=== PATIENT | female | born 1950 | race Two or more races ===

== ENCOUNTER → 2020-10-07 11:09 | Outpatient (BNVA) | payer MEDICARE, SELFPAY | PROVIDERS: PCP Internal Medicine; Visit Provider Hospitalist | DX: Z76.89 Persons encountering health services in other specified circumstances (principal) | CPT/HCPCS: Q3014 ==

== ENCOUNTER 2020-11-07 17:08 | Inpatient (IN) | payer MEDICARE, SELFPAY ==
--- NOTE | ~2020-11-07 | XR_ITS ---
EXAMINATION: XR CHEST CLINICAL INFORMATION: Asthma COMPARISON: Prior chest April 2020 TECHNIQUE: 2 views of the chest were obtained. FINDINGS: Stable calcification of the dorsal aorta No significant abnormality is noted involving the heart, lungs, mediastinum, bony thorax or soft tissues. 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 No change.
[2020-11-07 17:18] VITALS: BP 163/70; PULSE 96; RESP 18; TEMP 36.8; O2SAT 98; BMI 25.7
--- NOTE | 2020-11-07 20:40 | ECG_ITS ---
Test Reason : CHEST PAIN Blood Pressure : / mmHG Vent. Rate : 000 BPM Atrial Rate : 000 BPM P-R Int : 000 ms QRS Dur : 000 ms QT Int : 000 ms P-R-T Axes : 000 000 000 degrees QTc Int : 000 ms No QRS complexes found, no ECG analysis possible When compared with ECG of 07-NOV-2020 17:15, Current undetermined rhythm precludes rhythm comparison, needs review Referred By: Jeanna Jon Electronically Signed By:
[2020-11-07 20:44] VITALS: BP 174/71; PULSE 69; RESP 20; TEMP 36.5; O2SAT 97
--- NOTE | 2020-11-07 20:57 | ED.ASTHMA ---
HPI - Asthma General Chief Complaint: Asthma Stated Complaint: 1 week sob, CP Time Seen by Provider: 11/07/20 20:39 Source: patient Mode of arrival: ambulatory History of Present Illness HPI Narrative: 70-year-old female with a past medical history of asthma on chronic prednisone 5 mg daily, eosinophilia, COPD, presenting to the ED complaining of worsening dry cough, SOB/dyspnea and wheezing x1 week. States symptoms consistent with her asthma. Also reports substernal chest pain. Denies fever, chills, abdominal pain, nausea/vomiting/diarrhea, exposure to COVID-19, recent travel, LE edema MD complaint: asthma attack , shortness of breath and wheezing Related Data Home Medications Medication Instructions Recorded Confirmed aripiprazole 5 mg tablet 5 mg PO DAILY 10/07/20 11/07/20 budesonide 0.5 mg/2 mL suspension 0.5 mg INHALATION BID 10/07/20 11/07/20 for nebulization buspirone 5 mg tablet 5 mg PO BID 10/07/20 11/07/20 escitalopram oxalate 10 mg tablet 10 mg PO DAILY 10/07/20 11/07/20 fluticasone 250 mcg-salmeterol 50 1 inh INHALATION BID 10/07/20 11/07/20 mcg/dose blistr powdr for inhalation mepolizumab 100 mg/mL subcutaneous 100 mg SUBCUT Q4W 10/07/20 11/07/20 syringe montelukast 10 mg tablet 10 mg PO BEDTIME 10/07/20 11/07/20 omeprazole 20 mg capsule,delayed 20 mg PO DAILY 10/07/20 11/07/20 release roflumilast 500 mcg tablet 500 mcg PO DAILY 10/07/20 11/07/20 rosuvastatin 10 mg tablet 10 mg PO BEDTIME 10/07/20 11/07/20 furosemide 1 tab PO DAILY 11/07/20 11/07/20 Previous Rx's Medication Instructions Recorded trazodone 50 mg tablet 50 mg PO BEDTIME PRN 90 Days #90 08/30/20 tab loratadine 10 mg tablet 10 mg PO DAILY #90 tab 09/22/20 prednisone 5 mg tablet 10 mg PO DAILY 30 Days #60 tab 10/07/20 Allergies Allergy/AdvReac Type Severity Reaction Status Date / Time acetaminophen Allergy Unknown vomitting Verified 10/07/20 21:22 [Tylenol-Codeine #3] atorvastatin [Lipitor] Allergy Unknown nausea Verified 10/07/20 21:22 levofloxacin [From LEVAQUIN] Allergy Unknown RASH SOB, Verified 10/07/20 21:22 DIZZYNESS codeine [CODEINE] AdvReac Unknown NAUSEA & Verified 10/07/20 21:22 VOMITING morphine [MORPHINE] AdvReac Unknown NAUSEA & Verified 10/07/20 21:22 VOMITING pravastatin AdvReac Unknown myalgia Verified 10/07/20 21:22 Review of Systems Review of Systems: Constitutional: No Weight loss, No Fever, No Chills ENT/Mouth: No Ear Pain, No Nasal Congestion, No Sinus Pain, No Hoarseness, No sore throat, No Rhinorrhea, No Swallowing Difficulty Cardiovascular: +Chest Pain, + SOB, + Dyspnea on Exertion, No Orthopnea, No Edema, No Palpitations Respiratory: + Cough, No Sputum, + Wheezing Gastrointestinal: No Nausea, No Vomiting, No Diarrhea, No Constipation, No Abdominal pain Genitourinary: No Dysuria, No Hematuria Musculoskeletal: No joint pain, No Myalgias, No Joint Swelling Skin: No Skin Lesions, No rash Neuro: No Headache Yes all other systems are reviewed and are negative [facility] Past Medical History Attestation statement: The following information was validated with the patient. Medical History (Updated 11/08/20 @ 00:39 by ROBBIE Aleman) Asthma Chronic allergic rhinitis Eosinophilia Pneumonia Steroid dependent Surgical History History of knee surgery History of nasal polypectomy History of shoulder surgery History of tubal ligation Family History Family History (Updated 07/18/20 @ 13:34 by Omaira Ureña Shyam) Father Medical history unknown Mother Medical history unknown Social History Social History (Updated 10/07/20 @ 11:14 by Reema Tellez MA) Alcohol intake: never Smoking Status: Never smoker Smoked in Last 30 Days: No Use of substances other than those prescribed or required for medical reasons: No Advance Directives: No Advance Directives Information Provided: Yes Physical Exam Vital Signs: Vital Signs: Last Vital Signs Temp 97.7 F 11/07/20 20:44 Pulse 63 11/07/20 23:39 Resp 20 11/07/20 20:44 BP 174/71 H 11/07/20 20:44 Pulse Ox 97 11/07/20 20:44 Body Mass Index 25.7 Const: General: cooperative and no acute distress Orientation/consciousness: patient oriented x3 Limitations: no limitations HENMT: Head: Yes normal to inspection Ears: hearing grossly normal bilaterally General nose exam: Normal external nose present Face and sinus: Yes normal facial exam Eyes: General: appearance normal, both eyes and all related structures EOM: EOMs intact bilaterally Neck: Neck: Yes normal visual inspection and Yes no meningeal signs Resp: Effort & Inspection: normal respiratory effort Auscultation: wheezes expiratory wheezes, inspiratory wheezes and throughout Cardio: Rate: regular rate Heart sounds: S1 normal heart sound present and S2 normal heart sound present GI: Inspection: Yes normal to inspection Palpation (GI): Soft to palpation, nontender, no guarding and not rigid Skin: Rashes: no rashes Wounds: no wounds Neuro: General: patient oriented x3 and no meningeal signs Gait exam (Neuro): Normal gait present Extrem: General: Yes normal to inspection and Yes no pedal edema Course Course Course Narrative: -labs unremarkable including troponin. CXR negative -COVID-19/influenza/RSV negative -0038-- On re-evaluation patient still with diffuse inspiratory and expiratory wheezing. Hourlong treatment ordered. Plan for admission MDM - Asthma MDM Narrative Medical decision making narrative: 70-year-old female with a past medical history of asthma on chronic prednisone 5 mg daily, eosinophilia, COPD, presenting to the ED complaining of worsening dry cough, SOB/dyspnea and wheezing x1 week. On exam VS as, NAD, diffuse inspiratory and expiratory wheeze. No LE edema or calf tenderness. Concern for asthma/COPD exacerbation vs COVID-19/viral infection. Rule out ACS. Symptoms atypical for PE Plan: EKG, labs, CXR, albuterol, magnesium, Decadron, re-evaluate Lab Data Result diagrams: 11/07/20 21:11 11/07/20 21:11 Labs: Lab Results 11/07/20 11/07/20 11/07/20 Range/Units 21:11 21:11 21:11 WBC 7.9 (4.8-10.8) X10*3/uL RBC 4.71 (4.20-5.50) X10*6/uL Hgb 12.6 (12.0-16.0) g/dl Hct 40.6 (37-47) % MCV 86.2 (80-98) fL MCH 26.8 L (27.0-33.0) pg MCHC 31.0 (31.0-35.0) g/dl RDW 14.0 (11.0-16.0) % Plt Count 377 (160-400) X10*3/uL MPV 9.5 (9.4-12.3) fL Immature Gran % (Auto) 0.1 (0.0-0.4) % Neut % (Auto) 59.8 (45-73) % Lymph % (Auto) 27.1 (20-40) % Kleberg % (Auto) 6.2 (2-11) % Eos % (Auto) 5.7 H (0-4) % Baso % (Auto) 1.1 (0-2) % Lymph # (Auto) 2.1 (1.2-4.9) X10*3/uL Kleberg # (Auto) 0.5 (0.1-1.2) X10*3/uL Eos # (Auto) 0.5 H (0.0-0.4) X10*3/uL Baso # (Auto) 0.1 (0.0-0.2) X10*3/uL Abs Immat Gran (auto) 0.01 (0.00-0.03) X10*3/uL Absolute Neuts (auto) 4.7 (2.0-8.3) X10*3/uL Absolute Nucleated RBC 0.000 (0.0-0.012) X10*3/uL Nucleated RBC % (auto) 0.0 (0.0-0.2) /100WBC Hold Blue Top SEE NOTE Sodium 142 (135-145) mmol/L Potassium 4.1 (3.3-5.1) mmol/L Chloride 105 (96-108) mmol/L Carbon Dioxide 28 (22-29) mmol/L Anion Gap 13 (12-20) BUN 17 H (9-16) mg/dL Creatinine 0.96 (0.5-1.4) mg/dL Estim Creat Clear Calc 49.0 Estimated GFR 57 Random Glucose 102 (60-115) mg/dL Calcium 9.4 (8.4-10.2) mg/dL Magnesium 2.0 (1.6-2.6) mg/dL Ferritin (10-250) ng/mL Total Bilirubin 0.3 (0.0-1.0) mg/dL Direct Bilirubin < 0.2 (0.0-0.5) mg/dL AST 17 (5-31) U/L ALT 11 (0-31) U/L Alkaline Phosphatase 74 (39-117) U/L Lactate Dehydrogenase 170 (122-220) U/L Troponin I High Sens (<3.5-17.0) ng/L C-Reactive Protein 0.43 (< or = 0.50) mg/dL Total Protein 7.5 (6.5-8.0) g/dL Albumin 4.5 (3.5-5.0) g/dL Procalcitonin ng/mL Coronavirus (PCR) (Negative) Influenza Type A (PCR) (Negative) Influenza Type B (PCR) (Negative) RSV RNA Qual (PCR) (Negative) 11/07/20 11/07/20 11/07/20 Range/Units 21:11 21:11 21:11 WBC (4.8-10.8) X10*3/uL RBC (4.20-5.50) X10*6/uL Hgb (12.0-16.0) g/dl Hct (37-47) % MCV (80-98) fL MCH (27.0-33.0) pg MCHC (31.0-35.0) g/dl RDW (11.0-16.0) % Plt Count (160-400) X10*3/uL MPV (9.4-12.3) fL Immature Gran % (Auto) (0.0-0.4) % Neut % (Auto) (45-73) % Lymph % (Auto) (20-40) % Kleberg % (Auto) (2-11) % Eos % (Auto) (0-4) % Baso % (Auto) (0-2) % Lymph # (Auto) (1.2-4.9) X10*3/uL Kleberg # (Auto) (0.1-1.2) X10*3/uL Eos # (Auto) (0.0-0.4) X10*3/uL Baso # (Auto) (0.0-0.2) X10*3/uL Abs Immat Gran (auto) (0.00-0.03) X10*3/uL Absolute Neuts (auto) (2.0-8.3) X10*3/uL Absolute Nucleated RBC (0.0-0.012) X10*3/uL Nucleated RBC % (auto) (0.0-0.2) /100WBC Hold Blue Top Sodium (135-145) mmol/L Potassium (3.3-5.1) mmol/L Chloride (96-108) mmol/L Carbon Dioxide (22-29) mmol/L Anion Gap (12-20) BUN (9-16) mg/dL Creatinine (0.5-1.4) mg/dL Estim Creat Clear Calc Estimated GFR Random Glucose (60-115) mg/dL Calcium (8.4-10.2) mg/dL Magnesium (1.6-2.6) mg/dL Ferritin 67 (10-250) ng/mL Total Bilirubin (0.0-1.0) mg/dL Direct Bilirubin (0.0-0.5) mg/dL AST (5-31) U/L ALT (0-31) U/L Alkaline Phosphatase (39-117) U/L Lactate Dehydrogenase (122-220) U/L Troponin I High Sens < 3.5 (<3.5-17.0) ng/L C-Reactive Protein (< or = 0.50) mg/dL Total Protein (6.5-8.0) g/dL Albumin (3.5-5.0) g/dL Procalcitonin < 0.02 ng/mL Coronavirus (PCR) (Negative) Influenza Type A (PCR) (Negative) Influenza Type B (PCR) (Negative) RSV RNA Qual (PCR) (Negative) 11/07/20 Range/Units 21:20 WBC (4.8-10.8) X10*3/uL RBC (4.20-5.50) X10*6/uL Hgb (12.0-16.0) g/dl Hct (37-47) % MCV (80-98) fL MCH (27.0-33.0) pg MCHC (31.0-35.0) g/dl RDW (11.0-16.0) % Plt Count (160-400) X10*3/uL MPV (9.4-12.3) fL Immature Gran % (Auto) (0.0-0.4) % Neut % (Auto) (45-73) % Lymph % (Auto) (20-40) % Kleberg % (Auto) (2-11) % Eos % (Auto) (0-4) % Baso % (Auto) (0-2) % Lymph # (Auto) (1.2-4.9) X10*3/uL Kleberg # (Auto) (0.1-1.2) X10*3/uL Eos # (Auto) (0.0-0.4) X10*3/uL Baso # (Auto) (0.0-0.2) X10*3/uL Abs Immat Gran (auto) (0.00-0.03) X10*3/uL Absolute Neuts (auto) (2.0-8.3) X10*3/uL Absolute Nucleated RBC (0.0-0.012) X10*3/uL Nucleated RBC % (auto) (0.0-0.2) /100WBC Hold Blue Top Sodium (135-145) mmol/L Potassium (3.3-5.1) mmol/L Chloride (96-108) mmol/L Carbon Dioxide (22-29) mmol/L Anion Gap (12-20) BUN (9-16) mg/dL Creatinine (0.5-1.4) mg/dL Estim Creat Clear Calc Estimated GFR Random Glucose (60-115) mg/dL Calcium (8.4-10.2) mg/dL Magnesium (1.6-2.6) mg/dL Ferritin (10-250) ng/mL Total Bilirubin (0.0-1.0) mg/dL Direct Bilirubin (0.0-0.5) mg/dL AST (5-31) U/L ALT (0-31) U/L Alkaline Phosphatase (39-117) U/L Lactate Dehydrogenase (122-220) U/L Troponin I High Sens (<3.5-17.0) ng/L C-Reactive Protein (< or = 0.50) mg/dL Total Protein (6.5-8.0) g/dL Albumin (3.5-5.0) g/dL Procalcitonin ng/mL Coronavirus (PCR) NEGATIVE (Negative) Influenza Type A (PCR) NEGATIVE (Negative) Influenza Type B (PCR) NEGATIVE (Negative) RSV RNA Qual (PCR) NEGATIVE (Negative) Discharge Plan Discharge Clinical Impression: Asthma Patient Disposition: Admitted As Inpatient Prescriptions: No Action trazodone 50 mg tablet 50 mg PO BEDTIME PRN (Reason: sleep) 90 Days Qty: 90 RF: 2 loratadine 10 mg tablet 10 mg PO DAILY Qty: 90 RF: 3 furosemide 20 mg tablet 1 tab PO DAILY RF: 0 rosuvastatin 10 mg tablet 10 mg PO BEDTIME RF: 0 fluticasone propion-salmeterol 250-50 mcg/dose blister with device 1 inh inhalation BID RF: 0 budesonide 0.5 mg/2 mL suspension for nebulization 0.5 mg inhalation BID RF: 0 montelukast 10 mg tablet 10 mg PO BEDTIME RF: 0 Daliresp 500 mcg tablet 500 mcg PO DAILY RF: 0 aripiprazole 5 mg tablet 5 mg PO DAILY RF: 0 escitalopram oxalate 10 mg tablet 10 mg PO DAILY RF: 0 buspirone 5 mg tablet 5 mg PO BID RF: 0 Nucala 100 mg/mL syringe 100 mg subcut Q4W RF: 0 omeprazole 20 mg capsule,delayed release(DR/EC) 20 mg PO DAILY RF: 0 prednisone 5 mg tablet 10 mg PO DAILY 30 Days Qty: 60 RF: 3
[2020-11-07 21:17] LABS: MANUAL DIFF FLAG NO
[2020-11-07] MEDS: Magnesium Sulfate/H2O 2 GM/50 ML PIGGYBACK IV (21:22)
[2020-11-07] MEDS: Albuterol Sulfate 90 MCG 8 GM INHALER 4 PUFF INHALE (21:26)
[2020-11-07 21:29] LABS: Basophils Absolute Auto 0.1 X10*3/uL (0.0-0.2); Basophils Percent Auto 1.1 % (0-2); Eosinophils Absolute Auto 0.5 X10*3/uL (0.0-0.4); Eosinophils Percent Auto 5.7 % (0-4); Hematocrit 40.6 % (37-47); Hemoglobin 12.6 g/dl (12.0-16.0); Imm Gran Abs Auto 0.01 X10*3/uL (0.00-0.03); Imm Gran Pct Auto 0.1 % (0.0-0.4); Lymphocytes Absolute Auto 2.1 X10*3/uL (1.2-4.9); Lymphocytes Percent Auto 27.1 % (20-40); Mean Corpuscular Hemoglobin 26.8 pg (27.0-33.0); Mean Corpuscular Volume 86.2 fL (80-98); Mean Platelet Volume 9.5 fL (9.4-12.3); Monocytes Absolute Auto 0.5 X10*3/uL (0.1-1.2); Monocytes Percent Auto 6.2 % (2-11); Neutrophils Absolute Auto 4.7 X10*3/uL (2.0-8.3); Neutrophils Percent Auto 59.8 % (45-73); Platelet Count 377 X10*3/uL (160-400); Red Blood Count 4.71 X10*6/uL (4.20-5.50); White Blood Count 7.9 X10*3/uL (4.8-10.8)
--- NOTE | 2020-11-07 21:41 | PC.NURSE ---
PATIENT DOES NOT WANT PRESENTLY DECADRON. PROVIDER AWARE. AWAITING COVID RESULTS FOR FURTHER DISPO.
[2020-11-07 21:43] LABS: Alanine Aminotransferase 11 U/L (0-31); Albumin Level 4.5 g/dL (3.5-5.0); Alkaline Phosphatase 74 U/L (39-117); Anion Gap 13 (12-20); Aspartate Amino Transferase 17 U/L (5-31); Bilirubin Direct < 0.2 mg/dL (0.0-0.5); Bilirubin Total 0.3 mg/dL (0.0-1.0); Blood Urea Nitrogen 17 mg/dL (9-16); C Reactive Protein 0.43 mg/dL (< or = 0.50); Calcium 9.4 mg/dL (8.4-10.2); Carbon Dioxide 28 mmol/L (22-29); Chloride 105 mmol/L (96-108); Estimated Glomerular Filt Rate 57; Glucose Random 102 mg/dL (60-115); Lactate Dehydrogenase 170 U/L (122-220); Potassium 4.1 mmol/L (3.3-5.1); Sodium 142 mmol/L (135-145); Total Protein 7.5 g/dL (6.5-8.0)
[2020-11-07 21:46] LABS: Troponin-I High Sensitivity < 3.5 ng/L (<3.5-17.0)
[2020-11-07 22:01] LABS: Ferritin 67 ng/mL (10-250); Procalcitonin < 0.02 ng/mL
[2020-11-07 22:32] LABS: Influenza A PCR NEGATIVE (Negative); Influenza B PCR NEGATIVE (Negative); Resp Syncy Virus RNA Qual PCR NEGATIVE (Negative); SARS COV2 PCR INHOUSE NEGATIVE (Negative)
[2020-11-07 23:39] VITALS: PULSE 63; O2SAT 99
[2020-11-07] MEDS: Albuterol/Iprat 2.5/0.5MG 3 ML AMPUL.NEB INHALE (23:39)
[2020-11-07] MEDS: methylPREDNISolone Sod Succ/PF 125 MG/2 ML VIAL IVPUSH (23:49)
[2020-11-08] VITALS (19 sets, daily range): BP systolic 128–183; BP diastolic 53–85; PULSE 72–112; RESP 14–22; TEMP 36.1–37.1; O2SAT 95–100; BMI 30.1
[2020-11-08] MEDS: Albuterol Sulfate (0.083%) 2.5 MG/3 ML VIAL.NEB 10 MG INHALE (00:51)
--- NOTE | 2020-11-08 00:51 | P.HPHOSP_ITS ---
History of Present Illness Date of Service: 11/08/20 Chief Complaint: Shortness of breath 70-year-old female with a past medical history of COPD/asthma on chronic prednisone, Toprol mass, recently started on [place] monthly injections; history of eosinophilia, anxiety, depression presented to the hospital with a chief complaint of shortness of breath. Patient reported that she has been having increased shortness of breath over the past 1 week. Also associated with cough. Denies any numbness tingling. Mentions she has intermittent episodes of chest pain. Denies any fevers. Denies any GI or symptoms. Review of all other systems is negative except mentioned above ER course: Per ER team patient appeared to be in mild distress on presentation, saturating at 98% on room air, speaking in full sentences. Given magnesium sulfate, nebulizations, steroids. Admitted to the hospital for further management. EKG negative. Troponin negative. [facility] Medical History Asthma Chronic allergic rhinitis Eosinophilia Pneumonia Steroid dependent Family History (Updated 07/18/20 @ 13:34 by Omaira Ureña [facility]) Father Medical history unknown Mother Medical history unknown Surgical History History of knee surgery History of nasal polypectomy History of shoulder surgery History of tubal ligation Social History (Updated 10/07/20 @ 11:14 by Reema Tellez MA) Household Members: None Housing: Apartment Alcohol intake: never Smoking Status: Never smoker service: No Current occupational status: disabled Meds Allergies Allergy/AdvReac Type Severity Reaction Status Date / Time acetaminophen Allergy Unknown vomitting Verified 10/07/20 21:22 [Tylenol-Codeine #3] atorvastatin [Lipitor] Allergy Unknown nausea Verified 10/07/20 21:22 levofloxacin [From LEVAQUIN] Allergy Unknown RASH SOB, Verified 10/07/20 21:22 DIZZYNESS codeine [CODEINE] AdvReac Unknown NAUSEA & Verified 10/07/20 21:22 VOMITING morphine [MORPHINE] AdvReac Unknown NAUSEA & Verified 10/07/20 21:22 VOMITING pravastatin AdvReac Unknown myalgia Verified 10/07/20 21:22 Home Medications Medication Instructions Recorded Confirmed Type aripiprazole 5 mg tablet 5 mg PO DAILY 10/07/20 11/07/20 History budesonide 0.5 mg/2 mL suspension 0.5 mg INHALATION BID 10/07/20 11/07/20 History for nebulization buspirone 5 mg tablet 5 mg PO BID 10/07/20 11/07/20 History escitalopram oxalate 10 mg tablet 10 mg PO DAILY 10/07/20 11/07/20 History fluticasone 250 mcg-salmeterol 50 1 inh INHALATION BID 10/07/20 11/07/20 History mcg/dose blistr powdr for inhalation mepolizumab 100 mg/mL subcutaneous 100 mg SUBCUT Q4W 10/07/20 11/07/20 History syringe montelukast 10 mg tablet 10 mg PO BEDTIME 10/07/20 11/07/20 History roflumilast 500 mcg tablet 500 mcg PO DAILY 10/07/20 11/07/20 History rosuvastatin 10 mg tablet 10 mg PO BEDTIME 10/07/20 11/07/20 History furosemide 1 tab PO DAILY 11/07/20 11/07/20 History Physical Exam Vital Signs and Narrative: Vital Signs: Last Vital Signs Temp 97.9 F 11/08/20 00:00 Pulse 80 11/08/20 00:00 Resp 16 11/08/20 00:00 BP 154/67 H 11/08/20 00:00 Pulse Ox 98 11/08/20 00:00 Body Mass Index 25.7 Gen: Appears be in no acute distress. Speaks in full sentences HEENT: NCAT, Moist mucosa. Pulmonary: Bilateral inspiratory and expiratory wheezing noticed CVS: Normal S1-S2 Abdomen: BS+, Soft, Nontender Extremities: Warm well perfused Neuro: Alert and awake. Results Labs CBC and Chem 7: 11/08/20 06:51 11/09/20 06:42 Labs: Laboratory Results - last 24 hr 11/07/20 11/07/20 11/07/20 21:11 21:11 21:11 MCV 86.2 MCH 26.8 L MCHC 31.0 RDW 14.0 Plt Count 377 MPV 9.5 Immature Gran % (Auto) 0.1 Neut % (Auto) 59.8 Lymph % (Auto) 27.1 Rowan % (Auto) 6.2 Eos % (Auto) 5.7 H Baso % (Auto) 1.1 Lymph # (Auto) 2.1 Rowan # (Auto) 0.5 Eos # (Auto) 0.5 H Baso # (Auto) 0.1 Abs Immat Gran (auto) 0.01 Absolute Neuts (auto) 4.7 Absolute Nucleated RBC 0.000 Nucleated RBC % (auto) 0.0 Hold Blue Top SEE NOTE Anion Gap 13 Estim Creat Clear Calc 49.0 Estimated GFR 57 Random Glucose 102 Calcium 9.4 Magnesium 2.0 Ferritin Total Bilirubin 0.3 Direct Bilirubin < 0.2 AST 17 ALT 11 Alkaline Phosphatase 74 Lactate Dehydrogenase 170 Troponin I High Sens C-Reactive Protein 0.43 Total Protein 7.5 Albumin 4.5 Procalcitonin Coronavirus (PCR) Influenza Type A (PCR) Influenza Type B (PCR) RSV RNA Qual (PCR) 11/07/20 11/07/20 11/07/20 21:11 21:11 21:11 MCV MCH MCHC RDW Plt Count MPV Immature Gran % (Auto) Neut % (Auto) Lymph % (Auto) Rowan % (Auto) Eos % (Auto) Baso % (Auto) Lymph # (Auto) Rowan # (Auto) Eos # (Auto) Baso # (Auto) Abs Immat Gran (auto) Absolute Neuts (auto) Absolute Nucleated RBC Nucleated RBC % (auto) Hold Blue Top Anion Gap Estim Creat Clear Calc Estimated GFR Random Glucose Calcium Magnesium Ferritin 67 Total Bilirubin Direct Bilirubin AST ALT Alkaline Phosphatase Lactate Dehydrogenase Troponin I High Sens < 3.5 C-Reactive Protein Total Protein Albumin Procalcitonin < 0.02 Coronavirus (PCR) Influenza Type A (PCR) Influenza Type B (PCR) RSV RNA Qual (PCR) 11/07/20 21:20 MCV MCH MCHC RDW Plt Count MPV Immature Gran % (Auto) Neut % (Auto) Lymph % (Auto) Rowan % (Auto) Eos % (Auto) Baso % (Auto) Lymph # (Auto) Rowan # (Auto) Eos # (Auto) Baso # (Auto) Abs Immat Gran (auto) Absolute Neuts (auto) Absolute Nucleated RBC Nucleated RBC % (auto) Hold Blue Top Anion Gap Estim Creat Clear Calc Estimated GFR Random Glucose Calcium Magnesium Ferritin Total Bilirubin Direct Bilirubin AST ALT Alkaline Phosphatase Lactate Dehydrogenase Troponin I High Sens C-Reactive Protein Total Protein Albumin Procalcitonin Coronavirus (PCR) NEGATIVE Influenza Type A (PCR) NEGATIVE Influenza Type B (PCR) NEGATIVE RSV RNA Qual (PCR) NEGATIVE Imaging Radiologist's Impressions: Impressions Chest X-Ray 11/07/20 17:40 IMPRESSION: No acute disease. No change. Assessment and Plan (1) Chronic obstructive asthma with exacerbation: Status: Acute 70-year-old female with a past medical history of COPD/asthma on chronic prednisone presented to the hospital with a chief complaint of increased shortness of breath. COPD/asthma exacerbation: Currently not in distress. Saturating well on room air. Continue Solu-Medrol 40 mg IV Q 6h Continue nebulizations standing and p.r.n. Will consult pulmonology Hold home oral prednisone All other chronic conditions, home medications will be continued GI prophylaxis: Pepcid DVT prophylaxis: Lovenox Full code
[2020-11-08] MEDS: Azithromycin 500 MG TABLET PO (02:32)
--- NOTE | 2020-11-08 02:33 | PC.NURSE ---
pt refused enoxaparin due to she gets bruises. teaching done on the need and use of the medication and pt still refused.
--- NOTE | 2020-11-08 04:39 | PC.NURSE ---
TROPONIN DUE AT [address] WILKINSON
--- NOTE | 2020-11-08 05:29 | PC.NURSE ---
pt states she has a sore throat from coughing.
[2020-11-08] MEDS: Omeprazole 20 MG CAPSULE.DR PO (06:38)
--- NOTE | 2020-11-08 06:41 | PC.NURSE ---
with staff genetic counselor at bedside pt states she wants to leave due to the pandemic and no room upstairs.
[2020-11-08 07:03] LABS: Basophils Percent Auto 0.3 % (0-2); Hematocrit 42.4 % (37-47); Imm Gran Abs Auto 0.05 X10*3/uL (0.00-0.03); Imm Gran Pct Auto 0.6 % (0.0-0.4); Lymphocytes Absolute Auto 0.4 X10*3/uL (1.2-4.9); Lymphocytes Percent Auto 5.4 % (20-40); MANUAL DIFF FLAG SCAN; Mean Corpuscular HGB Conc 30.7 g/dl (31.0-35.0); Mean Corpuscular Hemoglobin 26.7 pg (27.0-33.0); Mean Corpuscular Volume 87.2 fL (80-98); Mean Platelet Volume 9.3 fL (9.4-12.3); Monocytes Absolute Auto 0.1 X10*3/uL (0.1-1.2); Monocytes Percent Auto 0.8 % (2-11); Neutrophils Absolute Auto 7.2 X10*3/uL (2.0-8.3); Neutrophils Percent Auto 92.9 % (45-73); Platelet Count 356 X10*3/uL (160-400); Red Blood Count 4.86 X10*6/uL (4.20-5.50); Red Cell Distribution Width 14.3 % (11.0-16.0); SCAN SMEAR FLAG 1; White Blood Count 7.8 X10*3/uL (4.8-10.8)
[2020-11-08 07:46] LABS: SLIDE REVIEW VERIFIED
[2020-11-08] MEDS: Albuterol/Iprat 2.5/0.5MG 3 ML AMPUL.NEB INHALE ×4 (07:53→19:47)
[2020-11-08] MEDS: Furosemide 20 MG TABLET PO (08:43)
[2020-11-08] MEDS: Loratadine 10 MG TABLET PO (08:46)
--- NOTE | 2020-11-08 09:31 | PC.NURSE ---
pt refused her Escitalopram and Buspirone
[2020-11-08] MEDS: 0.9 % Sodium Chloride Flush 3 ML SYRINGE IVFLUSH ×3 (09:37→20:22)
--- NOTE | 2020-11-08 10:45 | HO.PM.IMPN ---
Subjective Subjective Date of Service: 11/08/20 Interval History: Seen in f/u for asthma exaceration. Persisent wheeze and doesn't feel good, covid negative. Review of Systems Gen: no fever Resp: + sob, no cough, wheeze CV: no chest, no BELL, no leg edema GI: No n/v, no abd pain Neuro: No confusion Physical Exam Vital Signs: Vital Signs: Last Vital Signs Temp 97.3 F 11/08/20 08:07 Pulse 94 11/08/20 10:25 Resp 14 11/08/20 10:25 BP 140/74 H 11/08/20 10:25 Pulse Ox 98 11/08/20 10:25 Body Mass Index 25.7 Const: General: cooperative and no acute distress Resp: Effort & Inspection: normal respiratory effort Auscultation: wheezes expiratory wheezes, inspiratory wheezes and throughout Cardio: Rate: regular rate Heart sounds: S1 normal heart sound present and S2 normal heart sound present GI: Inspection: Yes normal to inspection Palpation (GI): Soft to palpation, nontender, no guarding and not rigid Skin: Rashes: no rashes Neuro: Motor exam (neuro): 5/5 motor strength present throughout Extrem: General: Yes normal to inspection and Yes no pedal edema Psych: Appearance: grossly normal Objective Data Current Medications Generic Name Dose Route Start Last Admin Trade Name Freq PRN Reason Stop Dose Admin Albuterol/Ipratropium 3 ml 11/08/20 08:00 11/08/20 07:53 Albuterol/Iprat 2.5/0.5mg 3 Ml Ampul.Neb INHALE 3 ml RQ4H WHILE AWAKE THANH Administration Aripiprazole 5 mg 11/08/20 09:00 11/08/20 09:35 Aripiprazole 5 Mg Tablet PO Not Given DAILY THANH Azithromycin 500 mg 11/08/20 00:45 11/08/20 02:32 Azithromycin 500 Mg Tablet PO 500 mg Q24H THANH Administration Buspirone HCl 5 mg 11/08/20 09:00 11/08/20 09:35 Buspirone Hcl 5 Mg Tablet PO Not Given BID THANH Enoxaparin Sodium 40 mg 11/08/20 00:45 11/08/20 02:32 Enoxaparin Sodium 40 Mg/0.4 Ml Syringe SUBCUT Not Given Q24H THANH Escitalopram Oxalate 10 mg 11/08/20 09:00 11/08/20 09:35 Escitalopram Oxalate 10 Mg Tablet PO Not Given DAILY [facility] Furosemide 20 mg 11/08/20 09:00 11/08/20 08:43 Furosemide 20 Mg Tablet PO 20 mg DAILY [facility] Administration Protocol Guaifenesin/Codeine Phosphate 5 ml 11/08/20 10:45 Guaifen/Codeine Sf 200/20/10ml 10 Ml Liquid PO Q6H PRN Cough Loratadine 10 mg 11/08/20 09:00 11/08/20 08:46 Loratadine 10 Mg Tablet PO 10 mg DAILY [facility] Administration Magnesium Hydroxide 30 ml 11/08/20 00:45 Milk Of Magnesia 30 Ml Oral.Susp PO DAILY PRN Constipation Methylprednisolone Sodium Succinate 40 mg 11/08/20 06:00 11/08/20 06:38 Methylprednisolone Sod Succ/Pf 40 Mg/Ml Vial IVPUSH 40 mg Q6H THANH Administration Montelukast Sodium 10 mg 11/08/20 21:00 Montelukast Sodium 10 Mg Tablet PO BEDTIME [facility] Nitroglycerin 0.4 mg 11/09/20 08:46 Nitroglycerin 0.4 Mg Tab.Subl SUBLINGUAL Q5M PRN Chest Pain Omeprazole 20 mg 11/08/20 06:30 11/08/20 06:38 Omeprazole 20 Mg Capsule. PO 20 mg DAILY@0630 [facility] Administration Pharmacy Consult 1 each 11/07/20 20:39 Consult Rx Perform Med Rec MISCELLANE ONCE PRN Consult order Sodium Chloride 3 ml 11/08/20 08:00 11/08/20 09:37 0.9 % Sodium Chloride Flush 3 Ml Syringe IVFLUSH 3 ml QSHIFT [facility] Administration Trazodone HCl 50 mg 11/08/20 00:49 Trazodone Hcl 50 Mg Tablet PO BEDTIME PRN sleep Labs CBC & Chem 7: 11/08/20 06:51 11/07/20 21:11 Assessment and Plan (1) Chronic obstructive asthma with exacerbation: Status: Acute Assessment and Plan: 70-year-old female with a past medical history of COPD/asthma on chronic prednisone admitted for exacerbation of ashtma /copd. COPD/asthma exacerbation: Good oxygenation, no resp distress -IV steroid -Bronchodilators scheduled and PRN -Pulmonology consult -Robitussin AC for cough All other chronic conditions, home medications will be continued GI prophylaxis: Pepcid DVT prophylaxis: Lovenox Full code
[2020-11-08] MEDS: guaiFENesin 100 MG/5 ML LIQUID PO (12:24)
--- NOTE | 2020-11-08 14:27 | CONS_ITS ---
DATE OF SERVICE: 11/08/2020 HISTORY OF PRESENT ILLNESS: This 70-year-old female is here because of increased cough and shortness of breath of 3 to 4 days' duration. Denies fever or chills. She felt quite weak in general and presented to the emergency room. She is being admitted with acute exacerbation of bronchial asthma/COPD. At the time of my examination, she claims to be feeling better and fairly comfortable. She is on room air, saturating well. REVIEW OF SYSTEMS: She has chronic cough and shortness of breath with some wheezing. She has had no fever, chills, or sweating. She continues to have nausea and poor appetite. No diarrhea. No urinary symptoms. No generalized aches and pains. She has chronic nasal congestion as usual. PAST MEDICAL HISTORY: Includes longstanding allergic rhinitis and bronchial asthma. Recently noted to have eosinophilia and elevated IgE level, so in addition to her usual respiratory medications, she has been started on Nucala injection once a month. The patient has been steroid-dependent in the past, but now being weaned off the oral prednisone. SOCIAL HISTORY: The patient is nonsmoker and nondrinker. PHYSICAL EXAMINATION: GENERAL: A 70-year-old female, who is relatively comfortable at this time. VITAL SIGNS: Respiratory rate is 14. Temperature normal. EARS, NOSE, AND THROAT: Examination is normal. There is no acute infection. NECK: No jugular venous distention. Trachea in midline. CHEST: Symmetrical. Percussion note is resonant. Breath sounds are distant on both sides. Only a few expiratory wheezes and rhonchi heard over the lower lobes. CARDIAC: PMI in fifth intercostal space at midclavicular line. Heart sounds are normal. No murmurs or gallops. ABDOMEN: Flat, soft, and nontender. EXTREMITIES: No edema or varicosities. Peripheral pulses are normal. IMAGING: Chest x-ray shows no acute infection, pneumonia, or any nodule. LABORATORY DATA: White cell count 7.8, hemoglobin 13, eosinophil count on 11/07 was 5.7 and today 0. IMPRESSION: 1. Long-standing allergic rhinitis/bronchial asthma/chronic obstructive pulmonary disease. 2. Mild acute exacerbation. 3. COVID-19 test is negative. RECOMMENDATIONS: The patient can be treated with IV Solu-Medrol for 1 more day, then put her on prednisone 40 mg a day for 5 days. DuoNeb updrafts q.4 to 6 hours p.r.n. The patient does not need oxygen supplementation. The patient may be discharged to home in the next 1 or 2 days on her usual regimen, which she is on at home. Thank you very much for asking me to see this patient. MD MICHELLE Obregon/YULISA / [phone]
[2020-11-08] MEDS: Montelukast Sodium 10 MG TABLET PO (20:22)
[2020-11-09 03:30] VITALS: BP 131/64; PULSE 86; RESP 19; TEMP 36.4; O2SAT 96
[2020-11-09] MEDS: Omeprazole 20 MG CAPSULE.DR PO (05:27)
[2020-11-09 07:31] VITALS: BP 141/68; PULSE 80; RESP 19; TEMP 36.4; O2SAT 98
[2020-11-09] MEDS: Albuterol/Iprat 2.5/0.5MG 3 ML AMPUL.NEB INHALE ×2 (07:44→11:38)
[2020-11-09 07:46] VITALS: PULSE 94; O2SAT 97
[2020-11-09 08:05] LABS: Anion Gap 17 (12-20); Blood Urea Nitrogen 24 mg/dL (9-16); Calcium 9.6 mg/dL (8.4-10.2); Carbon Dioxide 26 mmol/L (22-29); Chloride 104 mmol/L (96-108); Creatinine Clr Calc Pharmacy 46.9; Estimated Glomerular Filt Rate 50; Glucose Random 128 mg/dL (60-115); Potassium 5.2 mmol/L (3.3-5.1); Sodium 142 mmol/L (135-145)
[2020-11-09] MEDS: Furosemide 20 MG TABLET PO (09:22)
[2020-11-09] MEDS: 0.9 % Sodium Chloride Flush 3 ML SYRINGE IVFLUSH (09:22)
[2020-11-09] MEDS: Loratadine 10 MG TABLET PO (09:22)
--- NOTE | 2020-11-09 09:56 | MHC.CM.PN ---
nurse care ,agency development manager note electronic medical record reviewed along with case discussed with staff nurse and hospitalist,. and patient in speaking with nursing patient has been given diabetic teaching with good understanding , he has family members who are also diabetics, he feels comfortable with the teaching he has received, he is not considered homebound and does not feel he will need vna at discharge . discharge plan home he will take his prescription s to the pharmacy and encouraged to ask the pharmacist about his diabetic meds and to make sure he has all diabetic related supplies patient instructed to call his pcp for post hospital discharge follow up transportation patient to self arrange
--- NOTE | 2020-11-09 10:02 | MHC.CM.PN ---
nurse hospice care transitions coordinator note electronic medical record reviewed along with case discussed with staff nurse and hospitalist, met with patient she lives alone she is independent in all her adls and mobility her sister assists her with her house work, she is followed by dr mary moreau and dr nathan(pulmonary) she als has mental health counseling , she use to see her therapist each week and psychiatrist monthly , but because of the covid she is followed by phone , she has no services in the home and does not feel she will need the vna at discharge , she reported that the hospitalist informed her she woud be discharged home today , she has been trying to reach family /friends and unable to have someone transport her . she will need wheelchair van or taxi voucher at time of discharge discharge plan home no services self resumption of her mental health counseling pcp dr mary moreau and councilor dr nathan patient instructed to call for post hospital discharge follow up . health care proxy on file transportation taxi voucher
--- NOTE | 2020-11-09 11:20 | PM.DS ---
DS: Providers Provider Date of Service: 11/09/20 Date of admission: 11/08/20 00:45 Primary care physician: Angelique Valentine MD Consults: 11/08/20 00:45 Consult to Pulmonology Routine Consulting Provider: Guzman Pinon Reason for consultation: ASTHMA DS: Diagnosis Discharge Diagnosis (1) Chronic obstructive asthma with exacerbation: Status: Acute DS: Medications Discharge Medications Home Medications: Home Medications Medication Instructions Recorded Confirmed aripiprazole 5 mg tablet 5 mg PO DAILY 10/07/20 11/07/20 budesonide 0.5 mg/2 mL suspension 0.5 mg INHALATION BID 10/07/20 11/07/20 for nebulization buspirone 5 mg tablet 5 mg PO BID 10/07/20 11/07/20 escitalopram oxalate 10 mg tablet 10 mg PO DAILY 10/07/20 11/07/20 fluticasone 250 mcg-salmeterol 50 1 inh INHALATION BID 10/07/20 11/07/20 mcg/dose blistr powdr for inhalation mepolizumab 100 mg/mL subcutaneous 100 mg SUBCUT Q4W 10/07/20 11/07/20 syringe montelukast 10 mg tablet 10 mg PO BEDTIME 10/07/20 11/07/20 omeprazole 20 mg capsule,delayed 20 mg PO DAILY 10/07/20 11/07/20 release roflumilast 500 mcg tablet 500 mcg PO DAILY 10/07/20 11/07/20 rosuvastatin 10 mg tablet 10 mg PO BEDTIME 10/07/20 11/07/20 furosemide 1 tab PO DAILY 11/07/20 11/07/20 Previous Rx's Medication Instructions Recorded trazodone 50 mg tablet 50 mg PO BEDTIME PRN 90 Days #90 08/30/20 tab loratadine 10 mg tablet 10 mg PO DAILY #90 tab 09/22/20 prednisone 5 mg tablet 10 mg PO DAILY 30 Days #60 tab 10/07/20 guaifenesin 100 mg PO Q6H PRN #30 ml 11/09/20 prednisone 40 mg PO DAILY #8 tab 11/09/20 DS: Summary Hospital Course Hospital Course: 70-year-old female with history of asthma frequent hospitalization who presented to the emergency room with shortness of breath and found to be in exacerbation of asthma. She was admitted overnight treated with bronchodilators by nebulizers intravenous steroid and the by the next morning was doing just well her lung exam has significantly improved she does have chronic underlying wheezes. At this point she wants to go home as she feels better and will be transitioned to oral prednisone for an additional 4 days and to continue use of her inhalers at home and to follow up with her primary care physician. She is a nonsmoker. Time Spent with Patient Time attestation: Total time spent providing and/or coordinating discharge services: Discharge coordination time: Greater than 30 minutes Physical Exam Vital Signs: Vital Signs: Last Vital Signs Temp 97.5 F 11/09/20 07:31 Pulse 94 11/09/20 07:46 Resp 19 11/09/20 07:31 BP 141/68 H 11/09/20 07:31 Pulse Ox 98 11/09/20 07:31 Body Mass Index 30.1 Const: General: cooperative and no acute distress Resp: Effort & Inspection: normal respiratory effort Auscultation: wheezes (these are normal for her) inspiratory wheezes and throughout Cardio: Rate: regular rate Heart sounds: S1 normal heart sound present and S2 normal heart sound present GI: Inspection: Yes normal to inspection Palpation (GI): Soft to palpation, nontender, no guarding and not rigid Skin: Rashes: no rashes Neuro: Motor exam (neuro): 5/5 motor strength present throughout Extrem: General: Yes normal to inspection and Yes no pedal edema Psych: Appearance: grossly normal DS: Data Data Completed and Pending Labs on day of discharge: Laboratory Tests 11/07/20 11/07/20 11/07/20 21:11 21:11 21:11 WBC 7.9 RBC 4.71 Hgb 12.6 Hct 40.6 MCV 86.2 MCH 26.8 L MCHC 31.0 RDW 14.0 Plt Count 377 MPV 9.5 Immature Gran % (Auto) 0.1 Neut % (Auto) 59.8 Lymph % (Auto) 27.1 [place] % (Auto) 6.2 Eos % (Auto) 5.7 H Baso % (Auto) 1.1 Lymph # (Auto) 2.1 [place] # (Auto) 0.5 Eos # (Auto) 0.5 H Baso # (Auto) 0.1 Abs Immat Gran (auto) 0.01 Absolute Neuts (auto) 4.7 Absolute Nucleated RBC 0.000 Nucleated RBC % (auto) 0.0 Smear Tech's Comments Hold Blue Top SEE NOTE Sodium 142 Potassium 4.1 Chloride 105 Carbon Dioxide 28 Anion Gap 13 BUN 17 H Creatinine 0.96 Estim Creat Clear Calc 49.0 Estimated GFR 57 Random Glucose 102 Calcium 9.4 Magnesium 2.0 Ferritin Total Bilirubin 0.3 Direct Bilirubin < 0.2 AST 17 ALT 11 Alkaline Phosphatase 74 Lactate Dehydrogenase 170 Troponin I High Sens C-Reactive Protein 0.43 Total Protein 7.5 Albumin 4.5 Procalcitonin Coronavirus (PCR) Influenza Type A (PCR) Influenza Type B (PCR) RSV RNA Qual (PCR) 11/07/20 11/07/20 11/07/20 21:11 21:11 21:11 WBC RBC Hgb Hct MCV MCH MCHC RDW Plt Count MPV Immature Gran % (Auto) Neut % (Auto) Lymph % (Auto) [place] % (Auto) Eos % (Auto) Baso % (Auto) Lymph # (Auto) [place] # (Auto) Eos # (Auto) Baso # (Auto) Abs Immat Gran (auto) Absolute Neuts (auto) Absolute Nucleated RBC Nucleated RBC % (auto) Smear Tech's Comments Hold Blue Top Sodium Potassium Chloride Carbon Dioxide Anion Gap BUN Creatinine Estim Creat Clear Calc Estimated GFR Random Glucose Calcium Magnesium Ferritin 67 Total Bilirubin Direct Bilirubin AST ALT Alkaline Phosphatase Lactate Dehydrogenase Troponin I High Sens < 3.5 C-Reactive Protein Total Protein Albumin Procalcitonin < 0.02 Coronavirus (PCR) Influenza Type A (PCR) Influenza Type B (PCR) RSV RNA Qual (PCR) 11/07/20 11/08/20 11/09/20 21:20 06:51 06:42 WBC 7.8 RBC 4.86 Hgb 13.0 Hct 42.4 MCV 87.2 MCH 26.7 L MCHC 30.7 L RDW 14.3 Plt Count 356 MPV 9.3 L Immature Gran % (Auto) 0.6 H Neut % (Auto) 92.9 H Lymph % (Auto) 5.4 L [place] % (Auto) 0.8 L Eos % (Auto) 0.0 Baso % (Auto) 0.3 Lymph # (Auto) 0.4 L [place] # (Auto) 0.1 Eos # (Auto) 0.0 Baso # (Auto) 0.0 Abs Immat Gran (auto) 0.05 H Absolute Neuts (auto) 7.2 Absolute Nucleated RBC 0.000 Nucleated RBC % (auto) 0.0 Smear Tech's Comments VERIFIED Hold Blue Top Sodium 142 Potassium 5.2 H D Chloride 104 Carbon Dioxide 26 Anion Gap 17 BUN 24 H Creatinine 1.08 Estim Creat Clear Calc 46.9 Estimated GFR 50 Random Glucose 128 H Calcium 9.6 Magnesium Ferritin Total Bilirubin Direct Bilirubin AST ALT Alkaline Phosphatase Lactate Dehydrogenase Troponin I High Sens C-Reactive Protein Total Protein Albumin Procalcitonin Coronavirus (PCR) NEGATIVE Influenza Type A (PCR) NEGATIVE Influenza Type B (PCR) NEGATIVE RSV RNA Qual (PCR) NEGATIVE Discharge Plan Discharge Anticipated Discharge Date/Time: 11/09/20 11:11 Patient Disposition: Home, Self-Care Referrals: Angelique Li MD [Primary Care Provider] - Discharge Medications: New guaifenesin 100 mg/5 mL Liquid 100 mg PO Q6H PRN (Reason: Cough) Qty: 30 RF: 0 prednisone 20 mg tablet 40 mg PO DAILY Qty: 8 RF: 0 Continued trazodone 50 mg tablet 50 mg PO BEDTIME PRN (Reason: sleep) 90 Days Qty: 90 RF: 2 loratadine 10 mg tablet 10 mg PO DAILY Qty: 90 RF: 3 furosemide 20 mg tablet 1 tab PO DAILY RF: 0 rosuvastatin 10 mg tablet 10 mg PO BEDTIME RF: 0 fluticasone propion-salmeterol 250-50 mcg/dose blister with device 1 inh inhalation BID RF: 0 budesonide 0.5 mg/2 mL suspension for nebulization 0.5 mg inhalation BID RF: 0 montelukast 10 mg tablet 10 mg PO BEDTIME RF: 0 roflumilast 500 mcg tablet 500 mcg PO DAILY RF: 0 aripiprazole 5 mg tablet 5 mg PO DAILY RF: 0 escitalopram oxalate 10 mg tablet 10 mg PO DAILY RF: 0 buspirone 5 mg tablet 5 mg PO BID RF: 0 mepolizumab 100 mg/mL syringe 100 mg subcut Q4W RF: 0 omeprazole 20 mg capsule,delayed release(DR/EC) 20 mg PO DAILY RF: 0 prednisone 5 mg tablet 10 mg PO DAILY 30 Days Qty: 60 RF: 3 Discharge Orders: Discharge Order (Routine); Ordered 11/09/20 Ordered By: Alfonso Burton Diet: advance to usual diet Activity on Discharge: As tolerated Stand Alone Forms: Patient Portal Discharge page Visit Report Forms: Patient Portal Discharge page Care Plan Goals: resolution of asthma exacerbation and prevention of rehospitaliation Health Concerns: recurrent asthma exacerbation Plan of Treatment: Take Prednisone and use inhalers as directed and follow up with your Doctor in a week
[2020-11-09 11:40] VITALS: PULSE 92; O2SAT 98
[2020-11-09 11:57] VITALS: BP 134/59; PULSE 91; RESP 17; TEMP 36.6; O2SAT 98
== END 2020-11-09 14:26 | disposition home or self-care (01) | DRG 203 ==
LOC: HO.ED 11-08 00:39 → HO.EDOVER 11-08 00:56 → HO.S3 11-08 13:49
PROVIDERS: Physician Assistant; Admitting Provider Hospitalist; Emergency Provider Internal Medicine; PCP Internal Medicine; Visit Provider Internal Medicine
DX: J45.901 Unspecified asthma with (acute) exacerbation (principal); Z20.822 Contact with and (suspected) exposure to COVID-19; Z88.5 Allergy status to narcotic agent; Z88.6 Allergy status to analgesic agent; Z79.51 Long term (current) use of inhaled steroids; Z79.52 Long term (current) use of systemic steroids; Z79.899 Other long term (current) drug therapy
CPT/HCPCS: 0241U; 36415; 71046; 80048; 80076; 82728; 83615; 83735; 84145; 84484; 85025; 86140; 93005; 94644; 96365; 96366; 96375; 99284; 99285; J1100; J2920; J2930; J3475

== ENCOUNTER 2020-11-11 09:21 | Outpatient (REF) | payer MEDICARE, SELFPAY ==
--- NOTE | ~2020-11-11 | CT_ITS ---
EXAMINATION: CT CHEST WITHOUT CONTRAST CLINICAL INFORMATION: Pleural effusion COMPARISON: Previous chest CT January 2020 and chest x-ray most recent 11/07/2020 TECHNIQUE: Multidetector volumetric CT imaging of the chest was done. Axial MIP volume rendering provided. Sagittal and coronal reformatted images were obtained. This CT examination was performed using dose optimization techniques as appropriate, variously including the following: *Automated exposure control *Adjustment of mA and/or kV according to patient size (this includes techniques or standardized protocols for targeted exams where dose is matched to indication/reason for exam; i.e. extremities or head) *Use of iterative reconstruction technique DLP: 151 mGy-cm FINDINGS: LUNGS: There are small calcified and noncalcified pulmonary nodules that are stable. Largest pulmonary nodules are calcified and measure 5 mm in the right lower lobe axial image 367 series 5 and left upper lobe axial image 107 series 5. There are scattered areas of bronchial wall thickening and bronchial soft tissue opacification suggestive of airways disease. No endobronchial or endotracheal lesion is seen. MEDIASTINUM: There is evidence of atherosclerotic disease. There is mild coronary artery calcification. The heart does not appear enlarged. There is no pericardial effusion. The thoracic aorta is normal in caliber. There are no enlarged hilar or mediastinal lymph nodes. The mediastinum is otherwise normal. PLEURA: There is no pleural effusion. No pleural mass or thickening. AXILLA: No lymphadenopathy. UPPER ABDOMEN: Unremarkable. OSSEOUS STRUCTURES: There are mild degenerative changes of the thoracic spine curvature to the right. CT/CT chest wo con IMPRESSION: No pleural effusion. Calcified and noncalcified pulmonary nodules that are stable. Evidence of airways disease with areas of bronchial wall thickening and soft tissue opacification.
== END 2020-11-11 09:22 | disposition home or self-care (01) ==
LOC: HO.CT 09:21
PROVIDERS: PCP Internal Medicine; Visit Provider Internal Medicine Pulmonary Disease
DX: R91.8 Other nonspecific abnormal finding of lung field (principal)
CPT/HCPCS: 71250

== ENCOUNTER → 2020-12-16 09:04 | Outpatient (BNVA) | payer MEDICARE, SELFPAY | PROVIDERS: PCP Internal Medicine; Visit Provider Hospitalist | DX: J45.51 Severe persistent asthma with (acute) exacerbation (principal); J30.9 Allergic rhinitis, unspecified; F19.20 Other psychoactive substance dependence, uncomplicated; D72.19 Other eosinophilia | CPT/HCPCS: 96372; 99212; J2930 ==

== ENCOUNTER 2020-12-29 10:22 | Emergency (ER) | payer MEDICARE, SELFPAY ==
--- NOTE | ~2020-12-29 | XR_ITS ---
EXAMINATION: XR CHEST CLINICAL INFORMATION: These Cough COMPARISON: None TECHNIQUE: 2 views of the chest were obtained. FINDINGS: The lungs are hyperinflated and clear. The heart size and pulmonary vascularity is normal. Is mild dextroscoliosis dorsal spine. No lytic process. XR/XR chest 2V IMPRESSION: Unremarkable chest exam.
[2020-12-29 10:34] VITALS: BP 157/74; PULSE 98; RESP 16; TEMP 36.7; O2SAT 97; BMI 30.4
--- NOTE | 2020-12-29 10:50 | ED_ITS ---
HPI - General Adult General Chief complaint: Upper Respiratory Symptoms <ROBBIE Bautista - Last Filed: 12/29/20 12:37> Stated complaint: rash,sore throat <ROBBIE Bautista - Last Filed: 12/29/20 12:37> Time Seen by Provider: 12/29/20 10:40 <ROBBIE Bautista - Last Filed: 12/29/20 12:37> Source: patient <ROBBIE Bautista - Last Filed: 12/29/20 12:37> Mode of arrival: ambulatory <ROBBIE Bautista - Last Filed: 12/29/20 12:37> Limitations: no limitations <ROBBIE Bautista Last Filed: 12/29/20 12:37> History of Present Illness HPI narrative: 70 y/o female with history of steroid dependent COPD, asthma, allergic rhinitis, hypothyroidism, HLD who presents to the ED with 3 days of sore throat. She also has been coughing more than usual but it is dry. She denies shortness of breath, chest pain, fever or chills. She also complains of a circular, dry rash on her right ankle that is extremely itchy and bothersome, especially at night. It has been present for at least 1 month. <ROBBIE Bautista - Last Filed: 12/29/20 12:37> MD complaint: sore throat <ROBBIE Bautista - Last Filed: 12/29/20 12:37> Onset (ago): day(s) (3) <ROBBIE Bautista - Last Filed: 12/29/20 12:37> Location: mouth and lower extremity <ROBBIE Bautista - Last Filed: 12/29/20 12:37> Radiation: non-radiation <ROBBIE Bautista Last Filed: 12/29/20 12:37> Severity: moderate <ROBBIE Bautista Last Filed: 12/29/20 12:37> Quality: burning and aching <ROBBIE Bautista Last Filed: 12/29/20 12:37> Pain Consistency: constant <ROBBIE Bautista Last Filed: 12/29/20 12:37> Relieving factors: none <ROBBIE Bautista - Last Filed: 12/29/20 12:37> Exacerbating factors: eating <ROBBIE Bautista - Last Filed: 12/29/20 12:37> Associated symptoms: cough <ROBBIE Bautista - Last Filed: 12/29/20 12:37> Treatments prior to arrival: none <ROBBIE Bautista - Last Filed: 12/29/20 12:37> Related Data Home medications: Home Medications Medication Instructions Recorded Confirmed budesonide 0.5 mg/2 mL suspension 0.5 mg INHALATION BID 10/07/20 01/14/21 for nebulization buspirone 5 mg tablet 5 mg PO BID PRN 10/07/20 01/14/21 benzonatate 100 mg PO TID PRN 01/05/21 01/14/21 prednisone 5 mg PO DAILY 01/05/21 01/14/21 Previous Rx's Medication Instructions Recorded loratadine 10 mg tablet 10 mg PO DAILY #90 tab 09/22/20 omeprazole 20 mg capsule,delayed 20 mg PO DAILY 90 Days #90 cap 11/10/20 release hydrocortisone 1 % topical cream 1 appl TOPICAL BID PRN 30 Days 12/01/20 #28.35 g albuterol sulfate 1 inh INHALATION Q4-6H PRN #2 ea 01/06/21 apixaban [Eliquis] 5 mg PO BID #60 tab 01/06/21 diltiazem HCl [Cardizem CD] 120 mg PO DAILY #30 cap 01/06/21 dronedarone [Multaq] 400 mg PO BID #60 tab 01/06/21 levothyroxine 25 mcg tablet 25 mcg PO DAILY 90 Days #90 tab 01/08/21 rosuvastatin 5 mg tablet 5 mg PO DAILY 90 Days #90 tab 01/14/21 <ROBBIE Bautista - Last Filed: 12/29/20 12:37> Allergies/adverse reactions: Allergies Allergy/AdvReac Type Severity Reaction Status Date / Time acetaminophen Allergy Unknown vomitting Verified 01/14/21 12:43 [Tylenol-Codeine #3] atorvastatin [Lipitor] Allergy Unknown nausea Verified 01/14/21 12:43 levofloxacin [From LEVAQUIN] Allergy Unknown RASH SOB, Verified 01/14/21 12:43 DIZZYNESS codeine [CODEINE] AdvReac Unknown NAUSEA & Verified 01/14/21 12:43 VOMITING morphine [MORPHINE] AdvReac Unknown NAUSEA & Verified 01/14/21 12:43 VOMITING pravastatin AdvReac Unknown myalgia Verified 01/14/21 12:43 <ROBBIE Bautista - Last Filed: 12/29/20 12:37> Review of Systems Review of Systems: Constitutional: No Fever, No Chills ENT/Mouth: + sore throat, No Rhinorrhea, + Swallowing Difficulty Eyes: No Eye Pain, No Swelling, No Redness Cardiovascular: No Chest Pain, No SOB, No Orthopnea, No Edema Respiratory: + Cough, No Sputum, + Wheezing, No dyspnea Gastrointestinal: No Nausea, No Vomiting, No Diarrhea, No abdominal Pain Genitourinary: No Dysuria, No Urinary Frequency, No Hematuria Musculoskeletal: No joint pain, No Myalgias Skin: No Skin Lesions, + rash Neuro: No Weakness, No Numbness, No Dizziness, No Headache Psych: No Anxiety/Panic, No Depression Heme/Lymph: No Bruising, No Lymphadenopathy Endocrine: No Polyuria, No Polydipsia <ROBBIE Bautista - Last Filed: 12/29/20 12:37> [facility] Past Medical History Attestation statement: The following information was validated with the patient. <ROBBIE Bautista - Last Filed: 12/29/20 12:37> Medical History: Medical History Asthma Chronic allergic rhinitis Dyslipidemia Eosinophilia Hypothyroidism Paroxysmal atrial fibrillation Pneumonia Steroid dependent <ROBBIE Bautista - Last Filed: 12/29/20 12:37> Surgical History: Surgical History History of knee surgery History of nasal polypectomy History of shoulder surgery History of tubal ligation <ROBBIE Bautsita - Last Filed: 12/29/20 12:37> Family History Family History: Family History Father Medical history unknown Mother Medical history unknown <ROBBIE Bautista - Last Filed: 12/29/20 12:37> Social History Social History: Social History (Updated 01/14/21 @ 12:44 by Angelique Valentine MD) Household Members: None Housing: Apartment Alcohol intake: never Smoking Status: Former smoker Tobacco Type: Cigarette Advance Directives Date on File: 11/10/20 service: No Current occupational status: retired <ROBBIE Bautista - Last Filed: 12/29/20 12:37> Physical Exam Vital Signs: Vital Signs: Last Vital Signs Temp 98.1 F 12/29/20 10:34 Pulse 98 12/29/20 11:49 Resp 16 12/29/20 10:34 BP 157/74 H 12/29/20 10:34 Pulse Ox 97 12/29/20 10:34 Body Mass Index 30.4 Appearance: Alert. Oriented X3. No acute distress. Eyes: Pupils equal, round and reactive to light. ENT: Pharynx with mild generalized erythema, no tonsillar exudates, uvula midline, mucosa moist Neck: Normal inspection. Neck supple. CVS: Normal heart rate and rhythm. Pulses normal. Respiratory: No respiratory distress. Diffuse expiratory wheezes throughout with prolonged expiratory phase, speaking in full sentences. Abdomen: Soft and nontender. +BS x4 Skin: Skin warm and dry. Normal skin color. Normal skin turgor. right anterior ankle with 3cm dry, ertythematous patch with scaling. no warmth or tednerness. Extremities: No lower extremity edema. Neuro: Oriented X 3. No motor deficit. No sensory deficit. <ROBBIE Bautista - Last Filed: 12/29/20 12:37> Vital Signs: Last Vital Signs Temp 98.1 F 12/29/20 10:34 Pulse 98 12/29/20 11:49 Resp 16 12/29/20 10:34 BP 157/74 H 12/29/20 10:34 Pulse Ox 97 12/29/20 10:34 Body Mass Index 30.4 <Denver Coy MD - Last Filed: 01/16/21 13:26> Course Course Course Narrative: 70 yo female presenting with sore throat x3 days, dry cough and ankle rash x1 month. Vitals are stable and she is in no distress, however her lungs are diffusely wheezey. Concern for COPD exacerbation/asthma exacerbation, possible COVID-19. SpO2 97%. Will give dose of prednisone, anti-tussive and duoneb now and reassess. CXR and Viral PCR ordered. <ROBBIE Bautista - Last Filed: 12/29/20 12:37> I have reviewed the chart <Denver Coy MD - Last Filed: 01/16/21 13:26> Reevaluation(s) Reevaluation #1: CXR negative and Viral PCR negative. Will treat for COPD exacerabation with prednisone taper and antibiotics. Will give topical steroid for itching for her rash, consistent with nummular eczema. Her breath sounds are improved, she is stable for discharge. She has nebs at home which she uses regularly. <ROBBIE Bautista - Last Filed: 12/29/20 12:37> Medical Decision Making Lab Data Labs: Lab Results 12/29/20 Range/Units 10:57 Coronavirus (PCR) NEGATIVE (Negative) Influenza Type A (PCR) NEGATIVE (Negative) Influenza Type B (PCR) NEGATIVE (Negative) RSV RNA Qual (PCR) NEGATIVE (Negative) <ROBBIE Bautista - Last Filed: 12/29/20 12:37> Lab Results 12/29/20 Range/Units 10:57 Coronavirus (PCR) NEGATIVE (Negative) Influenza Type A (PCR) NEGATIVE (Negative) Influenza Type B (PCR) NEGATIVE (Negative) RSV RNA Qual (PCR) NEGATIVE (Negative) <Denver Coy MD - Last Filed: 01/16/21 13:26> Discharge Plan Discharge Clinical Impression: Nummular eczema, Asthma exacerbation in COPD <ROBBIE Bautista - Last Filed: 12/29/20 12:37> Patient Disposition: Home, Self-Care <ROBBIE Bautista - Last Filed: 12/29/20 12:37> Instructions: Eczema (ED), COPD (Chronic Obstructive Pulmonary Disease) (ED) <ROBBIE Bautista - Last Filed: 12/29/20 12:37> Additional Instructions: Your chest x-ray was negative. You were negative for COVID-19, Influenza, & RSV. Use your nebulizer two times per day. Take the prescribed antibiotic as directed. Take the prescribed prednisone taper starting tomorrow. When you are through with the taper, continue with your regular 5 mg per day. Use the topical ointment on your rash 2-3 times per day. Take benadryl 25 mg every 6 hours as needed for itching. Follow up with your doctor in 1 week. If you have worsening symptoms come back to the ER for further evaluation. <ROBBIE Bautista - Last Filed: 12/29/20 12:37> Prescriptions: No Action loratadine 10 mg tablet 10 mg PO DAILY Qty: 90 RF: 3 omeprazole 20 mg capsule,delayed release(DR/EC) 20 mg PO DAILY 90 Days Qty: 90 RF: 3 levothyroxine 25 mcg tablet 25 mcg PO DAILY 90 Days Qty: 90 RF: 1 benzonatate 100 mg Capsule 100 mg PO TID PRN (Reason: Cough) RF: 0 prednisone 5 mg Tablet 5 mg PO DAILY RF: 0 Eliquis 5 mg Tablet 5 mg PO BID Qty: 60 RF: 0 Multaq 400 mg Tablet 400 mg PO BID Qty: 60 RF: 0 diltiazem HCl [Cardizem CD] 120 mg capsule,extended release 24hr 120 mg PO DAILY Qty: 30 RF: 0 albuterol sulfate 90 mcg/actuation aerosol powdr breath activated 1 inh inhalation Q4-6H PRN (Reason: asthma) Qty: 2 RF: 0 hydrocortisone [Anti-Itch (HC)] 1 % cream 1 appl topical BID PRN (Reason: skin irritation) 30 Days Qty: 28.35 RF: 1 rosuvastatin 5 mg tablet 5 mg PO DAILY 90 Days Qty: 90 RF: 3 budesonide 0.5 mg/2 mL suspension for nebulization 0.5 mg inhalation BID RF: 0 buspirone 5 mg tablet 5 mg PO BID PRN (Reason: Anxiety) RF: 0 <ROBBIE Bautista - Last Filed: 12/29/20 12:37> Interventions: ED Discharge Assessment Last Done: 12/29/20 12:42 <ROBBIE Bautista - Last Filed: 12/29/20 12:37> Discharge Date/Time: 12/29/20 12:42 <ROBBIE Bautista - Last Filed: 12/29/20 12:37>
[2020-12-29] MEDS: predniSONE 20 MG TABLET 40 MG PO (11:05)
[2020-12-29] MEDS: Benzonatate 100 MG CAPSULE 200 MG PO (11:06)
[2020-12-29] MEDS: Triamcinolone Acet 0.1 % Oint 15 GM TUBE 1 APPL TOPICAL (11:24)
[2020-12-29] MEDS: Albuterol/Iprat 2.5/0.5MG 3 ML AMPUL.NEB INHALE (11:48)
[2020-12-29 11:49] VITALS: PULSE 98; O2SAT 98
[2020-12-29 12:04] LABS: Influenza A PCR NEGATIVE (Negative); Influenza B PCR NEGATIVE (Negative); Resp Syncy Virus RNA Qual PCR NEGATIVE (Negative); SARS COV2 PCR INHOUSE NEGATIVE (Negative)
== END 2020-12-29 12:42 | disposition home or self-care (01) ==
PROVIDERS: Physician Assistant; Emergency Provider Emergency Medicine; PCP Internal Medicine
DX: L30.0 Nummular dermatitis (principal); J44.9 Chronic obstructive pulmonary disease, unspecified; J02.9 Acute pharyngitis, unspecified; Z20.822 Contact with and (suspected) exposure to COVID-19; E78.5 Hyperlipidemia, unspecified; Z79.899 Other long term (current) drug therapy; Z79.52 Long term (current) use of systemic steroids
CPT/HCPCS: 0241U; 36415; 71046; 87071; 87880; 94640; 99283; 99284

== ENCOUNTER 2021-01-04 13:47 | Inpatient (IN) | payer MEDICARE, SELFPAY ==
[2021-01-04] VITALS (9 sets, daily range): BP systolic 104–146; BP diastolic 55–70; PULSE 80–188; RESP 14–22; TEMP 36.7; O2SAT 96–98; BMI 32.0
--- NOTE | 2021-01-04 | ECG_ITS ---
Test Reason : PALPITATIONS Blood Pressure : / mmHG Vent. Rate : 181 BPM Atrial Rate : 202 BPM P-R Int : 000 ms QRS Dur : 070 ms QT Int : 264 ms P-R-T Axes : 000 000 032 degrees QTc Int : 458 ms Atrial fibrillation with rapid ventricular response Minimal voltage criteria for LVH, may be normal variant Nonspecific ST and T wave abnormality Abnormal ECG When compared with ECG of 07-NOV-2020 20:55, Atrial fibrillation has replaced Sinus rhythm Vent. rate has increased BY 114 BPM Non-specific change in ST segment in Inferior leads ST now depressed in Anterolateral leads Nonspecific T wave abnormality now evident in Lateral leads Referred By: Generic ED Physician Electronically Signed By:Donte Bermudez
--- NOTE | ~2021-01-04 | XR_ITS ---
EXAMINATION: XR CHEST CLINICAL INFORMATION: Chest pain COMPARISON: 12/29/2020 TECHNIQUE: Frontal view of the chest was obtained. FINDINGS: Lungs are well expanded and clear. No consolidation, pneumothorax or pleural effusion. There is chronic thickening of bronchial ansari in this patient with history of asthma. Procedure observed small pulmonary nodules are better shown on CT imaging. Cardiac silhouette is normal in size. The hilar contours are normal. There is atherosclerotic calcification of the aortic arch. The visualized bones are intact. No pneumoperitoneum or other acute change. XR/XR chest 1V IMPRESSION: * The bronchial ansari appear to be chronically thickened in this patient with history of asthma. * No evidence of pneumonia. No acute pulmonary disease compared to 12/29/2020.
--- NOTE | 2021-01-04 14:02 | ECG_ITS ---
Test Reason : REPEAT Blood Pressure : / mmHG Vent. Rate : 078 BPM Atrial Rate : 078 BPM P-R Int : 148 ms QRS Dur : 084 ms QT Int : 354 ms P-R-T Axes : 039 -04 030 degrees QTc Int : 403 ms Normal sinus rhythm Minimal voltage criteria for LVH, may be normal variant Borderline ECG When compared with ECG of 04-JAN-2021 13:52, Sinus rhythm has replaced Atrial fibrillation Vent. rate has decreased BY 103 BPM Non-specific change in ST segment in Inferior leads ST no longer depressed in Anterolateral leads Nonspecific T wave abnormality no longer evident in Lateral leads Referred By: Roberto Carrasquillo Electronically Signed By:GIFTY NEAL MD
--- NOTE | 2021-01-04 14:07 | ED_ITS ---
HPI - Arrhythmia/Palpitations General Chief Complaint: Arrhythmia/Palpitations Stated Complaint: PALPALTATIONS Time Seen by Provider: 01/04/21 14:01 History of Present Illness HPI narrative: This is a very pleasant 70 years old of female presented to the emergency department with a chief complaint of palpitations. She was found to be on the rapid AFib in triage. She denies any chest pain any syncope any fever chills. She was seen in the emergency room a few days ago with asthma exa cerbation/COPD exacerbation nd sent home on Zithromax and prednisone complaint: rapid heart beat, heart racing and palpitations Onset (ago): hour(s) (3) Duration: constant Severity: moderate Context: occurred during rest Related Data Home Medications Medication Instructions Recorded Confirmed aripiprazole 5 mg tablet 5 mg PO DAILY 10/07/20 12/16/20 budesonide 0.5 mg/2 mL suspension 0.5 mg INHALATION BID 10/07/20 12/01/20 for nebulization buspirone 5 mg tablet 5 mg PO BID 10/07/20 12/16/20 escitalopram oxalate 10 mg tablet 10 mg PO DAILY 10/07/20 12/16/20 fluticasone 250 mcg-salmeterol 50 1 inh INHALATION BID 10/07/20 12/16/20 mcg/dose blistr powdr for inhalation mepolizumab 100 mg/mL subcutaneous 100 mg SUBCUT Q4W 10/07/20 12/16/20 syringe montelukast 10 mg tablet 10 mg PO BEDTIME 10/07/20 12/16/20 roflumilast 500 mcg tablet 500 mcg PO DAILY 10/07/20 12/16/20 furosemide 1 tab PO DAILY 11/07/20 12/16/20 ipratropium 0.5 mg-albuterol 3 mg ml INHALATION Q6H PRN 12/16/20 12/16/20 (2.5 mg base)/3 mL nebulization soln Previous Rx's Medication Instructions Recorded trazodone 50 mg tablet 50 mg PO BEDTIME PRN 90 Days #90 08/30/20 tab loratadine 10 mg tablet 10 mg PO DAILY #90 tab 09/22/20 prednisone 5 mg tablet 10 mg PO DAILY 30 Days #60 tab 10/07/20 prednisone 40 mg PO DAILY #8 tab 11/09/20 omeprazole 20 mg capsule,delayed 20 mg PO DAILY 90 Days #90 cap 11/10/20 release nystatin 500,000 unit tablet 500,000 unit PO TID 10 Days #30 tab 11/11/20 fluocinolone acetonide oil 0.01 % 5 drp OTIC (EAR) LEFT BID 7 Days 12/01/20 ear drops #20 ml hydrocortisone 1 % topical cream 1 appl TOPICAL BID PRN 30 Days 12/01/20 #28.35 g azithromycin [Zithromax Z-[place]] See Rx Instructions .ROUTE 12/29/20 .COMPLEX #6 tab prednisone 10 mg PO PER PKG DIR #48 ea 12/29/20 guaifenesin 100 mg/5 mL oral liquid 100 mg PO Q6H PRN #30 ml 01/01/21 rosuvastatin 10 mg tablet 10 mg PO DAILY #90 tab 01/03/21 Allergies Allergy/AdvReac Type Severity Reaction Status Date / Time acetaminophen Allergy Unknown vomitting Verified 12/16/20 09:56 [Tylenol-Codeine #3] atorvastatin [Lipitor] Allergy Unknown nausea Verified 12/16/20 09:56 levofloxacin [From LEVAQUIN] Allergy Unknown RASH SOB, Verified 12/16/20 09:56 DIZZYNESS codeine [CODEINE] AdvReac Unknown NAUSEA & Verified 12/16/20 09:56 VOMITING morphine [MORPHINE] AdvReac Unknown NAUSEA & Verified 12/16/20 09:56 VOMITING pravastatin AdvReac Unknown myalgia Verified 12/16/20 09:56 Review of Systems Review of Systems: Yes all other systems are reviewed and are negative Cardiovascular: Cardiovascular: Reports no additional cardiovascular complaints Gastrointestinal: Gastrointestinal: Denies abdominal pain, Denies change in stool character and Denies coffee ground emesis Neurologic: Reports system reviewed and no additional complaints, except as documented PMFSH Past Medical History Medical History Asthma Chronic allergic rhinitis Dyslipidemia Eosinophilia Hypothyroidism Pneumonia Steroid dependent Surgical History History of knee surgery History of nasal polypectomy History of shoulder surgery History of tubal ligation Family History Family History Father Medical history unknown Mother Medical history unknown Social History Social History Household Members: None Housing: Apartment Alcohol intake: never Smoking Status: Never smoker Advance Directives: Yes Advance Directives on File: Yes Advance Directives Date on File: 11/10/20 service: No Current occupational status: disabled Physical Exam Vital Signs: Vital Signs: Last Vital Signs Temp 98.0 F 01/04/21 14:06 Pulse 170 H 01/04/21 15:17 Resp 22 H 01/04/21 15:17 BP 146/70 H 01/04/21 15:17 Pulse Ox 97 01/04/21 15:17 Body Mass Index 32.0 Const: Other: She is not in distress she appear comfortable Orientation/consciousness: oriented to person, oriented to place, oriented to time and patient oriented x3 HENMT: Head: Yes normal to inspection Eyes: General: appearance normal, both eyes and all related structures Neck: Neck: Yes normal visual inspection Chest: Chest palpation & inspection: normal inspection of the chest Resp: Auscultation: clear to auscultation bilaterally Cardio: Rate: tachycardic Rhythm: abnormal rhythm GI: Inspection: Yes normal to inspection Palpation (GI): Soft to palpation, not firm, nontender and no guarding Skin: General skin exam: no rashes or lesions noted, elasticity normal and turgor normal Neuro: General: oriented to person, oriented to place, oriented to time and patient oriented x3 Course Reevaluation(s) Reevaluation #1: improving,on cardizem drip,spoke hospitalist Isabel she accept the patient Time: 15:21 [facility] - Arrhythmia/Palpitations Lab Data Result diagrams: 01/04/21 14:17 01/04/21 14:17 Labs: Lab Results 01/04/21 01/04/21 01/04/21 Range/Units 14:17 14:17 14:17 WBC 10.4 (4.8-10.8) X10*3/uL RBC 5.20 (4.20-5.50) X10*6/uL Hgb 13.6 (12.0-16.0) g/dl Hct 45.1 (37-47) % MCV 86.7 (80-98) fL MCH 26.2 L (27.0-33.0) pg MCHC 30.2 L (31.0-35.0) g/dl RDW 14.7 (11.0-16.0) % Plt Count 484 H D (160-400) X10*3/uL MPV 9.5 (9.4-12.3) fL Immature Gran % (Auto) 0.5 H (0.0-0.4) % Neut % (Auto) 55.1 (45-73) % Lymph % (Auto) 33.3 (20-40) % [place] % (Auto) 6.6 (2-11) % Eos % (Auto) 3.4 (0-4) % Baso % (Auto) 1.1 (0-2) % Lymph # (Auto) 3.5 (1.2-4.9) X10*3/uL [place] # (Auto) 0.7 (0.1-1.2) X10*3/uL Eos # (Auto) 0.4 (0.0-0.4) X10*3/uL Baso # (Auto) 0.1 (0.0-0.2) X10*3/uL Abs Immat Gran (auto) 0.05 H (0.00-0.03) X10*3/uL Absolute Neuts (auto) 5.7 (2.0-8.3) X10*3/uL Absolute Nucleated RBC 0.000 (0.0-0.012) X10*3/uL Nucleated RBC % (auto) 0.0 (0.0-0.2) /100WBC PT 11.9 (10.8-13.0) SEC INR 1.0 (0.9-1.1) Sodium 144 (135-145) mmol/L Potassium 4.4 (3.3-5.1) mmol/L Chloride 103 (96-108) mmol/L Carbon Dioxide 28 (22-29) mmol/L Anion Gap 17 (12-20) BUN 26 H (9-16) mg/dL Creatinine 1.44 H (0.5-1.4) mg/dL Estim Creat Clear Calc TNP Estimated GFR 36 Random Glucose 108 (60-115) mg/dL Calcium 9.6 (8.4-10.2) mg/dL Total Bilirubin 0.4 (0.0-1.0) mg/dL AST 14 (5-31) U/L ALT 12 (0-31) U/L Alkaline Phosphatase 76 (39-117) U/L Troponin I High Sens (<3.5-17.0) ng/L Total Protein 7.6 (6.5-8.0) g/dL Albumin 4.7 (3.5-5.0) g/dL TSH 7.57 H (0.32-4.0) uIU/mL 01/04/21 Range/Units 14:17 WBC (4.8-10.8) X10*3/uL RBC (4.20-5.50) X10*6/uL Hgb (12.0-16.0) g/dl Hct (37-47) % MCV (80-98) fL MCH (27.0-33.0) pg MCHC (31.0-35.0) g/dl RDW (11.0-16.0) % Plt Count (160-400) X10*3/uL MPV (9.4-12.3) fL Immature Gran % (Auto) (0.0-0.4) % Neut % (Auto) (45-73) % Lymph % (Auto) (20-40) % [place] % (Auto) (2-11) % Eos % (Auto) (0-4) % Baso % (Auto) (0-2) % Lymph # (Auto) (1.2-4.9) X10*3/uL [place] # (Auto) (0.1-1.2) X10*3/uL Eos # (Auto) (0.0-0.4) X10*3/uL Baso # (Auto) (0.0-0.2) X10*3/uL Abs Immat Gran (auto) (0.00-0.03) X10*3/uL Absolute Neuts (auto) (2.0-8.3) X10*3/uL Absolute Nucleated RBC (0.0-0.012) X10*3/uL Nucleated RBC % (auto) (0.0-0.2) /100WBC PT (10.8-13.0) SEC INR (0.9-1.1) Sodium (135-145) mmol/L Potassium (3.3-5.1) mmol/L Chloride (96-108) mmol/L Carbon Dioxide (22-29) mmol/L Anion Gap (12-20) BUN (9-16) mg/dL Creatinine (0.5-1.4) mg/dL Estim Creat Clear Calc Estimated GFR Random Glucose (60-115) mg/dL Calcium (8.4-10.2) mg/dL Total Bilirubin (0.0-1.0) mg/dL AST (5-31) U/L ALT (0-31) U/L Alkaline Phosphatase (39-117) U/L Troponin I High Sens 99.8 H D (<3.5-17.0) ng/L Total Protein (6.5-8.0) g/dL Albumin (3.5-5.0) g/dL TSH (0.32-4.0) uIU/mL ECG Data Attestation: I personally reviewed and interpreted this ECG as follows: Pacemaker model: EKG was reviewed by me she is in rapid AFib with ventricular response of170 Critical Care Time Critical Care Time Critical Care Time: Yes Total Critical Care Time: 30 Attestation: IV cardizem and titration. Discharge Plan Discharge Clinical Impression: Atrial fibrillation with rapid ventricular response Patient Disposition: Admitted As Inpatient
[2021-01-04] MEDS: dilTIAZem HCL 50 MG/10 ML VIAL 20 MG IVPUSH (14:11)
[2021-01-04 14:26] LABS: MANUAL DIFF FLAG NO
[2021-01-04] MEDS: dilTIAZem HCL 125 MG in 0.9 % Sodium Chloride 100 ML 10 MG IVCONT (14:26)
[2021-01-04 14:29] LABS: Basophils Absolute Auto 0.1 X10*3/uL (0.0-0.2); Basophils Percent Auto 1.1 % (0-2); Eosinophils Absolute Auto 0.4 X10*3/uL (0.0-0.4); Eosinophils Percent Auto 3.4 % (0-4); Hematocrit 45.1 % (37-47); Hemoglobin 13.6 g/dl (12.0-16.0); Imm Gran Abs Auto 0.05 X10*3/uL (0.00-0.03); Imm Gran Pct Auto 0.5 % (0.0-0.4); Lymphocytes Absolute Auto 3.5 X10*3/uL (1.2-4.9); Lymphocytes Percent Auto 33.3 % (20-40); Mean Corpuscular HGB Conc 30.2 g/dl (31.0-35.0); Mean Corpuscular Hemoglobin 26.2 pg (27.0-33.0); Mean Corpuscular Volume 86.7 fL (80-98); Mean Platelet Volume 9.5 fL (9.4-12.3); Monocytes Absolute Auto 0.7 X10*3/uL (0.1-1.2); Monocytes Percent Auto 6.6 % (2-11); Neutrophils Absolute Auto 5.7 X10*3/uL (2.0-8.3); Neutrophils Percent Auto 55.1 % (45-73); Platelet Count 484 X10*3/uL (160-400); Red Cell Distribution Width 14.7 % (11.0-16.0); White Blood Count 10.4 X10*3/uL (4.8-10.8)
[2021-01-04 14:35] LABS: Prothrombin Time 11.9 SEC (10.8-13.0)
[2021-01-04 14:51] LABS: Alanine Aminotransferase 12 U/L (0-31); Albumin Level 4.7 g/dL (3.5-5.0); Alkaline Phosphatase 76 U/L (39-117); Anion Gap 17 (12-20); Aspartate Amino Transferase 14 U/L (5-31); Bilirubin Total 0.4 mg/dL (0.0-1.0); Blood Urea Nitrogen 26 mg/dL (9-16); Calcium 9.6 mg/dL (8.4-10.2); Carbon Dioxide 28 mmol/L (22-29); Chloride 103 mmol/L (96-108); Estimated Glomerular Filt Rate 36; Glucose Random 108 mg/dL (60-115); Potassium 4.4 mmol/L (3.3-5.1); Sodium 144 mmol/L (135-145); Total Protein 7.6 g/dL (6.5-8.0)
[2021-01-04 14:56] LABS: Troponin-I High Sensitivity 99.8 ng/L (<3.5-17.0)
[2021-01-04 15:13] LABS: Thyroid Stimulating Hormone 7.57 uIU/mL (0.32-4.0)
--- NOTE | 2021-01-04 15:23 | P.HPHOSP_ITS ---
History of Present Illness Date of Service: 01/04/21 Chief Complaint: Palpitations 70 year old women presenting with palpitations that started this morning at 04:00. she reported a walker up. She denied any chest pain, dizziness, lightheadedness, shortness of breath. She did report that she can feel palpitations. She denied any history palpitations like this in the past. She was recently discharged from [facility] and treated for COPD exacerbation / eosinophilic asthma exacerbation. She denied any new medications other than antibiotic. She is on chronic steroids. She denied fever, chills, nausea, vomiting, diarrhea. She does report that she does not take all of her medications and her blood pressure initially was noted to be high but did come down significantly. Patient was on the max dose of IV Cardizem drip and was given an initial dose of digoxin. Heart rate was as high as 180. she will be admitted for further management treatment of acute onset atrial fibrillation with rapid ventricular response. Review of Systems Review of Systems: Denies any recent fever chills or decrease in appetite respiratory denies any shortness of breath coverage production cardiovascularsee HPI gastrointestinal denies any dysphagia abdominal pain nausea vomiting or diarrhea genitourinary denies any dysuria frequency or hematuria musculoskeletal denies any joint pain or swelling neuropsych denies any weakness or seizures all other systems reviewed are negative FORMERLY [facility] Medical History Asthma Chronic allergic rhinitis Dyslipidemia Eosinophilia Hypothyroidism Pneumonia Steroid dependent Family History Father Medical history unknown Mother Medical history unknown Surgical History History of knee surgery History of nasal polypectomy History of shoulder surgery History of tubal ligation Social History Household Members: None Housing: Apartment Alcohol intake: never Smoking Status: Never smoker Advance Directives: Yes Advance Directives on File: Yes Advance Directives Date on File: 11/10/20 service: No Current occupational status: retired Meds Allergies Allergy/AdvReac Type Severity Reaction Status Date / Time acetaminophen Allergy Unknown vomitting Verified 12/16/20 09:56 [Tylenol-Codeine #3] atorvastatin [Lipitor] Allergy Unknown nausea Verified 12/16/20 09:56 levofloxacin [From LEVAQUIN] Allergy Unknown RASH SOB, Verified 12/16/20 09:56 DIZZYNESS codeine [CODEINE] AdvReac Unknown NAUSEA & Verified 12/16/20 09:56 VOMITING morphine [MORPHINE] AdvReac Unknown NAUSEA & Verified 12/16/20 09:56 VOMITING pravastatin AdvReac Unknown myalgia Verified 12/16/20 09:56 Active Medications: Current Medications Generic Name Dose Route Start Last Admin Trade Name Freq PRN Reason Stop Dose Admin Diltiazem HCl 125 mg/ Sodium 125 mls @ 0 mls/hr 01/04/21 14:15 01/04/21 15:20 Chloride IVCONT 15 mg/hr .Q0M THANH 15 mls/hr Titration Protocol Per Protocol Sodium Chloride 1,000 mls @ 999 mls/hr 01/04/21 15:30 Ns IVCONT 01/04/21 16:30 .Q1H1M [facility] Pharmacy Consult 1 each 01/04/21 15:16 Consult Rx Perform Med Rec MISCELLANE ONCE PRN Consult order Home Medications Medication Instructions Recorded Confirmed Last Taken Type budesonide 0.5 mg/2 mL suspension 0.5 mg INHALATION BID 10/07/20 01/05/21 Unknown History for nebulization buspirone 5 mg tablet 5 mg PO BID PRN 10/07/20 01/04/21 Unknown History benzonatate 100 mg PO TID PRN 01/05/21 01/05/21 Unknown History prednisone 5 mg PO DAILY 01/05/21 01/05/21 Unknown History Physical Exam Vital Signs and Narrative: Vital Signs: Last Vital Signs Temp 98.0 F 01/04/21 14:06 Pulse 170 H 01/04/21 15:17 Resp 22 H 01/04/21 15:17 BP 146/70 H 01/04/21 15:17 Pulse Ox 97 01/04/21 15:17 Body Mass Index 32.0 Appearing in no acute distress head is normocephalic atraumatic eyes pupils are PERRLA sclera is anicteric mouth throat mucous membranes are intact and moist neck is supple no lymphadenopathy, no JVD noted lung sounds are clear to auscultation heart IRIR positive bowel sounds, abdomen is soft, nontender neuro patient is alert x3, no focal deficits Results Labs CBC and Chem 7: 01/04/21 14:17 01/04/21 14:17 Labs: Laboratory Results - last 24 hr 01/04/21 01/04/21 01/04/21 14:17 14:17 14:17 MCV 86.7 MCH 26.2 L MCHC 30.2 L RDW 14.7 Plt Count 484 H D MPV 9.5 Immature Gran % (Auto) 0.5 H Neut % (Auto) 55.1 Lymph % (Auto) 33.3 [place] % (Auto) 6.6 Eos % (Auto) 3.4 Baso % (Auto) 1.1 Lymph # (Auto) 3.5 [place] # (Auto) 0.7 Eos # (Auto) 0.4 Baso # (Auto) 0.1 Abs Immat Gran (auto) 0.05 H Absolute Neuts (auto) 5.7 Absolute Nucleated RBC 0.000 Nucleated RBC % (auto) 0.0 PT 11.9 INR 1.0 Anion Gap 17 Estim Creat Clear Calc TNP Estimated GFR 36 Random Glucose 108 Calcium 9.6 Total Bilirubin 0.4 AST 14 ALT 12 Alkaline Phosphatase 76 Troponin I High Sens Total Protein 7.6 Albumin 4.7 TSH 7.57 H 01/04/21 14:17 MCV MCH MCHC RDW Plt Count MPV Immature Gran % (Auto) Neut % (Auto) Lymph % (Auto) [place] % (Auto) Eos % (Auto) Baso % (Auto) Lymph # (Auto) [place] # (Auto) Eos # (Auto) Baso # (Auto) Abs Immat Gran (auto) Absolute Neuts (auto) Absolute Nucleated RBC Nucleated RBC % (auto) PT INR Anion Gap Estim Creat Clear Calc Estimated GFR Random Glucose Calcium Total Bilirubin AST ALT Alkaline Phosphatase Troponin I High Sens 99.8 H D Total Protein Albumin TSH Imaging Radiologist's Impressions: Impressions Chest X-Ray 01/04/21 14:02 IMPRESSION: * The bronchial ansari appear to be chronically thickened in this patient with history of asthma. * No evidence of pneumonia. No acute pulmonary disease compared to 12/29/2020. Assessment and Plan (1) Atrial fibrillation with rapid ventricular response: Status: Acute 70 year old women admitted with new onset atrial fibrillation with rapid ventricular. She mentioned that she is not taking all of her medications, but is taking medications for her depression and lung disease. New onset atrial fibrillation with rapid ventricular response. Possibly from u ncontrolled blood pressure. -cardizem drip -echocardiogram -cardiology consult -Start Cardizem 30mg Q6h after weaned from IV cardizem -Dig load YOLA. ? Lasix use. Hold. -IV fluids -trend, if no improvement seen consider nephrology consultation Hypotension. Secondary too afib rvr. -IV fluids Elevated troponin. Secondary to afib rvr. No chest pain -trend COPD/allergic asthma. No exacerbation -nebs as needed -Chronic steroid use, continue GERD. -PPI Hyperlipidemia -statin Hypothyroidism. Will not start acutely. She is not currently taking it and it i snot on the pharmacy medication list. -Start Levothyroxine as outpatient. DVT prophylaxis Romero Attending: Dr. Watson
[2021-01-04] MEDS: 0.9 % Sodium Chloride 1,000 ML 999 ML IVCONT (15:24)
--- NOTE | 2021-01-04 16:26 | PM.EVENT ---
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 without any associated shortness of breath chest pain, patient denies history of alcohol abuse nonsmoker no prior similar episodes in the ER patient was noted to be in AFib with RVR patient treated with 20 mg of IV Cardizem and placed on IV Cardizem drip currently 15 mg per hour patient heart rate remained remains fluctuating between 120-160 range blood pressure is soft On examination patient awake alert in no distress Lungs clear to auscultation Heart irregularly irregular no murmur noted Abdomen soft nontender Extremities without edema Neuro nonfocal Skin no rash Assessment and plan New onset atrial fibrillation with RVR patient will be admitted to telemetry unit will continue IV Cardizem drip will give digoxin loading dose will place patient on by mouth Cardizem due to chads vascular score of 3 patient will be placed on Eliquis, will rule out acute coronary syndrome with serial troponins, history of uncontrolled hypertension likely contributing, check echocardiogram and obtain cardiology eval. Asthma/COPD no acute exacerbation noted continue home inhalers DVT prophylaxis will start patient on Eliquis
[2021-01-04] MEDS: Digoxin 0.25 MG TABLET PO (16:34)
[2021-01-04 18:02] LABS: Troponin-I High Sensitivity 73.8 ng/L (<3.5-17.0)
[2021-01-04] MEDS: dilTIAZem HCL 30 MG TABLET PO (20:49)
[2021-01-04] MEDS: Apixaban 5 MG TABLET PO (20:50)
[2021-01-05] VITALS (8 sets, daily range): BP systolic 133–160; BP diastolic 40–74; PULSE 76–96; RESP 16–22; TEMP 36.6–36.8; O2SAT 97–98
[2021-01-05] MEDS: dilTIAZem HCL 30 MG TABLET PO (08:43)
[2021-01-05] MEDS: Apixaban 5 MG TABLET PO ×2 (08:43→22:24)
[2021-01-05] MEDS: 0.9 % Sodium Chloride Flush 3 ML SYRINGE IVFLUSH ×2 (08:44→16:37)
[2021-01-05 09:21] LABS: COVID-19 Test Negative (Negative); IDNOW Serial# 9DD0AD1C
--- NOTE | 2021-01-05 12:00 | CA_ITS ---
Transthoracic Echocardiogram Patient (Last, First, Middle): Sona Pinon, Gender: Female Date of : 1950 Age: 70 Procedure Date: 01/05/2021 Procedure Type: Transthoracic Echocardiogram Location: ER Height: 160.02 cm Weight: 78.02 kg BSA: 1.81 m2 Heart Rate: bpm BP: 160 / 70 mmHg Physical Integration Practitioner: RIAZ Shah MD: Jake Watson MD Mountain Bike Guide: Alexandro Cortés MD Symptoms: atrial fibrillation Study Quality: Good ECG Rhythm: Sinus Conclusions: - 1. Normal LV systolic function with grade 1 diastolic dysfunction 2. Fibrocalcific aortic valve changes noted and mitral annular calcification noted with normal cardiac valvular Doppler 3. Normal RV systolic pressure 4. No pericardial effusion Findings Left Ventricle Normal left ventricular size, thickness, and systolic function. The visually estimated ejection fraction is between 60-65%. Spectral Doppler is indicative of an impaired relaxation filling pattern. E/E prime ratio is <8, consistent with normal filling pressures. Evidence suggests grade I (mild) diastolic dysfunction. Right Ventricle Normal right ventricular cavity size and systolic function. Atria The left atrium is normal in size. There is no evidence of interatrial shunt. The right atrium is normal in size. Aortic Valve There is mild calcification of the aortic valve. There is mild thickening of the aortic valve. There is no aortic valve stenosis. There is no aortic valve regurgitation. Mitral Valve There is mild anterior and moderate posterior mitral leaflet thickening. There is moderate mitral annular calcification. There is trace mitral valve regurgitation. There is no mitral valve stenosis. Pulmonic Valve The pulmonic valve was not well visualized. Tricuspid Valve Likely normal tricuspid valve structure and function. There is mild tricuspid valve regurgitation. The right ventricular systolic pressure is normal. The right ventricular systolic pressure is 27 mmHg. Normal right atrial pressure. There is no evidence of pulmonary hypertension. Great Vessels All visible segments of the aorta are normal in size. The pulmonary artery was not well visualized. Venous The inferior vena cava is normal in size and collapses greater than 50% with inspiration. Pericardium/Pleural There is no evidence of pericardial effusion. Prior Study Comparison No significant change compared to prior study dated: 02/08/2020. Measurements 2D Linear Measurements IVSd: 0.86 0.6-0.9/0.6-1.0 cm LVIDd: 4.07 3.9-5.3/4.2-5.9 cm LVIDd Index: 2.25 2.4-3.2/2.2-3.1 cm/m2 LVIDs: 2.75 2.0-3.6 cm LVPWd: 0.85 0.7-1.1 cm Ao Root: 2.90 2.1-3.5 cm LA Diam: 3.50 2.7-3.8/3.0-4.0 cm LAIDs Index: 1.93 1.5-2.3 cm/m2 LV Mass: 130.81 67-162/88-224 g LV Mass Index: 72.27 43-95/49-115 g/m2 LVOT Diam: 2.00 3.0+(-)1.3 cm Mitral Valve MV Pk E: 0.73 MV PK A: 1.07 MV Decel Time: 225.00 E/A: 0.70 E'Lateral: 10.30 E'Medial: 6.96 E/E' Med: 10.50 E/E' Lat: 7.10 PHT: 66.00 MVA PHT: 3.33 Decel Lander: 3.24 Aortic Valve AoV Pk William: 1.41 AoV Mn William: 1.03 AoV VTI: 0.30 AoV Pk Grad: 8.00 Aov Mn Grad: 5.00 JERRY Cont.VTI: 2.65 LVOT LVOT Pk William: 1.24 LVOT Mn William: 0.90 LVOT VTI: 0.25 LVOT Pk Grad: 6.00 LVOT Mn Grad: 4.00 LVOT Diam: 2.00 LVOT Area: 3.14 Diastolic Function MV Pk E: 0.73 MV Pk A: 1.07 E/A: 0.70 E'Medial: 6.96 E/E' Med: 10.50 E' Laterial: 10.30 E/E' Lat: 7.10 Tricuspid Valve TR Pk William: 2.46 TR Pk Grad: 24.00 RA Press: 3.00 RVSP: 27.00 Great Vessels Aorta Ao Root-2D: 2.90 2.0-3.7 cm Ao Asc: 3.00 2.1-3.4 cm Ao Arch: 2.30 Updated in Other Vendor System with Status of Final Alexandro Cortés MD electronically signed on 01/05/2021 4:20:47 PM with status of Final
--- NOTE | 2021-01-05 12:53 | MHC.CM.PN ---
CM MET WITH PT WITH THE ASSISTANCE OF A VETERINARY MANAGER. PT REPORTS SHE LIVES ALONE AND IS INDEPENDENT WITH ALL CARE AND MOBILITY. PT DOES HAVE [facility] BUT REPORTS SHE DOES NOT HAVE ANY SERVICES IN THE HOME DUE TO COVID-19 CONCERNS. PT ALSO DENIES USING ANY DME. PT HAS A HCP ON FILE AND CONFIRMS THE PCP LISTED, SIMEON GOVEA. IS ACCURATE. IMM DELIVERED VERBALLY, PT INDICATED UNDERSTANDING. COPY PROVIDED. CURRENT DC PLAN IS HOME WITH NO SERVICES PT REQUESTS TO BE TRANSPORTED VIA [facility].
--- NOTE | 2021-01-05 13:32 | P.PNIM_ITS ---
Subjective Subjective Date of Service: 01/05/21 Interval History: Patient feeling better this a.m. palpitations resolved, is concerned about her heart, she converted into normal sinus rhythm overnight. No acute issues overnight. General no headache, no dizziness no fever chills. CVS no chest pain, no palpitation. Respiratory no cough, no sob. Gastrointestinal no nausea, no vomiting, no abdominal pain Physical Exam Vital Signs: Vital Signs: Last Vital Signs Temp 98.3 F 01/05/21 04:48 Pulse 76 01/05/21 12:02 Resp 16 01/05/21 12:02 BP 136/65 01/05/21 12:02 Pulse Ox 98 01/05/21 12:02 Body Mass Index 32.0 General patient resting comfortably ,no acute distress. Neck is supple no JVD. CVS regular rate rhythm, Respiratory lungs clear to auscultation, no respiratory distress, no wheeze, no rhonchi. Gastrointestinal abdomen soft, nontender, bowel sounds audible, no guarding , no rigidity. Extremities no clubbing cyanosis or edema. Neuro nonfocal , speech clear. Skin no rash Objective Data Current Medications Generic Name Dose Route Start Last Admin Trade Name Freq PRN Reason Stop Dose Admin Apixaban 5 mg 01/04/21 21:00 01/05/21 08:43 Apixaban 5 Mg Tablet PO 5 mg BID [facility] Administration Aripiprazole 5 mg 01/05/21 09:00 01/05/21 08:52 Aripiprazole 5 Mg Tablet PO Not Given DAILY [facility] Buspirone HCl 5 mg 01/05/21 09:00 01/05/21 08:52 Buspirone Hcl 5 Mg Tablet PO Not Given BID [facility] Diltiazem HCl 60 mg 01/05/21 13:00 Diltiazem Hcl 60 Mg Tablet PO QID [facility] Protocol Escitalopram Oxalate 10 mg 01/05/21 09:00 01/05/21 08:52 Escitalopram Oxalate 10 Mg Tablet PO Not Given DAILY [facility] Pharmacy Consult 1 each 01/04/21 15:16 Consult Rx Perform Med Rec MISCELLANE ONCE PRN Consult order Sodium Chloride 3 ml 01/05/21 08:00 01/05/21 08:44 0.9 % Sodium Chloride Flush 3 Ml Syringe IVFLUSH 3 ml QSHIFT [facility] Administration Labs CBC & Chem 7: 01/04/21 14:17 01/04/21 14:17 Assessment and Plan (1) Atrial fibrillation with rapid ventricular response: Status: Acute (2) Dyslipidemia: Status: Acute (3) Hypothyroidism: Status: Acute (4) Chronic allergic rhinitis: Status: Acute (5) Asthma: Status: Acute Assessment and Plan: 70 year old women admitted with new onset atrial fibrillation with rapid ventricular. She mentioned that she is not taking all of her medications, but is taking medications for her depression and lung disease. New onset atrial fibrillation with rapid ventricular response. Patient treated with IV Cardizem 20 mg, IV digoxin 0.25 and placed on IV Cardizem drip subsequently patient converted to normal sinus rhythm and remains in normal sinus rhythm this morning patient denies any chest pain, troponin elevated but flat likely due to tachycardia patient had no chest pain, obtain echocardiogram and cardiology consult, IV Cardizem drip discontinued patient placed on Cardizem 60 mg q.6 hours loan vascular score of 3 patient has been started on Eliquis 5mg bid. Likely uncontrolled hypertension contributing to symptoms. YOLA. Status post IV fluid follow BMP Elevated troponin. Secondary to afib rvr. No chest pain, follow echo COPD/allergic asthma. No exacerbation will resume home inhaler Hypothyroidism. Patient not taking levothyroxine that was prescribed by PCP, resume to start medication upon discharge.tsh 7.57 DVT prophylaxis Eliquis
[2021-01-05] MEDS: Omeprazole 20 MG CAPSULE.DR PO (14:51)
[2021-01-05] MEDS: dilTIAZem HCL 60 MG TABLET PO ×3 (14:51→22:23)
--- NOTE | 2021-01-05 16:54 | P.CONCA_ITS ---
History of Present Illness History of Present Illness Date of Service: 01/05/21 Requesting physician: Jake Watson Consult reason: atrial fibrillation Chief complaint: Afib with RVR Narrative: Thank you for inviting us in consult on Sona for atrial fibrillation. She is a pleasant 70-year-old female prior cyst history of hypertension, hyperlipidemia, COPD who presents to the hospital with sudden onset palpitation that began at 04:00 yesterday. She come more short of breath, no chest discomfort or lightheadedness or syncope. When she came to the hospital she was noted to be AFib with very rapid ventricular response, heart rate going to 180 beats per minute. She has slightly lower blood pressure. She was noted to have acute kidney injury and slightly elevated troponin. She was given IV Cardizem and subsequently she converted to sinus rhythm. Remains in sinus rhythm and feels a lot better. Her breathing is improved. Denies any chest discomfort. Echocardiogram done showed normal LV systolic function with normal biatrial chamber size. She says she has never had symptoms like this before and is very concerned about these symptoms. Her blood pressures are not elevated. Her subsequent EKG showed sinus rhythm with no acute ST T wave changes. Review of Systems Constitutional: Constitutional: Denies chills, Reports daytime sleepiness, Denies fatigue and Denies fever(s) Cardiovascular: Cardiovascular: Denies chest pain, Reports rapid heart rate, Denies lightheadedness, Denies Loss of Consciousness, Reports palpitations and Reports dyspnea Respiratory: Respiratory: Reports no additional respiratory complaints and Reports dyspnea Gastrointestinal: Gastrointestinal: Reports no additional gastrointestinal complaints Genitourinary: Genitourinary: Reports no additional female genitourinary complaints Musculoskeletal: Musculoskeletal: Reports no additional musculoskeletal complaints Neurologic: Reports system reviewed and no additional complaints, except as documented Psychiatric: Psychiatric: Reports no additional psychiatric complaints Endocrine: Endocrine: Reports no additional endocrine complaints, Denies fatigue and Reports palpitations Hematologic/Lymphatic: Hematologic/Lymphatic: Reports no additional hematologic/lymphatic complaints [facility] Past Medical History Medical History (Updated 01/05/21 @ 16:58 by Alexandro Cortés MD) Asthma Chronic allergic rhinitis Dyslipidemia Eosinophilia Hypothyroidism Paroxysmal atrial fibrillation Pneumonia Steroid dependent Family History Family History Father Medical history unknown Mother Medical history unknown Surgical History Surgical History History of knee surgery History of nasal polypectomy History of shoulder surgery History of tubal ligation Social History Social History Household Members: None Housing: Apartment Alcohol intake: never Smoking Status: Never smoker Advance Directives: Yes Advance Directives on File: Yes Advance Directives Date on File: 11/10/20 service: No Current occupational status: retired Meds Allergies Allergy/AdvReac Type Severity Reaction Status Date / Time acetaminophen Allergy Unknown vomitting Verified 12/16/20 09:56 [Tylenol-Codeine #3] atorvastatin [Lipitor] Allergy Unknown nausea Verified 12/16/20 09:56 levofloxacin [From LEVAQUIN] Allergy Unknown RASH SOB, Verified 12/16/20 09:56 DIZZYNESS codeine [CODEINE] AdvReac Unknown NAUSEA & Verified 12/16/20 09:56 VOMITING morphine [MORPHINE] AdvReac Unknown NAUSEA & Verified 12/16/20 09:56 VOMITING pravastatin AdvReac Unknown myalgia Verified 12/16/20 09:56 Active Medications: Current Medications Generic Name Dose Route Start Last Admin Trade Name Freq PRN Reason Stop Dose Admin Apixaban 5 mg 01/04/21 21:00 01/05/21 08:43 Apixaban 5 Mg Tablet PO 5 mg BID THANH Administration Aripiprazole 5 mg 01/05/21 09:00 01/05/21 08:52 Aripiprazole 5 Mg Tablet PO Not Given DAILY THANH Benzonatate 100 mg 01/05/21 13:43 Benzonatate 100 Mg Capsule PO TID PRN Cough Buspirone HCl 5 mg 01/05/21 09:00 01/05/21 08:52 Buspirone Hcl 5 Mg Tablet PO Not Given BID THANH Diltiazem HCl 60 mg 01/05/21 13:00 01/05/21 14:51 Diltiazem Hcl 60 Mg Tablet PO 60 mg QID THANH Administration Protocol Escitalopram Oxalate 10 mg 01/05/21 09:00 01/05/21 08:52 Escitalopram Oxalate 10 Mg Tablet PO Not Given DAILY THANH Levalbuterol HCl 1.25 mg 01/05/21 13:45 Levalbuterol Hcl 1.25 Mg/0.5 Ml Vial.Neb INHALE Q3H PRN shortness of breath Omeprazole 20 mg 01/05/21 13:45 01/05/21 14:51 Omeprazole 20 Mg Capsule. PO 20 mg DAILY@0630 [facility] Administration Pharmacy Consult 1 each 01/04/21 15:16 Consult Rx Perform Med Rec MISCELLANE ONCE PRN Consult order Prednisone 5 mg 01/06/21 09:00 Prednisone 5 Mg Tablet PO DAILY [facility] Sodium Chloride 3 ml 01/05/21 08:00 01/05/21 16:37 0.9 % Sodium Chloride Flush 3 Ml Syringe IVFLUSH 3 ml QSHIFT [facility] Administration Home Medications Medication Instructions Recorded Confirmed Last Taken Type budesonide 0.5 mg/2 mL suspension 0.5 mg INHALATION BID 10/07/20 01/05/21 Unknown History for nebulization buspirone 5 mg tablet 5 mg PO BID PRN 10/07/20 01/04/21 Unknown History benzonatate 100 mg PO TID PRN 01/05/21 01/05/21 Unknown History prednisone 5 mg PO DAILY 01/05/21 01/05/21 Unknown History Physical Exam Vital Signs: Vital Signs: Last Vital Signs Temp 98.3 F 01/05/21 04:48 Pulse 78 01/05/21 16:35 Resp 16 01/05/21 16:35 BP 150/74 H 01/05/21 16:35 Pulse Ox 98 01/05/21 16:35 Body Mass Index 32.0 Const: General: cooperative, comfortable, no acute distress, alert, awake and anxious Nutritional Appearance: obese Orientation/consciousness: patient oriented x3 Limitations: no limitations HENMT: Head: Yes normocephalic and Yes atraumatic Neck: Neck: Yes trachea midline, Yes supple and Yes no JVD Resp: Effort & Inspection: normal respiratory effort Auscultation: no rales, wheezes and diminished lung sounds Cardio: Jugular venous distension: no JVD Palpation: normal PMI Rate: regular rate Rhythm: regular rhythm Heart sounds: S1 normal heart sound present and S2 normal heart sound present Skin: General skin exam: no rashes or lesions noted Neuro: General: patient oriented x3 and no focal motor deficits Extrem: General: Yes no clubbing, cyanosis or edema Psych: Appearance: grossly normal Affect: Anxious affect present Results Labs and Meds Result diagrams: 01/04/21 14:17 01/04/21 14:17 Lab results: Laboratory Results - last 24 hr 01/04/21 01/05/21 17:17 08:53 Troponin I High Sens 73.8 H COVID-19 ([facility]) Negative COVID-19 Clin Com See Note EKG 1. Shows atrial fibrillation rapid ventricular response with rate-related ST T wave changes. EKG 2. Shows normal sinus rhythm with voltage criteria for LVH no acute ST T wave changes Assessment and Plan (1) Paroxysmal atrial fibrillation: Status: Acute Highly symptomatic paroxysmal atrial fibrillation leading to hospitalization along with troponin release due to myocardial injury related to rapid heart rate with normal LV systolic function biatrial chamber size. Low bl ood pressure on admission which is now normalized. Given severity of her symptoms, should pursue rhythm control approach. Given her multiple risk factors will start her on Multaq 400 mg b.i.d.. If she remains in sinus rhythm with tolerating EKG, repeat EKG morning and no significant QT prolongation can be discharged home. CHADSVASc score of 3. Should be on full oral anticoagulation, started on Eliquis 5 mg b.i.d.. Follow-up renal function. Consider outpatient sleep study. Will follow with the patient tomorrow
[2021-01-05] MEDS: Dronedarone HCl 400 MG TABLET PO (22:23)
[2021-01-05] MEDS: busPIRone HCl 5 MG TABLET PO (22:24)
[2021-01-06] VITALS: BP 115/59; PULSE 73; RESP 16; TEMP 36.6; O2SAT 96
[2021-01-06] MEDS: 0.9 % Sodium Chloride Flush 3 ML SYRINGE IVFLUSH ×2 (00:57→08:23)
[2021-01-06 03:52] VITALS: BP 116/69; PULSE 67; RESP 16; TEMP 36.6; O2SAT 99
--- NOTE | 2021-01-06 07:00 | ECG_ITS ---
Test Reason : ON MULTAG Blood Pressure : / mmHG Vent. Rate : 073 BPM Atrial Rate : 073 BPM P-R Int : 158 ms QRS Dur : 078 ms QT Int : 388 ms P-R-T Axes : 038 -12 020 degrees QTc Int : 427 ms Normal sinus rhythm Moderate voltage criteria for LVH, may be normal variant Inferior infarct , age undetermined Abnormal ECG When compared with ECG of 04-JAN-2021 19:48, Inferior infarct is now Present Referred By: Alexandro Cortés Electronically Signed By:ALEXANDRO CORTÉS MD
[2021-01-06 07:25] VITALS: BP 132/66; PULSE 72; RESP 19; TEMP 36.4; O2SAT 98
[2021-01-06] MEDS: predniSONE 5 MG TABLET PO (08:22)
[2021-01-06] MEDS: Apixaban 5 MG TABLET PO (08:22)
[2021-01-06] MEDS: Dronedarone HCl 400 MG TABLET PO (08:22)
[2021-01-06] MEDS: dilTIAZem HCL 60 MG TABLET PO ×2 (08:22→13:50)
[2021-01-06] MEDS: Omeprazole 20 MG CAPSULE.DR PO (08:28)
[2021-01-06 09:15] VITALS: PULSE 80; O2SAT 98
--- NOTE | 2021-01-06 11:12 | P.PNCA_ITS ---
Subjective Subjective Date of Service: 01/06/21 Principal diagnosis: Paroxysmal atrial fibrillation Interval history: Patient feeling extremely well today. No recurrent atrial fibrillation. No palpitation, chest pain, shortness of breath. Tolerating Multaq well. EKG this morning does not show any significant QT prolongation. Review of Systems Constitutional: Reports no additional constitutional complaints Cardiovascular: Reports no additional cardiovascular complaints and Reports dyspnea on exertion Respiratory: Reports no additional respiratory complaints and Reports dyspnea on exertion Gastrointestinal: Reports no additional gastrointestinal complaints Genitourinary: Reports no additional female genitourinary complaints Musculoskeletal: Reports no additional musculoskeletal complaints Reports system reviewed and no additional complaints, except as documented Psychiatric: Reports no additional psychiatric complaints Physical Exam Vital Signs: Last Vital Signs Temp 97.6 F 01/06/21 07:25 Pulse 80 01/06/21 09:15 Resp 19 01/06/21 07:25 BP 132/66 01/06/21 07:25 Pulse Ox 98 01/06/21 07:25 Body Mass Index 32.0 Const General: cooperative, comfortable, alert and awake Nutritional Appearance: overweight Orientation/consciousness: patient oriented x3 Limitations: no limitations Neck Neck: Yes trachea midline, Yes supple and Yes no JVD Resp Effort & Inspection: normal respiratory effort Auscultation: diminished lung sounds Cardio Jugular venous distension: no JVD Palpation: normal PMI Rate: regular rate Rhythm: regular rhythm Heart sounds: S1 normal heart sound present and S2 normal heart sound present GI Auscultation: normal bowel sounds Skin General skin exam: no rashes or lesions noted Neuro General: patient oriented x3 Extrem General: Yes no clubbing, cyanosis or edema Psych Appearance: grossly normal Results Labs and Meds Result diagrams: 01/04/21 14:17 01/04/21 14:17 ECG Attestation: I personally reviewed and interpreted this ECG as follows: Progress Note: A&P Assessment and plan (1) Paroxysmal atrial fibrillation: Status: Acute Assessment and Plan: Highly symptomatic paroxysmal atrial fibrillation leading to hospitalization with release of troponin due to rate-related myocardial stress. Not suggestive of acute coronary syndrome. Would require antiarrhythmic drug support to maintain sinus rhythm and avoid repeat hospitalization. Multaq as shown in tries to do the same. Also continue full oral anticoagulation with Eliquis 5 mg b.i.d.. Should have repeat basic metabolic profile prior to discharge. Patient will be set up for outpatient follow-up with Holter monitor and stress test. This was discussed with her. She understands and agrees. Patient can be discharged from cardiac perspective after lab work and set up for followup. Thank you for allowing us to partake in the care Fall Risk Details Current Medications: Current Medications Generic Name Dose Route Start Last Admin Trade Name Freq PRN Reason Stop Dose Admin Apixaban 5 mg 01/04/21 21:00 01/06/21 08:22 Apixaban 5 Mg Tablet PO 5 mg BID THANH Administration Aripiprazole 5 mg 01/05/21 09:00 01/06/21 08:32 Aripiprazole 5 Mg Tablet PO Not Given DAILY THANH Benzonatate 100 mg 01/05/21 13:43 Benzonatate 100 Mg Capsule PO TID PRN Cough Buspirone HCl 5 mg 01/05/21 09:00 01/06/21 08:32 Buspirone Hcl 5 Mg Tablet PO Not Given BID THANH Diltiazem HCl 60 mg 01/05/21 13:00 01/06/21 08:22 Diltiazem Hcl 60 Mg Tablet PO 60 mg QID THANH Administration Protocol Dronedarone 400 mg 01/05/21 21:00 01/06/21 08:22 Dronedarone Hcl 400 Mg Tablet PO 400 mg BID THANH Administration Escitalopram Oxalate 10 mg 01/05/21 09:00 01/06/21 08:32 Escitalopram Oxalate 10 Mg Tablet PO Not Given DAILY THANH Levalbuterol HCl 1.25 mg 01/05/21 13:45 01/06/21 09:13 Levalbuterol Hcl 1.25 Mg/0.5 Ml Vial.Neb INHALE 1.25 mg Q3H PRN Administration shortness of breath Omeprazole 20 mg 01/05/21 13:45 01/06/21 08:28 Omeprazole 20 Mg Capsule. PO 20 mg DAILY@0630 [facility] Administration Pharmacy Consult 1 each 01/04/21 15:16 Consult Rx Perform Med Rec MISCELLANE ONCE PRN Consult order Prednisone 5 mg 01/06/21 09:00 01/06/21 08:22 Prednisone 5 Mg Tablet PO 5 mg DAILY THANH Administration Sodium Chloride 3 ml 01/05/21 08:00 01/06/21 08:23 0.9 % Sodium Chloride Flush 3 Ml Syringe IVFLUSH 3 ml QSHIFT [facility] Administration Time Spent With Patient Time: Total time spent is greater than 50% in coordination of care (as documented) at patient's floor/unit and/or counseling patient: Time with patient: 15 - 24 minutes
[2021-01-06 11:42] VITALS: BP 123/59; PULSE 85; RESP 20; TEMP 36.3; O2SAT 99
[2021-01-06 13:10] LABS: Anion Gap 14 (12-20); Blood Urea Nitrogen 21 mg/dL (9-16); Calcium 9.3 mg/dL (8.4-10.2); Carbon Dioxide 27 mmol/L (22-29); Chloride 105 mmol/L (96-108); Creatinine Clr Calc Pharmacy 51.8; Estimated Glomerular Filt Rate 54; Glucose Random 121 mg/dL (60-115); Potassium 4.5 mmol/L (3.3-5.1); Sodium 141 mmol/L (135-145)
--- NOTE | 2021-01-06 13:51 | MHC.CM.PN ---
pt dcd home with no skilled services ordered by
--- NOTE | 2021-01-07 18:10 | P.DS_ITS ---
DS: Providers Provider Date of Service: 01/07/21 Date of admission: 01/05/21 04:43 Date of discharge: 01/06/21 Primary care physician: Angelique Valentine MD Consults: 01/05/21 13:30 Consult to Cardiology Routine Consulting Provider: Alexandro Cortés Reason for consultation: atrial fibrillation DS: Diagnosis Discharge Diagnosis (1) Paroxysmal atrial fibrillation: Status: Acute DS: Medications Discharge Medications Home Medications: Home Medications Medication Instructions Recorded Confirmed budesonide 0.5 mg/2 mL suspension 0.5 mg INHALATION BID 10/07/20 01/05/21 for nebulization buspirone 5 mg tablet 5 mg PO BID PRN 10/07/20 01/04/21 benzonatate 100 mg PO TID PRN 01/05/21 01/05/21 prednisone 5 mg PO DAILY 01/05/21 01/05/21 Previous Rx's Medication Instructions Recorded loratadine 10 mg tablet 10 mg PO DAILY #90 tab 09/22/20 omeprazole 20 mg capsule,delayed 20 mg PO DAILY 90 Days #90 cap 11/10/20 release hydrocortisone 1 % topical cream 1 appl TOPICAL BID PRN 30 Days 12/01/20 #28.35 g albuterol sulfate 1 inh INHALATION Q4-6H PRN #2 ea 01/06/21 apixaban [Eliquis] 5 mg PO BID #60 tab 01/06/21 diltiazem HCl [Cardizem CD] 120 mg PO DAILY #30 cap 01/06/21 dronedarone [Multaq] 400 mg PO BID #60 tab 01/06/21 DS: Summary Hospital Course Hospital Course: 70-year-old female with a past medical history of COPD/asthma on chronic prednisone, Toprol mass, recently started on [place] monthly injections; history of eosinophilia, anxiety, depression presented to the hospital with a chief complaint of shortness of breath. Patient reported that she has been having increased shortness of breath over the past 1 week. Also associated with cough. Denies any numbness tingling. Mentions she has intermittent episodes of chest pain. Denies any fevers. Denies any GI or symptoms. Review of all other systems is negative except mentioned above ER course: Per ER team patient appeared to be in mild distress on presentation, saturating at 98% on room air, speaking in full sentences. Given magnesium sulfate, nebulizations, steroids. Admitted to the hospital for further management. EKG negative. Troponin negative. Hospital Course problem levy section: 1.New onset atrial fibrillation with rapid ventricular response. Patient treated with IV Cardizem 20 mg, IV digoxin 0.25 and placed on IV Cardizem drip subsequently patient converted to normal sinus rhythm and remains in normal sinus rhythm. Subsequently patient was started on Cardizem and metoprolol, a Eliquis-seems improved significantly. patient denies any chest pain, troponin elevated but flat likely due to tachycardia patient had no chest pain. echo : ef 60-65%, normal systolic function. acute kidney injury: Patient was given hydration .. Renal function improved with hydration. Monitor renal function outpatient with PCP, also follow-up with Cardiology for further management . Asthma levy: Continue albuterol, prednisone, budesonide inhaler.. Above management discussed with the patient in detail length she understand and in agreement with the above plan, time spent 50 minutes and 50% time spent on counseling. Significant findings: As above. Procedures performed: None. Treatment and response: As above. Complications: None. Time Spent with Patient Time attestation: Total time spent providing and/or coordinating discharge services: Discharge coordination time: Greater than 30 minutes Physical Exam Vital Signs: Vital Signs: Last Vital Signs Temp 97.4 F 01/06/21 11:42 Pulse 85 01/06/21 11:42 Resp 20 01/06/21 11:42 BP 123/59 L 01/06/21 11:42 Pulse Ox 99 01/06/21 11:42 Body Mass Index 32.0 Discharge Plan Discharge Patient Disposition: Home, Self-Care Referrals: Angelique Li MD [Primary Care Provider] - Discharge Medications: New Eliquis 5 mg Tablet 5 mg PO BID Qty: 60 RF: 0 Multaq 400 mg Tablet 400 mg PO BID Qty: 60 RF: 0 diltiazem HCl [Cardizem CD] 120 mg capsule,extended release 24hr 120 mg PO DAILY Qty: 30 RF: 0 albuterol sulfate 90 mcg/actuation aerosol powdr breath activated 1 inh inhalation Q4-6H PRN (Reason: asthma) Qty: 2 RF: 0 Continued loratadine 10 mg tablet 10 mg PO DAILY Qty: 90 RF: 3 omeprazole 20 mg capsule,delayed release(DR/EC) 20 mg PO DAILY 90 Days Qty: 90 RF: 3 benzonatate 100 mg Capsule 100 mg PO TID PRN (Reason: Cough) RF: 0 prednisone 5 mg Tablet 5 mg PO DAILY RF: 0 hydrocortisone [Anti-Itch (HC)] 1 % cream 1 appl topical BID PRN (Reason: skin irritation) 30 Days Qty: 28.35 RF: 1 budesonide 0.5 mg/2 mL suspension for nebulization 0.5 mg inhalation BID RF: 0 buspirone 5 mg tablet 5 mg PO BID PRN (Reason: Anxiety) RF: 0 Discharge Orders: Discharge Order (Routine); Ordered 01/06/21 Ordered By: Julianne Matamoros Diet: advance to usual diet Activity on Discharge: As tolerated Stand Alone Forms: Patient Portal Discharge page Print Language: Armenian Other Ambulatory Orders: Basic Metabolic Panel Fasting (Routine) Timeframe: 1 Week Facility: [facility] - Location: Laboratory Ordered By: Julianne Matamoros Care Plan Goals: Patient came to the hospital because of palpitations, also have acute kidney injury: Patient was given hydration and also started on heart rate control medications-seems to be improving, subsequently going home with rate control medications and Eliquis (blood thinner) for stroke prevention. Renal function improved with hydration. Monitor renal function outpatient with PCP, also follow-up with Cardiology for further management . Health Concerns: As above. Plan of Treatment: As above. Assessment: as above. Patient Instructions: Diltiazem (By mouth), Dronedarone (By mouth), Apixaban (By mouth) Discharge Date/Time: 01/06/21 14:24
== END 2021-01-06 14:24 | disposition home or self-care (01) | DRG 309 ==
LOC: HO.ED 15:18 → HO.EDOVER 01-05 04:49 → HO.IMC 01-05 19:28
PROVIDERS: Nurse Practitioner Acute Care; Admitting Provider Hospitalist; Emergency Provider Emergency Medicine; PCP Internal Medicine; Visit Provider Internal Medicine
DX: I48.0 Paroxysmal atrial fibrillation (principal); N17.9 Acute kidney failure, unspecified; J44.9 Chronic obstructive pulmonary disease, unspecified; I95.9 Hypotension, unspecified; K21.9 Gastro-esophageal reflux disease without esophagitis; E03.9 Hypothyroidism, unspecified; Z20.822 Contact with and (suspected) exposure to COVID-19; Z88.5 Allergy status to narcotic agent; Z88.6 Allergy status to analgesic agent; Z79.01 Long term (current) use of anticoagulants; Z79.52 Long term (current) use of systemic steroids; Z79.899 Other long term (current) drug therapy
CPT/HCPCS: 36415; 71045; 80048; 80053; 84443; 84484; 85025; 85610; 87635; 93005; 93306; 94640; 96374; 99285; 99291

== ENCOUNTER 2021-01-12 09:06 | Outpatient (REF) | payer MEDICARE, SELFPAY ==
[2021-01-12 10:09] LABS: Alanine Aminotransferase 10 U/L (0-31); Albumin Level 4.4 g/dL (3.5-5.0); Alkaline Phosphatase 70 U/L (39-117); Anion Gap 14 (12-20); Aspartate Amino Transferase 14 U/L (5-31); Bilirubin Total 0.5 mg/dL (0.0-1.0); Blood Urea Nitrogen 20 mg/dL (9-16); Calcium 9.6 mg/dL (8.4-10.2); Carbon Dioxide 28 mmol/L (22-29); Chloride 106 mmol/L (96-108); Cholesterol 296 mg/dL; Estimated Glomerular Filt Rate 51; Glucose Fasting 90 mg/dL (60-99); HDL Cholesterol 69 mg/dL; LDL Cholesterol Calculated 201 mg/dl; Potassium 4.3 mmol/L (3.3-5.1); Sodium 144 mmol/L (135-145); Total Protein 7.2 g/dL (6.5-8.0); Triglycerides 134 mg/dL
[2021-01-12 10:32] LABS: TSH reflex Free T4 4.79 uIU/mL (0.32-4.0)
[2021-01-12 11:12] LABS: Free T4 (Free Thyroxine) 0.94 ng/dL (0.71-1.85)
== END 2021-01-12 09:07 | disposition home or self-care (01) ==
LOC: HO.LAB 09:06
PROVIDERS: Absent Provider Internal Medicine; PCP Internal Medicine; Visit Provider Internal Medicine
DX: E03.9 Hypothyroidism, unspecified (principal); E78.5 Hyperlipidemia, unspecified
CPT/HCPCS: 36415; 80053; 80061; 84439; 84443

== ENCOUNTER → 2021-01-26 09:18 | Outpatient (BNVA) | payer MEDICARE, SELFPAY | PROVIDERS: PCP Internal Medicine; Visit Provider Nurse Practitioner Family | DX: I48.0 Paroxysmal atrial fibrillation (principal); I10 Essential (primary) hypertension; E78.5 Hyperlipidemia, unspecified; Z79.899 Other long term (current) drug therapy | CPT/HCPCS: 93005; 99212 ==

== ENCOUNTER 2021-02-04 10:47 | Emergency (ER) | payer MEDICARE, SELFPAY ==
[2021-02-04 11:05] VITALS: BP 158/73; PULSE 84; RESP 19; TEMP 36.4; O2SAT 95; BMI 30.4
--- NOTE | 2021-02-04 11:48 | ED.ASTHMA ---
HPI - Asthma General Chief Complaint: Asthma Stated Complaint: difficulty breathing Time Seen by Provider: 02/04/21 11:48 Source: patient Mode of arrival: ambulatory Limitations: no limitations Related Data Home Medications Medication Instructions Recorded Confirmed loratadine 1 tab PO DAILY 02/07/21 02/17/21 aripiprazole 5 mg tablet 5 mg PO DAILY 02/17/21 02/17/21 buspirone 5 mg tablet 5 mg PO BID 02/17/21 02/17/21 escitalopram oxalate 10 mg tablet 10 mg PO DAILY 02/17/21 02/17/21 Previous Rx's Medication Instructions Recorded omeprazole 20 mg capsule,delayed 20 mg PO DAILY 90 Days #90 cap 11/10/20 release albuterol sulfate 1 inh INHALATION Q4-6H PRN #2 ea 01/06/21 levothyroxine 25 mcg tablet 25 mcg PO DAILY 90 Days #90 tab 01/08/21 rosuvastatin 5 mg tablet 5 mg PO DAILY 90 Days #90 tab 01/14/21 albuterol sulfate 2.5 mg INHALATION Q4H PRN #180 ml 01/28/21 apixaban 5 mg tablet 5 mg PO BID #60 tab 01/30/21 diltiazem HCl 120 mg 120 mg PO DAILY #30 cap 01/30/21 capsule,extended release 24 hr dronedarone 400 mg tablet 400 mg PO BID #60 tab 01/30/21 dextromethorphan-guaifenesin 5 ml PO Q6H PRN #237 ml 02/09/21 prednisone 40 mg PO DAILY #10 tab 02/09/21 levalbuterol tartrate 45 2 puff PO Q6H PRN 30 Days #15 g 02/17/21 mcg/actuation aerosol inhaler umeclidinium 62.5 mcg/actuation 1 inh INHALATION DAILY 30 Days #30 02/17/21 blister powder for inhalation ea Allergies Allergy/AdvReac Type Severity Reaction Status Date / Time acetaminophen Allergy Unknown vomitting Verified 02/17/21 22:32 [Tylenol-Codeine #3] atorvastatin [Lipitor] Allergy Unknown nausea Verified 02/17/21 22:32 levofloxacin [From LEVAQUIN] Allergy Unknown RASH SOB, Verified 02/17/21 22:32 DIZZYNESS codeine [CODEINE] AdvReac Unknown NAUSEA & Verified 02/17/21 22:32 VOMITING morphine [MORPHINE] AdvReac Unknown NAUSEA & Verified 02/17/21 22:32 VOMITING pravastatin AdvReac Unknown myalgia Verified 02/17/21 22:32 [facility] Past Medical History Medical History (Updated 02/17/21 @ 22:36 by Guzman Pinon MD) Asthma Chronic allergic rhinitis Dyslipidemia Eosinophilia HTN (hypertension) Hypothyroidism Paroxysmal atrial fibrillation Pneumonia Steroid dependent Surgical History History of knee surgery History of nasal polypectomy History of shoulder surgery History of tubal ligation Family History Family History Father Medical history unknown Mother Medical history unknown Social History Social History Household Members: None Housing: Apartment Do you presently have visiting nurse or other home services: No Alcohol intake: never Advance Directives Date on File: 11/10/20 service: No Current occupational status: retired Physical Exam Vital Signs: Vital Signs: Last Vital Signs Temp 97.6 F 02/04/21 11:05 Pulse 84 02/04/21 11:05 Resp 19 02/04/21 11:05 BP 158/73 H 02/04/21 11:05 Pulse Ox 95 02/04/21 11:05 Body Mass Index 30.4 Course Course Course Narrative: Looks like patient left prior to completing treatment Discharge Plan Discharge Patient Disposition: Elopement Prescriptions: No Action omeprazole 20 mg capsule,delayed release(DR/EC) 20 mg PO DAILY 90 Days Qty: 90 RF: 3 levothyroxine 25 mcg tablet 25 mcg PO DAILY 90 Days Qty: 90 RF: 1 albuterol sulfate 2.5 mg /3 mL (0.083 %) solution for nebulization 2.5 mg inhalation Q4H PRN (Reason: shortness of breath or wheezing) Qty: 180 RF: 3 Eliquis 5 mg tablet 5 mg PO BID Qty: 60 RF: 5 diltiazem HCl [Cardizem CD] 120 mg capsule,extended release 24hr 120 mg PO DAILY Qty: 30 RF: 5 Multaq 400 mg tablet 400 mg PO BID Qty: 60 RF: 5 albuterol sulfate 90 mcg/actuation aerosol powdr breath activated 1 inh inhalation Q4-6H PRN (Reason: asthma) Qty: 2 RF: 0 loratadine 10 mg tablet 1 tab PO DAILY RF: 0 dextromethorphan-guaifenesin 10-100 mg/5 mL Syrup 5 ml PO Q6H PRN (Reason: Cough) Qty: 237 RF: 0 prednisone 20 mg tablet 40 mg PO DAILY Qty: 10 RF: 0 rosuvastatin 5 mg tablet 5 mg PO DAILY 90 Days Qty: 90 RF: 3 aripiprazole 5 mg tablet 5 mg PO DAILY RF: 0 escitalopram oxalate 10 mg tablet 10 mg PO DAILY RF: 0 buspirone 5 mg tablet 5 mg PO BID RF: 0 levalbuterol tartrate [Xopenex HFA] 45 mcg/actuation HFA aerosol inhaler 2 puff PO Q6H PRN (Reason: shortness of breath or wheezing) 30 Days Qty: 15 RF: 11 Incruse Ellipta 62.5 mcg/actuation blister with device 1 inh inhalation DAILY 30 Days Qty: 30 RF: 11 Discharge Date/Time: 02/04/21 13:19
--- NOTE | 2021-02-04 13:18 | PC.NURSE ---
THIS RN WENT TO PATIENT ROOM TO MEDICATE SHORTLY AFTER MEDICATIONS ORDERED, PT NOT PRESENT IN ROOM, USED HOSPITAL GOWN ON BED, PT STILL NOT IN ROOM >10 MINUTES LATER.
== END 2021-02-04 13:19 | disposition left against medical advice (07) ==
PROVIDERS: Emergency Provider Emergency Medicine; PCP Internal Medicine
DX: J45.909 Unspecified asthma, uncomplicated (principal); I48.91 Unspecified atrial fibrillation; E78.5 Hyperlipidemia, unspecified; I10 Essential (primary) hypertension; Z79.01 Long term (current) use of anticoagulants; Z79.02 Long term (current) use of antithrombotics/antiplatelets
CPT/HCPCS: 99282; 99284

== ENCOUNTER 2021-02-07 15:23 | Observation (INO) | payer MEDICARE, SELFPAY ==
--- NOTE | ~2021-02-07 | XR_ITS ---
EXAMINATION: XR CHEST CLINICAL INFORMATION: Shortness of breath. COMPARISON: Chest done on 01/04/2021. TECHNIQUE: Frontal view of the chest was obtained. FINDINGS: Persistent stable mild diffuse bronchial thickening, prominent bronchovascular markings are noted bilaterally, most consistent with diffuse airspace disease, compatible with bronchial asthma. No significant abnormality is noted involving the heart, mediastinum, bony thorax or soft tissues. XR/XR chest 1V IMPRESSION: No significant change since 01/04/2021. Diffuse bronchovascular prominent markings and bronchial thickening are consistent with known history of bronchial asthma. No superimposed airspace consolidation.
[2021-02-07 15:30] VITALS: BP 111/87; BP 166/65; PULSE 88; PULSE 90; RESP 20; TEMP 36.7; O2SAT 97; O2SAT 98; BMI 30.4
[2021-02-07 15:49] LABS: MANUAL DIFF FLAG NO
[2021-02-07 15:51] LABS: Basophils Absolute Auto 0.1 X10*3/uL (0.0-0.2); Basophils Percent Auto 0.8 % (0-2); Eosinophils Absolute Auto 0.1 X10*3/uL (0.0-0.4); Eosinophils Percent Auto 1.2 % (0-4); Hematocrit 39.9 % (37-47); Hemoglobin 12.3 g/dl (12.0-16.0); Imm Gran Abs Auto 0.03 X10*3/uL (0.00-0.03); Imm Gran Pct Auto 0.3 % (0.0-0.4); Lymphocytes Absolute Auto 1.3 X10*3/uL (1.2-4.9); Lymphocytes Percent Auto 13.4 % (20-40); Mean Corpuscular HGB Conc 30.8 g/dl (31.0-35.0); Mean Corpuscular Hemoglobin 26.7 pg (27.0-33.0); Mean Corpuscular Volume 86.7 fL (80-98); Mean Platelet Volume 9.3 fL (9.4-12.3); Monocytes Absolute Auto 0.3 X10*3/uL (0.1-1.2); Monocytes Percent Auto 3.2 % (2-11); Neutrophils Absolute Auto 7.6 X10*3/uL (2.0-8.3); Neutrophils Percent Auto 81.1 % (45-73); Platelet Count 379 X10*3/uL (160-400); Red Cell Distribution Width 14.6 % (11.0-16.0); White Blood Count 9.3 X10*3/uL (4.8-10.8)
[2021-02-07 15:54] VITALS: BP 139/57; PULSE 88; RESP 18; TEMP 36.9; O2SAT 96
--- NOTE | 2021-02-07 16:09 | ECG_ITS ---
Test Reason : DYSPNEA Blood Pressure : / mmHG Vent. Rate : 094 BPM Atrial Rate : 094 BPM P-R Int : 144 ms QRS Dur : 084 ms QT Int : 366 ms P-R-T Axes : 046 -19 020 degrees QTc Int : 457 ms Normal sinus rhythm Voltage criteria for left ventricular hypertrophy Cannot rule out Inferior infarct (cited on or before 06-JAN-2021) Abnormal ECG When compared with ECG of 06-JAN-2021 07:42, No significant change was found Referred By: Nikia Wing Electronically Signed By:LOUIE CHAUDHARY
--- NOTE | 2021-02-07 16:11 | ED.ASTHMA ---
HPI - Asthma General Chief Complaint: Asthma Stated Complaint: chest pressure/sob x 5 days with copd hx Time Seen by Provider: 02/07/21 16:04 Source: patient Mode of arrival: EMS Limitations: no limitations History of Present Illness HPI Narrative: Patient comes emergency room complaining of shortness of breath. Patient has had an asthma exacerbation intermittently for 1 week, complaining of dry cough. Patient states she used her inhalers and the physician treatments at home, takes 5 mg of prednisone daily. Patient also complaining of chest tightness, continuously for at least 5 days. Patient denies actual chest pain. Related Data Home Medications Medication Instructions Recorded Confirmed budesonide 0.5 mg/2 mL suspension 0.5 mg INHALATION BID 10/07/20 01/14/21 for nebulization buspirone 5 mg tablet 5 mg PO BID PRN 10/07/20 01/14/21 benzonatate 100 mg PO TID PRN 01/05/21 01/14/21 prednisone 5 mg PO DAILY 01/05/21 01/14/21 Previous Rx's Medication Instructions Recorded loratadine 10 mg tablet 10 mg PO DAILY #90 tab 09/22/20 omeprazole 20 mg capsule,delayed 20 mg PO DAILY 90 Days #90 cap 11/10/20 release hydrocortisone 1 % topical cream 1 appl TOPICAL BID PRN 30 Days 12/01/20 #28.35 g albuterol sulfate 1 inh INHALATION Q4-6H PRN #2 ea 01/06/21 levothyroxine 25 mcg tablet 25 mcg PO DAILY 90 Days #90 tab 01/08/21 rosuvastatin 5 mg tablet 5 mg PO DAILY 90 Days #90 tab 01/14/21 albuterol sulfate 2.5 mg INHALATION Q4H PRN #180 ml 01/28/21 apixaban 5 mg tablet 5 mg PO BID #60 tab 01/30/21 diltiazem HCl 120 mg 120 mg PO DAILY #30 cap 01/30/21 capsule,extended release 24 hr dronedarone 400 mg tablet 400 mg PO BID #60 tab 01/30/21 Allergies Allergy/AdvReac Type Severity Reaction Status Date / Time acetaminophen Allergy Unknown vomitting Verified 02/04/21 11:07 [Tylenol-Codeine #3] atorvastatin [Lipitor] Allergy Unknown nausea Verified 02/04/21 11:07 levofloxacin [From LEVAQUIN] Allergy Unknown RASH SOB, Verified 02/04/21 11:07 DIZZYNESS codeine [CODEINE] AdvReac Unknown NAUSEA & Verified 02/04/21 11:07 VOMITING morphine [MORPHINE] AdvReac Unknown NAUSEA & Verified 02/04/21 11:07 VOMITING pravastatin AdvReac Unknown myalgia Verified 02/04/21 11:07 Review of Systems Review of Systems: Constitutional : No Weight loss, No Fever, No Chills, No Night Sweats, No Fatigue, No Malaise ENT/Mouth : No Hearing loss, No Ear Pain, No Nasal Congestion, No Sinus Pain, No Hoarseness, No sore throat, No Rhinorrhea, No Swallowing Difficulty Eyes: No Eye Pain, No Swelling, No Redness, No Foreign Body, No Discharge, No Vision Changes Cardiovascular : Cleaning of chest tightness, no chest pain, No Orthopnea, No Edema, No Palpitations Respiratory : Complaining of dry Cough, No Sputum, complaining of Wheezing, No Smoke Exposure, complaining of Dyspnea Gastrointestinal : No Nausea, No Vomiting, No Diarrhea, No Constipation, No abdominal Pain, No Hematochezia, No Melena Genitourinary : no irregular bleeding, No Dysuria, No Urinary Frequency, No Hematuria, No Urinary Incontinence, No Urgency, No Flank Pain, No Urinary Flow Changes, No Hesitancy Musculoskeletal : No joint pain, No Myalgias, No Joint Swelling Skin : No Skin Lesions, No rash Neuro : No Weakness, No Numbness, No Paresthesias, No Loss of Consciousness, No Dizziness, No Headache Psych : No Anxiety/Panic, No Depression, No SI/HI/AH/VH, No Social Issues, Heme/Lymph: No Bruising, No Bleeding,No Lymphadenopathy Endocrine : No Polyuria, No Polydipsia, No Temperature Intolerance [facility] Past Medical History Medical History Asthma Chronic allergic rhinitis Dyslipidemia Eosinophilia HTN (hypertension) Hypothyroidism Paroxysmal atrial fibrillation Pneumonia Steroid dependent Surgical History History of knee surgery History of nasal polypectomy History of shoulder surgery History of tubal ligation Family History Family History Father Medical history unknown Mother Medical history unknown Social History Social History Household Members: None Housing: Apartment Alcohol intake: never Smoking Status: Never smoker Tobacco Type: Cigarette Smoked in Last 30 Days: No Use of substances other than those prescribed or required for medical reasons: No Advance Directives: Yes Advance Directives on File: Yes Advance Directives Date on File: 11/10/20 service: No Current occupational status: retired Physical Exam Vital Signs: Vital Signs: Last Vital Signs Temp 97.8 F 02/07/21 19:09 Pulse 87 02/07/21 19:09 Resp 22 H 02/07/21 19:09 BP 119/53 L 02/07/21 19:09 Pulse Ox 98 02/07/21 19:09 Body Mass Index 30.4 Appearance: Alert. Oriented X3. No acute distress. Eyes: Pupils equal, round and reactive to light. ENT: Pharynx normal. Neck: Normal inspection. Neck supple. No lymph nodes noted. No crepitus CVS: Normal heart rate and rhythm. Pulses normal. Normal S1 and S2 Respiratory: Mild respiratory distress, speaking full sentences, actively coughing, bilateral diffuse wheezing, no crackles Abdomen: Soft and nontender. No rigidity. No distention. good BS x4 Skin: Skin warm and dry. Normal skin color. Normal skin turgor. Extremities: No lower extremity edema. No lower extremity edema. No Lacerations. No Rash Neuro: Oriented X 3. No motor deficit. No sensory deficit. Moving all extermities. No slurred speech. Course Course Course Narrative: Patient received 2 nebulization treatments, steroids, magnesium, patient states that she still feels tight, continues wheezing bilaterally, oxygen saturation 96% on room air. I discussed with the patient that we recommend admission, patient agrees to plan. MDM - Asthma Lab Data Result diagrams: 02/07/21 15:43 02/07/21 15:43 Labs: Lab Results 02/07/21 02/07/21 02/07/21 Range/Units 15:43 15:43 15:43 WBC 9.3 (4.8-10.8) X10*3/uL RBC 4.60 (4.20-5.50) X10*6/uL Hgb 12.3 (12.0-16.0) g/dl Hct 39.9 (37-47) % MCV 86.7 (80-98) fL MCH 26.7 L (27.0-33.0) pg MCHC 30.8 L (31.0-35.0) g/dl RDW 14.6 (11.0-16.0) % Plt Count 379 (160-400) X10*3/uL MPV 9.3 L (9.4-12.3) fL Immature Gran % (Auto) 0.3 (0.0-0.4) % Neut % (Auto) 81.1 H (45-73) % Lymph % (Auto) 13.4 L (20-40) % [place] % (Auto) 3.2 (2-11) % Eos % (Auto) 1.2 (0-4) % Baso % (Auto) 0.8 (0-2) % Lymph # (Auto) 1.3 (1.2-4.9) X10*3/uL [place] # (Auto) 0.3 (0.1-1.2) X10*3/uL Eos # (Auto) 0.1 (0.0-0.4) X10*3/uL Baso # (Auto) 0.1 (0.0-0.2) X10*3/uL Abs Immat Gran (auto) 0.03 (0.00-0.03) X10*3/uL Absolute Neuts (auto) 7.6 (2.0-8.3) X10*3/uL Absolute Nucleated RBC 0.000 (0.0-0.012) X10*3/uL Nucleated RBC % (auto) 0.0 (0.0-0.2) /100WBC Hold Purple Top SEE NOTE Sodium 140 (135-145) mmol/L Potassium 4.6 (3.3-5.1) mmol/L Chloride 104 (96-108) mmol/L Carbon Dioxide 23 (22-29) mmol/L Anion Gap 18 (12-20) BUN 26 H (9-16) mg/dL Creatinine 1.32 (0.5-1.4) mg/dL Estim Creat Clear Calc 38.6 Estimated GFR 40 Random Glucose 199 H D (60-115) mg/dL Calcium 9.3 (8.4-10.2) mg/dL Troponin I High Sens (<3.5-17.0) ng/L B-Natriuretic Peptide (<100) pg/mL Coronavirus (PCR) (Negative) Influenza Type A (PCR) (Negative) Influenza Type B (PCR) (Negative) RSV RNA Qual (PCR) (Negative) 02/07/21 02/07/21 Range/Units 16:54 16:54 WBC (4.8-10.8) X10*3/uL RBC (4.20-5.50) X10*6/uL Hgb (12.0-16.0) g/dl Hct (37-47) % MCV (80-98) fL MCH (27.0-33.0) pg MCHC (31.0-35.0) g/dl RDW (11.0-16.0) % Plt Count (160-400) X10*3/uL MPV (9.4-12.3) fL Immature Gran % (Auto) (0.0-0.4) % Neut % (Auto) (45-73) % Lymph % (Auto) (20-40) % [place] % (Auto) (2-11) % Eos % (Auto) (0-4) % Baso % (Auto) (0-2) % Lymph # (Auto) (1.2-4.9) X10*3/uL [place] # (Auto) (0.1-1.2) X10*3/uL Eos # (Auto) (0.0-0.4) X10*3/uL Baso # (Auto) (0.0-0.2) X10*3/uL Abs Immat Gran (auto) (0.00-0.03) X10*3/uL Absolute Neuts (auto) (2.0-8.3) X10*3/uL Absolute Nucleated RBC (0.0-0.012) X10*3/uL Nucleated RBC % (auto) (0.0-0.2) /100WBC Hold Purple Top Sodium (135-145) mmol/L Potassium (3.3-5.1) mmol/L Chloride (96-108) mmol/L Carbon Dioxide (22-29) mmol/L Anion Gap (12-20) BUN (9-16) mg/dL Creatinine (0.5-1.4) mg/dL Estim Creat Clear Calc Estimated GFR Random Glucose (60-115) mg/dL Calcium (8.4-10.2) mg/dL Troponin I High Sens < 3.5 D (<3.5-17.0) ng/L B-Natriuretic Peptide 93 (<100) pg/mL Coronavirus (PCR) NEGATIVE (Negative) Influenza Type A (PCR) NEGATIVE (Negative) Influenza Type B (PCR) NEGATIVE (Negative) RSV RNA Qual (PCR) NEGATIVE (Negative) Imaging Data Chest x-ray: Radiologist's impression: [address] [id number] ReportSigned Patient: Sona PinonMR#: [id number]: [id number]:[id number]/Sex: 70 / FADM Date: 02/07/21Loc: HO.EDAttending Dr: Ordering Physician: ANIKT PENDLETON MD Date of Service: 02/07/21 Procedure(s): XR chest 1V Accession Number(s): [id number] cc: ANKIT PENDLETON MD~ EXAMINATION: XR CHEST CLINICAL INFORMATION: Shortness of breath. COMPARISON: Chest done on 01/04/2021. TECHNIQUE: Frontal view of the chest was obtained. FINDINGS: Persistent stable mild diffuse bronchial thickening, prominent bronchovascular markings are noted bilaterally, most consistent with diffuse airspace disease, compatible with bronchial asthma. No significant abnormality is noted involving the heart, mediastinum, bony thorax or soft tissues. XR/XR chest 1V IMPRESSION: No significant change since 01/04/2021. Diffuse bronchovascular prominent markings and bronchial thickening are consistent with known history of bronchial asthma. No superimposed airspace consolidation. ECG Data Attestation: I personally reviewed and interpreted this ECG as follows: (Sign-out rhythm, no ST segment depression or elevation, nonspecific T-wave inversion in lead 3, QTC 457) Discharge Plan Discharge Clinical Impression: Asthma Patient Disposition: Admitted As Inpatient Prescriptions: No Action loratadine 10 mg tablet 10 mg PO DAILY Qty: 90 RF: 3 omeprazole 20 mg capsule,delayed release(DR/EC) 20 mg PO DAILY 90 Days Qty: 90 RF: 3 levothyroxine 25 mcg tablet 25 mcg PO DAILY 90 Days Qty: 90 RF: 1 albuterol sulfate 2.5 mg /3 mL (0.083 %) solution for nebulization 2.5 mg inhalation Q4H PRN (Reason: shortness of breath or wheezing) Qty: 180 RF: 3 Eliquis 5 mg tablet 5 mg PO BID Qty: 60 RF: 5 diltiazem HCl [Cardizem CD] 120 mg capsule,extended release 24hr 120 mg PO DAILY Qty: 30 RF: 5 Multaq 400 mg tablet 400 mg PO BID Qty: 60 RF: 5 benzonatate 100 mg Capsule 100 mg PO TID PRN (Reason: Cough) RF: 0 prednisone 5 mg Tablet 5 mg PO DAILY RF: 0 albuterol sulfate 90 mcg/actuation aerosol powdr breath activated 1 inh inhalation Q4-6H PRN (Reason: asthma) Qty: 2 RF: 0 hydrocortisone [Anti-Itch (HC)] 1 % cream 1 appl topical BID PRN (Reason: skin irritation) 30 Days Qty: 28.35 RF: 1 rosuvastatin 5 mg tablet 5 mg PO DAILY 90 Days Qty: 90 RF: 3 budesonide 0.5 mg/2 mL suspension for nebulization 0.5 mg inhalation BID RF: 0 buspirone 5 mg tablet 5 mg PO BID PRN (Reason: Anxiety) RF: 0
[2021-02-07 16:12] LABS: Anion Gap 18 (12-20); Blood Urea Nitrogen 26 mg/dL (9-16); Calcium 9.3 mg/dL (8.4-10.2); Carbon Dioxide 23 mmol/L (22-29); Chloride 104 mmol/L (96-108); Creatinine Clr Calc Pharmacy 38.6; Estimated Glomerular Filt Rate 40; Glucose Random 199 mg/dL (60-115); Potassium 4.6 mmol/L (3.3-5.1); Sodium 140 mmol/L (135-145)
[2021-02-07] MEDS: Magnesium Sulfate/H2O 2 GM/50 ML PIGGYBACK IV (17:04)
[2021-02-07] MEDS: methylPREDNISolone Sod Succ 125 MG/2 ML VIAL IVPUSH (17:04)
[2021-02-07] MEDS: Benzonatate 100 MG CAPSULE PO (17:04)
[2021-02-07 17:49] LABS: B Type Natriuretic Peptide 93 pg/mL (<100); Influenza A PCR NEGATIVE (Negative); Influenza B PCR NEGATIVE (Negative); Resp Syncy Virus RNA Qual PCR NEGATIVE (Negative); SARS COV2 PCR INHOUSE NEGATIVE (Negative); Troponin-I High Sensitivity < 3.5 ng/L (<3.5-17.0)
[2021-02-07] MEDS: Albuterol Sulfate (0.083%) 2.5 MG/3 ML VIAL.NEB 10 MG INHALE (18:13)
[2021-02-07 18:14] VITALS: PULSE 83; O2SAT 93
[2021-02-07 19:09] VITALS: BP 119/53; PULSE 87; RESP 22; TEMP 36.6; O2SAT 98
--- NOTE | 2021-02-07 21:06 | PM.IMHP ---
History of Present Illness Date of Service: 02/07/21 Chief Complaint: Shortness of breath 70-year-old female with past medical history of asthma, HLD, HTN, hypothyroidism, paroxysmal AFib presents the hospital with complaints of shortness of breath as well as cough. Patient reports that her symptoms started on the 5th, have worsened, coughing, no sputum production, no fever, no chills, no sick contacts or recent travel. She has significant wheezing, tried her inhalers at home with no relief. Decided to come to the ED for management of her asthma exacerbation. Has severe symptoms at bedtime as well. On arrival to the ED hemodynamically stable with no significant abnormal vitals Labs are significant for 9.3, hemoglobin of 12.3, otherwise unremarkable. COVID-19 influenza A/B and RSV negative. Chest x-ray shows no significant change since 421. Diffuse bronchial vascular prominent markings and bronchial thickening consistent with known history of bronchial asthma. No superimposed airspace consolidation Patient received IV Solu-Medrol, multiple breathing treatments, Mag sulfate with no relief of her shortness of breath or wheezing and therefore will be admitted for further management of her asthma exacerbation Review of Systems Review of Systems: Yes all other systems are reviewed and are negative [facility] Medical History Asthma Chronic allergic rhinitis Dyslipidemia Eosinophilia HTN (hypertension) Hypothyroidism Paroxysmal atrial fibrillation Pneumonia Steroid dependent Family History Father Medical history unknown Mother Medical history unknown Surgical History History of knee surgery History of nasal polypectomy History of shoulder surgery History of tubal ligation Social History Household Members: None Housing: Apartment Alcohol intake: never Smoking Status: Never smoker Tobacco Type: Cigarette Smoked in Last 30 Days: No Use of substances other than those prescribed or required for medical reasons: No Advance Directives: Yes Advance Directives on File: Yes Advance Directives Date on File: 11/10/20 service: No Current occupational status: retired Meds Allergies Allergy/AdvReac Type Severity Reaction Status Date / Time acetaminophen Allergy Unknown vomitting Verified 02/04/21 11:07 [Tylenol-Codeine #3] atorvastatin [Lipitor] Allergy Unknown nausea Verified 02/04/21 11:07 levofloxacin [From LEVAQUIN] Allergy Unknown RASH SOB, Verified 02/04/21 11:07 DIZZYNESS codeine [CODEINE] AdvReac Unknown NAUSEA & Verified 02/04/21 11:07 VOMITING morphine [MORPHINE] AdvReac Unknown NAUSEA & Verified 02/04/21 11:07 VOMITING pravastatin AdvReac Unknown myalgia Verified 02/04/21 11:07 Home Medications Medication Instructions Recorded Confirmed Last Taken Type loratadine 1 tab PO DAILY 02/07/21 02/07/21 Unknown History Physical Exam Vital Signs and Narrative: Vital Signs: Last Vital Signs Temp 97.8 F 02/07/21 19:09 Pulse 87 02/07/21 19:09 Resp 22 H 02/07/21 19:09 BP 119/53 L 02/07/21 19:09 Pulse Ox 98 02/07/21 19:09 Body Mass Index 30.4 Const: General: cooperative and no acute distress Orientation/consciousness: patient oriented x3 Eyes: General: appearance normal, both eyes and all related structures Resp: Other: Wheezing, cough Effort & Inspection: normal respiratory effort and able to speak in complete sentences Cardio: Rate: regular rate Rhythm: regular rhythm GI: Palpation (GI): Soft to palpation Auscultation: normal bowel sounds Skin: General skin exam: no rashes or lesions noted Neuro: General: patient oriented x3 Cognition (Neuro): normal cognition Extrem: General: Yes normal to inspection and Yes no pedal edema Results Labs CBC and Chem 7: 02/07/21 15:43 02/07/21 15:43 Labs: Laboratory Results - last 24 hr 02/07/21 02/07/21 02/07/21 15:43 15:43 15:43 MCV 86.7 MCH 26.7 L MCHC 30.8 L RDW 14.6 Plt Count 379 MPV 9.3 L Immature Gran % (Auto) 0.3 Neut % (Auto) 81.1 H Lymph % (Auto) 13.4 L [place] % (Auto) 3.2 Eos % (Auto) 1.2 Baso % (Auto) 0.8 Lymph # (Auto) 1.3 [place] # (Auto) 0.3 Eos # (Auto) 0.1 Baso # (Auto) 0.1 Abs Immat Gran (auto) 0.03 Absolute Neuts (auto) 7.6 Absolute Nucleated RBC 0.000 Nucleated RBC % (auto) 0.0 Hold Purple Top SEE NOTE Anion Gap 18 Estim Creat Clear Calc 38.6 Estimated GFR 40 Random Glucose 199 H D Calcium 9.3 Troponin I High Sens B-Natriuretic Peptide Coronavirus (PCR) Influenza Type A (PCR) Influenza Type B (PCR) RSV RNA Qual (PCR) 02/07/21 02/07/21 16:54 16:54 MCV MCH MCHC RDW Plt Count MPV Immature Gran % (Auto) Neut % (Auto) Lymph % (Auto) [place] % (Auto) Eos % (Auto) Baso % (Auto) Lymph # (Auto) [place] # (Auto) Eos # (Auto) Baso # (Auto) Abs Immat Gran (auto) Absolute Neuts (auto) Absolute Nucleated RBC Nucleated RBC % (auto) Hold Purple Top Anion Gap Estim Creat Clear Calc Estimated GFR Random Glucose Calcium Troponin I High Sens < 3.5 D B-Natriuretic Peptide 93 Coronavirus (PCR) NEGATIVE Influenza Type A (PCR) NEGATIVE Influenza Type B (PCR) NEGATIVE RSV RNA Qual (PCR) NEGATIVE Imaging Radiologist's Impressions: Impressions Chest X-Ray 02/07/21 16:09 IMPRESSION: No significant change since 01/04/2021. Diffuse bronchovascular prominent markings and bronchial thickening are consistent with known history of bronchial asthma. No superimposed airspace consolidation. Assessment and Plan (1) Asthma with acute exacerbation: Qualifiers: Asthma persistence: persistent Asthma severity: severe Qualified Code(s): J45.51 - Severe persistent asthma with (acute) exacerbation Status: Acute 70-year-old female with history of asthma presents to hospital complaining of shortness of breath # acute asthma exacerbation - chest x-ray negative for pneumonia, COVID-19 negative - will start her on IV Solu-Medrol, DuoNeb p.r.n. and scheduled - follow symptoms - no hypoxia # hypertension - stable - continue home medication # hypothyroidism - continue levothyroxine # paroxysmal AFib - continue apixaban # HLD - continue statin DVT prophylaxis: Eliquannamaria
--- NOTE | 2021-02-07 21:24 | PC.NURSE ---
report given, pt ready for transport.
[2021-02-07 22:00] VITALS: BP 158/74; PULSE 89; RESP 20; TEMP 36.1; O2SAT 97
[2021-02-07] MEDS: 0.9 % Sodium Chloride Flush 3 ML SYRINGE IVFLUSH (23:11)
[2021-02-07 23:21] VITALS: BP 126/58; PULSE 80; RESP 18; TEMP 36.1; O2SAT 98
[2021-02-08] VITALS (11 sets, daily range): BP systolic 126–152; BP diastolic 60–74; PULSE 69–95; RESP 14–21; TEMP 35.9–36.4; O2SAT 96–99
[2021-02-08] MEDS: methylPREDNISolone Sod Succ 40 MG/ML VIAL IVPUSH ×2 (06:08→17:11)
[2021-02-08] MEDS: guaiFENesin DM 100/10/5 ML 5 ML SYRUP PO (06:30)
[2021-02-08 06:36] LABS: Basophils Percent Auto 0.1 % (0-2); Hematocrit 39.2 % (37-47); Imm Gran Abs Auto 0.06 X10*3/uL (0.00-0.03); Imm Gran Pct Auto 0.9 % (0.0-0.4); Lymphocytes Absolute Auto 0.6 X10*3/uL (1.2-4.9); Lymphocytes Percent Auto 9.1 % (20-40); MANUAL DIFF FLAG SCAN; Mean Corpuscular HGB Conc 30.6 g/dl (31.0-35.0); Mean Corpuscular Hemoglobin 26.5 pg (27.0-33.0); Mean Corpuscular Volume 86.5 fL (80-98); Mean Platelet Volume 9.5 fL (9.4-12.3); Monocytes Absolute Auto 0.1 X10*3/uL (0.1-1.2); Monocytes Percent Auto 0.7 % (2-11); Neutrophils Percent Auto 89.2 % (45-73); Platelet Count 386 X10*3/uL (160-400); Red Blood Count 4.53 X10*6/uL (4.20-5.50); Red Cell Distribution Width 14.8 % (11.0-16.0); SCAN SMEAR FLAG 1; White Blood Count 6.7 X10*3/uL (4.8-10.8)
[2021-02-08 06:38] LABS: Anion Gap 14 (12-20); Blood Urea Nitrogen 23 mg/dL (9-16); Calcium 9.4 mg/dL (8.4-10.2); Carbon Dioxide 24 mmol/L (22-29); Chloride 109 mmol/L (96-108); Creatinine Clr Calc Pharmacy 56.7; Estimated Glomerular Filt Rate > 60; Glucose Random 123 mg/dL (60-115); Potassium 5.5 mmol/L (3.3-5.1); Sodium 141 mmol/L (135-145)
[2021-02-08 07:07] LABS: SLIDE REVIEW VERIFIED
[2021-02-08] MEDS: Omeprazole 20 MG CAPSULE.DR PO (07:38)
[2021-02-08] MEDS: 0.9 % Sodium Chloride Flush 3 ML SYRINGE IVFLUSH ×3 (07:38→20:41)
[2021-02-08] MEDS: Levothyroxine Sodium 25 MCG TABLET PO (07:38)
[2021-02-08] MEDS: Albuterol/Iprat 2.5/0.5MG 3 ML AMPUL.NEB INHALE ×4 (07:39→20:18)
[2021-02-08] MEDS: Dronedarone HCl 400 MG TABLET PO ×2 (08:23→20:41)
[2021-02-08] MEDS: dilTIAZem HCL CD 120 MG CAP.ER.DEG PO (08:23)
[2021-02-08] MEDS: Loratadine 10 MG TABLET PO (08:23)
[2021-02-08] MEDS: Apixaban 5 MG TABLET PO ×2 (08:23→20:41)
--- NOTE | 2021-02-08 09:04 | MHC.CM.PN ---
PATIENT LIVES ALONE. NO DME OR VNA SERVICES. SHE DOES HAVE RN VISITS [id number] FOR ASSESSMENT OF ANY NEEDS. PATIENT ALSO PARTICIPATES IN VIRTUAL MENTAL HEALTH VISITS NEEDED. SHE HAS [employer]DEQUATE SUPPLY OF HER INHALERS IN THE HOME. CASE MANAGEMENT FOLLOWING FOR ANY DISCHARGE NEEDS. DIONE 02/08 IN CHART
--- NOTE | 2021-02-08 09:39 | HO.PM.IMPN ---
Subjective Subjective Date of Service: 02/08/21 Interval History: Seen in follow-up for asthma exacerbation. She feels better today. Review of Systems Gen: no fever Resp: no sob, no cough, +wheezing CV: no chest, no BELL, no leg edema GI: No n/v, no abd pain Neuro: No confusion Physical Exam Vital Signs: Vital Signs: Last Vital Signs Temp 97.6 F 02/08/21 07:55 Pulse 76 02/08/21 08:23 Resp 14 02/08/21 07:55 BP 135/74 02/08/21 08:23 Pulse Ox 98 02/08/21 07:55 Body Mass Index 30.4 Const: Other: General: AO X 3, no acute distress Resp: wheezing throught, CVS: S1,S2,RRR GI: +BS, NT, no distention Skin: No rash Neuro: motor grossly intact Psych: appropriate affect Objective Data Current Medications Generic Name Dose Route Start Last Admin Trade Name Freq PRN Reason Stop Dose Admin Acetaminophen 650 mg 02/07/21 21:42 Acetaminophen 325 Mg Tablet PO Q6H PRN Pain, Mild (Pain Scale 1-3) Albuterol/Ipratropium 3 ml 02/08/21 08:00 02/08/21 07:39 Albuterol/Iprat 2.5/0.5mg 3 Ml Ampul.Neb INHALE 3 ml RQ4H WHILE AWAKE THANH Administration Albuterol/Ipratropium 3 ml 02/07/21 21:42 Albuterol/Iprat 2.5/0.5mg 3 Ml Ampul.Neb INHALE Q4H PRN Shortness of Breath/Wheezing Apixaban 5 mg 02/08/21 09:00 02/08/21 08:23 Apixaban 5 Mg Tablet PO 5 mg BID THANH Administration Diltiazem HCl 120 mg 02/08/21 09:00 02/08/21 08:23 Diltiazem Hcl Cd 120 Mg Cap.Er.Deg PO 120 mg DAILY THANH Administration Protocol Docusate Sodium 100 mg 02/07/21 21:42 Docusate Sodium 100 Mg Capsule PO DAILY PRN Constipation Dronedarone 400 mg 02/08/21 09:00 02/08/21 08:23 Dronedarone Hcl 400 Mg Tablet PO 400 mg BID THANH Administration Guaifenesin/Dextromethorphan 5 ml 02/08/21 06:12 02/08/21 06:30 Guaifenesin Dm 100/10/5 Ml 5 Ml Syrup PO 5 ml Q6H PRN Administration Cough Levothyroxine Sodium 25 mcg 02/08/21 06:30 02/08/21 07:38 Levothyroxine Sodium 25 Mcg Tablet PO 25 mcg DAILY@0600 THANH Administration Loratadine 10 mg 02/08/21 09:00 02/08/21 08:23 Loratadine 10 Mg Tablet PO 10 mg DAILY THANH Administration Methylprednisolone Sodium Succinate 40 mg 02/08/21 06:00 02/08/21 06:08 Methylprednisolone Sod Succ 40 Mg/Ml Vial IVPUSH 40 mg Q12H THANH Administration Non-Formulary Medication 5 mg 02/08/21 09:00 Rosuvastatin PO DAILY [facility] Omeprazole 20 mg 02/08/21 06:30 02/08/21 07:38 Omeprazole 20 Mg Capsule. PO 20 mg DAILY@0630 THANH Administration Ondansetron HCl 4 mg 02/07/21 21:42 Ondansetron Hcl 4 Mg/2 Ml Vial IVPUSH Q8H PRN Nausea and Vomiting Sodium Chloride 3 ml 02/08/21 00:00 02/08/21 07:38 0.9 % Sodium Chloride Flush 3 Ml Syringe IVFLUSH 3 ml QSHIFT THANH Administration Labs CBC & Chem 7: 02/08/21 05:56 02/08/21 05:56 Assessment and Plan (1) Asthma with acute exacerbation: Status: Acute Assessment and Plan: 70-year-old female with history of asthma presents to hospital complaining of shortness of breath # acute asthma exacerbation - chest x-ray negative for pneumonia, COVID-19 negative, she is improving but not optimal yet - IV Solu-Medrol for 1 more day then switched to p.o. prednisone tomorrow -continue bronchodilators by nebulizer # hypertension - stable - continue home medication # hypothyroidism - continue levothyroxine # paroxysmal AFib - continue apixaban # HLD - continue statin She should be able to go home tomorrow. DVT prophylaxis: Romero
[2021-02-09 03:34] VITALS: BP 129/59; PULSE 74; RESP 20; TEMP 36.4; O2SAT 97
[2021-02-09] MEDS: Omeprazole 20 MG CAPSULE.DR PO (05:43)
[2021-02-09] MEDS: Levothyroxine Sodium 25 MCG TABLET PO (05:43)
[2021-02-09] MEDS: methylPREDNISolone Sod Succ 40 MG/ML VIAL IVPUSH (05:43)
[2021-02-09] MEDS: Albuterol/Iprat 2.5/0.5MG 3 ML AMPUL.NEB INHALE (07:46)
[2021-02-09 07:47] VITALS: PULSE 71; O2SAT 99
[2021-02-09 07:56] VITALS: BP 132/80; PULSE 86; RESP 18; TEMP 36.1; O2SAT 100
[2021-02-09] MEDS: 0.9 % Sodium Chloride Flush 3 ML SYRINGE IVFLUSH (09:17)
[2021-02-09] MEDS: Dronedarone HCl 400 MG TABLET PO (09:17)
[2021-02-09] MEDS: dilTIAZem HCL CD 120 MG CAP.ER.DEG PO (09:17)
[2021-02-09] MEDS: Apixaban 5 MG TABLET PO (09:17)
[2021-02-09] MEDS: Loratadine 10 MG TABLET PO (09:17)
--- NOTE | 2021-02-09 09:56 | PM.DS ---
DS: Providers Provider Date of Service: 02/09/21 Date of admission: 02/07/21 20:41 Primary care physician: Unknown Physician DS: Diagnosis Discharge Diagnosis (1) Asthma with acute exacerbation: Status: Acute (2) HTN (hypertension): Status: Acute (3) Paroxysmal atrial fibrillation: Status: Acute DS: Medications Discharge Medications Home Medications: Home Medications Medication Instructions Recorded Confirmed loratadine 1 tab PO DAILY 02/07/21 02/07/21 Previous Rx's Medication Instructions Recorded omeprazole 20 mg capsule,delayed 20 mg PO DAILY 90 Days #90 cap 11/10/20 release albuterol sulfate 1 inh INHALATION Q4-6H PRN #2 ea 01/06/21 levothyroxine 25 mcg tablet 25 mcg PO DAILY 90 Days #90 tab 01/08/21 rosuvastatin 5 mg tablet 5 mg PO DAILY 90 Days #90 tab 01/14/21 albuterol sulfate 2.5 mg INHALATION Q4H PRN #180 ml 01/28/21 apixaban 5 mg tablet 5 mg PO BID #60 tab 01/30/21 diltiazem HCl 120 mg 120 mg PO DAILY #30 cap 01/30/21 capsule,extended release 24 hr dronedarone 400 mg tablet 400 mg PO BID #60 tab 01/30/21 dextromethorphan-guaifenesin 5 ml PO Q6H PRN #237 ml 02/09/21 prednisone 40 mg PO DAILY #10 tab 02/09/21 DS: Summary Hospital Course Hospital Course: Patient was admitted for acute asthma exacerbation. She was treated with systemic steroids and scheduled bronchodilators as well as supportive care with expectorant. Over the course of 2 days in the hospital, her symptoms improved and her wheezing resolved. She will be discharged home with 5 more days of prednisone and to continue her usual inhalers/bronchodilators at home. Time Spent with Patient Time attestation: Total time spent providing and/or coordinating discharge services: Discharge coordination time: Greater than 30 minutes Physical Exam Vital Signs: Vital Signs: Last Vital Signs Temp 97.0 F 02/09/21 07:56 Pulse 86 02/09/21 07:56 Resp 18 02/09/21 07:56 BP 132/80 02/09/21 07:56 Pulse Ox 100 02/09/21 07:56 Body Mass Index 30.4 Const: Other: General - no acute distress, appears comfortable Cardiovascular - regular rate and rhythm, S1-S2 Lungs - normal respiratory effort, clear to auscultation bilaterally, no wheezing Abdomen - soft, nontender, no rebound or guarding Extremities - no edema bilaterally Neuro - awake and alert, no focal deficits DS: Data Data Completed and Pending Labs on day of discharge: Laboratory Results - last 24 hr 02/09/21 08:22 Potassium 5.0 Discharge Plan Discharge Patient Disposition: Home, Self-Care Referrals: Physician,Unknown [Primary Care Provider] - 1 Week Discharge Medications: New dextromethorphan-guaifenesin 10-100 mg/5 mL Syrup 5 ml PO Q6H PRN (Reason: Cough) Qty: 237 RF: 0 prednisone 20 mg tablet 40 mg PO DAILY Qty: 10 RF: 0 Continued omeprazole 20 mg capsule,delayed release(DR/EC) 20 mg PO DAILY 90 Days Qty: 90 RF: 3 levothyroxine 25 mcg tablet 25 mcg PO DAILY 90 Days Qty: 90 RF: 1 albuterol sulfate 2.5 mg /3 mL (0.083 %) solution for nebulization 2.5 mg inhalation Q4H PRN (Reason: shortness of breath or wheezing) Qty: 180 RF: 3 Eliquis 5 mg tablet 5 mg PO BID Qty: 60 RF: 5 diltiazem HCl [Cardizem CD] 120 mg capsule,extended release 24hr 120 mg PO DAILY Qty: 30 RF: 5 Multaq 400 mg tablet 400 mg PO BID Qty: 60 RF: 5 albuterol sulfate 90 mcg/actuation aerosol powdr breath activated 1 inh inhalation Q4-6H PRN (Reason: asthma) Qty: 2 RF: 0 loratadine 10 mg tablet 1 tab PO DAILY RF: 0 rosuvastatin 5 mg tablet 5 mg PO DAILY 90 Days Qty: 90 RF: 3 Discharge Orders: Discharge Order (Routine); Ordered 02/09/21 Ordered By: Raheem Treadwell Diet: advance to usual diet Activity on Discharge: As tolerated Stand Alone Forms: Patient Portal Discharge page Care Plan Goals: To stay healthy and out of the hospital. Health Concerns: Asthma Plan of Treatment: Take Prednisone for 5 more days. Continue your other asthma medications Assessment: 70 yo F admitted for asthma. Treated with steroids and updrafts.
--- NOTE | 2021-02-09 10:39 | MHC.CM.PN ---
nurse care mNAger note electronic medical record reviewed along with case discusson multiple discilinary rounds. discharge plan to be discharged home no services , discharge plan -NO DME OR VNA SERVICES. no vna orderds written SHE DOES HAVE RN VISITS [id number] FOR ASSESSMENT OF ANY NEEDS. PATIENT ALSO PARTICIPATES IN VIRTUAL MENTAL HEALTH VISITS NEEDED. SHE HAS ADEQUATE SUPPLY OF HER INHALERS IN THE HOME.
== END 2021-02-09 11:31 | disposition home or self-care (01) ==
LOC: HO.ED 19:38 → HO.S3 21:08
PROVIDERS: Admitting Provider Internal Medicine; Emergency Provider Emergency Medicine; PCP Internal Medicine; Visit Provider Family Medicine
DX: J45.31 Mild persistent asthma with (acute) exacerbation (principal); J44.9 Chronic obstructive pulmonary disease, unspecified; E03.9 Hypothyroidism, unspecified; I48.0 Paroxysmal atrial fibrillation; E78.5 Hyperlipidemia, unspecified; R06.00 Dyspnea, unspecified; I51.7 Cardiomegaly; I10 Essential (primary) hypertension; R94.31 Abnormal electrocardiogram [ECG] [EKG]; E78.00 Pure hypercholesterolemia, unspecified; Z88.1 Allergy status to other antibiotic agents; Z20.822 Contact with and (suspected) exposure to COVID-19; Z98.51 Tubal ligation status; Z79.52 Long term (current) use of systemic steroids; Z79.899 Other long term (current) drug therapy
CPT/HCPCS: 0241U; 36415; 71045; 80048; 83880; 84132; 84484; 85025; 93005; 94640; 94644; 96365; 96366; 96374; 96375; 99218; 99285; J2920; J2930; J3475

== ENCOUNTER → 2021-02-16 09:02 | Outpatient (REF) | payer MEDICARE, SELFPAY ==
--- NOTE | 2021-02-16 09:10 | ECG_ITS ---
Hook-up date: 2021-02-16 10:08:00 Duration: 28:16:00 Test Indications: I48.0 - Paroxysmal atrial fibri Medications: ATRIAL FIBRILLATION 83308 QRS complexes 5 Ventricular ectopics which represent <1 % of total QRS comp. 33 Supraventricular ectopics which represent <1 % of total QRS comp. * Paced QRS complexs which represent % of total QRS comp. VENTRICULAR ECTOPY 5 Isolated 0 Bigeminal Cycles 0 Couplets 0 Runs 0 Beats in Runs * Beats LONGEST at * BPM at :: -- * Beats FASTEST at * BPM at :: -- SUPRAVENTRICULAR ECTOPY 19 Isolated 3 Couplets 1 Runs 8 Beats in Runs 8 Beats LONGEST at 151 BPM at 13:57:03 2021-02-16 8 Beats FASTEST at 151 BPM at 13:57:03 2021-02-16 HEART RATES 51 MIN at 05:10:48 2021-02-17 79 AVG 127 MAX at 12:11:08 2021-02-16 LONGEST RR 1.2480 secs at 00:39:03 2021-02-17 S-T LEVELS Channel 1 - 128 mm at 10:08:00 2021-02-16 - 128 mm at 10:08:00 2021-02-16 Channel 2 - 128 mm at 10:08:00 2021-02-16 - 128 mm at 10:08:00 2021-02-16 Channel 3 - 128 mm at 02:92:71 -- - 128 mm at 02:92:71 Basic rhythm Normal sinus rhythm No long pause or profound bradycardia No sustained Atrial fibrillation Rare Premature atrial complexes Patient did not report any symptoms in the diary Referred By: Alexandro Cortés Overread By: ALEXANDRO CORTÉS MD
== END ==
LOC: HO.CARD 09:02
PROVIDERS: Visit Provider Nurse Practitioner Family
DX: I48.0 Paroxysmal atrial fibrillation (principal); J44.1 Chronic obstructive pulmonary disease with (acute) exacerbation; J45.901 Unspecified asthma with (acute) exacerbation
CPT/HCPCS: 93225; 93226

== ENCOUNTER 2021-02-17 08:57 | Outpatient (REF) | payer MEDICARE, SELFPAY ==
--- NOTE | 2021-02-17 17:40 | PFT_ITS ---
Forced vital capacity, FEV1, [id number] and MVV are normal. Post bronchodilator therapy, there is no change. Total lung capacity normal. Residual volume moderately decreased. Diffusion capacity normal. CONCLUSION: Normal pulmonary function test. No evidence of obstructive or restrictive pulmonary disease. Wes Christensen MD MSB/MODL / [id number]
== END 2021-02-17 08:58 | disposition home or self-care (01) ==
LOC: HO.RESP 08:57
PROVIDERS: PCP Internal Medicine; Visit Provider Hospitalist
DX: J45.50 Severe persistent asthma, uncomplicated (principal); J44.9 Chronic obstructive pulmonary disease, unspecified; Z87.891 Personal history of nicotine dependence
CPT/HCPCS: 94060; 94727; 94729; 99212

== ENCOUNTER → 2021-03-10 12:14 | Outpatient (BNVA) | payer MEDICARE, SELFPAY | PROVIDERS: PCP Internal Medicine; Visit Provider Nurse Practitioner Family | DX: I48.0 Paroxysmal atrial fibrillation (principal); I10 Essential (primary) hypertension; E78.5 Hyperlipidemia, unspecified | CPT/HCPCS: 99212 ==

== ENCOUNTER → 2021-03-25 07:47 | Outpatient (REF) | payer MEDICARE, SELFPAY ==
--- NOTE | ~2021-03-25 | NM_ITS ---
Myocardial perfusion study Indication: Shortness of breath evaluate for myocardial ischemia Technique: The patient was brought in for a Lexiscan perfusion study on 03/25/2021. Patient performed low-level exercise and was injected 0.4 mg of Lexiscan intravenously. Within a minute of injection, 25 mCi of sestamibi was given intravenously. Images were obtained using the SPECT gamma camera interlaced with the gating device. Images were obtained in supine position. Resting perfusion study was performed on 03/27/2021. Patient was administered 25 mCi of sestamibi intravenously at rest. Images were then obtained in supine position. Images obtained with and without CT attenuation. Total DLP 102 mGy-m.. Images were processed with the software and compared side to side in short axis, horizontal long axis and vertical long axis views. Findings: The stress perfusion study showed nonattenuated images show minimal thinning of the distal lateral wall of the LV myocardium. Attenuation corrected images show mildly reduced uptake in the apex of the LV myocardium.. The gated study shows normal LV systolic function with calculated LVEF of 66%. LV cavity is normal in size. The gated study shows normal systolic wall thickening and contraction of segments. Resting study shows no change in perfusion pattern compared to stress perfusion study. Gating at rest reveals normal cyst colic wall motion with visually estimated ejection fraction at greater than 60 %. The findings are consistent with normal myocardial perfusion. NM/NM maxx perf SPECT rest & str Impression: 1. Myocardial perfusion imaging study shows normal myocardial perfusion 2. Gated LVEF is 66% 3. Transient ischemic dilatation not present EKG is nondiagnostic for ischemia
--- NOTE | 2021-03-25 07:53 | CA_ITS ---
Acquisition Time: 2021-03-25 08:16:47 Total Exercise Time: 00:02:00 Test Indications: Abnormal ECG Medications: MULTAQ ELIQUIS DILTIAZEM Protocol: LEXISCAN Max HR: 125 BPM 83% of Pred: 149 BPM Max BP: 160/070 mmHG Max Work Load: 1.6 METS Pharmcological stress test with Lexiscan injection, while walking on treadmill, without anginal symptoms, without arrythmia, with normotensive response to injection, with nondiagnostic EKG for ischemia. Nuclear images pending. Test reviewed with Dr Bermudez. Referred By: Alexandro Cortés Overread By: SHARON CHOI
[2021-03-25 09:05] LABS: Alanine Aminotransferase 7 U/L (0-31); Albumin Level 4.2 g/dL (3.5-5.0); Alkaline Phosphatase 70 U/L (39-117); Anion Gap 15 (12-20); Aspartate Amino Transferase 15 U/L (5-31); Bilirubin Total 0.5 mg/dL (0.0-1.0); Blood Urea Nitrogen 20 mg/dL (9-16); Calcium 9.4 mg/dL (8.4-10.2); Carbon Dioxide 26 mmol/L (22-29); Chloride 106 mmol/L (96-108); Cholesterol 279 mg/dL; Estimated Glomerular Filt Rate 52; Glucose Fasting 86 mg/dL (60-99); HDL Cholesterol 65 mg/dL; LDL Cholesterol Calculated 189 mg/dl; Potassium 4.8 mmol/L (3.3-5.1); Sodium 142 mmol/L (135-145); Triglycerides 125 mg/dL
[2021-03-25 09:28] LABS: Thyroid Stimulating Hormone 1.49 uIU/mL (0.32-4.0)
[2021-03-28 20:37] LABS: Vitamin D 25-OH, D2 <4 ng/mL; Vitamin D 25-OH, D3 27 ng/mL; Vitamin D 25-OH, Total 27 ng/mL (30-100)
== END ==
LOC: HO.CARD 07:47
PROVIDERS: Internal Medicine; Visit Provider Nurse Practitioner Family
DX: I48.0 Paroxysmal atrial fibrillation (principal); J44.1 Chronic obstructive pulmonary disease with (acute) exacerbation; J45.901 Unspecified asthma with (acute) exacerbation; E55.9 Vitamin D deficiency, unspecified; E78.5 Hyperlipidemia, unspecified; E03.9 Hypothyroidism, unspecified
CPT/HCPCS: 36415; 78452; 80053; 80061; 82306; 84443; 93017; A9500; J0280; J2785

== ENCOUNTER → 2021-03-25 11:16 | Outpatient (REF) | payer MEDICARE, SELFPAY | LOC: HO.SL 11:16 | PROVIDERS: PCP Internal Medicine; Visit Provider Nurse Practitioner Family | DX: J44.1 Chronic obstructive pulmonary disease with (acute) exacerbation (principal); J45.901 Unspecified asthma with (acute) exacerbation; I48.0 Paroxysmal atrial fibrillation | CPT/HCPCS: 95806 ==

== ENCOUNTER 2021-04-04 11:15 | Observation (INO) | payer OTHER, SELFPAY ==
[2021-04-04] VITALS (9 sets, daily range): BP systolic 116–163; BP diastolic 56–71; PULSE 84–105; RESP 16–20; TEMP 36–36.6; O2SAT 94–100; BMI 30.4
--- NOTE | ~2021-04-04 | XR_ITS ---
EXAMINATION: XR CHEST CLINICAL INFORMATION: Shortness of breath COMPARISON: Chest x-ray on 02/07/2021 TECHNIQUE: Frontal view of the chest was obtained. FINDINGS: The cardiac silhouette is normal. There is mild diffuse bronchial wall thickening. There are no areas of consolidation. There are no pleural effusions or pneumothoraces. The bones and soft tissues are unremarkable for the patient's age. XR/XR chest 1V IMPRESSION: No significant change. Wall thickening consistent with patient's known history of reactive airways disease.
--- NOTE | 2021-04-04 11:19 | ECG_ITS ---
Test Reason : DIFICULTY BREATHING Blood Pressure : / mmHG Vent. Rate : 087 BPM Atrial Rate : 087 BPM P-R Int : 142 ms QRS Dur : 084 ms QT Int : 364 ms P-R-T Axes : 045 -14 016 degrees QTc Int : 438 ms Normal sinus rhythm Voltage criteria for left ventricular hypertrophy Possible Inferior infarct (cited on or before 06-JAN-2021) Abnormal ECG When compared with ECG of 07-FEB-2021 16:17, Nonspecific T wave abnormality now evident in Anterior leads Referred By: Macarena Reyes Electronically Signed By:GIFTY NEAL MD
--- NOTE | 2021-04-04 11:42 | ED.ASTHMA ---
HPI - Asthma General Chief Complaint: Upper Respiratory Symptoms Stated Complaint: SOB Time Seen by Provider: 04/04/21 11:19 Source: patient and EMS Mode of arrival: EMS Limitations: language barrier ( Setswana-speaking) History of Present Illness HPI Narrative: 70-year-old female with a past medical history of asthma, COPD who is currently on daily 5 mg prednisone, allergic rhinitis, hypothyroidism, hypertension, hyperlipidemia, atrial fibrillation currently on Coumadin and GERD presenting to the ED via EMS with complaints of dry cough c associated wheezing and chest tightness x 1 week worse today despite using her daily 5 mg prednisone, inhalers and duonebs at home. [facility] although reports no symptomatic relief. patient was noted to have a macular erythematous blanchable rash to her lower extremities and she reported that her legs were dried yesterday and she use a baby oil and she developed a rash shortly after that only in that area where she placed the baby oil. She denies any fevers, changes in vision, dizziness, headaches, neck pain/ stiffness, dyspnea on exertion, orthopnea, palpitations, nausea/vomiting/ diarrhea /constipation, abdominal pain, back pain, lower extremity edema or calf tenderness, recent travel or sick contacts or any other symptoms complaints or concerns at this time. She denies being vaccinated for COVID. She reports she has never been intubated. Although has been hospitalized in the past for asthma. MD complaint: asthma attack and wheezing Onset (ago): week(s) ( One week worse today) Severity: severe and similar to prior Context: none known Associated symptoms: dry cough Asthma History: childhood onset, history of frequent attacks, history of prior ED visit and followed by specialist Treatments Prior to Arrival: inhaled bronchodilator and inhaled steroid Related Data Current Asthma Therapy: inhaled bronchodilator, inhaled steroid and recent oral steroid Home Medications Medication Instructions Recorded Confirmed loratadine 1 tab PO DAILY 02/07/21 03/11/21 aripiprazole 5 mg tablet 5 mg PO DAILY 02/17/21 03/11/21 buspirone 5 mg tablet 5 mg PO BID 02/17/21 03/11/21 escitalopram oxalate 10 mg tablet 10 mg PO DAILY 02/17/21 03/11/21 Previous Rx's Medication Instructions Recorded omeprazole 20 mg capsule,delayed 20 mg PO DAILY 90 Days #90 cap 11/10/20 release albuterol sulfate 1 inh INHALATION Q4-6H PRN #2 ea 01/06/21 levothyroxine 25 mcg tablet 25 mcg PO DAILY 90 Days #90 tab 01/08/21 rosuvastatin 5 mg tablet 5 mg PO DAILY 90 Days #90 tab 01/14/21 albuterol sulfate 2.5 mg INHALATION Q4H PRN #180 ml 01/28/21 apixaban 5 mg tablet 5 mg PO BID #60 tab 01/30/21 diltiazem HCl 120 mg 120 mg PO DAILY #30 cap 01/30/21 capsule,extended release 24 hr dronedarone 400 mg tablet 400 mg PO BID #60 tab 01/30/21 dextromethorphan-guaifenesin 5 ml PO Q6H PRN #237 ml 02/09/21 umeclidinium 62.5 mcg/actuation 1 inh INHALATION DAILY 30 Days #30 02/17/21 blister powder for inhalation ea prednisone 20 mg tablet 5 mg PO DAILY #30 tab 04/01/21 Allergies Allergy/AdvReac Type Severity Reaction Status Date / Time acetaminophen Allergy Intermediate vomitting Verified 03/11/21 10:52 [Tylenol-Codeine #3] atorvastatin [Lipitor] Allergy Intermediate nausea Verified 03/11/21 10:52 levofloxacin [From LEVAQUIN] Allergy Intermediate RASH SOB, Verified 03/11/21 10:52 DIZZYNESS sulfamethoxazole Allergy Unknown Verified 04/04/21 11:26 [From Bactrim] trimethoprim [From Bactrim] Allergy Unknown Verified 04/04/21 11:26 codeine [CODEINE] AdvReac Intermediate NAUSEA & Verified 03/11/21 10:52 VOMITING morphine [MORPHINE] AdvReac Intermediate NAUSEA & Verified 03/11/21 10:52 VOMITING pravastatin AdvReac Intermediate myalgia Verified 03/11/21 10:52 Review of Systems Review of Systems: Constitutional : denies med noncompliance, no history of PE or DVT, denies recent travel, No Fever, No Chills ENT/Mouth : No Hoarseness, No sore throat, No Rhinorrhea Eyes: No Redness, No Discharge, No Vision Changes Cardiovascular : No Chest Pain, No SOB, No Dyspnea on Exertion, No Edema, no pleurisy, Respiratory : positive dry cough with chest tightness, No Sputum, no stridor, no hemoptysis, Gastrointestinal : No Nausea, No Vomiting, No Diarrhea, No abdominal Pain Genitourinary : No Dysuria, No Hematuria Musculoskeletal : No joint pain, No Myalgias Extremities: no extremity swelling /pain Skin : Positive rash/itching, no swelling Neuro : No Weakness, No Numbness, No Headache Psych : No anxiety, depression Heme/Lymph: No Bruising, No Bleeding Endocrine : No Polyuria, No Polydipsia Yes all other systems are reviewed and are negative [facility] Past Medical History Attestation statement: The following information was validated with the patient. Medical History Asthma Chronic allergic rhinitis Dyslipidemia Eosinophilia GERD (gastroesophageal reflux disease) HTN (hypertension) Hypothyroidism Paroxysmal atrial fibrillation Pneumonia Steroid dependent Surgical History History of knee surgery History of nasal polypectomy History of shoulder surgery History of tubal ligation Family History Family History Father Medical history unknown Mother Medical history unknown Social History Social History Household Members: None Housing: Apartment Do you presently have visiting nurse or other home services: No Alcohol intake: never Patient Tobacco Use Status: Former Tobacco user Tobacco use type: Cigarette e-Cigarette/Vaping Use: Never Used Second Hand Smoke Exposure: No Use of substances other than those prescribed or required for medical reasons: No Advance Directives: Yes Advance Directives on File: Yes Advance Directives Date on File: 11/10/20 service: No Current occupational status: disabled Physical Exam Vital Signs: Vital Signs: Last Vital Signs Temp 97.8 F 04/04/21 11:27 Pulse 96 04/04/21 13:48 Resp 18 04/04/21 13:48 BP 116/56 L 04/04/21 13:48 Pulse Ox 100 04/04/21 13:48 Body Mass Index 30.4 vital signs have been reviewed as normal and appeared to be correct. Blood pressure hypertensive 163/71. Heart rate normal. Respiration rate normal. Temperature normal. Oxygen saturation normal. Appearance: Alert. Oriented X3. Mild respiratory distress. Head: Normal external exam. Normocephalic. Atraumatic. Eyes: PERRLA. EOMI. Conjunctiva and sclera normal. Eyelids normal. ENT: EAC normal. TM's Normal. Pharynx normal. Uvula midline. Moist mucous membranes. No trismus noted. No drooling noted. No muffled voice noted. Neck: Normal inspection. Neck supple. FROM. No adenopathy. Thyroid Normal. No meningeal signs. No neck mass noted. CVS: Normal heart rate and rhythm. Heart sound normal. Pulses normal throughout. No murmurs/rales/gallops. Respiratory: Mild respiratory distress with pain with inspiration with decreased breath sounds with inspiratory and expiratory wheezing and rhonchi throughout. No rales noted. Chest nontender. No accessory muscle usage noted. Abdomen: Soft and nontender. Bowel sounds normal in all 4 quadrants. No distention noted. No organomegaly noted. No visible injury noted. Back: No CVA tenderness. Full range of motion noted. No rashes/lesion/induration/fluctuance or signs of infection noted. Skin: Macular erythematous blanching rash that is pruritic to bilateral shins. no signs of infection. The rest of the Skin is warm and dry. Normal skin color. Normal skin turgor. No lesions/lacerations noted. Extremities: No lower extremity edema. No calf tenderness noted. Extremities exhibit normal range of motion. Extremities nontender. Neuro: Oriented X 3. No motor deficit. No sensory deficit. Reflexes normal. Normal steady gait. No focal neuro deficits noted. Vascular: + radial pulses/+ 2 distal pedal pulses/+2 dorsalis pedis b/l. Normal cap refill. No cyanosis noted to upper extremity nails and lower extremity toes nails. Course Course Course Narrative: 11:40 am - 70-year-old female with a past medical history of asthma, COPD who is currently on daily 5 mg prednisone, allergic rhinitis, hypothyroidism, hypertension, hyperlipidemia, atrial fibrillation currently on Coumadin and GERD presenting to the ED via EMS with complaints of dry cough c associated wheezing and chest tightness x 1 week worse today despite using her daily 5 mg prednisone, inhalers and duonebs at home. She received a [facility] although reports no symptomatic relief. Plan: Labs, chest x-ray, respiratory panel. Provide a L of IV fluids, 125 mg of Solu-Medrol, 2 g of magnesium, and an hour long breathing treatment and re-evaluate. Reevaluation(s) Reevaluation #1: - Labs returned all within normal limits. Respiratory panel negative. Chest x-ray revealed reactive airway disease no acute processes such as pneumonia noted. - Patient was given an hour long breathing treatment, 125 mg of Solu-Medrol and 2 g of magnesium and she reports she feels mild symptomatic relief although no complete symptomatic relief and is requesting to be admitted - therefore at this time will obtain blood cultures and lactic acid due to asthma/COPD exacerbation this is not sepsis. Start the patient on Rocephin and plan to admit for COPD exacerbation /bronchitis. Patient understands agrees with this plan. Time: 14:20 Reevaluation #2: - will admit for observation at this time. Time: 14:32 [facility] - Asthma Medical Records Attestation: I reviewed the patient's medical records. Lab Data Attestation: I reviewed the patient's lab results. Result diagrams: 04/04/21 11:53 04/04/21 11:53 Labs: Lab Results 04/04/21 04/04/21 04/04/21 Range/Units 11:53 11:53 11:53 WBC 9.0 (4.8-10.8) X10*3/uL RBC 4.29 (4.20-5.50) X10*6/uL Hgb 11.6 L (12.0-16.0) g/dl Hct 37.6 (37-47) % MCV 87.6 (80-98) fL MCH 27.0 (27.0-33.0) pg MCHC 30.9 L (31.0-35.0) g/dl RDW 14.6 (11.0-16.0) % Plt Count 350 (160-400) X10*3/uL MPV 8.9 L (9.4-12.3) fL Immature Gran % (Auto) 0.2 (0.0-0.4) % Neut % (Auto) 59.6 (45-73) % Lymph % (Auto) 21.5 (20-40) % [place]ule[place] % (Auto) 6.0 (2-11) % Eos % (Auto) 11.5 H (0-4) % Baso % (Auto) 1.2 (0-2) % Lymph # (Auto) 1.9 (1.2-4.9) X10*3/uL [place] # (Auto) 0.5 (0.1-1.2) X10*3/uL Eos # (Auto) 1.0 H (0.0-0.4) X10*3/uL Baso # (Auto) 0.1 (0.0-0.2) X10*3/uL Abs Immat Gran (auto) 0.02 (0.00-0.03) X10*3/uL Absolute Neuts (auto) 5.3 (2.0-8.3) X10*3/uL Absolute Nucleated RBC 0.000 (0.0-0.012) X10*3/uL Nucleated RBC % (auto) 0.0 (0.0-0.2) /100WBC PT 12.0 (9.9-13.0) SEC INR 1.1 (0.9-1.1) Sodium (135-145) mmol/L Potassium (3.3-5.1) mmol/L Chloride (96-108) mmol/L Carbon Dioxide (22-29) mmol/L Anion Gap (12-20) BUN (9-16) mg/dL Creatinine (0.5-1.4) mg/dL Estim Creat Clear Calc Estimated GFR Random Glucose (60-115) mg/dL Calcium (8.4-10.2) mg/dL Magnesium 2.1 (1.6-2.6) mg/dL Total Bilirubin (0.0-1.0) mg/dL AST (5-31) U/L ALT (0-31) U/L Alkaline Phosphatase (39-117) U/L Troponin I High Sens (<3.5-17.0) ng/L B-Natriuretic Peptide (<100) pg/mL Total Protein (6.5-8.0) g/dL Albumin (3.5-5.0) g/dL Respiratory Panel Rock Adenovirus (Rapid PCR) (Not Detect.) B.pert (TEM-PCR) (Not Detect.) B.parapertussis DNA PCR (Not Detect.) C. pneumoniae DNA (PCR) (Not Detect.) Coronavirus OC43 (PCR) (Not Detect.) Coronavirus HKU1 (PCR) (Not Detect.) Coronavirus 229E (PCR) (Not Detect.) Coronavirus NL63 (PCR) (Not Detect.) Human Metapneumovir PCR (Not Detect.) Influenza A (RT-PCR) (Not Detect.) Influenza B (RT-PCR) (Not Detect.) M. pneumoniae (PCR) (Not Detect.) Parainfluenza 1 (PCR) (Not Detect.) Parainfluenza 2 (PCR) (Not Detect.) Parainfluenza 3 (PCR) (Not Detect.) Parainfluenza 4 (PCR) (Not Detect.) RSV (PCR) (Not Detect.) Entero/Rhino (PCR) (Not Detect.) SARS-CoV-2 RNA (RT-PCR) (Not Detect.) 04/04/21 04/04/21 04/04/21 Range/Units 11:53 11:53 12:36 WBC (4.8-10.8) X10*3/uL RBC (4.20-5.50) X10*6/uL Hgb (12.0-16.0) g/dl Hct (37-47) % MCV (80-98) fL MCH (27.0-33.0) pg MCHC (31.0-35.0) g/dl RDW (11.0-16.0) % Plt Count (160-400) X10*3/uL MPV (9.4-12.3) fL Immature Gran % (Auto) (0.0-0.4) % Neut % (Auto) (45-73) % Lymph % (Auto) (20-40) % [place]ule[place] % (Auto) (2-11) % Eos % (Auto) (0-4) % Baso % (Auto) (0-2) % Lymph # (Auto) (1.2-4.9) X10*3/uL [place] # (Auto) (0.1-1.2) X10*3/uL Eos # (Auto) (0.0-0.4) X10*3/uL Baso # (Auto) (0.0-0.2) X10*3/uL Abs Immat Gran (auto) (0.00-0.03) X10*3/uL Absolute Neuts (auto) (2.0-8.3) X10*3/uL Absolute Nucleated RBC (0.0-0.012) X10*3/uL Nucleated RBC % (auto) (0.0-0.2) /100WBC PT (9.9-13.0) SEC INR (0.9-1.1) Sodium 142 (135-145) mmol/L Potassium 4.1 (3.3-5.1) mmol/L Chloride 107 (96-108) mmol/L Carbon Dioxide 26 (22-29) mmol/L Anion Gap 13 (12-20) BUN 21 H (9-16) mg/dL Creatinine 1.01 (0.5-1.4) mg/dL Estim Creat Clear Calc 50.5 Estimated GFR 54 Random Glucose 103 (60-115) mg/dL Calcium 9.2 (8.4-10.2) mg/dL Magnesium (1.6-2.6) mg/dL Total Bilirubin 0.3 (0.0-1.0) mg/dL AST 14 (5-31) U/L ALT 12 (0-31) U/L Alkaline Phosphatase 67 (39-117) U/L Troponin I High Sens < 3.5 (<3.5-17.0) ng/L B-Natriuretic Peptide 147 H (<100) pg/mL Total Protein 6.8 (6.5-8.0) g/dL Albumin 4.2 (3.5-5.0) g/dL Respiratory Panel Rock See Note Adenovirus (Rapid PCR) Not Detected (Not Detect.) B.pert (TEM-PCR) Not Detected (Not Detect.) B.parapertussis DNA PCR Not Detected (Not Detect.) C. pneumoniae DNA (PCR) Not Detected (Not Detect.) Coronavirus OC43 (PCR) Not Detected (Not Detect.) Coronavirus HKU1 (PCR) Not Detected (Not Detect.) Coronavirus 229E (PCR) Not Detected (Not Detect.) Coronavirus NL63 (PCR) Not Detected (Not Detect.) Human Metapneumovir PCR Not Detected (Not Detect.) Influenza A (RT-PCR) Not Detected (Not Detect.) Influenza B (RT-PCR) Not Detected (Not Detect.) M. pneumoniae (PCR) Not Detected (Not Detect.) Parainfluenza 1 (PCR) Not Detected (Not Detect.) Parainfluenza 2 (PCR) Not Detected (Not Detect.) Parainfluenza 3 (PCR) Not Detected (Not Detect.) Parainfluenza 4 (PCR) Not Detected (Not Detect.) RSV (PCR) Not Detected (Not Detect.) Entero/Rhino (PCR) Not Detected (Not Detect.) SARS-CoV-2 RNA (RT-PCR) Not Detected (Not Detect.) Imaging Data Chest x-ray: Attestation: I personally reviewed and interpreted this imaging study as follows: Radiologist's impression: FINDINGS: The cardiac silhouette is normal. There is mild diffuse bronchial wall thickening. There are no areas of consolidation. There are no pleural effusions or pneumothoraces. The bones and soft tissues are unremarkable for the patient's age. XR/XR chest 1V IMPRESSION: No significant change. Wall thickening consistent with patient's known history of reactive airways disease. ECG Data Attestation: I personally reviewed and interpreted this ECG as follows: ECG interpretation date: 04/04/21 ECG interpretation time: 11:32 Interpretation: Normal sinus rhythm with ventricular rate of 87 with a normal MA interval normal QRS duration normal QT /QTC interval. No acute ischemic changes are noted. Similar when compared to prior EKG 02/07/2021. Critical Care Time Critical Care Time Critical Care Time: Yes Total Critical Care Time: 60 Attestation: I personally attest to this time spent taking care of the patient Discharge Plan Discharge Clinical Impression: Chronic obstructive asthma with exacerbation, Bronchitis, Acute bronchitis with bronchospasm Patient Disposition: Admitted As Inpatient Prescriptions: No Action omeprazole 20 mg capsule,delayed release(DR/EC) 20 mg PO DAILY 90 Days Qty: 90 RF: 3 levothyroxine 25 mcg tablet 25 mcg PO DAILY 90 Days Qty: 90 RF: 1 albuterol sulfate 2.5 mg /3 mL (0.083 %) solution for nebulization 2.5 mg inhalation Q4H PRN (Reason: shortness of breath or wheezing) Qty: 180 RF: 3 Eliquis 5 mg tablet 5 mg PO BID Qty: 60 RF: 5 diltiazem HCl [Cardizem CD] 120 mg capsule,extended release 24hr 120 mg PO DAILY Qty: 30 RF: 5 Multaq 400 mg tablet 400 mg PO BID Qty: 60 RF: 5 prednisone 20 mg tablet 5 mg PO DAILY Qty: 30 RF: 0 albuterol sulfate 90 mcg/actuation aerosol powdr breath activated 1 inh inhalation Q4-6H PRN (Reason: asthma) Qty: 2 RF: 0 loratadine 10 mg tablet 1 tab PO DAILY RF: 0 dextromethorphan-guaifenesin 10-100 mg/5 mL Syrup 5 ml PO Q6H PRN (Reason: Cough) Qty: 237 RF: 0 rosuvastatin 5 mg tablet 5 mg PO DAILY 90 Days Qty: 90 RF: 3 aripiprazole 5 mg tablet 5 mg PO DAILY RF: 0 escitalopram oxalate 10 mg tablet 10 mg PO DAILY RF: 0 buspirone 5 mg tablet 5 mg PO BID RF: 0 Incruse Ellipta 62.5 mcg/actuation blister with device 1 inh inhalation DAILY 30 Days Qty: 30 RF: 11
[2021-04-04] MEDS: Albuterol Sulfate (0.083%) 2.5 MG/3 ML VIAL.NEB 10 MG INHALE (11:43)
[2021-04-04] MEDS: methylPREDNISolone Sod Succ 125 MG/2 ML VIAL IVPUSH (11:54)
[2021-04-04] MEDS: Magnesium Sulfate/H2O 2 GM/50 ML PIGGYBACK IV (11:54)
[2021-04-04 12:05] LABS: MANUAL DIFF FLAG NO
--- NOTE | 2021-04-04 12:05 | PC.NURSE ---
Pt arrived with coarse wheezes, moderate air movement, skin pwd. spking full sentences and no accessory muscle use.
[2021-04-04 12:06] LABS: Basophils Absolute Auto 0.1 X10*3/uL (0.0-0.2); Basophils Percent Auto 1.2 % (0-2); Eosinophils Percent Auto 11.5 % (0-4); Hematocrit 37.6 % (37-47); Hemoglobin 11.6 g/dl (12.0-16.0); Imm Gran Abs Auto 0.02 X10*3/uL (0.00-0.03); Imm Gran Pct Auto 0.2 % (0.0-0.4); Lymphocytes Absolute Auto 1.9 X10*3/uL (1.2-4.9); Lymphocytes Percent Auto 21.5 % (20-40); Mean Corpuscular HGB Conc 30.9 g/dl (31.0-35.0); Mean Corpuscular Volume 87.6 fL (80-98); Mean Platelet Volume 8.9 fL (9.4-12.3); Monocytes Absolute Auto 0.5 X10*3/uL (0.1-1.2); Neutrophils Absolute Auto 5.3 X10*3/uL (2.0-8.3); Neutrophils Percent Auto 59.6 % (45-73); Platelet Count 350 X10*3/uL (160-400); Red Blood Count 4.29 X10*6/uL (4.20-5.50); Red Cell Distribution Width 14.6 % (11.0-16.0)
[2021-04-04 12:11] LABS: INTERNATIONAL NORM RATIO 1.1 (0.9-1.1)
[2021-04-04] MEDS: 0.9 % Sodium Chloride 1,000 ML 999 ML IVCONT (12:26)
[2021-04-04 12:44] LABS: Magnesium 2.1 mg/dL (1.6-2.6)
[2021-04-04 12:45] LABS: Alanine Aminotransferase 12 U/L (0-31); Albumin Level 4.2 g/dL (3.5-5.0); Alkaline Phosphatase 67 U/L (39-117); Anion Gap 13 (12-20); Aspartate Amino Transferase 14 U/L (5-31); Bilirubin Total 0.3 mg/dL (0.0-1.0); Blood Urea Nitrogen 21 mg/dL (9-16); Calcium 9.2 mg/dL (8.4-10.2); Carbon Dioxide 26 mmol/L (22-29); Chloride 107 mmol/L (96-108); Creatinine Clr Calc Pharmacy 50.5; Estimated Glomerular Filt Rate 54; Glucose Random 103 mg/dL (60-115); Potassium 4.1 mmol/L (3.3-5.1); Sodium 142 mmol/L (135-145); Total Protein 6.8 g/dL (6.5-8.0)
[2021-04-04 12:52] LABS: B Type Natriuretic Peptide 147 pg/mL (<100); Troponin-I High Sensitivity < 3.5 ng/L (<3.5-17.0)
[2021-04-04 13:06] LABS: Adenovirus PCR Not Detected (Not Detect.); Bordetella parapertussis PCR Not Detected (Not Detect.); Bordetella pertussis PCR Not Detected (Not Detect.); Chlamydia pneumoniae PCR Not Detected (Not Detect.); Coronavirus 229E PCR Not Detected (Not Detect.); Coronavirus HKU1 PCR Not Detected (Not Detect.); Coronavirus NL63 PCR Not Detected (Not Detect.); Coronavirus OC43 PCR Not Detected (Not Detect.); Human metapneumovirus PCR Not Detected (Not Detect.); Influenza A PCR Not Detected (Not Detect.); Influenza B PCR Not Detected (Not Detect.); Mycoplasma pneumoniae PCR Not Detected (Not Detect.); Parainfluenza 1 PCR Not Detected (Not Detect.); Parainfluenza 2 PCR Not Detected (Not Detect.); Parainfluenza 3 PCR Not Detected (Not Detect.); Parainfluenza 4 PCR Not Detected (Not Detect.); RSV PCR Not Detected (Not Detect.); Rhino/Enterovirus PCR Not Detected (Not Detect.); SARS-CoV-2 PCR Not Detected (Not Detect.)
--- NOTE | 2021-04-04 13:47 | PC.NURSE ---
continues to be wheezy now with audible wheezes. states she doesn't feel any better. has hacking coughing fits. this rn to approach provider to cough suppresent. still no accessory muscle use.
[2021-04-04 14:43] LABS: Appearance Urine CLEAR; Color Urine YELLOW; Glucose Urine UA NEG (NEG); Leukocyte Esterase Urine NEG (NEG); Nitrite Urine NEG (NEG); PH 5.5 (5.0-8.0); Urine Blood TRACE (NEG); Urine Ketones NEG (NEG); Urine Protein NEG (NEG-TRACE)
[2021-04-04 14:47] LABS: Mucus Urine 1+ /LPF; Squamous Epithelial Cell Urine 1+ /LPF; WBC Urine 0 /HPF (0-4)
[2021-04-04] MEDS: guaiFEN/Codeine SF 200/20/10ML 10 ML LIQUID PO (15:02)
[2021-04-04] MEDS: cefTRIAXone sodium 2 GM in 0.9 % Sodium Chloride 50 ML IV (15:02)
--- NOTE | 2021-04-04 15:03 | P.HPHOSP_ITS ---
History of Present Illness Date of Service: 04/04/21 Chief Complaint: difficulty breathing, dyspnea on exertion a 70 years old lady with PMH of COPD, asthma, GERD, HTN, atrial fibrillation among others who presented to the hospital complaining of worsening shortness of breath for the last week. She reports that her symptoms started almost 1 week ago upon the high temperature wave mainly with nasal congestion but developed shortly more symptoms of shortness breath and coughing associated with wheezes. She tried her home medications of nebulizer and inhaler with no improvement over the last few days. Decided come to the hospital today for further evaluation treatment. She denies any chest pain, fever, chills, nausea or vomiting Or change in bowel habit. in the emergency chest x-ray was negative any infiltrates. She was treated with nebulizers and steroids without significant improvement so decision was to admit for observation overnight. Review of Systems Review of Systems: No fever, chills or weakness No chest pain, palpitation shortness of breath, dyspnea on exertion, cough, wheezing No abdominal pain, nausea or vomiting No urinary symptoms No any rash or wounds PMFSH Medical History Asthma Chronic allergic rhinitis Dyslipidemia Eosinophilia GERD (gastroesophageal reflux disease) HTN (hypertension) Hypothyroidism Paroxysmal atrial fibrillation Pneumonia Steroid dependent Family History Father Medical history unknown Mother Medical history unknown Surgical History History of knee surgery History of nasal polypectomy History of shoulder surgery History of tubal ligation Social History Household Members: None Housing: Apartment Do you presently have visiting nurse or other home services: No Alcohol intake: never Patient Tobacco Use Status: Former Tobacco user Tobacco use type: Cigarette e-Cigarette/Vaping Use: Never Used Second Hand Smoke Exposure: No Use of substances other than those prescribed or required for medical reasons: No Advance Directives: Yes Advance Directives on File: Yes Advance Directives Date on File: 11/10/20 service: No Current occupational status: disabled Meds Allergies Allergy/AdvReac Type Severity Reaction Status Date / Time acetaminophen Allergy Intermediate vomitting Verified 03/11/21 10:52 [Tylenol-Codeine #3] atorvastatin [Lipitor] Allergy Intermediate nausea Verified 03/11/21 10:52 levofloxacin [From LEVAQUIN] Allergy Intermediate RASH SOB, Verified 03/11/21 10:52 DIZZYNESS sulfamethoxazole Allergy Unknown Verified 04/04/21 11:26 [From Bactrim] trimethoprim [From Bactrim] Allergy Unknown Verified 04/04/21 11:26 codeine [CODEINE] AdvReac Intermediate NAUSEA & Verified 03/11/21 10:52 VOMITING morphine [MORPHINE] AdvReac Intermediate NAUSEA & Verified 03/11/21 10:52 VOMITING pravastatin AdvReac Intermediate myalgia Verified 03/11/21 10:52 Active Medications: Current Medications Generic Name Dose Route Start Last Admin Trade Name Freq PRN Reason Stop Dose Admin Diphenhydramine HCl 25 mg 04/04/21 14:57 Diphenhydramine Hcl 25 Mg Tablet PO Q6H PRN Itching Zinc Acetate/Diphenhydramine 1 appl 04/04/21 15:00 Diphenhydramine Hcl 2 % Cream 28 Gm Tube TOPICAL TID COUNTS INCLUDE 234 BEDS AT THE [facility] Protocol Home Medications Medication Instructions Recorded Confirmed Last Taken Type loratadine 1 tab PO DAILY 02/07/21 04/04/21 04/03/21 History aripiprazole 5 mg tablet 5 mg PO DAILY 02/17/21 04/04/21 04/03/21 History buspirone 5 mg tablet 5 mg PO BID 02/17/21 04/04/21 04/03/21 History escitalopram oxalate 10 mg tablet 10 mg PO DAILY 02/17/21 04/04/21 04/03/21 History albuterol sulfate 1 vial INHALATION Q4H PRN 04/04/21 04/04/21 Unknown History dronedarone [Multaq] 400 mg PO BID 04/04/21 04/04/21 1 Day Ago History ~04/03/21 prednisone 5 mg PO DAILY 04/04/21 04/04/21 Unknown History Physical Exam Vital Signs and Narrative: Vital Signs: Last Vital Signs Temp 97.8 F 04/04/21 11:27 Pulse 96 04/04/21 13:48 Resp 18 04/04/21 13:48 BP 116/56 L 04/04/21 13:48 Pulse Ox 100 04/04/21 13:48 Body Mass Index 30.4 Const: Other: Constitutional : Alert, oriented, in mild respiratory distress Neck : Normal inspection, Supple Cardiovascular : RRR, S1 S2, no lower extremity edema Respiratory : decreased bilateral air entry, bilateral weaknesses expiratory, increased respiratory rate Gastrointestinal: soft, lax, Normal bowel sounds, Non tender Skin : Warm/Dry, No rash Neurological : Alert & oriented x3, No focal deficit Results Labs CBC and Chem 7: 04/04/21 11:53 04/04/21 11:53 Labs: Laboratory Results - last 24 hr 04/04/21 04/04/21 04/04/21 11:53 11:53 11:53 MCV 87.6 MCH 27.0 MCHC 30.9 L RDW 14.6 Plt Count 350 MPV 8.9 L Immature Gran % (Auto) 0.2 Neut % (Auto) 59.6 Lymph % (Auto) 21.5 [place] % (Auto) 6.0 Eos % (Auto) 11.5 H Baso % (Auto) 1.2 Lymph # (Auto) 1.9 [place] # (Auto) 0.5 Eos # (Auto) 1.0 H Baso # (Auto) 0.1 Abs Immat Gran (auto) 0.02 Absolute Neuts (auto) 5.3 Absolute Nucleated RBC 0.000 Nucleated RBC % (auto) 0.0 PT 12.0 INR 1.1 Anion Gap Estim Creat Clear Calc Estimated GFR Random Glucose Calcium Magnesium 2.1 Total Bilirubin AST ALT Alkaline Phosphatase Troponin I High Sens B-Natriuretic Peptide Total Protein Albumin Urine Color Urine Appearance Urine pH Ur Specific [place] Urine Protein Urine Glucose (UA) Urine Ketones Urine Blood Urine Nitrite Ur Leukocyte Esterase Urine RBC Urine WBC Ur Squamous Epith Cells Urine Bacteria Urine Mucus Respiratory Panel [place] Adenovirus (Rapid PCR) B.pert (TEM-PCR) B.parapertussis DNA PCR C. pneumoniae DNA (PCR) Coronavirus OC43 (PCR) Coronavirus HKU1 (PCR) Coronavirus 229E (PCR) Coronavirus NL63 (PCR) Human Metapneumovir PCR Influenza A (RT-PCR) Influenza B (RT-PCR) M. pneumoniae (PCR) Parainfluenza 1 (PCR) Parainfluenza 2 (PCR) Parainfluenza 3 (PCR) Parainfluenza 4 (PCR) RSV (PCR) Entero/Rhino (PCR) SARS-CoV-2 RNA (RT-PCR) 04/04/21 04/04/21 04/04/21 11:53 11:53 12:36 MCV MCH MCHC RDW Plt Count MPV Immature Gran % (Auto) Neut % (Auto) Lymph % (Auto) [place] % (Auto) Eos % (Auto) Baso % (Auto) Lymph # (Auto) [place] # (Auto) Eos # (Auto) Baso # (Auto) Abs Immat Gran (auto) Absolute Neuts (auto) Absolute Nucleated RBC Nucleated RBC % (auto) PT INR Anion Gap 13 Estim Creat Clear Calc 50.5 Estimated GFR 54 Random Glucose 103 Calcium 9.2 Magnesium Total Bilirubin 0.3 AST 14 ALT 12 Alkaline Phosphatase 67 Troponin I High Sens < 3.5 B-Natriuretic Peptide 147 H Total Protein 6.8 Albumin 4.2 Urine Color Urine Appearance Urine pH Ur Specific [place] Urine Protein Urine Glucose (UA) Urine Ketones Urine Blood Urine Nitrite Ur Leukocyte Esterase Urine RBC Urine WBC Ur Squamous Epith Cells Urine Bacteria Urine Mucus Respiratory Panel [place] See Note Adenovirus (Rapid PCR) Not Detected B.pert (TEM-PCR) Not Detected B.parapertussis DNA PCR Not Detected C. pneumoniae DNA (PCR) Not Detected Coronavirus OC43 (PCR) Not Detected Coronavirus HKU1 (PCR) Not Detected Coronavirus 229E (PCR) Not Detected Coronavirus NL63 (PCR) Not Detected Human Metapneumovir PCR Not Detected Influenza A (RT-PCR) Not Detected Influenza B (RT-PCR) Not Detected M. pneumoniae (PCR) Not Detected Parainfluenza 1 (PCR) Not Detected Parainfluenza 2 (PCR) Not Detected Parainfluenza 3 (PCR) Not Detected Parainfluenza 4 (PCR) Not Detected RSV (PCR) Not Detected Entero/Rhino (PCR) Not Detected SARS-CoV-2 RNA (RT-PCR) Not Detected 04/04/21 14:32 MCV MCH MCHC RDW Plt Count MPV Immature Gran % (Auto) Neut % (Auto) Lymph % (Auto) [place] % (Auto) Eos % (Auto) Baso % (Auto) Lymph # (Auto) [place] # (Auto) Eos # (Auto) Baso # (Auto) Abs Immat Gran (auto) Absolute Neuts (auto) Absolute Nucleated RBC Nucleated RBC % (auto) PT INR Anion Gap Estim Creat Clear Calc Estimated GFR Random Glucose Calcium Magnesium Total Bilirubin AST ALT Alkaline Phosphatase Troponin I High Sens B-Natriuretic Peptide Total Protein Albumin Urine Color YELLOW Urine Appearance CLEAR Urine pH 5.5 Ur Specific [place] 1.020 Urine Protein NEG Urine Glucose (UA) NEG Urine Ketones NEG Urine Blood TRACE Urine Nitrite NEG Ur Leukocyte Esterase NEG Urine RBC 1-4 Urine WBC 0 Ur Squamous Epith Cells 1+ Urine Bacteria NONE Urine Mucus 1+ Respiratory Panel [place] Adenovirus (Rapid PCR) B.pert (TEM-PCR) B.parapertussis DNA PCR C. pneumoniae DNA (PCR) Coronavirus OC43 (PCR) Coronavirus HKU1 (PCR) Coronavirus 229E (PCR) Coronavirus NL63 (PCR) Human Metapneumovir PCR Influenza A (RT-PCR) Influenza B (RT-PCR) M. pneumoniae (PCR) Parainfluenza 1 (PCR) Parainfluenza 2 (PCR) Parainfluenza 3 (PCR) Parainfluenza 4 (PCR) RSV (PCR) Entero/Rhino (PCR) SARS-CoV-2 RNA (RT-PCR) Imaging Radiologist's Impressions: Impressions Chest X-Ray 04/04/21 11:19 IMPRESSION: No significant change. Wall thickening consistent with patient's known history of reactive airways disease. Assessment and Plan (1) Acute bronchitis with bronchospasm: Status: Acute (2) COPD (chronic obstructive pulmonary disease): Status: Acute a 70 years old lady with PMH of COPD, asthma, GERD, HTN, atrial fibrillation among others who presented to the hospital complaining of worsening shortness of breath for the last week. Acute bronchitis acute COPD exacerbation CXR showing wall thickening With no infiltrates Start IV steroids DuoNeb nebulizer ATC, p.r.n. albuterol Start p.o. azithromycin for anti-inflammatory effect Of medications lactic acidosis Lactic level above 3 Likely result of albuterol usage not from sepsis Elevated BNP start gentle hydration Atrial fibrillation Heart rate controlled Continue home medications DVT PPX Eliquis Quality Stroke Does the patient have a stroke diagnosis?: No VTE Prior VTE?: No VTE Risk Level:: Medical - moderate - high VTE Device Contraindication: Treatment Not Indicated VTE Drug Contraindication: N/A - Med Ordered
[2021-04-04] MEDS: Albuterol/Iprat 2.5/0.5MG 3 ML AMPUL.NEB INHALE ×2 (15:32→20:49)
[2021-04-04] MEDS: Furosemide 20 MG/2 ML VIAL IVPUSH (15:43)
[2021-04-04 15:54] LABS: Cancel Lactic Acid Canceled
--- NOTE | 2021-04-04 16:03 | PC.NURSE ---
report to Natalia NAYLOR.
[2021-04-04] MEDS: guaiFENesin LA 600 MG TAB.ER.12H PO ×2 (17:13→20:06)
[2021-04-04] MEDS: Azithromycin 500 MG TABLET PO (17:13)
[2021-04-04] MEDS: 0.9 % Sodium Chloride Flush 3 ML SYRINGE IVFLUSH ×2 (17:13→23:31)
[2021-04-04] MEDS: Hydrocortisone 1 % Cream 28.35 GM TUBE 1 APPL TOPICAL (20:06)
[2021-04-04] MEDS: methylPREDNISolone Sod Succ 40 MG/ML VIAL IVPUSH (20:06)
[2021-04-04] MEDS: Dronedarone HCl 400 MG TABLET PO (20:06)
[2021-04-04] MEDS: Apixaban 5 MG TABLET PO (20:06)
[2021-04-04] MEDS: busPIRone HCl 5 MG TABLET PO (20:06)
[2021-04-05] VITALS (10 sets, daily range): BP systolic 138–162; BP diastolic 55–76; PULSE 78–94; RESP 14–19; TEMP 35.7–36.1; O2SAT 97–100
[2021-04-05] MEDS: Omeprazole 20 MG CAPSULE.DR PO (05:19)
[2021-04-05] MEDS: Levothyroxine Sodium 25 MCG TABLET PO (05:24)
[2021-04-05 05:43] LABS: Anion Gap 14 (12-20); Blood Urea Nitrogen 18 mg/dL (9-16); Calcium 9.2 mg/dL (8.4-10.2); Carbon Dioxide 24 mmol/L (22-29); Chloride 107 mmol/L (96-108); Creatinine Clr Calc Pharmacy 52.5; Estimated Glomerular Filt Rate 57; Glucose Random 135 mg/dL (60-115); Sodium 140 mmol/L (135-145)
[2021-04-05] MEDS: 0.9 % Sodium Chloride Flush 3 ML SYRINGE IVFLUSH ×4 (07:47→23:22)
[2021-04-05] MEDS: Albuterol/Iprat 2.5/0.5MG 3 ML AMPUL.NEB INHALE ×2 (07:50→11:31)
--- NOTE | 2021-04-05 09:28 | MHC.CM.PN ---
PATIENT LIVES ALONE. SHE IS FULLY INDEPENDENT WITH HER ADLS. PATIENT WALKS WHERE NEEDED. [facility] OFFERS RN PHONE CALLS AND VISITS EVERY 6 MONTHS, OR NEEDED. PATIENT RELIES ON HER INHALERS AND NEBULIZER TREATMENTS. HCP IS ON FILE AND VERIFIED. PARHAM 04/05 IN CHART. POSSIBLE DC TO HOME Tuesday04/06/2021. SHE WILL NEED ASSISTANCE WITH TRANSPORTATION.
[2021-04-05] MEDS: Dronedarone HCl 400 MG TABLET PO ×2 (10:08→19:52)
[2021-04-05] MEDS: Loratadine 10 MG TABLET PO (10:08)
[2021-04-05] MEDS: busPIRone HCl 5 MG TABLET PO ×2 (10:09→19:52)
[2021-04-05] MEDS: dilTIAZem HCL CD 120 MG CAP.ER.DEG PO (10:09)
[2021-04-05] MEDS: ARIPiprazole 5 MG TABLET PO (10:09)
[2021-04-05] MEDS: Apixaban 5 MG TABLET PO ×2 (10:09→19:52)
[2021-04-05] MEDS: Escitalopram Oxalate 10 MG TABLET PO (10:09)
[2021-04-05] MEDS: guaiFENesin LA 600 MG TAB.ER.12H PO ×2 (10:09→19:52)
[2021-04-05] MEDS: methylPREDNISolone Sod Succ 40 MG/ML VIAL IVPUSH ×2 (10:09→19:50)
[2021-04-05] MEDS: Hydrocortisone 1 % Cream 28.35 GM TUBE 1 APPL TOPICAL ×3 (10:16→19:52)
--- NOTE | 2021-04-05 12:00 | HO.PM.IMPN ---
Subjective Subjective Date of Service: 04/05/21 Interval History: the patient was seen and evaluated this morning sitting in the chair, still complaining of wheezing dictation with dyspnea exertion for going to the bathroom Maintaining her oxygen level in 90s at room was resting Denies any fever, chills or chest pain No reported other overnight events. Systemic review: No fever, chills or weakness No chest pain, palpitation reporting shortness of breath , wheezes and episodes of coughing No abdominal pain, nausea or vomiting No urinary symptoms No any rash or wounds Physical Exam Vital Signs: Vital Signs: Last Vital Signs Temp 97.0 F 04/05/21 07:19 Pulse 82 04/05/21 11:31 Resp 16 04/05/21 07:19 BP 162/71 H 04/05/21 07:19 Pulse Ox 100 04/05/21 07:39 Body Mass Index 30.4 Const: Other: Constitutional : Alert, oriented, in mild respiratory distress with exertion Neck : Normal inspection, Supple Cardiovascular : RRR, S1 S2, no lower extremity edema Respiratory : decreased bilateral air entry, bilateral weaknesses expiratory, increased respiratory rate Gastrointestinal: soft, lax, Normal bowel sounds, Non tender Skin : Warm/Dry, No rash Neurological : Alert & oriented x3, No focal deficit Objective Data Current Medications Generic Name Dose Route Start Last Admin Trade Name Freq PRN Reason Stop Dose Admin Acetaminophen 650 mg 04/04/21 16:00 Acetaminophen 325 Mg Tablet PO Q6H PRN Pain, Mild (Pain Scale 1-3) Albuterol Sulfate 4 puff 04/04/21 15:25 Albuterol Sulfate 90 Mcg 8 Gm Inhaler INHALE Q3H PRN Shortness of Breath/Wheezing Albuterol Sulfate 2.5 mg 04/04/21 15:56 Albuterol Sulfate (0.083%) 2.5 Mg/3 Ml Vial.Neb INHALE Q4H PRN wheezing Albuterol/Ipratropium 3 ml 04/04/21 16:00 04/05/21 11:31 Albuterol/Iprat 2.5/0.5mg 3 Ml Ampul.Neb INHALE 3 ml RQ4H WHILE AWAKE THANH Administration Apixaban 5 mg 04/04/21 21:00 04/05/21 10:09 Apixaban 5 Mg Tablet PO 5 mg BID THANH Administration Aripiprazole 5 mg 04/05/21 09:00 04/05/21 10:09 Aripiprazole 5 Mg Tablet PO 5 mg DAILY THANH Administration Azithromycin 500 mg 04/04/21 16:00 04/04/21 17:13 Azithromycin 500 Mg Tablet PO 500 mg Q24H THANH Administration Buspirone HCl 5 mg 04/04/21 21:00 04/05/21 10:09 Buspirone Hcl 5 Mg Tablet PO 5 mg BID THANH Administration Diltiazem HCl 120 mg 04/05/21 09:00 04/05/21 10:09 Diltiazem Hcl Cd 120 Mg Cap.Er.Deg PO 120 mg DAILY THANH Administration Protocol Diphenhydramine HCl 25 mg 04/04/21 14:57 Diphenhydramine Hcl 25 Mg Tablet PO Q6H PRN Itching Dronedarone 400 mg 04/04/21 21:00 04/05/21 10:08 Dronedarone Hcl 400 Mg Tablet PO 400 mg BID THANH Administration Escitalopram Oxalate 10 mg 04/05/21 09:00 04/05/21 10:09 Escitalopram Oxalate 10 Mg Tablet PO 10 mg DAILY THANH Administration Guaifenesin 600 mg 04/04/21 15:25 04/05/21 10:09 Guaifenesin [place] 600 Mg Tab.Er.12h PO 600 mg BID THANH Administration Hydrocortisone 1 appl 04/04/21 21:00 04/05/21 10:16 Hydrocortisone 1 % Cream 28.35 Gm Tube TOPICAL 1 appl TID THANH Administration Protocol Levothyroxine Sodium 25 mcg 04/05/21 09:00 04/05/21 05:24 Levothyroxine Sodium 25 Mcg Tablet PO 25 mcg DAILY THANH Administration Loratadine 10 mg 04/05/21 09:00 04/05/21 10:08 Loratadine 10 Mg Tablet PO 10 mg DAILY THANH Administration Methylprednisolone Sodium Succinate 40 mg 04/04/21 21:00 04/05/21 10:09 Methylprednisolone Sod Succ 40 Mg/Ml Vial IVPUSH 40 mg BID THANH Administration Omeprazole 20 mg 04/05/21 06:30 04/05/21 05:19 Omeprazole 20 Mg Capsule.Dr PO 20 mg DAILY@0630 THANH Administration Ondansetron HCl 4 mg 04/04/21 16:00 Ondansetron Hcl 4 Mg/2 Ml Vial IVPUSH Q8H PRN Nausea and Vomiting Sodium Chloride 3 ml 04/04/21 16:00 04/05/21 07:47 0.9 % Sodium Chloride Flush 3 Ml Syringe IVFLUSH 3 ml QSHIFT THANH Administration Labs CBC & Chem 7: 04/04/21 11:53 04/05/21 04:55 Labs: Laboratory Results - last 24 hr 04/04/21 04/04/21 04/04/21 11:53 11:53 11:53 WBC 9.0 RBC 4.29 Hgb 11.6 L Hct 37.6 MCV 87.6 MCH 27.0 MCHC 30.9 L RDW 14.6 Plt Count 350 MPV 8.9 L Immature Gran % (Auto) 0.2 Neut % (Auto) 59.6 Lymph % (Auto) 21.5 [place] % (Auto) 6.0 Eos % (Auto) 11.5 H Baso % (Auto) 1.2 Lymph # (Auto) 1.9 [place] # (Auto) 0.5 Eos # (Auto) 1.0 H Baso # (Auto) 0.1 Abs Immat Gran (auto) 0.02 Absolute Neuts (auto) 5.3 Absolute Nucleated RBC 0.000 Nucleated RBC % (auto) 0.0 PT 12.0 INR 1.1 Sodium Potassium Chloride Carbon Dioxide Anion Gap BUN Creatinine Estim Creat Clear Calc Estimated GFR Random Glucose Lactic Acid Calcium Magnesium 2.1 Total Bilirubin AST ALT Alkaline Phosphatase Troponin I High Sens B-Natriuretic Peptide Total Protein Albumin Urine Color Urine Appearance Urine pH Ur Specific [place] Urine Protein Urine Glucose (UA) Urine Ketones Urine Blood Urine Nitrite Ur Leukocyte Esterase Urine RBC Urine WBC Ur Squamous Epith Cells Urine Bacteria Urine Mucus Respiratory Panel [place] Adenovirus (Rapid PCR) B.pert (TEM-PCR) B.parapertussis DNA PCR C. pneumoniae DNA (PCR) Coronavirus OC43 (PCR) Coronavirus HKU1 (PCR) Coronavirus 229E (PCR) Coronavirus NL63 (PCR) Human Metapneumovir PCR Influenza A (RT-PCR) Influenza B (RT-PCR) M. pneumoniae (PCR) Parainfluenza 1 (PCR) Parainfluenza 2 (PCR) Parainfluenza 3 (PCR) Parainfluenza 4 (PCR) RSV (PCR) Entero/Rhino (PCR) SARS-CoV-2 RNA (RT-PCR) 04/04/21 04/04/21 04/04/21 11:53 11:53 12:36 WBC RBC Hgb Hct MCV MCH MCHC RDW Plt Count MPV Immature Gran % (Auto) Neut % (Auto) Lymph % (Auto) [place] % (Auto) Eos % (Auto) Baso % (Auto) Lymph # (Auto) [place] # (Auto) Eos # (Auto) Baso # (Auto) Abs Immat Gran (auto) Absolute Neuts (auto) Absolute Nucleated RBC Nucleated RBC % (auto) PT INR Sodium 142 Potassium 4.1 Chloride 107 Carbon Dioxide 26 Anion Gap 13 BUN 21 H Creatinine 1.01 Estim Creat Clear Calc 50.5 Estimated GFR 54 Random Glucose 103 Lactic Acid Calcium 9.2 Magnesium Total Bilirubin 0.3 AST 14 ALT 12 Alkaline Phosphatase 67 Troponin I High Sens < 3.5 B-Natriuretic Peptide 147 H Total Protein 6.8 Albumin 4.2 Urine Color Urine Appearance Urine pH Ur Specific [place] Urine Protein Urine Glucose (UA) Urine Ketones Urine Blood Urine Nitrite Ur Leukocyte Esterase Urine RBC Urine WBC Ur Squamous Epith Cells Urine Bacteria Urine Mucus Respiratory Panel [place] See Note Adenovirus (Rapid PCR) Not Detected B.pert (TEM-PCR) Not Detected B.parapertussis DNA PCR Not Detected C. pneumoniae DNA (PCR) Not Detected Coronavirus OC43 (PCR) Not Detected Coronavirus HKU1 (PCR) Not Detected Coronavirus 229E (PCR) Not Detected Coronavirus NL63 (PCR) Not Detected Human Metapneumovir PCR Not Detected Influenza A (RT-PCR) Not Detected Influenza B (RT-PCR) Not Detected M. pneumoniae (PCR) Not Detected Parainfluenza 1 (PCR) Not Detected Parainfluenza 2 (PCR) Not Detected Parainfluenza 3 (PCR) Not Detected Parainfluenza 4 (PCR) Not Detected RSV (PCR) Not Detected Entero/Rhino (PCR) Not Detected SARS-CoV-2 RNA (RT-PCR) Not Detected 04/04/21 04/04/21 04/05/21 14:32 14:32 04:55 WBC RBC Hgb Hct MCV MCH MCHC RDW Plt Count MPV Immature Gran % (Auto) Neut % (Auto) Lymph % (Auto) [place] % (Auto) Eos % (Auto) Baso % (Auto) Lymph # (Auto) [place] # (Auto) Eos # (Auto) Baso # (Auto) Abs Immat Gran (auto) Absolute Neuts (auto) Absolute Nucleated RBC Nucleated RBC % (auto) PT INR Sodium 140 Potassium 5.0 D Chloride 107 Carbon Dioxide 24 Anion Gap 14 BUN 18 H Creatinine 0.97 Estim Creat Clear Calc 52.5 Estimated GFR 57 Random Glucose 135 H Lactic Acid Cancelled Calcium 9.2 Magnesium Total Bilirubin AST ALT Alkaline Phosphatase Troponin I High Sens B-Natriuretic Peptide Total Protein Albumin Urine Color YELLOW Urine Appearance CLEAR Urine pH 5.5 Ur Specific [place] 1.020 Urine Protein NEG Urine Glucose (UA) NEG Urine Ketones NEG Urine Blood TRACE Urine Nitrite NEG Ur Leukocyte Esterase NEG Urine RBC 1-4 Urine WBC 0 Ur Squamous Epith Cells 1+ Urine Bacteria NONE Urine Mucus 1+ Respiratory Panel [place] Adenovirus (Rapid PCR) B.pert (TEM-PCR) B.parapertussis DNA PCR C. pneumoniae DNA (PCR) Coronavirus OC43 (PCR) Coronavirus HKU1 (PCR) Coronavirus 229E (PCR) Coronavirus NL63 (PCR) Human Metapneumovir PCR Influenza A (RT-PCR) Influenza B (RT-PCR) M. pneumoniae (PCR) Parainfluenza 1 (PCR) Parainfluenza 2 (PCR) Parainfluenza 3 (PCR) Parainfluenza 4 (PCR) RSV (PCR) Entero/Rhino (PCR) SARS-CoV-2 RNA (RT-PCR) Imaging Chest x-ray: Radiologist's impression: Impressions Chest X-Ray 04/04/21 11:19 IMPRESSION: No significant change. Wall thickening consistent with patient's known history of reactive airways disease. Quality Stroke Does the patient have a stroke diagnosis?: No VTE Prior VTE?: No VTE Risk Level:: Medical - moderate - high VTE Device Contraindication: Treatment Not Indicated VTE Drug Contraindication: N/A - Med Ordered Assessment and Plan (1) Acute bronchitis with bronchospasm: Status: Acute (2) COPD (chronic obstructive pulmonary disease): Status: Acute Assessment and Plan: a 70 years old lady with PMH of COPD, asthma, GERD, HTN, atrial fibrillation among others who presented to the hospital complaining of worsening shortness of breath for the last week. Acute bronchitis acute COPD exacerbation CXR showing wall thickening With no infiltrates continue IV steroids DuoNeb nebulizer ATC, p.r.n. albuterol continue p.o. azithromycin for anti-inflammatory effect Of medications lactic acidosis Lactic level above 3 Likely result of albuterol usage not from sepsis Elevated BNP made good amount few urine overnight hold on further diuresis Atrial fibrillation Heart rate controlled Continue home medications DVT PPX Eliquis
[2021-04-05] MEDS: Azithromycin 500 MG TABLET PO (15:34)
[2021-04-06 03:42] VITALS: BP 115/53; PULSE 70; RESP 16; TEMP 35.8; O2SAT 96
[2021-04-06] MEDS: Omeprazole 20 MG CAPSULE.DR PO (05:42)
[2021-04-06] MEDS: Levothyroxine Sodium 25 MCG TABLET PO (05:42)
[2021-04-06 07:34] VITALS: BP 150/76; PULSE 91; RESP 19; TEMP 36.7; O2SAT 100
[2021-04-06 08:09] VITALS: PULSE 63; O2SAT 99
[2021-04-06] MEDS: dilTIAZem HCL CD 120 MG CAP.ER.DEG PO (08:31)
[2021-04-06] MEDS: Dronedarone HCl 400 MG TABLET PO (08:31)
[2021-04-06] MEDS: ARIPiprazole 5 MG TABLET PO (08:31)
[2021-04-06] MEDS: busPIRone HCl 5 MG TABLET PO (08:31)
[2021-04-06] MEDS: Apixaban 5 MG TABLET PO (08:31)
[2021-04-06] MEDS: guaiFENesin LA 600 MG TAB.ER.12H PO (08:31)
[2021-04-06] MEDS: Loratadine 10 MG TABLET PO (08:31)
[2021-04-06] MEDS: Escitalopram Oxalate 10 MG TABLET PO (08:31)
[2021-04-06] MEDS: 0.9 % Sodium Chloride Flush 3 ML SYRINGE IVFLUSH (08:32)
[2021-04-06] MEDS: methylPREDNISolone Sod Succ 40 MG/ML VIAL IVPUSH (08:32)
[2021-04-06] MEDS: Hydrocortisone 1 % Cream 28.35 GM TUBE 1 APPL TOPICAL (08:32)
--- NOTE | 2021-04-06 10:38 | PM.DS ---
DS: Providers Provider Date of Service: 04/06/21 Date of admission: 04/04/21 15:02 Primary care physician: Angelique Valentine MD DS: Diagnosis Discharge Diagnosis (1) Acute bronchitis with bronchospasm: Status: Acute (2) Chronic obstructive asthma with exacerbation: Status: Acute DS: Medications Discharge Medications Home Medications: Home Medications Medication Instructions Recorded Confirmed loratadine 1 tab PO DAILY 02/07/21 04/04/21 aripiprazole 5 mg tablet 5 mg PO DAILY 02/17/21 04/04/21 buspirone 5 mg tablet 5 mg PO BID 02/17/21 04/04/21 escitalopram oxalate 10 mg tablet 10 mg PO DAILY 02/17/21 04/04/21 Multaq 400 mg PO BID 04/04/21 04/04/21 albuterol sulfate 1 vial INHALATION Q4H PRN 04/04/21 04/04/21 prednisone 5 mg PO DAILY 04/04/21 04/04/21 Previous Rx's Medication Instructions Recorded omeprazole 20 mg capsule,delayed 20 mg PO DAILY 90 Days #90 cap 11/10/20 release levothyroxine 25 mcg tablet 25 mcg PO DAILY 90 Days #90 tab 01/08/21 rosuvastatin 5 mg tablet 5 mg PO DAILY 90 Days #90 tab 01/14/21 apixaban 5 mg tablet 5 mg PO BID #60 tab 01/30/21 diltiazem HCl 120 mg 120 mg PO DAILY #30 cap 01/30/21 capsule,extended release 24 hr umeclidinium 62.5 mcg/actuation 1 inh INHALATION DAILY 30 Days #30 02/17/21 blister powder for inhalation ea guaifenesin [Mucinex] 600 mg PO BID #10 tab 04/06/21 prednisone 40 mg PO DAILY #6 tab 04/06/21 DS: Summary Hospital Course Hospital Course: admission note HPI a 70 years old lady with PMH of COPD, asthma, GERD, HTN, atrial fibrillation among others who presented to the hospital complaining of worsening shortness of breath for the last week. She reports that her symptoms started almost 1 week ago upon the high temperature wave mainly with nasal congestion but developed shortly more symptoms of shortness breath and coughing associated with wheezes. She tried her home medications of nebulizer and inhaler with no improvement over the last few days. Decided come to the hospital today for further evaluation treatment. She denies any chest pain, fever, chills, nausea or vomiting Or change in bowel habit. in the emergency chest x-ray was negative any infiltrates. She was treated with nebulizers and steroids without significant improvement so decision was to admit for observation overnight. Hospital course Admitted for COPD exacerbation. Treated with IV steroids, antibiotics bronchodilator nebulizers with good response over the course of hospital stay as she was weaned off oxygen and was able to ambulate freely on room air with no reported shortness of breath or dyspnea. To be discharged home on prednisone And cough medication. Time Spent with Patient Time attestation: Total time spent providing and/or coordinating discharge services: Discharge coordination time: Greater than 30 minutes Quality: Stroke Does the patient have a stroke diagnosis?: No Physical Exam Vital Signs: Vital Signs: Last Vital Signs Temp 98.0 F 04/06/21 07:34 Pulse 63 04/06/21 08:09 Resp 19 04/06/21 07:34 BP 150/76 H 04/06/21 07:34 Pulse Ox 100 04/06/21 07:34 Body Mass Index 30.4 Const: Other: Constitutional : Alert, oriented, not distress Neck : Normal inspection, Supple Cardiovascular : RRR, S1 S2, no lower extremity edema Respiratory : good bilateral air entry, scattered wheezes bilaterally Gastrointestinal: soft, lax, Normal bowel sounds, Non tender Skin : Warm/Dry, No rash Neurological : Alert & oriented x3, No focal deficit DS: Data Data Completed and Pending Labs on day of discharge: Preliminary micro results at discharge 04/04/21 14:52 Blood Culture - Preliminary Blood - Venous No growth after 24 hours. 04/04/21 14:32 Blood Culture - Preliminary Blood - Venous No growth after 24 hours. Imaging Chest x-ray: Radiologist's impression: ITS Impressions Chest X-Ray 04/04/21 11:19 IMPRESSION: No significant change. Wall thickening consistent with patient's known history of reactive airways disease. Discharge Plan Discharge Patient Disposition: Home, Self-Care Discharge Diagnosis: acute COPD exacerbation Referrals: Angelique Li MD [Primary Care Provider] - 1 Week Discharge Medications: New guaifenesin [Mucinex] 600 mg Tablet Extended Release 12hr 600 mg PO BID Qty: 10 RF: 0 prednisone 20 mg tablet 40 mg PO DAILY Qty: 6 RF: 0 Continued omeprazole 20 mg capsule,delayed release(DR/EC) 20 mg PO DAILY 90 Days Qty: 90 RF: 3 levothyroxine 25 mcg tablet 25 mcg PO DAILY 90 Days Qty: 90 RF: 1 Eliquis 5 mg tablet 5 mg PO BID Qty: 60 RF: 5 diltiazem HCl [Cardizem CD] 120 mg capsule,extended release 24hr 120 mg PO DAILY Qty: 30 RF: 5 albuterol sulfate 2.5 mg /3 mL (0.083 %) solution for nebulization 1 vial inhalation Q4H PRN (Reason: wheezing) RF: 0 prednisone 5 mg Tablet 5 mg PO DAILY RF: 0 Multaq 400 mg Tablet 400 mg PO BID RF: 0 loratadine 10 mg tablet 1 tab PO DAILY RF: 0 rosuvastatin 5 mg tablet 5 mg PO DAILY 90 Days Qty: 90 RF: 3 aripiprazole 5 mg tablet 5 mg PO DAILY RF: 0 escitalopram oxalate 10 mg tablet 10 mg PO DAILY RF: 0 buspirone 5 mg tablet 5 mg PO BID RF: 0 Incruse Ellipta 62.5 mcg/actuation blister with device 1 inh inhalation DAILY 30 Days Qty: 30 RF: 11 Discharge Orders: Discharge Order (Routine); Ordered 04/06/21 Ordered By: Amirah Frost Diet: advance to usual diet Activity on Discharge: As tolerated Stand Alone Forms: Patient Portal Discharge page Care Plan Goals: Read below Health Concerns: Read below Plan of Treatment: you were admitted to the hospital for COPD exacerbation. Treated with steroids, antibiotics and nebulizer with good response. Assessment: Continue prednisone and cough medication as prescribed
--- NOTE | 2021-04-06 11:24 | MHC.CM.PN ---
PATIENT IS DISCHARGED HOME WITH NO SERVICES. RN AWARE.
[2021-04-06 11:53] VITALS: BP 108/55; PULSE 74; RESP 18; TEMP 37.1; O2SAT 99
== END 2021-04-06 12:00 | disposition home or self-care (01) ==
LOC: HO.ED 14:34 → HO.EDOVER 15:11 → HO.S3 15:18
PROVIDERS: Physician Assistant Medical; Admitting Provider Student in an Organized Health Care Education/Training Program; Emergency Provider Emergency Medicine Emergency Medical Services; PCP Internal Medicine; Visit Provider Student in an Organized Health Care Education/Training Program
DX: J20.9 Acute bronchitis, unspecified (principal); J44.9 Chronic obstructive pulmonary disease, unspecified; J44.1 Chronic obstructive pulmonary disease with (acute) exacerbation; J45.901 Unspecified asthma with (acute) exacerbation; K21.9 Gastro-esophageal reflux disease without esophagitis; I10 Essential (primary) hypertension; E78.5 Hyperlipidemia, unspecified; E03.9 Hypothyroidism, unspecified; I48.91 Unspecified atrial fibrillation; R94.31 Abnormal electrocardiogram [ECG] [EKG]; Z87.891 Personal history of nicotine dependence; Z79.52 Long term (current) use of systemic steroids; Z79.51 Long term (current) use of inhaled steroids; Z79.899 Other long term (current) drug therapy
CPT/HCPCS: 36415; 71045; 80048; 80053; 81001; 83605; 83735; 83880; 84484; 85025; 85610; 87040; 87633; 93005; 94640; 94644; 96361; 96365; 96366; 96367; 96375; 99218; 99284; 99285; 99291; J0696; J1940; J2920; J2930; J3475

== ENCOUNTER → 2021-04-07 13:02 | Outpatient (BNVA) | payer MEDICARE, SELFPAY | PROVIDERS: PCP Internal Medicine; Visit Provider Nurse Practitioner Family | DX: I48.91 Unspecified atrial fibrillation (principal); I48.0 Paroxysmal atrial fibrillation; I10 Essential (primary) hypertension; E78.5 Hyperlipidemia, unspecified | CPT/HCPCS: 99212 ==

== ENCOUNTER 2021-06-30 08:37 | Observation (INO) | payer MEDICARE, SELFPAY ==
[2021-06-30] VITALS (9 sets, daily range): BP systolic 126–167; BP diastolic 60–80; PULSE 76–102; RESP 18–19; TEMP 36.5–36.7; O2SAT 90–100; BMI 25.0
--- NOTE | ~2021-06-30 | XR_ITS ---
EXAMINATION: XR CHEST CLINICAL INFORMATION: Dyspnea COMPARISON: Previous chest x-rays most recent April [address] November 2020 TECHNIQUE: Frontal view of the chest was obtained. FINDINGS: The cardiac and mediastinal contours are stable. There is a small 4 mm nodule at the left lung apex that is stable. When compared with prior CT scan of the chest this probably represents a calcified granuloma. There is central bronchial wall thickening, left greater than right. The lungs are otherwise clear without evidence of a pneumonia. There is no pleural effusion or pneumothorax. There are degenerative changes of the spine. XR/XR chest 1V IMPRESSION: Central bronchial wall thickening suggestive of asthma or bronchitis. No evidence of pneumonia. Stable 4 mm left upper lobe nodule probably representing a calcified granuloma.
--- NOTE | 2021-06-30 08:46 | ED_ITS ---
HPI - Asthma General Chief Complaint: Dyspnea Stated Complaint: INCREASED SOB X'S 1WEEK,100% ON DUONEB Time Seen by Provider: 06/30/21 08:45 Source: patient, EMS and old records reviewed Mode of arrival: EMS Limitations: no limitations History of Present Illness MD complaint: shortness of breath and wheezing Onset (ago): week(s) (1) Severity: moderate Context: other (states the weather has bothered her) Associated symptoms: dry cough Asthma History: history of frequent attacks Treatments Prior to Arrival: inhaled bronchodilator Related Data Home Medications Medication Instructions Recorded Confirmed loratadine 10 mg tablet 1 tab PO DAILY 02/07/21 06/30/21 aripiprazole 5 mg tablet 5 mg PO DAILY 02/17/21 06/30/21 buspirone 5 mg tablet 5 mg PO BID 02/17/21 06/30/21 escitalopram oxalate 10 mg tablet 10 mg PO DAILY 02/17/21 06/30/21 albuterol sulfate 1 vial INHALATION Q4H PRN 04/04/21 06/30/21 dronedarone 400 mg tablet (Multaq) 400 mg PO BID 04/04/21 06/30/21 prednisone 5 mg tablet 5 mg PO DAILY 04/04/21 06/30/21 Previous Rx's Medication Instructions Recorded omeprazole 20 mg capsule,delayed 20 mg PO DAILY 90 Days #90 cap 11/10/20 release levothyroxine 25 mcg tablet 25 mcg PO DAILY 90 Days #90 tab 01/08/21 rosuvastatin 5 mg tablet 5 mg PO DAILY 90 Days #90 tab 01/14/21 apixaban 5 mg tablet (Eliquis) 5 mg PO BID #60 tab 01/30/21 umeclidinium 62.5 mcg/actuation 1 inh INHALATION DAILY 30 Days #30 02/17/21 blister powder for inhalation ea (Incruse Ellipta) budesonide 0.5 mg/2 mL suspension 0.5 mg INHALATION BID 30 Days #120 05/21/21 for nebulization ml diltiazem HCl 120 mg 120 mg PO DAILY #30 cap 06/01/21 capsule,extended release 24 hr (Cardizem CD) acetic acid 2 % ear solution 3 drp OTIC (EAR) LEFT Q6H 15 Days 06/16/21 #15 ml albuterol sulfate 90 mcg/actuation 2 inh INHALATION Q6H PRN 30 Days 06/30/21 aerosol inhaler #18 g benzonatate 200 mg capsule 200 mg PO BID PRN 30 Days #30 cap 06/30/21 Allergies Allergy/AdvReac Type Severity Reaction Status Date / Time levofloxacin [From LEVAQUIN] Allergy Intermediate RASH SOB, Verified 06/16/21 12:45 DIZZYNESS sulfamethoxazole Allergy Unknown Verified 06/16/21 12:45 [From Bactrim] trimethoprim [From Bactrim] Allergy Unknown Verified 06/16/21 12:45 acetaminophen AdvReac Intermediate vomitting Verified 06/30/21 09:07 [Tylenol-Codeine #3] atorvastatin [Lipitor] AdvReac Intermediate nausea Verified 06/30/21 09:07 codeine [CODEINE] AdvReac Intermediate NAUSEA & Verified 06/16/21 12:45 VOMITING morphine [MORPHINE] AdvReac Intermediate NAUSEA & Verified 06/16/21 12:45 VOMITING pravastatin AdvReac Intermediate myalgia Verified 06/16/21 12:45 Review of Systems Review of Systems: Constitutional : No Fever, pos Chills ENT/Mouth : No Hoarseness, No sore throat, No Rhinorrhea Eyes: No Redness, No Discharge, No Vision Changes Cardiovascular : No Chest Pain, positive SOB, positive Dyspnea on Exertion, No E eric Respiratory : positive Cough, No Sputum, positive Wheezing, Gastrointestinal : No Nausea, No Vomiting, No Diarrhea, No abdominal Pain Genitourinary : No Dysuria, No Hematuria Musculoskeletal : No joint pain, No Myalgias Skin : No rash Neuro : No Weakness, No Numbness, No Headache Psych : No anxiety, depression Heme/Lymph: No Bruising, No Bleeding Endocrine : No Polyuria, No Polydipsia All other systems reviewed and are negative [facility] Past Medical History Attestation statement: The following information was validated with the patient. Medical History Asthma Bronchitis Chronic allergic rhinitis COPD (chronic obstructive pulmonary disease) Dyslipidemia Eosinophilia GERD (gastroesophageal reflux disease) HTN (hypertension) Hypothyroidism Paroxysmal atrial fibrillation Pneumonia Steroid dependent Surgical History History of knee surgery History of nasal polypectomy History of shoulder surgery History of tubal ligation Family History Family History (Updated 09/14/21 @ 12:41 by CONNIE Valdovinos) Father Medical history unknown Mother Medical history unknown Social History Social History Household Members: None Housing: Apartment Do you presently have visiting nurse or other home services: No Alcohol intake: former Patient Tobacco Use Status: Former Tobacco user Tobacco use type: Cigarette e-Cigarette/Vaping Use: Never Used Second Hand Smoke Exposure: No Use of substances other than those prescribed or required for medical reasons: No Advance Directives: Yes Advance Directives on File: Yes Advance Directives Date on File: 11/10/20 service: No Current occupational status: disabled Physical Exam Vital Signs: Vital Signs: Last Vital Signs Temp 97.8 F 06/30/21 09:18 Pulse 81 06/30/21 09:27 Resp 18 06/30/21 09:18 BP 144/60 H 06/30/21 09:18 Pulse Ox 98 06/30/21 09:18 Body Mass Index 25.0 Appearance: Alert. Oriented X3. No acute distress. Eyes: Pupils equal, round and reactive to light. ENT: Pharynx normal. Neck: Normal inspection. Neck supple. CVS: Normal heart rate and rhythm. Pulses normal. Respiratory: No respiratory distress. Breath sounds diffuse exp wheezes and rhonchi - coarse cough Abdomen: Soft and nontender. Skin: Skin warm and dry. Normal skin color. Normal skin turgor. Extremities: No lower extremity edema. No calf ttp Neuro: Oriented X 3. No motor deficit. No sensory deficit. Course Course Course Narrative: still very coarse and tachypneic will admit for COPD and bronchitis MDM - Asthma MDM Narrative Medical decision making narrative: 70 yo female with COPD, HTN, YOLA, HLD, afib on OAC here with 1 week of wheezing, worsening shortness of breath, cough - at this time will need 5mg neb, IV steroids, CXR< COVID swab, start empiric antibiotics for COPD exacerbation, dispo per results and findings. Lab Data Result diagrams: 06/30/21 09:13 06/30/21 09:13 Labs: Lab Results 06/30/21 06/30/21 06/30/21 Range/Units 09:13 09:13 09:13 WBC 7.2 (4.8-10.8) X10*3/uL RBC 4.68 (4.20-5.50) X10*6/uL Hgb 12.4 (12.0-16.0) g/dl Hct 40.6 (37-47) % MCV 86.8 (80-98) fL MCH 26.5 L (27.0-33.0) pg MCHC 30.5 L (31.0-35.0) g/dl RDW 14.5 (11.0-16.0) % Plt Count 386 (160-400) X10*3/uL MPV 9.1 L (9.4-12.3) fL Immature Gran % (Auto) 0.3 (0.0-0.4) % Neut % (Auto) 42.1 L (45-73) % Lymph % (Auto) 37.8 (20-40) % [place] % (Auto) 8.5 (2-11) % Eos % (Auto) 10.0 H (0-4) % Baso % (Auto) 1.3 (0-2) % Lymph # (Auto) 2.7 (1.2-4.9) X10*3/uL [place] # (Auto) 0.6 (0.1-1.2) X10*3/uL Eos # (Auto) 0.7 H (0.0-0.4) X10*3/uL Baso # (Auto) 0.1 (0.0-0.2) X10*3/uL Abs Immat Gran (auto) 0.02 (0.00-0.03) X10*3/uL Absolute Neuts (auto) 3.0 (2.0-8.3) X10*3/uL Absolute Nucleated RBC 0.000 (0.0-0.012) X10*3/uL Nucleated RBC % (auto) 0.0 (0.0-0.2) /100WBC VBG pH (7.32-7.43) VBG pCO2 mmHg VBG pO2 mmHg VBG HCO3 (22-26) mmol/L VBG O2 Saturation % VBG Base Excess mmol/L Sodium 142 (135-145) mmol/L Potassium 3.8 D (3.3-5.1) mmol/L Chloride 107 (96-108) mmol/L Carbon Dioxide 25 (22-29) mmol/L Anion Gap 14 (12-20) BUN 20 H (9-16) mg/dL Creatinine 1.21 (0.5-1.4) mg/dL Estim Creat Clear Calc 38.3 Estimated GFR 44 Random Glucose 104 (60-115) mg/dL Lactic Acid (0.5-2.0) mmol/L Calcium 9.5 (8.4-10.2) mg/dL Magnesium 2.0 (1.6-2.6) mg/dL Total Bilirubin 0.4 (0.0-1.0) mg/dL Direct Bilirubin < 0.2 (0.0-0.5) mg/dL AST 17 (5-31) U/L ALT 14 (0-31) U/L Alkaline Phosphatase 73 (39-117) U/L Troponin I High Sens (<3.5-17.0) ng/L B-Natriuretic Peptide 113 H (<100) pg/mL Total Protein 7.2 (6.5-8.0) g/dL Albumin 4.3 (3.5-5.0) g/dL COVID-19 (ROBLES) (Negative) COVID-19 Clin Com 06/30/21 06/30/21 06/30/21 Range/Units 09:13 09:13 09:13 WBC (4.8-10.8) X10*3/uL RBC (4.20-5.50) X10*6/uL Hgb (12.0-16.0) g/dl Hct (37-47) % MCV (80-98) fL MCH (27.0-33.0) pg MCHC (31.0-35.0) g/dl RDW (11.0-16.0) % Plt Count (160-400) X10*3/uL MPV (9.4-12.3) fL Immature Gran % (Auto) (0.0-0.4) % Neut % (Auto) (45-73) % Lymph % (Auto) (20-40) % [place] % (Auto) (2-11) % Eos % (Auto) (0-4) % Baso % (Auto) (0-2) % Lymph # (Auto) (1.2-4.9) X10*3/uL [place] # (Auto) (0.1-1.2) X10*3/uL Eos # (Auto) (0.0-0.4) X10*3/uL Baso # (Auto) (0.0-0.2) X10*3/uL Abs Immat Gran (auto) (0.00-0.03) X10*3/uL Absolute Neuts (auto) (2.0-8.3) X10*3/uL Absolute Nucleated RBC (0.0-0.012) X10*3/uL Nucleated RBC % (auto) (0.0-0.2) /100WBC VBG pH (7.32-7.43) VBG pCO2 mmHg VBG pO2 mmHg VBG HCO3 (22-26) mmol/L VBG O2 Saturation % VBG Base Excess mmol/L Sodium (135-145) mmol/L Potassium (3.3-5.1) mmol/L Chloride (96-108) mmol/L Carbon Dioxide (22-29) mmol/L Anion Gap (12-20) BUN (9-16) mg/dL Creatinine (0.5-1.4) mg/dL Estim Creat Clear Calc Estimated GFR Random Glucose (60-115) mg/dL Lactic Acid 1.6 (0.5-2.0) mmol/L Calcium (8.4-10.2) mg/dL Magnesium (1.6-2.6) mg/dL Total Bilirubin (0.0-1.0) mg/dL Direct Bilirubin (0.0-0.5) mg/dL AST (5-31) U/L ALT (0-31) U/L Alkaline Phosphatase (39-117) U/L Troponin I High Sens < 3.5 (<3.5-17.0) ng/L B-Natriuretic Peptide (<100) pg/mL Total Protein (6.5-8.0) g/dL Albumin (3.5-5.0) g/dL COVID-19 (ROBLES) Negative (Negative) COVID-19 Clin Com See Note 06/30/21 Range/Units 09:28 WBC (4.8-10.8) X10*3/uL RBC (4.20-5.50) X10*6/uL Hgb (12.0-16.0) g/dl Hct (37-47) % MCV (80-98) fL MCH (27.0-33.0) pg MCHC (31.0-35.0) g/dl RDW (11.0-16.0) % Plt Count (160-400) X10*3/uL MPV (9.4-12.3) fL Immature Gran % (Auto) (0.0-0.4) % Neut % (Auto) (45-73) % Lymph % (Auto) (20-40) % [place] % (Auto) (2-11) % Eos % (Auto) (0-4) % Baso % (Auto) (0-2) % Lymph # (Auto) (1.2-4.9) X10*3/uL [place] # (Auto) (0.1-1.2) X10*3/uL Eos # (Auto) (0.0-0.4) X10*3/uL Baso # (Auto) (0.0-0.2) X10*3/uL Abs Immat Gran (auto) (0.00-0.03) X10*3/uL Absolute Neuts (auto) (2.0-8.3) X10*3/uL Absolute Nucleated RBC (0.0-0.012) X10*3/uL Nucleated RBC % (auto) (0.0-0.2) /100WBC VBG pH 7.37 (7.32-7.43) VBG pCO2 48 mmHg VBG pO2 46 mmHg VBG HCO3 28 H (22-26) mmol/L VBG O2 Saturation 69.0 % VBG Base Excess 2.3 mmol/L Sodium (135-145) mmol/L Potassium (3.3-5.1) mmol/L Chloride (96-108) mmol/L Carbon Dioxide (22-29) mmol/L Anion Gap (12-20) BUN (9-16) mg/dL Creatinine (0.5-1.4) mg/dL Estim Creat Clear Calc Estimated GFR Random Glucose (60-115) mg/dL Lactic Acid (0.5-2.0) mmol/L Calcium (8.4-10.2) mg/dL Magnesium (1.6-2.6) mg/dL Total Bilirubin (0.0-1.0) mg/dL Direct Bilirubin (0.0-0.5) mg/dL AST (5-31) U/L ALT (0-31) U/L Alkaline Phosphatase (39-117) U/L Troponin I High Sens (<3.5-17.0) ng/L B-Natriuretic Peptide (<100) pg/mL Total Protein (6.5-8.0) g/dL Albumin (3.5-5.0) g/dL COVID-19 (ROBLES) (Negative) COVID-19 Clin Com ECG Data Attestation: I personally reviewed and interpreted this ECG as follows: ECG interpretation date: 06/30/21 ECG interpretation time: 09:29 Interpretation: Rate: 85 Rhythm: NSR [place]: left, LVH Normal P waves. Normal FELICIANO. Normal QRS complex. ST T wave : normal no JORDEN qTC: normal no acute ischemia The study has been interpreted contemporaneously by me. . Discharge Plan Discharge Clinical Impression: COPD (chronic obstructive pulmonary disease), Bronchitis Patient Disposition: Admitted As Inpatient Prescriptions: No Action omeprazole 20 mg capsule,delayed release(DR/EC) 20 mg PO DAILY 90 Days Qty: 90 RF: 3 levothyroxine 25 mcg tablet 25 mcg PO DAILY 90 Days Qty: 90 RF: 1 Eliquis 5 mg tablet 5 mg PO BID Qty: 60 RF: 5 budesonide 0.5 mg/2 mL suspension for nebulization 0.5 mg inhalation BID 30 Days Qty: 120 RF: 11 diltiazem HCl [Cardizem CD] 120 mg capsule,extended release 24hr 120 mg PO DAILY Qty: 30 RF: 5 albuterol sulfate 90 mcg/actuation HFA aerosol inhaler 2 inh inhalation Q6H PRN (Reason: shortness of breath or wheezing) 30 Days Qty: 18 RF: 12 benzonatate 200 mg capsule 200 mg PO BID PRN (Reason: cough) 30 Days Qty: 30 RF: 3 albuterol sulfate 2.5 mg /3 mL (0.083 %) solution for nebulization 1 vial inhalation Q4H PRN (Reason: wheezing) RF: 0 prednisone 5 mg Tablet 5 mg PO DAILY RF: 0 Multaq 400 mg Tablet 400 mg PO BID RF: 0 loratadine 10 mg tablet 1 tab PO DAILY RF: 0 rosuvastatin 5 mg tablet 5 mg PO DAILY 90 Days Qty: 90 RF: 3 acetic acid 2 % solution 3 drp otic (ear) left Q6H 15 Days Qty: 15 RF: 1 aripiprazole 5 mg tablet 5 mg PO DAILY RF: 0 escitalopram oxalate 10 mg tablet 10 mg PO DAILY RF: 0 buspirone 5 mg tablet 5 mg PO BID RF: 0 Incruse Ellipta 62.5 mcg/actuation blister with device 1 inh inhalation DAILY 30 Days Qty: 30 RF: 11
--- NOTE | 2021-06-30 08:53 | ECG_ITS ---
Test Reason : SHORT OF BREATH Blood Pressure : / mmHG Vent. Rate : 082 BPM Atrial Rate : 082 BPM P-R Int : 146 ms QRS Dur : 084 ms QT Int : 374 ms P-R-T Axes : 000 202 169 degrees QTc Int : 436 ms Normal sinus rhythm Right superior axis deviation T wave abnormality, consider inferior ischemia Abnormal ECG When compared with ECG of 04-APR-2021 11:32, QRS axis Shifted left Criteria for Inferior infarct are no longer Present Referred By: Jamila Esparza Electronically Signed By:
[2021-06-30 09:20] LABS: MANUAL DIFF FLAG NO
[2021-06-30] MEDS: Albuterol Sulfate (0.083%) 2.5 MG/3 ML VIAL.NEB 5 MG INHALE (09:24)
[2021-06-30 09:25] LABS: Basophils Absolute Auto 0.1 X10*3/uL (0.0-0.2); Basophils Percent Auto 1.3 % (0-2); Eosinophils Absolute Auto 0.7 X10*3/uL (0.0-0.4); Hematocrit 40.6 % (37-47); Hemoglobin 12.4 g/dl (12.0-16.0); Imm Gran Abs Auto 0.02 X10*3/uL (0.00-0.03); Imm Gran Pct Auto 0.3 % (0.0-0.4); Lymphocytes Absolute Auto 2.7 X10*3/uL (1.2-4.9); Lymphocytes Percent Auto 37.8 % (20-40); Mean Corpuscular HGB Conc 30.5 g/dl (31.0-35.0); Mean Corpuscular Hemoglobin 26.5 pg (27.0-33.0); Mean Corpuscular Volume 86.8 fL (80-98); Mean Platelet Volume 9.1 fL (9.4-12.3); Monocytes Absolute Auto 0.6 X10*3/uL (0.1-1.2); Monocytes Percent Auto 8.5 % (2-11); Neutrophils Percent Auto 42.1 % (45-73); Platelet Count 386 X10*3/uL (160-400); Red Blood Count 4.68 X10*6/uL (4.20-5.50); Red Cell Distribution Width 14.5 % (11.0-16.0); White Blood Count 7.2 X10*3/uL (4.8-10.8)
[2021-06-30] MEDS: methylPREDNISolone Sod Succ 125 MG/2 ML VIAL IVPUSH (09:29)
[2021-06-30] MEDS: cefTRIAXone sodium 1 GM in 0.9 % Sodium Chloride 50 ML IV (09:30)
[2021-06-30 09:33] LABS: VBG Base Excess 2.3 mmol/L; VBG HCO3 28 mmol/L (22-26); VBG pCO2 48 mmHg; VBG pH 7.37 (7.32-7.43); VBG pO2 46 mmHg
[2021-06-30 09:35] LABS: Lactic Acid 1.6 mmol/L (0.5-2.0)
[2021-06-30 09:36] LABS: Venous Blood Gas Refer to POC result
[2021-06-30 09:39] LABS: Alanine Aminotransferase 14 U/L (0-31); Albumin Level 4.3 g/dL (3.5-5.0); Alkaline Phosphatase 73 U/L (39-117); Anion Gap 14 (12-20); Aspartate Amino Transferase 17 U/L (5-31); Bilirubin Direct < 0.2 mg/dL (0.0-0.5); Bilirubin Total 0.4 mg/dL (0.0-1.0); Blood Urea Nitrogen 20 mg/dL (9-16); Calcium 9.5 mg/dL (8.4-10.2); Carbon Dioxide 25 mmol/L (22-29); Chloride 107 mmol/L (96-108); Creatinine Clr Calc Pharmacy 38.3; Estimated Glomerular Filt Rate 44; Glucose Random 104 mg/dL (60-115); Potassium 3.8 mmol/L (3.3-5.1); Sodium 142 mmol/L (135-145); Total Protein 7.2 g/dL (6.5-8.0)
[2021-06-30 09:43] LABS: Troponin-I High Sensitivity < 3.5 ng/L (<3.5-17.0)
[2021-06-30 09:45] LABS: B Type Natriuretic Peptide 113 pg/mL (<100)
[2021-06-30 09:52] LABS: COVID-19 Test Negative (Negative)
[2021-06-30] MEDS: Doxycycline Hyclate 100 MG in 0.9 % Sodium Chloride 250 ML 166.67 MG IV ×2 (09:59→20:20)
--- NOTE | 2021-06-30 10:28 | PM.IMHP ---
History of Present Illness Date of Service: 06/30/21 70-year-old Lithuanian-speaking woman presenting to the ER with complaints of worsening shortness of breath, wheezing and dry cough. She reports that this has been ongoing for about a week. She does have a history of asthma however her inhalers have not been working for her at home. She denies chest pain, nausea, vomiting, diarrhea, recent travel, sick contacts. Chest x-ray showed asthma/possible bronchitis, no consolidation, COVID negative. No hypoxia noted. All labs within acceptable limits. In the ER she received Solu-Medrol, ceftriaxone, doxycycline and albuterol. She will be placed on observation for acute asthma exacerbation Review of Systems Review of Systems: Denies any recent fever chills or decrease in appetite respiratory see above cardiovascular is adjustment of any PND or edema gastrointestinal denies any dysphagia abdominal pain nausea vomiting or diarrhea genitourinary denies any dysuria frequency or hematuria musculoskeletal denies any joint pain or swelling neuropsych denies any weakness or seizures all other systems reviewed are negative [facility] Medical History Asthma Bronchitis Chronic allergic rhinitis COPD (chronic obstructive pulmonary disease) Dyslipidemia Eosinophilia GERD (gastroesophageal reflux disease) HTN (hypertension) Hypothyroidism Paroxysmal atrial fibrillation Pneumonia Steroid dependent Family History (Updated 06/16/21 @ 12:41 by CONNIE Valdovinos) Father Medical history unknown Mother Medical history unknown Pertinent family history: . Surgical History History of knee surgery History of nasal polypectomy History of shoulder surgery History of tubal ligation Social History Household Members: None Housing: Apartment Do you presently have visiting nurse or other home services: No Alcohol intake: former Patient Tobacco Use Status: Former Tobacco user Tobacco use type: Cigarette e-Cigarette/Vaping Use: Never Used Second Hand Smoke Exposure: No Use of substances other than those prescribed or required for medical reasons: No Advance Directives: Yes Advance Directives on File: Yes Advance Directives Date on File: 11/10/20 service: No Current occupational status: disabled Meds Allergies Allergy/AdvReac Type Severity Reaction Status Date / Time levofloxacin [From LEVAQUIN] Allergy Intermediate RASH SOB, Verified 06/16/21 12:45 DIZZYNESS sulfamethoxazole Allergy Unknown Verified 06/16/21 12:45 [From Bactrim] trimethoprim [From Bactrim] Allergy Unknown Verified 06/16/21 12:45 acetaminophen AdvReac Intermediate vomitting Verified 06/30/21 09:07 [Tylenol-Codeine #3] atorvastatin [Lipitor] AdvReac Intermediate nausea Verified 06/30/21 09:07 codeine [CODEINE] AdvReac Intermediate NAUSEA & Verified 06/16/21 12:45 VOMITING morphine [MORPHINE] AdvReac Intermediate NAUSEA & Verified 06/16/21 12:45 VOMITING pravastatin AdvReac Intermediate myalgia Verified 06/16/21 12:45 Active Medications: Current Medications Acetaminophen (Acetaminophen 325 Mg Tablet) 650 mg PO Q6H PRN PRN Reason: Pain, Mild (Pain Scale 1-3) Doxycycline Hyclate 100 mg/ (Sodium Chloride) 250 mls @ 166.67 mls/hr IV Q12H THANH Methylprednisolone Sodium Succinate (Methylprednisolone Sod Succ 40 Mg/Ml Vial) 40 mg IVPUSH Q12H THANH Ondansetron HCl (Ondansetron Hcl 4 Mg/2 Ml Vial) 4 mg IVPUSH Q8H PRN PRN Reason: Nausea and Vomiting Pharmacy Consult (Consult Rx Perform Med Rec) 1 each MISCELLANE ONCE PRN PRN Reason: Consult order Sodium Chloride (0.9 % Sodium Chloride Flush 3 Ml Syringe) 3 ml IVFLUSH QSHIFT [facility] Home Medications Medication Instructions Recorded Confirmed Last Taken Type loratadine 10 mg tablet 1 tab PO DAILY 02/07/21 06/30/21 04/03/21 History aripiprazole 5 mg tablet 5 mg PO DAILY 02/17/21 06/30/21 04/03/21 History buspirone 5 mg tablet 5 mg PO BID 02/17/21 06/30/21 04/03/21 History escitalopram oxalate 10 mg tablet 10 mg PO DAILY 02/17/21 06/30/21 04/03/21 History albuterol sulfate 1 vial INHALATION Q4H PRN 04/04/21 06/30/21 Unknown History dronedarone 400 mg tablet (Multaq) 400 mg PO BID 04/04/21 06/30/21 1 Day Ago History ~04/03/21 prednisone 5 mg tablet 5 mg PO DAILY 04/04/21 06/30/21 Unknown History Physical Exam Vital Signs and Narrative: Vital Signs: Last Vital Signs Temp 97.8 F 06/30/21 09:18 Pulse 81 06/30/21 09:27 Resp 18 06/30/21 09:18 BP 144/60 H 06/30/21 09:18 Pulse Ox 98 06/30/21 09:18 Body Mass Index 25.0 Appearing in no acute distress head is normocephalic atraumatic eyes pupils are PERRLA sclera is anicteric mouth throat mucous membranes are intact and moist neck is supple no lymphadenopathy, no JVD noted lung sounds expiratory wheezes heart regular rate rhythm, clear S1, S2 positive bowel sounds, abdomen is soft, nontender neuro patient is alert x3, no focal deficits Results Labs CBC and Chem 7: 06/30/21 09:13 06/30/21 09:13 Labs: Laboratory Results - last 24 hr 06/30/21 06/30/21 06/30/21 09:13 09:13 09:13 MCV 86.8 MCH 26.5 L MCHC 30.5 L RDW 14.5 Plt Count 386 MPV 9.1 L Immature Gran % (Auto) 0.3 Neut % (Auto) 42.1 L Lymph % (Auto) 37.8 [place] % (Auto) 8.5 Eos % (Auto) 10.0 H Baso % (Auto) 1.3 Lymph # (Auto) 2.7 [place] # (Auto) 0.6 Eos # (Auto) 0.7 H Baso # (Auto) 0.1 Abs Immat Gran (auto) 0.02 Absolute Neuts (auto) 3.0 Absolute Nucleated RBC 0.000 Nucleated RBC % (auto) 0.0 VBG pH VBG pCO2 VBG pO2 VBG HCO3 VBG O2 Saturation VBG Base Excess Anion Gap 14 Estim Creat Clear Calc 38.3 Estimated GFR 44 Random Glucose 104 Lactic Acid Calcium 9.5 Magnesium 2.0 Total Bilirubin 0.4 Direct Bilirubin < 0.2 AST 17 ALT 14 Alkaline Phosphatase 73 Troponin I High Sens B-Natriuretic Peptide 113 H Total Protein 7.2 Albumin 4.3 COVID-19 (ROBLES) COVID-19 Clin Com 06/30/21 06/30/21 06/30/21 09:13 09:13 09:13 MCV MCH MCHC RDW Plt Count MPV Immature Gran % (Auto) Neut % (Auto) Lymph % (Auto) [place] % (Auto) Eos % (Auto) Baso % (Auto) Lymph # (Auto) [place] # (Auto) Eos # (Auto) Baso # (Auto) Abs Immat Gran (auto) Absolute Neuts (auto) Absolute Nucleated RBC Nucleated RBC % (auto) VBG pH VBG pCO2 VBG pO2 VBG HCO3 VBG O2 Saturation VBG Base Excess Anion Gap Estim Creat Clear Calc Estimated GFR Random Glucose Lactic Acid 1.6 Calcium Magnesium Total Bilirubin Direct Bilirubin AST ALT Alkaline Phosphatase Troponin I High Sens < 3.5 B-Natriuretic Peptide Total Protein Albumin COVID-19 (ROBLES) Negative COVID-19 Clin Com See Note 06/30/21 09:28 MCV MCH MCHC RDW Plt Count MPV Immature Gran % (Auto) Neut % (Auto) Lymph % (Auto) [place] % (Auto) Eos % (Auto) Baso % (Auto) Lymph # (Auto) [place] # (Auto) Eos # (Auto) Baso # (Auto) Abs Immat Gran (auto) Absolute Neuts (auto) Absolute Nucleated RBC Nucleated RBC % (auto) VBG pH 7.37 VBG pCO2 48 VBG pO2 46 VBG HCO3 28 H VBG O2 Saturation 69.0 VBG Base Excess 2.3 Anion Gap Estim Creat Clear Calc Estimated GFR Random Glucose Lactic Acid Calcium Magnesium Total Bilirubin Direct Bilirubin AST ALT Alkaline Phosphatase Troponin I High Sens B-Natriuretic Peptide Total Protein Albumin COVID-19 (ROBLES) COVID-19 Clin Com Imaging Radiologist's Impressions: Impressions Chest X-Ray 06/30/21 08:53 IMPRESSION: Central bronchial wall thickening suggestive of asthma or bronchitis. No evidence of pneumonia. Stable 4 mm left upper lobe nodule probably representing a calcified granuloma. Assessment and Plan (1) COPD (chronic obstructive pulmonary disease): Qualifiers: COPD type: COPD with acute exacerbation Qualified Code(s): J44.1 - Chronic obstructive pulmonary disease with (acute) exacerbation Status: Acute (2) Bronchitis: Status: Acute (3) Asthma: Qualifiers: Asthma complication type: unspecified Asthma persistence: unspecified Asthma severity: unspecified severity Qualified Code(s): J45.909 - Unspecified asthma, uncomplicated Status: Acute 70 year old women admitted with acute asthma exacerbation. Asthma exacerbation Solumedrol, duonebs Supplemental oxygen as needed Bronchitis. Doxycycline DVT prophylaxis with [facility] Attending Dr. Treadwell Quality Stroke Does the patient have a stroke diagnosis?: No VTE Prior VTE?: No VTE Risk Level:: Medical - moderate - high VTE Device Contraindication: Treatment Not Indicated VTE Drug Contraindication: N/A - Med Ordered
--- NOTE | 2021-06-30 13:37 | PHA.MEDREC ---
Pharmacy Consult ? Medication Reconciliation Pharmacy has completed the medication reconciliation.
[2021-06-30] MEDS: guaiFENesin 100 MG/5 ML LIQUID PO ×2 (14:54→20:11)
[2021-06-30] MEDS: Albuterol/Iprat 2.5/0.5MG 3 ML AMPUL.NEB INHALE ×2 (15:24→19:32)
[2021-06-30] MEDS: 0.9 % Sodium Chloride Flush 3 ML SYRINGE IVFLUSH ×2 (17:18→23:06)
[2021-06-30] MEDS: methylPREDNISolone Sod Succ 40 MG/ML VIAL IVPUSH (20:11)
[2021-06-30] MEDS: Apixaban 5 MG TABLET PO (20:19)
[2021-06-30] MEDS: Dronedarone HCl 400 MG TABLET PO (20:19)
[2021-07-01] MEDS: guaiFENesin 100 MG/5 ML LIQUID PO ×2 (02:56→07:39)
[2021-07-01 03:32] VITALS: BP 125/67; PULSE 95; RESP 18; TEMP 36.4; O2SAT 96
[2021-07-01] MEDS: Omeprazole 20 MG CAPSULE.DR PO (05:30)
[2021-07-01] MEDS: Levothyroxine Sodium 25 MCG TABLET PO (05:30)
[2021-07-01 06:26] LABS: Hematocrit 39.4 % (37-47); Hemoglobin 11.9 g/dl (12.0-16.0); Mean Corpuscular HGB Conc 30.2 g/dl (31.0-35.0); Mean Corpuscular Hemoglobin 26.2 pg (27.0-33.0); Mean Corpuscular Volume 86.8 fL (80-98); Mean Platelet Volume 9.5 fL (9.4-12.3); Platelet Count 428 X10*3/uL (160-400); Red Blood Count 4.54 X10*6/uL (4.20-5.50); Red Cell Distribution Width 14.8 % (11.0-16.0); White Blood Count 11.8 X10*3/uL (4.8-10.8)
[2021-07-01 07:37] VITALS: BP 147/69; PULSE 84; RESP 20; TEMP 36.7; O2SAT 98
[2021-07-01 07:39] VITALS: BP 147/69; PULSE 84
[2021-07-01] MEDS: methylPREDNISolone Sod Succ 40 MG/ML VIAL IVPUSH (07:39)
[2021-07-01] MEDS: 0.9 % Sodium Chloride Flush 3 ML SYRINGE IVFLUSH (07:39)
[2021-07-01] MEDS: dilTIAZem HCL CD 120 MG CAP.ER.DEG PO (07:39)
[2021-07-01] MEDS: busPIRone HCl 5 MG TABLET PO (07:39)
[2021-07-01] MEDS: ARIPiprazole 5 MG TABLET PO (07:39)
[2021-07-01] MEDS: Loratadine 10 MG TABLET PO (07:40)
[2021-07-01] MEDS: Escitalopram Oxalate 10 MG TABLET PO (07:40)
[2021-07-01] MEDS: Atorvastatin Calcium 20 MG TABLET PO (07:41)
[2021-07-01] MEDS: Apixaban 5 MG TABLET PO (07:41)
[2021-07-01] MEDS: Doxycycline Hyclate 100 MG in 0.9 % Sodium Chloride 250 ML 166.67 MG IV (07:42)
[2021-07-01] MEDS: Dronedarone HCl 400 MG TABLET PO (07:42)
[2021-07-01] MEDS: Albuterol/Iprat 2.5/0.5MG 3 ML AMPUL.NEB INHALE ×2 (08:34→11:40)
[2021-07-01 08:35] VITALS: PULSE 94; O2SAT 94
--- NOTE | 2021-07-01 10:02 | MHC.CM.PN ---
DIONE 07/01/21 Female 70 DX asthma exacerbation. She lives alone and is independent. DP home no services via taxi voucher. Patient is discharged today. A taxi Voucher has been provided.
--- NOTE | 2021-07-01 10:48 | P.DS_ITS ---
DS: Providers Provider Date of Service: 07/01/21 Date of admission: 06/30/21 10:23 Primary care physician: Angelique Valentine MD Attending physician on discharge: Raheem Treadwell Discharging clinician: Isabel Pinon DS: Diagnosis Discharge Diagnosis (1) Bronchitis: Status: Acute (2) Asthma: Status: Acute DS: Summary Hospital Course Hospital Course: HP as per admitting provider 70-year-old Yoruba-speaking woman presenting to the ER with complaints of worsening shortness of breath, wheezing and dry cough.? She reports that this has been ongoing for about a week.? She does have a history of asthma however her inhalers have not been working for her at home.? She denies chest pain, nausea, vomiting, diarrhea, recent travel, sick contacts.? Chest x-ray showed asthma/possible bronchitis, no consolidation, COVID negative.? No hypoxia noted.? All labs within acceptable limits.? In the ER she received Solu-Medrol, ceftriaxone, doxycycline and albuterol.? She will be placed on observation for acute asthma exacerbation . Asthma exacerbation . with treated with IV Solu-Medrol, scheduled albuterol treatments and doxycycline for bronchitis. Patient was not hypoxic, she received supplemental oxygen. At this time she does not have any shortness of breath and her wheezing is very minimal. Patient requested to go home and at this point she is medically stable for discharge. She will go home on 4 more days of oral prednisone and doxycycline. Time Spent with Patient Time attestation: Total time spent providing and/or coordinating discharge services: Discharge coordination time: Greater than 30 minutes Quality: Stroke Does the patient have a stroke diagnosis?: No Physical Exam Vital Signs: Vital Signs: Last Vital Signs Temp 98.0 F 07/01/21 07:37 Pulse 94 07/01/21 08:35 Resp 20 07/01/21 07:37 BP 147/69 H 07/01/21 07:39 Pulse Ox 98 07/01/21 07:37 Body Mass Index 25.0 Appearing in no acute distress head is normocephalic atraumatic eyes pupils are PERRLA sclera is anicteric mouth throat mucous membranes are intact and moist neck is supple no lymphadenopathy, no JVD noted lung sounds are clear to auscultation heart regular rate rhythm, clear S1, S2 positive bowel sounds, abdomen is soft, nontender neuro patient is alert x3, no focal deficits DS: Data Data Completed and Pending Labs on day of discharge: Laboratory Results - last 24 hr 07/01/21 05:53 WBC 11.8 H RBC 4.54 Hgb 11.9 L Hct 39.4 MCV 86.8 MCH 26.2 L MCHC 30.2 L RDW 14.8 Plt Count 428 H MPV 9.5 Absolute Nucleated RBC 0.000 Nucleated RBC % (auto) 0.0 Discharge Plan Discharge Anticipated Discharge Date/Time: 07/01/21 10:11 Patient Disposition: Home, Self-Care Discharge Diagnosis: bronchitis, asthma exacerbation Referrals: Angelique Li MD [Primary Care Provider] - 1 Week Discharge Medications: New ipratropium-albuterol 0.5 mg-3 mg(2.5 mg base)/3 mL solution for nebulization 3 ml inhalation Q6H PRN (Reason: shortness of breath or wheezing) Qty: 180 RF: 0 prednisone 10 mg tablet 40 mg PO DAILY Qty: 16 RF: 0 doxycycline hyclate 100 mg tablet 100 mg PO BID Qty: 6 RF: 0 Continued omeprazole 20 mg capsule,delayed release(DR/EC) 20 mg PO DAILY 90 Days Qty: 90 RF: 3 levothyroxine 25 mcg tablet 25 mcg PO DAILY 90 Days Qty: 90 RF: 1 Eliquis 5 mg tablet 5 mg PO BID Qty: 60 RF: 5 budesonide 0.5 mg/2 mL suspension for nebulization 0.5 mg inhalation BID 30 Days Qty: 120 RF: 11 diltiazem HCl [Cardizem CD] 120 mg capsule,extended release 24hr 120 mg PO DAILY Qty: 30 RF: 5 benzonatate 200 mg capsule 200 mg PO BID PRN (Reason: cough) 30 Days Qty: 30 RF: 3 prednisone 5 mg Tablet 5 mg PO DAILY RF: 0 Multaq 400 mg Tablet 400 mg PO BID RF: 0 loratadine 10 mg tablet 1 tab PO DAILY RF: 0 albuterol sulfate 90 mcg/actuation HFA aerosol inhaler 2 inh inhalation Q6H PRN (Reason: shortness of breath or wheezing) 30 Days Qty: 18 RF: 12 rosuvastatin 5 mg tablet 5 mg PO DAILY 90 Days Qty: 90 RF: 3 acetic acid 2 % solution 3 drp otic (ear) left Q6H 15 Days Qty: 15 RF: 1 aripiprazole 5 mg tablet 5 mg PO DAILY RF: 0 escitalopram oxalate 10 mg tablet 10 mg PO DAILY RF: 0 buspirone 5 mg tablet 5 mg PO BID RF: 0 Incruse Ellipta 62.5 mcg/actuation blister with device 1 inh inhalation DAILY 30 Days Qty: 30 RF: 11 Discontinued albuterol sulfate 2.5 mg /3 mL (0.083 %) solution for nebulization 1 vial inhalation Q4H PRN (Reason: wheezing) RF: 0 Discharge Orders: Discharge Order (Routine); Ordered 07/01/21 Ordered By: Isabel Pinon Diet: advance to usual diet Activity on Discharge: As tolerated Stand Alone Forms: Patient Portal Discharge page Care Plan Goals: complete resolution of asthma symptoms Health Concerns: bronchitis, asthma exacerbation Plan of Treatment: follow-up with her primary care provider as needed Assessment: see discharge summary
[2021-07-01 11:41] VITALS: PULSE 95; O2SAT 94
== END 2021-07-01 13:51 | disposition home or self-care (01) ==
LOC: HO.ED 10:10 → HO.IMC 10:39
PROVIDERS: Admitting Provider Nurse Practitioner Acute Care; Emergency Provider Emergency Medicine; PCP Internal Medicine; Visit Provider Nurse Practitioner Acute Care
DX: J44.1 Chronic obstructive pulmonary disease with (acute) exacerbation (principal); J45.901 Unspecified asthma with (acute) exacerbation; I10 Essential (primary) hypertension; E78.5 Hyperlipidemia, unspecified; E03.9 Hypothyroidism, unspecified; I48.91 Unspecified atrial fibrillation; R94.31 Abnormal electrocardiogram [ECG] [EKG]; Z87.891 Personal history of nicotine dependence; Z20.822 Contact with and (suspected) exposure to COVID-19; Z88.8 Allergy status to other drugs, medicaments and biological substances; Z79.01 Long term (current) use of anticoagulants; Z79.52 Long term (current) use of systemic steroids; Z79.899 Other long term (current) drug therapy
CPT/HCPCS: 36415; 71045; 80048; 80076; 82803; 83605; 83735; 83880; 84484; 85025; 85027; 87040; 87635; 93005; 94640; 94644; 96365; 96366; 96367; 96375; 96376; 99219; 99285; J0696; J2920; J2930

== ENCOUNTER → 2021-07-15 08:55 | Outpatient (BNVA) | payer MEDICARE, SELFPAY | PROVIDERS: PCP Internal Medicine; Visit Provider Hospitalist | DX: J45.909 Unspecified asthma, uncomplicated (principal); J30.9 Allergic rhinitis, unspecified; I48.0 Paroxysmal atrial fibrillation; F19.20 Other psychoactive substance dependence, uncomplicated | CPT/HCPCS: 99212 ==

== ENCOUNTER → 2021-07-23 09:56 | Outpatient (BNVA) | payer MEDICARE, SELFPAY | PROVIDERS: PCP Internal Medicine; Referring Provider Internal Medicine; Visit Provider Internal Medicine Cardiovascular Disease | DX: I48.0 Paroxysmal atrial fibrillation (principal); I10 Essential (primary) hypertension | CPT/HCPCS: 93005; 99212 ==

== ENCOUNTER → 2021-08-05 08:27 | Outpatient (BNVA) | payer MEDICARE, SELFPAY | PROVIDERS: PCP Internal Medicine; Visit Provider Hospitalist | DX: J45.901 Unspecified asthma with (acute) exacerbation (principal); J30.9 Allergic rhinitis, unspecified; J06.9 Acute upper respiratory infection, unspecified; I48.0 Paroxysmal atrial fibrillation; F19.20 Other psychoactive substance dependence, uncomplicated | CPT/HCPCS: Q3014 ==

== ENCOUNTER 2021-08-06 09:28 | Observation (INO) | payer MEDICARE, SELFPAY ==
--- NOTE | 2021-08-06 | ECG_ITS ---
Test Reason : SOB Blood Pressure : / mmHG Vent. Rate : 079 BPM Atrial Rate : 079 BPM P-R Int : 142 ms QRS Dur : 080 ms QT Int : 360 ms P-R-T Axes : 053 -13 025 degrees QTc Int : 412 ms Normal sinus rhythm Minimal voltage criteria for LVH, may be normal variant ( R in aVL ) Borderline ECG When compared with ECG of 30-JUN-2021 09:24, No significant changes seen Referred By: Generic ED Physician Electronically Signed By:LILY RM MD
--- NOTE | ~2021-08-06 | XR_ITS ---
EXAMINATION: XR CHEST CLINICAL INFORMATION: Shortness of breath. COMPARISON: Chest radiograph dated from 06/30/2021. TECHNIQUE: AP view of the chest was obtained. FINDINGS: Unchanged appearance of the cardiomediastinal silhouette. Atherosclerotic disease of the thoracic aorta. Similar central vasculature and interstitial prominence. No dense focal consolidation, pleural effusion or pneumothorax. No acute osseous findings. XR/XR chest 1V IMPRESSION: No significant change with stable interstitial prominence.
[2021-08-06 09:35] VITALS: BP 173/70; PULSE 80; RESP 18; TEMP 36.7; BMI 26.6
[2021-08-06] MEDS: Magnesium Sulfate/H2O 2 GM/50 ML PIGGYBACK IV (10:35)
[2021-08-06] MEDS: methylPREDNISolone Sod Succ 125 MG/2 ML VIAL IVPUSH (10:36)
--- NOTE | 2021-08-06 10:44 | ED.SOB ---
HPI - SOB/Dyspnea General Chief Complaint: Dyspnea Stated Complaint: SOB Time Seen by Provider: 08/06/21 10:03 Source: patient and EMS Mode of arrival: EMS Limitations: language barrier (Andorran-speaking) History of Present Illness HPI Narrative: 70-year-old female with a past medical history of asthma, COPD who?is currently on daily 5 mg prednisone along with albuterol inhaler and nebulized treatments at home, allergic rhinitis, hypothyroidism, hypertension,? hyperlipidemia, atrial fibrillation currently on Coumadin and GERD presenting to the ED via EMS with complaints of chest congestion with associated cough with severe wheezing and chest tightness for the past 2 weeks worse today. She reports she is not vaccinated to COVID. She denies any fevers, chills, dizziness, headaches, neck pain/stiffness, chest pain, dyspnea exertion, orthopnea, palpitations, nausea/vomiting/diarrhea or constipation, abdominal pain, back pain, dysuria, hematuria, black or bloody stools, lower extremity edema or calf tenderness, recent travel or sick contacts or any other symptoms complaints or concerns at this time. She denies ever being intubated. Although she reports she has frequent hospitalizations for her asthma. MD elicited complaint: shortness of breath, cough and asthma attack Pertinent past history: asthma Onset (ago): week(s) (Two weeks worse today) Timing: constant and progressively worsening Severity: similar to previous episodes Exacerbating factors: coughing, inspiration, talking and deep breaths Relieving factors: nothing Known history of: asthma Associated symptoms: pain with inspiration, cough, wheezing, sputum production and chest congestion Treatment prior to arrival: other (She has been using her albuterol inhaler, nebulized solutions at home, and 5 mg of prednisone daily that she is chronically on) Related Data Home Medications Medication Instructions Recorded Confirmed loratadine 10 mg tablet 1 tab PO DAILY 02/07/21 07/23/21 aripiprazole 5 mg tablet 5 mg PO DAILY 02/17/21 07/23/21 buspirone 5 mg tablet 5 mg PO BID 02/17/21 07/23/21 prednisone 5 mg tablet 5 mg PO DAILY 04/04/21 07/23/21 rosuvastatin 10 mg tablet 10 mg PO BEDTIME 07/15/21 07/23/21 fluticasone 250 mcg-salmeterol 50 1 ea INHALATION BID 08/05/21 mcg/dose blistr powdr for inhalation (Wixela Inhub) escitalopram oxalate 10 mg tablet 1 tab PO DAILY 08/06/21 omeprazole 20 mg capsule,delayed 1 cap PO DAILY 08/06/21 release Previous Rx's Medication Instructions Recorded umeclidinium 62.5 mcg/actuation 1 inh INHALATION DAILY 30 Days #30 02/17/21 blister powder for inhalation ea (Incruse Ellipta) diltiazem HCl 120 mg 120 mg PO DAILY #30 cap 06/01/21 capsule,extended release 24 hr (Cardizem CD) acetic acid 2 % ear solution 3 drp OTIC (EAR) LEFT Q6H 15 Days 06/16/21 #15 ml levothyroxine 25 mcg tablet 25 mcg PO DAILY 90 Days #90 tab 07/02/21 albuterol sulfate 90 mcg/actuation 2 inh INHALATION Q6H PRN 30 Days 07/15/21 aerosol inhaler #18 g budesonide 0.5 mg/2 mL suspension 0.5 mg (2 mL) INHALATION BID 30 07/15/21 for nebulization Days #120 ml ipratropium 0.5 mg-albuterol 3 mg 3 ml INHALATION QID #360 ml 07/15/21 (2.5 mg base)/3 mL nebulization soln apixaban 5 mg tablet (Eliquis) 5 mg PO BID #60 tab 07/27/21 dronedarone 400 mg tablet (Multaq) 400 mg PO BID 90 Days #180 tab 07/28/21 dextromethorphan-guaifenesin 10 10 ml PO Q6H PRN 14 Days #400 ml 08/05/21 mg-100 mg/5 mL oral liquid (Adult Tussin Cough Congestion DM) doxycycline hyclate 100 mg capsule 100 mg PO BID 10 Days #20 cap 08/05/21 prednisone 20 mg tablet See Rx Instructions PO DAILY 10 08/05/21 Days #15 tab Allergies Allergy/AdvReac Type Severity Reaction Status Date / Time sulfamethoxazole Allergy Severe Rash Verified 08/05/21 08:29 [From Bactrim] trimethoprim [From Bactrim] Allergy Severe Rash Verified 08/05/21 08:29 levofloxacin [From LEVAQUIN] Allergy Intermediate RASH SOB, Verified 08/05/21 08:29 DIZZYNESS acetaminophen AdvReac Intermediate vomitting Verified 08/05/21 08:29 [Tylenol-Codeine #3] atorvastatin [Lipitor] AdvReac Intermediate nausea Verified 08/05/21 08:29 codeine [CODEINE] AdvReac Intermediate NAUSEA & Verified 08/05/21 08:29 VOMITING morphine [MORPHINE] AdvReac Intermediate NAUSEA & Verified 08/05/21 08:29 VOMITING pravastatin AdvReac Intermediate myalgia Verified 08/05/21 08:29 Review of Systems Review of Systems: Constitutional : denies med noncompliance, no history of PE or DVT, denies recent travel, No Fever, No Chills ENT/Mouth : No Hoarseness, No sore throat, No Rhinorrhea Eyes: No Redness, No Discharge, No Vision Changes Cardiovascular : + chest tightness, No Chest Pain, + SOB, No Dyspnea on Exertion, No Edema, no pleurisy, Respiratory : + cough, + Sputum, + wheezing, no stridor, no hemoptysis, Gastrointestinal : No Nausea, No Vomiting, No Diarrhea, No abdominal Pain Genitourinary : No Dysuria, No Hematuria Musculoskeletal : No joint pain, No Myalgias Extremities: no extremity swelling /pain Skin : No rash, no itching, no swelling Neuro : + general weakness, No focal weakness, No Numbness, No Headache Psych : No anxiety, depression Heme/Lymph: No Bruising, No Bleeding Endocrine : No Polyuria, No Polydipsia Yes all other systems are reviewed and are negative [facility] Past Medical History Attestation statement: The following information was validated with the patient. Medical History Asthma Asthma-COPD overlap syndrome Bronchitis Chronic allergic rhinitis COPD (chronic obstructive pulmonary disease) Dyslipidemia Eosinophilia GERD (gastroesophageal reflux disease) HTN (hypertension) Hypothyroidism Paroxysmal atrial fibrillation Pneumonia Steroid dependent Surgical History History of knee surgery History of nasal polypectomy History of shoulder surgery History of tubal ligation Family History Family History Father Medical history unknown Mother Medical history unknown Social History Social History Household Members: None Housing: House Do you presently have visiting nurse or other home services: Yes Alcohol intake: never Patient Tobacco Use Status: Former Tobacco user Tobacco use type: Cigarette e-Cigarette/Vaping Use: Never Used Second Hand Smoke Exposure: No Use of substances other than those prescribed or required for medical reasons: No Advance Directives: Yes Advance Directives on File: Yes Advance Directives Date on File: 11/10/20 service: No Current occupational status: disabled Physical Exam Vital Signs: Vital Signs: Last Vital Signs Temp 98.0 F 08/06/21 09:35 Pulse 68 08/06/21 10:49 Resp 18 08/06/21 09:35 BP 173/70 H 08/06/21 09:35 Pulse Ox 100 08/06/21 10:59 Body Mass Index 26.6 vital signs have been reviewed as normal and appeared to be correct. Blood pressure hypertensive at 173/70. Heart rate normal. Respiration rate normal. Temperature normal. Oxygen saturation normal. Appearance: Alert. Oriented X3. In acute respiratory distress. Head: Normal external exam. Normocephalic. Atraumatic. Eyes: PERRLA. EOMI. Conjunctiva and sclera normal. Eyelids normal. ENT: Pharynx normal. Uvula midline. Moist mucous membranes. No trismus noted. No drooling noted. No muffled voice noted. Patient tolerating secretions well. Neck: Normal inspection. Neck supple. FROM. No adenopathy. Thyroid Normal. No meningeal signs. No neck mass noted. CVS: Normal heart rate and rhythm. Heart sound normal. Pulses normal throughout. No murmurs/rales/gallops. Respiratory: In acute respiratory distress with decreased breath sounds and inspiratory and expiatory wheezing throughout with accessory muscle usage and tracheal tugging noted. No rales/rhonchi noted. Patient has pain with inspiration Abdomen: Soft and nontender. Bowel sounds normal in all 4 quadrants. No distention noted. No organomegaly noted. No visible injury noted. Back: Full range of motion noted. No rashes/lesion/induration/fluctuance or signs of infection noted. Skin: Skin warm and dry. Normal skin color. Normal skin turgor. No rashes/lesions/lacerations noted. Extremities: No lower extremity edema. No calf tenderness is noted. Extremities exhibit normal range of motion. Extremities nontender. Neuro: Oriented X 3. No motor deficit. No sensory deficit. Reflexes normal. Normal steady gait. No focal neuro deficits noted. Vascular: + radial pulses/+ 2 distal pedal pulses/+2 dorsalis pedis b/l. Normal cap refill. No cyanosis noted to upper extremity nails and lower extremity toes nails. Course Course Course Narrative: 10:25am - 70-year-old female with a past medical history of asthma, COPD who?is currently on daily 5 mg prednisone along with albuterol inhaler and nebulized treatments at home, allergic rhinitis, hypothyroidism, hypertension,? hyperlipidemia, atrial fibrillation currently on Coumadin and GERD presenting to the ED via EMS with complaints of chest congestion with associated cough with severe wheezing and chest tightness for the past 2 weeks worse today. She reports she is not vaccinated to COVID. Frequent hospitalizations for asthma exacerbation. Has never been intubated. On exam patient is alert and oriented x3 and acute respiratory distress although vital signs are stable she is tolerating secretions well although she is noted to have inspiratory and expiratory wheezing throughout with decreased breath sounds and accessory muscle usage in tracheal tugging. CV RRR. Abdomen soft nontender. No CVA tenderness is noted. No lower extremity edema or calf tenderness is noted. Plan: Labs, chest x-ray, EKG, provide an hour long breathing treatment with albuterol, 2 g of magnesium, 125 mg of Solu-Medrol, blood cultures, lactic acid then re-evaluate. Reevaluation(s) Reevaluation #1: - labs returned and patient noted to have a BUN of 20. Magnesium 2.9. Lactic acid 2.1. Otherwise all other labs are within normal limits. COVID swab is negative. - chest x-ray negative for any acute processes. - EKG normal sinus rhythm with a ventricular rate of 79 with minimal voltage criteria for LVH no acute ischemic changes are noted. Similar compared to prior EKG 06/28/2020. - therefore due to mild elevation in lactic acid will give a L of IV fluids and 1 g of Rocephin - Plan to admit due to patient is still very coarse therefore will admit for asthma/COPD exacerbation with bronchitis/bronchospasm. Patient understands agrees with this plan. Time: 12:10 Reevaluation #2: - patient to be admitted to the hospitalist service Naida Welch PA-C admitting at this time Time: 13:19 [facility] - SOB/Dyspnea Medical Records Attestation: I reviewed the patient's medical records. Lab Data Attestation: I reviewed the patient's lab results. Result diagrams: 08/06/21 11:40 08/06/21 11:40 Labs: Lab Results 08/06/21 08/06/21 08/06/21 Range/Units 11:37 11:40 11:40 WBC 8.3 (4.8-10.8) X10*3/uL RBC 4.38 (4.20-5.50) X10*6/uL Hgb 11.8 L (12.0-16.0) g/dl Hct 38.3 (37.0-47.0) % MCV 87.4 (80.0-98.0) fL MCH 26.9 L (27.0-33.0) pg MCHC 30.8 L (31.0-35.0) g/dl RDW 14.5 (11.0-16.0) % Plt Count 390 (160-400) X10*3/uL MPV 9.3 L (9.4-12.3) fL Immature Gran % (Auto) 0.2 (0.0-0.4) % Neut % (Auto) 39.2 L (45-73) % Lymph % (Auto) 33.8 (20-40) % [place] % (Auto) 8.3 (2-11) % Eos % (Auto) 17.1 H (0-4) % Baso % (Auto) 1.4 (0-2) % Lymph # (Auto) 2.8 (1.2-4.9) X10*3/uL [place] # (Auto) 0.7 (0.1-1.2) X10*3/uL Eos # (Auto) 1.4 H (0.0-0.4) X10*3/uL Baso # (Auto) 0.1 (0.0-0.2) X10*3/uL Abs Immat Gran (auto) 0.02 (0.00-0.03) X10*3/uL Absolute Neuts (auto) 3.25 (2.0-8.3) x10*3/uL Absolute Nucleated RBC 0.000 (0.0-0.012) X10*3/uL Nucleated RBC % (auto) 0.0 (0.0-0.2) /100WBC PT 11.8 (9.9-13.0) SEC INR 1.0 (0.9-1.1) VBG pH (7.32-7.43) VBG pCO2 mmHg VBG pO2 mmHg VBG HCO3 (22-26) mmol/L VBG O2 Saturation % VBG Base Excess mmol/L Sodium (135-145) mmol/L Potassium (3.3-5.1) mmol/L Chloride (96-108) mmol/L Carbon Dioxide (22-29) mmol/L Anion Gap (12-20) BUN (9-16) mg/dL Creatinine (0.5-1.4) mg/dL Estim Creat Clear Calc Estimated GFR Random Glucose (60-115) mg/dL Lactic Acid 2.1 H* (0.5-2.0) mmol/L Calcium (8.4-10.2) mg/dL Magnesium (1.6-2.6) mg/dL Total Bilirubin (0.0-1.0) mg/dL AST (5-31) U/L ALT (0-31) U/L Alkaline Phosphatase (39-117) U/L Troponin I High Sens (<3.5-17.0) ng/L B-Natriuretic Peptide (<100) pg/mL Total Protein (6.5-8.0) g/dL Albumin (3.5-5.0) g/dL COVID-19 (ROBLES) (Negative) COVID-19 Clin Com 08/06/21 08/06/21 08/06/21 Range/Units 11:40 11:40 11:41 WBC (4.8-10.8) X10*3/uL RBC (4.20-5.50) X10*6/uL Hgb (12.0-16.0) g/dl Hct (37.0-47.0) % MCV (80.0-98.0) fL MCH (27.0-33.0) pg MCHC (31.0-35.0) g/dl RDW (11.0-16.0) % Plt Count (160-400) X10*3/uL MPV (9.4-12.3) fL Immature Gran % (Auto) (0.0-0.4) % Neut % (Auto) (45-73) % Lymph % (Auto) (20-40) % [place] % (Auto) (2-11) % Eos % (Auto) (0-4) % Baso % (Auto) (0-2) % Lymph # (Auto) (1.2-4.9) X10*3/uL [place] # (Auto) (0.1-1.2) X10*3/uL Eos # (Auto) (0.0-0.4) X10*3/uL Baso # (Auto) (0.0-0.2) X10*3/uL Abs Immat Gran (auto) (0.00-0.03) X10*3/uL Absolute Neuts (auto) (2.0-8.3) x10*3/uL Absolute Nucleated RBC (0.0-0.012) X10*3/uL Nucleated RBC % (auto) (0.0-0.2) /100WBC PT (9.9-13.0) SEC INR (0.9-1.1) VBG pH (7.32-7.43) VBG pCO2 mmHg VBG pO2 mmHg VBG HCO3 (22-26) mmol/L VBG O2 Saturation % VBG Base Excess mmol/L Sodium 141 (135-145) mmol/L Potassium 3.9 (3.3-5.1) mmol/L Chloride 106 (96-108) mmol/L Carbon Dioxide 24 (22-29) mmol/L Anion Gap 15 (12-20) BUN 20 H (9-16) mg/dL Creatinine 1.08 (0.5-1.4) mg/dL Estim Creat Clear Calc 44.3 Estimated GFR 50 Random Glucose 103 (60-115) mg/dL Lactic Acid (0.5-2.0) mmol/L Calcium 9.0 (8.4-10.2) mg/dL Magnesium 2.9 H (1.6-2.6) mg/dL Total Bilirubin 0.2 (0.0-1.0) mg/dL AST 17 (5-31) U/L ALT 12 (0-31) U/L Alkaline Phosphatase 71 (39-117) U/L Troponin I High Sens < 3.5 (<3.5-17.0) ng/L B-Natriuretic Peptide 98 (<100) pg/mL Total Protein 7.0 (6.5-8.0) g/dL Albumin 4.3 (3.5-5.0) g/dL COVID-19 (ROBLES) Negative (Negative) COVID-19 Clin Com See Note 08/06/21 Range/Units 11:47 WBC (4.8-10.8) X10*3/uL RBC (4.20-5.50) X10*6/uL Hgb (12.0-16.0) g/dl Hct (37.0-47.0) % MCV (80.0-98.0) fL MCH (27.0-33.0) pg MCHC (31.0-35.0) g/dl RDW (11.0-16.0) % Plt Count (160-400) X10*3/uL MPV (9.4-12.3) fL Immature Gran % (Auto) (0.0-0.4) % Neut % (Auto) (45-73) % Lymph % (Auto) (20-40) % [place] % (Auto) (2-11) % Eos % (Auto) (0-4) % Baso % (Auto) (0-2) % Lymph # (Auto) (1.2-4.9) X10*3/uL [place] # (Auto) (0.1-1.2) X10*3/uL Eos # (Auto) (0.0-0.4) X10*3/uL Baso # (Auto) (0.0-0.2) X10*3/uL Abs Immat Gran (auto) (0.00-0.03) X10*3/uL Absolute Neuts (auto) (2.0-8.3) x10*3/uL Absolute Nucleated RBC (0.0-0.012) X10*3/uL Nucleated RBC % (auto) (0.0-0.2) /100WBC PT (9.9-13.0) SEC INR (0.9-1.1) VBG pH 7.32 (7.32-7.43) VBG pCO2 47 mmHg VBG pO2 58 mmHg VBG HCO3 24 (22-26) mmol/L VBG O2 Saturation 82.0 % VBG Base Excess -1.8 mmol/L Sodium (135-145) mmol/L Potassium (3.3-5.1) mmol/L Chloride (96-108) mmol/L Carbon Dioxide (22-29) mmol/L Anion Gap (12-20) BUN (9-16) mg/dL Creatinine (0.5-1.4) mg/dL Estim Creat Clear Calc Estimated GFR Random Glucose (60-115) mg/dL Lactic Acid (0.5-2.0) mmol/L Calcium (8.4-10.2) mg/dL Magnesium (1.6-2.6) mg/dL Total Bilirubin (0.0-1.0) mg/dL AST (5-31) U/L ALT (0-31) U/L Alkaline Phosphatase (39-117) U/L Troponin I High Sens (<3.5-17.0) ng/L B-Natriuretic Peptide (<100) pg/mL Total Protein (6.5-8.0) g/dL Albumin (3.5-5.0) g/dL COVID-19 (ROBLES) (Negative) COVID-19 Clin Com Imaging Data Chest x-ray: Attestation: I personally reviewed and interpreted this imaging study as follows: Radiologist's impression: FINDINGS: Unchanged appearance of the cardiomediastinal silhouette. Atherosclerotic disease of the thoracic aorta. Similar central vasculature and interstitial prominence. No dense focal consolidation, pleural effusion or pneumothorax. No acute osseous findings. XR/XR chest 1V IMPRESSION: No significant change with stable interstitial prominence. ECG Data Attestation: I personally reviewed and interpreted this ECG as follows: ECG interpretation date: 08/06/21 ECG interpretation time: 09:47 Interpretation: EKG normal sinus rhythm with a ventricular rate of 79 with minimal voltage criteria for LVH no acute ischemic changes are noted. Similar compared to prior EKG 06/28/2020. Critical Care Time Critical Care Time Critical Care Time: Yes Total Critical Care Time: 60 Attestation: I personally attest to this time spent taking care of the patient Discharge Plan Discharge Clinical Impression: Asthma exacerbation, Acute bronchitis with bronchospasm, COPD exacerbation Patient Disposition: Admitted As Inpatient
[2021-08-06] MEDS: Albuterol Sulfate (0.083%) 2.5 MG/3 ML VIAL.NEB 10 MG INHALE (10:48)
[2021-08-06 10:49] VITALS: PULSE 68; O2SAT 100
[2021-08-06 10:59] VITALS: O2SAT 100
[2021-08-06 11:51] LABS: MANUAL DIFF FLAG NO
[2021-08-06 11:53] LABS: VBG Base Excess -1.8 mmol/L; VBG HCO3 24 mmol/L (22-26); VBG pCO2 47 mmHg; VBG pH 7.32 (7.32-7.43); VBG pO2 58 mmHg
[2021-08-06 11:53] LABS: Basophils Absolute Auto 0.1 X10*3/uL (0.0-0.2); Basophils Percent Auto 1.4 % (0-2); Eosinophils Absolute Auto 1.4 X10*3/uL (0.0-0.4); Eosinophils Percent Auto 17.1 % (0-4); Hematocrit 38.3 % (37.0-47.0); Hemoglobin 11.8 g/dl (12.0-16.0); Imm Gran Abs Auto 0.02 X10*3/uL (0.00-0.03); Imm Gran Pct Auto 0.2 % (0.0-0.4); Lymphocytes Absolute Auto 2.8 X10*3/uL (1.2-4.9); Lymphocytes Percent Auto 33.8 % (20-40); Mean Corpuscular HGB Conc 30.8 g/dl (31.0-35.0); Mean Corpuscular Hemoglobin 26.9 pg (27.0-33.0); Mean Corpuscular Volume 87.4 fL (80.0-98.0); Mean Platelet Volume 9.3 fL (9.4-12.3); Monocytes Absolute Auto 0.7 X10*3/uL (0.1-1.2); Monocytes Percent Auto 8.3 % (2-11); Neutrophils Absolute Auto 3.25 x10*3/uL (2.0-8.3); Neutrophils Percent Auto 39.2 % (45-73); Platelet Count 390 X10*3/uL (160-400); Red Blood Count 4.38 X10*6/uL (4.20-5.50); Red Cell Distribution Width 14.5 % (11.0-16.0); White Blood Count 8.3 X10*3/uL (4.8-10.8)
[2021-08-06 11:54] LABS: Venous Blood Gas Refer to POC result
[2021-08-06 11:59] LABS: Prothrombin Time 11.8 SEC (9.9-13.0)
[2021-08-06 12:08] LABS: COVID-19 Test Negative (Negative); IDNOW Serial# 9DD0AD1C
[2021-08-06 12:09] LABS: Alanine Aminotransferase 12 U/L (0-31); Albumin Level 4.3 g/dL (3.5-5.0); Alkaline Phosphatase 71 U/L (39-117); Anion Gap 15 (12-20); Aspartate Amino Transferase 17 U/L (5-31); Bilirubin Total 0.2 mg/dL (0.0-1.0); Blood Urea Nitrogen 20 mg/dL (9-16); Carbon Dioxide 24 mmol/L (22-29); Chloride 106 mmol/L (96-108); Creatinine Clr Calc Pharmacy 44.3; Estimated Glomerular Filt Rate 50; Glucose Random 103 mg/dL (60-115); Magnesium 2.9 mg/dL (1.6-2.6); Potassium 3.9 mmol/L (3.3-5.1); Sodium 141 mmol/L (135-145)
[2021-08-06 12:09] LABS: Lactic Acid 2.1 mmol/L (0.5-2.0)
[2021-08-06 12:13] LABS: B Type Natriuretic Peptide 98 pg/mL (<100); Troponin-I High Sensitivity < 3.5 ng/L (<3.5-17.0)
[2021-08-06] MEDS: 0.9 % Sodium Chloride 1,000 ML 999 ML IVCONT (12:16)
[2021-08-06] MEDS: cefTRIAXone sodium 1 GM in 0.9 % Sodium Chloride 50 ML IV (12:16)
--- NOTE | 2021-08-06 12:18 | PC.NURSE ---
ls now coarse/crackles- plan for admission-pt aware of plan of care
[2021-08-06 12:54] LABS: Appearance Urine CLEAR; Color Urine YELLOW; Glucose Urine UA NEG (NEG); Leukocyte Esterase Urine NEG (NEG); Nitrite Urine NEG (NEG); PH 5.5 (5.0-8.0); Specific Gravity - Urine 1.025 (1.005-1.025); UACC Culture Trigger NO; Urine Blood TRACE (NEG); Urine Ketones NEG (NEG); Urine Protein NEG (NEG-TRACE)
--- NOTE | 2021-08-06 13:45 | PHA.MEDREC ---
Pharmacy Consult ? Medication Reconciliation Pharmacy has completed the medication reconciliation. Patient was aware of medications she takes and stated nothing changed except prednisone (since last admission) and she finished abx she was prescribed. Mable FarrarD
[2021-08-06 13:47] LABS: Reflex Lactate? Lactic Acid Added
[2021-08-06 13:50] LABS: Granular Casts Urine 0-2 /LPF; Other Crystals Urine TRACE /LPF; RBC Urine 0-2 /HPF (0); Squamous Epithelial Cell Urine TRACE /LPF; WBC Urine 0-2 /HPF (0-4)
--- NOTE | 2021-08-06 13:56 | PM.IMHP ---
History of Present Illness Date of Service: 08/06/21 <ROBBIE Yuan - Last Filed: 08/06/21 14:09> Attending physician on admission: Alfonso Wade <ROBBIE Yuan - Last Filed: 08/06/21 14:09> Chief Complaint: Shortness of breath <ROBBIE Yuan - Last Filed: 08/06/21 14:09> This is a 70-year-old female who presents emergency department with complaints of shortness of breath. She reports being ?sick? for the past 2 weeks. She has had a dry cough, chest pain with cough and shortness of breath over the past 3 days. Her grandson has been sick as well. She has not received her COVID vaccine. She has been using her inhalers at home with no significant improvement. She had a telehealth appointment yesterday with Dr. Pinon her under cutting machine operator and he prescribed her cough medicine. Today she did not feel better so she came to the emergency department. Chest x-ray showed no acute abnormalities. Her oxygen saturation was 100% on room air and her lab work was unremarkable. In the emergency department she received IV ceftriaxone, IV Solu-Medrol as well as IV magnesium and 1 albuterol updraft treatment. She continued to have wheezing in the for the decision was made to admit her overnight for observation. <ROBBIE Yuan - Last Filed: 08/06/21 14:09> Review of Systems Review of Systems: Yes all other systems are reviewed and are negative <ROBBIE Yuan Last Filed: 08/06/21 14:09> Constitutional: Constitutional: Denies chills and Denies fever(s) <ROBBIE Yuan Last Filed: 08/06/21 14:09> Cardiovascular: Cardiovascular: Reports dyspnea <ROBBIE Yuan Last Filed: 08/06/21 14:09> Respiratory: Respiratory: Reports cough and Reports dyspnea <ROBBIE Yuan Last Filed: 08/06/21 14:09> Gastrointestinal: Gastrointestinal: Denies abdominal pain <ROBBIE Yuan Last Filed: 08/06/21 14:09> REPLACED BY [facility] Medical History: Medical History Asthma Asthma-COPD overlap syndrome Bronchitis Chronic allergic rhinitis COPD (chronic obstructive pulmonary disease) Dyslipidemia Eosinophilia GERD (gastroesophageal reflux disease) HTN (hypertension) Hypothyroidism Paroxysmal atrial fibrillation Pneumonia Steroid dependent <ROBBIE Yuan - Last Filed: 08/06/21 14:09> Functional capacity: independent ambulation <ROBBIE Yuan - Last Filed: 08/06/21 14:09> Family History: Family History Father Medical history unknown Mother Medical history unknown <ROBBIE Yuan - Last Filed: 08/06/21 14:09> Pertinent family history: see above <ROBBIE Yuan - Last Filed: 08/06/21 14:09> Surgical History: Surgical History History of knee surgery History of nasal polypectomy History of shoulder surgery History of tubal ligation <ROBBIE Yuan - Last Filed: 08/06/21 14:09> Social History: Social History Household Members: None Housing: House Do you presently have visiting nurse or other home services: Yes Alcohol intake: never Patient Tobacco Use Status: Former Tobacco user Tobacco use type: Cigarette e-Cigarette/Vaping Use: Never Used Second Hand Smoke Exposure: No Use of substances other than those prescribed or required for medical reasons: No Advance Directives: Yes Advance Directives on File: Yes Advance Directives Date on File: 11/10/20 service: No Current occupational status: disabled <ROBBIE Yuan - Last Filed: 08/06/21 14:09> Meds Allergies/Adverse reactions: Allergies Allergy/AdvReac Type Severity Reaction Status Date / Time sulfamethoxazole Allergy Severe Rash Verified 08/05/21 08:29 [From Bactrim] trimethoprim [From Bactrim] Allergy Severe Rash Verified 08/05/21 08:29 levofloxacin [From LEVAQUIN] Allergy Intermediate RASH SOB, Verified 08/05/21 08:29 DIZZYNESS acetaminophen AdvReac Intermediate vomitting Verified 08/05/21 08:29 [Tylenol-Codeine #3] atorvastatin [Lipitor] AdvReac Intermediate nausea Verified 08/05/21 08:29 codeine [CODEINE] AdvReac Intermediate NAUSEA & Verified 08/05/21 08:29 VOMITING morphine [MORPHINE] AdvReac Intermediate NAUSEA & Verified 08/05/21 08:29 VOMITING pravastatin AdvReac Intermediate myalgia Verified 08/05/21 08:29 <ROBBIE Yuan - Last Filed: 08/06/21 14:09> Active Medications: Current Medications Acetaminophen (Acetaminophen 325 Mg Tablet) 650 mg PO Q6H PRN PRN Reason: Pain, Mild (Pain Scale 1-3) Albuterol/Ipratropium (Albuterol/Iprat 2.5/0.5mg 3 Ml Ampul.Neb) 3 ml INHALE RQ4H WHILE AWAKE THANH Albuterol/Ipratropium (Albuterol/Iprat 2.5/0.5mg 3 Ml Ampul.Neb) 3 ml INHALE RQ6H PRN PRN Reason: Shortness of Breath Apixaban (Apixaban 5 Mg Tablet) 5 mg PO BID [facility] Aripiprazole (Aripiprazole 5 Mg Tablet) 5 mg PO DAILY THANH Benzonatate (Benzonatate 100 Mg Capsule) 100 mg PO TID THANH Docusate Sodium (Docusate Sodium 100 Mg Capsule) 100 mg PO DAILY PRN PRN Reason: Constipation Levothyroxine Sodium (Levothyroxine Sodium 25 Mcg Tablet) 25 mcg PO DAILY [facility] Loratadine (Loratadine 10 Mg Tablet) 10 mg PO DAILY [facility] Methylprednisolone Sodium Succinate (Methylprednisolone Sod Succ 40 Mg/Ml Vial) 40 mg IVPUSH Q12H [facility] Non-Formulary Medication (Dextromethorphan-Guaifenesin [Adult Tussin Cough Congest Dm]) 10 ml PO Q6H PRN PRN Reason: cough Non-Formulary Medication (Fluticasone Propion-Salmeterol [Wixela Inhub]) 1 each INHALE BID [facility] Non-Formulary Medication (Rosuvastatin) 10 mg PO BEDTIME [facility] Ondansetron HCl (Ondansetron Hcl 4 Mg/2 Ml Vial) 4 mg IVPUSH Q8H PRN PRN Reason: Nausea and Vomiting Pharmacy Consult (Consult Rx Perform Med Rec) 1 each MISCELLANE ONCE PRN PRN Reason: Consult order Sodium Chloride (0.9 % Sodium Chloride Flush 3 Ml Syringe) 3 ml IVFLUSH QSMOFT [facility] <ROBBIE Yuan - Last Filed: 08/06/21 14:09> Home medications: Home Medications Medication Instructions Recorded Confirmed Last Taken Type loratadine 10 mg tablet 1 tab PO DAILY 02/07/21 08/06/21 08/05/21 History aripiprazole 5 mg tablet 5 mg PO DAILY 02/17/21 08/06/21 08/05/21 History buspirone 5 mg tablet 5 mg PO BID 02/17/21 08/06/21 08/05/21 History prednisone 5 mg tablet 5 mg PO DAILY 04/04/21 08/06/21 08/05/21 History rosuvastatin 10 mg tablet 10 mg PO BEDTIME 07/15/21 08/06/21 08/05/21 History fluticasone 250 mcg-salmeterol 50 1 ea INHALATION BID 08/05/21 08/06/21 Unknown History mcg/dose blistr powdr for inhalation (Owen Inhub) escitalopram oxalate 10 mg tablet 1 tab PO DAILY 08/06/21 08/06/21 08/05/21 History omeprazole 20 mg capsule,delayed 1 cap PO DAILY 08/06/21 08/06/21 08/05/21 History release <ROBBIE Yuan - Last Filed: 08/06/21 14:09> Physical Exam Vital Signs and Narrative: Vital Signs: Last Vital Signs Temp 98.0 F 08/06/21 09:35 Pulse 68 08/06/21 10:49 Resp 18 08/06/21 09:35 BP 173/70 H 08/06/21 09:35 Pulse Ox 100 08/06/21 10:59 Body Mass Index 26.6 <ROBBIE Yuan - Last Filed: 08/06/21 14:09> Const: Nutritional Appearance: well nourished <ROBBIE Yuan - Last Filed: 08/06/21 14:09> Orientation/consciousness: patient oriented x3 <ROBBIE Yuan Last Filed: 08/06/21 14:09> HENMT: Head: Yes normocephalic and Yes atraumatic <ROBBIE Yuan - Last Filed: 08/06/21 14:09> Eyes: Sclerae: sclerae normal <ROBBIE Yuan - Last Filed: 08/06/21 14:09> Chest: Chest palpation & inspection: normal inspection of the chest <ROBBIE Yuan - Last Filed: 08/06/21 14:09> Resp: Other: Scattered expiratory wheezing <ROBBIE Yuan - Last Filed: 08/06/21 14:09> Effort & Inspection: normal respiratory effort and no respiratory distress <ROBBIE Yuan - Last Filed: 08/06/21 14:09> Cardio: Rate: regular rate <ROBBIE Yuan - Last Filed: 08/06/21 14:09> Rhythm: regular rhythm <ROBBIE Yuan - Last Filed: 08/06/21 14:09> GI: Palpation (GI): Soft to palpation and nontender <ROBBIE Yuan - Last Filed: 08/06/21 14:09> Neuro: General: patient oriented x3 <ROBBIE Yuan - Last Filed: 08/06/21 14:09> Cranial nerves: Yes CN's II-XII intact bilaterally and Yes Bilaterally intact EOM present <ROBBIE Yuan - Last Filed: 08/06/21 14:09> Results Labs CBC and Chem 7: : 08/06/21 11:40 08/06/21 11:40 <ROBBIE Yuan - Last Filed: 08/06/21 14:09> Labs: Laboratory Results - last 24 hr 08/06/21 08/06/21 08/06/21 11:37 11:40 11:40 MCV 87.4 MCH 26.9 L MCHC 30.8 L RDW 14.5 Plt Count 390 MPV 9.3 L Immature Gran % (Auto) 0.2 Neut % (Auto) 39.2 L Lymph % (Auto) 33.8 [place] % (Auto) 8.3 Eos % (Auto) 17.1 H Baso % (Auto) 1.4 Lymph # (Auto) 2.8 [place] # (Auto) 0.7 Eos # (Auto) 1.4 H Baso # (Auto) 0.1 Abs Immat Gran (auto) 0.02 Absolute Neuts (auto) 3.25 Absolute Nucleated RBC 0.000 Nucleated RBC % (auto) 0.0 PT 11.8 INR 1.0 VBG pH VBG pCO2 VBG pO2 VBG HCO3 VBG O2 Saturation VBG Base Excess Anion Gap Estim Creat Clear Calc Estimated GFR Random Glucose Lactic Acid 2.1 H* Calcium Magnesium Total Bilirubin AST ALT Alkaline Phosphatase Troponin I High Sens B-Natriuretic Peptide Total Protein Albumin Urine Color Urine Appearance Urine pH Ur Specific [place] Urine Protein Urine Glucose (UA) Urine Ketones Urine Blood Urine Nitrite Ur Leukocyte Esterase Urine RBC Urine WBC Ur Squamous Epith Cells Other Crystals Urine Bacteria Granular Casts COVID-19 (ROBLES) COVID-19 Clin Com 08/06/21 08/06/21 08/06/21 11:40 11:40 11:41 MCV MCH MCHC RDW Plt Count MPV Immature Gran % (Auto) Neut % (Auto) Lymph % (Auto) [place] % (Auto) Eos % (Auto) Baso % (Auto) Lymph # (Auto) [place] # (Auto) Eos # (Auto) Baso # (Auto) Abs Immat Gran (auto) Absolute Neuts (auto) Absolute Nucleated RBC Nucleated RBC % (auto) PT INR VBG pH VBG pCO2 VBG pO2 VBG HCO3 VBG O2 Saturation VBG Base Excess Anion Gap 15 Estim Creat Clear Calc 44.3 Estimated GFR 50 Random Glucose 103 Lactic Acid Calcium 9.0 Magnesium 2.9 H Total Bilirubin 0.2 AST 17 ALT 12 Alkaline Phosphatase 71 Troponin I High Sens < 3.5 B-Natriuretic Peptide 98 Total Protein 7.0 Albumin 4.3 Urine Color Urine Appearance Urine pH Ur Specific [place] Urine Protein Urine Glucose (UA) Urine Ketones Urine Blood Urine Nitrite Ur Leukocyte Esterase Urine RBC Urine WBC Ur Squamous Epith Cells Other Crystals Urine Bacteria Granular Casts COVID-19 (ROBLES) Negative COVID-19 Clin Com See Note 08/06/21 08/06/21 11:47 12:34 MCV MCH MCHC RDW Plt Count MPV Immature Gran % (Auto) Neut % (Auto) Lymph % (Auto) [place] % (Auto) Eos % (Auto) Baso % (Auto) Lymph # (Auto) [place] # (Auto) Eos # (Auto) Baso # (Auto) Abs Immat Gran (auto) Absolute Neuts (auto) Absolute Nucleated RBC Nucleated RBC % (auto) PT INR VBG pH 7.32 VBG pCO2 47 VBG pO2 58 VBG HCO3 24 VBG O2 Saturation 82.0 VBG Base Excess -1.8 Anion Gap Estim Creat Clear Calc Estimated GFR Random Glucose Lactic Acid Calcium Magnesium Total Bilirubin AST ALT Alkaline Phosphatase Troponin I High Sens B-Natriuretic Peptide Total Protein Albumin Urine Color YELLOW Urine Appearance CLEAR Urine pH 5.5 Ur Specific [place] 1.025 Urine Protein NEG Urine Glucose (UA) NEG Urine Ketones NEG Urine Blood TRACE Urine Nitrite NEG Ur Leukocyte Esterase NEG Urine RBC 0-2 Urine WBC 0-2 Ur Squamous Epith Cells TRACE Other Crystals TRACE Urine Bacteria NONE Granular Casts 0-2 COVID-19 (ROBLES) COVID-19 Clin Com <ROBBIE Yuan - Last Filed: 08/06/21 14:09> Imaging Radiologist's Impressions: Impressions Chest X-Ray 08/06/21 10:28 IMPRESSION: No significant change with stable interstitial prominence. <ROBBIE Yuan - Last Filed: 08/06/21 14:09> Assessment and Plan (1) Asthma exacerbation: Status: Acute <ROBBIE Yuan - Last Filed: 08/06/21 14:09> (2) URI (upper respiratory infection): Status: Acute <ROBBIE Yuan - Last Filed: 08/06/21 14:09> This is a 70-year-old female with history of asthma/COPD, atrial fibrillation on Eliquis who presents to the emergency department with shortness of breath and cough. Acute asthma/COPD exacerbation COVID negative IV Solu-Medrol Scheduled and as needed bronchodilators Supplemental oxygen as needed Cough syrup for symptomatic support PAF Continue Multaq, Cardizem Continue anticoagulation with Eliquis Mood Continue Abilify, BuSpar, Lexapro Hypothyroidism Continue Synthroid GERD continue Prilosec DVT prophylaxis-Eliquis code status-full code Attending-Dr. Wade <ROBBIE Yuan - Last Filed: 08/06/21 14:09> This is a 70-year-old female with history of asthma/COPD, atrial fibrillation on Eliquis who presents to the emergency department with shortness of breath and cough. Acute asthma/COPD exacerbation COVID negative IV Solu-Medrol Scheduled and as needed bronchodilators Supplemental oxygen as needed Cough syrup for symptomatic support PAF Continue Multaq, Cardizem Continue anticoagulation with Eliquis Mood Continue Abilify, BuSpar, Lexapro Hypothyroidism Continue Synthroid GERD continue Prilosec DVT prophylaxis-Eliquis code status-full code Attending-Dr. Wade I saw and examined and participate in logan portion of E/M service, I agree with a/p, findings as documented by midlevel provider above, Rebeca <Alfonso Wade MD - Last Filed: 08/07/21 11:09> Quality Stroke Does the patient have a stroke diagnosis?: No <ROBBIE Yuan - Last Filed: 08/06/21 14:09> VTE Prior VTE?: No <ROBBIE Yuan - Last Filed: 08/06/21 14:09> VTE Risk Level:: Medical - moderate - high <ROBBIE Yuan - Last Filed: 08/06/21 14:09> VTE Device Contraindication: N/A - Device Ordered <ROBBIE Yuan - Last Filed: 08/06/21 14:09> VTE Drug Contraindication: N/A - Med Ordered <ROBBIE Yuan - Last Filed: 08/06/21 14:09>
[2021-08-06] MEDS: guaiFENesin 200 MG/10 ML 10 ML LIQUID PO (14:25)
[2021-08-06 14:29] LABS: ~Lactic Acid-LAB USE ONLY 2.3 mmol/L (0.5-2.0)
[2021-08-06] MEDS: 0.9 % Sodium Chloride Flush 3 ML SYRINGE IVFLUSH (14:55)
[2021-08-06 15:29] VITALS: PULSE 97; O2SAT 98
[2021-08-06] MEDS: Albuterol/Iprat 2.5/0.5MG 3 ML AMPUL.NEB INHALE (15:29)
[2021-08-06 16:10] LABS: Reflex Lactate? 2 Y
--- NOTE | 2021-08-06 16:34 | PC.NURSE ---
pt requesting to be dc home- states if she is not going upstairs now she wants to go home. pt educated and pa notified.
[2021-08-06 16:40] LABS: ~Lactic Acid-LAB USE ONLY 4.7 mmol/L (0.5-2.0)
--- NOTE | 2021-08-06 17:04 | PC.NURSE ---
practice performance manager to bedside to educate pt in italian about leaving [facility] and needing to sign [facility] paperwork
--- NOTE | 2021-08-07 07:04 | P.DS_ITS ---
DS: Providers Provider Date of Service: 08/06/21 <ROBBIE Yuan - Last Filed: 08/07/21 07:25> Date of admission: 08/06/21 13:39 <ROBBIE Yuan - Last Filed: 08/07/21 07:25> Date of discharge: 08/06/21 <ROBBIE Yuan - Last Filed: 08/07/21 07:25> Primary care physician: Angelique Valentine MD <ROBBIE Yuan - Last Filed: 08/07/21 07:25> Attending physician on discharge: Alfonso Wade <ROBBIE Yuan - Last Filed: 08/07/21 07:25> Discharging clinician: Naida Welch <ROBBIE Yuan - Last Filed: 08/07/21 07:25> DS: Diagnosis Discharge Diagnosis (1) Asthma exacerbation: Status: Acute <ROBBIE Yuan - Last Filed: 08/07/21 07:25> (2) URI (upper respiratory infection): Status: Acute <ROBBIE Yuan - Last Filed: 08/07/21 07:25> DS: Summary Hospital Course Hospital Course: The patient was admitted to the hospital for acute asthma/copd exacerbation. Her oxygen saturation was 100% on room air. She was started on systemic steroids, breathing treatments and cough medications. Unfortunately, she was frustrated with waiting for a bed in the emergency room and ultimately decided to leave [facility]. She recently saw her shipping and receiving coordinator and said he prescribed her a course of prednisone. She is encouraged to follow up with her PCP. <ROBBIE Yuan - Last Filed: 08/07/21 07:25> Time Spent with Patient Time attestation: Total time spent providing and/or coordinating discharge services: <ROBBIE Yuan Last Filed: 08/07/21 07:25> Discharge coordination time: Greater than 30 minutes <ROBBIE Yuan Last Filed: 08/07/21 07:25> Quality: Stroke Does the patient have a stroke diagnosis?: No <ROBBIE Yuan Last Filed: 08/07/21 07:25> Physical Exam Vital Signs: Vital Signs: Last Vital Signs Temp 98.0 F 08/06/21 09:35 Pulse 97 08/06/21 15:29 Resp 18 08/06/21 09:35 BP 173/70 H 08/06/21 09:35 Pulse Ox 100 08/06/21 10:59 Body Mass Index 26.6 <ROBBIE Yuan - Last Filed: 08/07/21 07:25> Const: Nutritional Appearance: well nourished <ROBBIE Yuan - Last Filed: 08/07/21 07:25> Orientation/consciousness: patient oriented x3 <ROBBIE Yuan - Last Filed: 08/07/21 07:25> HENMT: Head: Yes normocephalic and Yes atraumatic <ROBBIE Yuan - Last Filed: 08/07/21 07:25> Eyes: Sclerae: sclerae normal <ROBBIE Yuan - Last Filed: 08/07/21 07:25> Chest: Chest palpation & inspection: normal inspection of the chest <ROBBIE Yuan - Last Filed: 08/07/21 07:25> Resp: Other: expiratory wheezing, scattered <ROBBIE Yuan - Last Filed: 08/07/21 07:25> Effort & Inspection: normal respiratory effort and no respiratory distress <ROBBIE Yuan - Last Filed: 08/07/21 07:25> Cardio: Rate: regular rate <ROBBIE Yuan - Last Filed: 08/07/21 07:25> Rhythm: regular rhythm <ROBBIE Yuan - Last Filed: 08/07/21 07:25> GI: Palpation (GI): Soft to palpation and nontender <ROBBIE Yuan - Last Filed: 08/07/21 07:25> Neuro: General: patient oriented x3 <ROBBIE Yuan - Last Filed: 08/07/21 07:25> Cranial nerves: Yes CN's II-XII intact bilaterally and Yes Bilaterally intact EOM present <ROBBIE Yuan - Last Filed: 08/07/21 07:25> DS: Data Data Completed and Pending Labs on day of discharge: Laboratory Results - last 24 hr 08/06/21 08/06/21 08/06/21 11:37 11:40 11:40 WBC 8.3 RBC 4.38 Hgb 11.8 L Hct 38.3 MCV 87.4 MCH 26.9 L MCHC 30.8 L RDW 14.5 Plt Count 390 MPV 9.3 L Immature Gran % (Auto) 0.2 Neut % (Auto) 39.2 L Lymph % (Auto) 33.8 [place] % (Auto) 8.3 Eos % (Auto) 17.1 H Baso % (Auto) 1.4 Lymph # (Auto) 2.8 [place] # (Auto) 0.7 Eos # (Auto) 1.4 H Baso # (Auto) 0.1 Abs Immat Gran (auto) 0.02 Absolute Neuts (auto) 3.25 Absolute Nucleated RBC 0.000 Nucleated RBC % (auto) 0.0 PT 11.8 INR 1.0 VBG pH VBG pCO2 VBG pO2 VBG HCO3 VBG O2 Saturation VBG Base Excess Sodium Potassium Chloride Carbon Dioxide Anion Gap BUN Creatinine Estim Creat Clear Calc Estimated GFR Random Glucose Lactic Acid 2.1 H* Lactic Acid Fup @ 2Hr Lactic Acid Fup @ 4Hr Calcium Magnesium Total Bilirubin AST ALT Alkaline Phosphatase Troponin I High Sens B-Natriuretic Peptide Total Protein Albumin Urine Color Urine Appearance Urine pH Ur Specific [place] Urine Protein Urine Glucose (UA) Urine Ketones Urine Blood Urine Nitrite Ur Leukocyte Esterase Urine RBC Urine WBC Ur Squamous Epith Cells Other Crystals Urine Bacteria Granular Casts COVID-19 (ROBLES) COVID-19 Clin Com 08/06/21 08/06/21 08/06/21 11:40 11:40 11:41 WBC RBC Hgb Hct MCV MCH MCHC RDW Plt Count MPV Immature Gran % (Auto) Neut % (Auto) Lymph % (Auto) [place] % (Auto) Eos % (Auto) Baso % (Auto) Lymph # (Auto) [place] # (Auto) Eos # (Auto) Baso # (Auto) Abs Immat Gran (auto) Absolute Neuts (auto) Absolute Nucleated RBC Nucleated RBC % (auto) PT INR VBG pH VBG pCO2 VBG pO2 VBG HCO3 VBG O2 Saturation VBG Base Excess Sodium 141 Potassium 3.9 Chloride 106 Carbon Dioxide 24 Anion Gap 15 BUN 20 H Creatinine 1.08 Estim Creat Clear Calc 44.3 Estimated GFR 50 Random Glucose 103 Lactic Acid Lactic Acid Fup @ 2Hr Lactic Acid Fup @ 4Hr Calcium 9.0 Magnesium 2.9 H Total Bilirubin 0.2 AST 17 ALT 12 Alkaline Phosphatase 71 Troponin I High Sens < 3.5 B-Natriuretic Peptide 98 Total Protein 7.0 Albumin 4.3 Urine Color Urine Appearance Urine pH Ur Specific [place] Urine Protein Urine Glucose (UA) Urine Ketones Urine Blood Urine Nitrite Ur Leukocyte Esterase Urine RBC Urine WBC Ur Squamous Epith Cells Other Crystals Urine Bacteria Granular Casts COVID-19 (ROBLES) Negative COVID-Scaled [employer] Com See Note 08/06/21 08/06/21 08/06/21 11:47 12:34 14:07 WBC RBC Hgb Hct MCV MCH MCHC RDW Plt Count MPV Immature Gran % (Auto) Neut % (Auto) Lymph % (Auto) [place] % (Auto) Eos % (Auto) Baso % (Auto) Lymph # (Auto) [place] # (Auto) Eos # (Auto) Baso # (Auto) Abs Immat Gran (auto) Absolute Neuts (auto) Absolute Nucleated RBC Nucleated RBC % (auto) PT INR VBG pH 7.32 VBG pCO2 47 VBG pO2 58 VBG HCO3 24 VBG O2 Saturation 82.0 VBG Base Excess -1.8 Sodium Potassium Chloride Carbon Dioxide Anion Gap BUN Creatinine Estim Creat Clear Calc Estimated GFR Random Glucose Lactic Acid Lactic Acid Fup @ 2Hr 2.3 H* Lactic Acid Fup @ 4Hr Calcium Magnesium Total Bilirubin AST ALT Alkaline Phosphatase Troponin I High Sens B-Natriuretic Peptide Total Protein Albumin Urine Color YELLOW Urine Appearance CLEAR Urine pH 5.5 Ur Specific [place] 1.025 Urine Protein NEG Urine Glucose (UA) NEG Urine Ketones NEG Urine Blood TRACE Urine Nitrite NEG Ur Leukocyte Esterase NEG Urine RBC 0-2 Urine WBC 0-2 Ur Squamous Epith Cells TRACE Other Crystals TRACE Urine Bacteria NONE Granular Casts 0-2 COVID-19 (ROBLES) COVID-[employer] 08/06/21 16:18 WBC RBC Hgb Hct MCV MCH MCHC RDW Plt Count MPV Immature Gran % (Auto) Neut % (Auto) Lymph % (Auto) [place] % (Auto) Eos % (Auto) Baso % (Auto) Lymph # (Auto) [place] # (Auto) Eos # (Auto) Baso # (Auto) Abs Immat Gran (auto) Absolute Neuts (auto) Absolute Nucleated RBC Nucleated RBC % (auto) PT INR VBG pH VBG pCO2 VBG pO2 VBG HCO3 VBG O2 Saturation VBG Base Excess Sodium Potassium Chloride Carbon Dioxide Anion Gap BUN Creatinine Estim Creat Clear Calc Estimated GFR Random Glucose Lactic Acid Lactic Acid Fup @ 2Hr Lactic Acid Fup @ 4Hr 4.7 H* Calcium Magnesium Total Bilirubin AST ALT Alkaline Phosphatase Troponin I High Sens B-Natriuretic Peptide Total Protein Albumin Urine Color Urine Appearance Urine pH Ur Specific [place] Urine Protein Urine Glucose (UA) Urine Ketones Urine Blood Urine Nitrite Ur Leukocyte Esterase Urine RBC Urine WBC Ur Squamous Epith Cells Other Crystals Urine Bacteria Granular Casts COVID-19 (ROBLES) COVID-19 Clin Com <ROBBIE Yuan - Last Filed: 08/07/21 07:25> Discharge Plan Discharge Patient Disposition: Left Against Medical Advice <ROBBIE Yuan - Last Filed: 08/07/21 07:25> Referrals: Angelique Li MD [Primary Care Provider] - 1 Week <ROBBIE Yuan - Last Filed: 08/07/21 07:25> Discharge Medications: No Action diltiazem HCl [Cardizem CD] 120 mg capsule,extended release 24hr 120 mg PO DAILY Qty: 30 RF: 5 levothyroxine 25 mcg tablet 25 mcg PO DAILY 90 Days Qty: 90 RF: 1 Eliquis 5 mg tablet 5 mg PO BID Qty: 60 RF: 5 Multaq 400 mg tablet 400 mg PO BID 90 Days Qty: 180 RF: 1 prednisone 5 mg Tablet 5 mg PO DAILY RF: 0 loratadine 10 mg tablet 1 tab PO DAILY RF: 0 escitalopram oxalate 10 mg tablet 1 tab PO DAILY RF: 0 omeprazole 20 mg capsule,delayed release(DR/EC) 1 cap PO DAILY RF: 0 aripiprazole 5 mg tablet 5 mg PO DAILY RF: 0 buspirone 5 mg tablet 5 mg PO BID RF: 0 rosuvastatin 10 mg tablet 10 mg PO BEDTIME RF: 0 ipratropium-albuterol 0.5 mg-3 mg(2.5 mg base)/3 mL solution for nebulization 3 ml inhalation QID Qty: 360 RF: 11 budesonide 0.5 mg/2 mL suspension for nebulization 0.5 mg inhalation BID 30 Days Qty: 120 RF: 11 albuterol sulfate 90 mcg/actuation HFA aerosol inhaler 2 inh inhalation Q6H PRN (Reason: shortness of breath or wheezing) 30 Days Qty: 18 RF: 12 fluticasone propion-salmeterol [Wixela Inhub] 250-50 mcg/dose blister with device 1 ea inhalation BID RF: 0 dextromethorphan-guaifenesin [Adult Tussin Cough Congest DM] 10-100 mg/5 mL liquid 10 ml PO Q6H PRN (Reason: cough) 14 Days Qty: 400 RF: 3 doxycycline hyclate 100 mg capsule 100 mg PO BID 10 Days Qty: 20 RF: 0 <ROBBIE Yuan - Last Filed: 08/07/21 07:25> Discharge Orders: Discharge Order (Routine); Ordered 08/07/21 Ordered By: Naida Welch <ROBBIE Yuan - Last Filed: 08/07/21 07:25> Care Plan Goals: stay healthy and out of the hospital <ROBBIE Yuan - Last Filed: 08/07/21 07:25> Health Concerns: asthma/copd <ROBBIE Yuan - Last Filed: 08/07/21 07:25> Plan of Treatment: follow up with pcp/shipping and receiving coordinator <ROBBIE Yuan - Last Filed: 08/07/21 07:25> Assessment: see discharge summary Patient left AMA, <ROBBIE Yuan - Last Filed: 08/07/21 07:25> Discharge Date/Time: 08/06/21 20:30 <ROBBIE Yuan - Last Filed: 08/07/21 07:25>
== END 2021-08-06 20:30 | disposition left against medical advice (07) ==
LOC: HO.ED 12:17 → HO.EDOVER 13:53
PROVIDERS: Physician Assistant Medical; Admitting Provider Physician Assistant Medical; Emergency Provider Emergency Medicine; PCP Internal Medicine; Visit Provider Physician Assistant Medical
DX: J45.901 Unspecified asthma with (acute) exacerbation (principal); J06.9 Acute upper respiratory infection, unspecified; J44.9 Chronic obstructive pulmonary disease, unspecified; I10 Essential (primary) hypertension; E78.5 Hyperlipidemia, unspecified; E03.9 Hypothyroidism, unspecified; I48.91 Unspecified atrial fibrillation; Z87.891 Personal history of nicotine dependence; Z20.822 Contact with and (suspected) exposure to COVID-19; Z88.6 Allergy status to analgesic agent; Z88.1 Allergy status to other antibiotic agents; Z88.8 Allergy status to other drugs, medicaments and biological substances; Z79.01 Long term (current) use of anticoagulants; Z79.52 Long term (current) use of systemic steroids; Z79.899 Other long term (current) drug therapy; Z53.29 Procedure and treatment not carried out because of patient's decision for other reasons; Z88.2 Allergy status to sulfonamides
CPT/HCPCS: 36415; 71045; 80053; 81001; 81003; 82803; 83605; 83735; 83880; 84484; 85025; 85610; 87040; 87635; 93005; 94640; 94644; 99219; 99284; J0696; J2930; J3475

== ENCOUNTER → 2021-08-21 13:57 | Outpatient (BNVA) | payer MEDICARE, SELFPAY | PROVIDERS: PCP Internal Medicine; Visit Provider Hospitalist | DX: J45.901 Unspecified asthma with (acute) exacerbation (principal); J30.9 Allergic rhinitis, unspecified; J06.9 Acute upper respiratory infection, unspecified; I48.0 Paroxysmal atrial fibrillation; F19.20 Other psychoactive substance dependence, uncomplicated | CPT/HCPCS: 99212 ==

== ENCOUNTER 2021-09-14 10:00 | Outpatient (REF) | payer MEDICARE, SELFPAY | END 2021-09-14 10:01 | disposition home or self-care (01) | LOC: HO.MDS 10:00 | PROVIDERS: PCP Internal Medicine; Visit Provider Hospitalist | DX: J45.50 Severe persistent asthma, uncomplicated (principal) | CPT/HCPCS: 96372; J2182 ==

== ENCOUNTER 2021-10-13 11:57 | Outpatient (REF) | payer MEDICARE, SELFPAY | END 2021-10-13 11:58 | disposition home or self-care (01) | LOC: HO.MDS 11:57 | PROVIDERS: PCP Internal Medicine; Visit Provider Hospitalist | DX: J45.50 Severe persistent asthma, uncomplicated (principal) | CPT/HCPCS: 96372; J2182 ==

== ENCOUNTER → 2021-10-16 09:38 | Outpatient (BNVA) | payer MEDICARE, SELFPAY | PROVIDERS: PCP Internal Medicine; Visit Provider Hospitalist | DX: J45.909 Unspecified asthma, uncomplicated (principal); J30.9 Allergic rhinitis, unspecified; I48.0 Paroxysmal atrial fibrillation; F19.20 Other psychoactive substance dependence, uncomplicated | CPT/HCPCS: Q3014 ==

== ENCOUNTER 2021-10-21 09:15 | Outpatient (REF) | payer MEDICARE, SELFPAY ==
[2021-10-21 09:40] LABS: MANUAL DIFF FLAG NO
[2021-10-21 09:57] LABS: Basophils Percent Auto 0.5 % (0-2); Eosinophils Absolute Auto 0.1 X10*3/uL (0.0-0.4); Eosinophils Percent Auto 1.2 % (0-4); Hematocrit 38.4 % (37.0-47.0); Hemoglobin 11.6 g/dl (12.0-16.0); Imm Gran Abs Auto 0.02 X10*3/uL (0.00-0.03); Imm Gran Pct Auto 0.3 % (0.0-0.4); Lymphocytes Absolute Auto 2.2 X10*3/uL (1.2-4.9); Lymphocytes Percent Auto 34.2 % (20-40); Mean Corpuscular HGB Conc 30.2 g/dl (31.0-35.0); Mean Corpuscular Hemoglobin 26.6 pg (27.0-33.0); Mean Corpuscular Volume 88.1 fL (80.0-98.0); Mean Platelet Volume 9.2 fL (9.4-12.3); Monocytes Absolute Auto 0.6 X10*3/uL (0.1-1.2); Monocytes Percent Auto 8.8 % (2-11); Neutrophils Absolute Auto 3.6 x10*3/uL (2.0-8.3); Platelet Count 354 X10*3/uL (160-400); Red Blood Count 4.36 X10*6/uL (4.20-5.50); Red Cell Distribution Width 14.9 % (11.0-16.0); White Blood Count 6.5 X10*3/uL (4.8-10.8)
[2021-10-21 11:10] LABS: Alanine Aminotransferase 10 U/L (0-31); Alkaline Phosphatase 66 U/L (39-117); Anion Gap 13 (12-20); Aspartate Amino Transferase 13 U/L (5-31); Bilirubin Total 0.3 mg/dL (0.0-1.0); Blood Urea Nitrogen 18 mg/dL (9-16); Calcium 9.4 mg/dL (8.4-10.2); Carbon Dioxide 27 mmol/L (22-29); Chloride 109 mmol/L (96-108); Cholesterol 273 mg/dL; Estimated Glomerular Filt Rate 47; Glucose Fasting 87 mg/dL (60-99); HDL Cholesterol 63 mg/dL; LDL Cholesterol Calculated 173 mg/dl; Potassium 5.1 mmol/L (3.3-5.1); Sodium 144 mmol/L (135-145); Total Protein 6.8 g/dL (6.5-8.0); Triglycerides 189 mg/dL
[2021-10-21 11:11] LABS: Thyroid Stimulating Hormone 3.32 uIU/mL (0.32-4.0)
[2021-10-23 06:37] LABS: Thyroglobulin Antibodies <1 IU/mL (< or = 1); Thyroid Peroxidase Antibodies <1 IU/mL (<9)
== END 2021-10-21 09:16 | disposition home or self-care (01) ==
LOC: HO.LAB 09:15
PROVIDERS: PCP Internal Medicine; Visit Provider Internal Medicine
DX: E03.9 Hypothyroidism, unspecified (principal); E78.5 Hyperlipidemia, unspecified; I10 Essential (primary) hypertension; D64.9 Anemia, unspecified
CPT/HCPCS: 36415; 80053; 80061; 84443; 85025; 86376; 86800

== ENCOUNTER 2021-11-04 12:04 | Outpatient (REF) | payer MEDICARE, SELFPAY ==
--- NOTE | ~2021-11-04 | US_ITS ---
EXAMINATION: US VENOUS ULTRASOUND WITH DOPPLER LOWER EXTREMITY, LEFT CLINICAL INFORMATION: Pain COMPARISON: None TECHNIQUE: Ultrasound of the deep veins is performed from the hip to the calf with compression sonography and color and pulse Doppler assessment. Spectral analysis with color-flow imaging is performed. The contralateral right common femoral vein was also evaluated. FINDINGS: There is normal venous compression and respiratory variation and augmented flow. The visualized common femoral vein, superficial femoral vein, profunda femoral vein, popliteal vein, and the trifurcation region shows no evidence of deep venous thrombosis. There is no significant popliteal fossa cyst. There is linear echogenic material seen against the wall the right common femoral vein suggestive of changes from old DVT. US/US venous duplex LE LT IMPRESSION: No DVT demonstrated in the left lower extremity. Changes of chronic DVT seen in the right common femoral vein.
== END 2021-11-04 12:05 | disposition home or self-care (01) ==
LOC: HO.US 12:04
PROVIDERS: PCP Internal Medicine; Visit Provider Internal Medicine
DX: M79.605 Pain in left leg (principal)
CPT/HCPCS: 93971

== ENCOUNTER 2021-11-10 10:16 | Outpatient (REF) | payer MEDICARE, SELFPAY | END 2021-11-10 10:17 | disposition home or self-care (01) | LOC: HO.MDS 10:16 | PROVIDERS: PCP Internal Medicine; Visit Provider Hospitalist | DX: J45.50 Severe persistent asthma, uncomplicated (principal) | CPT/HCPCS: 96372; J2182 ==

== ENCOUNTER 2021-11-26 13:07 | Outpatient (REF) | payer MEDICARE, SELFPAY ==
--- NOTE | ~2021-11-26 | MM_ITS ---
EXAMINATION: MM DIAGNOSTIC DIGITAL BREAST TOMOSYNTHESIS, BILATERAL US DIAGNOSTIC ULTRASOUND BREAST, LEFT CLINICAL INFORMATION: Intermittent left breast pain. No discharge or palpable abnormality. No known family history breast cancer. TC score 2%. Due for yearly. COMPARISON: Mammography: 07/17/2018, 08/02/2015 TECHNIQUE: Digital breast tomosynthesis is performed in both the craniocaudal and mediolateral oblique views along with computer-aided detection (CAD). Synthesized 2D images are generated from the tomosynthesis. Ultrasound left breast is targeted to the area of clinical concern for o'clock through 8:00 position. Grayscale imaging and color Doppler are performed without and with harmonics. FINDINGS: The breasts are heterogeneously dense, which may obscure small masses (ACR BI-RADS breast composition Category c). There are no significant masses, abnormal calcifications, or other abnormalities. Parenchymal pattern is similar to prior studies. There is no developing density or architectural abnormality. The axilla are unremarkable. There is no skin thickening or coarsening of the Avel's ligaments. No significant changes. Ultrasound left breast demonstrates no cystic or solid mass, architectural abnormality, or focal duct ectasia. No skin thickening or edema tracking in soft tissue planes. Results are discussed with the patient at time of visit, using an certified court interpreter. MM/MM tomosynthesis diagnostic BI IMPRESSION: No mammographic evidence of malignancy or inflammatory changes. Unremarkable targeted left breast ultrasound. ASSESSMENT: BI-RADS 1: Negative RECOMMENDATION: 1. Patient's left breast pain should be managed based on the clinical impression. 2. Otherwise, routine annual screening mammography. This patient's information was entered into a reminder system with a target due date for their next mammogram.
--- NOTE | ~2021-11-26 | MM_ITS ---
EXAMINATION: BONE DENSITOMETRY CLINICAL INDICATION: Asymptomatic menopausal state. COMPARISON: Previous BD dated 06/12/2013 and baseline BD dated 11/24/2007. TECHNIQUE: Using a SkyRank DXA System (software version: 13.1) manufactured by [employer], dual-energy x-ray absorptiometry was performed of the lumbar spine and left hip. The images are of good technical quality. Summary results are attached. FINDINGS: AP SPINE L1-L4: Current: BMD 0.942 g/cm2, Z-score -0.7, T-score -2.0, osteopenia, 6.9% decrease from previous, 8.8% decrease from baseline (<5% change is not significant). Prior: BMD 1.012 g/cm2. Baseline: BMD 1.033 g/cm2. LEFT FEMUR, NECK: Current: BMD 0.852 g/cm2, Z-score 0.2, T-score -1.3, osteopenia. Prior: BMD 0.839 g/cm2. Baseline: BMD 0.920 g/cm2. LEFT FEMUR, TOTAL: Current: BMD 0.842 g/cm2, Z-score -0.1, T-score -1.3, osteopenia, 2.4% decrease from previous, 11.4% decrease from baseline (<5% change is not significant). Prior: BMD 0.863 g/cm2. Baseline: BMD 0.950 g/cm2. IDENTIFIED RISK FACTORS: Early menopause, secondary osteoporosis. HISTORY OF FRACTURE: None listed. MEDICATIONS: None listed. MM/XR DEXA axial skeleton IMPRESSION: 1. DIAGNOSIS: Osteopenia based on the lowest T-score value of -2.0 in the lumbar spine applying World Health Organization criteria. 2. 10-YEAR FRACTURE RISK PREDICTION, FRAX: Major osteoporotic fracture (clinical spine, forearm, hip or shoulder) 5.5%. Hip fracture 0.8%. 3. Treatment Recommendations: NOF guidelines recommend consideration for treatment in postmenopausal women and men age 50 and older presenting with the following: -A hip or vertebral (clinical or morphometric) fracture. -T-score less than or equal to -2.5 at the femoral neck or spine after appropriate evaluation to exclude secondary causes. -Low bone mass at the hip or spine and a 10-year fracture probability by FRAX of greater than or equal to 3% for hip fracture or greater than or equal to 20% for major osteoporotic fracture based on the [place] adapted WHO algorithm. 4. Other Recommendations: All treatment decisions require clinical judgment and consideration of individual patient factors, including patient preferences, comorbidities, previous drug use, risk factors not captured in the FRAX model (e.g. frailty, falls, vitamin D deficiency, increased bone turnover, interval significant decline in bone density) and possible under or overestimation of fracture risk by FRAX. Additional medical evaluation for secondary cause of low bone mineral density may be appropriate. FUTURE SCAN RECOMMENDATION: People with diagnosed cases of osteoporosis or at high risk for fracture should have regular bone mineral density tests. For patients eligible for Medicare, routine testing is allowed once every 2 years. The testing frequency can be increased to one year for patients who have rapidly progressing disease, those who are receiving or discontinuing medical therapy to restore bone mass, or have additional risk factors.
== END 2021-11-26 13:08 | disposition home or self-care (01) ==
LOC: HO.MAMMO 13:07
PROVIDERS: PCP Internal Medicine; Visit Provider Internal Medicine
DX: Z13.820 Encounter for screening for osteoporosis (principal); N64.4 Mastodynia; Z78.0 Asymptomatic menopausal state
CPT/HCPCS: 76642; 77062; 77066; 77080

== ENCOUNTER 2021-12-08 09:54 | Outpatient (REF) | payer MEDICARE, SELFPAY | END 2021-12-08 09:55 | disposition home or self-care (01) | LOC: HO.MDS 09:54 | PROVIDERS: PCP Internal Medicine; Visit Provider Hospitalist | DX: J45.50 Severe persistent asthma, uncomplicated (principal) | CPT/HCPCS: 96372; J2182 ==

== ENCOUNTER 2021-12-14 08:57 | Emergency (ER) | payer MEDICARE, SELFPAY ==
--- NOTE | ~2021-12-14 | XR_ITS ---
EXAMINATION: LEFT LOWER LEG AND ANKLE X-RAY CLINICAL INFORMATION: Swelling. Rule out fracture. COMPARISON: None TECHNIQUE: 2 views of the left lower leg and 3 views of the left ankle FINDINGS: Left lower leg: Bone alignment is normal. No fracture or dislocation is seen. There is a are small osteophytes at the patellofemoral joint. The knee joint is otherwise normal. Soft tissues are normal. Left ankle: No fracture or dislocation is seen. The ankle mortise is normal. Soft tissues are normal. The hindfoot is not visualized on the AP or lateral views. XR/XR ankle LT min 3V IMPRESSION: No fracture or dislocation seen.
--- NOTE | ~2021-12-14 | XR_ITS ---
EXAMINATION: XR LUMBOSACRAL SPINE CLINICAL INFORMATION: Low back pain COMPARISON: None TECHNIQUE: Three views of the lumbosacral spine. FINDINGS: Bone alignment is normal. No fracture or dislocation is seen. Disc spaces are normal. There is lower lumbar spine facet arthritis. There is evidence of atherosclerotic disease. XR/XR lumbar spine 2-3V IMPRESSION: Mild degenerative changes.
--- NOTE | ~2021-12-14 | US_ITS ---
EXAMINATION: US VENOUS ULTRASOUND WITH DOPPLER LOWER EXTREMITY, BILATERAL CLINICAL INFORMATION: Right thigh pain. Left lower leg swelling. COMPARISON: Previous exam November 2021. TECHNIQUE: Ultrasound of the deep veins is performed from the hip to the calf with compression sonography and color and pulse Doppler assessment. Spectral analysis with color-flow imaging is performed. FINDINGS: RIGHT: There is linear echogenic material in the right common femoral vein suggestive of changes from old DVT. This is similar to recent left leg ultrasound. The right greater saphenous vein and profunda femoral vein in the upper thigh are patent. There is no flow and decreased compression of the superficial femoral vein in the mid and upper thigh. The vein is small in caliber in this region. This is suggestive of DVT of uncertain chronicity. The right superficial femoral vein in the distal thigh is small in caliber but demonstrates some flow and decreased compression. There is linear echogenic material in the popliteal veins suggestive of changes from old DVT. The visualized posterior tibial and peroneal veins in the right lower leg are patent. LEFT: There is normal venous compression and respiratory variation and augmented flow. The visualized common femoral vein, superficial femoral vein, profunda femoral vein, popliteal vein, and the trifurcation region shows no evidence of deep venous thrombosis. There is no significant popliteal fossa cyst. There are bilateral varicosities. There is superficial thrombophlebitis at the right ankle. US/US venous duplex LE BI IMPRESSION: No DVT demonstrated in the left lower extremity. There are chronic changes from old DVT in the right common femoral and popliteal veins. There is a DVT in the right superficial femoral vein of uncertain age. Short-term follow-up exam in several days to evaluate for interval change is recommended. Bilateral varicosities and superficial thrombophlebitis at the right ankle.
--- NOTE | ~2021-12-14 | XR_ITS ---
EXAMINATION: LEFT LOWER LEG AND ANKLE X-RAY CLINICAL INFORMATION: Swelling. Rule out fracture. COMPARISON: None TECHNIQUE: 2 views of the left lower leg and 3 views of the left ankle FINDINGS: Left lower leg: Bone alignment is normal. No fracture or dislocation is seen. There is a are small osteophytes at the patellofemoral joint. The knee joint is otherwise normal. Soft tissues are normal. Left ankle: No fracture or dislocation is seen. The ankle mortise is normal. Soft tissues are normal. The hindfoot is not visualized on the AP or lateral views. XR/XR tibia fibula LT 2V IMPRESSION: No fracture or dislocation seen.
--- NOTE | ~2021-12-14 | XR_ITS ---
EXAMINATION: XR HIP, RIGHT CLINICAL INFORMATION: Pain COMPARISON: None TECHNIQUE: Two views of the right hip and one view of the pelvis. FINDINGS: Bone alignment is normal. No fracture or dislocation is seen. The joint spaces are normal. Bones of the pelvis are normal. Soft tissues are normal. XR/XR hip RT w PEL1V IMPRESSION: Normal right hip.
[2021-12-14 09:10] VITALS: BP 159/84; PULSE 79; RESP 20; TEMP 36.7; O2SAT 98; BMI 30.4
--- NOTE | 2021-12-14 10:21 | ED_ITS ---
HPI - General Adult General Chief complaint: General Medical Stated complaint: r side pain Time Seen by Provider: 12/14/21 10:07 Source: patient Mode of arrival: ambulatory Limitations: no limitations History of Present Illness HPI narrative: Asymmetry or female with history of high cholesterol, high blood pressure, atrial fibrillation and on Eliquis presents to ED for right hip / groin / thigh pain and right-sided back pain the past week that is worse on movement. Patient denies any trauma, redness, or swelling of right lower extremity. Patient states no calf pain, chest pain, or shortness of breath. Patient denies any abdominal pain, dysuria, hematuria, flank pain, fever, or chills. Related Data Home Medications Medication Instructions Recorded Confirmed aripiprazole 5 mg tablet 5 mg PO DAILY 02/17/21 11/04/21 buspirone 5 mg tablet 5 mg PO BID 02/17/21 11/04/21 rosuvastatin 10 mg tablet 10 mg PO BEDTIME 07/15/21 11/04/21 fluticasone 250 mcg-salmeterol 50 1 ea INHALATION BID 08/05/21 11/04/21 mcg/dose blistr powdr for inhalation (Wixela Inhub) escitalopram oxalate 10 mg tablet 1 tab PO DAILY 08/06/21 11/04/21 umeclidinium 62.5 mcg/actuation 1 inh INHALATION DAILY 10/16/21 11/04/21 blister powder for inhalation (Incruse Ellipta) Previous Rx's Medication Instructions Recorded levothyroxine 25 mcg tablet 25 mcg PO DAILY 90 Days #90 tab 07/02/21 albuterol sulfate 90 mcg/actuation 2 inh INHALATION Q6H PRN 30 Days 07/15/21 aerosol inhaler #18 g budesonide 0.5 mg/2 mL suspension 0.5 mg (2 mL) INHALATION BID 30 07/15/21 for nebulization Days #120 ml ipratropium 0.5 mg-albuterol 3 mg 3 ml INHALATION QID #360 ml 07/15/21 (2.5 mg base)/3 mL nebulization soln apixaban 5 mg tablet (Eliquis) 5 mg PO BID #60 tab 07/27/21 dronedarone 400 mg tablet (Multaq) 400 mg PO BID 90 Days #180 tab 07/28/21 dextromethorphan-guaifenesin 10 10 ml PO Q6H PRN 14 Days #400 ml 08/05/21 mg-100 mg/5 mL oral liquid (Adult Tussin Cough Congestion DM) mepolizumab 100 mg/mL subcutaneous 100 mg SUBCUT Q4W 30 Days #2 ml 08/31/21 syringe (Nucala) diltiazem HCl 120 mg 120 mg PO DAILY #30 cap 09/16/21 capsule,extended release 24 hr (Cardizem CD) loratadine 10 mg tablet 10 mg PO DAILY 90 Days #90 tab 09/22/21 prednisone 5 mg tablet 5 mg PO DAILY #30 tab 10/29/21 omeprazole 20 mg capsule,delayed 20 mg PO DAILY 90 Days #90 cap 11/04/21 release simvastatin 10 mg tablet 10 mg PO BEDTIME 90 Days #90 tab 11/04/21 Allergies Allergy/AdvReac Type Severity Reaction Status Date / Time sulfamethoxazole Allergy Severe Rash Verified 11/04/21 11:14 [From Bactrim] trimethoprim [From Bactrim] Allergy Severe Rash Verified 11/04/21 11:14 levofloxacin [From LEVAQUIN] Allergy Intermediate RASH SOB, Verified 11/04/21 11:14 DIZZYNESS acetaminophen AdvReac Intermediate vomitting Verified 11/04/21 11:14 [Tylenol-Codeine #3] atorvastatin [Lipitor] AdvReac Intermediate nausea Verified 11/04/21 11:14 codeine [CODEINE] AdvReac Intermediate NAUSEA & Verified 11/04/21 11:14 VOMITING morphine [MORPHINE] AdvReac Intermediate NAUSEA & Verified 11/04/21 11:14 VOMITING pravastatin AdvReac Intermediate myalgia Verified 11/04/21 11:14 rosuvastatin AdvReac Mild myalgia Verified 11/04/21 11:20 Review of Systems Review of Systems: Right-sided hip/groin pain/thigh and back pain. Yes all other systems are reviewed and are negative PMFSH Past Medical History Medical History (Updated 12/14/21 @ 14:55 by ROBBIE Mcdonnell) Acute bronchitis with bronchospasm Asthma Asthma-COPD overlap syndrome Breast pain, left Bronchitis Chronic allergic rhinitis COPD (chronic obstructive pulmonary disease) Dyslipidemia Eosinophilia GERD (gastroesophageal reflux disease) HTN (hypertension) Hypothyroidism Left leg pain Paroxysmal atrial fibrillation Pneumonia Postmenopausal Steroid dependent Surgical History History of knee surgery History of nasal polypectomy History of shoulder surgery History of tubal ligation Family History Family History Father Medical history unknown Mother Medical history unknown Social History Social History Household Members: None Housing: House Do you presently have visiting nurse or other home services: Yes Alcohol intake: never Patient Tobacco Use Status: Former Tobacco user Tobacco use type: Cigarette e-Cigarette/Vaping Use: Never Used Second Hand Smoke Exposure: No Advance Directives: Yes Advance Directives on File: Yes Advance Directives Date on File: 11/10/20 service: No Current occupational status: disabled Physical Exam ED Vital Signs: Vital Signs - 24 hr 12/14/21 09:10 12/14/21 12:31 12/14/21 14:45 Temperature 98.1 F 97.6 F 97.6 F Pulse Rate 79 57 61 Respiratory Rate 20 18 18 Blood Pressure 159/84 H 153/61 H 158/57 H Pulse Oximetry 98 98 98 BMI result Body Mass Index 30.4 Const General: cooperative, healthy appearing, comfortable, no acute distress, well developed, alert, awake and Physically active Orientation/consciousness: oriented to person, oriented to place and patient oriented x3 HENMT Head: Yes normal to inspection, Yes No palpable skull fracture present, Yes normocephalic, Yes atraumatic and No abrasion Eyes General: appearance normal, both eyes and all related structures Neck Neck: Yes normal visual inspection, Yes full ROM, Yes no lymphadenopathy, Yes no meningeal signs, Yes trachea midline, Yes supple, No anterior neck swelling and No tender Chest Chest palpation & inspection: normal inspection of the chest and normal palpa tion of entire chest wall Resp Effort & Inspection: normal respiratory effort and able to speak in complete sentences Auscultation: clear to auscultation bilaterally Cardio Jugular venous distension: no JVD Heart sounds: S1 normal heart sound present and S2 normal heart sound present GI Inspection: Yes normal to inspection and No abdominal wall ecchymosis Palpation (GI): Soft to palpation, not firm, nontender, no guarding and not rigid General: No CVA tenderness and Yes no CVA tenderness Back/Spine/Pelvis Back: no CVA tenderness, No CVA tenderness and back tenderness (lumbar spine) Skin General skin exam: no rashes or lesions noted, elasticity normal and turgor normal Neuro General: oriented to person, oriented to place, patient oriented x3, gait normal, tone normal, moves all extremities and no meningeal signs Cranial nerves: Yes CN's II-XII intact bilaterally Cognition (Neuro): normal cognition Gait exam (Neuro): Normal gait present Motor exam (neuro): 5/5 motor strength present throughout Extrem General: Yes normal to inspection, Yes full ROM and Yes capillary refill normal Upper/lower leg/hip images: 1. Positive for tenderness on palpation and pain on movement. negative for any erythema, palpable chorod, swelling, ecchymosis, or defomrity. Positive for femoral and pedal pulses. Motor/ nerve/vascular exam intact 2. slight swelling with slight pitting edema which has been occurring for 1 month as per patient. patient states it improved after elevation and stocking compressions. Negative for any upper leg swelling, calf pain. Lower extremity negative for any erythema, ecchymosis, deformity, hotness, coolness. Motor/ neuro/vascular exam intact Psych Appearance: grossly normal, well kempt and not disheveled Course Course Course Narrative: I reviewed patient images in the past with recent bone scan which shows she has osteopenia due to this was sent for imaging of right hip, lumbar spine, and left leg/ankle to make sure no fracture. Due to left lower leg ankle slight swelling will do ultrasound to make sure there is no DVT although unlikely due to patient being on Eliquis. UA also ordered. Reevaluation(s) Reevaluation #1: Patient's hip x-ray came back normal. Patient's ankle and leg x-ray of left lower extremity came back normal. Ultrasound of right lower extremity shows chronic DVT in acute superior thrombophlebitis. Patient already on Eliquis. Due to allergy of narcotics and not able to take NSAIDs due to Eliquis patient informed to take Tylenol follow-up with primary care provider. spine x-ray shows lumbar radiculopathy. Patient given copy of labs and images for follow- up with primary care provider. Time: 14:47 Medical Decision Making MDM Narrative Medical decision making narrative: superficial thrombophlebitis. Chronic DVT. Lumbar radiculopathy Lab Data Labs: Lab Results 12/14/21 Range/Units 11:00 Urine Color YELLOW Urine Appearance CLEAR Urine pH 5.5 (5.0-8.0) Ur Specific Bolt >= 1.030 H (1.005-1.025) Urine Protein NEG (NEG-TRACE) MG/DL Urine Glucose (UA) NEG (NEG) MG/DL Urine Ketones 5 (NEG) MG/DL Urine Blood TRACE (NEG) Urine Nitrite NEG (NEG) Ur Leukocyte Esterase NEG (NEG) Urine RBC 0-2 (0) /HPF Urine WBC 0 (0-4) /HPF Ur Squamous Epith Cells 1+ /LPF Urine Bacteria NONE /LPF Discharge Plan Discharge Clinical Impression: Superficial thrombophlebitis, Chronic lumbar radiculopathy, Chronic deep vein thrombosis (DVT), Varicose veins of both lower extremities Patient Disposition: Home, Self-Care Additional Instructions: Leiva orina result? negativa para infecci?n. Leiva radiograf?a de cadera, tobillo y tibia result? normal y negativa para cualquier fractura. La radiograf?a de la columna lumbar muestra artritis. La ecograf?a muestra TVP cr?gino de la extremidad inferior derecha y tromboflebitis superficial aguda. Debido a que est? tomando Eliquis, no puede arnel maine?n JEFFREY. Solo tome Tylenol para aliviar el dolor. regrese al servicio de urgencias por cualquier hinchaz?n de las extremidades inferiores, empeoramiento del dolor, enrojecimiento, dolor en la pantorrilla, fiebre, decoloraci?n wild azulada, frialdad, calor, dolor en el pecho, dificultad para respirar o cualquier otro s?ntoma preocupante. Por favor, tonja un seguimiento con el proveedor de atenci?n primaria. Prescriptions: No Action levothyroxine 25 mcg tablet 25 mcg PO DAILY 90 Days Qty: 90 1RF Eliquis 5 mg tablet 5 mg PO BID Qty: 60 5RF Multaq 400 mg tablet 400 mg PO BID 90 Days Qty: 180 1RF Nucala 100 mg/mL syringe 100 mg subcut Q4W 30 Days Qty: 2 11RF diltiazem HCl [Cardizem CD] 120 mg capsule,extended release 24hr 120 mg PO DAILY Qty: 30 5RF loratadine 10 mg tablet 10 mg PO DAILY 90 Days Qty: 90 3RF prednisone 5 mg tablet 5 mg PO DAILY Qty: 30 2RF escitalopram oxalate 10 mg tablet 1 tab PO DAILY 0RF simvastatin 10 mg tablet 10 mg PO BEDTIME 90 Days Qty: 90 1RF omeprazole 20 mg capsule,delayed release(DR/EC) 20 mg PO DAILY 90 Days Qty: 90 3RF aripiprazole 5 mg tablet 5 mg PO DAILY 0RF buspirone 5 mg tablet 5 mg PO BID 0RF rosuvastatin 10 mg tablet 10 mg PO BEDTIME 0RF ipratropium-albuterol 0.5 mg-3 mg(2.5 mg base)/3 mL solution for nebulization 3 ml inhalation QID Qty: 360 11RF budesonide 0.5 mg/2 mL suspension for nebulization 0.5 mg inhalation BID 30 Days Qty: 120 11RF albuterol sulfate 90 mcg/actuation HFA aerosol inhaler 2 inh inhalation Q6H PRN (Reason: shortness of breath or wheezing) 30 Days Qty: 18 12RF fluticasone propion-salmeterol [Wixela Inhub] 250-50 mcg/dose blister with device 1 ea inhalation BID 0RF dextromethorphan-guaifenesin [Adult Tussin Cough Congest DM] 10-100 mg/5 mL liquid 10 ml PO Q6H PRN (Reason: cough) 14 Days Qty: 400 3RF Incruse Ellipta 62.5 mcg/actuation blister with device 1 inh inhalation DAILY 0RF Interventions: ED Discharge Assessment Last Done: 12/14/21 15:02 Discharge Date/Time: 12/14/21 15:04 Print Language: Australian
[2021-12-14 11:11] LABS: Appearance Urine CLEAR; Color Urine YELLOW; Glucose Urine UA NEG (NEG); Leukocyte Esterase Urine NEG (NEG); Nitrite Urine NEG (NEG); PH 5.5 (5.0-8.0); Specific Gravity - Urine >= 1.030 (1.005-1.025); UACC Culture Trigger NO; Urine Blood TRACE (NEG); Urine Ketones 5 MG/DL (NEG); Urine Protein NEG (NEG-TRACE)
[2021-12-14] MEDS: Ketorolac Tromethamine 30 MG/ML VIAL IM (11:22)
[2021-12-14 11:37] LABS: RBC Urine 0-2 /HPF (0); Squamous Epithelial Cell Urine 1+ /LPF; WBC Urine 0 /HPF (0-4)
[2021-12-14 12:31] VITALS: BP 153/61; PULSE 57; RESP 18; TEMP 36.4; O2SAT 98
[2021-12-14 14:45] VITALS: BP 158/57; PULSE 61; RESP 18; TEMP 36.4; O2SAT 98
== END 2021-12-14 15:04 | disposition home or self-care (01) ==
PROVIDERS: Physician Assistant; Emergency Provider Emergency Medicine; PCP Internal Medicine
DX: I80.01 Phlebitis and thrombophlebitis of superficial vessels of right lower extremity (principal); I82.511 Chronic embolism and thrombosis of right femoral vein; M79.651 Pain in right thigh; I83.93 Asymptomatic varicose veins of bilateral lower extremities; R60.0 Localized edema; M54.16 Radiculopathy, lumbar region; M25.762 Osteophyte, left knee; I10 Essential (primary) hypertension; E78.5 Hyperlipidemia, unspecified; I48.0 Paroxysmal atrial fibrillation; Z79.899 Other long term (current) drug therapy; Z79.02 Long term (current) use of antithrombotics/antiplatelets; Z79.01 Long term (current) use of anticoagulants
CPT/HCPCS: 72100; 73502; 73590; 73610; 81001; 93970; 96372; 99284; J1885

== ENCOUNTER 2022-01-08 09:17 | Outpatient (REF) | payer OTHER, SELFPAY | END 2022-01-08 09:18 | disposition home or self-care (01) | LOC: HO.MDS 09:17 | PROVIDERS: PCP Internal Medicine; Visit Provider Hospitalist | DX: J45.50 Severe persistent asthma, uncomplicated (principal) | CPT/HCPCS: 96372; 99212; J2182 ==

== ENCOUNTER 2022-01-12 17:27 | Emergency (ER) | payer OTHER, SELFPAY ==
[2022-01-12 18:46] VITALS: BP 178/72; PULSE 89; RESP 17; TEMP 36.2; O2SAT 98; BMI 37.9
--- NOTE | 2022-01-13 00:45 | ED_ITS ---
HPI - Extremity Problem General Chief complaint: Extremity Problem Stated complaint: thigh pain/swollen foot Time Seen by Provider: 01/13/22 00:45 Source: patient Mode of arrival: ambulatory Limitations: language barrier History of Present Illness HPI Narrative: Patient complaining of swelling of right lower extremity for over a month was seen here on 12/05/13 venous Doppler showed chronic DVT patient on Eliquis comes here for swelling not going away no shortness of breath no fever no chills no redness of the skin Related Data Home Medications Medication Instructions Recorded Confirmed aripiprazole 5 mg tablet 5 mg PO DAILY 02/17/21 12/21/21 buspirone 5 mg tablet 5 mg PO BID 02/17/21 12/21/21 fluticasone 250 mcg-salmeterol 50 1 ea INHALATION BID 08/05/21 12/21/21 mcg/dose blistr powdr for inhalation (Wixela Inhub) escitalopram oxalate 10 mg tablet 1 tab PO DAILY 08/06/21 12/21/21 umeclidinium 62.5 mcg/actuation 1 inh INHALATION DAILY 10/16/21 12/21/21 blister powder for inhalation (Incruse Ellipta) Previous Rx's Medication Instructions Recorded albuterol sulfate 90 mcg/actuation 2 inh INHALATION Q6H PRN 30 Days 07/15/21 aerosol inhaler #18 g budesonide 0.5 mg/2 mL suspension 0.5 mg (2 mL) INHALATION BID 30 07/15/21 for nebulization Days #120 ml ipratropium 0.5 mg-albuterol 3 mg 3 ml INHALATION QID #360 ml 07/15/21 (2.5 mg base)/3 mL nebulization soln apixaban 5 mg tablet (Eliquis) 5 mg PO BID #60 tab 07/27/21 dronedarone 400 mg tablet (Multaq) 400 mg PO BID 90 Days #180 tab 07/28/21 dextromethorphan-guaifenesin 10 10 ml PO Q6H PRN 14 Days #400 ml 08/05/21 mg-100 mg/5 mL oral liquid (Adult Tussin Cough Congestion DM) mepolizumab 100 mg/mL subcutaneous 100 mg SUBCUT Q4W 30 Days #2 ml 08/31/21 syringe (Nucala) loratadine 10 mg tablet 10 mg PO DAILY 90 Days #90 tab 12/21/21 prednisone 5 mg tablet 5 mg PO DAILY #30 tab 10/29/21 simvastatin 10 mg tablet 10 mg PO BEDTIME 90 Days #90 tab 11/04/21 mupirocin 2 % topical ointment 1 appl TOPICAL TID 7 Days #15 g 12/21/21 levothyroxine 25 mcg tablet 25 mcg PO DAILY 90 Days #90 tab 12/25/21 rosuvastatin 10 mg tablet 10 mg PO DAILY 90 Days #90 tab 12/25/21 prednisone 2.5 mg tablet 2.5 mg PO DAILY 30 Days #30 tab 01/08/22 diltiazem HCl 120 mg 120 mg PO DAILY #30 cap 01/11/22 capsule,extended release 24 hr (Cardizem CD) tramadol 50 mg tablet 50 mg PO Q6H PRN #20 tab 01/13/22 Allergies Allergy/AdvReac Type Severity Reaction Status Date / Time sulfamethoxazole Allergy Severe Rash Verified 01/12/22 18:53 [From Bactrim] trimethoprim [From Bactrim] Allergy Severe Rash Verified 01/12/22 18:53 levofloxacin [From LEVAQUIN] Allergy Intermediate RASH SOB, Verified 01/12/22 18:53 DIZZYNESS acetaminophen AdvReac Intermediate vomitting Verified 01/12/22 18:53 [Tylenol-Codeine #3] atorvastatin [Lipitor] AdvReac Intermediate nausea Verified 01/12/22 18:53 codeine [CODEINE] AdvReac Intermediate NAUSEA & Verified 01/12/22 18:53 VOMITING morphine [MORPHINE] AdvReac Intermediate NAUSEA & Verified 01/12/22 18:53 VOMITING pravastatin AdvReac Intermediate myalgia Verified 01/12/22 18:53 rosuvastatin AdvReac Mild myalgia Verified 01/12/22 18:53 Review of Systems Review of Systems: Yes all other systems are reviewed and are negative PMFSH Past Medical History Medical History Asthma Asthma-COPD overlap syndrome Breast pain, left Chronic allergic rhinitis Dyslipidemia Eosinophilia GERD (gastroesophageal reflux disease) HTN (hypertension) Hypothyroidism Osteopenia (~2007) Paroxysmal atrial fibrillation (~01/2021) Pneumonia Postmenopausal Steroid dependent Tubular adenoma of colon (~2009) Surgical History History of colonoscopy History of D&C (~2002) History of knee surgery History of nasal polypectomy (~2007) History of right breast biopsy (~1998) History of shoulder surgery (~2006) History of tubal ligation Family History Family History Father Medical history unknown Mother Medical history unknown Social History Social History Household Members: None Housing: House Do you presently have visiting nurse or other home services: Yes Alcohol intake: never Patient Tobacco Use Status: Former Tobacco user Tobacco use type: Cigarette e-Cigarette/Vaping Use: Never Used Second Hand Smoke Exposure: No Advance Directives: Yes Advance Directives on File: Yes Advance Directives Date on File: 11/10/20 service: No Current occupational status: disabled Cognitive needs: Yes (cane) Hearing needs: No Vision needs: Yes (glasses) Physical Exam Vital Signs: Vital Signs: Last Vital Signs Temp 97.1 F 01/12/22 18:46 Pulse 89 01/12/22 18:46 Resp 17 01/12/22 18:46 BP 178/72 H 01/12/22 18:46 Pulse Ox 98 01/12/22 18:46 BMI result Body Mass Index 37.9 Appearance: Alert. Oriented X3. No acute distress. Eyes: PERRLA, No Nystagmus ENT: Pharynx normal. Oral Mucosa moist Neck: Normal inspection. Neck supple. CVS: Normal heart rate and rhythm. Pulses normal. Respiratory: No respiratory distress. Equal air entry bilateral, no wheezing/rales/rhonchi Abdomen: Soft and nontender. Bowel sounds are present, no mass palpable, no CVA tenderness Skin: Skin warm and dry. Normal skin color. Normal skin turgor. Extremities: Trace bilateral lower extremity edema. No calf tenderness right thigh a slight is bigger than the left thigh with tenderness in the femoral area Neuro: Oriented X 3. No motor deficit. No sensory deficit.No cerebellar signs , cranial nerves II-XII intact MDM - Extremity (Nontraumatic) MDM Narrative Medical decision making narrative: Patient with chronic right femoral DVT on Eliquis with chronic pain recent venous Doppler negative for any acute DVT. Patient advised to follow-up PCP continue Eliquis will give tramadol for pain Discharge Plan Discharge Clinical Impression: Chronic deep vein thrombosis (DVT) Patient Disposition: Home, Self-Care Instructions: Deep Vein Thrombosis (ED) Additional Instructions: You have blood clots in your right leg which are chronic , and that causing the discomfort in your right thigh and swelling of the leg continue Eliquis as prescribed Tramadol for pain Keep legs elevated Follow with PCP Tiene co?gulos de paloma en la pierna derecha que son cr?nicos y que causan molestias en el muslo derecho e hinchaz?n de la pierna. continuar con Eliquis seg?n lo prescrito tramadol para el dolor Mant?n las piernas elevadas Seguir con PCP Prescriptions: New tramadol 50 mg tablet 50 mg PO Q6H PRN (Reason: pain) Qty: 20 0RF No Action Eliquis 5 mg tablet 5 mg PO BID Qty: 60 5RF Multaq 400 mg tablet 400 mg PO BID 90 Days Qty: 180 1RF Nucala 100 mg/mL syringe 100 mg subcut Q4W 30 Days Qty: 2 11RF loratadine 10 mg tablet 10 mg PO DAILY 90 Days Qty: 90 3RF prednisone 5 mg tablet 5 mg PO DAILY Qty: 30 2RF levothyroxine 25 mcg tablet 25 mcg PO DAILY 90 Days Qty: 90 1RF rosuvastatin 10 mg tablet 10 mg PO DAILY 90 Days Qty: 90 3RF diltiazem HCl [Cardizem CD] 120 mg capsule,extended release 24hr 120 mg PO DAILY Qty: 30 5RF escitalopram oxalate 10 mg tablet 1 tab PO DAILY 0RF mupirocin 2 % ointment 1 appl topical TID 7 Days Qty: 15 0RF simvastatin 10 mg tablet 10 mg PO BEDTIME 90 Days Qty: 90 1RF aripiprazole 5 mg tablet 5 mg PO DAILY 0RF buspirone 5 mg tablet 5 mg PO BID 0RF ipratropium-albuterol 0.5 mg-3 mg(2.5 mg base)/3 mL solution for nebulization 3 ml inhalation QID Qty: 360 11RF budesonide 0.5 mg/2 mL suspension for nebulization 0.5 mg inhalation BID 30 Days Qty: 120 11RF albuterol sulfate 90 mcg/actuation HFA aerosol inhaler 2 inh inhalation Q6H PRN (Reason: shortness of breath or wheezing) 30 Days Qty: 18 12RF fluticasone propion-salmeterol [Wixela Inhub] 250-50 mcg/dose blister with device 1 ea inhalation BID 0RF dextromethorphan-guaifenesin [Adult Tussin Cough Congest DM] 10-100 mg/5 mL liquid 10 ml PO Q6H PRN (Reason: cough) 14 Days Qty: 400 3RF Incruse Ellipta 62.5 mcg/actuation blister with device 1 inh inhalation DAILY 0RF prednisone 2.5 mg tablet 2.5 mg PO DAILY 30 Days Qty: 30 7RF Print Language: Senegalese
--- NOTE | 2022-01-13 01:03 | PC.NURSE ---
MD at bedside with transactional paralegal for primary eval.
[2022-01-13] MEDS: traMADoL HCL 50 MG TABLET PO (01:22)
--- NOTE | 2022-01-13 01:24 | PC.NURSE ---
Pt medicated per MAR.
== END 2022-01-13 01:28 | disposition home or self-care (01) ==
PROVIDERS: Emergency Provider Internal Medicine; PCP Internal Medicine
DX: I82.411 Acute embolism and thrombosis of right femoral vein (principal); R60.0 Localized edema; Z79.01 Long term (current) use of anticoagulants; Z79.899 Other long term (current) drug therapy; Z87.891 Personal history of nicotine dependence
CPT/HCPCS: 99283

== ENCOUNTER → 2022-01-15 10:35 | Outpatient (BNVA) | payer OTHER, SELFPAY | PROVIDERS: PCP Internal Medicine; Referring Provider Internal Medicine; Visit Provider Internal Medicine Cardiovascular Disease | DX: I48.0 Paroxysmal atrial fibrillation (principal); I10 Essential (primary) hypertension; R60.0 Localized edema | CPT/HCPCS: 93005; 99212 ==

== ENCOUNTER 2022-02-01 22:56 | Emergency (ER) | payer OTHER, SELFPAY ==
--- NOTE | ~2022-02-01 | CT_ITS ---
EXAMINATION: CT ABDOMEN AND PELVIS WITHOUT CONTRAST CLINICAL INFORMATION: Right lower quadrant pain COMPARISON: 04/04/2019 TECHNIQUE: Multidetector volumetric imaging was performed from the superior aspect of the liver through the pubic symphysis. Sagittal and coronal reformatted images were obtained on the technologist's workstation. This CT examination was performed using dose optimization techniques as appropriate, variously including the following: *Automated exposure control *Adjustment of mA and/or kV according to patient size (this includes techniques or standardized protocols for targeted exams where dose is matched to indication/reason for exam; i.e. extremities or head) *Use of iterative reconstruction technique DLP: 772 mGy-cm FINDINGS: LUNG BASES: The visualized lung bases are unremarkable. LIVER, GALLBLADDER, AND BILIARY TREE: The liver is normal in size, shape, and attenuation. No focal hepatic lesion or biliary ductal dilatation is identified. The gallbladder is unremarkable with no evidence of radiopaque gallstones, gallbladder wall thickening, or obvious pericholecystic inflammatory changes. PANCREAS: Unremarkable. SPLEEN: Unremarkable. ADRENAL GLANDS: Unremarkable. KIDNEYS AND URETERS: The kidneys are normal in size, shape, and attenuation. Redemonstrated posterior right renal cyst. No hydronephrosis, hydroureter, or calculi seen. No perinephric stranding. BLADDER: Mildly distended and grossly unremarkable. GASTROINTESTINAL TRACT: No evidence of bowel obstruction or significant wall thickening. The appendix is unremarkable. No free fluid or free air is seen. ABDOMINAL WALL: No significant hernia is appreciated. LYMPH NODES: Normal. VASCULAR: Scattered atherosclerotic calcifications are present. 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 PELVIC VISCERA: Redemonstrated fibroids with calcifications. OSSEOUS STRUCTURES: There is facet arthropathy of the lower lumbar spine. CT/CT abdomen pelvis wo con IMPRESSION: No acute findings identified in the abdomen/pelvis. Normal appendix. Fleischner guidelines were followed.
[2022-02-01 23:10] VITALS: BP 140/64; PULSE 103; RESP 16; TEMP 36.9; O2SAT 99; BMI 25.0
[2022-02-01 23:11] VITALS: BP 154/67; PULSE 85; RESP 12; TEMP 37.1; O2SAT 97
[2022-02-01 23:38] LABS: MANUAL DIFF FLAG NO
[2022-02-01 23:42] LABS: Basophils Percent Auto 0.3 % (0-2); Eosinophils Percent Auto 0.1 % (0-4); Hematocrit 37.1 % (37.0-47.0); Hemoglobin 11.3 g/dl (12.0-16.0); Imm Gran Abs Auto 0.03 X10*3/uL (0.00-0.03); Imm Gran Pct Auto 0.3 % (0.0-0.4); Lymphocytes Absolute Auto 1.1 X10*3/uL (1.2-4.9); Mean Corpuscular HGB Conc 30.5 g/dl (31.0-35.0); Mean Corpuscular Hemoglobin 25.9 pg (27.0-33.0); Mean Corpuscular Volume 85.1 fL (80.0-98.0); Mean Platelet Volume 9.2 fL (9.4-12.3); Monocytes Absolute Auto 0.7 X10*3/uL (0.1-1.2); Monocytes Percent Auto 7.7 % (2-11); Neutrophils Percent Auto 79.6 % (45-73); Platelet Count 389 X10*3/uL (160-400); Red Blood Count 4.36 X10*6/uL (4.20-5.50); Red Cell Distribution Width 14.7 % (11.0-16.0); White Blood Count 8.8 X10*3/uL (4.8-10.8)
[2022-02-01 23:44] LABS: INTERNATIONAL NORM RATIO 1.2 (0.9-1.1); Prothrombin Time 13.7 SEC (9.9-13.0)
--- NOTE | 2022-02-01 23:50 | ED.GENADULT ---
HPI - General Adult General Chief complaint: General Medical Stated complaint: BODYACHES,THROAT PAIN,NAUSEA,VOMITING X'S 3 DAYS Time Seen by Provider: 02/01/22 23:34 History of Present Illness HPI narrative: This is a 71-year-old female who states she has not felt well for the last few days. The patient notes that she has had pain in her right lower abdomen for about a week. She has had some throat discomfort and body aches since yesterday and today started this morning vomited about 3 times. She denies any diarrhea. She denies any urinary symptoms. Denies any cough or shortness of breath. She denies any headache. She has not had any rhinorrhea. Related Data Home Medications Medication Instructions Recorded Confirmed fluticasone 250 mcg-salmeterol 50 1 ea INHALATION BID 08/05/21 01/28/22 mcg/dose blistr powdr for inhalation (Wixela Inhub) umeclidinium 62.5 mcg/actuation 1 inh INHALATION DAILY 10/16/21 01/28/22 blister powder for inhalation (Incruse Ellipta) buspirone 5 mg tablet 5 mg PO BID PRN 01/15/22 01/28/22 prednisone 2.5 mg tablet 5 mg PO DAILY tab 01/28/22 01/28/22 Previous Rx's Medication Instructions Recorded albuterol sulfate 90 mcg/actuation 2 inh INHALATION Q6H PRN 30 Days 07/15/21 aerosol inhaler #18 g budesonide 0.5 mg/2 mL suspension 0.5 mg (2 mL) INHALATION BID 30 07/15/21 for nebulization Days #120 ml ipratropium 0.5 mg-albuterol 3 mg 3 ml INHALATION QID #360 ml 07/15/21 (2.5 mg base)/3 mL nebulization soln loratadine 10 mg tablet 10 mg PO DAILY 90 Days #90 tab 09/22/21 levothyroxine 25 mcg tablet 25 mcg PO DAILY 90 Days #90 tab 12/25/21 diltiazem HCl 120 mg 120 mg PO DAILY #30 cap 01/11/22 capsule,extended release 24 hr (Cardizem CD) dronedarone 400 mg tablet (Multaq) 400 mg PO BID 90 Days #180 tab 01/21/22 apixaban 5 mg tablet (Eliquis) 5 mg PO BID #60 tab 01/25/22 simvastatin 5 mg tablet 5 mg PO DAILY 90 Days #90 tab 01/28/22 ondansetron 4 mg disintegrating 4 mg PO Q8H PRN #6 tab 02/02/22 tablet Allergies Allergy/AdvReac Type Severity Reaction Status Date / Time sulfamethoxazole Allergy Severe Rash Verified 01/28/22 13:31 [From Bactrim] trimethoprim [From Bactrim] Allergy Severe Rash Verified 01/28/22 13:31 levofloxacin [From LEVAQUIN] Allergy Intermediate RASH SOB, Verified 01/28/22 13:31 DIZZYNESS tramadol AdvReac Severe abdominal Verified 01/28/22 13:31 pain, vomiting acetaminophen AdvReac Intermediate vomitting Verified 01/28/22 13:31 [Tylenol-Codeine #3] atorvastatin [Lipitor] AdvReac Intermediate nausea Verified 01/28/22 13:31 codeine [CODEINE] AdvReac Intermediate NAUSEA & Verified 01/28/22 13:31 VOMITING morphine [MORPHINE] AdvReac Intermediate NAUSEA & Verified 01/28/22 13:31 VOMITING pravastatin AdvReac Intermediate myalgia Verified 01/28/22 13:31 rosuvastatin AdvReac Mild myalgia Verified 01/28/22 13:31 Review of Systems Review of Systems: Yes all other systems are reviewed and are negative Constitutional: Constitutional: Reports as per HPI and Denies fever(s) Eyes: Eyes: Reports as per HPI and Reports no additional eye complaints ENT: Reports system reviewed and no additional complaints, except as documented, Reports as per HPI, Denies nasal congestion, Denies nasal discharge and Reports sore throat Cardiovascular: Cardiovascular: Reports as per HPI, Denies chest pain and Denies dyspnea Respiratory: Respiratory: Reports as per HPI, Denies cough and Denies dyspnea Gastrointestinal: Gastrointestinal: Reports as per HPI, Denies abdominal pain, Denies diarrhea, Reports nausea and Reports vomiting Genitourinary: Genitourinary: Reports as per HPI, Denies hematuria, Denies urinary frequency and Denies dysuria Musculoskeletal: Musculoskeletal: Reports no additional musculoskeletal complaints and Denies numbness Integumentary/Breasts: Skin/Breast: Reports as per HPI and Denies rash Neurologic: Reports as per HPI, Denies focal weakness and Denies numbness Psychiatric: Psychiatric: Reports no additional psychiatric complaints and Reports as per HPI Endocrine: Endocrine: Reports no additional endocrine complaints and Reports as per HPI Hematologic/Lymphatic: Hematologic/Lymphatic: Reports no additional hematologic/lymphatic complaints, Reports as per HPI and Reports other (No peripheral edema) [facility] Past Medical History Medical History Asthma Asthma-COPD overlap syndrome Breast pain, left Chronic allergic rhinitis Dyslipidemia Eosinophilia GERD (gastroesophageal reflux disease) HTN (hypertension) Hypothyroidism Mild recurrent major depression Osteopenia (~2007) Paroxysmal atrial fibrillation (~01/2021) Pneumonia Polyarthralgia Postmenopausal Steroid dependent Tubular adenoma of colon (~2009) Surgical History History of colonoscopy History of D&C (~2002) History of knee surgery History of nasal polypectomy (~2007) History of right breast biopsy (~1998) History of shoulder surgery (~2006) History of tubal ligation Family History Family History Father Medical history unknown Mother Medical history unknown Social History Social History Household Members: None Housing: House Do you presently have visiting nurse or other home services: Yes Alcohol intake: never Patient Tobacco Use Status: Former Tobacco user Tobacco use type: Cigarette e-Cigarette/Vaping Use: Never Used Second Hand Smoke Exposure: No Advance Directives: Yes Advance Directives on File: Yes Advance Directives Date on File: 11/10/20 service: No Current occupational status: disabled Cognitive needs: Yes (cane) Hearing needs: No Vision needs: Yes (glasses) Physical Exam ED Vital Signs: Vital Signs - 24 hr 02/01/22 23:10 02/01/22 23:11 02/02/22 01:34 Temperature 98.4 F 98.8 F 99.3 F Pulse Rate 103 H 85 77 Respiratory Rate 16 12 16 Blood Pressure 140/64 H 154/67 H 147/54 H Pulse Oximetry 99 97 98 BMI result Body Mass Index 25.0 Const General: no acute distress Orientation/consciousness: patient oriented x3 HENMT Head: Yes normal to inspection General nose exam: Normal external nose present Mouth: moist mucous membranes Throat: Yes posterior oropharynx normal, Yes tonsils normal and Yes uvula midline Eyes Eyelids: Yes eyelids normal Conjunctivae: conjunctivae normal Pupils: Equal, round and reactive pupils present Neck Neck: Yes supple Resp Effort & Inspection: normal respiratory effort Auscultation: clear to auscultation bilaterally Cardio Rate: regular rate Rhythm: regular rhythm Heart sounds: S1 normal heart sound present, S2 normal heart sound present, no gallops, no murmurs and no rubs GI Inspection: No distended Palpation (GI): Soft to palpation and Tenderness to palpation present (GI) (Mild right lower quadrant around McBurney's point) in the RLQ and at McBurney's point Auscultation: normal bowel sounds Skin General skin exam: other (Warm and dry) Neuro General: patient oriented x3 and CN's II-XI intact bilaterally Cranial nerves: Yes Equal, round and reactive pupils present Extrem General: Yes no pedal edema Psych Affect: normal affect Attitude: cooperative Medical Decision Making MDM Narrative Medical decision making narrative: Patient with multiple complaints including vomiting, abdominal pain, sore throat, body aches. Patient had mild right lower quadrant tenderness. COVID test was negative. Urinalysis is negative. CT of the abdomen and pelvis showed no evidence of appendicitis or any other acute pathology. Patient's pharynx appeared normal. Patient appears to be relatively frequent visitor to the emergency department. Patient had no vomiting in the ED. patient is safe for outpatient treatment Lab Data Result diagrams: 02/01/22 23:33 02/01/22 23:33 Labs: Lab Results 02/01/22 02/01/22 02/01/22 Range/Units 23:33 23:33 23:33 WBC 8.8 (4.8-10.8) X10*3/uL RBC 4.36 (4.20-5.50) X10*6/uL Hgb 11.3 L (12.0-16.0) g/dl Hct 37.1 (37.0-47.0) % MCV 85.1 (80.0-98.0) fL MCH 25.9 L (27.0-33.0) pg MCHC 30.5 L (31.0-35.0) g/dl RDW 14.7 (11.0-16.0) % Plt Count 389 (160-400) X10*3/uL MPV 9.2 L (9.4-12.3) fL Immature Gran % (Auto) 0.3 (0.0-0.4) % Neut % (Auto) 79.6 H (45-73) % Lymph % (Auto) 12.0 L (20-40) % [place] % (Auto) 7.7 (2-11) % Eos % (Auto) 0.1 (0-4) % Baso % (Auto) 0.3 (0-2) % Lymph # (Auto) 1.1 L (1.2-4.9) X10*3/uL [place] # (Auto) 0.7 (0.1-1.2) X10*3/uL Eos # (Auto) 0.0 (0.0-0.4) X10*3/uL Baso # (Auto) 0.0 (0.0-0.2) X10*3/uL Abs Immat Gran (auto) 0.03 (0.00-0.03) X10*3/uL Absolute Neuts (auto) 7.0 (2.0-8.3) x10*3/uL Absolute Nucleated RBC 0.000 (0.0-0.012) X10*3/uL Nucleated RBC % (auto) 0.0 (0.0-0.2) /100WBC PT 13.7 H (9.9-13.0) SEC INR 1.2 H (0.9-1.1) Sodium 140 (135-145) mmol/L Potassium 4.9 (3.3-5.1) mmol/L Chloride 105 (96-108) mmol/L Carbon Dioxide 25 (22-29) mmol/L Anion Gap 15 (12-20) BUN 22 H (9-16) mg/dL Creatinine 1.45 H (0.5-1.4) mg/dL Estim Creat Clear Calc 31.5 Estimated GFR 35 Random Glucose 95 (60-115) mg/dL Calcium 9.5 (8.4-10.2) mg/dL Total Bilirubin 0.4 (0.0-1.0) mg/dL AST 16 (5-31) U/L ALT 11 (0-31) U/L Alkaline Phosphatase 78 (39-117) U/L Total Protein 7.2 (6.5-8.0) g/dL Albumin 4.1 (3.5-5.0) g/dL Lipase 42 (8-78) U/L Urine Color Urine Appearance Urine pH (5.0-8.0) Ur Specific [place] (1.005-1.025) Urine Protein (NEG-TRACE) MG/DL Urine Glucose (UA) (NEG) MG/DL Urine Ketones (NEG) MG/DL Urine Blood (NEG) Urine Nitrite (NEG) Ur Leukocyte Esterase (NEG) Urine RBC (0) /HPF Urine WBC (0-4) /HPF Ur Squamous Epith Cells /LPF Calcium Phosphate Cryst /LPF Urine Bacteria /LPF COVID-19 (ROBLES) (Negative) COVID-19 Clin Com Influenza Type A (DUGLAS) (Negative) Influenza Type B (DUGLAS) (Negative) Influenza A & B Note 02/01/22 02/01/22 02/02/22 Range/Units 23:33 23:33 03:42 WBC (4.8-10.8) X10*3/uL RBC (4.20-5.50) X10*6/uL Hgb (12.0-16.0) g/dl Hct (37.0-47.0) % MCV (80.0-98.0) fL MCH (27.0-33.0) pg MCHC (31.0-35.0) g/dl RDW (11.0-16.0) % Plt Count (160-400) X10*3/uL MPV (9.4-12.3) fL Immature Gran % (Auto) (0.0-0.4) % Neut % (Auto) (45-73) % Lymph % (Auto) (20-40) % [place] % (Auto) (2-11) % Eos % (Auto) (0-4) % Baso % (Auto) (0-2) % Lymph # (Auto) (1.2-4.9) X10*3/uL [place] # (Auto) (0.1-1.2) X10*3/uL Eos # (Auto) (0.0-0.4) X10*3/uL Baso # (Auto) (0.0-0.2) X10*3/uL Abs Immat Gran (auto) (0.00-0.03) X10*3/uL Absolute Neuts (auto) (2.0-8.3) x10*3/uL Absolute Nucleated RBC (0.0-0.012) X10*3/uL Nucleated RBC % (auto) (0.0-0.2) /100WBC PT (9.9-13.0) SEC INR (0.9-1.1) Sodium (135-145) mmol/L Potassium (3.3-5.1) mmol/L Chloride (96-108) mmol/L Carbon Dioxide (22-29) mmol/L Anion Gap (12-20) BUN (9-16) mg/dL Creatinine (0.5-1.4) mg/dL Estim Creat Clear Calc Estimated GFR Random Glucose (60-115) mg/dL Calcium (8.4-10.2) mg/dL Total Bilirubin (0.0-1.0) mg/dL AST (5-31) U/L ALT (0-31) U/L Alkaline Phosphatase (39-117) U/L Total Protein (6.5-8.0) g/dL Albumin (3.5-5.0) g/dL Lipase (8-78) U/L Urine Color YELLOW Urine Appearance CLEAR Urine pH 6.5 (5.0-8.0) Ur Specific [place] 1.015 (1.005-1.025) Urine Protein NEG (NEG-TRACE) MG/DL Urine Glucose (UA) NEG (NEG) MG/DL Urine Ketones NEG (NEG) MG/DL Urine Blood 1+ H (NEG) Urine Nitrite NEG (NEG) Ur Leukocyte Esterase NEG (NEG) Urine RBC 1-4 (0) /HPF Urine WBC 0-2 (0-4) /HPF Ur Squamous Epith Cells TRACE /LPF Calcium Phosphate Cryst 1+ /LPF Urine Bacteria NONE /LPF COVID-19 (ROBLES) Negative (Negative) COVID-19 Clin Com See Note Influenza Type A (DUGLAS) Negative (Negative) Influenza Type B (DUGLAS) Negative (Negative) Influenza A & B Note See Note Imaging Data CT of the abdomen pelvis without IV contrast: Radiologist's impression: IMPRESSION: No acute findings identified in the abdomen/pelvis. Normal appendix.? Discharge Plan Discharge Clinical Impression: Sore throat, Vomiting, Abdominal pain Patient Disposition: Home, Self-Care Instructions: Acute Nausea and Vomiting (ED), Abdominal Pain (ED) Additional Instructions: Use acetaminophen for pain. Use the ondansetron as prescribed for nausea. Trying to drink plenty of fluids. Return for any new or worsened symptoms. Follow up with your primary care physician. Prescriptions: New ondansetron 4 mg tablet,disintegrating 4 mg PO Q8H PRN (Reason: nausea and vomiting) Qty: 6 0RF No Action loratadine 10 mg tablet 10 mg PO DAILY 90 Days Qty: 90 3RF levothyroxine 25 mcg tablet 25 mcg PO DAILY 90 Days Qty: 90 1RF diltiazem HCl [Cardizem CD] 120 mg capsule,extended release 24hr 120 mg PO DAILY Qty: 30 5RF Multaq 400 mg tablet 400 mg PO BID 90 Days Qty: 180 2RF Eliquis 5 mg tablet 5 mg PO BID Qty: 60 5RF prednisone 2.5 mg tablet 5 mg PO DAILY 0RF simvastatin 5 mg tablet 5 mg PO DAILY 90 Days Qty: 90 0RF buspirone 5 mg tablet 5 mg PO BID PRN0RF ipratropium-albuterol 0.5 mg-3 mg(2.5 mg base)/3 mL solution for nebulization 3 ml inhalation QID Qty: 360 11RF budesonide 0.5 mg/2 mL suspension for nebulization 0.5 mg inhalation BID 30 Days Qty: 120 11RF albuterol sulfate 90 mcg/actuation HFA aerosol inhaler 2 inh inhalation Q6H PRN (Reason: shortness of breath or wheezing) 30 Days Qty: 18 12RF fluticasone propion-salmeterol [Wixela Inhub] 250-50 mcg/dose blister with device 1 ea inhalation BID 0RF Incruse Ellipta 62.5 mcg/actuation blister with device 1 inh inhalation DAILY 0RF
[2022-02-02 00:01] LABS: Alanine Aminotransferase 11 U/L (0-31); Albumin Level 4.1 g/dL (3.5-5.0); Alkaline Phosphatase 78 U/L (39-117); Anion Gap 15 (12-20); Aspartate Amino Transferase 16 U/L (5-31); Bilirubin Total 0.4 mg/dL (0.0-1.0); Blood Urea Nitrogen 22 mg/dL (9-16); COVID-19 Test Negative (Negative); Calcium 9.5 mg/dL (8.4-10.2); Carbon Dioxide 25 mmol/L (22-29); Chloride 105 mmol/L (96-108); Creatinine Clr Calc Pharmacy 31.5; Estimated Glomerular Filt Rate 35; Glucose Random 95 mg/dL (60-115); IDNOW Serial# 16C4AD1C; Influenza A Negative (Negative); Influenza B2 Negative (Negative); Lipase 42 U/L (8-78); Potassium 4.9 mmol/L (3.3-5.1); Sodium 140 mmol/L (135-145); Total Protein 7.2 g/dL (6.5-8.0)
[2022-02-02] MEDS: 0.9 % Sodium Chloride 1,000 ML 999 ML IV (00:22)
[2022-02-02] MEDS: ondansetron HCL 4 MG/2 ML VIAL IVPUSH (00:22)
[2022-02-02 01:34] VITALS: BP 147/54; PULSE 77; RESP 16; TEMP 37.4; O2SAT 98
[2022-02-02] MEDS: Throat Lozenge, Medicated LOZENGE 1 LOZENGE MUCOUS MEM (03:46)
[2022-02-02 03:50] LABS: Appearance Urine CLEAR; Color Urine YELLOW; Glucose Urine UA NEG (NEG); Leukocyte Esterase Urine NEG (NEG); Nitrite Urine NEG (NEG); PH 6.5 (5.0-8.0); Specific Gravity - Urine 1.015 (1.005-1.025); UACC Culture Trigger NO; Urine Blood 1+ (NEG); Urine Ketones NEG (NEG); Urine Protein NEG (NEG-TRACE)
[2022-02-02 03:55] LABS: Calcium Phosphate Crystals Ur 1+ /LPF; Squamous Epithelial Cell Urine TRACE /LPF; WBC Urine 0-2 /HPF (0-4)
--- NOTE | 2022-02-02 04:33 | PC.NURSE ---
I assumed nursing care of Sona upon her arrival to bed 7. She has remained alert, oriented x 3, makes eye contact with RN, is calm and cooperative. Respirations are non-labored, RR WNL, no cyanosis, she speaks in full sentences, room air sats 95% or better. There has been nausea, no vomiting - nausea was relieved with zofran. Pt has been discharged at this time. She verbalized an understanding of all DC orders and ambulated out of the ED independently and with steady gait.
== END 2022-02-02 04:38 | disposition home or self-care (01) ==
PROVIDERS: Emergency Provider Emergency Medicine; PCP Internal Medicine
DX: J02.9 Acute pharyngitis, unspecified (principal); R11.10 Vomiting, unspecified; R10.31 Right lower quadrant pain; M79.10 Myalgia, unspecified site; R11.2 Nausea with vomiting, unspecified; F17.210 Nicotine dependence, cigarettes, uncomplicated; Z20.822 Contact with and (suspected) exposure to COVID-19; Z71.6 Tobacco abuse counseling; Z79.899 Other long term (current) drug therapy
CPT/HCPCS: 74176; 80053; 81001; 83690; 85025; 85610; 87502; 87635; 96361; 96374; 99283; 99284; J2405

== ENCOUNTER → 2022-02-09 09:59 | Outpatient (BNVA) | payer OTHER, SELFPAY | PROVIDERS: PCP Internal Medicine; Visit Provider Surgery Vascular Surgery | DX: I82.411 Acute embolism and thrombosis of right femoral vein (principal) | CPT/HCPCS: 99212 ==

== ENCOUNTER 2022-03-04 09:57 | Outpatient (REF) | payer OTHER, SELFPAY | END 2022-03-04 09:58 | disposition home or self-care (01) | LOC: HO.MDS 09:57 | PROVIDERS: PCP Internal Medicine; Visit Provider Hospitalist | DX: J45.50 Severe persistent asthma, uncomplicated (principal) | CPT/HCPCS: 96372; J2182 ==

== ENCOUNTER 2022-04-01 09:58 | Outpatient (REF) | payer OTHER, SELFPAY | END 2022-04-01 09:59 | disposition home or self-care (01) | LOC: HO.MDS 09:58 | PROVIDERS: PCP Internal Medicine; Visit Provider Hospitalist | DX: J45.50 Severe persistent asthma, uncomplicated (principal) | CPT/HCPCS: 96372; J2182 ==

== ENCOUNTER 2022-04-12 09:00 | Outpatient (REF) | payer OTHER, SELFPAY ==
[2022-04-12 10:00] LABS: Alanine Aminotransferase 10 U/L (0-31); Albumin Level 4.3 g/dL (3.5-5.0); Alkaline Phosphatase 78 U/L (39-117); Anion Gap 12 (12-20); Aspartate Amino Transferase 14 U/L (5-31); Bilirubin Total 0.2 mg/dL (0.0-1.0); Blood Urea Nitrogen 18 mg/dL (9-16); Calcium 9.4 mg/dL (8.4-10.2); Carbon Dioxide 27 mmol/L (22-29); Chloride 106 mmol/L (96-108); Cholesterol 324 mg/dL; Estimated Glomerular Filt Rate 41; Glucose Fasting 85 mg/dL (60-99); HDL Cholesterol 61 mg/dL; LDL Cholesterol Calculated 228 mg/dl; Potassium 4.4 mmol/L (3.3-5.1); Sodium 141 mmol/L (135-145); Total Protein 7.4 g/dL (6.5-8.0); Triglycerides 179 mg/dL
[2022-04-12 10:20] LABS: Thyroid Stimulating Hormone 3.12 uIU/mL (0.32-4.0); Vitamin D 25-OH Total 26.4 ng/mL (>30)
[2022-04-14 05:17] LABS: NT-proBNP 369 pg/mL
[2022-04-14 10:52] LABS: Thyroglobulin Antibodies <1 IU/mL (< or = 1)
[2022-04-14 10:56] LABS: Thyroid Peroxidase Antibodies <1 IU/mL (<9)
== END 2022-04-12 09:01 | disposition home or self-care (01) ==
LOC: HO.LAB 09:00
PROVIDERS: PCP Internal Medicine; Visit Provider Internal Medicine
DX: E03.9 Hypothyroidism, unspecified (principal); R60.0 Localized edema; E78.5 Hyperlipidemia, unspecified; J44.9 Chronic obstructive pulmonary disease, unspecified; E55.9 Vitamin D deficiency, unspecified
CPT/HCPCS: 36415; 80053; 80061; 82306; 83880; 84443; 86376; 86800

== ENCOUNTER → 2022-04-22 08:47 | Outpatient (BNVA) | payer OTHER, SELFPAY | PROVIDERS: PCP Internal Medicine; Referring Provider Internal Medicine; Visit Provider Internal Medicine Cardiovascular Disease | DX: R94.31 Abnormal electrocardiogram [ECG] [EKG] (principal) | CPT/HCPCS: 93005 ==

== ENCOUNTER 2022-05-04 11:28 | Outpatient (REF) | payer OTHER, SELFPAY ==
--- NOTE | ~2022-05-04 | US_ITS ---
EXAMINATION: US VENOUS ULTRASOUND WITH DOPPLER LOWER EXTREMITY, RIGHT CLINICAL INFORMATION: Follow-up DVT 12/14/2021 COMPARISON: prior DVT studies dated 12/14/2021 and 11/04/2021 TECHNIQUE: Ultrasound of the deep veins is performed from the hip to the calf with compression sonography and color and pulse Doppler assessment. Spectral analysis with color-flow imaging is performed. FINDINGS: The common femoral vein demonstrates chronic changes with some wall thickening and incomplete compressibility. The femoral vein is small in caliber and only partially compressible with a recanalized appearance compared to the prior. The popliteal vein is patent with chronic wall changes, not completely compressible, compatible with resolving DVT. The peroneal veins and posterior tibial appear unremarkable. The great saphenous vein appears normal. Findings are suggestive of evolving changes of chronic deep. There is no evidence of acute thrombus. The superficial great saphenous veins within normal limits. US/US venous duplex LE RT IMPRESSION: Chronic changes of DVT on the right, slightly improved from prior. No evidence of acute venous thrombosis.
== END 2022-05-04 11:29 | disposition home or self-care (01) ==
LOC: HO.US 11:28
PROVIDERS: Visit Provider Internal Medicine
DX: I82.411 Acute embolism and thrombosis of right femoral vein (principal)
CPT/HCPCS: 93971

== ENCOUNTER 2022-05-07 10:44 | Outpatient (REF) | payer OTHER, SELFPAY | END 2022-05-07 10:45 | disposition home or self-care (01) | LOC: HO.MDS 10:44 | PROVIDERS: Visit Provider Hospitalist | DX: J45.50 Severe persistent asthma, uncomplicated (principal) | CPT/HCPCS: 96372; J2182 ==

== ENCOUNTER → 2022-05-17 13:51 | Outpatient (BNVA) | payer OTHER, SELFPAY | PROVIDERS: PCP Internal Medicine; Visit Provider Student in an Organized Health Care Education/Training Program | DX: M25.50 Pain in unspecified joint (principal); M48.061 Spinal stenosis, lumbar region without neurogenic claudication; M17.0 Bilateral primary osteoarthritis of knee; E55.9 Vitamin D deficiency, unspecified; E03.9 Hypothyroidism, unspecified; I48.91 Unspecified atrial fibrillation; Z79.01 Long term (current) use of anticoagulants; Z79.899 Other long term (current) drug therapy; Z11.59 Encounter for screening for other viral diseases; Z11.7 Encounter for testing for latent tuberculosis infection | CPT/HCPCS: 99212 ==

== ENCOUNTER 2022-05-20 09:58 | Outpatient (REF) | payer OTHER, SELFPAY ==
--- NOTE | ~2022-05-20 | XR_ITS ---
EXAMINATION: BILATERAL KNEE X-RAY CLINICAL INFORMATION: Pain COMPARISON: Previous x-ray from 2015 TECHNIQUE: Standing AP, lateral and sunrise views of both knees FINDINGS: Right: Bone alignment is normal. No fracture or dislocation is seen. The femoral tibial joints are normal. There is arthritis at the patellofemoral joint. There is an osteophyte at the quadriceps tendon insertion to the patella. There is no joint effusion. Left: Bone alignment is normal. No fracture or dislocation is seen. There is arthritis at the patellofemoral joint. Femoral tibial joints are normal. There is an osteophyte at the quadriceps tendon insertion to the patella. There is no joint effusion. XR/XR knee LT 2V IMPRESSION: Bilateral arthritis at the patellofemoral joints.
--- NOTE | ~2022-05-20 | XR_ITS ---
EXAMINATION: BILATERAL HAND X-RAY CLINICAL INFORMATION: Pain COMPARISON: Previous x-rays December 1999 and TECHNIQUE: 3 views of each hand FINDINGS: Left: Bone alignment is normal. No fracture or dislocation is seen. There is mild arthritis first SENIOR CARE joint with small osteophytes. Joint spaces are otherwise normal. Soft tissues are normal. Right: Bone alignment is normal. There is arthritis at the IP joints with joint space narrowing and osteophyte formation. There is a well-corticated ossification adjacent to the dorsal distal phalanx of the fourth finger at the DIP joint. This is not definitely seen on prior exam and is questionable for fracture, age indeterminate. There is cortical thickening along the right fifth carpal bone questionable for changes from old trauma as well. This is unchanged. Joint spaces are otherwise normal. Soft tissues are normal. XR/XR hand wrist RT IMPRESSION: Left: Mild arthritis at the first joint. Right: Question fracture of the dorsal distal pharynx of the fourth finger at the DIP joint, uncertain age. Arthritis at the IP joints.
--- NOTE | ~2022-05-20 | XR_ITS ---
EXAMINATION: BILATERAL KNEE X-RAY CLINICAL INFORMATION: Pain COMPARISON: Previous x-ray from 2015 TECHNIQUE: Standing AP, lateral and sunrise views of both knees FINDINGS: Right: Bone alignment is normal. No fracture or dislocation is seen. The femoral tibial joints are normal. There is arthritis at the patellofemoral joint. There is an osteophyte at the quadriceps tendon insertion to the patella. There is no joint effusion. Left: Bone alignment is normal. No fracture or dislocation is seen. There is arthritis at the patellofemoral joint. Femoral tibial joints are normal. There is an osteophyte at the quadriceps tendon insertion to the patella. There is no joint effusion. XR/XR knee RT 2V IMPRESSION: Bilateral arthritis at the patellofemoral joints.
--- NOTE | ~2022-05-20 | XR_ITS ---
EXAMINATION: BILATERAL HAND X-RAY CLINICAL INFORMATION: Pain COMPARISON: Previous x-rays December 1999 and TECHNIQUE: 3 views of each hand FINDINGS: Left: Bone alignment is normal. No fracture or dislocation is seen. There is mild arthritis first CORRECTION joint with small osteophytes. Joint spaces are otherwise normal. Soft tissues are normal. Right: Bone alignment is normal. There is arthritis at the IP joints with joint space narrowing and osteophyte formation. There is a well-corticated ossification adjacent to the dorsal distal phalanx of the fourth finger at the DIP joint. This is not definitely seen on prior exam and is questionable for fracture, age indeterminate. There is cortical thickening along the right fifth carpal bone questionable for changes from old trauma as well. This is unchanged. Joint spaces are otherwise normal. Soft tissues are normal. XR/XR hand wrist LT IMPRESSION: Left: Mild arthritis at the first joint. Right: Question fracture of the dorsal distal pharynx of the fourth finger at the DIP joint, uncertain age. Arthritis at the IP joints.
--- NOTE | ~2022-05-20 | XR_ITS ---
EXAMINATION: BILATERAL KNEE X-RAY CLINICAL INFORMATION: Pain COMPARISON: Previous x-ray from 2015 TECHNIQUE: Standing AP, lateral and sunrise views of both knees FINDINGS: Right: Bone alignment is normal. No fracture or dislocation is seen. The femoral tibial joints are normal. There is arthritis at the patellofemoral joint. There is an osteophyte at the quadriceps tendon insertion to the patella. There is no joint effusion. Left: Bone alignment is normal. No fracture or dislocation is seen. There is arthritis at the patellofemoral joint. Femoral tibial joints are normal. There is an osteophyte at the quadriceps tendon insertion to the patella. There is no joint effusion. XR/XR knee standing BI IMPRESSION: Bilateral arthritis at the patellofemoral joints.
[2022-05-20 11:18] LABS: MANUAL DIFF FLAG NO
[2022-05-20 11:42] LABS: Basophils Absolute Auto 0.1 X10*3/uL (0.0-0.2); Basophils Percent Auto 0.7 % (0-2); Eosinophils Absolute Auto 0.1 X10*3/uL (0.0-0.4); Eosinophils Percent Auto 0.9 % (0-4); Hematocrit 37.7 % (37.0-47.0); Hemoglobin 11.4 g/dl (12.0-16.0); Imm Gran Abs Auto 0.02 X10*3/uL (0.00-0.03); Imm Gran Pct Auto 0.3 % (0.0-0.4); Lymphocytes Absolute Auto 2.1 X10*3/uL (1.2-4.9); Lymphocytes Percent Auto 30.2 % (20-40); Mean Corpuscular HGB Conc 30.2 g/dl (31.0-35.0); Mean Corpuscular Hemoglobin 25.8 pg (27.0-33.0); Mean Corpuscular Volume 85.3 fL (80.0-98.0); Mean Platelet Volume 9.7 fL (9.4-12.3); Monocytes Absolute Auto 0.5 X10*3/uL (0.1-1.2); Monocytes Percent Auto 7.3 % (2-11); Neutrophils Absolute Auto 4.1 x10*3/uL (2.0-8.3); Neutrophils Percent Auto 60.6 % (45-73); Platelet Count 394 X10*3/uL (160-400); Red Blood Count 4.42 X10*6/uL (4.20-5.50); Red Cell Distribution Width 15.2 % (11.0-16.0); White Blood Count 6.8 X10*3/uL (4.8-10.8)
[2022-05-20 12:03] LABS: Rheumatoid Factor < 15.0 IU/mL (<15.0)
[2022-05-20 12:16] LABS: Alanine Aminotransferase 12 U/L (0-31); Albumin Level 4.3 g/dL (3.5-5.0); Alkaline Phosphatase 81 U/L (39-117); Anion Gap 16 (12-20); Aspartate Amino Transferase 16 U/L (5-31); Bilirubin Total < 0.2 mg/dL (0.0-1.0); Blood Urea Nitrogen 21 mg/dL (9-16); C Reactive Protein 0.58 mg/dL (< or = 0.50); Calcium 9.4 mg/dL (8.4-10.2); Carbon Dioxide 26 mmol/L (22-29); Chloride 104 mmol/L (96-108); Cholesterol 317 mg/dL; Estimated Glomerular Filt Rate 36; Glucose Fasting 81 mg/dL (60-99); HDL Cholesterol 65 mg/dL; LDL Cholesterol Calculated 210 mg/dl; Potassium 4.6 mmol/L (3.3-5.1); Sodium 141 mmol/L (135-145); Total Protein 7.6 g/dL (6.5-8.0); Triglycerides 211 mg/dL
[2022-05-20 12:32] LABS: HBS Num1 1.66 mIU/mL (0-7.99); HBc Num1 0.07 S/CO (0.00-0.79); Hepatitis B Core Antibody Nonreactive (Nonreactive); Hepatitis B Surface Antigen Negative (Negative); ~HepC Num1 0.75 S/CO (0.00-0.79); ~Hepatitis B Surface Antibody NONREACTIVE (Nonreactive); ~Hepatitis C Antibody Nonreactive (Nonreactive)
[2022-05-20 12:35] LABS: Thyroid Stimulating Hormone 4.47 uIU/mL (0.32-4.0)
[2022-05-20 12:43] LABS: Erythrocyte Sedimentation Rate 26 MM/HR (0-20)
[2022-05-21 04:48] LABS: Hepatitis A Antibody IgM 0.41 Index (0-0.79); ~Hepatitis A Antibody IgM Nonreactive (Nonreactive)
[2022-05-22 13:47] LABS: HCV Log PCR <1.18 NOT DETECTED Log IU/mL (NOT DETECTED); HepC Viral Load <15 NOT DETECTED IU/mL (NOT DETECTED)
[2022-05-23 01:27] LABS: TS Negative Control Passed; TS Panel A 0; TS Panel B 0; TS Positive Control Passed; TSpotTB Negative (Negative)
[2022-05-24 14:52] LABS: Antibody to SS-A Antigen <1.0 NEG AI (<1.0 NEG); Antibody to SS-B Antigen <1.0 NEG AI (<1.0 NEG)
[2022-05-24 16:33] LABS: Cyclic Citrullinated Peptide <16 UNITS
[2022-05-25 12:07] LABS: IgA 131 mg/dL (70-320); IgG 1221 mg/dL (600-1540); IgM 211 mg/dL (50-300)
[2022-05-26 14:56] LABS: Anti Nuclear Antibody Screen NEGATIVE (NEGATIVE)
[2022-05-26 15:51] LABS: Vitamin D 25-OH, D2 <4 ng/mL; Vitamin D 25-OH, D3 29 ng/mL; Vitamin D 25-OH, Total 29 ng/mL (30-100)
== END 2022-05-20 09:59 | disposition home or self-care (01) ==
LOC: HO.XRAY 09:58
PROVIDERS: PCP Internal Medicine; Visit Provider Student in an Organized Health Care Education/Training Program
DX: E78.5 Hyperlipidemia, unspecified (principal); J44.9 Chronic obstructive pulmonary disease, unspecified; E03.9 Hypothyroidism, unspecified; M25.50 Pain in unspecified joint; M48.061 Spinal stenosis, lumbar region without neurogenic claudication; M17.0 Bilateral primary osteoarthritis of knee; Z11.59 Encounter for screening for other viral diseases; Z11.7 Encounter for testing for latent tuberculosis infection; E55.9 Vitamin D deficiency, unspecified
CPT/HCPCS: 36415; 73110; 73130; 73560; 73565; 80053; 80061; 82306; 82550; 82784; 84443; 85025; 85652; 86038; 86039; 86140; 86200; 86235; 86334; 86431; 86481; 86704; 86706; 86709; 86803; 87340; 87522

== ENCOUNTER 2022-06-10 10:02 | Outpatient (REF) | payer OTHER, SELFPAY | END 2022-06-10 10:03 | disposition home or self-care (01) | LOC: HO.MDS 10:02 | PROVIDERS: Visit Provider Hospitalist | DX: J45.50 Severe persistent asthma, uncomplicated (principal) | CPT/HCPCS: 96372; J2182 ==

== ENCOUNTER → 2022-07-02 10:55 | Outpatient (BNVA) | payer OTHER, SELFPAY | PROVIDERS: PCP Internal Medicine; Visit Provider Student in an Organized Health Care Education/Training Program | DX: M17.0 Bilateral primary osteoarthritis of knee (principal); M70.61 Trochanteric bursitis, right hip | CPT/HCPCS: 99212 ==

== ENCOUNTER 2022-07-08 10:03 | Outpatient (REF) | payer OTHER, SELFPAY | END 2022-07-08 10:04 | disposition home or self-care (01) | LOC: HO.MDS 10:03 | PROVIDERS: Visit Provider Hospitalist | DX: J45.50 Severe persistent asthma, uncomplicated (principal) | CPT/HCPCS: 96372; J2182 ==

== ENCOUNTER → 2022-07-09 09:56 | Outpatient (BNVA) | payer OTHER, SELFPAY | PROVIDERS: PCP Internal Medicine; Visit Provider Hospitalist | DX: J45.50 Severe persistent asthma, uncomplicated (principal); J30.9 Allergic rhinitis, unspecified; I48.0 Paroxysmal atrial fibrillation; F19.20 Other psychoactive substance dependence, uncomplicated | CPT/HCPCS: 99212 ==

== ENCOUNTER 2022-07-22 09:56 | Outpatient (REF) | payer OTHER, SELFPAY ==
--- NOTE | ~2022-07-22 | US_ITS ---
EXAMINATION: US RETROPERITONEAL LIMITED (RENAL ONLY) CLINICAL INFORMATION: CKD stage 3. COMPARISON: CT abdomen and pelvis 02/02/2022. Renal ultrasound 08/27/2019. KUB 07/26/2019 and 05/11/2017. TECHNIQUE: Real-time imaging of the kidneys. FINDINGS: RIGHT KIDNEY: 8.1 x 4.2 x 3.7 cm (SAG x AP x TRV). The right kidney is small. The kidney is normal in contour, and echogenicity. Renal cortical thickness is normal. There are 2 cysts measuring 1 x 0.6 x 1.3 cm in the midpole and 1.2 x 0.8 x 0.8 cm in the upper pole. No renal calculi or hydronephrosis. LEFT KIDNEY: 9.6 x 4.6 x 3.2 cm (SAG x AP x TRV). The kidney is normal in size, contour, and echogenicity. Renal cortical thickness is normal. No calculi or focal parenchymal lesions. No hydronephrosis. US/US renal BI IMPRESSION: Small right kidney. Stable small right renal cysts.
== END 2022-07-22 09:57 | disposition home or self-care (01) ==
LOC: HO.US 09:56
PROVIDERS: Visit Provider Internal Medicine Hypertension Specialist
DX: N18.30 Chronic kidney disease, stage 3 unspecified (principal)
CPT/HCPCS: 76775

== ENCOUNTER 2022-07-25 14:16 | Inpatient (IN) | payer OTHER, SELFPAY ==
--- NOTE | ~2022-07-25 | XR_ITS ---
EXAMINATION: XR CHEST CLINICAL INFORMATION: Shortness of breath. COMPARISON: 08/06/2021 chest radiograph. TECHNIQUE: Frontal view of the chest was obtained. FINDINGS: No significant abnormality is noted involving the heart, lungs, mediastinum, bony thorax or soft tissues. XR/XR chest 1V IMPRESSION: No acute cardiopulmonary process.
--- NOTE | 2022-07-25 14:21 | ECG_ITS ---
Test Reason : SOB Blood Pressure : / mmHG Vent. Rate : 083 BPM Atrial Rate : 083 BPM P-R Int : 160 ms QRS Dur : 082 ms QT Int : 360 ms P-R-T Axes : 041 -20 006 degrees QTc Int : 423 ms Normal sinus rhythm Minimal voltage criteria for LVH, may be normal variant ( R in aVL ) Borderline ECG When compared with ECG of 06-AUG-2021 09:47, No significant changes seen Referred By: Gabriella Novak Electronically Signed By:LILY RM MD
[2022-07-25 14:30] VITALS: BP 153/64; BP 156/94; PULSE 80; PULSE 82; RESP 18; TEMP 37.1; O2SAT 90; O2SAT 98; BMI 34.9
--- NOTE | 2022-07-25 14:46 | PC.NURSE ---
PATIENT A&OX3, SUPERVISOR PLATE PASTING APPLIED NSR, VSS, IV PREVIOUSLY INSERTED BY EMS, LABS DRAWN, COVID SWAB OBTAINED, EKG OBTAINED, CXR OBTAINED, CALL KNIGHT WITHIN REACH, WILL CONTINUE TO MONITOR
[2022-07-25 14:51] LABS: MANUAL DIFF FLAG NO
[2022-07-25 14:53] LABS: Basophils Percent Auto 0.4 % (0-2); Eosinophils Percent Auto 0.1 % (0-4); Hematocrit 38.7 % (37.0-47.0); Hemoglobin 11.7 g/dl (12.0-16.0); Imm Gran Abs Auto 0.01 X10*3/uL (0.00-0.03); Imm Gran Pct Auto 0.1 % (0.0-0.4); Lymphocytes Absolute Auto 1.2 X10*3/uL (1.2-4.9); Lymphocytes Percent Auto 16.8 % (20-40); Mean Corpuscular HGB Conc 30.2 g/dl (31.0-35.0); Mean Corpuscular Hemoglobin 25.7 pg (27.0-33.0); Mean Corpuscular Volume 85.1 fL (80.0-98.0); Mean Platelet Volume 9.1 fL (9.4-12.3); Monocytes Absolute Auto 0.5 X10*3/uL (0.1-1.2); Monocytes Percent Auto 7.6 % (2-11); Neutrophils Absolute Auto 5.4 x10*3/uL (2.0-8.3); Platelet Count 396 X10*3/uL (160-400); Red Blood Count 4.55 X10*6/uL (4.20-5.50); Red Cell Distribution Width 15.1 % (11.0-16.0); White Blood Count 7.2 X10*3/uL (4.8-10.8)
--- NOTE | 2022-07-25 14:55 | ED.SOB ---
HPI - SOB/Dyspnea General Chief Complaint: Dyspnea Stated Complaint: SOB,ASTHMA Time Seen by Provider: 07/25/22 14:20 Source: patient and EMS Mode of arrival: EMS Limitations: no limitations History of Present Illness HPI Narrative: 71 yo female with history of Afib on Eliquis, DVTs, CKD, HTN, severe persistent asthma/COPD on chronic prednisone and monthly infusions of Nucala , GERD, hypothyroidism, HLD who presents to the ER for evaluation of worsening SOB, coughing and wheezing x1 week. She has been trying to avoid coming to the hospital all week but today her breathing was worse so she had to call the ambulance. She was 90% on room air per EMS with audible wheezing. She was given Duoneb en route and placed on supplemental oxygen. She denies any fever or chills. She has had some chest tightness, especially when she coughs. She has been nausated but not vomiting, and no diarrhea or abdominal pain. She lives alone and denies sick contacts. MD elicited complaint: shortness of breath, cough and asthma attack Pertinent past history: COPD and asthma Onset (ago): week(s) (1) Timing: progressively worsening Severity: severe Exacerbating factors: lying flat, exertion, movement and coughing Relieving factors: oxygen, rest, bronchodilators and upright position Known history of: COPD and asthma Associated symptoms: chest pain, cough and sputum production Treatment prior to arrival: none Related Data Home oxygen amount: none Home Medications Medication Instructions Recorded Confirmed fluticasone 250 mcg-salmeterol 50 1 ea inhalation BID 08/05/21 07/02/22 mcg/dose blistr powdr for inhalation (Wixela Inhub) buspirone 5 mg tablet 5 mg PO BID PRN Anxiety 01/15/22 07/02/22 omeprazole 20 mg capsule,delayed 20 mg PO DAILY 02/09/22 07/02/22 release escitalopram oxalate 10 mg tablet 10 mg PO DAILY 05/17/22 07/02/22 mepolizumab 100 mg/mL subcutaneous 100 mg subcut Q4W 05/17/22 07/02/22 syringe (Nucala) aripiprazole 5 mg tablet 5 mg PO DAILY 07/09/22 Previous Rx's Medication Instructions Recorded ipratropium 0.5 mg-albuterol 3 mg 3 ml inhalation QID shortness of 07/15/21 (2.5 mg base)/3 mL nebulization breath or wheezing #360 mL soln loratadine 10 mg tablet 10 mg PO DAILY 90 days #90 tabs 09/22/21 dronedarone 400 mg tablet (Multaq) 400 mg PO BID 90 days #180 tabs 01/21/22 ondansetron 4 mg disintegrating 4 mg PO Q8H PRN nausea and 02/02/22 tablet vomiting #6 tabs diltiazem HCl 120 mg 120 mg PO DAILY #30 caps 03/15/22 capsule,extended release 24 hr (Cardizem CD) rosuvastatin 10 mg tablet (Crestor) 10 mg PO DAILY 90 days #90 tabs 05/22/22 prednisone 5 mg tablet 5 mg PO DAILY #30 tabs 06/28/22 apixaban 5 mg tablet (Eliquis) 5 mg PO BID #60 tabs 07/07/22 albuterol sulfate 90 mcg/actuation 2 inh inhalation Q6H PRN shortness 07/09/22 aerosol inhaler of breath or wheezing 30 days #18 grams levothyroxine 25 mcg tablet 25 mcg PO DAILY 90 days #90 tabs 07/19/22 Allergies Allergy/AdvReac Type Severity Reaction Status Date / Time sulfamethoxazole Allergy Severe Rash Verified 07/25/22 14:25 [From Bactrim] trimethoprim [From Bactrim] Allergy Severe Rash Verified 07/25/22 14:25 levofloxacin [From LEVAQUIN] Allergy Intermediate RASH SOB, Verified 07/25/22 14:25 DIZZYNESS tramadol AdvReac Severe abdominal Verified 07/25/22 14:25 pain, vomiting acetaminophen AdvReac Intermediate vomitting Verified 07/25/22 14:25 [Tylenol-Codeine #3] atorvastatin [Lipitor] AdvReac Intermediate nausea Verified 07/25/22 14:25 codeine [CODEINE] AdvReac Intermediate NAUSEA & Verified 07/25/22 14:25 VOMITING morphine [MORPHINE] AdvReac Intermediate NAUSEA & Verified 07/25/22 14:25 VOMITING pravastatin AdvReac Intermediate myalgia Verified 07/25/22 14:25 rosuvastatin AdvReac Mild myalgia Verified 07/25/22 14:25 Review of Systems Review of Systems: Constitutional: No Fever, No Chills ENT/Mouth: No sore throat, No Rhinorrhea, No Swallowing Difficulty Cardiovascular: + Chest Pain, + SOB, No Orthopnea, + Edema Respiratory: + Cough, + Sputum, + Wheezing, + dyspnea Gastrointestinal: + Nausea, No Vomiting, No Diarrhea, No abdominal Pain, No Hematochezia, No Melena Genitourinary: No Dysuria, No Urinary Frequency, No Hematuria Musculoskeletal: No joint pain, No Myalgias Skin: No Skin Lesions, No rash Neuro: No Weakness, No Numbness, No Dizziness, No Headache Psych: No Anxiety/Panic, No Depression Heme/Lymph: No Bruising, No Lymphadenopathy Endocrine: No Polyuria, No Polydipsia [facility] Past Medical History Medical History Asthma Asthma-COPD overlap syndrome Breast pain, left Chronic allergic rhinitis Dyslipidemia Eosinophilia GERD (gastroesophageal reflux disease) HTN (hypertension) Hypothyroidism Mild recurrent major depression Osteoarthritis of knees, bilateral Osteopenia (~2007) Paroxysmal atrial fibrillation (~01/2021) Pneumonia Polyarthralgia Postmenopausal Steroid dependent Tubular adenoma of colon (~2009) Surgical History History of colonoscopy History of D&C (~2002) History of knee surgery History of nasal polypectomy (~2007) History of right breast biopsy (~1998) History of shoulder surgery (~2006) History of tubal ligation Family History Family History Father Medical history unknown Mother Medical history unknown Daughter Lupus Other Arthritis Social History Social History Household Members: None Housing: House Are you a primary client care specialist to a significant other at home: No Do you presently have visiting nurse or other home services: Yes Alcohol intake: never Patient Tobacco Use Status: Former Tobacco user Tobacco use type: Cigarette e-Cigarette/Vaping Use: Never Used Second Hand Smoke Exposure: No Use of substances other than those prescribed or required for medical reasons: No Advance Directives: No Advance Directives Information Provided: Yes Advance Directives Date on File: 11/10/20 service: No Current occupational status: disabled Cognitive needs: Yes (cane) Hearing needs: No Vision needs: Yes (glasses) Physical Exam Vital Signs: Vital Signs: Last Vital Signs Temp 98.7 F 07/25/22 16:56 Pulse 84 07/25/22 17:19 Resp 21 H 07/25/22 17:19 BP 142/53 H 07/25/22 16:56 Pulse Ox 98 07/25/22 16:56 O2 Del Method 07/25/22 16:56 BMI result Body Mass Index 34.9 Appearance: Alert. Oriented X3. No acute distress. Eyes: Pupils equal, round and reactive to light. ENT: Pharynx normal. Neck: Normal inspection. Neck supple. CVS: Normal heart rate and rhythm. Pulses normal. Respiratory: No respiratory distress. Breath sounds with prolonged expiratory phase, coarse, rhonchorous throughout with end expiratory wheezes Abdomen: Soft and nontender. +BS x4 Skin: Skin warm and dry. Normal skin color. Normal skin turgor. No rashes. Extremities: No lower extremity edema. No calf tenderness. Neuro: Oriented X 3. No motor deficit. No sensory deficit. Course Course Course Narrative: 71 yo female with history of COPD/asthma overlap syndrome, depression, CKD, HTN, DVTs, Afib on Eliquis who presents to the ER for evaluation of SOB, cough and wheezing x1 week. Initially saturaing 90% on room air with audible wheezing, improved to 98% on room air post treatment. Continues to be extremely coarse and wheezy, will give 10 mg albuterol now, IV steroids, Mg++ and reassess. CXR, viral swabs, labs and EKG ordered. Dispo pending results and improvement. Reevaluation(s) Reevaluation #1: No leukocytosis. Trop negative. CXR clear. Negative for Flu and COVID. Continues to be very wheezy and coarse. Not feeling much better. Duoneb ordered. Will likely require admission. Patient agreeable, does not feel well enough to go home. Hospitalist TT. MDM - SOB/Dyspnea Medical Records Attestation: I reviewed the patient's medical records. Lab Data Attestation: I reviewed the patient's lab results. Result diagrams: 07/25/22 14:43 07/25/22 14:43 Labs: Lab Results 07/25/22 07/25/22 07/25/22 Range/Units 14:43 14:43 14:43 WBC 7.2 (4.8-10.8) X10*3/uL RBC 4.55 (4.20-5.50) X10*6/uL Hgb 11.7 L (12.0-16.0) g/dl Hct 38.7 (37.0-47.0) % MCV 85.1 (80.0-98.0) fL MCH 25.7 L (27.0-33.0) pg MCHC 30.2 L (31.0-35.0) g/dl RDW 15.1 (11.0-16.0) % Plt Count 396 (160-400) X10*3/uL MPV 9.1 L (9.4-12.3) fL Immature Gran % (Auto) 0.1 (0.0-0.4) % Neut % (Auto) 75.0 H (45-73) % Lymph % (Auto) 16.8 L (20-40) % [place] % (Auto) 7.6 (2-11) % Eos % (Auto) 0.1 (0-4) % Baso % (Auto) 0.4 (0-2) % Lymph # (Auto) 1.2 (1.2-4.9) X10*3/uL [place] # (Auto) 0.5 (0.1-1.2) X10*3/uL Eos # (Auto) 0.0 (0.0-0.4) X10*3/uL Baso # (Auto) 0.0 (0.0-0.2) X10*3/uL Abs Immat Gran (auto) 0.01 (0.00-0.03) X10*3/uL Absolute Neuts (auto) 5.4 (2.0-8.3) x10*3/uL Absolute Nucleated RBC 0.000 (0.0-0.012) X10*3/uL Nucleated RBC % (auto) 0.0 (0.0-0.2) /100WBC PT (10.0-13.1) SEC INR (0.9-1.1) APTT (26.0-36.4) SEC Sodium 140 (135-145) mmol/L Potassium 4.4 (3.3-5.1) mmol/L Chloride 102 (96-108) mmol/L Carbon Dioxide 24 (22-29) mmol/L Anion Gap 18 (12-20) BUN 21 H (9-16) mg/dL Creatinine 1.33 (0.5-1.4) mg/dL Estim Creat Clear Calc 40.5 Estimated GFR 39 Random Glucose 145 H (60-115) mg/dL Calcium 9.6 (8.4-10.2) mg/dL Magnesium 2.0 (1.6-2.6) mg/dL Total Bilirubin 0.2 (0.0-1.0) mg/dL Direct Bilirubin < 0.2 (0.0-0.5) mg/dL AST 16 (5-31) U/L ALT 10 (0-31) U/L Alkaline Phosphatase 87 (39-117) U/L Troponin I High Sens (<3.5-17.0) ng/L B-Natriuretic Peptide (<100) pg/mL Total Protein 7.6 (6.5-8.0) g/dL Albumin 4.4 (3.5-5.0) g/dL COVID-19 (ROBLES) Negative (Negative) COVID-19 Clin Com See Note Influenza Type A (DUGLAS) (Negative) Influenza Type B (DUGLAS) (Negative) Influenza A & B Note 07/25/22 07/25/22 07/25/22 Range/Units 14:43 14:43 14:43 WBC (4.8-10.8) X10*3/uL RBC (4.20-5.50) X10*6/uL Hgb (12.0-16.0) g/dl Hct (37.0-47.0) % MCV (80.0-98.0) fL MCH (27.0-33.0) pg MCHC (31.0-35.0) g/dl RDW (11.0-16.0) % Plt Count (160-400) X10*3/uL MPV (9.4-12.3) fL Immature Gran % (Auto) (0.0-0.4) % Neut % (Auto) (45-73) % Lymph % (Auto) (20-40) % [place] % (Auto) (2-11) % Eos % (Auto) (0-4) % Baso % (Auto) (0-2) % Lymph # (Auto) (1.2-4.9) X10*3/uL [place] # (Auto) (0.1-1.2) X10*3/uL Eos # (Auto) (0.0-0.4) X10*3/uL Baso # (Auto) (0.0-0.2) X10*3/uL Abs Immat Gran (auto) (0.00-0.03) X10*3/uL Absolute Neuts (auto) (2.0-8.3) x10*3/uL Absolute Nucleated RBC (0.0-0.012) X10*3/uL Nucleated RBC % (auto) (0.0-0.2) /100WBC PT 14.9 H (10.0-13.1) SEC INR 1.3 H (0.9-1.1) APTT 33.6 (26.0-36.4) SEC Sodium (135-145) mmol/L Potassium (3.3-5.1) mmol/L Chloride (96-108) mmol/L Carbon Dioxide (22-29) mmol/L Anion Gap (12-20) BUN (9-16) mg/dL Creatinine (0.5-1.4) mg/dL Estim Creat Clear Calc Estimated GFR Random Glucose (60-115) mg/dL Calcium (8.4-10.2) mg/dL Magnesium (1.6-2.6) mg/dL Total Bilirubin (0.0-1.0) mg/dL Direct Bilirubin (0.0-0.5) mg/dL AST (5-31) U/L ALT (0-31) U/L Alkaline Phosphatase (39-117) U/L Troponin I High Sens < 3.5 (<3.5-17.0) ng/L B-Natriuretic Peptide 104 H (<100) pg/mL Total Protein (6.5-8.0) g/dL Albumin (3.5-5.0) g/dL COVID-19 (ROBLES) (Negative) COVID-19 Clin Com Influenza Type A (DUGLAS) Negative (Negative) Influenza Type B (DUGLAS) Negative (Negative) Influenza A & B Note See Note ECG Data Attestation: I personally reviewed and interpreted this ECG as follows: ECG interpretation date: 07/25/22 ECG interpretation time: 15:04 Prior ECG tracings: available for review Interpretation: Normal sinus rhythm, ventricular rate 83 beats per minute, normal OR interval, normal QTC, T-wave inversion in lead III only, no ST segment elevations or depressions. Critical Care Time Critical Care Time Critical Care Time: Yes Total Critical Care Time: 36 Attestation: I have personally provided critical care time exclusive of time spent on separately billable procedures. Time includes review of lab data, radiology results, discussion with consultants, frequent bedside reassessment and monitoring for potential decompensation. Intervention performed as documented. Discharge Plan Discharge Clinical Impression: Acute exacerbation of COPD with asthma Patient Disposition: Admitted As Inpatient
[2022-07-25 14:58] LABS: INTERNATIONAL NORM RATIO 1.3 (0.9-1.1); Prothrombin Time 14.9 SEC (10.0-13.1)
[2022-07-25 15:01] LABS: Partial Thromboplastin Time 33.6 SEC (26.0-36.4)
[2022-07-25] MEDS: Magnesium Sulfate/H2O 2 GM/50 ML PIGGYBACK IV (15:14)
[2022-07-25] MEDS: methylPREDNISolone Sod Succ 125 MG/2 ML VIAL 60 MG IVPUSH ×2 (15:14→22:04)
--- NOTE | 2022-07-25 15:15 | PC.NURSE ---
pt medicated per order
[2022-07-25 15:16] LABS: COVID-19 Test Negative (Negative); IDNOW Serial# 16C4AD1C; Influenza A Negative (Negative); Influenza B2 Negative (Negative)
[2022-07-25] MEDS: Albuterol Sulfate 7.5 MG, Albuterol Sulfate (0.083%) 2.5 MG 10 MG INHALE (15:18)
[2022-07-25 15:19] VITALS: PULSE 82; RESP 17; O2SAT 98
[2022-07-25 15:39] LABS: Alanine Aminotransferase 10 U/L (0-31); Albumin Level 4.4 g/dL (3.5-5.0); Alkaline Phosphatase 87 U/L (39-117); Anion Gap 18 (12-20); Aspartate Amino Transferase 16 U/L (5-31); Bilirubin Direct < 0.2 mg/dL (0.0-0.5); Bilirubin Total 0.2 mg/dL (0.0-1.0); Blood Urea Nitrogen 21 mg/dL (9-16); Calcium 9.6 mg/dL (8.4-10.2); Carbon Dioxide 24 mmol/L (22-29); Chloride 102 mmol/L (96-108); Creatinine Clr Calc Pharmacy 40.5; Estimated Glomerular Filt Rate 39; Glucose Random 145 mg/dL (60-115); Potassium 4.4 mmol/L (3.3-5.1); Sodium 140 mmol/L (135-145); Total Protein 7.6 g/dL (6.5-8.0)
[2022-07-25 15:42] LABS: B Type Natriuretic Peptide 104 pg/mL (<100); Troponin-I High Sensitivity < 3.5 ng/L (<3.5-17.0)
--- NOTE | 2022-07-25 16:54 | PC.NURSE ---
pt ambulated with this nurse to the bathroom, pt became increasingly dyspnic while ambulating and audible in/ex wheezing was heard, pt was given cup for urine sample,but forgot to use it until the end of urinating- not enough to send to lab, engine monitor applied nsr 90s, vss, will continue to monitor
[2022-07-25 16:56] VITALS: BP 142/53; PULSE 94; RESP 18; TEMP 37.1; O2SAT 98
[2022-07-25 17:19] VITALS: PULSE 84; RESP 21; O2SAT 99
[2022-07-25] MEDS: Albuterol/Iprat 2.5/0.5MG 3 ML AMPUL.NEB INHALE (17:19)
[2022-07-25 18:09] LABS: Procalcitonin 0.03 ng/mL
--- NOTE | 2022-07-25 18:09 | PM.IMHP ---
History of Present Illness Date of Service: 07/25/22 Chief Complaint: Shortness of breath 71 yo female with history of Afib on Eliquis, DVTs, CKD, HTN, severe persistent asthma/COPD on chronic prednisone and monthly infusions of Nucala , GERD, hypothyroidism, HLD who presents to the ER for evaluation of worsening SOB, coughing and wheezing x1 week. She has been trying to avoid coming to the hospital all week but today her breathing was worse so she had to call the ambulance. She was 90% on room air per EMS with audible wheezing. She was given Duoneb en route and placed on supplemental oxygen. She denies any fever or chills. She has had some chest tightness, especially when she coughs. She has been nausated but not vomiting, and no diarrhea or abdominal pain. She lives alone and denies sick contacts. Recently started on Nucala by health care administrator; no appreciable change thus far Review of Systems Review of Systems: Denies chest pain Denies shortness of breath Denies nausea vomiting diarrhea Denies fever chills [facility] Medical History Asthma Asthma-COPD overlap syndrome Breast pain, left Chronic allergic rhinitis Dyslipidemia Eosinophilia GERD (gastroesophageal reflux disease) HTN (hypertension) Hypothyroidism Mild recurrent major depression Osteoarthritis of knees, bilateral Osteopenia (~2007) Paroxysmal atrial fibrillation (~01/2021) Pneumonia Polyarthralgia Postmenopausal Steroid dependent Tubular adenoma of colon (~2009) Family History Father Medical history unknown Mother Medical history unknown Daughter Lupus Other Arthritis Surgical History History of colonoscopy History of D&C (~2002) History of knee surgery History of nasal polypectomy (~2007) History of right breast biopsy (~1998) History of shoulder surgery (~2006) History of tubal ligation Social History Household Members: None Housing: House Are you a primary rn homecare to a significant other at home: No Do you presently have visiting nurse or other home services: Yes Alcohol intake: never Patient Tobacco Use Status: Former Tobacco user Tobacco use type: Cigarette e-Cigarette/Vaping Use: Never Used Second Hand Smoke Exposure: No Use of substances other than those prescribed or required for medical reasons: No Advance Directives: No Advance Directives Information Provided: Yes Advance Directives Date on File: 11/10/20 service: No Current occupational status: disabled Cognitive needs: Yes (cane) Hearing needs: No Vision needs: Yes (glasses) Meds Allergies Allergy/AdvReac Type Severity Reaction Status Date / Time sulfamethoxazole Allergy Severe Rash Verified 07/25/22 14:25 [From Bactrim] trimethoprim [From Bactrim] Allergy Severe Rash Verified 07/25/22 14:25 levofloxacin [From LEVAQUIN] Allergy Intermediate RASH SOB, Verified 07/25/22 14:25 DIZZYNESS tramadol AdvReac Severe abdominal Verified 07/25/22 14:25 pain, vomiting acetaminophen AdvReac Intermediate vomitting Verified 07/25/22 14:25 [Tylenol-Codeine #3] atorvastatin [Lipitor] AdvReac Intermediate nausea Verified 07/25/22 14:25 codeine [CODEINE] AdvReac Intermediate NAUSEA & Verified 07/25/22 14:25 VOMITING morphine [MORPHINE] AdvReac Intermediate NAUSEA & Verified 07/25/22 14:25 VOMITING pravastatin AdvReac Intermediate myalgia Verified 07/25/22 14:25 rosuvastatin AdvReac Mild myalgia Verified 07/25/22 14:25 Active Medications: Current Medications Acetaminophen (Acetaminophen 325 Mg Tablet) 650 mg PO Q6H PRN PRN Reason: Pain, Mild (Pain Scale 1-3) Albuterol/Ipratropium (Albuterol/Iprat 2.5/0.5mg 3 Ml Ampul.Neb) 3 ml INHALE QID PRN PRN Reason: Shortness Of Breath Apixaban (Apixaban 5 Mg Tablet) 5 mg PO BID [facility] Aripiprazole (Aripiprazole 5 Mg Tablet) 5 mg PO DAILY [facility] Diltiazem HCl (Diltiazem Hcl Cd 120 Mg Cap.Er.Deg) 120 mg PO DAILY [facility]; Protocol Dronedarone (Dronedarone Hcl 400 Mg Tablet) 400 mg PO BID [facility] Escitalopram Oxalate (Escitalopram Oxalate 10 Mg Tablet) 10 mg PO DAILY [facility] Doxycycline Hyclate 100 mg/ (Sodium Chloride) 250 mls @ 166.67 mls/hr IV ONCE ONE Stop: 07/25/22 18:40 Doxycycline Hyclate 100 mg/ (Sodium Chloride) 250 mls @ 166.67 mls/hr IV ONCE ONE Stop: 07/25/22 19:33 Levothyroxine Sodium (Levothyroxine Sodium 25 Mcg Tablet) 25 mcg PO DAILY@0630 [facility] Loratadine (Loratadine 10 Mg Tablet) 10 mg PO DAILY [facility] Methylprednisolone Sodium Succinate (Methylprednisolone Sod Succ 125 Mg/2 Ml Vial) 60 mg IVPUSH Q6H [facility] Non-Formulary Medication (Umeclidinium [Incruse Ellipta]) 1 inhalation INHALE DAILY [facility] Non-Formulary Medication (Rosuvastatin [Crestor]) 10 mg PO DAILY [facility] Omeprazole (Omeprazole 20 Mg Capsule.Dr) 20 mg PO DAILY@0630 [facility] Pharmacy Consult (Consult Rx Perform Med Rec) 1 each MISCELLANE ONCE PRN PRN Reason: Consult order Sodium Chloride (0.9 % Sodium Chloride Flush 3 Ml Syringe) 3 ml IVFLUSH QSHIFT [facility] Home Medications Medication Instructions Recorded Confirmed Last Taken Type omeprazole 20 mg capsule,delayed 20 mg PO DAILY@0630 02/09/22 07/25/22 Unknown History release escitalopram oxalate 10 mg tablet 10 mg PO DAILY 05/17/22 07/25/22 Unknown History mepolizumab 100 mg/mL subcutaneous 100 mg subcut Q4W 05/17/22 07/25/22 Unknown History syringe (Nucala) aripiprazole 5 mg tablet 5 mg PO DAILY 07/09/22 07/25/22 Unknown History ipratropium 0.5 mg-albuterol 3 mg 3 ml inhalation QID PRN Shortness 07/25/22 07/25/22 Unknown History (2.5 mg base)/3 mL nebulization Of Breath soln levothyroxine 25 mcg tablet 25 mcg PO DAILY@0630 07/25/22 07/25/22 Unknown History umeclidinium 62.5 mcg/actuation 1 inh inhalation DAILY 07/25/22 07/25/22 Unknown History blister powder for inhalation (Incruse Ellipta) Physical Exam Vital Signs and Narrative: Vital Signs: Last Vital Signs Temp 98.7 F 07/25/22 16:56 Pulse 84 07/25/22 17:19 Resp 21 H 07/25/22 17:19 BP 142/53 H 07/25/22 16:56 Pulse Ox 98 07/25/22 16:56 O2 Del Method 07/25/22 16:56 BMI result Body Mass Index 34.9 Const: Other: Awake alert oriented x3 no acute distress. Able to speak in full sentences Chest: Other: No retractions noted Resp: Other: Diminished at bases with dense expiratory wheezes throughout Cardio: Other: No S4; positive S1-S2; no S3 murmurs rubs or gallops GI: Other: Soft nontender nondistended with normoactive bowel sounds Extrem: Other: No edema bilaterally Results Labs CBC and Chem 7: 07/25/22 14:43 07/25/22 14:43 Labs: Laboratory Results - last 24 hr 07/25/22 07/25/22 07/25/22 14:43 14:43 14:43 MCV 85.1 MCH 25.7 L MCHC 30.2 L RDW 15.1 Plt Count 396 MPV 9.1 L Immature Gran % (Auto) 0.1 Neut % (Auto) 75.0 H Lymph % (Auto) 16.8 L [place] % (Auto) 7.6 Eos % (Auto) 0.1 Baso % (Auto) 0.4 Lymph # (Auto) 1.2 [place] # (Auto) 0.5 Eos # (Auto) 0.0 Baso # (Auto) 0.0 Abs Immat Gran (auto) 0.01 Absolute Neuts (auto) 5.4 Absolute Nucleated RBC 0.000 Nucleated RBC % (auto) 0.0 PT INR APTT Anion Gap 18 Estim Creat Clear Calc 40.5 Estimated GFR 39 Random Glucose 145 H Calcium 9.6 Magnesium 2.0 Total Bilirubin 0.2 Direct Bilirubin < 0.2 AST 16 ALT 10 Alkaline Phosphatase 87 Troponin I High Sens B-Natriuretic Peptide Total Protein 7.6 Albumin 4.4 COVID-19 (ROBLES) Negative COVID-19 Clin Com See Note Influenza Type A (DUGLAS) Influenza Type B (DUGLAS) Influenza A & B Note 07/25/22 07/25/22 07/25/22 14:43 14:43 14:43 MCV MCH MCHC RDW Plt Count MPV Immature Gran % (Auto) Neut % (Auto) Lymph % (Auto) [place] % (Auto) Eos % (Auto) Baso % (Auto) Lymph # (Auto) [place] # (Auto) Eos # (Auto) Baso # (Auto) Abs Immat Gran (auto) Absolute Neuts (auto) Absolute Nucleated RBC Nucleated RBC % (auto) PT 14.9 H INR 1.3 H APTT 33.6 Anion Gap Estim Creat Clear Calc Estimated GFR Random Glucose Calcium Magnesium Total Bilirubin Direct Bilirubin AST ALT Alkaline Phosphatase Troponin I High Sens < 3.5 B-Natriuretic Peptide 104 H Total Protein Albumin COVID-19 (ROBLES) COVID-19 Clin Com Influenza Type A (DUGLAS) Negative Influenza Type B (DUGLAS) Negative Influenza A & B Note See Note Imaging Radiologist's Impressions: Impressions Chest X-Ray 07/25/22 14:50 IMPRESSION: No acute cardiopulmonary process. Assessment and Plan (1) Acute exacerbation of COPD with asthma: Status: Acute (2) Paroxysmal atrial fibrillation: Status: Acute (3) CKD (chronic kidney disease) stage 3, GFR 30-59 ml/min: Status: Acute (4) HTN (hypertension): Status: Acute (5) Hypothyroidism: Qualifiers: Hypothyroidism type: unspecified Qualified Code(s): E03.9 - Hypothyroidism, unspecified Status: Acute Plan 1 yo female with history of COPD/asthma overlap syndrome, depression, CKD, HTN, DVTs, Afib on Eliquis who presents to the ER for evaluation of SOB, cough and wheezing x1 week. Initially saturaing 90% on room air with audible wheezing, improved to 98% on room air post treatment. Continues to be extremely coarse and wheezy; fair response to initial therapies 1. Acute exacerbation of COPD with asthma -continue pulse dose methylprednisolone -p.o. doxycycline -DuoNebs q.4 hours while awake; albuterol nebs q.2 hours p.r.n. -titrate O2 as tolerated -pulmonary consult in a.m. 2. Paroxysmal atrial fibrillation -acceptable rate control -continue Cardizem/Eliquis for anticoagulation 3. CKD stage 3 -at baseline -follow renals/divalents 4. Hypertension -acceptable control on current therapies -adjust as indicated 5. Hypothyroidism -levothyroxine as per outpatient dosing Full code Eliquis Patient will require at least 2 midnights going forward for aggressive pulmonary toilet and IV steroids Quality Stroke Does the patient have a stroke diagnosis?: No VTE Prior VTE?: No VTE Risk Level:: Medical - moderate - high VTE Device Contraindication: Treatment Not Indicated VTE Drug Contraindication: N/A - Med Ordered
--- NOTE | 2022-07-25 18:09 | PHA.MEDREC ---
Pharmacy Consult ? Medication Reconciliation Pharmacy has completed the medication reconciliation.sPOKE WITH PATIENT IN THE ED
[2022-07-25 18:33] LABS: Lactic Acid 2.6 mmol/L (0.5-2.0)
[2022-07-25 18:58] LABS: Appearance Urine Clear; Color Urine Yellow; Glucose Urine UA Negative (Negative); Leukocyte Esterase Urine Negative (Negative); Nitrite Urine Negative (Negative); Specific Gravity - Urine 1.025 (1.005-1.025); UMIC TRIGGER UACC YES; Urine Blood Small (1+) (Negative); Urine Ketones Negative (Negative); Urine Protein Trace mg/dL (Neg-Trace)
[2022-07-25] MEDS: Doxycycline Hyclate 100 MG in 0.9 % Sodium Chloride 250 ML 166.67 MG IV (19:00)
[2022-07-25 19:03] VITALS: BP 152/61; PULSE 93; RESP 18; TEMP 37.1; O2SAT 97
--- NOTE | 2022-07-25 19:04 | PC.NURSE ---
patient a&ox3, monitoring manager nsr 70s-80s, vss, urine obtained, bc and lactic obtained, iv antibiotics running per order, call crockett within reach, will continue to monitor
[2022-07-25 19:14] LABS: Bacteria Urine None Seen (None Seen); Hyaline Casts Urine 0-2 /LPF (0-2); Squamous Epithelial Cell Urine 0-2 /HPF (0-2); WBC Urine 0-5 /HPF (0-5)
[2022-07-25 20:13] LABS: Reflex Lactate? Lactic Acid Added
[2022-07-25 20:20] VITALS: BP 139/65; PULSE 89; RESP 18; O2SAT 98
--- NOTE | 2022-07-25 20:22 | PC.NURSE ---
patient a&ox3, recycling specialist nsr 80s, vss, phlebotomy at bedside to obtain labs, call crockett within reach, will continue to monitor
--- NOTE | 2022-07-25 21:00 | PC.NURSE ---
called pharmacy for missing med
[2022-07-25] MEDS: Apixaban 5 MG TABLET PO (22:04)
[2022-07-25] MEDS: Lactated Ringers 1,000 ML 100 ML IVCONT (22:04)
[2022-07-25] MEDS: Dronedarone HCl 400 MG TABLET PO (22:04)
--- NOTE | 2022-07-25 22:19 | PC.NURSE ---
patient medicated per order, rt called for updraft, pt ambulated with stby assist to bathroom, pt changed to inpt bed for comfort, will continue to monitor.
[2022-07-25 22:27] LABS: Reflex Lactate? 2 Y
[2022-07-25 23:18] LABS: ~Lactic Acid-LAB USE ONLY 6.1 mmol/L (0.5-2.0)
--- NOTE | 2022-07-26 00:30 | PC.NURSE ---
pt sleeping, RR even and unlabored, LR running at 100ml/hr.
[2022-07-26 00:34] VITALS: BP 132/52; PULSE 91; RESP 15; TEMP 36.6; O2SAT 97
[2022-07-26] MEDS: methylPREDNISolone Sod Succ 125 MG/2 ML VIAL 60 MG IVPUSH ×4 (03:48→21:51)
--- NOTE | 2022-07-26 03:51 | PC.NURSE ---
pt a&ox3, medicated per provider order, pt ambulated independently to bathroom, LR reconnected and running at 100ml/hr.
[2022-07-26 04:29] VITALS: BP 134/58; PULSE 84; RESP 15; TEMP 36.7; O2SAT 97
[2022-07-26 05:57] VITALS: BP 153/58; PULSE 77; RESP 13; TEMP 36.6; O2SAT 97
[2022-07-26] MEDS: Omeprazole 20 MG CAPSULE.DR PO (06:41)
[2022-07-26] MEDS: Levothyroxine Sodium 25 MCG TABLET PO (06:41)
--- NOTE | 2022-07-26 06:42 | PC.NURSE ---
Took over care at 4:15am. pt sleeping no sign of distress. Pt able to speak in full sentence, no sob or chest pain. medicated per Dec.
[2022-07-26] MEDS: Loratadine 10 MG TABLET PO (10:21)
[2022-07-26] MEDS: Escitalopram Oxalate 10 MG TABLET PO (10:21)
[2022-07-26] MEDS: dilTIAZem HCL CD 120 MG CAP.ER.DEG PO (10:21)
[2022-07-26] MEDS: Apixaban 5 MG TABLET PO ×2 (10:21→21:51)
[2022-07-26 14:46] VITALS: BP 180/79; PULSE 83; RESP 18; O2SAT 98
--- NOTE | 2022-07-26 15:12 | P.PNIM_ITS ---
Subjective Subjective Date of Service: 07/26/22 Interval History: Minimal improvement in breathing. No acute issues otherwise Review of Systems Denies chest pain Denies shortness of breath Denies nausea vomiting diarrhea Denies fever chills Physical Exam Vital Signs: Vital Signs: Last Vital Signs Temp 97.8 F 07/26/22 05:57 Pulse 83 07/26/22 14:46 Resp 18 07/26/22 14:46 BP 180/79 H 07/26/22 14:46 Pulse Ox 98 07/26/22 14:46 O2 Del Method 07/26/22 14:46 BMI result Body Mass Index 34.9 Const: Other: Awake alert oriented x3 no acute distress. Able to speak in full sentences Chest: Other: No retractions noted Resp: Other: Diminished at bases with dense expiratory wheezes throughout Cardio: Other: No S4; positive S1-S2; no S3 murmurs rubs or gallops GI: Other: Soft nontender nondistended with normoactive bowel sounds Extrem: Other: No edema bilaterally Objective Data Active Medications Acetaminophen (Acetaminophen 325 Mg Tablet) 650 mg PO Q6H PRN PRN Reason: Pain, Mild (Pain Scale 1-3) Albuterol/Ipratropium (Albuterol/Iprat 2.5/0.5mg 3 Ml Ampul.Neb) 3 ml INHALE QID PRN PRN Reason: Shortness Of Breath Apixaban (Apixaban 5 Mg Tablet) 5 mg PO BID [facility] Last Admin: 07/26/22 10:21 Dose: 5 mg Documented By: MAC Aripiprazole (Aripiprazole 5 Mg Tablet) 5 mg PO DAILY [facility] Last Admin: 07/26/22 14:08 Dose: Not Given Documented By: MAC Non-Admin Reason: Med Not Available Diltiazem HCl (Diltiazem Hcl Cd 120 Mg Cap.Er.Deg) 120 mg PO DAILY [facility]; Protocol Last Admin: 07/26/22 10:21 Dose: 120 mg Documented By: MAC Dronedarone (Dronedarone Hcl 400 Mg Tablet) 400 mg PO BID [facility] Last Admin: 07/26/22 14:08 Dose: Not Given Documented By: MAC Non-Admin Reason: Med Not Available Escitalopram Oxalate (Escitalopram Oxalate 10 Mg Tablet) 10 mg PO DAILY [facility] Last Admin: 07/26/22 10:21 Dose: 10 mg Documented By: MAC Lactated Ringer's (Lr) 1,000 mls @ 100 mls/hr IVCONT .Q10H [facility] Last Admin: 07/25/22 22:04 Dose: 100 mls/hr Documented By: JAYME Levothyroxine Sodium (Levothyroxine Sodium 25 Mcg Tablet) 25 mcg PO DAILY@0630 [facility] Last Admin: 07/26/22 06:41 Dose: 25 mcg Documented By: KELSEY Loratadine (Loratadine 10 Mg Tablet) 10 mg PO DAILY [facility] Last Admin: 07/26/22 10:21 Dose: 10 mg Documented By: MAC Methylprednisolone Sodium Succinate (Methylprednisolone Sod Succ 125 Mg/2 Ml Vial) 60 mg IVPUSH Q6H [facility] Last Admin: 07/26/22 10:20 Dose: 60 mg Documented By: MAC Non-Formulary Medication (Umeclidinium [Incruse Ellipta]) 1 inhalation INHALE DAILY [facility] Non-Formulary Medication (Rosuvastatin [Crestor]) 10 mg PO DAILY [facility] Omeprazole (Omeprazole 20 Mg Capsule.Dr) 20 mg PO DAILY@0630 [facility] Last Admin: 07/26/22 06:41 Dose: 20 mg Documented By: KELSEY Pharmacy Consult (Consult Rx Perform Med Rec) 1 each MISCELLANE ONCE PRN PRN Reason: Consult order Sodium Chloride (0.9 % Sodium Chloride Flush 3 Ml Syringe) 3 ml IVFLUSH QSHIFT [facility] Last Admin: 07/26/22 10:24 Dose: Not Given Documented By: MAC Non-Admin Reason: IV Running Labs CBC & Chem 7: 07/25/22 14:43 07/25/22 14:43 Labs: Laboratory Results - last 24 hr 07/25/22 07/25/22 07/25/22 14:43 14:43 14:43 Anion Gap 18 Estim Creat Clear Calc 40.5 Estimated GFR 39 Random Glucose 145 H Lactic Acid Lactic Acid F/U @ 2Hr Lactic Acid F/U @ 4Hr Calcium 9.6 Magnesium 2.0 Total Bilirubin 0.2 Direct Bilirubin < 0.2 AST 16 ALT 10 Alkaline Phosphatase 87 Troponin I High Sens < 3.5 B-Natriuretic Peptide 104 H Total Protein 7.6 Albumin 4.4 Procalcitonin Urine Color Urine Appearance Urine pH Ur Specific [place] Urine Protein Urine Glucose (UA) Urine Ketones Urine Blood Urine Nitrite Ur Leukocyte Esterase Urine RBC Urine WBC Ur Squamous Epith Cells Urine Bacteria Hyaline Casts COVID-19 (ROBLES) Negative COVID-19 Clin Com See Note Influenza Type A (DUGLAS) Influenza Type B (DUGLAS) Influenza A & B Note 07/25/22 07/25/22 07/25/22 14:43 14:43 18:09 Anion Gap Estim Creat Clear Calc Estimated GFR Random Glucose Lactic Acid 2.6 H* Lactic Acid F/U @ 2Hr Lactic Acid F/U @ 4Hr Calcium Magnesium Total Bilirubin Direct Bilirubin AST ALT Alkaline Phosphatase Troponin I High Sens B-Natriuretic Peptide Total Protein Albumin Procalcitonin 0.03 Urine Color Urine Appearance Urine pH Ur Specific [place] Urine Protein Urine Glucose (UA) Urine Ketones Urine Blood Urine Nitrite Ur Leukocyte Esterase Urine RBC Urine WBC Ur Squamous Epith Cells Urine Bacteria Hyaline Casts COVID-19 (ROBLES) COVID-19 [employer] Com Influenza Type A (DUGLAS) Negative Influenza Type B (DUGLAS) Negative Influenza A & B Note See Note 07/25/22 07/25/22 07/25/22 18:47 20:24 22:35 Anion Gap Estim Creat Clear Calc Estimated GFR Random Glucose Lactic Acid Lactic Acid F/U @ 2Hr 7.0 H* Lactic Acid F/U @ 4Hr 6.1 H* Calcium Magnesium Total Bilirubin Direct Bilirubin AST ALT Alkaline Phosphatase Troponin I High Sens B-Natriuretic Peptide Total Protein Albumin Procalcitonin Urine Color Yellow Urine Appearance Clear Urine pH 5.0 Ur Specific [place] 1.025 Urine Protein Trace Urine Glucose (UA) Negative Urine Ketones Negative Urine Blood Small (1+) H Urine Nitrite Negative Ur Leukocyte Esterase Negative Urine RBC 3-5 H Urine WBC 0-5 Ur Squamous Epith Cells 0-2 Urine Bacteria None Seen Hyaline Casts 0-2 COVID-19 (ROBLES) COVID-19 [employer] Com Influenza Type A (DUGLAS) Influenza Type B (DUGLAS) Influenza A & B Note Assessment and Plan (1) Acute exacerbation of COPD with asthma: Status: Acute (2) Paroxysmal atrial fibrillation: Status: Acute Plan 71 yo female with history of COPD/asthma overlap syndrome, depression, CKD, HTN, DVTs, Afib on Eliquis who presents to the ER for evaluation of SOB, cough and wheezing x1 week. Initially saturaing 90% on room air with audible wheezing, improved to 98% on room air post treatment. Continues to be extremely coarse and wheezy; fair response to initial therapies 1. Acute exacerbation of COPD with asthma -continue pulse dose methylprednisolone -p.o. doxycycline -DuoNebs q.4 hours while awake; albuterol nebs q.2 hours p.r.n. -titrate O2 as tolerated -pulmonary consult 2. Paroxysmal atrial fibrillation -acceptable rate control -continue Cardizem/Eliquis for anticoagulation 3. CKD stage 3 -at baseline -follow renals/divalents 4. Hypertension -acceptable control on current therapies -adjust as indicated 5. Hypothyroidism -levothyroxine as per outpatient dosing Full code Eliquis Patient will require hospitalization for aggressive pulmonary toilet and IV steroids Quality Stroke Does the patient have a stroke diagnosis?: No VTE Prior VTE?: No VTE Risk Level:: Medical - moderate - high VTE Device Contraindication: Treatment Not Indicated VTE Drug Contraindication: N/A - Med Ordered
[2022-07-26] MEDS: Lactated Ringers 1,000 ML 100 ML IVCONT ×2 (15:23→18:51)
[2022-07-26 20:39] VITALS: BP 155/70; PULSE 74; RESP 17; TEMP 37.1; O2SAT 96
--- NOTE | 2022-07-26 21:56 | PC.NURSE ---
Pt meds were administered, Pt reports no pain. IVF are running, Pt has audible clear lung sound. No edema on her extremities. Will continue to monitor.
[2022-07-26] MEDS: Dronedarone HCl 400 MG TABLET PO (22:56)
--- NOTE | 2022-07-26 22:57 | PC.NURSE ---
nurse received the Multaq med from the pharmacist just now.
[2022-07-27 00:27] VITALS: BP 149/62; PULSE 79; RESP 19; TEMP 36.6; O2SAT 97
--- NOTE | 2022-07-27 01:48 | PC.NURSE ---
Pt requested to have IV fluids paused during the night. Pt stated that it's irritating her hand and she has to keep getting up to use the bathroom. IV fluids paused at this time.
[2022-07-27] MEDS: methylPREDNISolone Sod Succ 125 MG/2 ML VIAL 60 MG IVPUSH ×2 (03:25→07:52)
--- NOTE | 2022-07-27 03:29 | PC.NURSE ---
Pt refused IVF d/t it doesnt let her sleep. She wants to continue IVF in the morning.
[2022-07-27] MEDS: Levothyroxine Sodium 25 MCG TABLET PO (06:00)
[2022-07-27] MEDS: Omeprazole 20 MG CAPSULE.DR PO (06:00)
[2022-07-27] MEDS: Loratadine 10 MG TABLET PO (07:53)
[2022-07-27] MEDS: Apixaban 5 MG TABLET PO (07:53)
[2022-07-27] MEDS: dilTIAZem HCL CD 120 MG CAP.ER.DEG PO (07:54)
[2022-07-27] MEDS: ARIPiprazole 5 MG TABLET PO (07:54)
[2022-07-27] MEDS: Dronedarone HCl 400 MG TABLET PO (07:54)
[2022-07-27] MEDS: Escitalopram Oxalate 10 MG TABLET PO (07:55)
[2022-07-27] MEDS: 0.9 % Sodium Chloride Flush 3 ML SYRINGE IVFLUSH (07:59)
[2022-07-27 08:39] VITALS: BP 164/72; PULSE 75; RESP 16; TEMP 37.1; O2SAT 97
--- NOTE | 2022-07-27 10:21 | MHC.CM.PN ---
IMM 07/27/22, EMR REVIEWED, PT ADMITTED W/ASTHMA EXACERBATION, CM MET W/PT VIA TECH INTERN, PT REPORTS SHE LIVES ALONE, HAS A WEEKLY NURSE FROM [facility] WHO ORGANIZES HER MEDS, PT NO LONGER HAS [facility]NER D/T DECLINING AFTER A LEAF BINNER WHO WAS COVID + ATTEMPTED TO SEE HER, PT REPORTS HER BROTHER AND SISTER CHECK ON HER AND ASSIST NEEDED, PT VERIFIES PCP IS SIMEON GARDNER, DENIES BEING VACCINATED FOR COVID AND REPORTS [facility] LEONARD IS NO LONGER HER HCP AND DECLINES TO COMPLETE A NEW ONE SHE DOES NOT KNOW WHO SHE WOULD CHOOSE. ANTIC D/C HOME LATER TODAY W/NO NEW SERVICES AND [facility] SHUTTLE
--- NOTE | 2022-07-27 11:18 | P.DS_ITS ---
DS: Providers Provider Date of Service: 07/27/22 Date of admission: 07/25/22 17:54 Date of discharge: 07/27/22 Primary care physician: Unknown Physician Consults: 07/26/22 15:02 Consult to Pulmonology Stat Consulting Provider: Guzman Pinon Reason for consultation: Exacerbation Has provider been notified: No DS: Diagnosis Discharge Diagnosis (1) Acute exacerbation of COPD with asthma: Status: Acute (2) Paroxysmal atrial fibrillation: Status: Acute DS: Summary Hospital Course Hospital Course: 71 yo female with history of Afib on Eliquis, DVTs, CKD, HTN, severe persistent asthma/COPD on chronic prednisone and monthly infusions of Nucala , GERD, hypothyroidism, HLD who presents to the ER for evaluation of worsening SOB, coughing and wheezing x1 week. She has been trying to avoid coming to the hospital all week but today her breathing was worse so she had to call the ambulance. She was 90% on room air per EMS with audible wheezing. She was given Duoneb en route and placed on supplemental oxygen. She denies any fever or chills. She has had some chest tightness, especially when she coughs. She has been nausated but not vomiting, and no diarrhea or abdominal pain. She lives alone and denies sick contacts.? Recently started on Nucala by well service floorperson; no appreciable change thus far Hopsital Course Patient admitted to general medical floor and given IV pulse dose steroids as well as scheduled updrafts. Over the course of next 48 hours she improved dramatically. Case was discussed with her well service floorperson Dr. Pinon who agrees with the plan of care as such; discharged home resume all therapies complete a prednisone taper and then restart prednisone 5 mg daily. She will be discharged to do same Time Spent with Patient Time attestation: Total time spent providing and/or coordinating discharge services: Discharge coordination time: Greater than 30 minutes Quality: Safe Use of Opioids Does Pt have an Active Cancer Diagnosis on the Problem List?: No Quality: Stroke Does the patient have a stroke diagnosis?: No Physical Exam Vital Signs: Vital Signs: Last Vital Signs Temp 98.7 F 07/27/22 08:39 Pulse 75 07/27/22 08:39 Resp 16 07/27/22 08:39 BP 164/72 H 07/27/22 08:39 Pulse Ox 97 07/27/22 08:39 O2 Del Method 07/27/22 08:39 BMI result Body Mass Index 34.9 Const: Other: Awake alert oriented x3 no acute distress. Able to speak in full sentences Chest: Other: No retractions noted Resp: Other: Diminished at bases with dense expiratory wheezes throughout Cardio: Other: No S4; positive S1-S2; no S3 murmurs rubs or gallops GI: Other: Soft nontender nondistended with normoactive bowel sounds Extrem: Other: No edema bilaterally DS: Data Data Completed and Pending Labs on day of discharge: Preliminary micro results at discharge 07/25/22 18:36 Blood Culture - Preliminary Blood - Venous No growth after 24 hours. 07/25/22 18:09 Blood Culture - Preliminary Blood - Venous No growth after 24 hours. Discharge Plan Discharge Anticipated Discharge Date/Time: 07/27/22 11:13 Patient Disposition: Home Health Service Discharge Diagnosis: Acute respiratory failure secondary to asthma exacerbation Referrals: Physician,Unknown J [Primary Care Provider] - 1 Week Discharge Medications: Continued loratadine 10 mg tablet 10 mg PO DAILY 90 Days Qty: 90 3RF Multaq 400 mg tablet 400 mg PO BID 90 Days Qty: 180 2RF diltiazem HCl [Cardizem CD] 120 mg capsule,extended release 24hr 120 mg PO DAILY Qty: 30 5RF rosuvastatin [Crestor] 10 mg tablet 10 mg PO DAILY 90 Days Qty: 90 1RF Eliquis 5 mg tablet 5 mg PO BID Qty: 60 5RF Incruse Ellipta 62.5 mcg/actuation blister with device 1 inh inhalation DAILY levothyroxine 25 mcg tablet 25 mcg PO DAILY@0630 ipratropium-albuterol 0.5 mg-3 mg(2.5 mg base)/3 mL solution for nebulization 3 ml inhalation QID PRN (Reason: Shortness Of Breath) omeprazole 20 mg capsule,delayed release(DR/EC) 20 mg PO DAILY@0630 aripiprazole 5 mg tablet 5 mg PO DAILY albuterol sulfate 90 mcg/actuation HFA aerosol inhaler 2 inh inhalation Q6H PRN (Reason: shortness of breath or wheezing) 30 Days Qty: 18 12RF Nucala 100 mg/mL syringe 100 mg subcut Q4W escitalopram oxalate 10 mg tablet 10 mg PO DAILY Held prednisone 5 mg tablet 5 mg PO DAILY Qty: 30 0RF Hold Instructions: resume after completion of prednisone taper Discharge Orders: Discharge Order (Routine); Ordered 07/27/22 Ordered By: Nathan Noriega Diet: Advance to usual diet Activity on Discharge: As tolerated Stand Alone Forms: Patient Portal Discharge page Care Plan Goals: Complete prednisone taper as ordered. After completion of the taper resume your prednisone 5 mg daily Health Concerns: Follow-up with your well service floorperson and PCP within 2 weeks/or as scheduled Plan of Treatment: Resume all other pre-hospital meds Assessment: See discharge summary
--- NOTE | 2022-07-28 16:19 | MHC.CM.PN ---
POST D/C NOTE, PT'S [facility] LIAISON CONTACTED CM D/T PT NOT RECEIVING PREDNISONE TAPER, CM SPOKE W/HOSPITALIST WHO WILL SEND SCRIPT TO PHARMACY ON FILE, PHARMACY VERIFIED W/PT AND PT REPORTS SISTER WILL SAND SIFTER SCRIPT TOMORROW AM AND SHE WILL START TAPER, [facility] LIAISON AWARE.
== END 2022-07-27 12:38 | disposition home health service (06) | DRG 190 ==
LOC: HO.ED 17:19 → HO.EDOVER 18:07
PROVIDERS: Physician Assistant; Admitting Provider Hospitalist; Emergency Provider Emergency Medicine; PCP Internal Medicine; Visit Provider Hospitalist
DX: J44.1 Chronic obstructive pulmonary disease with (acute) exacerbation (principal); J96.01 Acute respiratory failure with hypoxia; F33.0 Major depressive disorder, recurrent, mild; J45.51 Severe persistent asthma with (acute) exacerbation; I12.9 Hypertensive chronic kidney disease with stage 1 through stage 4 chronic kidney disease, or unspecified chronic kidney disease; E03.9 Hypothyroidism, unspecified; N18.30 Chronic kidney disease, stage 3 unspecified; I48.0 Paroxysmal atrial fibrillation; K21.9 Gastro-esophageal reflux disease without esophagitis; Z20.822 Contact with and (suspected) exposure to COVID-19; Z87.891 Personal history of nicotine dependence; Z86.718 Personal history of other venous thrombosis and embolism; Z88.5 Allergy status to narcotic agent; Z79.01 Long term (current) use of anticoagulants; Z79.52 Long term (current) use of systemic steroids; Z79.890 Hormone replacement therapy; Z79.899 Other long term (current) drug therapy
CPT/HCPCS: 36415; 71045; 80048; 80076; 81001; 83605; 83735; 83880; 84145; 84484; 85025; 85610; 85730; 87040; 87502; 87635; 93005; 94640; 99285; J2930; J3475

== ENCOUNTER 2022-08-18 09:36 | Outpatient (REF) | payer OTHER, SELFPAY | END 2022-08-18 09:37 | disposition home or self-care (01) | LOC: HO.MDS 09:36 | PROVIDERS: Visit Provider Hospitalist | DX: J45.50 Severe persistent asthma, uncomplicated (principal); J82.83 Eosinophilic asthma; J42 Unspecified chronic bronchitis; J30.9 Allergic rhinitis, unspecified; I48.0 Paroxysmal atrial fibrillation; F33.0 Major depressive disorder, recurrent, mild; Z79.52 Long term (current) use of systemic steroids | CPT/HCPCS: 96372; 99212; J2182 ==

== ENCOUNTER → 2022-08-24 12:16 | Outpatient (BNVA) | payer OTHER, SELFPAY | PROVIDERS: PCP Internal Medicine; Referring Provider Internal Medicine; Visit Provider Internal Medicine Cardiovascular Disease | DX: I48.0 Paroxysmal atrial fibrillation (principal); I10 Essential (primary) hypertension | CPT/HCPCS: 99212 ==

== ENCOUNTER 2022-09-08 13:02 | Emergency (ER) | payer OTHER, SELFPAY ==
--- NOTE | ~2022-09-08 | CT_ITS ---
EXAMINATION: CT ABDOMEN AND PELVIS WITHOUT CONTRAST CLINICAL INFORMATION: Upper abdominal pain and right upper quadrant pain COMPARISON: 02/02/2022 TECHNIQUE: Multidetector volumetric imaging was performed from the superior aspect of the liver through the pubic symphysis. Sagittal and coronal reformatted images were obtained on the technologist's workstation. This CT examination was performed using dose optimization techniques as appropriate, variously including the following: *Automated exposure control *Adjustment of mA and/or kV according to patient size (this includes techniques or standardized protocols for targeted exams where dose is matched to indication/reason for exam; i.e. extremities or head) *Use of iterative reconstruction technique DLP: 741 mGy-cm FINDINGS: LUNG BASES: The visualized lung bases are unremarkable. LIVER, GALLBLADDER, AND BILIARY TREE: Unenhanced liver is grossly normal. No hepatic mass. No biliary dilatation. The gallbladder is unremarkable with no evidence of radiopaque gallstones, gallbladder wall thickening, or obvious pericholecystic inflammatory changes. PANCREAS: Unremarkable. SPLEEN: Unremarkable. ADRENAL GLANDS: Unremarkable. KIDNEYS AND URETERS: No nephrolithiasis or hydronephrosis or perinephric collection. Posterior right renal cyst incompletely evaluated due to noncontrast study. BLADDER: Unremarkable. GASTROINTESTINAL TRACT: No bowel obstruction or right or left lower quadrant inflammatory change. Appendix unremarkable. Small hiatal hernia. ABDOMINAL WALL: Small fat-containing umbilical hernia but bowel does not participate. LYMPH NODES: Normal. VASCULAR: There is an accessory retroaortic left renal vein. The aorta is atherosclerotic but nonaneurysmal. There is a diminutive IVC with a prominent azygos vein. PELVIC VISCERA: Punctate calcified fibroids in the uterus no change. OSSEOUS STRUCTURES: Degenerative change lower lumbar spine but no fracture. CT/CT abdomen pelvis wo IV con IMPRESSION: No acute findings.
[2022-09-08 13:13] VITALS: BP 153/78; PULSE 96; O2SAT 96
[2022-09-08 13:15] VITALS: BP 156/78; PULSE 94; RESP 17; TEMP 36.6; O2SAT 98; BMI 30.4
[2022-09-08 14:31] VITALS: BP 166/85; PULSE 93; RESP 20; TEMP 36.9; O2SAT 97
--- NOTE | 2022-09-08 15:33 | ECG_ITS ---
Test Reason : cp abd pain Blood Pressure : / mmHG Vent. Rate : 087 BPM Atrial Rate : 087 BPM P-R Int : 140 ms QRS Dur : 078 ms QT Int : 332 ms P-R-T Axes : 039 -16 022 degrees QTc Int : 399 ms Normal sinus rhythm Minimal voltage criteria for LVH, may be normal variant ( R in aVL ) Borderline ECG When compared with ECG of 25-JUL-2022 14:34, No significant change was found Referred By: Justino Cardona Electronically Signed By:GIFTY NEAL MD
[2022-09-08 16:44] LABS: MANUAL DIFF FLAG NO
[2022-09-08 16:46] LABS: Basophils Percent Auto 0.4 % (0-2); Hematocrit 39.2 % (37.0-47.0); Hemoglobin 11.9 g/dl (12.0-16.0); Imm Gran Abs Auto 0.01 X10*3/uL (0.00-0.03); Imm Gran Pct Auto 0.2 % (0.0-0.4); Lymphocytes Percent Auto 18.4 % (20-40); Mean Corpuscular HGB Conc 30.4 g/dl (31.0-35.0); Mean Corpuscular Hemoglobin 25.5 pg (27.0-33.0); Mean Corpuscular Volume 84.1 fL (80.0-98.0); Monocytes Absolute Auto 0.7 X10*3/uL (0.1-1.2); Neutrophils Absolute Auto 3.5 x10*3/uL (2.0-8.3); Platelet Count 363 X10*3/uL (160-400); Red Blood Count 4.66 X10*6/uL (4.20-5.50); Red Cell Distribution Width 15.8 % (11.0-16.0); White Blood Count 5.2 X10*3/uL (4.8-10.8)
[2022-09-08 16:47] LABS: Appearance Urine Clear; Color Urine Yellow; Glucose Urine UA Negative (Negative); Leukocyte Esterase Urine Negative (Negative); Nitrite Urine Negative (Negative); PH 5.5 (5.0-9.0); Specific Gravity - Urine 1.015 (1.005-1.025); UMIC TRIGGER UACC YES; Urine Blood Small (1+) (Negative); Urine Ketones Trace mg/dL (Negative); Urine Protein 30 (1+) mg/dL (Neg-Trace)
[2022-09-08 16:55] LABS: Partial Thromboplastin Time 32.6 SEC (26.0-36.4)
[2022-09-08 16:59] LABS: Bacteria Urine None Seen (None Seen); Hyaline Casts Urine 0-2 /LPF (0-2); Squamous Epithelial Cell Urine 0-2 /HPF (0-2); WBC Urine 0-5 /HPF (0-5)
[2022-09-08 17:02] LABS: COVID-19 Test Positive (Negative); IDNOW Serial# 16C4AD1C
[2022-09-08 17:05] LABS: Troponin-I High Sensitivity 6.2 ng/L (<3.5-17.0)
[2022-09-08 17:06] LABS: Alanine Aminotransferase 12 U/L (0-31); Albumin Level 4.2 g/dL (3.5-5.0); Alkaline Phosphatase 75 U/L (39-117); Anion Gap 14 (12-20); Aspartate Amino Transferase 23 U/L (5-31); Bilirubin Total 0.3 mg/dL (0.0-1.0); Blood Urea Nitrogen 16 mg/dL (9-16); Calcium 9.3 mg/dL (8.4-10.2); Carbon Dioxide 27 mmol/L (22-29); Chloride 106 mmol/L (96-108); Estimated Glomerular Filt Rate 38; Glucose Random 90 mg/dL (60-115); Lipase 20 U/L (8-78); Potassium 5.1 mmol/L (3.3-5.1); Sodium 142 mmol/L (135-145); Total Protein 7.2 g/dL (6.5-8.0)
[2022-09-08] MEDS: 0.9 % Sodium Chloride 1,000 ML 999 ML IV (17:06)
[2022-09-08] MEDS: ondansetron HCL 4 MG/2 ML VIAL IVPUSH (17:06)
[2022-09-08] MEDS: Ketorolac Tromethamine 15 MG/ML VIAL IVPUSH (17:06)
[2022-09-08 17:08] LABS: IDNOW Serial# BCCEAD1C; Influenza A Negative (Negative); Influenza B2 Negative (Negative)
--- NOTE | 2022-09-08 17:12 | PC.NURSE ---
pt a&ox3, labs drawn, urine obtained, 22G IV placed left wrist, medicated per provider order, ivf running, pt reporting 6/10 abd pain. pt reporting reduction in nausea.
--- NOTE | 2022-09-08 18:21 | ED.ABDPAIN ---
HPI - Abdominal Pain General Chief Complaint: Nausea/Vomiting/Diarrhea Stated Complaint: N/V/D x2days per EMS Time Seen by Provider: 09/08/22 14:31 Source: patient Mode of arrival: ambulatory Limitations: language barrier (Patient speaks some Burmese, Mongolian is a 1st language, investigative research specialist used) History of Present Illness HPI narrative: 71-year-old female who presents emergency department for evaluation nausea, vomiting, body aches, chills, abdominal pain weakness x2 days. Patient states that yesterday at around 17:00 she developed whole body pain. She states she felt hot and cold and had shaking chills. She states that she ate some [place] fried chicken at 14:00 hours in believes that this is what made her ill. She does complain of abdominal pain but runs or hand diffusely over her entire abdomen when asked to localize the pain. She states the pain is a constant, dull ache. She denied any diarrhea. The patient has not been vaccinated against COVID-19. She states that she isolates at home but she is taking care of her 8-year-old grandson and she states that her sisters visit often. Related Data Home Medications Medication Instructions Recorded Confirmed omeprazole 20 mg capsule,delayed 20 mg PO DAILY@0630 02/09/22 08/24/22 release escitalopram oxalate 10 mg tablet 10 mg PO DAILY 05/17/22 08/24/22 aripiprazole 5 mg tablet 5 mg PO DAILY 07/09/22 08/24/22 ipratropium 0.5 mg-albuterol 3 mg 3 ml inhalation QID PRN Shortness 07/25/22 08/24/22 (2.5 mg base)/3 mL nebulization Of Breath soln levothyroxine 25 mcg tablet 25 mcg PO DAILY@0630 07/25/22 08/24/22 umeclidinium 62.5 mcg/actuation 1 inh inhalation DAILY 07/25/22 08/24/22 blister powder for inhalation (Incruse Ellipta) Previous Rx's Medication Instructions Recorded dronedarone 400 mg tablet (Multaq) 400 mg PO BID 90 days #180 tabs 01/21/22 diltiazem HCl 120 mg 120 mg PO DAILY #30 caps 03/15/22 capsule,extended release 24 hr (Cardizem CD) rosuvastatin 10 mg tablet (Crestor) 10 mg PO DAILY 90 days #90 tabs 05/22/22 apixaban 5 mg tablet (Eliquis) 5 mg PO BID #60 tabs 07/07/22 albuterol sulfate 90 mcg/actuation 2 inh inhalation Q6H PRN shortness 07/09/22 aerosol inhaler of breath or wheezing 30 days #18 grams prednisone 5 mg tablet 5 mg PO DAILY #30 tabs 07/28/22 loratadine 10 mg tablet 10 mg PO DAILY 90 days #90 tabs 09/04/22 mepolizumab 100 mg/mL subcutaneous 100 mg subcut Q4W #1 mL 09/06/22 syringe (Nucala) ondansetron 4 mg disintegrating 4 mg PO Q6-8H PRN nausea and 09/08/22 tablet vomiting #14 tabs Allergies Allergy/AdvReac Type Severity Reaction Status Date / Time sulfamethoxazole Allergy Severe Rash Verified 08/18/22 09:09 [From Bactrim] trimethoprim [From Bactrim] Allergy Severe Rash Verified 08/18/22 09:09 levofloxacin [From LEVAQUIN] Allergy Intermediate RASH SOB, Verified 08/18/22 09:09 DIZZYNESS tramadol AdvReac Severe abdominal Verified 08/18/22 09:09 pain, vomiting acetaminophen AdvReac Intermediate vomitting Verified 08/18/22 09:09 [Tylenol-Codeine #3] atorvastatin [Lipitor] AdvReac Intermediate nausea Verified 08/18/22 09:09 codeine [CODEINE] AdvReac Intermediate NAUSEA & Verified 08/18/22 09:09 VOMITING morphine [MORPHINE] AdvReac Intermediate NAUSEA & Verified 08/18/22 09:09 VOMITING pravastatin AdvReac Intermediate myalgia Verified 08/18/22 09:09 rosuvastatin AdvReac Mild myalgia Verified 08/18/22 09:09 Review of Systems Review of Systems Yes all other systems are reviewed and are negative [facility] Past Medical History [facility] Narrative: Social history: She denies tobacco, alcohol and drug use. Medical History Asthma Asthma-COPD overlap syndrome Breast pain, left Chronic allergic rhinitis Dyslipidemia Eosinophilia GERD (gastroesophageal reflux disease) HTN (hypertension) Hypothyroidism Mild recurrent major depression Osteoarthritis of knees, bilateral Osteopenia (~2007) Paroxysmal atrial fibrillation (~01/2021) Pneumonia Polyarthralgia Postmenopausal Steroid dependent Tubular adenoma of colon (~2009) Surgical History History of colonoscopy History of D&C (~2002) History of knee surgery History of nasal polypectomy (~2007) History of right breast biopsy (~1998) History of shoulder surgery (~2006) History of tubal ligation Family History Family History Father Medical history unknown Mother Medical history unknown Daughter Lupus Other Arthritis Social History Social History Household Members: None Housing: House Are you a primary child care coordinator to a significant other at home: No Do you presently have visiting nurse or other home services: Yes Alcohol intake: never Patient Tobacco Use Status: Former Tobacco user Tobacco use type: Cigarette e-Cigarette/Vaping Use: Never Used Second Hand Smoke Exposure: No Advance Directives: No Advance Directives Date on File: 11/10/20 service: No Current occupational status: disabled Cognitive needs: Yes (cane) Hearing needs: No Vision needs: Yes (glasses) Physical Exam ED Vital Signs: Vital Signs - 24 hr 09/08/22 13:15 09/08/22 14:31 Temperature 98 F 98.5 F Pulse Rate 94 93 Respiratory Rate 17 20 Blood Pressure 156/78 H 166/85 H Pulse Oximetry 98 97 Oxygen Delivery Method Room Air Room Air BMI result Body Mass Index 30.4 Const General: cooperative and no acute distress Orientation/consciousness: oriented to person and oriented to place Limitations: no limitations HENID Head: Yes normal to inspection, Yes normocephalic and Yes atraumatic Ears: external ears normal General nose exam: Normal external nose present Face and sinus: Yes normal facial exam Mouth: Normal oral and palatal mucosa present Throat: Yes posterior oropharynx normal Eyes General: appearance normal, both eyes and all related structures Pupils: Equal, round and reactive pupils present Neck Neck: Yes normal visual inspection, Yes no lymphadenopathy, Yes trachea midline and Yes supple Chest Chest palpation & inspection: normal inspection of the chest and normal palpation of entire chest wall Resp Effort & Inspection: normal respiratory effort and able to speak in complete sentences Auscultation: clear to auscultation bilaterally Cardio Rate: regular rate Rhythm: regular rhythm Heart sounds: S1 normal heart sound present, S2 normal heart sound present and no murmurs GI Inspection: Yes normal to inspection Palpation (GI): Soft to palpation, Tenderness to palpation present (GI) (Mild diffuse tenderness, moderate epigastric, right upper quadrant tenderne) and no guarding Auscultation: normal bowel sounds General: Yes no CVA tenderness Back/Spine/Pelvis Back: no CVA tenderness Skin General skin exam: no rashes or lesions noted Neuro General: oriented to person and oriented to place Cranial nerves: Yes CN's II-XII intact bilaterally and Yes Equal, round and reactive pupils present Cognition (Neuro): normal cognition Motor exam (neuro): 5/5 motor strength present throughout Extrem General: Yes normal to inspection Psych Appearance: grossly normal Speech and movement: Normal speech and movement present Affect: normal affect Attitude: cooperative Thought process: Normal thought process present Thought content: Normal thought content present Course Course Course Narrative: 71-year-old female who presents emergency department for evaluation of nausea, vomiting, body aches, chills, abdominal x2 days. Patient's vital signs did reveal an elevated blood pressure of 156/78 otherwise were unremarkable. Patient did have diffuse mild abdominal tenderness with increased epigastric and right upper quadrant tenderness. I did order laboratory evaluation includes CBC, CMP,lipase, PT/INR, PTT, troponin, urinalysis, COVID-19, influenza. Patient was ordered to get normal saline IV x1 L, Zofran 4 mg IV and Toradol 15 mg IV 1850: Laboratory evaluation: CBC was normal CMP was normal. Lipase was not elevated. Urinalysis and microscopic was nonspecific, influenza was negative COVID-19 was positive Radiology evaluation: CT scan of the abdomen pelvis without contrast revealed no acute findings. Patient's presentation is consistent with COVID-19 infection. The patient did feel better after the above treat. The patient is on multiple medications that cannot be. Therefore she does not qualify for PAxlovid. The patient would benefit from IV remdesivir I did discuss this with her however she does not want this treatment at this time. The patient was therefore discharged home with printed and verbal instructions. Medications Administered Discontinued Medications Generic Name Dose Route Start Last Admin Trade Name Freq PRN Reason Stop Dose Admin Sodium Chloride 1,000 mls @ 999 mls/hr 09/08/22 15:32 09/08/22 17:06 Ns IV 09/08/22 16:32 999 mls/hr .Q1H1M STA Administration Ketorolac Tromethamine 15 mg 09/08/22 15:32 09/08/22 17:06 Ketorolac Tromethamine 15 Mg/Ml Vial IVPUSH 09/08/22 15:33 15 mg ONCE STA Administration Ondansetron HCl 4 mg 09/08/22 15:32 09/08/22 17:06 Ondansetron Hcl 4 Mg/2 Ml Vial IVPUSH 09/08/22 15:33 4 mg ONCE ONE Administration Discharge Plan Discharge Clinical Impression: COVID-19 virus infection, Myalgia, Abdominal pain, Vomiting Patient Disposition: Home, Self-Care Instructions: COVID-19 (Coronavirus Disease 2019) (ED) Additional Instructions: Your blood work was normal. The CT scan of your abdomen pelvis did not reveal a clear cause for your abdominal pain. Your influenza test was negative. Your COVID-19 test was positive. Your symptoms are consistent with a COVID infection. Since you are not vaccinated I offered to refer you to the [facility] infusion clinic for IV remdesivir over 3 days however you declined this at this time. Take Tylenol (acetaminophen) 500 mg pills, 2 pills every 4 to 6 hours as needed for pain or fever. Take Zofran ODT 4 mg pills, 1 pill dissolved in your mouth every 8 hours as needed for nausea and vomiting. Watch for signs of pneumonia which include chest pain, shortness of breath, shortness of breath with walking, high fever, productive cough. Follow-up with your doctor in 2 days. Please return to the emergency department if your symptoms get worse or if you develop any symptoms that are concerning to you. Prescriptions: New ondansetron 4 mg tablet,disintegrating 4 mg PO Q6-8H PRN (Reason: nausea and vomiting) Qty: 14 0RF No Action Multaq 400 mg tablet 400 mg PO BID 90 Days Qty: 180 2RF diltiazem HCl [Cardizem CD] 120 mg capsule,extended release 24hr 120 mg PO DAILY Qty: 30 5RF rosuvastatin [Crestor] 10 mg tablet 10 mg PO DAILY 90 Days Qty: 90 1RF Eliquis 5 mg tablet 5 mg PO BID Qty: 60 5RF prednisone 5 mg tablet 5 mg PO DAILY Qty: 30 11RF Hold Instructions: resume after completion of prednisone taper loratadine 10 mg tablet 10 mg PO DAILY 90 Days Qty: 90 3RF Nucala 100 mg/mL syringe 100 mg subcut Q4W Qty: 1 11RF Incruse Ellipta 62.5 mcg/actuation blister with device 1 inh inhalation DAILY levothyroxine 25 mcg tablet 25 mcg PO DAILY@0630 ipratropium-albuterol 0.5 mg-3 mg(2.5 mg base)/3 mL solution for nebulization 3 ml inhalation QID PRN (Reason: Shortness Of Breath) omeprazole 20 mg capsule,delayed release(DR/EC) 20 mg PO DAILY@0630 aripiprazole 5 mg tablet 5 mg PO DAILY albuterol sulfate 90 mcg/actuation HFA aerosol inhaler 2 inh inhalation Q6H PRN (Reason: shortness of breath or wheezing) 30 Days Qty: 18 12RF escitalopram oxalate 10 mg tablet 10 mg PO DAILY
--- NOTE | 2022-09-08 19:21 | PC.NURSE ---
inspector heating and refrigeration Babar utilized at time of discharge. iv removed. pt reports 0/10 pain at this time. pt ambulatory at time of discharge. discharge packet provided to pt. pt verbalized understanding of discharge plan
== END 2022-09-08 19:23 | disposition home or self-care (01) ==
PROVIDERS: Emergency Provider Emergency Medicine Emergency Medical Services; PCP Internal Medicine
DX: U07.1 COVID-19 (principal); R11.2 Nausea with vomiting, unspecified; M79.10 Myalgia, unspecified site; R10.9 Unspecified abdominal pain; Z79.899 Other long term (current) drug therapy
CPT/HCPCS: 74176; 80053; 81001; 83690; 84484; 85025; 85610; 85730; 87502; 87635; 93005; 96361; 96374; 96375; 99284; J1885; J2405

== ENCOUNTER 2022-09-13 11:00 | Observation (INO) | payer OTHER, SELFPAY ==
--- NOTE | ~2022-09-13 | CT_ITS ---
EXAMINATION: CT ABDOMEN AND PELVIS WITHOUT CONTRAST CLINICAL INFORMATION: Diffuse abdominal pain COMPARISON: CT abdomen pelvis September 08, 2022 TECHNIQUE: Multidetector volumetric imaging was performed from the superior aspect of the liver through the pubic symphysis. Sagittal and coronal reformatted images were obtained on the technologist's workstation. This CT examination was performed using dose optimization techniques as appropriate, variously including the following: *Automated exposure control *Adjustment of mA and/or kV according to patient size (this includes techniques or standardized protocols for targeted exams where dose is matched to indication/reason for exam; i.e. extremities or head) *Use of iterative reconstruction technique DLP: 760 mGy-cm FINDINGS: LUNG BASES: Visualized lung bases demonstrate mild dependent atelectasis. The liver demonstrates normal size, contour and attenuation. The gallbladder is normal in appearance. The pancreas, spleen and adrenal glands are unremarkable. Small anterior splenule. Symmetrically sized kidneys. No renal calculi or hydronephrosis of either kidney. Suspected mild cortical scarring along the posterior midpole the right kidney. Tiny hiatal hernia. The stomach is decompressed. Normal caliber loops of small and large bowel. Normal appendix. Stable small fat-containing umbilical hernia. Normal caliber abdominal aorta demonstrating mild to moderate atherosclerotic disease. The IVC is diminutive. There is a dilated left gonadal vein. Circumaortic left renal vein. Prominent azygos vein. The bladder is decompressed. Suspected calcified uterine fibroids. No gross free pelvic fluid. Small fat-containing left inguinal hernia. No inguinal lymphadenopathy. Mild degenerative changes of the spine. CT/CT abdomen pelvis wo IV con IMPRESSION: 1. No CT evidence for acute abnormality within the abdomen or pelvis. 2. Stable chronic findings as described above. Fleischner guidelines were followed.
[2022-09-13 11:05] VITALS: BP 144/94; PULSE 86; O2SAT 96
[2022-09-13 11:06] VITALS: BP 159/75; PULSE 97; RESP 17; TEMP 36.6; O2SAT 98; BMI 30.4
--- NOTE | 2022-09-13 11:31 | ECG_ITS ---
Test Reason : dizzy Blood Pressure : / mmHG Vent. Rate : 089 BPM Atrial Rate : 089 BPM P-R Int : 140 ms QRS Dur : 080 ms QT Int : 352 ms P-R-T Axes : 037 -23 007 degrees QTc Int : 428 ms Normal sinus rhythm Moderate voltage criteria for LVH, may be normal variant ( R in aVL , Broderick product ) Borderline ECG When compared with ECG of 08-SEP-2022 15:49, No significant change was found Referred By: Jeanna Mi Electronically Signed By:LOUIE CHAUDHARY
--- NOTE | 2022-09-13 11:47 | ED.GENADULT ---
HPI - General Adult General Chief complaint: General Medical Stated complaint: ABD CRAMPING Time Seen by Provider: 09/13/22 11:08 Source: patient and EMS Mode of arrival: EMS History of Present Illness HPI narrative: 71-year-old female with a past medical history of asthma/COPD overlap syndrome on chronic prednisone and monthly Nucala, HLD, GERD, HTN, hypothyroid, AFib on Eliquis, DVTs, BIBA from home complaining of generalized fatigue/weakness, lightheadedness, abdominal cramping, nausea, and nonbloody diarrhea x6 days. Reports overall decreased p.o. intake, and lightheadedness worse with standing. Denies known fever, chills, cough, CP/SOB, headache, dysuria/hematuria. Denies recent antibiotic use or travel Onset (ago): day(s) Related Data Home Medications Medication Instructions Recorded Confirmed omeprazole 20 mg capsule,delayed 20 mg PO DAILY@0630 02/09/22 08/24/22 release escitalopram oxalate 10 mg tablet 10 mg PO DAILY 05/17/22 08/24/22 aripiprazole 5 mg tablet 5 mg PO DAILY 07/09/22 08/24/22 ipratropium 0.5 mg-albuterol 3 mg 3 ml inhalation QID PRN Shortness 07/25/22 08/24/22 (2.5 mg base)/3 mL nebulization Of Breath soln levothyroxine 25 mcg tablet 25 mcg PO DAILY@0630 07/25/22 08/24/22 umeclidinium 62.5 mcg/actuation 1 inh inhalation DAILY 07/25/22 08/24/22 blister powder for inhalation (Incruse Ellipta) Previous Rx's Medication Instructions Recorded dronedarone 400 mg tablet (Multaq) 400 mg PO BID 90 days #180 tabs 01/21/22 diltiazem HCl 120 mg 120 mg PO DAILY #30 caps 03/15/22 capsule,extended release 24 hr (Cardizem CD) rosuvastatin 10 mg tablet (Crestor) 10 mg PO DAILY 90 days #90 tabs 05/22/22 apixaban 5 mg tablet (Eliquis) 5 mg PO BID #60 tabs 07/07/22 albuterol sulfate 90 mcg/actuation 2 inh inhalation Q6H PRN shortness 07/09/22 aerosol inhaler of breath or wheezing 30 days #18 grams prednisone 5 mg tablet 5 mg PO DAILY #30 tabs 07/28/22 loratadine 10 mg tablet 10 mg PO DAILY 90 days #90 tabs 09/04/22 mepolizumab 100 mg/mL subcutaneous 100 mg subcut Q4W #1 mL 09/06/22 syringe (Nucala) ondansetron 4 mg disintegrating 4 mg PO Q6-8H PRN nausea and 09/08/22 tablet vomiting #14 tabs Allergies Allergy/AdvReac Type Severity Reaction Status Date / Time sulfamethoxazole Allergy Severe Rash Verified 08/18/22 09:09 [From Bactrim] trimethoprim [From Bactrim] Allergy Severe Rash Verified 08/18/22 09:09 levofloxacin [From LEVAQUIN] Allergy Intermediate RASH SOB, Verified 08/18/22 09:09 DIZZYNESS tramadol AdvReac Severe abdominal Verified 08/18/22 09:09 pain, vomiting acetaminophen AdvReac Intermediate vomitting Verified 08/18/22 09:09 [Tylenol-Codeine #3] atorvastatin [Lipitor] AdvReac Intermediate nausea Verified 08/18/22 09:09 codeine [CODEINE] AdvReac Intermediate NAUSEA & Verified 08/18/22 09:09 VOMITING morphine [MORPHINE] AdvReac Intermediate NAUSEA & Verified 08/18/22 09:09 VOMITING pravastatin AdvReac Intermediate myalgia Verified 08/18/22 09:09 rosuvastatin AdvReac Mild myalgia Verified 08/18/22 09:09 Review of Systems Review of Systems: Constitutional: No Fever, No Chills, + Fatigue, + Malaise ENT/Mouth: No Ear Pain, No Nasal Congestion, No sore throat, No Rhinorrhea, No Swallowing Difficulty Eyes: No Eye Pain, No Swelling, No Redness, No Vision Changes Cardiovascular: No Chest Pain, No SOB, No Edema, No Palpitations Respiratory: No Cough, No Sputum, No Dyspnea Gastrointestinal: + Nausea, No Vomiting, + Diarrhea, No Constipation, + Abdominal pain, No Hematochezia, No Melena Genitourinary: No irregular bleeding, No Dysuria, No Urinary Frequency, No Hematuria, No Urinary Incontinence/retention, No Flank Pain Musculoskeletal: No joint pain, No Myalgias, No Joint Swelling Skin: No Skin Lesions, No rash Neuro: + Weakness, No Numbness, No Paresthesias, No Loss of Consciousness, + lightheadedness, No Headache Yes all other systems are reviewed and are negative Constitutional: Constitutional: Reports as per HPI Neurologic: Denies Abnormal speech present [facility] Past Medical History Attestation statement: The following information was validated with the patient. Medical History Asthma Asthma-COPD overlap syndrome Breast pain, left Chronic allergic rhinitis Dyslipidemia Eosinophilia GERD (gastroesophageal reflux disease) HTN (hypertension) Hypothyroidism Mild recurrent major depression Osteoarthritis of knees, bilateral Osteopenia (~2007) Paroxysmal atrial fibrillation (~01/2021) Pneumonia Polyarthralgia Postmenopausal Steroid dependent Tubular adenoma of colon (~2009) Surgical History History of colonoscopy History of D&C (~2002) History of knee surgery History of nasal polypectomy (~2007) History of right breast biopsy (~1998) History of shoulder surgery (~2006) History of tubal ligation Family History Family History Father Medical history unknown Mother Medical history unknown Daughter Lupus Other Arthritis Social History Social History Household Members: None Housing: House Are you a primary manager medicare marketing to a significant other at home: No Do you presently have visiting nurse or other home services: Yes Alcohol intake: never Patient Tobacco Use Status: Former Tobacco user Tobacco use type: Cigarette e-Cigarette/Vaping Use: Never Used Second Hand Smoke Exposure: No Advance Directives: No Advance Directives Information Provided: Yes Advance Directives Date on File: 11/10/20 service: No Current occupational status: disabled Cognitive needs: Yes (cane) Hearing needs: No Vision needs: Yes (glasses) Physical Exam ED Vital Signs: Vital Signs - 24 hr 09/13/22 11:06 09/13/22 13:40 09/13/22 13:42 Temperature 98 F Pulse Rate 97 76 Respiratory Rate 17 Blood Pressure 159/75 H 160/64 H 168/61 H Pulse Oximetry 98 Oxygen Delivery Method Room Air 09/13/22 13:43 Temperature Pulse Rate 87 Respiratory Rate Blood Pressure 156/63 H Pulse Oximetry Oxygen Delivery Method BMI result Body Mass Index 30.4 Const General: cooperative, no acute distress, alert and awake Orientation/consciousness: patient oriented x3 Limitations: no limitations HENMT Head: Yes normal to inspection and Yes atraumatic Ears: hearing grossly normal bilaterally General nose exam: Normal external nose present Face and sinus: Yes normal facial exam Throat: Yes posterior oropharynx normal Eyes General: appearance normal, both eyes and all related structures EOM: EOMs intact bilaterally Neck Neck: Yes normal visual inspection and Yes no meningeal signs Resp Effort & Inspection: normal respiratory effort and no respiratory distress Auscultation: clear to auscultation bilaterally, no crackles, no rales, no rhonchi and no wheezes Cardio Rate: regular rate Heart sounds: S1 normal heart sound present and S2 normal heart sound present GI Inspection: Yes normal to inspection Palpation (GI): Soft to palpation, Tenderness to palpation present (GI) (Diffusely) with no rebound tenderness, no guarding and not rigid General: Yes no CVA tenderness Back/Spine/Pelvis Back: no CVA tenderness Skin Rashes: no rashes Wounds: no wounds Neuro General: patient oriented x3, tone normal, moves all extremities, no meningeal signs, no focal motor deficits and CN's II-XI intact bilaterally Cranial nerves: Yes CN's II-XII intact bilaterally Speech: No Abnormal speech present Gait exam (Neuro): Normal gait present Motor exam (neuro): 5/5 motor strength present throughout, Pronator motor function not present and no tremor noted Extrem General: Yes normal to inspection, Yes no pedal edema and Yes no calf tenderness Course Course Course Narrative: -1222--mild leukopenia to 4.6. H&H stable. +YOLA with Cr 1.61 > suspect from dehydration -COVID-[address] abdomen pelvis wo IV con IMPRESSION: 1.? No CT evidence for acute abnormality within the abdomen or pelvis. 2.? Stable chronic findings as described above. ? Fleischner guidelines were followed. 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 > Will admit for COVID-19/dehydration Medications Administered Discontinued Medications Generic Name Dose Route Start Last Admin Trade Name Freq PRN Reason Stop Dose Admin Famotidine 20 mg 09/13/22 11:31 09/13/22 12:01 Famotidine/Pf 20 Mg/2 Ml Vial IVPUSH 09/13/22 11:32 20 mg ONCE ONE Administration Sodium Chloride 1,000 mls @ 999 mls/hr 09/13/22 11:45 09/13/22 14:11 Ns IV 09/13/22 12:45 Infused .Q1H1M THANH Infusion Lactated Ringer's 1,000 mls @ 999 mls/hr 09/13/22 12:30 09/13/22 14:12 Lr IV 09/13/22 13:30 Infused .Q1H1M THANH Infusion Ondansetron HCl 4 mg 09/13/22 11:31 09/13/22 12:01 Ondansetron Hcl 4 Mg/2 Ml Vial IVPUSH 09/13/22 11:32 4 mg ONCE ONE Administration Medical Decision Making Medical Decision Making MDM Narrative: 71-year-old female with a past medical history of asthma/COPD overlap syndrome on chronic prednisone and monthly Nucala, HLD, GERD, HTN, hypothyroid, AFib on Eliquis, DVTs, BIBA from home complaining of generalized fatigue/weakness, lightheadedness, abdominal cramping, nausea, and nonbloody diarrhea x6 days. On exam vital signs stable, NAD, nontoxic appearing, lungs CTA, abdomen soft diffusely tender, no rebound or guarding, no pedal edema. Concern for gastroenteritis vs food poisoning vs diverticulitis/appendicitis vs colitis. Rule out UTI and other metabolic abnormalities including dehydration. Low suspicion for severe sepsis at this time Plan: Labs, UA, CT AP, IVF, antiemetics, p.o. challenge/re-evaluate Differential Diagnosis Differential Diagnoses: The differential diagnosis associated with the presentation includes Admission/Observation Consideration of admission/observation: Escalation of care including admission/observation considered Lab Data [facility] Lab Attestation statement: I reviewed the patient's lab results. Result Diagrams: 09/13/22 11:47 09/13/22 11:47 Labs: Lab Results 09/13/22 09/13/22 09/13/22 Range/Units 11:47 11:47 11:47 WBC 4.6 L (4.8-10.8) X10*3/uL RBC 4.93 (4.20-5.50) X10*6/uL Hgb 12.6 (12.0-16.0) g/dl Hct 41.0 (37.0-47.0) % MCV 83.2 (80.0-98.0) fL MCH 25.6 L (27.0-33.0) pg MCHC 30.7 L (31.0-35.0) g/dl RDW 15.6 (11.0-16.0) % Plt Count 297 (160-400) X10*3/uL MPV 9.2 L (9.4-12.3) fL Immature Gran % (Auto) 0.4 (0.0-0.4) % Neut % (Auto) 67.4 (45-73) % Lymph % (Auto) 24.3 (20-40) % [place] % (Auto) 7.7 (2-11) % Eos % (Auto) 0.0 (0-4) % Baso % (Auto) 0.2 (0-2) % Lymph # (Auto) 1.1 L (1.2-4.9) X10*3/uL [place] # (Auto) 0.4 (0.1-1.2) X10*3/uL Eos # (Auto) 0.0 (0.0-0.4) X10*3/uL Baso # (Auto) 0.0 (0.0-0.2) X10*3/uL Abs Immat Gran (auto) 0.02 (0.00-0.03) X10*3/uL Absolute Neuts (auto) 3.1 (2.0-8.3) x10*3/uL Absolute Nucleated RBC 0.000 (0.0-0.012) X10*3/uL Nucleated RBC % (auto) 0.0 (0.0-0.2) /100WBC Sodium 140 (135-145) mmol/L Potassium 4.5 (3.3-5.1) mmol/L Chloride 103 (96-108) mmol/L Carbon Dioxide 26 (22-29) mmol/L Anion Gap 16 (12-20) BUN 17 H (9-16) mg/dL Creatinine 1.61 H (0.5-1.4) mg/dL Estim Creat Clear Calc 31.2 Estimated GFR 31 Random Glucose 99 (60-115) mg/dL Calcium 9.0 (8.4-10.2) mg/dL Magnesium 1.8 (1.6-2.6) mg/dL Total Bilirubin 0.4 (0.0-1.0) mg/dL Direct Bilirubin < 0.2 (0.0-0.5) mg/dL AST 21 (5-31) U/L ALT 12 (0-31) U/L Alkaline Phosphatase 66 (39-117) U/L Troponin I High Sens 4.5 (<3.5-17.0) ng/L Total Protein 7.1 (6.5-8.0) g/dL Albumin 4.3 (3.5-5.0) g/dL Lipase 38 (8-78) U/L Urine Color Urine Appearance Urine pH (5.0-9.0) Ur Specific [place] (1.005-1.025) Urine Protein (Neg-Trace) mg/dL Urine Glucose (UA) (Negative) mg/dL Urine Ketones (Negative) mg/dL Urine Blood (Negative) Urine Nitrite (Negative) Ur Leukocyte Esterase (Negative) Influenza Type A (PCR) (Negative) Influenza Type B (PCR) (Negative) RSV RNA Qual (PCR) (Negative) SARS-CoV-2 RNA (RT-PCR) (Negative) 09/13/22 09/13/22 Range/Units 11:47 13:56 WBC (4.8-10.8) X10*3/uL RBC (4.20-5.50) X10*6/uL Hgb (12.0-16.0) g/dl Hct (37.0-47.0) % MCV (80.0-98.0) fL MCH (27.0-33.0) pg MCHC (31.0-35.0) g/dl RDW (11.0-16.0) % Plt Count (160-400) X10*3/uL MPV (9.4-12.3) fL Immature Gran % (Auto) (0.0-0.4) % Neut % (Auto) (45-73) % Lymph % (Auto) (20-40) % [place] % (Auto) (2-11) % Eos % (Auto) (0-4) % Baso % (Auto) (0-2) % Lymph # (Auto) (1.2-4.9) X10*3/uL [place] # (Auto) (0.1-1.2) X10*3/uL Eos # (Auto) (0.0-0.4) X10*3/uL Baso # (Auto) (0.0-0.2) X10*3/uL Abs Immat Gran (auto) (0.00-0.03) X10*3/uL Absolute Neuts (auto) (2.0-8.3) x10*3/uL Absolute Nucleated RBC (0.0-0.012) X10*3/uL Nucleated RBC % (auto) (0.0-0.2) /100WBC Sodium (135-145) mmol/L Potassium (3.3-5.1) mmol/L Chloride (96-108) mmol/L Carbon Dioxide (22-29) mmol/L Anion Gap (12-20) BUN (9-16) mg/dL Creatinine (0.5-1.4) mg/dL Estim Creat Clear Calc Estimated GFR Random Glucose (60-115) mg/dL Calcium (8.4-10.2) mg/dL Magnesium (1.6-2.6) mg/dL Total Bilirubin (0.0-1.0) mg/dL Direct Bilirubin (0.0-0.5) mg/dL AST (5-31) U/L ALT (0-31) U/L Alkaline Phosphatase (39-117) U/L Troponin I High Sens (<3.5-17.0) ng/L Total Protein (6.5-8.0) g/dL Albumin (3.5-5.0) g/dL Lipase (8-78) U/L Urine Color Yellow Urine Appearance Clear Urine pH 5.5 (5.0-9.0) Ur Specific [place] 1.010 (1.005-1.025) Urine Protein Negative (Neg-Trace) mg/dL Urine Glucose (UA) Negative (Negative) mg/dL Urine Ketones Negative (Negative) mg/dL Urine Blood Negative (Negative) Urine Nitrite Negative (Negative) Ur Leukocyte Esterase Negative (Negative) Influenza Type A (PCR) NEGATIVE (Negative) Influenza Type B (PCR) NEGATIVE (Negative) RSV RNA Qual (PCR) NEGATIVE (Negative) SARS-CoV-2 RNA (RT-PCR) POSITIVE A (Negative) Independent Interpretation I performed an independent interpretation of an: EKG (EKG normal sinus rhythm at a rate of 89. QTC 428. No STEMI.) Independent Historian Clinical information obtained from an independent historian. History obtained from or confirmed by: EMS External Record Review External record reviewed: Inpatient record, Outpatient record, Prior outpatient labs and Prior outpatient radiology Discharge Plan Discharge Clinical Impression: COVID-19, YOLA (acute kidney injury) Prescriptions: No Action Multaq 400 mg tablet 400 mg PO BID 90 Days Qty: 180 2RF diltiazem HCl [Cardizem CD] 120 mg capsule,extended release 24hr 120 mg PO DAILY Qty: 30 5RF rosuvastatin [Crestor] 10 mg tablet 10 mg PO DAILY 90 Days Qty: 90 1RF Eliquis 5 mg tablet 5 mg PO BID Qty: 60 5RF prednisone 5 mg tablet 5 mg PO DAILY Qty: 30 11RF Hold Instructions: resume after completion of prednisone taper loratadine 10 mg tablet 10 mg PO DAILY 90 Days Qty: 90 3RF Nucala 100 mg/mL syringe 100 mg subcut Q4W Qty: 1 11RF ondansetron 4 mg tablet,disintegrating 4 mg PO Q6-8H PRN (Reason: nausea and vomiting) Qty: 14 0RF Incruse Ellipta 62.5 mcg/actuation blister with device 1 inh inhalation DAILY levothyroxine 25 mcg tablet 25 mcg PO DAILY@0630 ipratropium-albuterol 0.5 mg-3 mg(2.5 mg base)/3 mL solution for nebulization 3 ml inhalation QID PRN (Reason: Shortness Of Breath) omeprazole 20 mg capsule,delayed release(DR/EC) 20 mg PO DAILY@0630 aripiprazole 5 mg tablet 5 mg PO DAILY albuterol sulfate 90 mcg/actuation HFA aerosol inhaler 2 inh inhalation Q6H PRN (Reason: shortness of breath or wheezing) 30 Days Qty: 18 12RF escitalopram oxalate 10 mg tablet 10 mg PO DAILY
[2022-09-13 11:52] LABS: MANUAL DIFF FLAG NO
[2022-09-13 11:53] LABS: Basophils Percent Auto 0.2 % (0-2); Hemoglobin 12.6 g/dl (12.0-16.0); Imm Gran Abs Auto 0.02 X10*3/uL (0.00-0.03); Imm Gran Pct Auto 0.4 % (0.0-0.4); Lymphocytes Absolute Auto 1.1 X10*3/uL (1.2-4.9); Lymphocytes Percent Auto 24.3 % (20-40); Mean Corpuscular HGB Conc 30.7 g/dl (31.0-35.0); Mean Corpuscular Hemoglobin 25.6 pg (27.0-33.0); Mean Corpuscular Volume 83.2 fL (80.0-98.0); Mean Platelet Volume 9.2 fL (9.4-12.3); Monocytes Absolute Auto 0.4 X10*3/uL (0.1-1.2); Monocytes Percent Auto 7.7 % (2-11); Neutrophils Absolute Auto 3.1 x10*3/uL (2.0-8.3); Neutrophils Percent Auto 67.4 % (45-73); Platelet Count 297 X10*3/uL (160-400); Red Blood Count 4.93 X10*6/uL (4.20-5.50); Red Cell Distribution Width 15.6 % (11.0-16.0); White Blood Count 4.6 X10*3/uL (4.8-10.8)
[2022-09-13] MEDS: Famotidine/PF 20 MG/2 ML VIAL IVPUSH (12:01)
[2022-09-13] MEDS: 0.9 % Sodium Chloride 1,000 ML 999 ML IV (12:01)
[2022-09-13] MEDS: ondansetron HCL 4 MG/2 ML VIAL IVPUSH (12:01)
[2022-09-13 12:13] LABS: Alanine Aminotransferase 12 U/L (0-31); Albumin Level 4.3 g/dL (3.5-5.0); Alkaline Phosphatase 66 U/L (39-117); Anion Gap 16 (12-20); Aspartate Amino Transferase 21 U/L (5-31); Bilirubin Direct < 0.2 mg/dL (0.0-0.5); Bilirubin Total 0.4 mg/dL (0.0-1.0); Blood Urea Nitrogen 17 mg/dL (9-16); Carbon Dioxide 26 mmol/L (22-29); Chloride 103 mmol/L (96-108); Creatinine Clr Calc Pharmacy 31.2; Estimated Glomerular Filt Rate 31; Glucose Random 99 mg/dL (60-115); Lipase 38 U/L (8-78); Magnesium 1.8 mg/dL (1.6-2.6); Potassium 4.5 mmol/L (3.3-5.1); Sodium 140 mmol/L (135-145); Total Protein 7.1 g/dL (6.5-8.0)
[2022-09-13 12:20] LABS: Troponin-I High Sensitivity 4.5 ng/L (<3.5-17.0)
[2022-09-13 12:30] LABS: Influenza A PCR NEGATIVE (Negative); Influenza B PCR NEGATIVE (Negative); Resp Syncy Virus RNA Qual PCR NEGATIVE (Negative); SARS COV2 PCR INHOUSE POSITIVE (Negative)
[2022-09-13] MEDS: Lactated Ringers 1,000 ML 999 ML IV (13:04)
[2022-09-13 13:40] VITALS: BP 160/64; PULSE 76
[2022-09-13 13:42] VITALS: BP 168/61
[2022-09-13 13:43] VITALS: BP 156/63; PULSE 87
[2022-09-13 14:03] LABS: Appearance Urine Clear; Color Urine Yellow; Glucose Urine UA Negative (Negative); Leukocyte Esterase Urine Negative (Negative); Nitrite Urine Negative (Negative); PH 5.5 (5.0-9.0); Urine Blood Negative (Negative); Urine Ketones Negative (Negative); Urine Protein Negative (Neg-Trace)
--- NOTE | 2022-09-13 16:11 | PHA.MEDREC ---
Pharmacy Consult ? Medication Reconciliation Pharmacy has completed the medication reconciliation.
--- NOTE | 2022-09-13 16:50 | PC.NURSE ---
Pt resting comfortably on stretcher at this time, hsa no complaints of pain, awaiting bed placement
--- NOTE | 2022-09-13 17:10 | PC.NURSE ---
attempted report, [facility] RN unavailable at this time, will call back
[2022-09-13 17:19] VITALS: BP 134/46; PULSE 84; RESP 20; TEMP 37.1; O2SAT 97
--- NOTE | 2022-09-13 17:44 | PM.IMHP ---
History of Present Illness Date of Service: 09/13/22 Attending physician on admission: Jake Watson Chief Complaint: COVID-19, weakness, decreased PO intake 71-year-old female with history asthma/COPD overlap syndrome on chronic prednisone and monthly Nucala, hyperlipidemia, GERD, hypertension, hypothyroidism, paroxysmal atrial fibrillation anticoagulated with Eliquis, history DVT, diagnosed with COVID-19 on 09/08, presents to the ED via EMS from home for evaluation. She is reporting generalized fatigue/weakness, headache, cough, abdominal cramping, nausea, episode of diarrhea x1, and decreased p.o. intake ongoing for 6 days. She states she has also been experiencing positional lightheadedness. She has not noted any increased wheezing, shortness of breath, dyspnea on exertion, chest pain. She denies any fevers, shaking chills, sore throat, nasal congestion, vomiting. No increased albuterol use. She is a former smoker but denies any alcohol or illicit drug use. IN the ED, VSS, afebrile. Hematology studies unremarkable. Creatinine mildly elevated from baseline at 1.61, but no true YOLA. Electrolyte levels normal. Urinalysis unremarkable. Positive for COVID-19, negative for influenza and RSV. CT abdomen/pelvis negative for any acute abnormality within the abdomen/pelvis. CXR pending. In the ED, resuscitated with 1 L bolus lactated Ringer's and 1 L bolus normal saline. Patient to be observed for generalized weakness with decreased p.o. intake related to COVID-19. Review of Systems Review of Systems: General: No fevers, malaise, unintentional weight loss HEENT: No blurred vision, diplopia. No sore throat, nasal congestion, rhinorrhea, sinus pain, ear pain Cardiovascular: No chest pain, palpitations, or leg edema Respiratory: No shortness of breath, wheezing, cough GI: +abdominal cramping, +nausea, diarrhea. No vomiting, constipation, melena, hematochezia : +urinary frequency/incontinence. No dysuria, hematuria, decreased urinary output MSK: No myalgia, back pain Neuro: +generalized weakness, +lightheadedness. No headaches, paresthesias Skin: No rashes or lesions [facility] Medical History (Updated 09/13/22 @ 17:57 by ROBBIE Damian) Asthma Asthma-COPD overlap syndrome Breast pain, left Chronic allergic rhinitis Dyslipidemia Eosinophilia GERD (gastroesophageal reflux disease) HTN (hypertension) Hypothyroidism Mild recurrent major depression Osteoarthritis of knees, bilateral Osteopenia (~2007) Paroxysmal atrial fibrillation (~01/2021) Pneumonia Polyarthralgia Postmenopausal Steroid dependent Tubular adenoma of colon (~2009) Family History Father Medical history unknown Mother Alzheimer disease Daughter Lupus Other Arthritis Surgical History History of colonoscopy History of D&C (~2002) History of knee surgery History of nasal polypectomy (~2007) History of right breast biopsy (~1998) History of shoulder surgery (~2006) History of tubal ligation Social History Household Members: None Housing: House Are you a primary pediatric acute care unit nurse to a significant other at home: No Do you presently have visiting nurse or other home services: Yes Alcohol intake: never Patient Tobacco Use Status: Former Tobacco user Tobacco use type: Cigarette e-Cigarette/Vaping Use: Never Used Second Hand Smoke Exposure: No Advance Directives: No Advance Directives Information Provided: Yes Advance Directives Date on File: 11/10/20 service: No Current occupational status: disabled Cognitive needs: Yes (cane) Hearing needs: No Vision needs: Yes (glasses) Meds Allergies Allergy/AdvReac Type Severity Reaction Status Date / Time sulfamethoxazole Allergy Severe Rash Verified 08/18/22 09:09 [From Bactrim] trimethoprim [From Bactrim] Allergy Severe Rash Verified 08/18/22 09:09 levofloxacin [From LEVAQUIN] Allergy Intermediate RASH SOB, Verified 08/18/22 09:09 DIZZYNESS tramadol AdvReac Severe abdominal Verified 08/18/22 09:09 pain, vomiting acetaminophen AdvReac Intermediate vomitting Verified 08/18/22 09:09 [Tylenol-Codeine #3] atorvastatin [Lipitor] AdvReac Intermediate nausea Verified 08/18/22 09:09 codeine [CODEINE] AdvReac Intermediate NAUSEA & Verified 08/18/22 09:09 VOMITING morphine [MORPHINE] AdvReac Intermediate NAUSEA & Verified 08/18/22 09:09 VOMITING pravastatin AdvReac Intermediate myalgia Verified 08/18/22 09:09 rosuvastatin AdvReac Mild myalgia Verified 08/18/22 09:09 Active Medications: Current Medications Acetaminophen (Acetaminophen 325 Mg Tablet) 650 mg PO Q6H PRN PRN Reason: Pain, Mild (Pain Scale 1-3) Albuterol Sulfate (Albuterol Sulfate (0.083%) 2.5 Mg/3 Ml Vial.Neb) 2.5 mg INHALE Q2H PRN PRN Reason: Shortness of Breath/Wheezing Albuterol Sulfate (Albuterol Sulfate 90 Mcg 8 Gm Inhaler) 2 puff INHALE Q6H PRN PRN Reason: shortness of breath or wheezing Apixaban (Apixaban 5 Mg Tablet) 5 mg PO BID [facility] Aripiprazole (Aripiprazole 5 Mg Tablet) 5 mg PO DAILY [facility] Atorvastatin Calcium (Atorvastatin Calcium 40 Mg Tablet) 40 mg PO DAILY [facility] Diltiazem HCl (Diltiazem Hcl Cd 120 Mg Cap.Er.Deg) 120 mg PO DAILY [facility]; Protocol Dronedarone (Dronedarone Hcl 400 Mg Tablet) 400 mg PO BID [facility] Escitalopram Oxalate (Escitalopram Oxalate 10 Mg Tablet) 10 mg PO DAILY [facility] Levothyroxine Sodium (Levothyroxine Sodium 25 Mcg Tablet) 25 mcg PO DAILY@0630 [facility] Loratadine (Loratadine 10 Mg Tablet) 10 mg PO DAILY [facility] Non-Formulary Medication (Umeclidinium [Incruse Ellipta]) 1 inhalation INHALE DAILY [facility] Omeprazole (Omeprazole 20 Mg Capsule.Dr) 20 mg PO DAILY@0630 [facility] Ondansetron HCl (Ondansetron Hcl 4 Mg/2 Ml Vial) 4 mg IVPUSH Q8H PRN PRN Reason: Nausea and Vomiting Prednisone (Prednisone 5 Mg Tablet) 5 mg PO DAILY [facility] Sodium Chloride (0.9 % Sodium Chloride Flush 3 Ml Syringe) 3 ml IVFLUSH QSHIFT [facility] Home Medications Medication Instructions Recorded Confirmed Last Taken Type omeprazole 20 mg capsule,delayed 20 mg PO DAILY@0630 02/09/22 09/13/22 Unknown History release escitalopram oxalate 10 mg tablet 10 mg PO DAILY 05/17/22 09/13/22 Unknown History aripiprazole 5 mg tablet 5 mg PO DAILY 07/09/22 09/13/22 Unknown History ipratropium 0.5 mg-albuterol 3 mg 3 ml inhalation QID PRN Shortness 07/25/22 09/13/22 Unknown History (2.5 mg base)/3 mL nebulization Of Breath soln levothyroxine 25 mcg tablet 25 mcg PO DAILY@0630 07/25/22 09/13/22 Unknown History umeclidinium 62.5 mcg/actuation 1 inh inhalation DAILY 07/25/22 09/13/22 Unknown History blister powder for inhalation (Incruse Ellipta) ondansetron 4 mg disintegrating 4 mg PO Q6H PRN nausea and vomiting 09/13/22 09/13/22 Unknown History tablet Physical Exam Vital Signs and Narrative: Vital Signs: Last Vital Signs Temp 98.8 F 09/13/22 17:19 Pulse 84 09/13/22 17:19 Resp 20 09/13/22 17:19 BP 134/46 L 09/13/22 17:19 Pulse Ox 97 09/13/22 17:19 O2 Del Method 09/13/22 17:19 BMI result Body Mass Index 30.4 Constitutional - Awake and Alert, No apparent distress Eyes - PERRLA, EOMI Cardiovascular - S1S2, RRR, No edema Respiratory - Normal lung expansion, Normal respiratory effort, No respiratory distress, faint expiratory wheezing BLL and ANGEL Gastrointestinal - NT / ND; +BS; No rebound or guarding Extremities - no calf tenderness bilaterally, no swelling Musculoskeletal - Normal inspection, normal ROM Skin - Warm/Dry Neurological - Alert & oriented x3, CN II-XII in tact, 4/5 strength BUE and BLE Psychological - Appropriate affect Results Labs CBC and Chem 7: 09/13/22 11:47 09/13/22 11:47 Labs: Laboratory Results - last 24 hr 09/13/22 09/13/22 09/13/22 11:47 11:47 11:47 MCV 83.2 MCH 25.6 L MCHC 30.7 L RDW 15.6 Plt Count 297 MPV 9.2 L Immature Gran % (Auto) 0.4 Neut % (Auto) 67.4 Lymph % (Auto) 24.3 [place] % (Auto) 7.7 Eos % (Auto) 0.0 Baso % (Auto) 0.2 Lymph # (Auto) 1.1 L [place] # (Auto) 0.4 Eos # (Auto) 0.0 Baso # (Auto) 0.0 Abs Immat Gran (auto) 0.02 Absolute Neuts (auto) 3.1 Absolute Nucleated RBC 0.000 Nucleated RBC % (auto) 0.0 Anion Gap 16 Estim Creat Clear Calc 31.2 Estimated GFR 31 Random Glucose 99 Calcium 9.0 Magnesium 1.8 Total Bilirubin 0.4 Direct Bilirubin < 0.2 AST 21 ALT 12 Alkaline Phosphatase 66 Troponin I High Sens 4.5 Total Protein 7.1 Albumin 4.3 Lipase 38 Urine Color Urine Appearance Urine pH Ur Specific [place] Urine Protein Urine Glucose (UA) Urine Ketones Urine Blood Urine Nitrite Ur Leukocyte Esterase Influenza Type A (PCR) Influenza Type B (PCR) RSV RNA Qual (PCR) SARS-CoV-2 RNA (RT-PCR) 09/13/22 09/13/22 11:47 13:56 MCV MCH MCHC RDW Plt Count MPV Immature Gran % (Auto) Neut % (Auto) Lymph % (Auto) [place] % (Auto) Eos % (Auto) Baso % (Auto) Lymph # (Auto) [place] # (Auto) Eos # (Auto) Baso # (Auto) Abs Immat Gran (auto) Absolute Neuts (auto) Absolute Nucleated RBC Nucleated RBC % (auto) Anion Gap Estim Creat Clear Calc Estimated GFR Random Glucose Calcium Magnesium Total Bilirubin Direct Bilirubin AST ALT Alkaline Phosphatase Troponin I High Sens Total Protein Albumin Lipase Urine Color Yellow Urine Appearance Clear Urine pH 5.5 Ur Specific [place] 1.010 Urine Protein Negative Urine Glucose (UA) Negative Urine Ketones Negative Urine Blood Negative Urine Nitrite Negative Ur Leukocyte Esterase Negative Influenza Type A (PCR) NEGATIVE Influenza Type B (PCR) NEGATIVE RSV RNA Qual (PCR) NEGATIVE SARS-CoV-2 RNA (RT-PCR) POSITIVE A Imaging Radiologist's Impressions: Impressions Abdomen/Pelvis CT 09/13/22 12:[address]: 1[address] evidence for acute abnormality within the abdomen or pelvis. 2. Stable chronic findings as described above. Fleischner guidelines were followed. Assessment and Plan (1) COVID-19 virus infection: Status: Acute (2) Generalized weakness: Status: Acute (3) Decreased oral intake: Status: Acute Plan 71-year-old female with history asthma/COPD overlap syndrome on chronic prednisone and monthly Nucala, hyperlipidemia, GERD, hypertension, hypothyroidism, paroxysmal atrial fibrillation anticoagulated with Eliquis, history DVT, diagnosed with COVID-19 on 09/08 to be observed for COVID-19 with decreased p.o. intake and generalized weakness. # COVID-19 infection -diagnosed 09/08 with symptom onset 8 days ago -antiviral therapy not indicated -additional systemic steroid therapy not indicated, continue home prednisone -clear liquids given decreased p.o. tolerance, advanced as tolerated -given 2 L IVF boluses in the ED. Hold on additional IVF given COVID-19 diagnosis to ensure lungs remain dry -ondansetron p.r.n. for nausea -PT/OT evaluation given generalized weakness -CXR pending # asthma/COPD overlap-no acute exacerbation -continue home prednisone. On monthly Nucala -continue maintenance inhalers -albuterol p.r.n. # paroxysmal atrial fibrillation-rate controlled -continue Eliquis for anticoagulation -Continue multaq and diltiazem # hypertension-reasonably controlled -continue home meds # hypothyroidism -continue levothyroxine # unspecified mood disorder -continue Lexapro, Abilify # HLD -continue statin # GERD -continue PPI DVT prophylaxis-on Eliquis DNR/DNI Time Spent With Patient Time: Total time managing care of this patient today ____ minutes. Quality Stroke Does the patient have a stroke diagnosis?: No VTE Prior VTE?: No VTE Risk Level:: Medical - moderate - high VTE Device Contraindication: Treatment Not Indicated VTE Drug Contraindication: N/A - Med Ordered
--- NOTE | 2022-09-13 18:46 | PM.DS ---
DS: Providers Provider Date of Service: 09/13/22 Date of admission: 09/13/22 16:18 Date of discharge: 09/13/22 Primary care physician: Angelique Valentine MD Admitting clinician: Megan Merrill Attending physician on admission: Jake Watson Attending physician on discharge: [facility] Discharging clinician: Megan Merrill DS: Diagnosis Discharge Diagnosis (1) COVID-19 virus infection: Status: Acute (2) Generalized weakness: Status: Acute (3) Decreased oral intake: Status: Acute DS: Summary Time Spent with Patient Time attestation: Total time managing care of this patient today ____ minutes. Discharge coordination time: Less than 30 minutes Quality: Safe Use of Opioids Does Pt have an Active Cancer Diagnosis on the Problem List?: No Quality: Stroke Does the patient have a stroke diagnosis?: No Physical Exam Vital Signs: Vital Signs: Last Vital Signs Temp 98.8 F 09/13/22 17:19 Pulse 84 09/13/22 17:19 Resp 20 09/13/22 17:19 BP 134/46 L 09/13/22 17:19 Pulse Ox 97 09/13/22 17:19 O2 Del Method 09/13/22 17:19 BMI result Body Mass Index 30.4 HPI and admission 09/14/2022: 71-year-old female with history asthma/COPD overlap syndrome on chronic prednisone and monthly Nucala, hyperlipidemia, GERD, hypertension, hypothyroidism, paroxysmal atrial fibrillation anticoagulated with Eliquis, history DVT, diagnosed with COVID-19 on 09/08, presents to the ED via EMS from home for evaluation.? She is reporting generalized fatigue/weakness, headache, cough, abdominal cramping, nausea, episode of diarrhea x1, and decreased p.o. intake ongoing for 6 days.? She states she has also been experiencing positional lightheadedness.? She has not noted any increased wheezing, shortness of breath, dyspnea on exertion, chest pain.? She denies any fevers, shaking chills, sore throat, nasal congestion, vomiting.? No increased albuterol use.? She is a former smoker but denies any alcohol or illicit drug use. IN the ED, VSS, afebrile.? Hematology studies unremarkable.? Creatinine mildly elevated from baseline at 1.61, but no true YOLA.? Electrolyte levels normal.? Urinalysis unremarkable.? Positive for COVID-19, negative for influenza and RSV.? CT abdomen/pelvis negative for any acute abnormality within the abdomen/pelvis. CXR pending.? In the ED, resuscitated with 1 L bolus lactated Ringer's and 1 L bolus normal saline.? Patient to be observed for generalized weakness with decreased p.o. intake related to COVID-19. Hospital course: Patient admitted for generalized weakness with decreased p.o. tolerance related to COVID-19. Upon arrival to [facility], patient requesting to leave. Counseled against discharge. Patient signed AMA form with prescription for ondansetron sent to pharmacy and recommendations for bland diet. Advised to return to the hospital for any worsening symptoms. DS: Data Data Completed and Pending Labs on day of discharge: Laboratory Results - last 24 hr 09/13/22 09/13/22 09/13/22 11:47 11:47 11:47 WBC 4.6 L RBC 4.93 Hgb 12.6 Hct 41.0 MCV 83.2 MCH 25.6 L MCHC 30.7 L RDW 15.6 Plt Count 297 MPV 9.2 L Immature Gran % (Auto) 0.4 Neut % (Auto) 67.4 Lymph % (Auto) 24.3 [place] % (Auto) 7.7 Eos % (Auto) 0.0 Baso % (Auto) 0.2 Lymph # (Auto) 1.1 L [place] # (Auto) 0.4 Eos # (Auto) 0.0 Baso # (Auto) 0.0 Abs Immat Gran (auto) 0.02 Absolute Neuts (auto) 3.1 Absolute Nucleated RBC 0.000 Nucleated RBC % (auto) 0.0 Sodium 140 Potassium 4.5 Chloride 103 Carbon Dioxide 26 Anion Gap 16 BUN 17 H Creatinine 1.61 H Estim Creat Clear Calc 31.2 Estimated GFR 31 Random Glucose 99 Calcium 9.0 Magnesium 1.8 Total Bilirubin 0.4 Direct Bilirubin < 0.2 AST 21 ALT 12 Alkaline Phosphatase 66 Troponin I High Sens 4.5 Total Protein 7.1 Albumin 4.3 Lipase 38 Urine Color Urine Appearance Urine pH Ur Specific [place] Urine Protein Urine Glucose (UA) Urine Ketones Urine Blood Urine Nitrite Ur Leukocyte Esterase Influenza Type A (PCR) Influenza Type B (PCR) RSV RNA Qual (PCR) SARS-CoV-2 RNA (RT-PCR) 09/13/22 09/13/22 11:47 13:56 WBC RBC Hgb Hct MCV MCH MCHC RDW Plt Count MPV Immature Gran % (Auto) Neut % (Auto) Lymph % (Auto) [place] % (Auto) Eos % (Auto) Baso % (Auto) Lymph # (Auto) [place] # (Auto) Eos # (Auto) Baso # (Auto) Abs Immat Gran (auto) Absolute Neuts (auto) Absolute Nucleated RBC Nucleated RBC % (auto) Sodium Potassium Chloride Carbon Dioxide Anion Gap BUN Creatinine Estim Creat Clear Calc Estimated GFR Random Glucose Calcium Magnesium Total Bilirubin Direct Bilirubin AST ALT Alkaline Phosphatase Troponin I High Sens Total Protein Albumin Lipase Urine Color Yellow Urine Appearance Clear Urine pH 5.5 Ur Specific [place] 1.010 Urine Protein Negative Urine Glucose (UA) Negative Urine Ketones Negative Urine Blood Negative Urine Nitrite Negative Ur Leukocyte Esterase Negative Influenza Type A (PCR) NEGATIVE Influenza Type B (PCR) NEGATIVE RSV RNA Qual (PCR) NEGATIVE SARS-CoV-2 RNA (RT-PCR) POSITIVE A Discharge Plan Discharge Anticipated Discharge Date/Time: 09/13/22 18:32 Patient Disposition: Home, Self-Care Discharge Diagnosis: COVID-19, decreased oral intake, weakness Referrals: Angelique Li MD [Primary Care Provider] - 1 Week Discharge Medications: New ondansetron 4 mg tablet,disintegrating 4 mg PO Q8H PRN (Reason: nausea and vomiting) Qty: 14 0RF Continued Multaq 400 mg tablet 400 mg PO BID 90 Days Qty: 180 2RF diltiazem HCl [Cardizem CD] 120 mg capsule,extended release 24hr 120 mg PO DAILY Qty: 30 5RF rosuvastatin [Crestor] 10 mg tablet 10 mg PO DAILY 90 Days Qty: 90 1RF Eliquis 5 mg tablet 5 mg PO BID Qty: 60 5RF prednisone 5 mg tablet 5 mg PO DAILY Qty: 30 11RF Hold Instructions: resume after completion of prednisone taper loratadine 10 mg tablet 10 mg PO DAILY 90 Days Qty: 90 3RF Nucala 100 mg/mL syringe 100 mg subcut Q4W Qty: 1 11RF ondansetron 4 mg tablet,disintegrating 4 mg PO Q6H PRN (Reason: nausea and vomiting) Incruse Ellipta 62.5 mcg/actuation blister with device 1 inh inhalation DAILY levothyroxine 25 mcg tablet 25 mcg PO DAILY@0630 ipratropium-albuterol 0.5 mg-3 mg(2.5 mg base)/3 mL solution for nebulization 3 ml inhalation QID PRN (Reason: Shortness Of Breath) omeprazole 20 mg capsule,delayed release(DR/EC) 20 mg PO DAILY@0630 aripiprazole 5 mg tablet 5 mg PO DAILY albuterol sulfate 90 mcg/actuation HFA aerosol inhaler 2 inh inhalation Q6H PRN (Reason: shortness of breath or wheezing) 30 Days Qty: 18 12RF escitalopram oxalate 10 mg tablet 10 mg PO DAILY Discharge Orders: Discharge Order (Routine); Ordered 09/13/22 Ordered By: Megan Merrill Diet: bland diet Activity on Discharge: As tolerated Stand Alone Forms: Patient Portal Discharge page Care Plan Goals: Improve oral intake, especially fluids Continue managing asthma/COPD Health Concerns: COVID-19 Plan of Treatment: Recommend rest and increased fluids (primarily water but any fluid intake, 64 oz daily) Follow bland diet (bread, rice, bananas, yogurt, applesauce, broth) Can use ondansetron as needed for nausea If not improving, contact your PCP Assessment: As above
--- NOTE | 2022-09-13 18:55 | PC.NURSE ---
New admit from ED. Patient asked this conventional underwriter to turned off the fan from the room because she suffered from depression and she can't not sleep with the noise. I explained to her that the fan is needed to filter the air because she is covid positive. patient asked for bee raiser services. Economic Development Specialist at bedside, patient stated that she is not staying because the room is duty. ROBBIE Guzman made aware and came up to see patient. Discharge order in. went over discharge instructions, follow up apt and medications administrations with patient, verbalized understanding back. Staff transported to the [facility] via w/c.
== END 2022-09-13 18:50 | disposition home or self-care (01) ==
LOC: HO.ED 14:31 → HO.EDOVER 16:33 → HO.IMC 16:43
PROVIDERS: Physician Assistant; Admitting Provider Physician Assistant; Emergency Provider Emergency Medicine; PCP Internal Medicine; Visit Provider Physician Assistant
DX: U07.1 COVID-19 (principal); R63.8 Other symptoms and signs concerning food and fluid intake; R53.1 Weakness; R10.9 Unspecified abdominal pain; I10 Essential (primary) hypertension; R05.9 Cough, unspecified; Z79.899 Other long term (current) drug therapy
CPT/HCPCS: 0241U; 36415; 74176; 80048; 80076; 81003; 83690; 83735; 84484; 85025; 93005; 96365; 96372; 96375; 96376; 99219; 99285; J2405

== ENCOUNTER 2022-09-17 10:46 | Emergency (ER) | payer OTHER, SELFPAY ==
[2022-09-17 10:57] VITALS: BP 149/65; PULSE 76; RESP 16; TEMP 36.9; O2SAT 98; BMI 30.4
[2022-09-17 10:59] VITALS: BP 130/80; PULSE 93; O2SAT 98
--- NOTE | 2022-09-17 11:00 | ED.NAVMDI ---
HPI - Nausea/Vomiting/Diarrhea General Chief complaint: Nausea/Vomiting/Diarrhea Stated complaint: NAUSEA,DIARRHEA X 1 MONTH Time Seen by Provider: 09/17/22 10:55 Source: patient Mode of arrival: ambulatory Limitations: no limitations History of Present Illness HPI Narrative: 71 year old female presents to the ER with nausea when eating for the past month. She states she feels weak. She states she had 3 episodes of loose stool last night as well. She states she has multiple allergies and history of ckd, gern at baseline has hypersomnia as well. She states she feels weak and tired. She states when she eats she gets nausea. Has not seen anyone for this for the past month. Lives alone. She does state she is still taking her medications. NO cough fever or chills. MD elicited complaint: nausea, diarrhea and abdominal pain Related Data Home Medications Medication Instructions Recorded Confirmed omeprazole 20 mg capsule,delayed 20 mg PO DAILY@0630 02/09/22 09/13/22 release escitalopram oxalate 10 mg tablet 10 mg PO DAILY 05/17/22 09/13/22 aripiprazole 5 mg tablet 5 mg PO DAILY 07/09/22 09/13/22 ipratropium 0.5 mg-albuterol 3 mg 3 ml inhalation QID PRN Shortness 07/25/22 09/13/22 (2.5 mg base)/3 mL nebulization Of Breath soln levothyroxine 25 mcg tablet 25 mcg PO DAILY@0630 07/25/22 09/13/22 umeclidinium 62.5 mcg/actuation 1 inh inhalation DAILY 07/25/22 09/13/22 blister powder for inhalation (Incruse Ellipta) ondansetron 4 mg disintegrating 4 mg PO Q6H PRN nausea and vomiting 09/13/22 09/13/22 tablet Previous Rx's Medication Instructions Recorded dronedarone 400 mg tablet (Multaq) 400 mg PO BID 90 days #180 tabs 01/21/22 diltiazem HCl 120 mg 120 mg PO DAILY #30 caps 03/15/22 capsule,extended release 24 hr (Cardizem CD) rosuvastatin 10 mg tablet (Crestor) 10 mg PO DAILY 90 days #90 tabs 05/22/22 apixaban 5 mg tablet (Eliquis) 5 mg PO BID #60 tabs 07/07/22 albuterol sulfate 90 mcg/actuation 2 inh inhalation Q6H PRN shortness 07/09/22 aerosol inhaler of breath or wheezing 30 days #18 grams prednisone 5 mg tablet 5 mg PO DAILY #30 tabs 07/28/22 loratadine 10 mg tablet 10 mg PO DAILY 90 days #90 tabs 09/04/22 mepolizumab 100 mg/mL subcutaneous 100 mg subcut Q4W #1 mL 09/06/22 syringe (Nucala) ondansetron 4 mg disintegrating 4 mg PO Q8H PRN nausea and 09/13/22 tablet vomiting #14 tabs ondansetron 4 mg disintegrating 4 mg PO Q6H #14 tabs 09/17/22 tablet Allergies Allergy/AdvReac Type Severity Reaction Status Date / Time sulfamethoxazole Allergy Severe Rash Verified 08/18/22 09:09 [From Bactrim] trimethoprim [From Bactrim] Allergy Severe Rash Verified 08/18/22 09:09 levofloxacin [From LEVAQUIN] Allergy Intermediate RASH SOB, Verified 08/18/22 09:09 DIZZYNESS tramadol AdvReac Severe abdominal Verified 08/18/22 09:09 pain, vomiting acetaminophen AdvReac Intermediate vomitting Verified 08/18/22 09:09 [Tylenol-Codeine #3] atorvastatin [Lipitor] AdvReac Intermediate nausea Verified 08/18/22 09:09 codeine [CODEINE] AdvReac Intermediate NAUSEA & Verified 08/18/22 09:09 VOMITING morphine [MORPHINE] AdvReac Intermediate NAUSEA & Verified 08/18/22 09:09 VOMITING pravastatin AdvReac Intermediate myalgia Verified 08/18/22 09:09 rosuvastatin AdvReac Mild myalgia Verified 08/18/22 09:09 Review of Systems Review of Systems: Review of systems: General: Patient denies any fever chills recent illness or falls Musculoskeletal: Denies back pain or body aches or other injuries HEENT: denies headache, runny nose, ear pain Respiratory: denies shortness of breath, cough Cardiovascular: no chest pain or palpitations : denies dysuria, frequency Abdomen: no nausea vomiting denies abdominal pain Extremities: no swelling, no pain Skin: no diaphoresis Yes all other systems are reviewed and are negative PMFSH Past Medical History Medical History (Updated 09/17/22 @ 14:39 by Yonis Huston DO) Asthma Asthma-COPD overlap syndrome Breast pain, left Chronic allergic rhinitis Dyslipidemia Eosinophilia GERD (gastroesophageal reflux disease) HTN (hypertension) Hypothyroidism Mild recurrent major depression Osteoarthritis of knees, bilateral Osteopenia (~2007) Paroxysmal atrial fibrillation (~01/2021) Pneumonia Polyarthralgia Postmenopausal Steroid dependent Tubular adenoma of colon (~2009) Surgical History History of colonoscopy History of D&C (~2002) History of knee surgery History of nasal polypectomy (~2007) History of right breast biopsy (~1998) History of shoulder surgery (~2006) History of tubal ligation Family History Family History Father Medical history unknown Mother Alzheimer disease Daughter Lupus Other Arthritis Social History Social History Household Members: None Housing: House Are you a primary career education teacher to a significant other at home: No Do you presently have visiting nurse or other home services: Yes Alcohol intake: never Patient Tobacco Use Status: Former Tobacco user Tobacco use type: Cigarette e-Cigarette/Vaping Use: Never Used Second Hand Smoke Exposure: No Advance Directives: Yes Advance Directives Information Provided: Yes Advance Directives on File: No Advance Directives Date on File: 11/10/20 service: No Current occupational status: disabled Cognitive needs: Yes (cane) Hearing needs: No Vision needs: Yes (glasses) Physical Exam Vital Signs: Vital Signs: Last Vital Signs Temp 99.3 F 09/17/22 13:45 Pulse 81 09/17/22 13:45 Resp 16 09/17/22 13:45 BP 143/60 H 09/17/22 13:45 Pulse Ox 98 09/17/22 13:45 O2 Del Method 09/17/22 13:45 BMI result Body Mass Index 30.4 General: Well-appearing well-nourished in no signs of distress HEENT: Normocephalic atraumatic Neck: No signs of JVD, no masses no tenderness or lymphadenopathy Cardiovascular: Regular rate and rhythm Respiratory: Clear to auscultation bilaterally Abdomen: Soft nontender no masses Extremities: Normal pedal pulses no signs of edema Skin: Dry warm no rashes Back: No tenderness full ROM Medications Administered Discontinued Medications Generic Name Dose Route Start Last Admin Trade Name Qing PRN Reason Stop Dose Admin Al Hydroxide/Mg Hydroxide 30 ml 09/17/22 11:00 09/17/22 11:19 Magnesium Hydrox/Alum Hydrox 30 Ml Oral.Susp PO 09/17/22 11:01 30 ml ONCE ONE Administration Dicyclomine HCl 10 mg 09/17/22 11:00 09/17/22 11:19 Dicyclomine Hcl 10 Mg Capsule PO 09/17/22 11:01 10 mg ONCE ONE Administration Famotidine 20 mg 09/17/22 11:00 09/17/22 11:19 Famotidine/Pf 20 Mg/2 Ml Vial IVPUSH 09/17/22 11:01 20 mg ONCE ONE Administration Sodium Chloride 1,000 mls @ 999 mls/hr 09/17/22 11:00 09/17/22 13:29 Ns IV 09/17/22 12:00 Infused .Q1H1M THAHN Infusion Ondansetron HCl 4 mg 09/17/22 11:00 09/17/22 11:19 Ondansetron Hcl 4 Mg/2 Ml Vial IVPUSH 09/17/22 11:01 4 mg ONCE ONE Administration Medical Decision Making Medical Decision Making [facility] Narrative: Patient with multiple complaints with acute onset of diarrhea the past day patient likely with some dehydration give the patient fluids with the patient Bentyl for her abdominal cramps her belly exam is completely benign if not use any for CT imaging I will check labs and urinalysis the patient states she is so weak. 1437 Labs look good Urine shows no signs of infection creatinine is baseline for her I have no reason for admission at this time. I will send home with kaitlin Differential Diagnosis Differential Diagnoses: The differential diagnosis associated with the presentation includes Urinary tract infection dehydration electrolyte abnormality abdominal pain less likely acute intra-abdominal process I do not think he has any imaging at this time. Admission/Observation Consideration of admission/observation: Escalation of care including admission/observation considered Lab Data Result Diagrams: 09/17/22 11:07 09/17/22 11:07 Labs: Lab Results 09/17/22 09/17/22 09/17/22 Range/Units 11:07 11:07 13:52 WBC 4.7 L (4.8-10.8) X10*3/uL RBC 4.86 (4.20-5.50) X10*6/uL Hgb 12.3 (12.0-16.0) g/dl Hct 40.7 (37.0-47.0) % MCV 83.7 (80.0-98.0) fL MCH 25.3 L (27.0-33.0) pg MCHC 30.2 L (31.0-35.0) g/dl RDW 15.6 (11.0-16.0) % Plt Count 266 (160-400) X10*3/uL MPV 9.1 L (9.4-12.3) fL Immature Gran % (Auto) 0.2 (0.0-0.4) % Neut % (Auto) 69.5 (45-73) % Lymph % (Auto) 23.7 (20-40) % Mcdonald % (Auto) 6.4 (2-11) % Eos % (Auto) 0.0 (0-4) % Baso % (Auto) 0.2 (0-2) % Lymph # (Auto) 1.1 L (1.2-4.9) X10*3/uL Mcdonald # (Auto) 0.3 (0.1-1.2) X10*3/uL Eos # (Auto) 0.0 (0.0-0.4) X10*3/uL Baso # (Auto) 0.0 (0.0-0.2) X10*3/uL Abs Immat Gran (auto) 0.01 (0.00-0.03) X10*3/uL Absolute Neuts (auto) 3.3 (2.0-8.3) x10*3/uL Absolute Nucleated RBC 0.000 (0.0-0.012) X10*3/uL Nucleated RBC % (auto) 0.0 (0.0-0.2) /100WBC Sodium 142 (135-145) mmol/L Potassium 4.5 (3.3-5.1) mmol/L Chloride 105 (96-108) mmol/L Carbon Dioxide 24 (22-29) mmol/L Anion Gap 18 (12-20) BUN 22 H (9-16) mg/dL Creatinine 1.57 H (0.5-1.4) mg/dL Estim Creat Clear Calc 32.0 Estimated GFR 32 Random Glucose 96 (60-115) mg/dL Calcium 8.9 (8.4-10.2) mg/dL Total Bilirubin 0.6 (0.0-1.0) mg/dL Direct Bilirubin 0.2 (0.0-0.5) mg/dL AST 29 D (5-31) U/L ALT 19 (0-31) U/L Alkaline Phosphatase 63 D (39-117) U/L Total Protein 7.1 (6.5-8.0) g/dL Albumin 4.2 (3.5-5.0) g/dL Lipase 37 (8-78) U/L Urine Color Dark Yellow Urine Appearance Cloudy Urine pH 5.5 (5.0-9.0) Ur Specific Pfeifer 1.025 (1.005-1.025) Urine Protein 100 (2+) H (Neg-Trace) mg/dL Urine Glucose (UA) Negative (Negative) mg/dL Urine Ketones 40 (Negative) mg/dL Urine Blood Negative (Negative) Urine Nitrite Negative (Negative) Ur Leukocyte Esterase Negative (Negative) Urine RBC 0-2 (0-2) /HPF Urine WBC 0-5 (0-5) /HPF Ur Squamous Epith Cells 11-20 (0-2) /HPF Urine Bacteria None Seen (None Seen) Epithelial Casts Present Hyaline Casts 6-10 (0-2) /LPF Granular Casts Present Discharge Plan Discharge Clinical Impression: Weakness, Acute dehydration, Diarrhea Patient Disposition: Home, Self-Care Instructions: Dehydration (ED), Acute Diarrhea (ED), Weakness (ED), Nutrition Tips for Relief of Diarrhea (ED) Additional Instructions: Please call to follow up with your doctor. You can take zofran as needed for nausea. If you have any other concerns please return to the ED. Prescriptions: New ondansetron 4 mg tablet,disintegrating 4 mg PO Q6H Qty: 14 0RF No Action Multaq 400 mg tablet 400 mg PO BID 90 Days Qty: 180 2RF diltiazem HCl [Cardizem CD] 120 mg capsule,extended release 24hr 120 mg PO DAILY Qty: 30 5RF rosuvastatin [Crestor] 10 mg tablet 10 mg PO DAILY 90 Days Qty: 90 1RF Eliquis 5 mg tablet 5 mg PO BID Qty: 60 5RF prednisone 5 mg tablet 5 mg PO DAILY Qty: 30 11RF Hold Instructions: resume after completion of prednisone taper loratadine 10 mg tablet 10 mg PO DAILY 90 Days Qty: 90 3RF Nucala 100 mg/mL syringe 100 mg subcut Q4W Qty: 1 11RF ondansetron 4 mg tablet,disintegrating 4 mg PO Q6H PRN (Reason: nausea and vomiting) ondansetron 4 mg tablet,disintegrating 4 mg PO Q8H PRN (Reason: nausea and vomiting) Qty: 14 0RF Incruse Ellipta 62.5 mcg/actuation blister with device 1 inh inhalation DAILY levothyroxine 25 mcg tablet 25 mcg PO DAILY@0630 ipratropium-albuterol 0.5 mg-3 mg(2.5 mg base)/3 mL solution for nebulization 3 ml inhalation QID PRN (Reason: Shortness Of Breath) omeprazole 20 mg capsule,delayed release(DR/EC) 20 mg PO DAILY@0630 aripiprazole 5 mg tablet 5 mg PO DAILY albuterol sulfate 90 mcg/actuation HFA aerosol inhaler 2 inh inhalation Q6H PRN (Reason: shortness of breath or wheezing) 30 Days Qty: 18 12RF escitalopram oxalate 10 mg tablet 10 mg PO DAILY
[2022-09-17 11:11] LABS: MANUAL DIFF FLAG NO
[2022-09-17 11:13] LABS: Basophils Percent Auto 0.2 % (0-2); Hematocrit 40.7 % (37.0-47.0); Hemoglobin 12.3 g/dl (12.0-16.0); Imm Gran Abs Auto 0.01 X10*3/uL (0.00-0.03); Imm Gran Pct Auto 0.2 % (0.0-0.4); Lymphocytes Absolute Auto 1.1 X10*3/uL (1.2-4.9); Lymphocytes Percent Auto 23.7 % (20-40); Mean Corpuscular HGB Conc 30.2 g/dl (31.0-35.0); Mean Corpuscular Hemoglobin 25.3 pg (27.0-33.0); Mean Corpuscular Volume 83.7 fL (80.0-98.0); Mean Platelet Volume 9.1 fL (9.4-12.3); Monocytes Absolute Auto 0.3 X10*3/uL (0.1-1.2); Monocytes Percent Auto 6.4 % (2-11); Neutrophils Absolute Auto 3.3 x10*3/uL (2.0-8.3); Neutrophils Percent Auto 69.5 % (45-73); Platelet Count 266 X10*3/uL (160-400); Red Blood Count 4.86 X10*6/uL (4.20-5.50); Red Cell Distribution Width 15.6 % (11.0-16.0); White Blood Count 4.7 X10*3/uL (4.8-10.8)
[2022-09-17] MEDS: 0.9 % Sodium Chloride 1,000 ML 999 ML IV (11:13)
[2022-09-17] MEDS: Magnesium Hydrox/Alum Hydrox 30 ML ORAL.SUSP PO (11:19)
[2022-09-17] MEDS: Famotidine/PF 20 MG/2 ML VIAL IVPUSH (11:19)
[2022-09-17] MEDS: Dicyclomine HCl 10 MG CAPSULE PO (11:19)
[2022-09-17] MEDS: ondansetron HCL 4 MG/2 ML VIAL IVPUSH (11:19)
[2022-09-17 11:41] LABS: Alanine Aminotransferase 19 U/L (0-31); Albumin Level 4.2 g/dL (3.5-5.0); Alkaline Phosphatase 63 U/L (39-117); Anion Gap 18 (12-20); Aspartate Amino Transferase 29 U/L (5-31); Bilirubin Direct 0.2 mg/dL (0.0-0.5); Blood Urea Nitrogen 22 mg/dL (9-16); Calcium 8.9 mg/dL (8.4-10.2); Carbon Dioxide 24 mmol/L (22-29); Chloride 105 mmol/L (96-108); Estimated Glomerular Filt Rate 32; Glucose Random 96 mg/dL (60-115); Lipase 37 U/L (8-78); Potassium 4.5 mmol/L (3.3-5.1); Sodium 142 mmol/L (135-145); Total Protein 7.1 g/dL (6.5-8.0)
[2022-09-17 12:00] LABS: Bilirubin Total 0.6 mg/dL (0.0-1.0)
[2022-09-17 13:45] VITALS: BP 143/60; PULSE 81; RESP 16; TEMP 37.4; O2SAT 98
[2022-09-17 14:10] LABS: Appearance Urine Cloudy; Color Urine Dark Yellow; Glucose Urine UA Negative (Negative); Leukocyte Esterase Urine Negative (Negative); Nitrite Urine Negative (Negative); PH 5.5 (5.0-9.0); Specific Gravity - Urine 1.025 (1.005-1.025); UMIC TRIGGER UACC YES; Urine Blood Negative (Negative); Urine Ketones 40 mg/dL (Negative); Urine Protein 100 (2+) mg/dL (Neg-Trace)
[2022-09-17 14:20] LABS: Bacteria Urine None Seen (None Seen); Epith (RTE) Cast Present; Granular Casts Urine Present; RBC Urine 0-2 /HPF (0-2); WBC Urine 0-5 /HPF (0-5)
--- NOTE | 2022-09-17 14:44 | PC.NURSE ---
pt resting no episodes of diarrhea,she is tolerating po intake. nausea still present per patient
[2022-09-17 15:17] LABS: COVID-19 Test Positive (Negative); IDNOW Serial# 16C4AD1C
== END 2022-09-17 17:19 | disposition home or self-care (01) ==
PROVIDERS: Emergency Provider Student in an Organized Health Care Education/Training Program; PCP Internal Medicine
DX: U07.1 COVID-19 (principal); E86.0 Dehydration; R19.7 Diarrhea, unspecified
CPT/HCPCS: 36415; 80048; 80076; 81001; 83690; 85025; 87635; 96361; 96374; 96375; 99283; 99284; J2405

== ENCOUNTER 2022-10-13 10:55 | Outpatient (REF) | payer OTHER, SELFPAY | END 2022-10-13 10:56 | disposition home or self-care (01) | LOC: HO.MDS 10:55 | PROVIDERS: Visit Provider Hospitalist | DX: J45.50 Severe persistent asthma, uncomplicated (principal) | CPT/HCPCS: 96372 ==

== ENCOUNTER 2022-11-10 09:56 | Outpatient (REF) | payer OTHER, SELFPAY | END 2022-11-10 09:57 | disposition home or self-care (01) | LOC: HO.MDS 09:56 | PROVIDERS: Visit Provider Hospitalist | DX: J45.50 Severe persistent asthma, uncomplicated (principal) | CPT/HCPCS: 96372; J2182 ==

== ENCOUNTER 2022-11-29 09:53 | Outpatient (REF) | payer OTHER, SELFPAY ==
--- NOTE | ~2022-11-29 | MM_ITS ---
EXAMINATION: MM SCREENING DIGITAL BREAST TOMOSYNTHESIS, BILATERAL CLINICAL INFORMATION: Screening. Asymptomatic. The lifetime risk of breast cancer based on the Tyrer-Cuzick Model is 3%. COMPARISON: Mammography: November 26, 2021 and studies dating back to May 17, 2014 TECHNIQUE: Digital breast tomosynthesis is performed in both the craniocaudal and mediolateral oblique views along with computer-aided detection (CAD). Synthesized 2D images are generated from the tomosynthesis. FINDINGS: The breasts are heterogeneously dense, which may obscure small masses (ACR BI-RADS breast composition Category c). There are no new significant masses, abnormal calcifications, or other abnormalities. Some stable circumscribed densities are seen bilaterally. MM/MM tomosynthesis screening BI IMPRESSION: No significant changes from prior exam. ASSESSMENT: BI-RADS 1: Negative RECOMMENDATION: Routine annual mammography screening. This patient's information was entered into a reminder system with a target due date for their next mammogram.
== END 2022-11-29 09:54 | disposition home or self-care (01) ==
LOC: HO.MAMMO 09:53
PROVIDERS: PCP Internal Medicine; Visit Provider Internal Medicine
DX: Z12.31 Encounter for screening mammogram for malignant neoplasm of breast (principal)
CPT/HCPCS: 77063; 77067

== ENCOUNTER 2022-12-08 09:54 | Outpatient (REF) | payer OTHER, SELFPAY | END 2022-12-08 09:55 | disposition home or self-care (01) | LOC: HO.MDS 09:54 | PROVIDERS: Visit Provider Hospitalist | DX: J45.50 Severe persistent asthma, uncomplicated (principal) | CPT/HCPCS: 96372 ==

== ENCOUNTER 2022-12-24 10:07 | Emergency (ER) | payer OTHER, SELFPAY ==
[2022-12-24 10:20] VITALS: BP 196/80; PULSE 87; RESP 16; TEMP 36.2; O2SAT 98; BMI 30.4
--- NOTE | 2022-12-24 10:43 | ED_ITS ---
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 Patient reports that she has had a burning left sided back pain that radiates into her left thigh. Patient reports that her back pain worsens with movement, ambulation and with palpation. She also admits to having numbness into her left first three toes. Denies any trauma, injury, heavy lifti ng or falls. She reports that she also has had some dysuria and urinary frequency. Denies hematuria. Hx of urinary incontinence for many years which is unchanged. Denies saddle anesthesias, or bowel incontinence. No fevers, chills, abdominal pain, nausea, vomiting, diarrhea, chest pain or palpitations. She has taken tylenol, which has provided her with no relief. No other complaints or concerns at this time. MD elicited complaint: back pain Pertinent past history: incontinence (chronic) Onset (ago): week(s) Timing: constant Severity: moderate Similar Symptoms Previously: No Quality: aching Location: lumbar spine, left flank and left lower back Radiation: left upper leg Exacerbating factors: movement and sitting upright Relieving factors: immobilization Context: unknown Associated symptoms: increased urinary frequency and dysuria Treatments prior to arrival: acetaminophen Work related injury: No Related Data Home Medications Medication Instructions Recorded Confirmed omeprazole 20 mg capsule,delayed 20 mg PO DAILY@0630 02/09/22 10/18/22 release escitalopram oxalate 10 mg tablet 10 mg PO DAILY 05/17/22 10/18/22 aripiprazole 5 mg tablet 5 mg PO DAILY 07/09/22 10/18/22 ipratropium 0.5 mg-albuterol 3 mg 3 ml inhalation QID PRN Shortness 07/25/22 10/18/22 (2.5 mg base)/3 mL nebulization Of Breath soln umeclidinium 62.5 mcg/actuation 1 inh inhalation DAILY 07/25/22 10/18/22 blister powder for inhalation (Incruse Ellipta) Previous Rx's Medication Instructions Recorded diltiazem HCl 120 mg 120 mg PO DAILY #30 caps 03/15/22 capsule,extended release 24 hr (Cardizem CD) apixaban 5 mg tablet (Eliquis) 5 mg PO BID #60 tabs 07/07/22 albuterol sulfate 90 mcg/actuation 2 inh inhalation Q6H PRN shortness 07/09/22 aerosol inhaler of breath or wheezing 30 days #18 grams prednisone 5 mg tablet 5 mg PO DAILY #30 tabs 07/28/22 loratadine 10 mg tablet 10 mg PO DAILY 90 days #90 tabs 09/04/22 mepolizumab 100 mg/mL subcutaneous 100 mg subcut Q4W #1 mL 09/06/22 syringe (Nucala) ondansetron 4 mg disintegrating 4 mg PO Q8H PRN nausea and 09/13/22 tablet vomiting #14 tabs levothyroxine 25 mcg tablet 25 mcg PO DAILY 90 days #90 tabs 10/04/22 dronedarone 400 mg tablet (Multaq) 400 mg PO BID 90 days #180 tabs 10/12/22 rosuvastatin 10 mg tablet (Crestor) 10 mg PO DAILY 90 days #90 tabs 10/13/22 cyclobenzaprine 5 mg tablet 5 mg PO TID PRN muscle spasm #10 12/24/22 tabs lidocaine 5 % topical patch 1 patch topical DAILY #30 ea 12/24/22 (Lidoderm) Allergies Allergy/AdvReac Type Severity Reaction Status Date / Time sulfamethoxazole Allergy Severe Rash Verified 10/18/22 10:55 [From Bactrim] trimethoprim [From Bactrim] Allergy Severe Rash Verified 10/18/22 10:55 levofloxacin [From LEVAQUIN] Allergy Intermediate RASH SOB, Verified 10/18/22 10:55 DIZZYNESS tramadol AdvReac Severe abdominal Verified 10/18/22 10:55 pain, vomiting acetaminophen AdvReac Intermediate vomitting Verified 10/18/22 10:55 [Tylenol-Codeine #3] atorvastatin [Lipitor] AdvReac Intermediate nausea Verified 10/18/22 10:55 codeine [CODEINE] AdvReac Intermediate NAUSEA & Verified 10/18/22 10:55 VOMITING morphine [MORPHINE] AdvReac Intermediate NAUSEA & Verified 10/18/22 10:55 VOMITING pravastatin AdvReac Intermediate myalgia Verified 10/18/22 10:55 rosuvastatin AdvReac Mild myalgia Verified 10/18/22 10:55 Review of Systems Review of Systems: Yes all other systems are reviewed and are negative Constitutional: Constitutional: Reports no additional constitutional complaints, Denies body ache(s), Denies chills, Denies fever(s), Denies headache(s) and Denies weakness Eyes: Eyes: Reports no additional eye complaints and Denies change in vision ENT: Reports system reviewed and no additional complaints, except as documented, Denies dizziness, Denies headache(s), Denies nasal congestion, Denies nasal discharge and Denies neck pain Cardiovascular: Cardiovascular: Reports no additional cardiovascular complaints, Denies chest pain, Denies leg edema and Denies dyspnea Respiratory: Respiratory: Reports no additional respiratory complaints, Denies cough and Denies dyspnea Gastrointestinal: Gastrointestinal: Reports no additional gastrointestinal complaints, Denies abdominal pain, Denies diarrhea, Denies nausea and Denies vomiting Genitourinary: Genitourinary: Reports no additional female genitourinary complaints, Reports dysuria and Reports urinary incontinence (chronic) Musculoskeletal: Musculoskeletal: Reports no additional musculoskeletal complaints, Reports back pain, Denies arthralgias, Denies joint swelling, Denies neck pain, Reports numbness and Reports tingling Integumentary/Breasts: Skin/Breast: Reports system reviewed and no additional complaints, except as docu and Denies rash Neurologic: Reports system reviewed and no additional complaints, except as documented, Denies Abnormal speech present, Denies dizziness, Denies headache(s), Reports numbness, Reports tingling and Denies weakness [facility] Past Medical History Attestation statement: The following information was validated with the patient. Source: old records reviewed and nursing notes reviewed Medical History Asthma Asthma-COPD overlap syndrome Breast pain, left Chronic allergic rhinitis Dyslipidemia Eosinophilia GERD (gastroesophageal reflux disease) HTN (hypertension) Hypothyroidism Mild recurrent major depression Osteoarthritis of knees, bilateral Osteopenia (~2007) Paroxysmal atrial fibrillation (~01/2021) Pneumonia Polyarthralgia Postmenopausal Steroid dependent Tubular adenoma of colon (~2009) Surgical History History of colonoscopy History of D&C (~2002) History of knee surgery History of nasal polypectomy (~2007) History of right breast biopsy (~1998) History of shoulder surgery (~2006) History of tubal ligation Family History Family History Father Medical history unknown Mother Alzheimer disease Daughter Lupus Other Arthritis Social History Social History Household Members: None Housing: House Are you a primary childcare center administrator to a significant other at home: No Do you presently have visiting nurse or other home services: Yes Alcohol intake: never Patient Tobacco Use Status: Former Tobacco user Tobacco use type: Cigarette Smoked in Last 30 Days: No e-Cigarette/Vaping Use: Never Used Second Hand Smoke Exposure: No Use of substances other than those prescribed or required for medical reasons: No Advance Directives: No Advance Directives Information Provided: Yes Advance Directives Date on File: 11/10/20 service: No Current occupational status: disabled Cognitive needs: Yes (cane) Hearing needs: No Vision needs: Yes (glasses) Physical Exam Vital Signs: Vital Signs: Last Vital Signs Temp 97.9 F 12/24/22 11:50 Pulse 78 12/24/22 11:50 Resp 18 12/24/22 11:50 BP 159/79 H 12/24/22 11:50 Pulse Ox 98 12/24/22 11:50 O2 Del Method Room Air 12/24/22 11:50 BMI result Body Mass Index 30.4 Const: General: cooperative, healthy appearing, comfortable and no acute distress Orientation/consciousness: patient oriented x3 Limitations: no limitations HEENT: Head: Yes normal to inspection Ears: hearing grossly normal pilar aterally General nose exam: Normal external nose present Face and sinus: Yes normal facial exam Mouth: Normal oral and palatal mucosa present Throat: Yes posterior oropharynx normal Eyes: General: appearance normal, both eyes and all related structures Pupils: Equal, round and reactive pupils present Neck: Neck: Yes normal visual inspection Chest: Chest palpation & inspection: normal inspection of the chest Resp: Effort & Inspection: normal respiratory effort Auscultation: clear to auscultation bilaterally Cardio: Rate: regular rate Rhythm: regular rhythm Peripheral pulses: Peripheral pulses 2+ throughout GI: Inspection: Yes normal to inspection Palpation (GI): Soft to palpation and nontender Auscultation: normal bowel sounds Back/Spine/Pelvis: Other: No midline spine tenderness to palpation. TTP overlying the left SI joint and left lumbar paraspinous muscles into the left buttock. +STL on the right. Distal sensation intact. Distal pulses 2+. Ambulatory with antalgic gait. Strength is 5/5 in lower extremities bilaterally. Mild right sided thoracic paraspinous muscles vs CVA tenderness. No overlying rashes, ecchymosis or edema noted to the back. Pain worsened with flexsion/extension of the spine Thoracic/Lumbar Spine: thoracic and lumbar spine normal to inspection Skin: General skin exam: no rashes or lesions noted Neuro: General: patient oriented x3, no focal motor deficits and normal sensation to monofilament Cranial nerves: Yes Equal, round and reactive pupils present Cognition (Neuro): normal cognition Speech: No Abnormal speech present Gait exam (Neuro): Normal gait present Motor exam (neuro): 5/5 motor strength present throughout Deep tendon reflexes (DTR's): Right patellar reflex intensity grade: 2+ and Left patellar reflex intensity grade: 2+ Extrem: General: Yes normal to inspection Course Course Course Narrative: UA shows no signs of infection. Seems more musculoskeletal on exam. Patient up and ambulatory. No neurological deficits or red flag symptoms. Patient will be treated with Tylenol p.r.n., Flexeril low-dose, medicated patches. Recommend she follow up outpatient with primary care doctor. Reviewed worrisome signs and symptoms of when to return to the emergency room. Comfortable plan for discharge home. Medications Administered Discontinued Medications Generic Name Dose Route Start Last Admin Trade Name Randellq PRN Reason Stop Dose Admin Acetaminophen 975 mg 12/24/22 11:59 12/24/22 12:04 Acetaminophen 325 Mg Tablet PO 12/24/22 12:00 975 mg ONCE ONE Administration Medical Decision Making Medical Decision Making [facility] Narrative: 72 yo F with a hx of asthma, hypothyroidism, HTN, A-Fib on Eliquis, CKD, osteopenia, asthma on chronic prednisone, HLD, who presents to the ER for evaluation of atraumatic back pain x 2 weeks. On exam, patient has TTP to left lumbar paraspinous muscles, left SI joint, +STL on the left. No red flag back pain symptoms. Due to dysuria and urinary frequency, and ?left CVA tenderness vs left thoracic paraspinous muscle tenderness, UA ordered. Differential Diagnosis Differential Diagnoses: The differential diagnosis associated with the presentation includes Sciatica, UTI, pylenophritis, nephroliathiasis, cauda equina - unlikely, AAA - unlikely epidrural abscess Lab Data [facility] Lab Attestation statement: I reviewed the patient's lab results. Labs: Lab Results 12/24/22 Range/Units 11:24 Urine Color Yellow Urine Appearance Clear Urine pH 6.5 (5.0-9.0) Ur Specific [place] 1.020 (1.005-1.025) Urine Protein Trace (Neg-Trace) mg/dL Urine Glucose (UA) Negative (Negative) mg/dL Urine Ketones Negative (Negative) mg/dL Urine Blood Negative (Negative) Urine Nitrite Negative (Negative) Ur Leukocyte Esterase Negative (Negative) Chronic Conditions Patient?s care impacted by: Hypertension Discharge Plan Discharge Clinical Impression: Back strain Patient Disposition: Home, Self-Care Instructions: Back Pain (ED) Additional Instructions: Acuna orina no muestra signos de infecci?n. Sin levantar objetos pesados ??ni agacharse. Estiramiento suave. Calor o hielo en el ?caio. Consulte a acuna PCP, ya que es posible que necesite un control adicional de acuna dolor cherri paciente ambulatorio. Contin?e con Tylenol. [place] los medicamentos adicionales seg?n lo prescrito. Your urine shows no signs of infection. No heavy lifting or bending. Gentle stretching. Heat or ice to the area. See your PCP as you may need further management of your pain outpatient. Continue tylenol. Take the additional medications as prescribed. Prescriptions: New lidocaine [Lidoderm] 5 % adhesive patch,medicated 1 patch topical DAILY Qty: 30 0RF Rx Instructions: leave on most painful area for up to 12 hrs cyclobenzaprine 5 mg tablet 5 mg PO TID PRN (Reason: muscle spasm) Qty: 10 0RF No Action diltiazem HCl [Cardizem CD] 120 mg capsule,extended release 24hr 120 mg PO DAILY Qty: 30 5RF Eliquis 5 mg tablet 5 mg PO BID Qty: 60 5RF prednisone 5 mg tablet 5 mg PO DAILY Qty: 30 11RF Hold Instructions: resume after completion of prednisone taper loratadine 10 mg tablet 10 mg PO DAILY 90 Days Qty: 90 3RF Nucala 100 mg/mL syringe 100 mg subcut Q4W Qty: 1 11RF levothyroxine 25 mcg tablet 25 mcg PO DAILY 90 Days Qty: 90 1RF Multaq 400 mg tablet 400 mg PO BID 90 Days Qty: 180 2RF rosuvastatin [Crestor] 10 mg tablet 10 mg PO DAILY 90 Days Qty: 90 1RF ondansetron 4 mg tablet,disintegrating 4 mg PO Q8H PRN (Reason: nausea and vomiting) Qty: 14 0RF Incruse Ellipta 62.5 mcg/actuation blister with device 1 inh inhalation DAILY ipratropium-albuterol 0.5 mg-3 mg(2.5 mg base)/3 mL solution for nebulization 3 ml inhalation QID PRN (Reason: Shortness Of Breath) omeprazole 20 mg capsule,delayed release(DR/EC) 20 mg PO DAILY@0630 aripiprazole 5 mg tablet 5 mg PO DAILY albuterol sulfate 90 mcg/actuation HFA aerosol inhaler 2 inh inhalation Q6H PRN (Reason: shortness of breath or wheezing) 30 Days Qty: 18 12RF escitalopram oxalate 10 mg tablet 10 mg PO DAILY Referrals: Angelique Li MD [Primary Care Provider] - 5 days Interventions: ED Discharge Assessment Last Done: 12/24/22 12:58 Discharge Date/Time: 12/24/22 12:59 Print Language: Czech
[2022-12-24 11:50] VITALS: BP 159/79; PULSE 78; RESP 18; TEMP 36.6; O2SAT 98
[2022-12-24] MEDS: Acetaminophen 325 MG TABLET 975 MG PO (12:04)
[2022-12-24 12:18] LABS: Appearance Urine Clear; Color Urine Yellow; Glucose Urine UA Negative (Negative); Leukocyte Esterase Urine Negative (Negative); Nitrite Urine Negative (Negative); PH 6.5 (5.0-9.0); Urine Blood Negative (Negative); Urine Ketones Negative (Negative); Urine Protein Trace mg/dL (Neg-Trace)
== END 2022-12-24 12:59 | disposition home or self-care (01) ==
PROVIDERS: Nurse Practitioner Family; Emergency Provider Student in an Organized Health Care Education/Training Program; PCP Internal Medicine
DX: S39.012A Strain of muscle, fascia and tendon of lower back, initial encounter (principal); I48.91 Unspecified atrial fibrillation; I10 Essential (primary) hypertension; X58.XXXA Exposure to other specified factors, initial encounter; Y93.9 Activity, unspecified; Y92.9 Unspecified place or not applicable; Y99.9 Unspecified external cause status; Z79.01 Long term (current) use of anticoagulants; Z79.899 Other long term (current) drug therapy; Z87.891 Personal history of nicotine dependence
CPT/HCPCS: 81003; 99283; 99284

== ENCOUNTER 2023-01-05 09:55 | Outpatient (REF) | payer OTHER, SELFPAY | END 2023-01-05 09:56 | disposition home or self-care (01) | LOC: HO.MDS 09:55 | PROVIDERS: Visit Provider Hospitalist | DX: J45.50 Severe persistent asthma, uncomplicated (principal) | CPT/HCPCS: 96372 ==

== ENCOUNTER 2023-02-01 09:49 | Outpatient (REF) | payer OTHER, SELFPAY | END 2023-02-01 09:50 | disposition home or self-care (01) | LOC: HO.MDS 09:49 | PROVIDERS: Visit Provider Hospitalist | DX: J45.50 Severe persistent asthma, uncomplicated (principal) | CPT/HCPCS: 96372; J2182 ==

== ENCOUNTER 2023-02-01 10:21 | Outpatient (REF) | payer OTHER, SELFPAY ==
--- NOTE | ~2023-02-01 | XR_ITS ---
EXAMINATION: XR HIP, LEFT CLINICAL INFORMATION: Pain. COMPARISON: None available. TECHNIQUE: Two views of the left hip. FINDINGS: The left hip joint space is maintained normal. No bony erosive changes or periarticular spurring seen. No acute fracture or dislocation. There is soft tissue calcification lateral to the greater trochanter likely old muscle injury or contusion. Cannot exclude calcific bursitis. XR/XR hip LT min 2V IMPRESSION: Soft tissue calcification lateral to the greater trochanter likely old injury or calcific bursitis.
== END 2023-02-01 10:22 | disposition home or self-care (01) ==
LOC: HO.XRAY 10:21
PROVIDERS: PCP Internal Medicine; Visit Provider Internal Medicine
DX: M25.552 Pain in left hip (principal)
CPT/HCPCS: 73502

== ENCOUNTER 2023-02-17 09:56 | Outpatient (REF) | payer OTHER, SELFPAY ==
[2023-02-17 14:27] LABS: Anion Gap 16 (12-20); Blood Urea Nitrogen 20 mg/dL (9-16); Calcium 9.7 mg/dL (8.4-10.2); Carbon Dioxide 26 mmol/L (22-29); Chloride 105 mmol/L (96-108); Estimated Glomerular Filt Rate 37; Glucose Random 110 mg/dL (60-115); Potassium 4.8 mmol/L (3.3-5.1); Sodium 142 mmol/L (135-145)
[2023-02-17 14:28] LABS: Protein/Creatinine Ratio, Ur 0.23 (<0.2); Total Protein Urine Random 12 mg/dL (<12)
[2023-02-22 22:42] LABS: Prot Elec - Albumin 4.7 g/dL (3.8-4.8); Prot Elec - Alpha1 0.4 g/dL (0.2-0.3); Prot Elec - Alpha2 0.9 g/dL (0.5-0.9); Prot Elec - Beta 1 0.5 g/dL (0.4-0.6); Prot Elec - Beta 2 0.4 g/dL (0.2-0.5); Prot Elec - Gamma 1.1 g/dL (0.8-1.7); Prot Elec - Total Protein 8.1 g/dL (6.1-8.1)
== END 2023-02-17 09:57 | disposition home or self-care (01) ==
LOC: HO.LAB 09:56
PROVIDERS: Absent Provider Internal Medicine Hypertension Specialist; PCP Internal Medicine; Referring Provider Internal Medicine; Visit Provider Internal Medicine Cardiovascular Disease
DX: N18.30 Chronic kidney disease, stage 3 unspecified (principal)
CPT/HCPCS: 36415; 80048; 84156; 84165; 93005

== ENCOUNTER 2023-03-01 08:57 | Outpatient (REF) | payer OTHER, SELFPAY | END 2023-03-01 08:58 | disposition home or self-care (01) | LOC: HO.MDS 08:57 | PROVIDERS: Visit Provider Hospitalist | DX: J45.50 Severe persistent asthma, uncomplicated (principal) | CPT/HCPCS: 96372 ==

== ENCOUNTER 2023-03-28 08:56 | Outpatient (REF) | payer OTHER, SELFPAY | END 2023-03-28 08:57 | disposition home or self-care (01) | LOC: HO.MDS 08:56 | PROVIDERS: PCP Internal Medicine; Visit Provider Hospitalist | DX: J45.50 Severe persistent asthma, uncomplicated (principal) | CPT/HCPCS: 96372 ==

== ENCOUNTER → 2023-04-01 13:51 | Outpatient (BNVA) | payer OTHER, SELFPAY | PROVIDERS: Visit Provider Hospitalist | DX: J45.50 Severe persistent asthma, uncomplicated (principal); J82.83 Eosinophilic asthma; I48.0 Paroxysmal atrial fibrillation; J30.9 Allergic rhinitis, unspecified; Z79.60 Long term (current) use of unspecified immunomodulators and immunosuppressants | CPT/HCPCS: 99212 ==

== ENCOUNTER 2023-04-25 10:25 | Outpatient (REF) | payer OTHER, SELFPAY | END 2023-04-25 10:26 | disposition home or self-care (01) | LOC: HO.MDS 10:25 | PROVIDERS: Visit Provider Hospitalist | DX: J45.50 Severe persistent asthma, uncomplicated (principal) | CPT/HCPCS: 96372; J2182 ==

== ENCOUNTER → 2023-05-19 09:20 | Outpatient (BNVA) | payer OTHER, SELFPAY | PROVIDERS: PCP Internal Medicine; Referring Provider Internal Medicine; Visit Provider Internal Medicine Cardiovascular Disease ==

== ENCOUNTER 2023-05-27 09:57 | Outpatient (REF) | payer OTHER, SELFPAY | END 2023-05-27 09:58 | disposition home or self-care (01) | LOC: HO.MDS 09:57 | PROVIDERS: Visit Provider Hospitalist | DX: J45.50 Severe persistent asthma, uncomplicated (principal) | CPT/HCPCS: 96372 ==

== ENCOUNTER 2023-07-04 11:59 | Outpatient (REF) | payer OTHER, SELFPAY | END 2023-07-04 12:00 | disposition home or self-care (01) | LOC: HO.MDS 11:59 | PROVIDERS: Visit Provider Hospitalist | DX: J45.50 Severe persistent asthma, uncomplicated (principal) | CPT/HCPCS: 96372 ==

== ENCOUNTER 2023-07-15 21:01 | Emergency (ER) | payer OTHER, SELFPAY ==
--- NOTE | ~2023-07-15 | CT_ITS ---
EXAMINATION: CT ABDOMEN AND PELVIS WITHOUT CONTRAST CLINICAL INFORMATION: Pain. COMPARISON: None available. TECHNIQUE: Multidetector volumetric imaging was performed from the superior aspect of the liver through the pubic symphysis. Sagittal and coronal reformatted images were obtained on the technologist's workstation. This CT examination was performed using dose optimization techniques as appropriate, variously including the following: *Automated exposure control *Adjustment of mA and/or kV according to patient size (this includes techniques or standardized protocols for targeted exams where dose is matched to indication/reason for exam; i.e. extremities or head) *Use of iterative reconstruction technique DLP: 636 mGy-cm FINDINGS: LUNG BASES: The visualized lung bases are unremarkable. LIVER, GALLBLADDER, AND BILIARY TREE: The liver is normal in size, shape, and attenuation. No focal hepatic lesion or biliary ductal dilatation is present. The gallbladder is unremarkable with no evidence of radiopaque gallstones, gallbladder wall thickening, or obvious pericholecystic inflammatory changes. PANCREAS: Unremarkable. SPLEEN: Unremarkable. ADRENAL GLANDS: Unremarkable. KIDNEYS AND URETERS: The kidneys are normal in size, shape, and attenuation. No hydronephrosis, hydroureter, or calculi seen. No perinephric stranding. There is a 1.8 cm cyst midpole left kidney. BLADDER: Unremarkable. GASTROINTESTINAL TRACT: The small and large bowel are unremarkable. The appendix is unremarkable. ABDOMINAL WALL: There is a small umbilical hernia containing fat. LYMPH NODES: Normal. VASCULAR: There is atherosclerotic plaque of the abdominal aorta and proximal iliac vessels. PELVIC VISCERA: Multiple uterine fibroids are noted some of which are partially calcified. OSSEOUS STRUCTURES: Unremarkable. CT/CT abdomen pelvis wo IV con IMPRESSION: No acute intra-abdominal process. Fibroid uterus. Fleischner guidelines were followed.
[2023-07-15 21:03] VITALS: BP 180/90; PULSE 88; O2SAT 98
[2023-07-15 21:22] VITALS: BP 173/80; BP 180/90; PULSE 86; PULSE 88; RESP 14; TEMP 36.4; O2SAT 97; O2SAT 98; BMI 30.1
[2023-07-15 21:43] LABS: MANUAL DIFF FLAG NO
[2023-07-15 21:50] LABS: Appearance Urine Clear; Color Urine Yellow; Glucose Urine UA Negative (Negative); Leukocyte Esterase Urine Negative (Negative); Nitrite Urine Negative (Negative); UMIC TRIGGER UACC YES; Urine Blood Small (1+) (Negative); Urine Ketones Negative (Negative); Urine Protein Trace mg/dL (Neg-Trace)
--- NOTE | 2023-07-15 21:52 | ED_ITS ---
HPI - Female Genitourinary General Chief complaint: Urogenital-Female Stated complaint: Bladder pain. L flank wraps around lower abd quad Time Seen by Provider: 07/15/23 21:35 Source: patient, EMS, RN notes reviewed and old records reviewed Mode of arrival: EMS Limitations: no limitations History of Present Illness HPI Narrative: 72 year old female with pmhx significant for polyarthralgia, MDD, asthma, GERD, hypothyroidism, paroxysmal atrial fibrillation, HTN, stage 3 CKD presenting to the ED today via EMS with left flank pain x3 days. She admits the pain began acutely while at rest three days ago and has been constant since onset. She describes it as sharp in nature with radiation into the left lower abdomen/ groin. No radiation into lower extremities. No difficulty ambulating. Denies history of renal stones. Last BM this morning. Deneis fever, chills, TRIPLETT, dizziness, back pain, chest pain or SOB, N/V, diarrhea, constipation, dysuira, hematuria, freguency/urgency, or vaginal discharge. Denies IVDU. Denies saddle paresthesias or bowel/bladder incontinence or retention. She still makes urine and is not on dialysis. Related Data Home Medications Medication Instructions Recorded Confirmed escitalopram oxalate 10 mg tablet 10 mg PO DAILY 05/17/22 03/21/23 aripiprazole 5 mg tablet 5 mg PO DAILY 07/09/22 03/21/23 ipratropium 0.5 mg-albuterol 3 mg 3 ml inhalation QID PRN Shortness 07/25/22 03/21/23 (2.5 mg base)/3 mL nebulization Of Breath soln Previous Rx's Medication Instructions Recorded albuterol sulfate 90 mcg/actuation 2 inh inhalation Q6H PRN shortness 07/09/22 aerosol inhaler of breath or wheezing 30 days #18 grams loratadine 10 mg tablet 10 mg PO DAILY 90 days #90 tabs 09/04/22 mepolizumab 100 mg/mL subcutaneous 100 mg subcut Q4W #1 mL 09/06/22 syringe (Nucala) dronedarone 400 mg tablet (Multaq) 400 mg PO BID 90 days #180 tabs 10/12/22 lidocaine 5 % topical patch 1 patch topical DAILY #30 ea 12/24/22 (Lidoderm) lift recliner #1 ea 01/08/23 diltiazem HCl 120 mg 120 mg PO DAILY 90 days #90 caps 01/18/23 capsule,extended release 24 hr (Cardizem CD) losartan 25 mg tablet 25 mg PO DAILY 90 days #90 tabs 02/01/23 umeclidinium 62.5 mcg/actuation 1 inh inhalation DAILY #30 ea 02/02/23 blister powder for inhalation (Incruse Ellipta) famotidine 20 mg tablet 20 mg PO BEDTIME 90 days #90 tabs 03/21/23 fluocinolone acetonide oil 0.01 % 5 drp otic (ear) left BID 7 days 03/21/23 ear drops (DermOtic Oil) #20 mL polyethylene glycol 3350 17 17 g PO DAILY PRN constipation 30 03/21/23 gram/dose oral powder (Miralax) days #119 grams rosuvastatin 10 mg tablet (Crestor) 10 mg PO DAILY 90 days #90 tabs 04/24/23 amoxicillin 500 mg tablet 500 mg PO Q12H 7 days #14 tabs 06/27/23 apixaban 5 mg tablet (Eliquis) 5 mg PO BID #60 tabs 06/27/23 prednisone 5 mg tablet 5 mg PO DAILY #30 tabs 06/27/23 levothyroxine 25 mcg tablet 25 mcg PO DAILY 90 days #90 tabs 07/13/23 tamsulosin 0.4 mg capsule (Flomax) 0.4 mg PO DAILY 14 days #14 caps 07/15/23 Allergies Allergy/AdvReac Type Severity Reaction Status Date / Time sulfamethoxazole Allergy Severe Rash Verified 04/01/23 14:10 [From Bactrim] trimethoprim [From Bactrim] Allergy Severe Rash Verified 04/01/23 14:10 levofloxacin [From LEVAQUIN] Allergy Intermediate RASH SOB, Verified 04/01/23 14:10 DIZZYNESS tramadol AdvReac Severe abdominal Verified 04/01/23 14:10 pain, vomiting acetaminophen AdvReac Intermediate vomitting Verified 04/01/23 14:10 [Tylenol-Codeine #3] atorvastatin [Lipitor] AdvReac Intermediate nausea Verified 04/01/23 14:10 codeine [CODEINE] AdvReac Intermediate NAUSEA & Verified 04/01/23 14:10 VOMITING morphine [MORPHINE] AdvReac Intermediate NAUSEA & Verified 04/01/23 14:10 VOMITING pravastatin AdvReac Intermediate myalgia Verified 04/01/23 14:10 rosuvastatin AdvReac Mild myalgia Verified 04/01/23 14:10 Review of Systems 2 Review of Systems: Constitutional: No fever, chills, fatigue, night sweats, weight changes ENT/Mouth: No ear pain, hearing loss, nasal congestion, sinus pain, rhinorrhea, sore throat Eyes: No eye pain, swelling, redness, vision changes, discharge Cardio: No chest pain, palpitations, BELL, orthopnea, peripheral edema Pulm: No SOB, cough, sputum, wheezing, dyspnea, hemoptysis GI: No nausea, vomiting, hematemesis, abdominal pain, diarrhea, constipation, hematochezia, melena : No irregular bleeding, dysuria, frequency, urgency, hesitancy, hematuria, + left flank pain, No urinary flow changes, urinary incontinence or retention MSK: No back pain, neck pain, joint pain, myalgias Skin: No lesions, rashes Neuro: No weakness, numbness, paresthesias, LOC, dizziness, headache All other systems reviewed and are negative. [facility] Past Medical History Attestation statement: The following information was validated with the patient. Source: old records reviewed and nursing notes reviewed Medical History Osteoarthritis of knees, bilateral Mild recurrent major depression Polyarthralgia Osteopenia (~2007) Tubular adenoma of colon (~2009) Breast pain, left Postmenopausal Asthma-COPD overlap syndrome GERD (gastroesophageal reflux disease) HTN (hypertension) Paroxysmal atrial fibrillation (~01/2021) Dyslipidemia Hypothyroidism Pneumonia Eosinophilia Steroid dependent Chronic allergic rhinitis Asthma Surgical History History of right breast biopsy (~1998) History of colonoscopy History of D&C (~2002) History of tubal ligation History of shoulder surgery (~2006) History of nasal polypectomy (~2007) History of knee surgery Family History Family History Father Medical history unknown Mother Alzheimer disease Daughter Lupus Other Arthritis Social History Social History Household Members: None Housing: House Are you a primary home health care provider to a significant other at home: No Do you presently have visiting nurse or other home services: Yes Alcohol intake: never Patient Tobacco Use Status: Former Tobacco user Tobacco use type: Cigarette Smoked in Last 30 Days: No e-Cigarette/Vaping Use: Never Used Second Hand Smoke Exposure: No Use of substances other than those prescribed or required for medical reasons: No Advance Directives: No Advance Directives Information Provided: Yes Advance Directives Date on File: 11/10/20 Patient : No service: No Current occupational status: disabled Cognitive needs: Yes (cane) Hearing needs: No Vision needs: Yes (glasses) Physical Exam 2 Vital Signs: Vital Signs: Last Vital Signs Temp 97.6 F 07/15/23 21:22 Pulse 75 07/15/23 23:34 Resp 18 07/15/23 23:34 BP 136/62 07/15/23 23:34 Pulse Ox 97 07/15/23 23:34 O2 Del Method Room Air 07/15/23 23:34 BMI result Body Mass Index 30.1 Vital signs stable. Afebrile. Const: General: cooperative, comfortable, no acute distress, alert and awake; No diaphoretic Nutritional Appearance: obese Orientation/consciousness: p atient oriented x3 Limitations: no limitations HEENT: Head: Yes normal to inspection Ears: hearing grossly normal bilaterally General nose exam: Normal external nose present Mouth: Normal oral and palatal mucosa present and moist mucous membranes Eyes: General: appearance normal, both eyes and all related structures C onjunctivae: conjunctivae normal Sclerae: sclerae normal Pupils: Equal, round and reactive pupils present EOM: EOMs intact bilaterally Neck: Neck: Yes normal visual inspection, Yes no lymphadenopathy, Yes no meningeal signs and Yes no JVD Resp: Effort & Inspection: normal respiratory effort, able to speak in complete sentences and symmetric chest movement Auscultation: clear to auscultation bilaterally, no rales, no rhonchi and no wheezes Cardio: Rate: regular rate Rhythm: regular rhythm Heart sounds: S1 normal heart sound present and S2 normal heart sound present Peripheral pulses: Peripheral pulses 2+ throughout GI: Other: + Abdomen soft, nondistended, mildly ten alexander to palpation of the LLQ without rebound tenderness or guarding. No palpable masses or deformity. No overlying skin changes. Normoactive BS x4. + Rectal exam deferred Inspection: Yes normal to inspection and No abdominal wall ecchymosis P alpation (GI): no pulsatile masses : Other: + Left CVA tenderness General: Yes bladder normal to palpation Bimanual exam- vagina & uterus: bladder normal to palpation Back/Spine/Pelvis: Other: No midline spinous tenderness. No paraspinal muscle tenderness to palpation. No step off deformity. Skin: General skin exam: no rashes or lesions noted Neuro: Other: Strength 5/5 intact throughout.? No saddle anesthesia.? Sensation intact to light touch.? Neurovascular intact distally.? General: patient oriented x3, gait normal, moves all extremities and no meningeal signs Cranial nerves: Yes CN's II-XII intact bilaterally and Yes Equal, round and reactive pupils present Extrem: General: Yes normal to inspection, Yes capillary refill normal and Yes no clubbing, cyanosis or edema Course Course Course Narrative: CBC without leukocytosis. Chemistry with slight hyperkalemia noted to be d/t to hemolysis via lab. There is decreased renal function which appears to be patient's baseline secondary to stage 3 CKD. There are no acute electrolyte abnormalities requiring intervention. CT abdomen/pelvis showing 1.3 cm cyst to the left kidney along with multiple uterine fibroids. There is no evidence of renal stone or hydronephrosis. The scan is otherwise unremarkable. UA showing RBC and blood without evidence of infection. Given patient's left flank pain and blood on UA, presentation is most consistent with renal stone. I discussed workup with patient, who on re-evaluation reports pain improvement with tylenol. I will send 14 day script of flomax to patient's pharmacy. I discussed prompt return precautions including fever/chills, N/V, intractable pain, etc. All questions answered. Patient is agreeable with disposition and stable for discharge. Medications Administered Discontinued Medications Generic Name Dose Route Start Last Admin Trade Name Freq PRN Reason Stop Dose Admin Acetaminophen 975 mg 07/15/23 22:14 07/15/23 23:36 Acetaminophen 325 Mg Tablet PO 07/15/23 22:15 975 mg ONCE ONE Administration Medical Decision Making Medical Decision Making [facility] Narrative: 72 year old female with pmhx significant for polyarthralgia, MDD, asthma, GERD, hypothyroidism, paroxysmal atrial fibrillation, HTN, stage 3 CKD presenting to the ED today via EMS with left flank pain x3 days. Vital signs are stable. The patient is afebrile and not tachycardic. She is nontoxic appearing and in NAD. Exam with RRR, lungs are CTA b/l. There is no midline spinous tenderness or paraspinal muscle tenderness to palpation. No step off deformity. There is left CVAT. Abdomen is soft, nondistended, and mildly tender to palpation of the LLQ without rebound tenderness or guarding. There are normoactive BS throughout. Rectal exam is deferred at this time. There is concern for UTI vs nephrolithiasis vs renal colic. Low suspicion for msk sprain/ strain, fracture, disc herniation, or stenosis. Unlikely pyelonephritis, cholecystitis, appendicitis, cauda equina, cord compression, or epidural abcsess. Presentation not consistent with SBO, ischemic bowel, or acute abdomen. Unlikely ACS. Basic labs and UA obtained in triage. Will order CT abd/pelvis and pain control. Differential Diagnosis Differential Diagnoses: The differential diagnosis associated with the presentation includes As above. Admission/Observation Consideration of admission/observation: Escalation of care including admission/observation considered Lab Data MDM Lab Attestation statement: I reviewed the patient's lab results. As above. 07/15/23 21:36 07/15/23 21:36 Labs: Lab Results 07/15/23 07/15/23 Range/Units 21:27 21:36 WBC 8.4 (4.8-10.8) X10*3/uL RBC 4.30 (4.20-5.50) X10*6/uL Hgb 11.2 L (12.0-16.0) g/dl Hct 37.0 (37.0-47.0) % MCV 86.0 (80.0-98.0) fL MCH 26.0 L (27.0-33.0) pg MCHC 30.3 L (31.0-35.0) g/dl RDW 15.4 (11.0-16.0) % Plt Count 419 H D (160-400) X10*3/uL MPV 9.3 L (9.4-12.3) fL Immature Gran % (Auto) 0.4 (0.0-0.4) % Neut % (Auto) 72.4 (45-73) % Lymph % (Auto) 19.6 L (20-40) % Cavalier % (Auto) 6.9 (2-11) % Eos % (Auto) 0.2 (0-4) % Baso % (Auto) 0.5 (0-2) % Lymph # (Auto) 1.7 (1.2-4.9) X10*3/uL Cavalier # (Auto) 0.6 (0.1-1.2) X10*3/uL Eos # (Auto) 0.0 (0.0-0.4) X10*3/uL Baso # (Auto) 0.0 (0.0-0.2) X10*3/uL Abs Immat Gran (auto) 0.03 (0.00-0.03) X10*3/uL Absolute Neuts (auto) 6.1 (2.0-8.3) x10*3/uL Absolute Nucleated RBC 0.000 (0.0-0.012) X10*3/uL Nucleated RBC % (auto) 0.0 (0.0-0.2) /100WBC Sodium 140 (135-145) mmol/L Potassium 5.4 H (3.3-5.1) mmol/L Chloride 106 (96-108) mmol/L Carbon Dioxide 21 L (22-29) mmol/L Anion Gap 18 (12-20) BUN 30 H (9-16) mg/dL Creatinine 1.45 H (0.5-1.4) mg/dL Estim Creat Clear Calc 33.9 Estimated GFR 35 Random Glucose 120 H (60-115) mg/dL Calcium 9.2 (8.4-10.2) mg/dL Total Bilirubin 0.2 (0.0-1.0) mg/dL AST 27 (5-31) U/L ALT 13 (0-31) U/L Alkaline Phosphatase 79 (39-117) U/L Total Protein 8.1 H (6.5-8.0) g/dL Albumin 4.2 (3.5-5.0) g/dL Urine Color Yellow Urine Appearance Clear Urine pH 5.0 (5.0-9.0) Ur Specific [place] 1.020 (1.005-1.025) Urine Protein Trace (Neg-Trace) mg/dL Urine Glucose (UA) Negative (Negative) mg/dL Urine Ketones Negative (Negative) mg/dL Urine Blood Small (1+) H (Negative) Urine Nitrite Negative (Negative) Ur Leukocyte Esterase Negative (Negative) Urine RBC 6-10 H (0-2) /HPF Urine WBC 0-5 (0-5) /HPF Ur Squamous Epith Cells 0-2 (0-2) /HPF Urine Bacteria None Seen (None Seen) Hyaline Casts 0-2 (0-2) /LPF Independent Interpretation I performed an independent interpretation of an: CT Scan Interpretation: CT abdomen/pelvis without renal stone or hydronephrosis, agree with radiologist's interpretation. Radiology Impression Discussion of test interpretation with radiology: I have reviewed the radiologist's reading. Radiologist Impression: CT abdomen pelvis wo IV con IMPRESSION: No acute intra-abdominal process. Fibroid uterus. Fleischner guidelines were followed. Independent Historian Clinical information obtained from an independent historian. History obtained from or confirmed by: EMS External Record Review External record reviewed: Inpatient record, Office record, Outpatient record, Prior outpatient labs, Prior outpatient radiology, Primary care record and Outside ED record Prescription Management I considered prescription management with: Pain Medication Chronic Conditions Patient?s care impacted by: Hypertension and Other (ckd) Social Determinants Patient?s care significantly limited by Social Determinants of Health including: Other Social Determinant of Health Critical Care Time Critical Care Time Critical Care Time: No Discharge Plan Discharge Clinical Impression: Renal calculi, Renal colic Patient Disposition: Home, Self-Care Instructions: Kidney Stones (ED), Acute Low Back Pain (ED) Additional Instructions: You lab workup today is reassuring. The CT of your abdomen and pelvis did not show acute process. It does however show a 1.8 cm cyst on the left kidney. Please follow up with your pcp regarding this finding as it may warrant serial imaging. Your urine was negative for infection however showed blood, suggestive of possible kidney stone. Flomax has been sent to your pharmacy. Take this as prescribed to help flush the kidney stones out. You may also take tylenol as needed for pain/ discomfort. Continue taking your home medications as prescribed. Follow up with your pcp. Return to the ED if your symptoms persist or worsen. In the case of emergency, call 911. Leiva an?lisis de laboratorio de hoy es tranquilizador. La tomograf?a computarizada de abdomen y pelvis no mostr? proceso alberto. Sin embargo, muestra un quiste de 1,8 cm en el ri??n giovany. Rahat un seguimiento con leiva PCP con respecto a ashleigh hallazgo, ya que puede requerir im?genes en serie. Leiva orina fue negativa para infecci?n, sin embargo, mostr? paloma, lo que sugiere un posible c?lculo renal. Flomax triplett sido enviado a leiva farmacia. T?zavala seg?n lo prescrito para ayudar a eliminar los c?lculos renales. Tambi?n puede arnel tylenol seg?n sea necesario para el dolor o la incomodidad. Contin?e tomando briana medicamentos caseros seg?n lo recetado. Rahat un seguimiento con leiva PCP. Regrese al servicio de urgencias si briana s?ntomas persisten o empeoran. En nakul de emergencia, llame al 911. Prescriptions: New tamsulosin [Flomax] 0.4 mg capsule 0.4 mg PO DAILY 14 Days Qty: 14 0RF No Action loratadine 10 mg tablet 10 mg PO DAILY 90 Days Qty: 90 3RF Nucala 100 mg/mL syringe 100 mg subcut Q4W Qty: 1 11RF Multaq 400 mg tablet 400 mg PO BID 90 Days Qty: 180 2RF (DME) lift recliner See Rx Instructions .Route .MEDSUPPLY Qty: 1 0RF Rx Instructions: As directed diltiazem HCl [Cardizem CD] 120 mg capsule,extended release 24hr 120 mg PO DAILY 90 Days Qty: 90 3RF Incruse Ellipta 62.5 mcg/actuation blister with device 1 inh inhalation DAILY Qty: 30 11RF rosuvastatin [Crestor] 10 mg tablet 10 mg PO DAILY 90 Days Qty: 90 1RF prednisone 5 mg tablet 5 mg PO DAILY Qty: 30 11RF Hold Instructions: resume after completion of prednisone taper Eliquis 5 mg tablet 5 mg PO BID Qty: 60 5RF amoxicillin 500 mg tablet 500 mg PO Q12H 7 Days Qty: 14 0RF levothyroxine 25 mcg tablet 25 mcg PO DAILY 90 Days Qty: 90 1RF ipratropium-albuterol 0.5 mg-3 mg(2.5 mg base)/3 mL solution for nebulization 3 ml inhalation QID PRN (Reason: Shortness Of Breath) lidocaine [Lidoderm] 5 % adhesive patch,medicated 1 patch topical DAILY Qty: 30 0RF Rx Instructions: leave on most painful area for up to 12 hrs losartan 25 mg tablet 25 mg PO DAILY 90 Days Qty: 90 1RF famotidine 20 mg tablet 20 mg PO BEDTIME 90 Days Qty: 90 1RF polyethylene glycol 3350 [Miralax] 17 gram/dose powder 17 g PO DAILY PRN (Reason: constipation) 30 Days Qty: 119 1RF fluocinolone acetonide oil [DermOtic Oil] 0.01 % drops 5 drp otic (ear) left BID 7 Days Qty: 20 0RF aripiprazole 5 mg tablet 5 mg PO DAILY albuterol sulfate 90 mcg/actuation HFA aerosol inhaler 2 inh inhalation Q6H PRN (Reason: shortness of breath or wheezing) 30 Days Qty: 18 12RF escitalopram oxalate 10 mg tablet 10 mg PO DAILY Referrals: Atul Ga MD [Physician] - Interventions: ED Discharge Assessment Last Done: 07/15/23 23:44 Discharge Date/Time: 07/15/23 23:51 Print Language: Yoruba
[2023-07-15 21:53] LABS: Basophils Percent Auto 0.5 % (0-2); Eosinophils Percent Auto 0.2 % (0-4); Hemoglobin 11.2 g/dl (12.0-16.0); Imm Gran Abs Auto 0.03 X10*3/uL (0.00-0.03); Imm Gran Pct Auto 0.4 % (0.0-0.4); Lymphocytes Absolute Auto 1.7 X10*3/uL (1.2-4.9); Lymphocytes Percent Auto 19.6 % (20-40); Mean Corpuscular HGB Conc 30.3 g/dl (31.0-35.0); Mean Platelet Volume 9.3 fL (9.4-12.3); Monocytes Absolute Auto 0.6 X10*3/uL (0.1-1.2); Monocytes Percent Auto 6.9 % (2-11); Neutrophils Absolute Auto 6.1 x10*3/uL (2.0-8.3); Neutrophils Percent Auto 72.4 % (45-73); Platelet Count 419 X10*3/uL (160-400); Red Cell Distribution Width 15.4 % (11.0-16.0); White Blood Count 8.4 X10*3/uL (4.8-10.8)
[2023-07-15 21:55] LABS: Bacteria Urine None Seen (None Seen); Hyaline Casts Urine 0-2 /LPF (0-2); Squamous Epithelial Cell Urine 0-2 /HPF (0-2); WBC Urine 0-5 /HPF (0-5)
[2023-07-15 22:01] LABS: Alanine Aminotransferase 13 U/L (0-31); Albumin Level 4.2 g/dL (3.5-5.0); Alkaline Phosphatase 79 U/L (39-117); Anion Gap 18 (12-20); Aspartate Amino Transferase 27 U/L (5-31); Bilirubin Total 0.2 mg/dL (0.0-1.0); Blood Urea Nitrogen 30 mg/dL (9-16); Calcium 9.2 mg/dL (8.4-10.2); Carbon Dioxide 21 mmol/L (22-29); Chloride 106 mmol/L (96-108); Creatinine Clr Calc Pharmacy 33.9; Estimated Glomerular Filt Rate 35; Glucose Random 120 mg/dL (60-115); Potassium 5.4 mmol/L (3.3-5.1); Sodium 140 mmol/L (135-145); Total Protein 8.1 g/dL (6.5-8.0)
[2023-07-15 23:34] VITALS: BP 136/62; PULSE 75; RESP 18; O2SAT 97
[2023-07-15] MEDS: Acetaminophen 325 MG TABLET 975 MG PO (23:36)
== END 2023-07-15 23:51 | disposition home or self-care (01) ==
PROVIDERS: Emergency Provider Internal Medicine; PCP Internal Medicine
DX: N20.0 Calculus of kidney (principal); N23 Unspecified renal colic; I48.0 Paroxysmal atrial fibrillation; I12.9 Hypertensive chronic kidney disease with stage 1 through stage 4 chronic kidney disease, or unspecified chronic kidney disease; N18.30 Chronic kidney disease, stage 3 unspecified; E78.5 Hyperlipidemia, unspecified; Z79.01 Long term (current) use of anticoagulants; Z79.899 Other long term (current) drug therapy; Z87.891 Personal history of nicotine dependence
CPT/HCPCS: 36415; 74176; 80053; 81001; 85025; 99284

== ENCOUNTER 2023-07-26 12:56 | Outpatient (AMB) | payer OTHER, SELFPAY ==
--- NOTE | 2023-07-26 13:07 | MHC.PC.OV ---
Vital Signs 07/26/23 13:10 Height 5 ft 3 in Weight 192 lb 0.4 oz BMI 34.0 BP 122/60 Blood Pressure Location Lt brachial Position Sitting Pulse 94 Pulse Source Pulse Oximeter Temp Source Skin Pulse Oximetry (%) 96 Oxygen Delivery Method Room Air Intake Visit Reasons: Right eye discomfort Intake Note: pt states right eye discomfort due to skin tag [employer] Required: No Allergies sulfamethoxazole [From Bactrim] Allergy (Severe, Verified 07/26/23 13:08) Rash trimethoprim [From Bactrim] Allergy (Severe, Verified 07/26/23 13:08) Rash levofloxacin [From LEVAQUIN] Allergy (Intermediate, Verified 07/26/23 13:08) RASH SOB, DIZZYNESS tramadol Adverse Reaction (Severe, Verified 07/26/23 13:08) abdominal pain, vomiting acetaminophen [Tylenol-Codeine #3] Adverse Reaction (Intermediate, Verified 07/26/23 13:08) vomitting atorvastatin [Lipitor] Adverse Reaction (Intermediate, Verified 07/26/23 13:08) nausea codeine [CODEINE] Adverse Reaction (Intermediate, Verified 07/26/23 13:08) NAUSEA & VOMITING morphine [MORPHINE] Adverse Reaction (Intermediate, Verified 07/26/23 13:08) NAUSEA & VOMITING pravastatin Adverse Reaction (Intermediate, Verified 07/26/23 13:08) myalgia rosuvastatin Adverse Reaction (Mild, Verified 07/26/23 13:08) myalgia Medication List - Last Reconciled 07/26/23 by Yuridia Harrell MD albuterol sulfate 90 mcg/actuation (Ventolin HFA) 2 puffs PO Q6H PRN apixaban (Eliquis) 5 mg PO BID aripiprazole 5 mg PO DAILY diltiazem HCl (Cardizem CD) 120 mg PO DAILY 90 days dronedarone (Multaq) 400 mg PO BID 90 days escitalopram oxalate 10 mg PO DAILY famotidine 20 mg PO BEDTIME 90 days fluocinolone acetonide oil 0.01% (DermOtic Oil) 5 drps otic (ear) left BID 7 days ipratropium-albuterol 0.5 mg-3 mg(2.5 mg base)/3 mL 3 mL inhalation QID PRN levothyroxine 25 mcg PO DAILY 90 days lidocaine 5% (Lidoderm) 1 patch topical DAILY [lift recliner As directed] loratadine 10 mg PO DAILY 90 days losartan 25 mg PO DAILY 90 days mepolizumab (Nucala) 100 mg subcut Q4W polyethylene glycol 3350 (Miralax) 17 grams PO DAILY PRN 30 days prednisone 5 mg PO DAILY rosuvastatin (Crestor) 10 mg PO DAILY 90 days tamsulosin (Flomax) 0.4 mg PO DAILY 14 days triamcinolone acetonide 0.5% 1 appl topical BID umeclidinium 62.5 mcg/actuation (Incruse Ellipta) 1 inh inhalation DAILY Tobacco use date assessed: 07/26/23 Fall risk assessment: No Falls in past year Last assessed Fall Risk: 07/26/23 Dental Screening Dental Screen Date: 07/26/23 Did you have a dental visit in the last 12 months?: Yes Did you have a dental problem in the last 6 months where you did not have access to dental care?: No Was dental information given to patient?: Patient has dentist HPI Right eye discomfort HPI Details 72-year-old obese female with GERD hypothyroidism asthma COPD overlap syndrome hypertension hypercholesterolemia history of DVT atrial fibrillation chronic kidney disease osteoarthritis of the knee coming in for an acute problemKeyla 99 interpretRight upper lid- feels pinching. Patient also has a rash on left foot series ear which has been occurring intermittently and wanted some treatment for this. [facility] Medical History Osteoarthritis of knees, bilateral Mild recurrent major depression Polyarthralgia Osteopenia (~2007) Tubular adenoma of colon (~2009) Breast pain, left Postmenopausal Asthma-COPD overlap syndrome GERD (gastroesophageal reflux disease) HTN (hypertension) Paroxysmal atrial fibrillation (~01/2021) Dyslipidemia Hypothyroidism Pneumonia Eosinophilia Steroid dependent Chronic allergic rhinitis Asthma Surgical History History of right breast biopsy (~1998) History of colonoscopy History of D&C (~2002) History of tubal ligation History of shoulder surgery (~2006) History of nasal polypectomy (~2007) History of knee surgery Family History Father Medical history unknown Mother Alzheimer disease Daughter Lupus Other Arthritis Social History Household Members: None Housing: House Are you a primary career and technology education teacher to a significant other at home: No Do you presently have visiting nurse or other home services: Yes Alcohol intake: never Patient Tobacco Use Status: Former Tobacco user Tobacco use type: Cigarette e-Cigarette/Vaping Use: Never Used Second Hand Smoke Exposure: No Advance Directives Date on File: 11/10/20 service: No Current occupational status: disabled Cognitive needs: Yes (cane) Hearing needs: No Vision needs: Yes (glasses) Questionnaire Thrive Questionnaire Date Thrive assessed: 10/18/22 AUDIT C Alcohol Use Questionnaire (AUDIT-C) 1. How often do you have a drink containing alcohol?: Never Total Score: 0 FABIOLA-7 AMB Questionnaire FABIOLA-7 Date FABIOLA - 7 assessed: 10/18/22 Source: Developed by Drs. Mk Zapata, Roseline Pantoja, Nura Bailon and colleagues, with an educational camila from [employer]. Physical exam (Primary Care) Vital Signs: Last Vital Signs Pulse 94 07/26/23 13:10 BP 122/60 07/26/23 13:10 Pulse Ox 96 07/26/23 13:10 Oxygen Delivery Method Room Air 07/26/23 13:10 BMI result Body Mass Index 34.0 Tobacco/Smoking Status: Tobacco use Status Tobacco use date assessed 07/26/23 07/26/23 13:10 Patient Tobacco Use Status Former Tobacco user 07/26/23 13:10 Tobacco use type Cigarette 07/26/23 13:10 e-Cigarette/Vaping Use Never Used 07/26/23 13:10 Thrive Assessment: Date of Thrive Assessment Date Thrive assessed 10/18/22 07/26/23 13:10 [facility] Head images: 1. mild erythema scaly rash Face images: 1. skin tag R upper lid Assessment and Plan Assessment & Plan (1) Pain, eye, right: Code(s): H57.11 - Ocular pain, right eye Plan: Patient has been referred to the phytopathologist question of the skin tag on the upper lid right (2) Eczema of external ear: Code(s): H60.549 - Acute eczematoid otitis externa, unspecified ear Plan: Cream sent in to be used twice a day for 1-2 weeks only Orders: Referrals Ophthalmology Referral H57.11 - Ocular pain, right eye Medications: New triamcinolone acetonide 0.5% 1 appl topical BID 30 grams 0RF H60.549 - Acute eczematoid otitis externa, unspecified ear Coding Level of Care Code Est Pt Level 3 (96230) Diagnoses Pain, eye, right H57.11 Eczema of external ear H60.549
[2023-07-26 13:10] VITALS: BP 122/60; PULSE 94; O2SAT 96; BMI 34.0
== END 2023-07-26 14:20 | disposition home or self-care (01) ==
PROVIDERS: PCP Internal Medicine; Visit Provider Internal Medicine
DX: H57.11 Ocular pain, right eye (principal); H60.542 Acute eczematoid otitis externa, left ear
CPT/HCPCS: 99213

== ENCOUNTER 2023-07-27 09:05 | Outpatient (REF) | payer OTHER, SELFPAY ==
[2023-07-27 10:57] LABS: Alanine Aminotransferase 10 U/L (0-31); Albumin Level 4.1 g/dL (3.5-5.0); Alkaline Phosphatase 75 U/L (39-117); Anion Gap 15 (12-20); Aspartate Amino Transferase 14 U/L (5-31); Bilirubin Total 0.3 mg/dL (0.0-1.0); Blood Urea Nitrogen 21 mg/dL (9-16); Calcium 9.5 mg/dL (8.4-10.2); Carbon Dioxide 26 mmol/L (22-29); Chloride 106 mmol/L (96-108); Cholesterol 293 mg/dL (<200); Estimated Glomerular Filt Rate 42; Glucose Fasting 84 mg/dL (60-99); HDL Cholesterol 58 mg/dL (>40); LDL Cholesterol Calculated 202 mg/dL (<100); Potassium 4.3 mmol/L (3.3-5.1); Sodium 143 mmol/L (135-145); Total Protein 7.4 g/dL (6.5-8.0); Triglycerides 168 mg/dL (<150)
[2023-07-27 11:14] LABS: Thyroid Stimulating Hormone 4.17 uIU/mL (0.32-4.0); Vitamin D 25-OH Total 31.3 ng/mL (>30)
== END 2023-07-27 09:06 | disposition home or self-care (01) ==
LOC: HO.LAB 09:05
PROVIDERS: PCP Internal Medicine; Visit Provider Internal Medicine
DX: E55.9 Vitamin D deficiency, unspecified (principal); E03.9 Hypothyroidism, unspecified; E78.5 Hyperlipidemia, unspecified; I12.9 Hypertensive chronic kidney disease with stage 1 through stage 4 chronic kidney disease, or unspecified chronic kidney disease; N18.30 Chronic kidney disease, stage 3 unspecified
CPT/HCPCS: 36415; 80053; 80061; 82306; 84443

== ENCOUNTER 2023-08-02 08:54 | Outpatient (REF) | payer OTHER, SELFPAY | END 2023-08-02 08:55 | disposition home or self-care (01) | LOC: HO.MDS 08:54 | PROVIDERS: Visit Provider Hospitalist | DX: J45.50 Severe persistent asthma, uncomplicated (principal) | CPT/HCPCS: 96372 ==

== ENCOUNTER 2023-08-04 09:52 | Outpatient (AMB) | payer OTHER, SELFPAY ==
--- NOTE | 2023-08-04 10:24 | MHC.PC.OV ---
Vital Signs 08/04/23 10:25 08/04/23 13:14 Height 5 ft 3 in Weight 190 lb BMI 33.7 BP 152/78 H 150/80 H Blood Pressure Location Lt brachial Lt brachial Position Sitting Sitting Pulse 76 Pulse Source Pulse Oximeter Pulse Oximetry (%) 99 Oxygen Delivery Method Room Air Intake Visit Reasons: bp Intake Note: Patient here for a follow BP, c/o hemmorhoids, skin tag on eye Director Of Housing And [employer] Services Required: No Accompanied by: Self / Same As Patient Allergies sulfamethoxazole [From Bactrim] Allergy (Severe, Verified 08/04/23 10:44) Rash trimethoprim [From Bactrim] Allergy (Severe, Verified 08/04/23 10:44) Rash levofloxacin [From LEVAQUIN] Allergy (Intermediate, Verified 08/04/23 10:44) RASH SOB, DIZZYNESS tramadol Adverse Reaction (Severe, Verified 08/04/23 10:44) abdominal pain, vomiting acetaminophen [Tylenol-Codeine #3] Adverse Reaction (Intermediate, Verified 08/04/23 10:44) vomitting atorvastatin [Lipitor] Adverse Reaction (Intermediate, Verified 08/04/23 10:44) nausea codeine [CODEINE] Adverse Reaction (Intermediate, Verified 08/04/23 10:44) NAUSEA & VOMITING morphine [MORPHINE] Adverse Reaction (Intermediate, Verified 08/04/23 10:44) NAUSEA & VOMITING pravastatin Adverse Reaction (Intermediate, Verified 08/04/23 10:44) myalgia rosuvastatin Adverse Reaction (Mild, Verified 08/04/23 10:44) myalgia Medication List - Last Reconciled 08/04/23 by Angelique Valentine MD albuterol sulfate 90 mcg/actuation (Ventolin HFA) 2 puffs PO Q6H PRN apixaban (Eliquis) 5 mg PO BID aripiprazole 5 mg PO DAILY diltiazem HCl (Cardizem CD) 120 mg PO DAILY 90 days dronedarone (Multaq) 400 mg PO BID 90 days escitalopram oxalate 10 mg PO DAILY famotidine 20 mg PO BEDTIME 90 days fluocinolone acetonide oil 0.01% (DermOtic Oil) 5 drps otic (ear) left BID 7 days ipratropium-albuterol 0.5 mg-3 mg(2.5 mg base)/3 mL 3 mL inhalation QID PRN levothyroxine 25 mcg PO DAILY 90 days lidocaine 5% (Lidoderm) 1 patch topical DAILY ieyznilch-gzexxp-meijoj-petrol 5-0.25-14.4-15 % (Preparation H Rapid Relief-Lidocaine) 1 appl topical DAILY 14 days [lift recliner As directed] loratadine 10 mg PO DAILY 90 days losartan 25 mg PO DAILY 90 days mepolizumab (Nucala) 100 mg subcut Q4W polyethylene glycol 3350 (Miralax) 17 grams PO DAILY PRN 30 days prednisone 5 mg PO DAILY rosuvastatin (Crestor) 10 mg PO DAILY 90 days tamsulosin (Flomax) 0.4 mg PO DAILY 14 days triamcinolone acetonide 0.5% 1 appl topical BID umeclidinium 62.5 mcg/actuation (Incruse Ellipta) 1 inh inhalation DAILY Tobacco use date assessed: 07/26/23 Fall risk assessment: No Falls in past year Last assessed Fall Risk: 08/04/23 Dental Screening Dental Screen Date: 08/04/23 Did you have a dental visit in the last 12 months?: No Did you have a dental problem in the last 6 months where you did not have access to dental care?: No Was dental information given to patient?: Patient has dentist HPI HPI Comments History of Present Illness Details This is a 72-year-old female with hypertension, hypothyroidism, atrial fibrillation, asthma-COPD overlap syndrome, dyslipidemia and mild recurrent major depression that comes today complaining of hemorrhoids that has been bothering her for the past few weeks. Will prescribe of steroid cream for that matter. Blood pressure elevated today and she took her blood pressure at home and it was 130/80. Blood pressure will be recheck in 3 weeks by nurse navigator. TSH is elevated but she admits not been compliant with levothyroxine. On chronic anticoagulation for atrial fibrillation which is follow by cardiology and the goal is heart rate control. Has asthma-COPD overlap syndrome that has markedly improved with no call and this is follow by pulmonology. She use rescue inhaler 2 to 3 times a month now. Cholesterol is elevated but she admits not been compliant with rosuvastatin. Depression also stable with medications. Had a colonoscopy in 2009 showing tubular adenoma of colon and I will refer her for another colonoscopy and she wants with Dr. Norman. She also has chronic kidney disease stage 3 which has improved to a recent GFR of 42 and was advised to avoid NSAIDs and to keep blood pressure less than 130/80. [facility] Medical History (Updated 08/04/23 @ 10:58 by Angelique Valentine MD) Osteoarthritis of knees, bilateral Mild recurrent major depression Polyarthralgia Osteopenia (~2007) Tubular adenoma of colon (~2009) Breast pain, left Postmenopausal Asthma-COPD overlap syndrome GERD (gastroesophageal reflux disease) HTN (hypertension) Paroxysmal atrial fibrillation (~01/2021) Dyslipidemia Hypothyroidism Pneumonia Eosinophilia Steroid dependent Chronic allergic rhinitis Asthma Surgical History History of right breast biopsy (~1998) History of colonoscopy History of D&C (~2002) History of tubal ligation History of shoulder surgery (~2006) History of nasal polypectomy (~2007) History of knee surgery Family History Father Medical history unknown Mother Alzheimer disease Daughter Lupus Other Arthritis Social History Household Members: None Housing: House Are you a primary director day care center to a significant other at home: No Do you presently have visiting nurse or other home services: Yes Alcohol intake: never Patient Tobacco Use Status: Former Tobacco user Tobacco use type: Cigarette e-Cigarette/Vaping Use: Never Used Second Hand Smoke Exposure: No Advance Directives Date on File: 11/10/20 service: No Current occupational status: disabled Cognitive needs: Yes (cane) Hearing needs: No Vision needs: Yes (glasses) Questionnaire Thrive Questionnaire Date Thrive assessed: 10/18/22 FABIOLA-7 AMB Questionnaire FABIOLA-7 Date FABIOLA - 7 assessed: 10/18/22 Source: Developed by Drs. Mk Zapata, Roseline Pantoja, Nura Bailon and colleagues, with an educational camila from [employer]. Review of Systems Const All systems reviewed & are unremarkable except as noted in HPI and below Eyes Reports no additional complaints, Denies change in vision and Denies other visual disturbances Card Denies chest pain at rest, Denies chest pain with activity, Denies edema, Denies irregular heart rhythm, Denies claudication, Denies dyspnea, Denies dyspnea on exertion, Denies orthopnea, Denies paroxysmal nocturnal dyspnea and Denies slow heart rate Resp Denies cough, Denies dyspnea and Denies dyspnea on exertion GI Denies abdominal pain, Denies change in bowel habits, Denies excessive flatus, Denies nausea and Denies vomiting Denies urinary incontinence, Denies urinary hesitancy and Denies urinary urgency Musc Denies abnormal gait, Denies atrophy, Denies deformity and Denies limited range of motion Skin/Breast Denies bleeding lesions, Denies changing lesions and Denies rash Neuro Denies abnormal gait and Denies lack of coordination Physical exam (Primary Care) Vital Signs: Last Vital Signs Pulse 76 08/04/23 10:25 BP 152/78 H 08/04/23 10:25 Pulse Ox 99 08/04/23 10:25 Oxygen Delivery Method Room Air 08/04/23 10:25 BMI result Body Mass Index 33.7 Tobacco/Smoking Status: Tobacco use Status Tobacco use date assessed 07/26/23 08/04/23 10:27 Patient Tobacco Use Status Former Tobacco user 08/04/23 10:27 Tobacco use type Cigarette 08/04/23 10:27 e-Cigarette/Vaping Use Never Used 08/04/23 10:27 Thrive Assessment: Date of Thrive Assessment Date Thrive assessed 10/18/22 08/04/23 10:27 Eyes General: appearance normal, both eyes and all related structures Eyelids: Yes eyelids normal Conjunctivae: conjunctivae normal Neck Neck: Yes normal visual inspection and Yes supple Resp Effort & Inspection: normal respiratory effort Auscultation: clear to auscultation bilaterally Cardio Jugular venous distension: no JVD Rate: regular rate Rhythm: regular rhythm Heart sounds: S1 normal heart sound present and S2 normal heart sound present Skin General skin exam: no rashes or lesions noted Extrem General: Yes full ROM Office Procedures Flu Questionnaire Does the patient have a severe egg allergy?: No Immunizations flu vacc [id number] 6mos up(PF) 60 mcg(15 mcgx4)/0.5 mL IM syringe Performing Provider: Angelique Valentine MD [place] [facility] [place] [facility] Documented (not given) by: CONNIE Valdovinos on 08/04/23 10:27 Reason Not Given: Patient Refused Assessment and Plan Assessment & Plan (1) Paroxysmal atrial fibrillation: Onset Date: ~01/2021 Code(s): I48.0 - Paroxysmal atrial fibrillation Plan: Continue Multaq and Eliquis. Follow-up with Cardiology. The goal is heart rate control. Continue diltiazem. (2) Mild recurrent major depression: Code(s): F33.0 - Major depressive disorder, recurrent, mild Plan: Continue Abilify and escitalopram. (3) Asthma-COPD overlap syndrome: Code(s): J44.9 - Chronic obstructive pulmonary disease, unspecified Plan: Continue longstanding inhaler and nucala. Continue Incruse. Use rescue inhaler as needed. Follow-up with pulmonology. (4) HTN (hypertension): Code(s): I10 - Essential (primary) hypertension Plan: Continue losartan. Blood pressure goal is equal or less than 130/80. (5) Dyslipidemia: Code(s): E78.5 - Hyperlipidemia, unspecified Plan: Be compliant with statins. (6) CKD (chronic kidney disease) stage 3, GFR 30-59 ml/min: Code(s): N18.30 - Chronic kidney disease, stage 3 unspecified Plan: Avoid NSAIDs. The goal is to have blood pressure less than 130/80. (7) Hypothyroidism: Code(s): E03.9 - Hypothyroidism, unspecified Qualifiers: Hypothyroidism type: unspecified Qualified Code(s): E03.9 - Hypothyroidism, unspecified Plan: Be compliant with levothyroxine. Orders: Orders Influenza [id number] Immunization Today Z23 - Encounter for immunization Referrals Ophthalmology Referral H02.9 - Unspecified disorder of eyelid General Surgery Referral D12.6 - Benign neoplasm of colon, unspecified Medications: New hydrocortisone 2.5% 1 appl PA BID-QID 30 days PRN 30 grams 1RF hemorrhoids Coding Level of Care Code Est Pt Level 4 (20092) Diagnoses Paroxysmal atrial fibrillation I48.0 Mild recurrent major depression F33.0 Asthma-COPD overlap syndrome J44.9 HTN (hypertension) I10 Dyslipidemia E78.5 CKD (chronic kidney disease) stage 3, GFR 30-59 ml/min N18.30 Hypothyroidism, unspecified type E03.9 Hypothyroidism type: unspecified Time Spent (min) 25
[2023-08-04 10:25] VITALS: BP 152/78; PULSE 76; O2SAT 99; BMI 33.7
[2023-08-04 13:14] VITALS: BP 150/80
== END 2023-08-04 10:57 | disposition home or self-care (01) ==
PROVIDERS: PCP Internal Medicine; Visit Provider Internal Medicine
DX: I48.0 Paroxysmal atrial fibrillation (principal); F33.0 Major depressive disorder, recurrent, mild; I12.9 Hypertensive chronic kidney disease with stage 1 through stage 4 chronic kidney disease, or unspecified chronic kidney disease; N18.30 Chronic kidney disease, stage 3 unspecified; E78.5 Hyperlipidemia, unspecified; E03.9 Hypothyroidism, unspecified
CPT/HCPCS: 99214

== ENCOUNTER 2023-08-18 09:41 | Outpatient (AMB) | payer OTHER, SELFPAY ==
--- NOTE | 2023-08-18 09:43 | MHC.OFFVIS ---
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 services Self Sealing Fuel Tank Repairer: Self Sealing Fuel Tank Repairer Present Accompanied by: Friend Allergies sulfamethoxazole [From Bactrim] Allergy (Severe, Verified 08/04/23 10:44) Rash trimethoprim [From Bactrim] Allergy (Severe, Verified 08/04/23 10:44) Rash levofloxacin [From LEVAQUIN] Allergy (Intermediate, Verified 08/04/23 10:44) RASH SOB, DIZZYNESS tramadol Adverse Reaction (Severe, Verified 08/04/23 10:44) abdominal pain, vomiting acetaminophen [Tylenol-Codeine #3] Adverse Reaction (Intermediate, Verified 08/04/23 10:44) vomitting atorvastatin [Lipitor] Adverse Reaction (Intermediate, Verified 08/04/23 10:44) nausea codeine [CODEINE] Adverse Reaction (Intermediate, Verified 08/04/23 10:44) NAUSEA & VOMITING morphine [MORPHINE] Adverse Reaction (Intermediate, Verified 08/04/23 10:44) NAUSEA & VOMITING pravastatin Adverse Reaction (Intermediate, Verified 08/04/23 10:44) myalgia rosuvastatin Adverse Reaction (Mild, Verified 08/04/23 10:44) myalgia Medication List - Last Reconciled 08/18/23 by Alexandro Cortés MD albuterol sulfate 90 mcg/actuation (Ventolin HFA) 2 puffs PO Q6H PRN apixaban (Eliquis) 5 mg PO BID aripiprazole 5 mg PO DAILY diltiazem HCl (Cardizem CD) 120 mg PO DAILY 90 days dronedarone (Multaq) 400 mg PO BID 90 days escitalopram oxalate 10 mg PO DAILY famotidine 20 mg PO BEDTIME 90 days fluocinolone acetonide oil 0.01% (DermOtic Oil) 5 drps otic (ear) left BID 7 days hydrocortisone 2.5% 1 appl AL BID-QID PRN 30 days ipratropium-albuterol 0.5 mg-3 mg(2.5 mg base)/3 mL 3 mL inhalation QID PRN levothyroxine 25 mcg PO DAILY 90 days lidocaine 5% (Lidoderm) 1 patch topical DAILY surkleohl-liglax-ujsnna-petrol 5-0.25-14.4-15 % (Preparation H Rapid Relief-Lidocaine) 1 appl topical DAILY 14 days [lift recliner As directed] loratadine 10 mg PO DAILY 90 days losartan 25 mg PO DAILY 90 days mepolizumab (Nucala) 100 mg subcut Q4W polyethylene glycol 3350 (Miralax) 17 grams PO DAILY PRN 30 days prednisone 5 mg PO DAILY rosuvastatin (Crestor) 10 mg PO DAILY 90 days tamsulosin (Flomax) 0.4 mg PO DAILY 14 days triamcinolone acetonide 0.5% 1 appl topical BID umeclidinium 62.5 mcg/actuation (Incruse Ellipta) 1 inh inhalation DAILY HPI HPI Comments History of Present Illness Details Sona comes for follow-up. History was obtained with help of for certified live supervisor sewer maintenance at patient's side. Patient denies any cardiac symptoms. Denies any atrial fibrillation symptoms. No prolonged palpitation irregular heartbeat. No bleeding issues or neurologic events. Denies any exertional chest pain shortness of breath. No orthopnea, PND, leg edema. Takes all her medications regularly. [facility] Medical History Osteoarthritis of knees, bilateral Mild recurrent major depression Polyarthralgia Osteopenia (~2007) Tubular adenoma of colon (~2009) Breast pain, left Postmenopausal Asthma-COPD overlap syndrome GERD (gastroesophageal reflux disease) HTN (hypertension) Paroxysmal atrial fibrillation (~01/2021) Dyslipidemia Hypothyroidism Pneumonia Eosinophilia Steroid dependent Chronic allergic rhinitis Asthma Surgical History History of right breast biopsy (~1998) History of colonoscopy History of D&C (~2002) History of tubal ligation History of shoulder surgery (~2006) History of nasal polypectomy (~2007) History of knee surgery Family History Father Medical history unknown Mother Alzheimer disease Daughter Lupus Other Arthritis Social History Household Members: None Housing: House Are you a primary home day care provider to a significant other at home: No Do you presently have visiting nurse or other home services: Yes Alcohol intake: never Patient Tobacco Use Status: Former Tobacco user Tobacco use type: Cigarette e-Cigarette/Vaping Use: Never Used Second Hand Smoke Exposure: No Advance Directives Date on File: 11/10/20 service: No Current occupational status: disabled Cognitive needs: Yes (cane) Hearing needs: No Vision needs: Yes (glasses) Review of Systems Const Denies chills, Denies fatigue, Denies fever(s), Denies frequent falls, Denies weakness, Denies weight gain and Denies weight loss ENT Denies dizziness Card Denies chest pain, Denies leg edema, Denies lightheadedness, Denies palpitations, Denies dyspnea, Denies dyspnea on exertion, Denies orthopnea and Denies other (loss of consciousness) Resp Denies cough, Denies dyspnea and Denies dyspnea on exertion GI Denies hematochezia and Denies change in stool character Musc Denies abnormal gait, Denies muscle weakness, Denies numbness, Denies radiating pain into limb and Denies tingling Neuro Denies abnormal gait, Denies dizziness, Denies frequent falls, Denies numbness, Denies tingling and Denies weakness Endo Denies fatigue and Denies palpitations Physical Exam Vital Signs: Last Vital Signs Pulse 82 08/18/23 09:44 BP 110/70 08/18/23 09:44 BMI result Body Mass Index 34.0 Const General: cooperative, healthy appearing, comfortable and no acute distress Orientation/consciousness: patient oriented x3 Neck Neck: Yes normal visual inspection and Yes no JVD Carotids: normal carotid upstroke Resp Effort & Inspection: normal respiratory effort Auscultation: clear to auscultation bilaterally, no crackles, no rales, no rhonchi, no wheezes and diminished lung sounds Cardio Jugular venous distension: no JVD Rate: regular rate Rhythm: regular rhythm Heart sounds: S1 normal heart sound present, S2 normal heart sound present, no gallops, no murmurs and no rubs Peripheral pulses: Peripheral pulses 2+ throughout GI Inspection: Yes normal to inspection Neuro General: patient oriented x3 Extrem General: No clubbing, No cyanosis, Yes pedal edema and Yes other (Bilateral varicosities) Psych Appearance: grossly normal Mental Status: mental status grossly normal Speech and movement: Normal speech and movement present Office Procedures EKG Details: EKG shows normal sinus rhythm moderate voltage criteria for LVH otherwise normal EKG [id number], Complete Assessment & Plan Assessment & Plan (1) Paroxysmal atrial fibrillation: Onset Date: ~01/2021 Code(s): I48.0 - Paroxysmal atrial fibrillation Plan: Highly symptomatic paroxysmal atrial fibrillation has remained controlled on Multaq therapy. Has done very well with rhythm control approach will continue pursue rhythm control approach. Continue Multaq therapy. Will need EKGs every 3 months. Follow up in the clinic 1 year's time. Semi annual renal function test should be pursued. Currently on full oral anticoagulation with Eliquis and should be continued. Avoidance of stimulants was discussed. (2) HTN (hypertension): Code(s): I10 - Essential (primary) hypertension Plan: Hypertension which is currently well optimized on current therapy. Continue the same. Importance of good blood pressure control was discussed continue current therapy. Target goal blood pressure less than 130/84. Low-salt diet was discussed advised to maintain heart healthy lifestyle with regular physical activity as well as weight loss program. Will follow up in the clinic in 1 year's time, sooner p.r.n.. Thank you for allowing me to partake in her care Coding Level of Care Code Est Pt Level 4 (91716) Diagnoses Paroxysmal atrial fibrillation I48.0 HTN (hypertension) I10 CPT Codes EKG - CPT: 21839-[id number], Complete ([id number])
[2023-08-18 09:44] VITALS: BP 110/70; PULSE 82; BMI 34.0
== END 2023-08-18 10:10 | disposition home or self-care (01) ==
PROVIDERS: PCP Internal Medicine; Visit Provider Internal Medicine Cardiovascular Disease
DX: I48.0 Paroxysmal atrial fibrillation (principal); I10 Essential (primary) hypertension
CPT/HCPCS: 93010; 99214

== ENCOUNTER → 2023-08-18 09:41 | Outpatient (BNVA) | payer OTHER, SELFPAY | PROVIDERS: PCP Internal Medicine; Visit Provider Internal Medicine Cardiovascular Disease | DX: I48.0 Paroxysmal atrial fibrillation (principal); I10 Essential (primary) hypertension | CPT/HCPCS: 93005; 99212 ==

== ENCOUNTER 2023-08-19 10:58 | Outpatient (REF) | payer OTHER, SELFPAY ==
--- NOTE | 2023-08-19 11:37 | PFT_ITS ---
FINDINGS: Forced vital capacity 103%, FEV1 102%, FEV1/FVC ratio 76. FEF 25/75 102% and MVV 76%. The patient declined to have albuterol updraft. Total lung capacity 83%. Residual volume 63%. Diffusion capacity is 52%. CONCLUSION: The baseline spirometry is normal and does not show evidence of obstructive or restrictive disorder. Total lung capacity is also normal. So, there is no evidence of any restrictive disorder. Diffusion capacity is moderately decreased, somewhat out of proportion to the other values. This may be due to technical reason or non pulmonary factors. Clinical correlation recommended. MD MICHELLE Obregon/MODL / [id number]
== END 2023-08-19 10:59 | disposition home or self-care (01) ==
LOC: HO.RESP 10:58
PROVIDERS: PCP Internal Medicine; Visit Provider Hospitalist
DX: J44.9 Chronic obstructive pulmonary disease, unspecified (principal)
CPT/HCPCS: 94010; 94727; 94729

== ENCOUNTER → 2023-08-19 11:37 | Outpatient (BNV) | payer OTHER, SELFPAY | PROVIDERS: PCP Internal Medicine; Visit Provider Internal Medicine | DX: J44.9 Chronic obstructive pulmonary disease, unspecified (principal) | CPT/HCPCS: 94060; 94727; 94729 ==

== ENCOUNTER 2023-08-22 08:51 | Emergency (ER) | payer OTHER, SELFPAY ==
[2023-08-22 09:02] VITALS: BP 181/76; PULSE 88; RESP 16; TEMP 35.5; O2SAT 97; O2SAT 98; BMI 30.5
--- NOTE | 2023-08-22 09:28 | ED.GENADULT ---
HPI - General Adult General Chief complaint: General Medical Stated complaint: HEMORRHOID PAIN X3 DAYS,MED NOT WORKING PER EMS Time Seen by Provider: 08/22/23 08:58 Source: patient Mode of arrival: EMS Limitations: no limitations History of Present Illness HPI narrative: This is a 72 years old female with multiple medical problem a presented emergency department complaining of hemorrhoid pain for about 3 days. Denies any systemic symptoms such as fever vomiting diarrhea. Patient has history of DVT she is anticoagulated with apixaban am a she has history of hypertension, she has history of arthritis history of COPD. Onset (ago): day(s) (3) Location: buttocks Radiation: non-radiation Severity: mild Quality: burning Pain Consistency: constant Relieving factors: none Exacerbating factors: none Associated symptoms: denies other symptoms Related Data Home Medications Medication Instructions Recorded Confirmed escitalopram oxalate 10 mg tablet 10 mg PO DAILY 05/17/22 08/18/23 aripiprazole 5 mg tablet 5 mg PO DAILY 07/09/22 08/18/23 ipratropium 0.5 mg-albuterol 3 mg 3 ml inhalation QID PRN Shortness 07/25/22 08/18/23 (2.5 mg base)/3 mL nebulization Of Breath soln Previous Rx's Medication Instructions Recorded mepolizumab 100 mg/mL subcutaneous 100 mg subcut Q4W #1 mL 09/06/22 syringe (Nucala) lidocaine 5 % topical patch 1 patch topical DAILY #30 ea 12/24/22 (Lidoderm) lift recliner #1 ea 01/08/23 umeclidinium 62.5 mcg/actuation 1 inh inhalation DAILY #30 ea 02/02/23 blister powder for inhalation (Incruse Ellipta) famotidine 20 mg tablet 20 mg PO BEDTIME 90 days #90 tabs 03/21/23 fluocinolone acetonide oil 0.01 % 5 drp otic (ear) left BID 7 days 03/21/23 ear drops (DermOtic Oil) #20 mL polyethylene glycol 3350 17 17 g PO DAILY PRN constipation 30 03/21/23 gram/dose oral powder (Miralax) days #119 grams rosuvastatin 10 mg tablet (Crestor) 10 mg PO DAILY 90 days #90 tabs 04/24/23 apixaban 5 mg tablet (Eliquis) 5 mg PO BID #60 tabs 06/27/23 prednisone 5 mg tablet 5 mg PO DAILY #30 tabs 06/27/23 levothyroxine 25 mcg tablet 25 mcg PO DAILY 90 days #90 tabs 07/13/23 tamsulosin 0.4 mg capsule (Flomax) 0.4 mg PO DAILY 14 days #14 caps 07/15/23 dronedarone 400 mg tablet (Multaq) 400 mg PO BID 90 days #180 tabs 07/19/23 loratadine 10 mg tablet 10 mg PO DAILY 90 days #90 tabs 07/20/23 albuterol sulfate 90 mcg/actuation 2 puff PO Q6H PRN for wheezing #18 07/25/23 aerosol inhaler (Ventolin HFA) ea losartan 25 mg tablet 25 mg PO DAILY 90 days #90 tabs 07/26/23 triamcinolone acetonide 0.5 % 1 appl topical BID #30 grams 07/26/23 topical cream diltiazem HCl 120 mg 120 mg PO DAILY 90 days #90 caps 07/27/23 capsule,extended release 24 hr (Cardizem CD) lidocaine 5 %-phenylephrine 0.25 1 appl topical DAILY 14 days #28 08/01/23 %-glycern 14.4 %-petrolatm 15 % grams cream (Preparation H Rapid Relief-Lidocaine) hydrocortisone 2.5 % topical cream 1 appl SD BID-QID PRN hemorrhoids 08/04/23 with perineal applicator 30 days #30 grams hydrocortisone 2.5 % topical cream 1 appl SD BID-QID PRN hemorrhoids 08/24/23 with perineal applicator 30 days #30 grams (Proctosol HC) Allergies Allergy/AdvReac Type Severity Reaction Status Date / Time sulfamethoxazole Allergy Severe Rash Verified 08/04/23 10:44 [From Bactrim] trimethoprim [From Bactrim] Allergy Severe Rash Verified 08/04/23 10:44 levofloxacin [From LEVAQUIN] Allergy Intermediate RASH SOB, Verified 08/04/23 10:44 DIZZYNESS tramadol AdvReac Severe abdominal Verified 08/04/23 10:44 pain, vomiting acetaminophen AdvReac Intermediate vomitting Verified 08/04/23 10:44 [Tylenol-Codeine #3] atorvastatin [Lipitor] AdvReac Intermediate nausea Verified 08/04/23 10:44 codeine [CODEINE] AdvReac Intermediate NAUSEA & Verified 08/04/23 10:44 VOMITING morphine [MORPHINE] AdvReac Intermediate NAUSEA & Verified 08/04/23 10:44 VOMITING pravastatin AdvReac Intermediate myalgia Verified 08/04/23 10:44 rosuvastatin AdvReac Mild myalgia Verified 08/04/23 10:44 Review of Systems Constitutional: Constitutional: Reports no additional constitutional complaints ENT: Reports system reviewed and no additional complaints, except as documented Gastrointestinal: Gastrointestinal: Reports no additional gastrointestinal complaints [facility] Past Medical History Medical History Osteoarthritis of knees, bilateral Mild recurrent major depression Polyarthralgia Osteopenia (~2007) Tubular adenoma of colon (~2009) Breast pain, left Postmenopausal Asthma-COPD overlap syndrome GERD (gastroesophageal reflux disease) HTN (hypertension) Paroxysmal atrial fibrillation (~01/2021) Dyslipidemia Hypothyroidism Pneumonia Eosinophilia Steroid dependent Chronic allergic rhinitis Asthma Surgical History History of right breast biopsy (~1998) History of colonoscopy History of D&C (~2002) History of tubal ligation History of shoulder surgery (~2006) History of nasal polypectomy (~2007) History of knee surgery Family History Family History Father Medical history unknown Mother Alzheimer disease Daughter Lupus Other Arthritis Social History Social History Household Members: None Housing: House Are you a primary respiratory care assistant to a significant other at home: No Do you presently have visiting nurse or other home services: Yes Alcohol intake: never Patient Tobacco Use Status: Former Tobacco user Tobacco use type: Cigarette e-Cigarette/Vaping Use: Never Used Second Hand Smoke Exposure: No Advance Directives Date on File: 11/10/20 service: No Current occupational status: disabled Cognitive needs: Yes (cane) Hearing needs: No Vision needs: Yes (glasses) Physical Exam ED Vital Signs: Vital Signs - 24 hr 08/22/23 09:02 08/22/23 10:32 Temperature 96 F L 97.6 F Pulse Rate 88 76 Respiratory Rate 16 16 Blood Pressure 181/76 H 142/68 H Pulse Oximetry 97 97 Oxygen Delivery Method Room Air Room Air BMI result Body Mass Index 30.5 She looks well she is not toxic-appearing Const General: cooperative and comfortable Nutritional Appearance: well nourished Orientation/consciousness: patient oriented x3 Limitations: no limitations HENMT Head: Yes normal to inspection Ears: hearing grossly normal bilaterally General nose exam: Normal external nose present Face and sinus: Yes normal facial exam Mouth: Normal oral and palatal mucosa present Throat: Yes posterior oropharynx normal Neck Neck: Yes normal visual inspection Chest Chest palpation & inspection: normal inspection of the chest Resp Effort & Inspection: normal respiratory effort Auscultation: clear to auscultation bilaterally Cardio Jugular venous distension: no JVD Rate: regular rate Rhythm: regular rhythm Bruits: Abdominal aortic bruit present GI Inspection: Yes normal to inspection Palpation (GI): Abdominal aortic bruit present Percussion: Yes normal to percussion Auscultation: normal bowel sounds Rectal Exam - Female: other (2 small hemorrhoid mo thombosis) General: Yes no CVA tenderness Back/Spine/Pelvis Back: no CVA tenderness Neuro General: patient oriented x3 Course Reevaluation(s) Reevaluation #1: Feels much better after the application of local [facility] okay there is no evidence of thrombosed hemorrhoid she can be discharged home Time: 11:01 Medications Administered Discontinued Medications Generic Name Dose Route Start Last Admin Trade Name Randellq PRN Reason Stop Dose Admin Lidocaine HCl 10 ml 08/22/23 09:37 08/22/23 10:16 Lidocaine Hcl 2 % Urojet 10 Ml Jel.Pf.Cyrus TOPICAL 08/22/23 09:38 10 ml ONCE ONE Administration Medical Decision Making Medical Decision Making [facility] Narrative: Patient presented with hemorrhoid pain ;on exam there is no evidence of a thrombosed hemorrhoid ;there is no evidence of prolapse of the rectum ; she is afebrile ,not toxic-appearing ,white count normal okay to discharge home with follow-up with PCP. Differential Diagnosis Differential Diagnoses: The differential diagnosis associated with the presentation includes Thrombosed hemorrhoid/prolapse of the rectum/proctitis Admission/Observation Consideration of admission/observation: Escalation of care including admission/observation considered Lab Data [facility] Lab Attestation statement: I reviewed the patient's lab results. 08/22/23 09:58 08/22/23 09:58 Labs: Lab Results 08/22/23 Range/Units 09:58 WBC 7.5 (4.8-10.8) X10*3/uL RBC 4.38 (4.20-5.50) X10*6/uL Hgb 11.4 L (12.0-16.0) g/dl Hct 37.0 (37.0-47.0) % MCV 84.5 (80.0-98.0) fL MCH 26.0 L (27.0-33.0) pg MCHC 30.8 L (31.0-35.0) g/dl RDW 15.3 (11.0-16.0) % Plt Count 350 (160-400) X10*3/uL MPV 10.0 (9.4-12.3) fL Immature Gran % (Auto) 0.3 (0.0-0.4) % Neut % (Auto) 67.0 (45-73) % Lymph % (Auto) 23.6 (20-40) % [place] % (Auto) 7.9 (2-11) % Eos % (Auto) 0.8 (0-4) % Baso % (Auto) 0.4 (0-2) % Lymph # (Auto) 1.8 (1.2-4.9) X10*3/uL [place] # (Auto) 0.6 (0.1-1.2) X10*3/uL Eos # (Auto) 0.1 (0.0-0.4) X10*3/uL Baso # (Auto) 0.0 (0.0-0.2) X10*3/uL Abs Immat Gran (auto) 0.02 (0.00-0.03) X10*3/uL Absolute Neuts (auto) 5.0 (2.0-8.3) x10*3/uL Absolute Nucleated RBC 0.000 (0.0-0.012) X10*3/uL Nucleated RBC % (auto) 0.0 (0.0-0.2) /100WBC Sodium 143 (135-145) mmol/L Potassium 4.8 (3.3-5.1) mmol/L Chloride 108 (96-108) mmol/L Carbon Dioxide 29 (22-29) mmol/L Anion Gap 11 L (12-20) BUN 19 H (9-16) mg/dL Creatinine 1.47 H (0.5-1.4) mg/dL Estim Creat Clear Calc 33.7 Estimated GFR 35 Random Glucose 82 (60-115) mg/dL Calcium 8.9 D (8.4-10.2) mg/dL Total Bilirubin 0.2 (0.0-1.0) mg/dL AST 12 (5-31) U/L ALT 7 (0-31) U/L Alkaline Phosphatase 70 (39-117) U/L Total Protein 7.0 (6.5-8.0) g/dL Albumin 3.8 (3.5-5.0) g/dL Discharge Plan Discharge Clinical Impression: Hemorrhoid Patient Disposition: Home, Self-Care Instructions: Hemorrhoids (DC) Additional Instructions: Follow-up with your primary care physician, return if you are worse Prescriptions: No Action Nucala 100 mg/mL syringe 100 mg subcut Q4W Qty: 1 11RF (DME) lift recliner See Rx Instructions .Route .MEDSUPPLY Qty: 1 0RF Rx Instructions: As directed Incruse Ellipta 62.5 mcg/actuation blister with device 1 inh inhalation DAILY Qty: 30 11RF rosuvastatin [Crestor] 10 mg tablet 10 mg PO DAILY 90 Days Qty: 90 1RF prednisone 5 mg tablet 5 mg PO DAILY Qty: 30 11RF Hold Instructions: resume after completion of prednisone taper Eliquis 5 mg tablet 5 mg PO BID Qty: 60 5RF levothyroxine 25 mcg tablet 25 mcg PO DAILY 90 Days Qty: 90 1RF Multaq 400 mg tablet 400 mg PO BID 90 Days Qty: 180 1RF loratadine 10 mg tablet 10 mg PO DAILY 90 Days Qty: 90 3RF albuterol sulfate [Ventolin HFA] 90 mcg/actuation HFA aerosol inhaler 2 puff PO Q6H PRN (Reason: for wheezing) Qty: 18 12RF losartan 25 mg tablet 25 mg PO DAILY 90 Days Qty: 90 1RF diltiazem HCl [Cardizem CD] 120 mg capsule,extended release 24hr 120 mg PO DAILY 90 Days Qty: 90 3RF Preparation H Rapid Rlf-Lidocn 5-0.25-14.4-15 % cream 1 appl topical DAILY 14 Days Qty: 28 0RF hydrocortisone [Proctosol HC] 2.5 % cream with perineal applicator 1 appl SD BID-QID PRN (Reason: hemorrhoids) 30 Days Qty: 30 0RF ipratropium-albuterol 0.5 mg-3 mg(2.5 mg base)/3 mL solution for nebulization 3 ml inhalation QID PRN (Reason: Shortness Of Breath) tamsulosin [Flomax] 0.4 mg capsule 0.4 mg PO DAILY 14 Days Qty: 14 0RF lidocaine [Lidoderm] 5 % adhesive patch,medicated 1 patch topical DAILY Qty: 30 0RF Rx Instructions: leave on most painful area for up to 12 hrs hydrocortisone 2.5 % cream with perineal applicator 1 appl SD BID-QID PRN (Reason: hemorrhoids) 30 Days Qty: 30 1RF famotidine 20 mg tablet 20 mg PO BEDTIME 90 Days Qty: 90 1RF polyethylene glycol 3350 [Miralax] 17 gram/dose powder 17 g PO DAILY PRN (Reason: constipation) 30 Days Qty: 119 1RF fluocinolone acetonide oil [DermOtic Oil] 0.01 % drops 5 drp otic (ear) left BID 7 Days Qty: 20 0RF triamcinolone acetonide 0.5 % cream 1 appl topical BID Qty: 30 0RF aripiprazole 5 mg tablet 5 mg PO DAILY escitalopram oxalate 10 mg tablet 10 mg PO DAILY Referrals: Angelique Li MD [Primary Care Provider] - 2 days Interventions: ED Discharge Assessment Last Done: 08/22/23 11:27 Discharge Date/Time: 08/22/23 11:28
[2023-08-22 10:08] LABS: MANUAL DIFF FLAG NO
[2023-08-22 10:09] LABS: Basophils Percent Auto 0.4 % (0-2); Eosinophils Absolute Auto 0.1 X10*3/uL (0.0-0.4); Eosinophils Percent Auto 0.8 % (0-4); Hemoglobin 11.4 g/dl (12.0-16.0); Imm Gran Abs Auto 0.02 X10*3/uL (0.00-0.03); Imm Gran Pct Auto 0.3 % (0.0-0.4); Lymphocytes Absolute Auto 1.8 X10*3/uL (1.2-4.9); Lymphocytes Percent Auto 23.6 % (20-40); Mean Corpuscular HGB Conc 30.8 g/dl (31.0-35.0); Mean Corpuscular Volume 84.5 fL (80.0-98.0); Monocytes Absolute Auto 0.6 X10*3/uL (0.1-1.2); Monocytes Percent Auto 7.9 % (2-11); Platelet Count 350 X10*3/uL (160-400); Red Blood Count 4.38 X10*6/uL (4.20-5.50); Red Cell Distribution Width 15.3 % (11.0-16.0); White Blood Count 7.5 X10*3/uL (4.8-10.8)
[2023-08-22] MEDS: Lidocaine HCl 2 % Urojet 10 ML JEL.PF.APP TOPICAL (10:16)
[2023-08-22 10:26] LABS: Alanine Aminotransferase 7 U/L (0-31); Albumin Level 3.8 g/dL (3.5-5.0); Alkaline Phosphatase 70 U/L (39-117); Anion Gap 11 (12-20); Aspartate Amino Transferase 12 U/L (5-31); Bilirubin Total 0.2 mg/dL (0.0-1.0); Blood Urea Nitrogen 19 mg/dL (9-16); Calcium 8.9 mg/dL (8.4-10.2); Carbon Dioxide 29 mmol/L (22-29); Chloride 108 mmol/L (96-108); Creatinine Clr Calc Pharmacy 33.7; Estimated Glomerular Filt Rate 35; Glucose Random 82 mg/dL (60-115); Potassium 4.8 mmol/L (3.3-5.1); Sodium 143 mmol/L (135-145)
[2023-08-22 10:32] VITALS: BP 142/68; PULSE 76; RESP 16; TEMP 36.4; O2SAT 97
== END 2023-08-22 11:28 | disposition home or self-care (01) ==
PROVIDERS: Emergency Provider Emergency Medicine; PCP Internal Medicine
DX: K64.9 Unspecified hemorrhoids (principal); I10 Essential (primary) hypertension; E78.5 Hyperlipidemia, unspecified; I48.0 Paroxysmal atrial fibrillation; Z87.891 Personal history of nicotine dependence; Z86.718 Personal history of other venous thrombosis and embolism; Z79.01 Long term (current) use of anticoagulants
CPT/HCPCS: 36415; 80053; 85025; 99283

== ENCOUNTER 2023-08-29 09:00 | Outpatient (REF) | payer OTHER, SELFPAY | END 2023-08-29 09:01 | disposition home or self-care (01) | LOC: HO.MDS 09:00 | PROVIDERS: Visit Provider Hospitalist | DX: J45.50 Severe persistent asthma, uncomplicated (principal) | CPT/HCPCS: 96372 ==

== ENCOUNTER 2023-09-26 09:10 | Emergency (ER) | payer OTHER, SELFPAY ==
--- NOTE | 2023-09-26 | ECG_ITS ---
Test Reason : CHEST TIGHTNESS Blood Pressure : / mmHG Vent. Rate : 092 BPM Atrial Rate : 092 BPM P-R Int : 152 ms QRS Dur : 084 ms QT Int : 350 ms P-R-T Axes : 027 -21 011 degrees QTc Int : 432 ms Normal sinus rhythm Moderate voltage criteria for LVH, may be normal variant ( R in aVL , Broderick product ) Borderline ECG When compared with ECG of 13-SEP-2022 11:57, No significant change was found Referred By: Beverly Cristobal Electronically Signed By:LOUIE CHAUDHARY
--- NOTE | ~2023-09-26 | XR_ITS ---
EXAMINATION: XR chest 2V CLINICAL INFORMATION: Reason for Exam Shortness of breath COMPARISON: No prior chest x-ray available in our system for comparison at the time of this dictation. TECHNIQUE: XR chest 2V, 2 Views Lungs and Ann-Marie: Mild diffuse interstitial lung marking especially at lung bases possibly mild infiltrates/streaky subsegmental atelectasis. No dense lobar consolidation. Mild prominence of the pulmonary vasculature without bambi failure. Pleura: Normal. Costophrenic angles are sharp. No pneumothorax. Heart: Heart borderline enlarged. Mediastinum: The mediastinum is within normal limits.. Bones: Skeletal structures included are normal for patient's age. XR/XR chest 2V IMPRESSION: * Mild diffuse interstitial lung marking especially at lung bases possibly mild interstitial infiltrates/streaky subsegmental atelectasis. No dense lobar consolidation or pleural effusion. * Heart borderline enlarged. Mild prominence of the pulmonary vasculature without bambi failure.
[2023-09-26 09:19] VITALS: BP 161/65; BP 182/85; PULSE 100; PULSE 98; RESP 18; TEMP 36.8; O2SAT 97; O2SAT 98; BMI 30.5
--- NOTE | 2023-09-26 09:41 | ED.URI ---
HPI - URI/Sore Throat General Chief Complaint: Upper Respiratory Symptoms Stated Complaint: SICK PERSON,COUGH PER EMS Time Seen by Provider: 09/26/23 09:19 Source: patient, EMS and seismic interpreter Mode of arrival: EMS History of Present Illness HPI Narrative: 72-year-old female presents via EMS for persistent cough, sore throat, nasal congestion for 5-6 days and also has complaints chest wall pain especially with coughing. She denies taking anything for cough suppression given her medical comorbidities. She denies any fevers or chills. Related Data Home Medications Medication Instructions Recorded Confirmed escitalopram oxalate 10 mg tablet 10 mg PO DAILY 05/17/22 08/18/23 aripiprazole 5 mg tablet 5 mg PO DAILY 07/09/22 08/18/23 ipratropium 0.5 mg-albuterol 3 mg 3 ml inhalation QID PRN Shortness 07/25/22 08/18/23 (2.5 mg base)/3 mL nebulization Of Breath soln Previous Rx's Medication Instructions Recorded lidocaine 5 % topical patch 1 patch topical DAILY #30 ea 12/24/22 (Lidoderm) lift recliner #1 ea 01/08/23 umeclidinium 62.5 mcg/actuation 1 inh inhalation DAILY #30 ea 02/02/23 blister powder for inhalation (Incruse Ellipta) famotidine 20 mg tablet 20 mg PO BEDTIME 90 days #90 tabs 03/21/23 fluocinolone acetonide oil 0.01 % 5 drp otic (ear) left BID 7 days 03/21/23 ear drops (DermOtic Oil) #20 mL polyethylene glycol 3350 17 17 g PO DAILY PRN constipation 30 03/21/23 gram/dose oral powder (Miralax) days #119 grams rosuvastatin 10 mg tablet (Crestor) 10 mg PO DAILY 90 days #90 tabs 04/24/23 apixaban 5 mg tablet (Eliquis) 5 mg PO BID #60 tabs 06/27/23 prednisone 5 mg tablet 5 mg PO DAILY #30 tabs 06/27/23 levothyroxine 25 mcg tablet 25 mcg PO DAILY 90 days #90 tabs 07/13/23 tamsulosin 0.4 mg capsule (Flomax) 0.4 mg PO DAILY 14 days #14 caps 07/15/23 dronedarone 400 mg tablet (Multaq) 400 mg PO BID 90 days #180 tabs 07/19/23 loratadine 10 mg tablet 10 mg PO DAILY 90 days #90 tabs 07/20/23 albuterol sulfate 90 mcg/actuation 2 puff PO Q6H PRN for wheezing #18 07/25/23 aerosol inhaler (Ventolin HFA) ea losartan 25 mg tablet 25 mg PO DAILY 90 days #90 tabs 07/26/23 triamcinolone acetonide 0.5 % 1 appl topical BID #30 grams 07/26/23 topical cream diltiazem HCl 120 mg 120 mg PO DAILY 90 days #90 caps 07/27/23 capsule,extended release 24 hr (Cardizem CD) lidocaine 5 %-phenylephrine 0.25 1 appl topical DAILY 14 days #28 08/01/23 %-glycern 14.4 %-petrolatm 15 % grams cream (Preparation H Rapid Relief-Lidocaine) hydrocortisone 2.5 % topical cream 1 appl NV BID-QID PRN hemorrhoids 08/04/23 with perineal applicator 30 days #30 grams hydrocortisone 2.5 % topical cream 1 appl NV BID-QID PRN hemorrhoids 08/24/23 with perineal applicator 30 days #30 grams (Proctosol HC) adona pillow seat and cushion #1 ea 09/07/23 quilted wipes #200 ea 09/07/23 albuterol sulfate 2.5 mg/3 mL 2.5 mg (3 mL) inhalation Q6H PRN 09/08/23 (0.083 %) solution for nebulization shortness of breath or wheezing 30 days #180 mL mepolizumab 100 mg/mL subcutaneous 100 mg subcut Q4W #1 mL 09/12/23 syringe (Nucala) amoxicillin 875 mg-potassium 1 tab PO BID 5 days #10 tabs 09/26/23 clavulanate 125 mg tablet Allergies Allergy/AdvReac Type Severity Reaction Status Date / Time sulfamethoxazole Allergy Severe Rash Verified 09/26/23 09:24 [From Bactrim] trimethoprim [From Bactrim] Allergy Severe Rash Verified 09/26/23 09:24 levofloxacin [From LEVAQUIN] Allergy Intermediate RASH SOB, Verified 09/26/23 09:24 DIZZYNESS tramadol AdvReac Severe abdominal Verified 09/26/23 09:24 pain, vomiting acetaminophen AdvReac Intermediate vomitting Verified 09/26/23 09:24 [Tylenol-Codeine #3] atorvastatin [Lipitor] AdvReac Intermediate nausea Verified 09/26/23 09:24 codeine [CODEINE] AdvReac Intermediate NAUSEA & Verified 09/26/23 09:24 VOMITING morphine [MORPHINE] AdvReac Intermediate NAUSEA & Verified 09/26/23 09:24 VOMITING pravastatin AdvReac Intermediate myalgia Verified 09/26/23 09:24 rosuvastatin AdvReac Mild myalgia Verified 09/26/23 09:24 Review of Systems Review of Systems: Pertinent positives and negatives as stated in HPI [facility] Past Medical History Source: nursing notes reviewed Medical History Osteoarthritis of knees, bilateral Mild recurrent major depression Polyarthralgia Osteopenia (~2007) Tubular adenoma of colon (~2009) Breast pain, left Postmenopausal Asthma-COPD overlap syndrome GERD (gastroesophageal reflux disease) HTN (hypertension) Paroxysmal atrial fibrillation (~01/2021) Dyslipidemia Hypothyroidism Pneumonia Eosinophilia Steroid dependent Chronic allergic rhinitis Asthma Surgical History History of right breast biopsy (~1998) History of colonoscopy History of D&C (~2002) History of tubal ligation History of shoulder surgery (~2006) History of nasal polypectomy (~2007) History of knee surgery Family History Family History Father Medical history unknown Mother Alzheimer disease Daughter Lupus Other Arthritis Social History Social History Household Members: None Housing: House Are you a primary clinical manager home care to a significant other at home: No Do you presently have visiting nurse or other home services: Yes Alcohol intake: never Patient Tobacco Use Status: Former Tobacco user Tobacco use type: Cigarette Smoked in Last 30 Days: No e-Cigarette/Vaping Use: Never Used Second Hand Smoke Exposure: No Use of substances other than those prescribed or required for medical reasons: No Advance Directives: No Advance Directives Information Provided: No Advance Directives Date on File: 11/10/20 service: No Current occupational status: disabled Cognitive needs: Yes (cane) Hearing needs: No Vision needs: Yes (glasses) Physical Exam Vital Signs: Vital Signs: Last Vital Signs Temp 98.2 F 09/26/23 09:19 Pulse 84 09/26/23 10:45 Resp 16 09/26/23 10:45 BP 143/64 H 09/26/23 09:45 Pulse Ox 98 09/26/23 09:45 O2 Del Method Room Air 09/26/23 09:45 BMI result Body Mass Index 30.5 VITAL SIGNS: Reviewed. GENERAL: Well developed, well nourished, in no acute distress. HEAD: Normocephalic/atraumatic EYES: PERRLA, EOMI EARS: Ext canals without abnormality, TMs non-bulging and non-erythematous NOSE: Nares patent bilateral OROPHARYNX: no oral lesions noted, posterior pharynx clear and non-erythematous without noted tonsillar enlargement/erythema/exudates NECK: Supple, no adenopathy LUNGS: Coarse rhonchi bilaterally, minimal expiratory wheeze, no tachypnea or increased work of breathing noted. SpO2<98> CARDIOVASCULAR: Regular rate and rhythm without noted murmurs ABDOMEN: Soft, non-tender, non-distended with bowel sounds. MUSCULOSKELETAL: No tenderness, deformities, or effusions noted on gross inspection. EXTREMITIES: No cyanosis, clubbing or edema. SKIN: Inspection of the skin reveals no rashes NEUROLOGIC: Alert and oriented x 4. Strength and sensation to light touch were grossly intact x 4. Medications Administered Discontinued Medications Generic Name Dose Route Start Last Admin Trade Name Freq PRN Reason Stop Dose Admin Albuterol/Ipratropium 3 ml 09/26/23 10:29 09/26/23 10:43 Albuterol/Iprat 2.5/0.5mg 3 Ml Ampul.Neb INHALE 09/26/23 10:30 3 ml ONCE ONE Administration Amoxicillin/Clavulanate Potassium 875 mg 09/26/23 10:29 09/26/23 10:39 Amoxicillin/Potassium Clav 875 Mg Tablet PO 09/26/23 10:30 875 mg ONCE ONE Administration Prednisone 50 mg 09/26/23 10:29 09/26/23 10:39 Prednisone 10 Mg Tablet PO 09/26/23 10:30 50 mg ONCE ONE Administration Medical Decision Making Medical Decision Making MDM Narrative: 72-year-old female with history and clinical presentation, DDX: Viral syndrome, pneumonia, bronchitis, patient is otherwise not tachypneic nor is she tachycardic and she continues to oxygenating well on room air. I reviewed all investigations and there is no leukocytosis or left shift, there is a stable normocytic anemia and no thrombocytopenia. VBG does not demonstrate respiratory acidosis and patient is pCO2 is chronically stable. On review of chemistry indices there is no electrolyte or liver enzyme derangements. There is a stable renal dysfunction. Chest x-ray does demonstrate some evidence to suggest infiltrates and given patient's medical comorbidities will start her on a course of antibiotics, Augmentin with 1st dose to be given here in the emergency room. I did discuss the use of NyQuil with her for cough control. In addition, I did give her 50 mg of prednisone for slight burst in steroid as she is on chronic 5 mg daily. Viral testing negative for flu/COVID. Patient is otherwise discharged home. Differential Diagnosis Differential Diagnoses: The differential diagnosis associated with the presentation includes Please see the discussion above Admission/Observation Consideration of admission/observation: Escalation of care including admission/observation considered Please see the discussion above Lab Data MDM Lab Attestation statement: I reviewed the patient's lab results. Please see the discussion above 09/26/23 09:54 09/26/23 09:54 Labs: Lab Results 09/26/23 09/26/23 Range/Units 09:54 09:59 WBC 8.0 (4.8-10.8) X10*3/uL RBC 4.50 (4.20-5.50) X10*6/uL Hgb 11.6 L (12.0-16.0) g/dl Hct 38.3 (37.0-47.0) % MCV 85.1 (80.0-98.0) fL MCH 25.8 L (27.0-33.0) pg MCHC 30.3 L (31.0-35.0) g/dl RDW 15.2 (11.0-16.0) % Plt Count 392 (160-400) X10*3/uL MPV 9.1 L (9.4-12.3) fL Immature Gran % (Auto) 0.5 H (0.0-0.4) % Neut % (Auto) 70.5 (45-73) % Lymph % (Auto) 21.1 (20-40) % [place] % (Auto) 6.7 (2-11) % Eos % (Auto) 0.6 (0-4) % Baso % (Auto) 0.6 (0-2) % Lymph # (Auto) 1.7 (1.2-4.9) X10*3/uL [place] # (Auto) 0.5 (0.1-1.2) X10*3/uL Eos # (Auto) 0.1 (0.0-0.4) X10*3/uL Baso # (Auto) 0.1 (0.0-0.2) X10*3/uL Abs Immat Gran (auto) 0.04 H (0.00-0.03) X10*3/uL Absolute Neuts (auto) 5.7 (2.0-8.3) x10*3/uL Absolute Nucleated RBC 0.000 (0.0-0.012) X10*3/uL Nucleated RBC % (auto) 0.0 (0.0-0.2) /100WBC VBG pH 7.37 (7.32-7.43) VBG pCO2 47 mmHg VBG pO2 34 mmHg VBG HCO3 28 H (22-26) mmol/L VBG O2 Saturation 48.0 % VBG Base Excess 2.2 mmol/L Sodium 145 (135-145) mmol/L Potassium 4.3 (3.3-5.1) mmol/L Chloride 108 (96-108) mmol/L Carbon Dioxide 26 (22-29) mmol/L Anion Gap 15 (12-20) BUN 20 H (9-16) mg/dL Creatinine 1.64 H (0.5-1.4) mg/dL Estim Creat Clear Calc 30.2 Estimated GFR 31 Random Glucose 99 (60-115) mg/dL Calcium 9.7 D (8.4-10.2) mg/dL Total Bilirubin 0.3 (0.0-1.0) mg/dL AST 15 (5-31) U/L ALT 10 (0-31) U/L Alkaline Phosphatase 83 (39-117) U/L Total Protein 7.7 (6.5-8.0) g/dL Albumin 4.3 (3.5-5.0) g/dL Influenza Type A (PCR) NEGATIVE (Negative) Influenza Type B (PCR) NEGATIVE (Negative) RSV RNA Qual (PCR) NEGATIVE (Negative) SARS-CoV-2 RNA (RT-PCR) NEGATIVE (Negative) Independent Interpretation I performed an independent interpretation of an: EKG Interpretation: Normal sinus rhythm, HR-92, no STEMI, NV/QRS/QTC is within normal limits. Radiology Impression Discussion of test interpretation with radiology: I have reviewed the radiologist's reading. Radiologist Impression: Please see the discussion above External Record Review External record reviewed: Outpatient record, Prior outpatient labs and Prior outpatient radiology Chronic Conditions Patient?s care impacted by: Hypertension and Other CKD, COPD Critical Care Time Critical Care Time Critical Care Time: Yes Total Critical Care Time: 45 Attestation: I personally attest to this time spent taking care of the patient. Discharge Plan Discharge Clinical Impression: Acute bronchitis with COPD Patient Disposition: Home, Self-Care Instructions: Acute Bronchitis (ED), COPD (Chronic Obstructive Pulmonary Disease) (ED) Additional Instructions: 1. Reanudar todos los medicamentos caseros. 2. Es seguro arnel el medicamento NyQuil lilian no DayQuil para controlar la tos. 3. Rahat un seguimiento con acuna m?dico de atenci?n primaria ma?angelique llamando al consultorio. 4. Por favor complete los antibi?ticos que le velez recetado. Regrese a la cat de emergencias si los s?ntomas empeoran. 1. Resume all home medications. 2. It is safe to take the medication NyQuil but not DayQuil for your cough control. 3. Please follow-up with your primary care doctor tomorrow by calling the office. 4. Please complete the antibiotics that you have been prescribed. Return to the ER for any worsening symptoms. Prescriptions: New amoxicillin-pot clavulanate 875-125 mg tablet 1 tab PO BID 5 Days Qty: 10 0RF No Action (DME) lift recliner See Rx Instructions .Route .MEDSUPPLY Qty: 1 0RF Rx Instructions: As directed Incruse Ellipta 62.5 mcg/actuation blister with device 1 inh inhalation DAILY Qty: 30 11RF rosuvastatin [Crestor] 10 mg tablet 10 mg PO DAILY 90 Days Qty: 90 1RF prednisone 5 mg tablet 5 mg PO DAILY Qty: 30 11RF Hold Instructions: resume after completion of prednisone taper Eliquis 5 mg tablet 5 mg PO BID Qty: 60 5RF levothyroxine 25 mcg tablet 25 mcg PO DAILY 90 Days Qty: 90 1RF Multaq 400 mg tablet 400 mg PO BID 90 Days Qty: 180 1RF loratadine 10 mg tablet 10 mg PO DAILY 90 Days Qty: 90 3RF albuterol sulfate [Ventolin HFA] 90 mcg/actuation HFA aerosol inhaler 2 puff PO Q6H PRN (Reason: for wheezing) Qty: 18 12RF losartan 25 mg tablet 25 mg PO DAILY 90 Days Qty: 90 1RF diltiazem HCl [Cardizem CD] 120 mg capsule,extended release 24hr 120 mg PO DAILY 90 Days Qty: 90 3RF Preparation H Rapid Rlf-Lidocn 5-0.25-14.4-15 % cream 1 appl topical DAILY 14 Days Qty: 28 0RF hydrocortisone [Proctosol HC] 2.5 % cream with perineal applicator 1 appl NV BID-QID PRN (Reason: hemorrhoids) 30 Days Qty: 30 0RF (DME) adona pillow seat and cushion See Rx Instructions .Route .MEDSUPPLY Qty: 1 0RF Rx Instructions: As directed (DME) quilted wipes See Rx Instructions .Route .MEDSUPPLY Qty: 200 12RF Rx Instructions: As directed albuterol sulfate 2.5 mg /3 mL (0.083 %) solution for nebulization 2.5 mg inhalation Q6H PRN (Reason: shortness of breath or wheezing) 30 Days Qty: 180 11RF Nucala 100 mg/mL syringe 100 mg subcut Q4W Qty: 1 11RF ipratropium-albuterol 0.5 mg-3 mg(2.5 mg base)/3 mL solution for nebulization 3 ml inhalation QID PRN (Reason: Shortness Of Breath) tamsulosin [Flomax] 0.4 mg capsule 0.4 mg PO DAILY 14 Days Qty: 14 0RF lidocaine [Lidoderm] 5 % adhesive patch,medicated 1 patch topical DAILY Qty: 30 0RF Rx Instructions: leave on most painful area for up to 12 hrs hydrocortisone 2.5 % cream with perineal applicator 1 appl NV BID-QID PRN (Reason: hemorrhoids) 30 Days Qty: 30 1RF famotidine 20 mg tablet 20 mg PO BEDTIME 90 Days Qty: 90 1RF polyethylene glycol 3350 [Miralax] 17 gram/dose powder 17 g PO DAILY PRN (Reason: constipation) 30 Days Qty: 119 1RF fluocinolone acetonide oil [DermOtic Oil] 0.01 % drops 5 drp otic (ear) left BID 7 Days Qty: 20 0RF triamcinolone acetonide 0.5 % cream 1 appl topical BID Qty: 30 0RF aripiprazole 5 mg tablet 5 mg PO DAILY escitalopram oxalate 10 mg tablet 10 mg PO DAILY Referrals: Angelique Li MD [Primary Care Provider] - Print Language: Colombian
[2023-09-26 09:45] VITALS: BP 143/64; PULSE 90; RESP 20; O2SAT 98
[2023-09-26 10:00] LABS: MANUAL DIFF FLAG NO
[2023-09-26 10:01] LABS: Basophils Absolute Auto 0.1 X10*3/uL (0.0-0.2); Basophils Percent Auto 0.6 % (0-2); Eosinophils Absolute Auto 0.1 X10*3/uL (0.0-0.4); Eosinophils Percent Auto 0.6 % (0-4); Hematocrit 38.3 % (37.0-47.0); Hemoglobin 11.6 g/dl (12.0-16.0); Imm Gran Abs Auto 0.04 X10*3/uL (0.00-0.03); Imm Gran Pct Auto 0.5 % (0.0-0.4); Lymphocytes Absolute Auto 1.7 X10*3/uL (1.2-4.9); Lymphocytes Percent Auto 21.1 % (20-40); Mean Corpuscular HGB Conc 30.3 g/dl (31.0-35.0); Mean Corpuscular Hemoglobin 25.8 pg (27.0-33.0); Mean Corpuscular Volume 85.1 fL (80.0-98.0); Mean Platelet Volume 9.1 fL (9.4-12.3); Monocytes Absolute Auto 0.5 X10*3/uL (0.1-1.2); Monocytes Percent Auto 6.7 % (2-11); Neutrophils Absolute Auto 5.7 x10*3/uL (2.0-8.3); Neutrophils Percent Auto 70.5 % (45-73); Platelet Count 392 X10*3/uL (160-400); Red Cell Distribution Width 15.2 % (11.0-16.0)
[2023-09-26 10:16] LABS: VBG Base Excess 2.2 mmol/L; VBG HCO3 28 mmol/L (22-26); VBG pCO2 47 mmHg; VBG pH 7.37 (7.32-7.43); VBG pO2 34 mmHg
[2023-09-26 10:16] LABS: Venous Blood Gas Refer to POC result
[2023-09-26 10:19] LABS: Alanine Aminotransferase 10 U/L (0-31); Albumin Level 4.3 g/dL (3.5-5.0); Alkaline Phosphatase 83 U/L (39-117); Anion Gap 15 (12-20); Aspartate Amino Transferase 15 U/L (5-31); Bilirubin Total 0.3 mg/dL (0.0-1.0); Blood Urea Nitrogen 20 mg/dL (9-16); Calcium 9.7 mg/dL (8.4-10.2); Carbon Dioxide 26 mmol/L (22-29); Chloride 108 mmol/L (96-108); Creatinine Clr Calc Pharmacy 30.2; Estimated Glomerular Filt Rate 31; Glucose Random 99 mg/dL (60-115); Potassium 4.3 mmol/L (3.3-5.1); Sodium 145 mmol/L (135-145); Total Protein 7.7 g/dL (6.5-8.0)
--- NOTE | 2023-09-26 10:26 | PC.NURSE ---
in with pt
[2023-09-26] MEDS: Amoxicillin/Potassium Clav 875 MG TABLET PO (10:39)
[2023-09-26] MEDS: predniSONE 10 MG TABLET 50 MG PO (10:39)
--- NOTE | 2023-09-26 10:42 | PC.NURSE ---
pt medicated per DEC, swallow whole pills w/o any difficulty
[2023-09-26] MEDS: Albuterol/Iprat 2.5/0.5MG 3 ML AMPUL.NEB INHALE (10:43)
[2023-09-26 10:45] VITALS: PULSE 84; RESP 16; O2SAT 99
[2023-09-26 11:58] LABS: Influenza A PCR NEGATIVE (Negative); Influenza B PCR NEGATIVE (Negative); Resp Syncy Virus RNA Qual PCR NEGATIVE (Negative); SARS COV2 PCR INHOUSE NEGATIVE (Negative)
== END 2023-09-26 12:49 | disposition home or self-care (01) ==
PROVIDERS: Emergency Provider Student in an Organized Health Care Education/Training Program; PCP Internal Medicine
DX: J44.0 Chronic obstructive pulmonary disease with (acute) lower respiratory infection (principal); J20.9 Acute bronchitis, unspecified; I10 Essential (primary) hypertension; Z20.822 Contact with and (suspected) exposure to COVID-19; Z20.828 Contact with and (suspected) exposure to other viral communicable diseases
CPT/HCPCS: 0241U; 36415; 71046; 80053; 82803; 85025; 93005; 94640; 99284; 99285

== ENCOUNTER → 2023-09-26 09:36 | Outpatient (BNV) | payer OTHER, SELFPAY | PROVIDERS: Emergency Provider Student in an Organized Health Care Education/Training Program; PCP Internal Medicine; Visit Provider Internal Medicine | DX: R07.89 Other chest pain (principal) | CPT/HCPCS: 93010 ==

== ENCOUNTER 2023-09-30 09:00 | Outpatient (REF) | payer OTHER, SELFPAY | END 2023-09-30 09:01 | disposition home or self-care (01) | LOC: HO.MDS 09:00 | PROVIDERS: PCP Internal Medicine; Visit Provider Hospitalist | DX: J45.50 Severe persistent asthma, uncomplicated (principal) | CPT/HCPCS: 96372; 99212; J2182 ==

== ENCOUNTER 2023-09-30 09:19 | Outpatient (AMB) | payer OTHER, SELFPAY ==
--- NOTE | 2023-09-30 09:29 | A.OFFVIS_ITS ---
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 Required: No Allergies sulfamethoxazole [From Bactrim] Allergy (Severe, Verified 09/30/23 09:32) Rash trimethoprim [From Bactrim] Allergy (Severe, Verified 09/30/23 09:32) Rash levofloxacin [From LEVAQUIN] Allergy (Intermediate, Verified 09/30/23 09:32) RASH SOB, DIZZYNESS tramadol Adverse Reaction (Severe, Verified 09/30/23 09:32) abdominal pain, vomiting acetaminophen [Tylenol-Codeine #3] Adverse Reaction (Intermediate, Verified 09/30/23 09:32) vomitting atorvastatin [Lipitor] Adverse Reaction (Intermediate, Verified 09/30/23 09:32) nausea codeine [CODEINE] Adverse Reaction (Intermediate, Verified 09/30/23 09:32) NAUSEA & VOMITING morphine [MORPHINE] Adverse Reaction (Intermediate, Verified 09/30/23 09:32) NAUSEA & VOMITING pravastatin Adverse Reaction (Intermediate, Verified 09/30/23 09:32) myalgia rosuvastatin Adverse Reaction (Mild, Verified 09/30/23 09:32) myalgia HPI HPI Comments History of Present Illness Details The patient is a 72-year-old woman with a known history of 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 She also has had chronic obstructive disease with chronic bronchitis requiring multiple hospitalizations and multiple prednisone tapers. Recently she was tapered off the prednisone and she has had worsening respiratory symptoms. Today she has significant wheezing. Also, she has questions about inhaler she does not feel like the working. Today she is found to have significant wheezing so therefore I will give her Solu- Medrol injection. She was approved for Nucala which I very happy about. She is going to call the infusion center and get that scheduled MIGUELINA in order to start therapy for significant eosinophilic asthma. 10/16/2021 the patient is a telephone visit. Overall the patient has been doing a lot better since starting biologic therapy. The Nucala injections have been affecting beneficial. She has been able to continue her low-dose prednisone dose. Has not required any increases for tapers. I am hoping to be able to decrease her maintenance prednisone down further. We have to monitor closely for any symptoms or signs consistent with adrenal insufficiency. She continues with the current respiratory regimen. She has not had any hospitalizations due to her asthma since starting biologic therapy. Overall the patient is doing very well. the patient was asking about her other allergy medicines. I did recommend that she leave all her other allergy therapies in place as she decreases the prednisone. Once we were able to decrease or stop the prednisone then we can work on the escalating some her other therapies if possible. 04/01/2023 the patient is here for pulmonary follow-up visit. She continues to be extremely well controlled with the Nucala biologic therapy. She has been very happy with the results specially since she was very reluctant in the 1st place. She has not required any hospitalizations or ER visits. She has not required any prednisone tapers. She does continue to wean herself very slowly off the prednisone due to the fact that she was on it for many years. She is down to about 5 mg daily. She does have hip pains and also some other musculoskeletal discomfort is that have been developing then bothering her. It may be due to the fact that she is coming off the prednisone all and maybe another element that is developing. She will be following up with her primary care doctor soon for this issues. In the meantime she is going to continue the Nucala injections. This will be monthly. Seems to be tolerating them well without any adverse effects. The patient will also continue with Wixela and Incruse daily as maintenance therapy. 09/30/2023 The patientis here for a sick visit. Had +sick contact over [place]. +RSV. as been having worsening cough and wheezing. Moderate inseverity. Associated with coughing and chest tightness.Had on prednisone taper with some improvement. She has been using her nebulizer twice a day. She continues on the Nucala every 4 weeks, which has been very effective for her. . [facility] Medical History Osteoarthritis of knees, bilateral Mild recurrent major depression Polyarthralgia Osteopenia (~2007) Tubular adenoma of colon (~2009) Breast pain, left Postmenopausal Asthma-COPD overlap syndrome GERD (gastroesophageal reflux disease) HTN (hypertension) Paroxysmal atrial fibrillation (~01/2021) Dyslipidemia Hypothyroidism Pneumonia Eosinophilia Steroid dependent Chronic allergic rhinitis Asthma Surgical History History of right breast biopsy (~1998) History of colonoscopy History of D&C (~2002) History of tubal ligation History of shoulder surgery (~2006) History of nasal polypectomy (~2007) History of knee surgery Family History Father Medical history unknown Mother Alzheimer disease Daughter Lupus Other Arthritis Social History Household Members: None Housing: House Are you a primary health care specialist to a significant other at home: No Do you presently have visiting nurse or other home services: Yes Alcohol intake: never Patient Tobacco Use Status: Former Tobacco user Tobacco use type: Cigarette e-Cigarette/Vaping Use: Never Used Second Hand Smoke Exposure: No Advance Directives Date on File: 11/10/20 service: No Current occupational status: disabled Cognitive needs: Yes (cane) Hearing needs: No Vision needs: Yes (glasses) Review of Systems Const Reports weight gain Eyes Reports no additional complaints ENT Denies dry mouth Card Reports no additional complaints and Reports dyspnea on exertion Resp Reports change in phlegm color, Reports chest congestion, Reports cough, Reports dyspnea on exertion and Reports wheezing GI Denies abdominal pain, Denies diarrhea and Denies vomiting Reports no additional complaints Musc Reports back pain and Reports arthralgias Skin/Breast Denies rash Aller/Immun Reports wheezing Physical Exam Vital Signs: Last Vital Signs Pulse 84 09/30/23 09:30 BP 134/70 09/30/23 09:30 Pulse Ox 98 09/30/23 09:30 Oxygen Delivery Method Room Air 09/30/23 09:30 BMI result Body Mass Index 30.5 Const General: healthy appearing and comfortable Nutritional Appearance: obese Orientation/consciousness: oriented to person HEENT Head: Yes normocephalic Neck Neck: Yes supple Chest Chest palpation & inspection: normal inspection of the chest Resp Effort & Inspection: normal respiratory effort and able to speak in complete sentences Auscultation: wheezes and diminished lung sounds Cardio Rate: regular rate Rhythm: regular rhythm Heart sounds: S1 normal heart sound present and S2 normal heart sound present GI Inspection: Yes normal to inspection Palpation (GI): nontender Back/Spine/Pelvis Other: Mild paraspinal muscle tenderness in the lower thoracic area Skin General skin exam: no rashes or lesions noted Neuro General: oriented to person Extrem General: Yes no clubbing, cyanosis or edema Assessment & Plan Assessment & Plan (1) Asthma: Code(s): J45.909 - Unspecified asthma, uncomplicated Qualifiers: Asthma severity: severe Asthma persistence: persistent Asthma complication type: with acute exacerbation Qualified Code(s): J45.51 - Severe persistent asthma with (acute) exacerbation (2) Steroid dependent: Code(s): F19.20 - Other psychoactive substance dependence, uncomplicated (3) Chronic allergic rhinitis: Code(s): J30.9 - Allergic rhinitis, unspecified (4) Paroxysmal atrial fibrillation: Onset Date: ~01/2021 Code(s): I48.0 - Paroxysmal atrial fibrillation Plan Xopenex as needed start Doxycycline start Prednisone taper mucinex DM Continue Nucala therapy monthly Claritin as needed Continue anticoagulation with Eliquis Follow-up in 3-4 months Medications: New doxycycline hyclate 100 mg PO BID 10 days 20 caps 0RF prednisone PO daily; Take 2 tablets by mouth x 5 days, then 1 tab daily x 5 days. 10 days 15 tabs 0RF dextromethorphan-guaifenesin 5-100 mg/5 mL (Robitussin Cough-Chest Congestion DM) 10 mL PO Q4H 14 days PRN 500 mL 0RF cough Coding Level of Care Code Est Pt Level 4 (30913) Diagnoses Severe persistent asthma with acute exacerbation J45.51 Asthma severity: severe Asthma persistence: persistent Asthma complication type: with acute exacerbation Steroid dependent F19.20 Chronic allergic rhinitis J30.9 Paroxysmal atrial fibrillation I48.0 Time Spent (min) 17
[2023-09-30 09:30] VITALS: BP 134/70; PULSE 84; O2SAT 98; BMI 30.5
== END 2023-09-30 09:49 | disposition home or self-care (01) ==
PROVIDERS: PCP Internal Medicine; Visit Provider Hospitalist
DX: J45.51 Severe persistent asthma with (acute) exacerbation (principal); F19.20 Other psychoactive substance dependence, uncomplicated; J30.9 Allergic rhinitis, unspecified; I48.0 Paroxysmal atrial fibrillation
CPT/HCPCS: 99214

== ENCOUNTER 2023-10-31 09:57 | Outpatient (REF) | payer OTHER, SELFPAY | END 2023-10-31 09:58 | disposition home or self-care (01) | LOC: HO.MDS 09:57 | PROVIDERS: Visit Provider Hospitalist | DX: J45.50 Severe persistent asthma, uncomplicated (principal) | CPT/HCPCS: 96372 ==

== ENCOUNTER 2023-11-07 07:35 | Emergency (ER) | payer OTHER, SELFPAY ==
--- NOTE | ~2023-11-07 | XR_ITS ---
EXAMINATION: XR CHEST CLINICAL INFORMATION: 73-year-old female with epigastric pain COMPARISON: 09/26/2023 TECHNIQUE: Frontal view of the chest was obtained. FINDINGS: No significant abnormality is noted involving the heart, lungs, mediastinum, bony thorax or soft tissues. There is no abnormal gas collection below the diaphragm. XR/XR chest 1V IMPRESSION: Unremarkable examination.
[2023-11-07 07:40] VITALS: BP 168/88; PULSE 103; O2SAT 97
--- NOTE | 2023-11-07 07:43 | ECG_ITS ---
Test Reason : NAUSEA,EPIGASTRIC PAIN Blood Pressure : / mmHG Vent. Rate : 099 BPM Atrial Rate : 099 BPM P-R Int : 138 ms QRS Dur : 078 ms QT Int : 326 ms P-R-T Axes : 038 -21 016 degrees QTc Int : 418 ms Normal sinus rhythm Moderate voltage criteria for LVH, may be normal variant ( R in aVL , [place] product ) Borderline ECG When compared with ECG of 26-SEP-2023 09:36, No significant change was found Referred By: Brock Peterson Electronically Signed By:LOUIE CHAUDHARY
--- NOTE | 2023-11-07 07:45 | ED_ITS ---
HPI - General Adult General Chief complaint: General Medical Stated complaint: BODYACHES,FEVER,CHILLS,NAUSEA,COUGH PER EMS Time Seen by Provider: 11/07/23 07:39 Source: patient and EMS Mode of arrival: EMS Limitations: no limitations History of Present Illness HPI narrative: 73-year-old female came in by EMS for evaluation of generalized body ache, fever, chills, nausea, dry coughing,decreased p.o. intake and decreased appetite. Symptoms started 2 days ago, declined exposure to a sick contacts, no recent travel, no CP, no SOB. Related Data Home Medications Medication Instructions Recorded Confirmed escitalopram oxalate 10 mg tablet 10 mg PO DAILY 05/17/22 08/18/23 aripiprazole 5 mg tablet 5 mg PO DAILY 07/09/22 08/18/23 ipratropium 0.5 mg-albuterol 3 mg 3 ml inhalation QID PRN Shortness 07/25/22 08/18/23 (2.5 mg base)/3 mL nebulization Of Breath soln nebulizers 09/30/23 Previous Rx's Medication Instructions Recorded lidocaine 5 % topical patch 1 patch topical DAILY #30 ea 12/24/22 (Lidoderm) lift recliner #1 ea 01/08/23 umeclidinium 62.5 mcg/actuation 1 inh inhalation DAILY #30 ea 02/02/23 blister powder for inhalation (Incruse Ellipta) fluocinolone acetonide oil 0.01 % 5 drp otic (ear) left BID 7 days 03/21/23 ear drops (DermOtic Oil) #20 mL polyethylene glycol 3350 17 17 g PO DAILY PRN constipation 30 03/21/23 gram/dose oral powder (Miralax) days #119 grams apixaban 5 mg tablet (Eliquis) 5 mg PO BID #60 tabs 06/27/23 prednisone 5 mg tablet 5 mg PO DAILY #30 tabs 06/27/23 levothyroxine 25 mcg tablet 25 mcg PO DAILY 90 days #90 tabs 07/13/23 tamsulosin 0.4 mg capsule (Flomax) 0.4 mg PO DAILY 14 days #14 caps 07/15/23 dronedarone 400 mg tablet (Multaq) 400 mg PO BID 90 days #180 tabs 07/19/23 loratadine 10 mg tablet 10 mg PO DAILY 90 days #90 tabs 07/20/23 albuterol sulfate 90 mcg/actuation 2 puff PO Q6H PRN for wheezing #18 07/25/23 aerosol inhaler (Ventolin HFA) ea losartan 25 mg tablet 25 mg PO DAILY 90 days #90 tabs 07/26/23 triamcinolone acetonide 0.5 % 1 appl topical BID #30 grams 07/26/23 topical cream diltiazem HCl 120 mg 120 mg PO DAILY 90 days #90 caps 07/27/23 capsule,extended release 24 hr (Cardizem CD) lidocaine 5 %-phenylephrine 0.25 1 appl topical DAILY 14 days #28 08/01/23 %-glycern 14.4 %-petrolatm 15 % grams cream (Preparation H Rapid Relief-Lidocaine) hydrocortisone 2.5 % topical cream 1 appl [place] BID-QID PRN hemorrhoids 08/04/23 with perineal applicator 30 days #30 grams hydrocortisone 2.5 % topical cream 1 appl IL BID-QID PRN hemorrhoids 08/24/23 with perineal applicator 30 days #30 grams (Proctosol HC) adona pillow seat and cushion #1 ea 09/07/23 quilted wipes #200 ea 09/07/23 albuterol sulfate 2.5 mg/3 mL 2.5 mg (3 mL) inhalation Q6H PRN 09/08/23 (0.083 %) solution for nebulization shortness of breath or wheezing 30 days #180 mL mepolizumab 100 mg/mL subcutaneous 100 mg subcut Q4W #1 mL 09/12/23 syringe (Nucala) amoxicillin 875 mg-potassium 1 tab PO BID 5 days #10 tabs 09/26/23 clavulanate 125 mg tablet dextromethorphan-guaifenesin 5 10 ml PO Q4H PRN cough 14 days 09/30/23 mg-100 mg/5 mL oral liquid #500 mL (Robitussin Cough-Chest Congestion DM) doxycycline hyclate 100 mg capsule 100 mg PO BID 10 days #20 caps 09/30/23 prednisone 10 mg tablet See Rx Instructions PO DAILY 10 09/30/23 days #15 tabs omeprazole 20 mg capsule,delayed 20 mg PO DAILY PRN heartburn 30 10/19/23 release days #30 caps sennosides 8.6 mg tablet (senna) 8.6 mg PO BEDTIME PRN constipation 10/19/23 30 days #30 tabs rosuvastatin 10 mg tablet (Crestor) 10 mg PO DAILY 90 days #90 tabs 10/20/23 famotidine 20 mg tablet 20 mg PO BEDTIME 90 days #90 tabs 10/26/23 Allergies Allergy/AdvReac Type Severity Reaction Status Date / Time sulfamethoxazole Allergy Severe Rash Verified 09/30/23 09:32 [From Bactrim] trimethoprim [From Bactrim] Allergy Severe Rash Verified 09/30/23 09:32 levofloxacin [From LEVAQUIN] Allergy Intermediate RASH SOB, Verified 09/30/23 09:32 DIZZYNESS tramadol AdvReac Severe abdominal Verified 09/30/23 09:32 pain, vomiting acetaminophen AdvReac Intermediate vomitting Verified 09/30/23 09:32 [Tylenol-Codeine #3] atorvastatin [Lipitor] AdvReac Intermediate nausea Verified 09/30/23 09:32 codeine [CODEINE] AdvReac Intermediate NAUSEA & Verified 09/30/23 09:32 VOMITING morphine [MORPHINE] AdvReac Intermediate NAUSEA & Verified 09/30/23 09:32 VOMITING pravastatin AdvReac Intermediate myalgia Verified 09/30/23 09:32 rosuvastatin AdvReac Mild myalgia Verified 09/30/23 09:32 Review of Systems 2 Review of Systems: all other systems are reviewed and are negative Constitutional: Reports as per HPI and Reports no additional constitutional complaints Eyes: Reports as per HPI and Reports no additional eye complaints Reports system reviewed and no additional complaints, except as documented Cardiovascular: Reports as per HPI and Reports no additional cardiovascular complaints Respiratory: Reports as per HPI and Reports no additional respiratory complaints Gastrointestinal: Reports as per HPI and Reports no additional gastrointestinal complaints Genitourinary: Reports no additional female genitourinary complaints Musculoskeletal: Reports no additional musculoskeletal complaints Skin/Breast: Reports system reviewed and no additional complaints, except as docu Psychiatric: Reports no additional psychiatric complaints Endocrine: Reports no additional endocrine complaints Hematologic/Lymphatic: Reports no additional hematologic/lymphatic complaints Allergic/Immunologic: Reports no additional allergic/immunologic complaints Reports system reviewed and no additional complaints, except as documented and Reports Abnormal speech present PMFSH Past Medical History Medical History Osteoarthritis of knees, bilateral Mild recurrent major depression Polyarthralgia Osteopenia (~2007) Tubular adenoma of colon (~2009) Breast pain, left Postmenopausal Asthma-COPD overlap syndrome GERD (gastroesophageal reflux disease) HTN (hypertension) Paroxysmal atrial fibrillation (~01/2021) Dyslipidemia Hypothyroidism Pneumonia Eosinophilia Steroid dependent Chronic allergic rhinitis Asthma Surgical History History of right breast biopsy (~1998) History of colonoscopy History of D&C (~2002) History of tubal ligation History of shoulder surgery (~2006) History of nasal polypectomy (~2007) History of knee surgery Family History Family History Father Medical history unknown Mother Alzheimer disease Daughter Lupus Other Arthritis Social History Social History Household Members: None Housing: House Are you a primary career technical supervisor to a significant other at home: No Do you presently have visiting nurse or other home services: Yes Alcohol intake: never Patient Tobacco Use Status: Former Tobacco user Tobacco use type: Cigarette Smoked in Last 30 Days: No e-Cigarette/Vaping Use: Never Used Second Hand Smoke Exposure: No Use of substances other than those prescribed or required for medical reasons: No Advance Directives: No Advance Directives Information Provided: No Advance Directives Date on File: 11/10/20 service: No Current occupational status: disabled Cognitive needs: Yes (cane) Hearing needs: No Vision needs: Yes (glasses) Physical Exam ED Vital Signs: Vital Signs - 24 hr 11/07/23 07:49 11/07/23 08:00 Temperature 99.1 F Pulse Rate 98 Respiratory Rate 16 16 Blood Pressure 150/76 H Pulse Oximetry 96 Oxygen Delivery Method Room Air BMI result Body Mass Index 30.5 Vital signs have been reviewed and appear to be correct. Blood pressure elevated. Heart rate normal. Respiratory rate normal. Temperature normal. Oxygen saturation normal. Appearance: Alert. Oriented X3. No acute distress. Head: Normal external exam. Normocephalic. Atraumatic. No Clark signs noted. No raccoon eyes noted Eyes: PERRLA. EOMI. Conjunctiva and sclera normal. Eyelids normal. ENT: TM's Normal. Pharynx normal. Uvula midline. Moist mucous membranes. No trismus noted. No drooling noted. No muffled voice noted. Neck: Normal inspection. Neck supple. FROM. No adenopathy. Thyroid Normal. No meningeal signs. No neck mass noted. CVS: Normal heart rate and rhythm. Heart sound normal. No murmurs noted. Pulses normal throughout. Respiratory: No respiratory distress. Painless inspiration. Breath sounds normal. No wheezes/rales/rhonchi noted. Chest nontender. No accessory muscle usage noted or decreased air movement noted. Abdomen: Soft, mild epigastric tenderness with no rebound tenderness or guarding.Bowel sounds normal in all 4 quadrants. No distention noted. No organomegaly noted. No visible injury noted. Back: No CVA tenderness. Full range of motion noted. Skin: Skin warm and dry. Normal skin color. Normal skin turgor. No rashes/lesions/lacerations noted. Extremities: No lower extremity edema. Extremities exhibit normal range of motion. Extremities nontender. Neuro: Oriented X 3. Cranial nerve exam: II-XII are grossly intact No motor deficit. No sensory deficit. Reflexes normal. Course Reevaluation(s) Reevaluation #1: 73-year-old female came in with generalized body ache, patient is positive for COVID 19 infection. Otherwise labs at patient is baseline, reveals no anemia, dehydration, ACS. Patient is able to tolerate p.o. intake will discharge to follow-up with PCP patient was instructed to self quarantine, frequent hand washing, use a mask at all times. Time: 09:46 Medications Administered Discontinued Medications Generic Name Dose Route Start Last Admin Trade Name Freq PRN Reason Stop Dose Admin Famotidine 20 mg 11/07/23 07:43 11/07/23 08:12 Famotidine/Pf 20 Mg/2 Ml Vial IVPUSH 11/07/23 07:44 20 mg ONCE ONE Administration Ondansetron HCl 4 mg 11/07/23 07:43 11/07/23 08:12 Ondansetron Hcl 4 Mg/2 Ml Vial IVPUSH 11/07/23 07:44 4 mg ONCE ONE Administration Medical Decision Making Differential Diagnosis Differential Diagnoses: The differential diagnosis associated with the presentation includes ( COVID-19 infection, viral infection, pneumonia, pleural effusion, dehydration, anemia , electrolyte abnormality, ACS.) Admission/Observation Consideration of admission/observation: Escalation of care including admission/observation considered Lab Data MDM Lab Attestation statement: I reviewed the patient's lab results. 11/07/23 08:03 11/07/23 08:03 Labs: Lab Results 11/07/23 Range/Units 08:03 WBC 7.3 (4.8-10.8) X10*3/uL RBC 4.71 (4.20-5.50) X10*6/uL Hgb 12.2 (12.0-16.0) g/dl Hct 39.7 (37.0-47.0) % MCV 84.3 (80.0-98.0) fL MCH 25.9 L (27.0-33.0) pg MCHC 30.7 L (31.0-35.0) g/dl RDW 15.5 (11.0-16.0) % Plt Count 368 (160-400) X10*3/uL MPV 8.9 L (9.4-12.3) fL Immature Gran % (Auto) 0.4 (0.0-0.4) % Neut % (Auto) 78.5 H (45-73) % Lymph % (Auto) 11.1 L (20-40) % [place] % (Auto) 9.6 (2-11) % Eos % (Auto) 0.0 (0-4) % Baso % (Auto) 0.4 (0-2) % Lymph # (Auto) 0.8 L (1.2-4.9) X10*3/uL [place] # (Auto) 0.7 (0.1-1.2) X10*3/uL Eos # (Auto) 0.0 (0.0-0.4) X10*3/uL Baso # (Auto) 0.0 (0.0-0.2) X10*3/uL Abs Immat Gran (auto) 0.03 (0.00-0.03) X10*3/uL Absolute Neuts (auto) 5.7 (2.0-8.3) x10*3/uL Absolute Nucleated RBC 0.000 (0.0-0.012) X10*3/uL Nucleated RBC % (auto) 0.0 (0.0-0.2) /100WBC Sodium 141 (135-145) mmol/L Potassium 4.3 (3.3-5.1) mmol/L Chloride 103 (96-108) mmol/L Carbon Dioxide 23 (22-29) mmol/L Anion Gap 19 (12-20) BUN 15 (9-16) mg/dL Creatinine 1.60 H (0.5-1.4) mg/dL Estim Creat Clear Calc 30.4 Estimated GFR 32 Random Glucose 95 (60-115) mg/dL Calcium 9.5 (8.4-10.2) mg/dL Total Bilirubin 0.4 (0.0-1.0) mg/dL Direct Bilirubin 0.1 (0.0-0.5) mg/dL AST 15 (5-31) U/L ALT 10 (0-31) U/L Alkaline Phosphatase 75 (39-117) U/L Troponin I High Sens 3.6 (<3.5-17.0) ng/L Total Protein 7.6 (6.5-8.0) g/dL Albumin 4.1 (3.5-5.0) g/dL Lipase 22 (8-78) U/L Influenza Type A (PCR) NEGATIVE (Negative) Influenza Type B (PCR) NEGATIVE (Negative) RSV RNA Qual (PCR) NEGATIVE (Negative) SARS-CoV-2 RNA (RT-PCR) POSITIVE A (Negative) Independent Interpretation I performed an independent interpretation of an: Plain X-Ray ( Chest: Unremarkable examination.) Radiology Impression Discussion of test interpretation with radiology: I have reviewed the radiologist's reading. Discharge Plan Discharge Clinical Impression: COVID-19 virus infection Patient Disposition: Home, Self-Care Instructions: COVID-19 (Coronavirus Disease 2019) (ED) Additional Instructions: self quarantine for 1 week, frequent hand washing, use the face mask at all times, keep social distancing. Prescriptions: No Action (DME) lift recliner See Rx Instructions .Route .MEDSUPPLY Qty: 1 0RF Rx Instructions: As directed Incruse Ellipta 62.5 mcg/actuation blister with device 1 inh inhalation DAILY Qty: 30 11RF prednisone 5 mg tablet 5 mg PO DAILY Qty: 30 11RF Hold Instructions: resume after completion of prednisone taper Eliquis 5 mg tablet 5 mg PO BID Qty: 60 5RF levothyroxine 25 mcg tablet 25 mcg PO DAILY 90 Days Qty: 90 1RF Multaq 400 mg tablet 400 mg PO BID 90 Days Qty: 180 1RF loratadine 10 mg tablet 10 mg PO DAILY 90 Days Qty: 90 3RF albuterol sulfate [Ventolin HFA] 90 mcg/actuation HFA aerosol inhaler 2 puff PO Q6H PRN (Reason: for wheezing) Qty: 18 12RF losartan 25 mg tablet 25 mg PO DAILY 90 Days Qty: 90 1RF diltiazem HCl [Cardizem CD] 120 mg capsule,extended release 24hr 120 mg PO DAILY 90 Days Qty: 90 3RF Preparation H Rapid Rlf-Lidocn 5-0.25-14.4-15 % cream 1 appl topical DAILY 14 Days Qty: 28 0RF hydrocortisone [Proctosol HC] 2.5 % cream with perineal applicator 1 appl IL BID-QID PRN (Reason: hemorrhoids) 30 Days Qty: 30 0RF (DME) adona pillow seat and cushion See Rx Instructions .Route .MEDSUPPLY Qty: 1 0RF Rx Instructions: As directed (DME) quilted wipes See Rx Instructions .Route .MEDSUPPLY Qty: 200 12RF Rx Instructions: As directed albuterol sulfate 2.5 mg /3 mL (0.083 %) solution for nebulization 2.5 mg inhalation Q6H PRN (Reason: shortness of breath or wheezing) 30 Days Qty: 180 11RF Nucala 100 mg/mL syringe 100 mg subcut Q4W Qty: 1 11RF sennosides [senna] 8.6 mg tablet 8.6 mg PO BEDTIME PRN (Reason: constipation) 30 Days Qty: 30 0RF omeprazole 20 mg capsule,delayed release(DR/EC) 20 mg PO DAILY PRN (Reason: heartburn) 30 Days Qty: 30 0RF rosuvastatin [Crestor] 10 mg tablet 10 mg PO DAILY 90 Days Qty: 90 1RF famotidine 20 mg tablet 20 mg PO BEDTIME 90 Days Qty: 90 1RF ipratropium-albuterol 0.5 mg-3 mg(2.5 mg base)/3 mL solution for nebulization 3 ml inhalation QID PRN (Reason: Shortness Of Breath) tamsulosin [Flomax] 0.4 mg capsule 0.4 mg PO DAILY 14 Days Qty: 14 0RF amoxicillin-pot clavulanate 875-125 mg tablet 1 tab PO BID 5 Days Qty: 10 0RF lidocaine [Lidoderm] 5 % adhesive patch,medicated 1 patch topical DAILY Qty: 30 0RF Rx Instructions: leave on most painful area for up to 12 hrs hydrocortisone 2.5 % cream with perineal applicator 1 appl IL BID-QID PRN (Reason: hemorrhoids) 30 Days Qty: 30 1RF polyethylene glycol 3350 [Miralax] 17 gram/dose powder 17 g PO DAILY PRN (Reason: constipation) 30 Days Qty: 119 1RF fluocinolone acetonide oil [DermOtic Oil] 0.01 % drops 5 drp otic (ear) left BID 7 Days Qty: 20 0RF triamcinolone acetonide 0.5 % cream 1 appl topical BID Qty: 30 0RF aripiprazole 5 mg tablet 5 mg PO DAILY escitalopram oxalate 10 mg tablet 10 mg PO DAILY (DME) nebulizers [facility] See Rx Instructions .ROUTE Rx Instructions: As directed doxycycline hyclate 100 mg capsule 100 mg PO BID 10 Days Qty: 20 0RF prednisone 10 mg tablet See Rx Instructions PO DAILY 10 Days Qty: 15 0RF Rx Instructions: PO daily; Take 2 tablets by mouth x 5 days, then 1 tab daily x 5 days. Robitussin Cough-Chest Tavon DM 5-100 mg/5 mL liquid 10 ml PO Q4H PRN (Reason: cough) 14 Days Qty: 500 0RF Referrals: Angelique Li MD [Primary Care Provider] -
[2023-11-07 07:49] VITALS: BP 150/76; PULSE 98; RESP 16; TEMP 37.3; O2SAT 96; BMI 30.5
[2023-11-07 08:00] VITALS: RESP 16
[2023-11-07] MEDS: ondansetron HCL 4 MG/2 ML VIAL IVPUSH (08:12)
[2023-11-07] MEDS: Famotidine/PF 20 MG/2 ML VIAL IVPUSH (08:12)
[2023-11-07 08:21] LABS: MANUAL DIFF FLAG NO
[2023-11-07 08:22] LABS: Basophils Percent Auto 0.4 % (0-2); Hematocrit 39.7 % (37.0-47.0); Hemoglobin 12.2 g/dl (12.0-16.0); Imm Gran Abs Auto 0.03 X10*3/uL (0.00-0.03); Imm Gran Pct Auto 0.4 % (0.0-0.4); Lymphocytes Absolute Auto 0.8 X10*3/uL (1.2-4.9); Lymphocytes Percent Auto 11.1 % (20-40); Mean Corpuscular HGB Conc 30.7 g/dl (31.0-35.0); Mean Corpuscular Hemoglobin 25.9 pg (27.0-33.0); Mean Corpuscular Volume 84.3 fL (80.0-98.0); Mean Platelet Volume 8.9 fL (9.4-12.3); Monocytes Absolute Auto 0.7 X10*3/uL (0.1-1.2); Monocytes Percent Auto 9.6 % (2-11); Neutrophils Absolute Auto 5.7 x10*3/uL (2.0-8.3); Neutrophils Percent Auto 78.5 % (45-73); Platelet Count 368 X10*3/uL (160-400); Red Blood Count 4.71 X10*6/uL (4.20-5.50); Red Cell Distribution Width 15.5 % (11.0-16.0); White Blood Count 7.3 X10*3/uL (4.8-10.8)
[2023-11-07 08:37] LABS: Alanine Aminotransferase 10 U/L (0-31); Albumin Level 4.1 g/dL (3.5-5.0); Alkaline Phosphatase 75 U/L (39-117); Anion Gap 19 (12-20); Aspartate Amino Transferase 15 U/L (5-31); Bilirubin Direct 0.1 mg/dL (0.0-0.5); Bilirubin Total 0.4 mg/dL (0.0-1.0); Blood Urea Nitrogen 15 mg/dL (9-16); Calcium 9.5 mg/dL (8.4-10.2); Carbon Dioxide 23 mmol/L (22-29); Chloride 103 mmol/L (96-108); Creatinine Clr Calc Pharmacy 30.4; Estimated Glomerular Filt Rate 32; Glucose Random 95 mg/dL (60-115); Lipase 22 U/L (8-78); Potassium 4.3 mmol/L (3.3-5.1); Sodium 141 mmol/L (135-145); Total Protein 7.6 g/dL (6.5-8.0)
[2023-11-07 08:44] LABS: Troponin-I High Sensitivity 3.6 ng/L (<3.5-17.0)
[2023-11-07 09:01] LABS: Influenza A PCR NEGATIVE (Negative); Influenza B PCR NEGATIVE (Negative); Resp Syncy Virus RNA Qual PCR NEGATIVE (Negative); SARS COV2 PCR INHOUSE POSITIVE (Negative)
[2023-11-07 09:49] LABS: Appearance Urine Clear; Color Urine Dark Yellow; Glucose Urine UA Negative (Negative); Leukocyte Esterase Urine Negative (Negative); Nitrite Urine Negative (Negative); PH 5.5 (5.0-9.0); Specific Gravity - Urine 1.025 (1.005-1.025); UMIC TRIGGER UACC YES; Urine Blood Small (1+) (Negative); Urine Ketones 40 mg/dL (Negative); Urine Protein 100 (2+) mg/dL (Neg-Trace)
[2023-11-07 09:51] VITALS: BP 151/77; PULSE 93; RESP 16; TEMP 36.8; O2SAT 96
[2023-11-07 09:54] LABS: Bacteria Urine None Seen (None Seen); Hyaline Casts Urine 0-2 /LPF (0-2); Squamous Epithelial Cell Urine 0-2 /HPF (0-2); WBC Urine 0-5 /HPF (0-5)
== END 2023-11-07 10:59 | disposition home or self-care (01) ==
PROVIDERS: Emergency Provider Emergency Medicine; PCP Internal Medicine
DX: U07.1 COVID-19 (principal); M79.10 Myalgia, unspecified site; R11.2 Nausea with vomiting, unspecified; R10.13 Epigastric pain; R05.9 Cough, unspecified; Z79.899 Other long term (current) drug therapy; Z87.891 Personal history of nicotine dependence
CPT/HCPCS: 0241U; 36415; 71045; 80048; 80076; 81001; 83690; 84484; 85025; 93005; 96374; 96375; 99284; J2405

== ENCOUNTER 2023-11-17 09:59 | Emergency (ER) | payer OTHER, SELFPAY ==
--- NOTE | ~2023-11-17 | XR_ITS ---
EXAMINATION: XR CHEST CLINICAL INFORMATION: Cough. COMPARISON: Most recent chest radiograph dated 11/07/2023. TECHNIQUE: 2 views of the chest were obtained. FINDINGS: The lungs are clear. The cardiomediastinal silhouette is normal in size. There is no pleural effusion or pneumothorax. No acute osseous abnormality. XR/XR chest 2V IMPRESSION: No acute cardiopulmonary findings.
[2023-11-17 10:14] VITALS: BP 154/76; PULSE 97; RESP 18; TEMP 36.6; O2SAT 98; BMI 30.5
[2023-11-17 10:33] LABS: IDNOW Serial# 08D9AD1C; Strep A Nucleic Acid Negative (Negative)
[2023-11-17 10:38] LABS: COVID-19 Test Negative (Negative); IDNOW Serial# 152EDE1D
[2023-11-17 10:46] LABS: IDNOW Serial# 6674DD1D; Influenza A Negative (Negative); Influenza B2 Negative (Negative)
[2023-11-17] MEDS: Benzonatate 100 MG CAPSULE PO (12:25)
[2023-11-17] MEDS: Albuterol Sulfate 90 MCG 8 GM INHALER 8 PUFF INHALE (12:40)
[2023-11-17 12:42] VITALS: PULSE 97; RESP 18; O2SAT 99
--- NOTE | 2023-11-17 12:48 | ED.URI ---
HPI - URI/Sore Throat General Chief Complaint: Upper Respiratory Symptoms Stated Complaint: Ear pain, sore throat, rash Time Seen by Provider: 11/17/23 11:41 Source: patient, RN notes reviewed and old records reviewed Mode of arrival: ambulatory History of Present Illness HPI Narrative: 73-year-old female with a past medical history of osteoarthritis, GERD, HTN, proximal AFib, HLD, hypothyroid, asthma/COPD overlap syndrome, on chronic Prednisone 5 mg daily, presenting to the ED complaining of sore throat, productive cough, chest discomfort with cough, wheezing/SOB, myalgias, fatigue, subjective fever x 3 days. Has been using inhalers without relief. Denies difficulty/inability to swallow, travel, sick contacts. Related Data Home Medications Medication Instructions Recorded Confirmed escitalopram oxalate 10 mg tablet 10 mg PO DAILY 05/17/22 08/18/23 aripiprazole 5 mg tablet 5 mg PO DAILY 07/09/22 08/18/23 ipratropium 0.5 mg-albuterol 3 mg 3 ml inhalation QID PRN Shortness 07/25/22 08/18/23 (2.5 mg base)/3 mL nebulization Of Breath soln nebulizers 09/30/23 Previous Rx's Medication Instructions Recorded lidocaine 5 % topical patch 1 patch topical DAILY #30 ea 12/24/22 (Lidoderm) lift recliner #1 ea 01/08/23 umeclidinium 62.5 mcg/actuation 1 inh inhalation DAILY #30 ea 02/02/23 blister powder for inhalation (Incruse Ellipta) fluocinolone acetonide oil 0.01 % 5 drp otic (ear) left BID 7 days 03/21/23 ear drops (DermOtic Oil) #20 mL polyethylene glycol 3350 17 17 g PO DAILY PRN constipation 30 03/21/23 gram/dose oral powder (Miralax) days #119 grams apixaban 5 mg tablet (Eliquis) 5 mg PO BID #60 tabs 06/27/23 prednisone 5 mg tablet 5 mg PO DAILY #30 tabs 06/27/23 levothyroxine 25 mcg tablet 25 mcg PO DAILY 90 days #90 tabs 07/13/23 tamsulosin 0.4 mg capsule (Flomax) 0.4 mg PO DAILY 14 days #14 caps 07/15/23 dronedarone 400 mg tablet (Multaq) 400 mg PO BID 90 days #180 tabs 07/19/23 loratadine 10 mg tablet 10 mg PO DAILY 90 days #90 tabs 07/20/23 albuterol sulfate 90 mcg/actuation 2 puff PO Q6H PRN for wheezing #18 07/25/23 aerosol inhaler (Ventolin HFA) ea losartan 25 mg tablet 25 mg PO DAILY 90 days #90 tabs 07/26/23 triamcinolone acetonide 0.5 % 1 appl topical BID #30 grams 07/26/23 topical cream diltiazem HCl 120 mg 120 mg PO DAILY 90 days #90 caps 07/27/23 capsule,extended release 24 hr (Cardizem CD) lidocaine 5 %-phenylephrine 0.25 1 appl topical DAILY 14 days #28 08/01/23 %-glycern 14.4 %-petrolatm 15 % grams cream (Preparation H Rapid Relief-Lidocaine) hydrocortisone 2.5 % topical cream 1 appl AL BID-QID PRN hemorrhoids 08/04/23 with perineal applicator 30 days #30 grams hydrocortisone 2.5 % topical cream 1 appl AL BID-QID PRN hemorrhoids 08/24/23 with perineal applicator 30 days #30 grams (Proctosol HC) adona pillow seat and cushion #1 ea 09/07/23 quilted wipes #200 ea 09/07/23 albuterol sulfate 2.5 mg/3 mL 2.5 mg (3 mL) inhalation Q6H PRN 09/08/23 (0.083 %) solution for nebulization shortness of breath or wheezing 30 days #180 mL mepolizumab 100 mg/mL subcutaneous 100 mg subcut Q4W #1 mL 09/12/23 syringe (Nucala) amoxicillin 875 mg-potassium 1 tab PO BID 5 days #10 tabs 09/26/23 clavulanate 125 mg tablet dextromethorphan-guaifenesin 5 10 ml PO Q4H PRN cough 14 days 09/30/23 mg-100 mg/5 mL oral liquid #500 mL (Robitussin Cough-Chest Congestion DM) doxycycline hyclate 100 mg capsule 100 mg PO BID 10 days #20 caps 09/30/23 prednisone 10 mg tablet See Rx Instructions PO DAILY 10 12/29/23 days #15 tabs omeprazole 20 mg capsule,delayed 20 mg PO DAILY PRN heartburn 30 10/19/23 release days #30 caps sennosides 8.6 mg tablet (senna) 8.6 mg PO BEDTIME PRN constipation 10/19/23 30 days #30 tabs rosuvastatin 10 mg tablet (Crestor) 10 mg PO DAILY 90 days #90 tabs 10/20/23 famotidine 20 mg tablet 20 mg PO BEDTIME 90 days #90 tabs 10/26/23 prednisone 20 mg tablet 40 mg (2 x 20 mg) PO DAILY 4 days 11/17/23 #8 tabs Allergies Allergy/AdvReac Type Severity Reaction Status Date / Time sulfamethoxazole Allergy Severe Rash Verified 11/17/23 10:14 [From Bactrim] trimethoprim [From Bactrim] Allergy Severe Rash Verified 11/17/23 10:14 levofloxacin [From LEVAQUIN] Allergy Intermediate RASH SOB, Verified 11/17/23 10:14 DIZZYNESS tramadol AdvReac Severe abdominal Verified 11/17/23 10:14 pain, vomiting acetaminophen AdvReac Intermediate vomitting Verified 11/17/23 10:14 [Tylenol-Codeine #3] atorvastatin [Lipitor] AdvReac Intermediate nausea Verified 11/17/23 10:14 codeine [CODEINE] AdvReac Intermediate NAUSEA & Verified 11/17/23 10:14 VOMITING morphine [MORPHINE] AdvReac Intermediate NAUSEA & Verified 11/17/23 10:14 VOMITING pravastatin AdvReac Intermediate myalgia Verified 11/17/23 10:14 rosuvastatin AdvReac Mild myalgia Verified 11/17/23 10:14 Review of Systems Review of Systems: Constitutional: +Fever, No Chills, +fatigue, +malaise ENT/Mouth: No Ear Pain, No Nasal Congestion, No Sinus Pain, No Hoarseness, + sore throat, + Rhinorrhea, No Swallowing Difficulty Cardiovascular: + Chest Pain w/cough, + SOB Respiratory: + Cough, + Sputum, + Wheezing Gastrointestinal: No Nausea, No Vomiting, No Diarrhea, No Constipation, No Abdominal pain Genitourinary: No Dysuria, No Urinary Frequency, No Hematuria, No Flank Pain Musculoskeletal: No joint pain, + Myalgias, No Joint Swelling Skin: No Skin Lesions, No rash Neuro: No Weakness Yes all other systems are reviewed and are negative Constitutional: Constitutional: Reports as per [facility] Past Medical History Attestation statement: The following information was validated with the patient. Source: old records reviewed Medical History Osteoarthritis of knees, bilateral Mild recurrent major depression Polyarthralgia Osteopenia (~2007) Tubular adenoma of colon (~2009) Breast pain, left Postmenopausal Asthma-COPD overlap syndrome GERD (gastroesophageal reflux disease) HTN (hypertension) Paroxysmal atrial fibrillation (~01/2021) Dyslipidemia Hypothyroidism Pneumonia Eosinophilia Steroid dependent Chronic allergic rhinitis Asthma Surgical History History of right breast biopsy (~1998) History of colonoscopy History of D&C (~2002) History of tubal ligation History of shoulder surgery (~2006) History of nasal polypectomy (~2007) History of knee surgery Family History Family History Father Medical history unknown Mother Alzheimer disease Daughter Lupus Other Arthritis Social History Social History Household Members: None Housing: House Are you a primary director critical care to a significant other at home: No Do you presently have visiting nurse or other home services: Yes Alcohol intake: never Patient Tobacco Use Status: Former Tobacco user Tobacco use type: Cigarette Smoked in Last 30 Days: No e-Cigarette/Vaping Use: Never Used Second Hand Smoke Exposure: No Use of substances other than those prescribed or required for medical reasons: No Advance Directives: No Advance Directives Information Provided: Yes Advance Directives Date on File: 11/10/20 service: No Current occupational status: disabled Cognitive needs: Yes (cane) Hearing needs: No Vision needs: Yes (glasses) Physical Exam Vital Signs: Vital Signs: Last Vital Signs Temp 98 F 11/17/23 10:14 Pulse 97 11/17/23 12:42 Resp 18 11/17/23 12:42 BP 154/76 H 11/17/23 10:14 Pulse Ox 98 11/17/23 10:14 O2 Del Method Room Air 11/17/23 10:14 BMI result Body Mass Index 30.5 Const: General: cooperative, healthy appearing and no acute distress Orientation/consciousness: patient oriented x3 Limitations: no limitations HEENT: Head: Yes normal to inspection and Yes atraumatic Ears: hearing grossly normal bilaterally, external ears normal, TM's normal bilaterally and mastoids normal General nose exam: Normal external nose present Face and sinus: Yes normal facial exam Mouth: no drooling Throat: Yes uvula midline, No peritonsillar mass, Yes posterior oropharynx abnormal (Erythematous), No uvula laterally displaced and No uvular edema Eyes: General: appearance normal, both eyes and all related structures EOM: EOMs intact bilaterally Neck: Neck: Yes normal visual inspection and Yes no meningeal signs Resp: Effort & Inspection: normal respiratory effort and no respiratory distress Auscultation: wheezes expiratory wheezes and throughout Cardio: Rate: regular rate Heart sounds: S1 normal heart sound present and S2 normal heart sound present GI: Inspection: Yes normal to inspection Palpation (GI): Soft to palpation, nontender, no guarding and not rigid Skin: Rashes: no rashes Wounds: no wounds Neuro: General: patient oriented x3, tone normal and no meningeal signs Cranial nerves: Yes CN's II-XII intact bilaterally Gait exam (Neuro): Normal gait present Extrem: General: Yes normal to inspection Course Course Course Narrative: -COVID/flu and rapid strep negative -1311--on re-evaluation after 8 puffs of albuterol inhaler patient's lungs CTA. Patient also reports pruritic rash/erythema to neck x3-4 days. Denies new exposures, SOB/CP, throat closing sensation. Will give topical hydrocortisone. Small amount of erythema noted. Uvula midline, talking in complete sentences. No palm/sole involvement. No mucous membrane involvement. No sloughing. XR chest 2V IMPRESSION: No acute cardiopulmonary findings. Results discussed with patient including worrisome signs and symptoms and strict return precautions, and when to return to the emergency department. They verbalized understanding and feel safe for discharge at this time. Medications Administered Discontinued Medications Generic Name Dose Route Start Last Admin Trade Name Freq PRN Reason Stop Dose Admin Albuterol Sulfate 8 puff 11/17/23 12:34 11/17/23 12:40 Albuterol Sulfate 90 Mcg 8 Gm Inhaler INHALE 11/17/23 12:35 8 puff ONCE ONE Administration Benzonatate 100 mg 11/17/23 12:14 11/17/23 12:25 Benzonatate 100 Mg Capsule PO 11/17/23 12:15 100 mg ONCE ONE Administration Hydrocortisone 1 appl 11/17/23 13:10 11/17/23 13:48 Hydrocortisone 1 % Ointment 28.35 Gm Tube TOPICAL 11/17/23 13:11 1 appl ONCE ONE Administration Protocol Prednisone 40 mg 11/17/23 13:10 11/17/23 13:48 Prednisone 20 Mg Tablet PO 11/17/23 13:11 40 mg ONCE ONE Administration Medical Decision Making Medical Decision Making MDM Narrative: 73-year-old female with a past medical history of osteoarthritis, GERD, HTN, proximal AFib, HLD, hypothyroid, asthma/COPD overlap syndrome, on chronic Prednisone 5 mg daily, presenting to the ED complaining of sore throat, productive cough, chest discomfort with cough, wheezing/SOB, myalgias, fatigue, subjective fever x 3 days. On exam vital signs stable, NAD, nontoxic appearing, physical exam as noted above with posterior oropharyngeal erythema. No exudates. Uvula midline, talking complete sentences. Diffuse expiratory wheeze appreciated. Concern for viral illness vs strep pharyngitis vs pneumonia vs bronchitis vs asthma/COPD exacerbation. Low suspicion for ACS/PE, DVT, or sepsis Plan: Viral testing, rapid strep, CXR, ED Gerardo protocol, re-evaluate Please refer to course for remaining clinical decision making, interpretation of labs/imaging results, and discussions with consultants and/or family members. Differential Diagnosis Differential Diagnoses: The differential diagnosis associated with the presentation includes As above Lab Data [facility] Lab Attestation statement: I reviewed the patient's lab results. Labs: Lab Results 11/17/23 Range/Units 10:20 COVID-19 ([facility]) Negative (Negative) COVID-19 Clin Com See Note Influenza Type A ([facility]) Negative (Negative) Influenza Type B ([facility]) Negative (Negative) Influenza A & B Note See Note S. pyogenes GrpA [facility]AS Negative (Negative) Independent Interpretation I performed an independent interpretation of an: Plain X-Ray Radiology Impression Discussion of test interpretation with radiology: I have reviewed the radiologist's reading. External Record Review External record reviewed: Inpatient record, Office record, Outpatient record, Prior outpatient labs, Prior outpatient radiology, Primary care record and Outside ED record Tests considered The following testing was considered but not selected: As above Prescription Management I considered prescription management with: Pain Medication and Antibiotic Chronic Conditions Patient?s care impacted by: Other (Asthma/COPD) Discharge Plan Discharge Clinical Impression: Upper respiratory infection Patient Disposition: Home, Self-Care Instructions: Upper Respiratory Infection (DC) Additional Instructions: Please continue to use your inhalers and home medications. In addition start taking prednisone 40 mg daily for the next 4 days Please call your hotel front desk clerk for close follow-up If her symptoms persist or worsen/become unbearable you have constant worsening chest pain/shortness of breath or fever return to the ED Please continue to use topical hydrocortisone which was supplied to in the emergency department to rash only, avoid application to face, hands, and genital region as potentially can discolored your skin Prescriptions: New prednisone 20 mg tablet 40 mg PO DAILY 4 Days Qty: 8 0RF No Action (DME) lift recliner See Rx Instructions .Route .MEDSUPPLY Qty: 1 0RF Rx Instructions: As directed Incruse Ellipta 62.5 mcg/actuation blister with device 1 inh inhalation DAILY Qty: 30 11RF prednisone 5 mg tablet 5 mg PO DAILY Qty: 30 11RF Hold Instructions: resume after completion of prednisone taper Eliquis 5 mg tablet 5 mg PO BID Qty: 60 5RF levothyroxine 25 mcg tablet 25 mcg PO DAILY 90 Days Qty: 90 1RF Multaq 400 mg tablet 400 mg PO BID 90 Days Qty: 180 1RF loratadine 10 mg tablet 10 mg PO DAILY 90 Days Qty: 90 3RF albuterol sulfate [Ventolin HFA] 90 mcg/actuation HFA aerosol inhaler 2 puff PO Q6H PRN (Reason: for wheezing) Qty: 18 12RF losartan 25 mg tablet 25 mg PO DAILY 90 Days Qty: 90 1RF diltiazem HCl [Cardizem CD] 120 mg capsule,extended release 24hr 120 mg PO DAILY 90 Days Qty: 90 3RF Preparation H Rapid Rlf-Lidocn 5-0.25-14.4-15 % cream 1 appl topical DAILY 14 Days Qty: 28 0RF hydrocortisone [Proctosol HC] 2.5 % cream with perineal applicator 1 appl AL BID-QID PRN (Reason: hemorrhoids) 30 Days Qty: 30 0RF (DME) adona pillow seat and cushion See Rx Instructions .Route .MEDSUPPLY Qty: 1 0RF Rx Instructions: As directed (DME) quilted wipes See Rx Instructions .Route .MEDSUPPLY Qty: 200 12RF Rx Instructions: As directed albuterol sulfate 2.5 mg /3 mL (0.083 %) solution for nebulization 2.5 mg inhalation Q6H PRN (Reason: shortness of breath or wheezing) 30 Days Qty: 180 11RF Nucala 100 mg/mL syringe 100 mg subcut Q4W Qty: 1 11RF sennosides [senna] 8.6 mg tablet 8.6 mg PO BEDTIME PRN (Reason: constipation) 30 Days Qty: 30 0RF omeprazole 20 mg capsule,delayed release(DR/EC) 20 mg PO DAILY PRN (Reason: heartburn) 30 Days Qty: 30 0RF rosuvastatin [Crestor] 10 mg tablet 10 mg PO DAILY 90 Days Qty: 90 1RF famotidine 20 mg tablet 20 mg PO BEDTIME 90 Days Qty: 90 1RF ipratropium-albuterol 0.5 mg-3 mg(2.5 mg base)/3 mL solution for nebulization 3 ml inhalation QID PRN (Reason: Shortness Of Breath) tamsulosin [Flomax] 0.4 mg capsule 0.4 mg PO DAILY 14 Days Qty: 14 0RF amoxicillin-pot clavulanate 875-125 mg tablet 1 tab PO BID 5 Days Qty: 10 0RF lidocaine [Lidoderm] 5 % adhesive patch,medicated 1 patch topical DAILY Qty: 30 0RF Rx Instructions: leave on most painful area for up to 12 hrs hydrocortisone 2.5 % cream with perineal applicator 1 appl AL BID-QID PRN (Reason: hemorrhoids) 30 Days Qty: 30 1RF polyethylene glycol 3350 [Miralax] 17 gram/dose powder 17 g PO DAILY PRN (Reason: constipation) 30 Days Qty: 119 1RF fluocinolone acetonide oil [DermOtic Oil] 0.01 % drops 5 drp otic (ear) left BID 7 Days Qty: 20 0RF triamcinolone acetonide 0.5 % cream 1 appl topical BID Qty: 30 0RF aripiprazole 5 mg tablet 5 mg PO DAILY escitalopram oxalate 10 mg tablet 10 mg PO DAILY (DME) nebulizers Misc See Rx Instructions .ROUTE Rx Instructions: As directed doxycycline hyclate 100 mg capsule 100 mg PO BID 10 Days Qty: 20 0RF prednisone 10 mg tablet See Rx Instructions PO DAILY 10 Days Qty: 15 0RF Rx Instructions: PO daily; Take 2 tablets by mouth x 5 days, then 1 tab daily x 5 days. Robitussin Cough-Chest Tavon DM 5-100 mg/5 mL liquid 10 ml PO Q4H PRN (Reason: cough) 14 Days Qty: 500 0RF Referrals: Angelique Li MD [Primary Care Provider] - 3 days
[2023-11-17] MEDS: predniSONE 20 MG TABLET 40 MG PO (13:48)
[2023-11-17] MEDS: Hydrocortisone 1 % Ointment 28.35 GM TUBE 1 APPL TOPICAL (13:48)
== END 2023-11-17 14:44 | disposition home or self-care (01) ==
PROVIDERS: Emergency Provider Emergency Medicine; PCP Internal Medicine
DX: J06.9 Acute upper respiratory infection, unspecified (principal); J02.9 Acute pharyngitis, unspecified; R05.9 Cough, unspecified; R07.89 Other chest pain; R06.02 Shortness of breath; Z11.52 Encounter for screening for COVID-19; M79.10 Myalgia, unspecified site; R53.83 Other fatigue; R50.9 Fever, unspecified; I10 Essential (primary) hypertension; J44.89 Other specified chronic obstructive pulmonary disease; J45.998 Other asthma; Z79.899 Other long term (current) drug therapy; Z87.891 Personal history of nicotine dependence
CPT/HCPCS: 71046; 87502; 87635; 87651; 94640; 99284

== ENCOUNTER 2023-11-28 09:57 | Outpatient (REF) | payer OTHER, SELFPAY | END 2023-11-28 09:58 | disposition home or self-care (01) | LOC: HO.MDS 09:57 | PROVIDERS: Visit Provider Hospitalist | DX: J45.50 Severe persistent asthma, uncomplicated (principal) | CPT/HCPCS: 96372 ==

== ENCOUNTER 2023-12-06 08:56 | Outpatient (REF) | payer OTHER, SELFPAY ==
--- NOTE | ~2023-12-06 | MM_ITS ---
EXAMINATION: MM SCREENING DIGITAL BREAST TOMOSYNTHESIS, BILATERAL CLINICAL INFORMATION: Screening. Asymptomatic. COMPARISON: Mammography: 11/29/2022, 11/26/2021, 07/17/2018, and dating back to 11/29/2011. TECHNIQUE: Digital breast tomosynthesis is performed in both the craniocaudal and mediolateral oblique views along with computer-aided detection (CAD). Synthesized 2D images are generated from the tomosynthesis. FINDINGS: The breasts are heterogeneously dense, which may obscure small masses (ACR BI-RADS breast composition Category c). Breast parenchyma is heterogeneously dense and nodular, similar to prior exams. There are several bilateral nodular asymmetries which are unchanged. There are vascular calcifications. There are a few scattered punctate calcifications in both breasts without suspicious grouping. There are no suspicious masses, suspicious grouped calcifications, or areas of architectural distortion in either breast. The parenchymal pattern is stable from prior exams. No skin or axillary abnormalities. MM/MM tomosynthesis screening BI IMPRESSION: No mammographic evidence of malignancy. Stable benign findings. ASSESSMENT: BI-RADS BI-RADS 2 - Benign Findings RECOMMENDATION: Routine annual mammography screening. 1 year F/U This examination should not preclude the clinical evaluation of a suspicious palpable abnormality. This patient could benefit from a screening adjunct such as bilateral ultrasound screening due to there her heterogeneously dense and somewhat nodular breast tissue. This patient's information was entered into a reminder system with a target due date for their next mammogram.
== END 2023-12-06 08:57 | disposition home or self-care (01) ==
LOC: HO.MAMMO 08:56
PROVIDERS: PCP Internal Medicine; Visit Provider Internal Medicine
DX: Z12.31 Encounter for screening mammogram for malignant neoplasm of breast (principal)
CPT/HCPCS: 77063; 77067

== ENCOUNTER → 2023-12-06 10:00 | Outpatient (BNV) | payer OTHER, SELFPAY | PROVIDERS: PCP Internal Medicine; Visit Provider Radiology Diagnostic Radiology | DX: Z12.31 Encounter for screening mammogram for malignant neoplasm of breast (principal) | CPT/HCPCS: 77063; 77067 ==

== ENCOUNTER 2023-12-15 09:26 | Outpatient (AMB) | payer OTHER, SELFPAY ==
--- NOTE | 2023-12-15 09:29 | A.OFFPC_ITS ---
Vital Signs 12/15/23 09:30 Height 5 ft 3 in Weight 188 lb BMI 33.3 BP 160/80 H Blood Pressure Location Lt brachial Position Sitting Pulse 83 Pulse Source Pulse Oximeter Pulse Oximetry (%) 98 Oxygen Delivery Method Room Air Intake Visit Reasons: pe Intake Note: Patient here for a physical exam Brush Operator Required: No Accompanied by: Self / Same As Patient Allergies sulfamethoxazole [From Bactrim] Allergy (Severe, Verified 12/15/23 09:43) Rash trimethoprim [From Bactrim] Allergy (Severe, Verified 12/15/23 09:43) Rash levofloxacin [From LEVAQUIN] Allergy (Intermediate, Verified 12/15/23 09:43) RASH SOB, DIZZYNESS tramadol Adverse Reaction (Severe, Verified 12/15/23 09:43) abdominal pain, vomiting acetaminophen [Tylenol-Codeine #3] Adverse Reaction (Intermediate, Verified 12/15/23 09:43) vomitting atorvastatin [Lipitor] Adverse Reaction (Intermediate, Verified 12/15/23 09:43) nausea codeine [CODEINE] Adverse Reaction (Intermediate, Verified 12/15/23 09:43) NAUSEA & VOMITING morphine [MORPHINE] Adverse Reaction (Intermediate, Verified 12/15/23 09:43) NAUSEA & VOMITING pravastatin Adverse Reaction (Intermediate, Verified 12/15/23 09:43) myalgia rosuvastatin Adverse Reaction (Mild, Verified 12/15/23 09:43) myalgia Medication List - Last Reconciled 12/15/23 by Angelique Valentine MD [[place]ona pillow seat and cushion As directed] albuterol sulfate 90 mcg/actuation (Ventolin HFA) 2 puffs PO Q6H PRN albuterol sulfate 2.5 mg (3 mL) inhalation Q6H PRN 30 days apixaban (Eliquis) 5 mg PO BID aripiprazole 5 mg PO DAILY diltiazem HCl (Cardizem CD) 120 mg PO DAILY 90 days dronedarone (Multaq) 400 mg PO BID 90 days escitalopram oxalate 10 mg PO DAILY famotidine 20 mg PO BEDTIME 90 days fluocinolone acetonide oil 0.01% (DermOtic Oil) 5 drps otic (ear) left BID 7 days hydrocortisone 2.5% (Proctosol HC) 1 appl RI BID-QID PRN 30 days ipratropium-albuterol 0.5 mg-3 mg(2.5 mg base)/3 mL 3 mL inhalation QID PRN levothyroxine 25 mcg PO DAILY 90 days [lift recliner As directed] loratadine 10 mg PO DAILY 90 days losartan 25 mg PO DAILY 90 days mepolizumab (Nucala) 100 mg subcut Q4W nebulizers As directed omeprazole 20 mg PO DAILY PRN 30 days polyethylene glycol 3350 (Miralax) 17 grams PO DAILY PRN 30 days prednisone 5 mg PO DAILY [quilted wipes As directed] rosuvastatin (Crestor) 10 mg PO DAILY 90 days sennosides (senna) 8.6 mg PO BEDTIME PRN 30 days tamsulosin (Flomax) 0.4 mg PO DAILY 14 days triamcinolone acetonide 0.5% 1 appl topical BID umeclidinium 62.5 mcg/actuation (Incruse Ellipta) 1 inh inhalation DAILY underpads (Bed Underpads) As directed Tobacco use date assessed: 12/15/23 Fall risk assessment: No Falls in past year Last assessed Fall Risk: 12/15/23 Dental Screening Dental Screen Date: 12/15/23 Did you have a dental visit in the last 12 months?: No Did you have a dental problem in the last 6 months where you did not have access to dental care?: No Was dental information given to patient?: Patient has dentist HPI HPI Comments History of Present Illness Details This is a 73-year-old female with paroxysmal atrial fibrillation, mild recurrent major depression and asthma-COPD overlap syndrome that comes for her physical exam. She complains of epigastric pain and upper GI series will be order. Mammogram done December 2023 still pending. Last colonoscopy was 2009 showing tubular adenoma and she was required to have another colonoscopy in 2015 that did not happen because she kept postponing it. Atrial fibrillation stable with medications and this is follow by cardiology. Denies any active bleeding. Depression also stable and she follows with psychiatry. Asthma-COPD overlap syndrome has been better control and she follows with pulmonology. Compliant with medications. Blood pressure elevated today and will be recheck in 3 weeks by nurse navigator. She did took her losartan 25 mg today. She has chronic kidney disease stage III with stable GFR. FORMERLY [facility], [facility] Medical History Chronic deep vein thrombosis (DVT) Right femoral vein DVT Osteoarthritis of knees, bilateral Mild recurrent major depression Polyarthralgia Osteopenia (~2007) Tubular adenoma of colon (~2009) Breast pain, left Postmenopausal Asthma-COPD overlap syndrome GERD (gastroesophageal reflux disease) HTN (hypertension) Paroxysmal atrial fibrillation (~01/2021) Dyslipidemia Hypothyroidism Pneumonia Eosinophilia Steroid dependent Chronic allergic rhinitis Asthma Surgical History History of right breast biopsy (~1998) History of colonoscopy History of D&C (~2002) History of tubal ligation History of shoulder surgery (~2006) History of nasal polypectomy (~2007) History of knee surgery Family History Father Medical history unknown Mother Alzheimer disease Daughter Lupus Other Arthritis Social History Household Members: None Housing: House Are you a primary sub acute care nurse to a significant other at home: No Do you presently have visiting nurse or other home services: Yes Alcohol intake: never Patient Tobacco Use Status: Former Tobacco user Tobacco use type: Cigarette e-Cigarette/Vaping Use: Never Used Second Hand Smoke Exposure: No Advance Directives Date on File: 11/10/20 service: No Current occupational status: disabled Cognitive needs: Yes (cane) Hearing needs: No Vision needs: Yes (glasses) Questionnaire PHQ-9 Over the last 2 weeks, how often have you been bothered by any of the following problems? 1. Little interest or pleasure in doing things: several days 2. Feeling down, depressed, or hopeless: several days 3. Trouble falling or staying asleep, or sleeping too much: not at all 4. Feeling tired or having little energy: several days 5. Poor appetite or overeating: more than half the days 6. Feeling bad about yourself - or that you are a failure or have let yourself or your family down: not at all 7. Trouble concentrating on things, such as reading the newspaper or watching television: not at all 8. Moving or speaking so slowly that other people could have noticed. Or the opposite - being so fidgety or restless that you have been moving around a lot more than usual: several days 9. Thoughts that you would be better off or of hurting yourself in some way: not at all Total score: 6 Depression Screening Interpretation: Positive Depression Screening Follow-up: Existing condition Depression Screening Done: Yes 89211 - PHQ-9 Billing: Yes Source: Developed by Drs. Mk Zapata, Roseline Pantoja, Nura Bailon and colleagues, with an educational camila from [email or web address]. Thrive Questionnaire Date Thrive assessed: 12/15/23 I am a: Patient What is your living situation today?: I have a steady place to live Within the past 12 months, did the food you bought not last and you didn't have the money to get more?: Never true Within the past 12 months, did you worry whether your food would run out before you got money to buy more?: Never true Do you have trouble paying for medicines?: No Do you have trouble getting transportation to medical appointments?: No Do you have trouble paying your heating and electricity bill?: No Do you have trouble taking care of your child, family member or friend?: No Do you have trouble with day-to-day activities such as bathing, preparing meals, shopping, managing finances, etc.?: No Are you currently unemployed and looking for a job?: No Are you interested in more education?: No Please select the resources that you would like help with: None Currently or been in a relationship where the following occur: no concerns reported THRIVE Score: 0 AUDIT C Alcohol Use Questionnaire (AUDIT-C) 1. How often do you have a drink containing alcohol?: Never Total Score: 0 FABIOLA-7 AMB Questionnaire FABIOLA-7 Date FABIOLA - 7 assessed: 12/15/23 Feeling nervous, anxious, or on edge: 1 = Several days Not being able to stop or control worryin = Not at all Worrying too much about different things: 1 = Several days Trouble relaxin = Not at all Being so restless that it is hard to sit still: 0 = Not at all Becoming easily annoyed or irritable: 0 = Not at all Feeling afraid as if something awful might happen: 0 = Not at all Total FABIOLA-7 score (0-4 normal; 5-9 mild; 10-14 moderate; 15-21 severe): 2 Source: Developed by Drs. Mk Zapata, Roseline Pantoja, Nura Bailon and colleagues, with an educational camila from [email or web address]. FABIOLA-7 Assessment Billing FABIOLA-7 Assessment Tool: FABIOLA-7 Assessment 53330 Review of Systems Const All systems reviewed & are unremarkable except as noted in HPI and below Eyes Reports no additional complaints, Denies change in vision and Denies other visual disturbances Card Denies chest pain at rest, Denies chest pain with activity, Denies edema, Denies irregular heart rhythm, Denies claudication, Denies dyspnea, Denies dyspnea on exertion, Denies orthopnea, Denies paroxysmal nocturnal dyspnea and Denies slow heart rate Resp Denies cough, Denies dyspnea and Denies dyspnea on exertion GI Denies abdominal pain, Denies change in bowel habits, Denies excessive flatus, Denies nausea and Denies vomiting Denies urinary incontinence, Denies urinary hesitancy and Denies urinary urgency Musc Denies abnormal gait, Denies atrophy, Denies deformity and Denies limited range of motion Skin/Breast Denies bleeding lesions, Denies changing lesions and Denies rash Neuro Denies abnormal gait, Denies behavioral changes, Denies confusion and Denies lack of coordination Psych Denies behavioral changes and Denies confusion Physical exam (Primary Care) Vital Signs: Last Vital Signs Pulse 83 12/15/23 09:30 BP 160/80 H 12/15/23 09:30 Pulse Ox 98 12/15/23 09:30 Oxygen Delivery Method Room Air 12/15/23 09:30 BMI result Body Mass Index 33.3 Tobacco/Smoking Status: Tobacco use Status Tobacco use date assessed 12/15/23 12/15/23 09:37 Patient Tobacco Use Status Former Tobacco user 12/15/23 09:37 Tobacco use type Cigarette 12/15/23 09:37 e-Cigarette/Vaping Use Never Used 12/15/23 09:37 PHQ-9: PHQ-9 Score PHQ-9: Total score 6 12/15/23 09:37 Depression Screening Interpretation: Positive Depression Screening Follow-up: Existing condition Thrive Assessment: Date of Thrive Assessment Date Thrive assessed 12/15/23 12/15/23 09:37 Currently or been in a relationship where the following occur: no concerns reported Const General: No confusion Orientation/consciousness: patient oriented x3 and No confusion HENMT Head: Yes normal to inspection, Yes normocephalic and Yes atraumatic Ears: external ears normal Eyes General: appearance normal, both eyes and all related structures Eyelids: Yes eyelids normal Conjunctivae: conjunctivae normal Neck Neck: Yes normal visual inspection and Yes supple Resp Effort & Inspection: normal respiratory effort Auscultation: clear to auscultation bilaterally Cardio Jugular venous distension: no JVD Rate: regular rate Rhythm: regular rhythm Heart sounds: S1 normal heart sound present and S2 normal heart sound present GI Inspection: Yes normal to inspection Palpation (GI): Soft to palpation and nontender Auscultation: normal bowel sounds Skin General skin exam: no rashes or lesions noted Neuro General: patient oriented x3, no focal motor deficits and No confusion Extrem General: Yes full ROM Psych Appearance: grossly normal Assessment and Plan Assessment & Plan (1) Physical exam: Code(s): Z00.00 - Encounter for general adult medical examination without abnormal findings Plan: Repeat in a year. (2) Mild recurrent major depression: Code(s): F33.0 - Major depressive disorder, recurrent, mild Plan: Continue Abilify. Follow-up with psychiatry. (3) Paroxysmal atrial fibrillation: Onset Date: ~01/2021 Code(s): I48.0 - Paroxysmal atrial fibrillation Plan: Continue Eliquis and Multaq. Follow-up with Cardiology. The goal is heart rate control. (4) Asthma-COPD overlap syndrome: Code(s): J44.9 - Chronic obstructive pulmonary disease, unspecified Plan: Continue Nucala and Incruse. Follow-up with pulmonology. Use rescue inhaler as needed. (5) CKD (chronic kidney disease) stage 3, GFR 30-59 ml/min: Code(s): N18.30 - Chronic kidney disease, stage 3 unspecified Plan: Avoid NSAIDs. Keep blood pressure less than 130/80. Orders: Orders Thyroid Stimulating Hormone Today E03.9 - Hypothyroidism, unspecified [place] upper GI series Today R10.13 - Epigastric pain Lipid Panel Today E78.5 - Hyperlipidemia, unspecified Complete Blood Count Auto Diff Today I48.0 - Paroxysmal atrial fibrillation Comprehensive [place]. Panel Fast Today N18.30 - Chronic kidney disease, stage 3 unspecified Coding Level of Care Code Est Pt Prev Care >65y(30053) Diagnoses Physical exam Z00.00 Mild recurrent major depression F33.0 Paroxysmal atrial fibrillation I48.0 Asthma-COPD overlap syndrome J44.9 CKD (chronic kidney disease) stage 3, GFR 30-59 ml/min N18.30 Additional Codes FABIOLA-7 Assessment Billing - FABIOLA-7 Assessment Tool: FABIOLA-7 Assessment [id number] ([id number]) Time Spent (min) 38
[2023-12-15 09:30] VITALS: BP 160/80; PULSE 83; O2SAT 98; BMI 33.3
== END 2023-12-15 09:59 | disposition home or self-care (01) ==
PROVIDERS: PCP Internal Medicine; Visit Provider Internal Medicine
DX: Z00.00 Encounter for general adult medical examination without abnormal findings (principal); F33.0 Major depressive disorder, recurrent, mild; I48.0 Paroxysmal atrial fibrillation; J44.9 Chronic obstructive pulmonary disease, unspecified; N18.30 Chronic kidney disease, stage 3 unspecified
CPT/HCPCS: 99397

== ENCOUNTER 2023-12-23 12:09 | Emergency (ER) | payer OTHER, SELFPAY ==
--- NOTE | ~2023-12-23 | CT_ITS ---
EXAMINATION: CT SOFT TISSUE NECK WITH CONTRAST CLINICAL INFORMATION: Posterior neck and shoulder swelling. Lump on back of neck. COMPARISON: None available. TECHNIQUE: Multidetector helical imaging was performed in the axial plane following the administration of 65 mL of Omnipaque 350 intravenous contrast. Multiple axial reformats and coronal/sagittal reconstructions were created the technologist workstation for review. This CT examination was performed using dose optimization techniques as appropriate, variously including the following: *Automated exposure control. *Adjustment of mA and/or kV according to patient size (this includes techniques or standardized protocols for targeted exams where dose is matched to indication/reason for exam; i.e. extremities or head). *Use of iterative reconstruction technique. DLP: 429 mGy-cm FINDINGS: No significant cutaneous thickening or subcutaneous inflammation. No discrete fluid collection within the deep tissues of the neck. The premaxillary, retromaxillary, pterygopalatine fossa, orbital apical, parapharyngeal, and prelaryngeal adipose tissue is maintained. There is a 2 cm hypoattenuating nodule along the posterior-inferior margin of the right thyroid lobe. Normal appearance of the parotid and submandibular thyroid glands. Scattered subcentimeter lymph nodes bilaterally, none of which are pathologically enlarged or abnormally enhancing. No demonstrated focal lesion or abnormal enhancement within the intrinsic tissues of the tongue or floor of mouth. Normal mucosal contours of the pharynx and larynx without abnormal enhancement. Normal appearance of the hyoid bone, thyroid cartilage, or cartilaginous trachea. The airways remains widely patent. No radiopaque foreign bodies. The atlantooccipital and atlantoaxial articulations remain well aligned. Straightening of the normal cervical lordosis. No evidence of acute fracture or subluxation of the cervical spine. Otherwise, there is normal anatomic alignment. The vertebral body heights are maintained. Advanced degenerative disc disease at C6-C7. Mild to moderate degenerative disc disease at all additional levels. No evidence of epidural collection. There is no prevertebral soft tissue swelling. Normal opacification of the cervical arterial and venous structures. The visualized portion of the skull base is without significant abnormalities. Mild mucosal thickening of the visualized paranasal sinuses. The mastoid air cells and middle ear cavities are clear. No demonstrated significant periapical odontogenic disease. CT Upper Chest: The visualized lung apices and upper mediastinum are within normal limits. CT/CT soft tissue neck w IV con IMPRESSION: 1. There is a 2 cm hypoattenuating nodule along the posterior-inferior margin of the right thyroid lobe. This may represent exophytic thyroid lesion versus a parathyroid adenoma. Recommend further characterization with thyroid ultrasound and potentially parathyroid function testing. 2. No additional focal lesion, collection, lymphadenopathy, or abnormal enhancement within the soft tissues of the neck.
[2023-12-23 12:45] VITALS: BP 178/85; PULSE 81; RESP 16; TEMP 36; O2SAT 99; BMI 30.5
--- NOTE | 2023-12-23 12:47 | ED.NECK ---
HPI - Neck Pain/Injury General Chief Complaint: Skin/Abscess/Foreign Body Stated Complaint: Neck Pain No Injury Time Seen by Provider: 12/23/23 20:58 History of Present Illness HPI Narrative: The patient is a 73-year-old woman who says that she has had increasing discomfort and a sense of swelling and development of a lump at the upper portion of her back where the upper back meets the lower neck. She says that this has been becoming a problem over the last 4 days. She says that it is painful and itchy. There has been no injury. No definite fever. Related Data Home Medications Medication Instructions Recorded Confirmed escitalopram oxalate 10 mg tablet 10 mg PO DAILY 05/17/22 12/15/23 aripiprazole 5 mg tablet 5 mg PO DAILY 07/09/22 12/15/23 ipratropium 0.5 mg-albuterol 3 mg 3 ml inhalation QID PRN Shortness 07/25/22 12/15/23 (2.5 mg base)/3 mL nebulization Of Breath soln nebulizers 09/30/23 12/15/23 Previous Rx's Medication Instructions Recorded lift recliner #1 ea 01/08/23 umeclidinium 62.5 mcg/actuation 1 inh inhalation DAILY #30 ea 02/02/23 blister powder for inhalation (Incruse Ellipta) polyethylene glycol 3350 17 17 g PO DAILY PRN constipation 30 03/21/23 gram/dose oral powder (Miralax) days #119 grams apixaban 5 mg tablet (Eliquis) 5 mg PO BID #60 tabs 06/27/23 prednisone 5 mg tablet 5 mg PO DAILY #30 tabs 06/27/23 levothyroxine 25 mcg tablet 25 mcg PO DAILY 90 days #90 tabs 07/13/23 tamsulosin 0.4 mg capsule (Flomax) 0.4 mg PO DAILY 14 days #14 caps 07/15/23 dronedarone 400 mg tablet (Multaq) 400 mg PO BID 90 days #180 tabs 07/19/23 loratadine 10 mg tablet 10 mg PO DAILY 90 days #90 tabs 07/20/23 albuterol sulfate 90 mcg/actuation 2 puff PO Q6H PRN for wheezing #18 07/25/23 aerosol inhaler (Ventolin HFA) ea losartan 25 mg tablet 25 mg PO DAILY 90 days #90 tabs 07/26/23 triamcinolone acetonide 0.5 % 1 appl topical BID #30 grams 07/26/23 topical cream diltiazem HCl 120 mg 120 mg PO DAILY 90 days #90 caps 07/27/23 capsule,extended release 24 hr (Cardizem CD) hydrocortisone 2.5 % topical cream 1 appl RI BID-QID PRN hemorrhoids 08/24/23 with perineal applicator 30 days #30 grams (Proctosol HC) adona pillow seat and cushion #1 ea 09/07/23 albuterol sulfate 2.5 mg/3 mL 2.5 mg (3 mL) inhalation Q6H PRN 09/08/23 (0.083 %) solution for nebulization shortness of breath or wheezing 30 days #180 mL mepolizumab 100 mg/mL subcutaneous 100 mg subcut Q4W #1 mL 09/12/23 syringe (Nucala) omeprazole 20 mg capsule,delayed 20 mg PO DAILY PRN heartburn 30 10/19/23 release days #30 caps sennosides 8.6 mg tablet (senna) 8.6 mg PO BEDTIME PRN constipation 10/19/23 30 days #30 tabs rosuvastatin 10 mg tablet (Crestor) 10 mg PO DAILY 90 days #90 tabs 10/20/23 famotidine 20 mg tablet 20 mg PO BEDTIME 90 days #90 tabs 10/26/23 fluocinolone acetonide oil 0.01 % 5 drp otic (ear) left BID 7 days 12/01/23 ear drops (DermOtic Oil) #20 mL quilted wipes #200 ea 12/16/23 underpads (Bed Underpads) #100 ea 12/16/23 cephalexin 500 mg capsule 500 mg PO QID 8 days #32 caps 12/23/23 hydrocortisone 1 % topical cream 1 appl topical TID PRN itching 12/23/23 (Anti-Itch (hydrocortisone)) #28.4 grams Allergies Allergy/AdvReac Type Severity Reaction Status Date / Time sulfamethoxazole Allergy Severe Rash Verified 12/15/23 09:43 [From Bactrim] trimethoprim [From Bactrim] Allergy Severe Rash Verified 12/15/23 09:43 levofloxacin [From LEVAQUIN] Allergy Intermediate RASH SOB, Verified 12/15/23 09:43 DIZZYNESS tramadol AdvReac Severe abdominal Verified 12/15/23 09:43 pain, vomiting acetaminophen AdvReac Intermediate vomitting Verified 12/15/23 09:43 [Tylenol-Codeine #3] atorvastatin [Lipitor] AdvReac Intermediate nausea Verified 12/15/23 09:43 codeine [CODEINE] AdvReac Intermediate NAUSEA & Verified 12/15/23 09:43 VOMITING morphine [MORPHINE] AdvReac Intermediate NAUSEA & Verified 12/15/23 09:43 VOMITING pravastatin AdvReac Intermediate myalgia Verified 12/15/23 09:43 rosuvastatin AdvReac Mild myalgia Verified 12/15/23 09:43 Review of Systems Review of Systems: Yes all other systems are reviewed and are negative [facility] Past Medical History Medical History Chronic deep vein thrombosis (DVT) Right femoral vein DVT Osteoarthritis of knees, bilateral Mild recurrent major depression Polyarthralgia Osteopenia (~2007) Tubular adenoma of colon (~2009) Breast pain, left Postmenopausal Asthma-COPD overlap syndrome GERD (gastroesophageal reflux disease) HTN (hypertension) Paroxysmal atrial fibrillation (~01/2021) Dyslipidemia Hypothyroidism Pneumonia Eosinophilia Steroid dependent Chronic allergic rhinitis Asthma Surgical History History of right breast biopsy (~1998) History of colonoscopy History of D&C (~2002) History of tubal ligation History of shoulder surgery (~2006) History of nasal polypectomy (~2007) History of knee surgery Family History Family History Father Medical history unknown Mother Alzheimer disease Daughter Lupus Other Arthritis Social History Social History Household Members: None Housing: House Are you a primary patient care provider to a significant other at home: No Do you presently have visiting nurse or other home services: Yes Alcohol intake: never Patient Tobacco Use Status: Former Tobacco user Tobacco use type: Cigarette Smoked in Last 30 Days: No e-Cigarette/Vaping Use: Never Used Second Hand Smoke Exposure: No Use of substances other than those prescribed or required for medical reasons: No Advance Directives: No Advance Directives Information Provided: No Advance Directives Date on File: 11/10/20 service: No Current occupational status: disabled Cognitive needs: Yes (cane) Hearing needs: No Vision needs: Yes (glasses) Physical Exam Vital Signs: Vital Signs: Last Vital Signs Temp 98.5 F 12/23/23 23:02 Pulse 63 12/23/23 23:02 Resp 17 12/23/23 23:02 BP 163/52 H 12/23/23 23:02 Pulse Ox 98 12/23/23 23:02 O2 Del Method Room Air 12/23/23 23:02 BMI result Body Mass Index 30.5 Const: Other: The patient is awake and alert. She has a nontoxic appearance. HEENT: Other: Face is symmetrical. Mucous membranes moist. Eyes: Other: Pupils are round equal, conjunctivae are clear Neck: Other: No cervical adenopathy. She is moving her neck easily. Resp: Effort & Inspection: normal respiratory effort Auscultation: clear to auscultation bilaterally Cardio: Rate: regular rate Rhythm: regular rhythm Heart sounds: S1 normal heart sound present and S2 normal heart sound present Back/Spine/Pelvis: Other: There is a prominent soft tissue lump at the upper back at the base of the neck which is prominent and mildly tender. No fluctuance. No drainage. There is some mild patchy erythema in this area but confluent erythema. Skin: Other: Some mild erythema to an area of soft tissue prominence at the top of the thoracic spine. No fluctuance. No drainage. Mild tenderness. Neuro: Other: The patient is awake, alert, pleasant, nontoxic. Grossly neurologically intact Extrem: Other: No peripheral edema Course Course Course Narrative: This is a rapid medical exam: Additional HPI, ROS, PE not included below will be deferred to primary provider. Pain in posterior neck with swelling and warmth. Woke up with pain and itching. Denies paresthesias or difficutly Medications Administered Discontinued Medications Generic Name Dose Route Start Last Admin Trade Name Freq PRN Reason Stop Dose Admin Iohexol 60 ml 12/23/23 19:48 12/23/23 19:48 Iohexol 350 Mg/Ml 100 Ml Infus..Btl IV 12/23/23 19:49 60 ml ONCE ONE Administration Medical Decision Making Medical Decision Making MDM Narrative: The patient is a 73-year-old woman who presents with a complaint of 4 days of discomfort in the region of a ?dowager hump -type swelling at the upper back. She describes a lot of itchiness. No fever. On exam there is some mild diffuse erythema without confluent erythema. No fluctuance. A CT scan had been ordered at triage of the neck. The CT tends into the upper chest to encompass the area of concern. The CT shows no findings in the region of concern of the upper back. No abscess or other signs of significant infection or other process. There is an incidental finding of a thyroid nodule. I explained to the patient that she may have a mild cellulitis and will be started on cephalexin. She was very interested in some kind of cream for itchiness. She was prescribed hydrocortisone cream in addition to the cephalexin. She was also told about the incidental thyroid nodule. Lab Data 12/23/23 13:13 12/23/23 13:13 Labs: Lab Results 12/23/23 Range/Units 13:13 WBC 8.5 (4.8-10.8) X10*3/uL RBC 4.54 (4.20-5.50) X10*6/uL Hgb 11.6 L (12.0-16.0) g/dl Hct 38.7 (37.0-47.0) % MCV 85.2 (80.0-98.0) fL MCH 25.6 L (27.0-33.0) pg MCHC 30.0 L (31.0-35.0) g/dl RDW 15.7 (11.0-16.0) % Plt Count 398 (160-400) X10*3/uL MPV 8.7 L (9.4-12.3) fL Immature Gran % (Auto) 0.4 (0.0-0.4) % Neut % (Auto) 83.9 H (45-73) % Lymph % (Auto) 10.8 L (20-40) % [place] % (Auto) 4.2 (2-11) % Eos % (Auto) 0.1 (0-4) % Baso % (Auto) 0.6 (0-2) % Lymph # (Auto) 0.9 L (1.2-4.9) X10*3/uL [place] # (Auto) 0.4 (0.1-1.2) X10*3/uL Eos # (Auto) 0.0 (0.0-0.4) X10*3/uL Baso # (Auto) 0.1 (0.0-0.2) X10*3/uL Abs Immat Gran (auto) 0.03 (0.00-0.03) X10*3/uL Absolute Neuts (auto) 7.2 (2.0-8.3) x10*3/uL Absolute Nucleated RBC 0.000 (0.0-0.012) X10*3/uL Nucleated RBC % (auto) 0.0 (0.0-0.2) /100WBC Sodium 140 (135-145) mmol/L Potassium 5.0 (3.3-5.1) mmol/L Chloride 105 (96-108) mmol/L Carbon Dioxide 27 (22-29) mmol/L Anion Gap 13 (12-20) BUN 20 H (9-16) mg/dL Creatinine 1.39 (0.5-1.4) mg/dL Estim Creat Clear Calc 35.1 Estimated GFR 37 Random Glucose 109 (60-115) mg/dL Calcium 9.5 (8.4-10.2) mg/dL Total Bilirubin 0.3 (0.0-1.0) mg/dL AST 14 (5-31) U/L ALT 9 (0-31) U/L Alkaline Phosphatase 78 (39-117) U/L C-Reactive Protein 0.96 H (< or = 0.50) mg/dL Total Protein 7.7 (6.5-8.0) g/dL Albumin 4.3 (3.5-5.0) g/dL Discharge Plan Discharge Clinical Impression: Cellulitis of upper back excluding scapular region, Itching, Thyroid nodule Patient Disposition: Home, Self-Care Additional Instructions: Please take the antibiotic, cephalexin, 4 times a day as prescribed, approximately every 6 hours. You may use acetaminophen (Tylenol) as needed for pain. You may use the hydrocortisone cream up to 3 times a day as needed for itchiness. Please follow-up soon with your regular doctor to discuss these symptoms further. There was a finding in your thyroid gland. Have a 2 cm nodule on the right side of your thyroid. It is not clear if this is significant at all. This will need to be followed up with your regular doctor Return to the emergency room if significantly worse. Prescriptions: New cephalexin 500 mg capsule 500 mg PO QID 8 Days Qty: 32 0RF hydrocortisone [Anti-Itch (HC)] 1 % cream 1 appl topical TID PRN (Reason: itching) Qty: 28.4 0RF No Action (DME) lift recliner See Rx Instructions .Route .MEDSUPPLY Qty: 1 0RF Rx Instructions: As directed Incruse Ellipta 62.5 mcg/actuation blister with device 1 inh inhalation DAILY Qty: 30 11RF prednisone 5 mg tablet 5 mg PO DAILY Qty: 30 11RF Hold Instructions: resume after completion of prednisone taper Eliquis 5 mg tablet 5 mg PO BID Qty: 60 5RF levothyroxine 25 mcg tablet 25 mcg PO DAILY 90 Days Qty: 90 1RF Multaq 400 mg tablet 400 mg PO BID 90 Days Qty: 180 1RF loratadine 10 mg tablet 10 mg PO DAILY 90 Days Qty: 90 3RF albuterol sulfate [Ventolin HFA] 90 mcg/actuation HFA aerosol inhaler 2 puff PO Q6H PRN (Reason: for wheezing) Qty: 18 12RF losartan 25 mg tablet 25 mg PO DAILY 90 Days Qty: 90 1RF diltiazem HCl [Cardizem CD] 120 mg capsule,extended release 24hr 120 mg PO DAILY 90 Days Qty: 90 3RF hydrocortisone [Proctosol HC] 2.5 % cream with perineal applicator 1 appl RI BID-QID PRN (Reason: hemorrhoids) 30 Days Qty: 30 0RF (DME) adona pillow seat and cushion See Rx Instructions .Route .MEDSUPPLY Qty: 1 0RF Rx Instructions: As directed albuterol sulfate 2.5 mg /3 mL (0.083 %) solution for nebulization 2.5 mg inhalation Q6H PRN (Reason: shortness of breath or wheezing) 30 Days Qty: 180 11RF Nucala 100 mg/mL syringe 100 mg subcut Q4W Qty: 1 11RF sennosides [senna] 8.6 mg tablet 8.6 mg PO BEDTIME PRN (Reason: constipation) 30 Days Qty: 30 0RF omeprazole 20 mg capsule,delayed release(DR/EC) 20 mg PO DAILY PRN (Reason: heartburn) 30 Days Qty: 30 0RF rosuvastatin [Crestor] 10 mg tablet 10 mg PO DAILY 90 Days Qty: 90 1RF famotidine 20 mg tablet 20 mg PO BEDTIME 90 Days Qty: 90 1RF fluocinolone acetonide oil [DermOtic Oil] 0.01 % drops 5 drp otic (ear) left BID 7 Days Qty: 20 0RF (DME) underpads [Bed Underpads] Pad See Rx Instructions .Route Qty: 100 11RF Rx Instructions: As directed (DME) quilted wipes See Rx Instructions .Route .MEDSUPPLY Qty: 200 12RF Rx Instructions: As directed ipratropium-albuterol 0.5 mg-3 mg(2.5 mg base)/3 mL solution for nebulization 3 ml inhalation QID PRN (Reason: Shortness Of Breath) tamsulosin [Flomax] 0.4 mg capsule 0.4 mg PO DAILY 14 Days Qty: 14 0RF polyethylene glycol 3350 [Miralax] 17 gram/dose powder 17 g PO DAILY PRN (Reason: constipation) 30 Days Qty: 119 1RF triamcinolone acetonide 0.5 % cream 1 appl topical BID Qty: 30 0RF aripiprazole 5 mg tablet 5 mg PO DAILY escitalopram oxalate 10 mg tablet 10 mg PO DAILY (DME) nebulizers Misc See Rx Instructions .Route Rx Instructions: As directed Referrals: Angelique Li MD [Primary Care Provider] - (itchy area of upper back, possibly mild cellulitis) Interventions: ED Discharge Assessment Last Done: 12/23/23 23:02 Discharge Date/Time: 12/23/23 23:05
[2023-12-23 13:16] LABS: MANUAL DIFF FLAG NO
[2023-12-23 13:19] LABS: Basophils Absolute Auto 0.1 X10*3/uL (0.0-0.2); Basophils Percent Auto 0.6 % (0-2); Eosinophils Percent Auto 0.1 % (0-4); Hematocrit 38.7 % (37.0-47.0); Hemoglobin 11.6 g/dl (12.0-16.0); Imm Gran Abs Auto 0.03 X10*3/uL (0.00-0.03); Imm Gran Pct Auto 0.4 % (0.0-0.4); Lymphocytes Absolute Auto 0.9 X10*3/uL (1.2-4.9); Lymphocytes Percent Auto 10.8 % (20-40); Mean Corpuscular Hemoglobin 25.6 pg (27.0-33.0); Mean Corpuscular Volume 85.2 fL (80.0-98.0); Mean Platelet Volume 8.7 fL (9.4-12.3); Monocytes Absolute Auto 0.4 X10*3/uL (0.1-1.2); Monocytes Percent Auto 4.2 % (2-11); Neutrophils Absolute Auto 7.2 x10*3/uL (2.0-8.3); Neutrophils Percent Auto 83.9 % (45-73); Platelet Count 398 X10*3/uL (160-400); Red Blood Count 4.54 X10*6/uL (4.20-5.50); Red Cell Distribution Width 15.7 % (11.0-16.0); White Blood Count 8.5 X10*3/uL (4.8-10.8)
[2023-12-23 13:37] LABS: Alanine Aminotransferase 9 U/L (0-31); Albumin Level 4.3 g/dL (3.5-5.0); Alkaline Phosphatase 78 U/L (39-117); Anion Gap 13 (12-20); Aspartate Amino Transferase 14 U/L (5-31); Bilirubin Total 0.3 mg/dL (0.0-1.0); Blood Urea Nitrogen 20 mg/dL (9-16); Calcium 9.5 mg/dL (8.4-10.2); Carbon Dioxide 27 mmol/L (22-29); Chloride 105 mmol/L (96-108); Creatinine Clr Calc Pharmacy 35.1; Estimated Glomerular Filt Rate 37; Glucose Random 109 mg/dL (60-115); Sodium 140 mmol/L (135-145); Total Protein 7.7 g/dL (6.5-8.0)
[2023-12-23] MEDS: iohexoL 350 MG/ML 100 ML INFUS..BTL 60 ML IV (19:48)
[2023-12-23 21:16] VITALS: BP 157/63; PULSE 65; RESP 17; TEMP 36.3; O2SAT 97
[2023-12-23 22:06] LABS: C Reactive Protein 0.96 mg/dL (< or = 0.50)
[2023-12-23 22:46] VITALS: BP 163/52; PULSE 63; RESP 17; TEMP 36.9; O2SAT 98
[2023-12-23 23:02] VITALS: BP 163/52; PULSE 63; RESP 17; TEMP 36.9; O2SAT 98
== END 2023-12-23 23:05 | disposition home or self-care (01) ==
PROVIDERS: Nurse Practitioner Family; Emergency Provider Emergency Medicine; PCP Internal Medicine
DX: L03.312 Cellulitis of back [any part except buttock and flank] (principal); E04.1 Nontoxic single thyroid nodule; I10 Essential (primary) hypertension; Z86.718 Personal history of other venous thrombosis and embolism
CPT/HCPCS: 36415; 70491; 80053; 85025; 86140; 99284; Q9967

== ENCOUNTER 2024-01-10 10:55 | Outpatient (AMB) | payer OTHER, SELFPAY ==
--- NOTE | 2024-01-10 11:05 | HO.NEPHOV_ITS ---
HPI HPI Comments History of Present Illness Details 73-year-old woman with a history of asth ma and paroxysmal atrial fibrillation and chronic kidney disease with resistant hypertension. She is here for regular semiannual follow-up. She did not take her antihypertensive medications today. [facility] Medical History Chronic deep vein thrombosis (DVT) Right femoral vein DVT Osteoarthritis of knees, bilateral Mild recurrent major depression Polyarthralgia Osteopenia (~2007) Tubular adenoma of colon (~2009) Breast pain, left Postmenopausal Asthma-COPD overlap syndrome GERD (gastroesophageal reflux disease) HTN (hypertension) Paroxysmal atrial fibrillation (~01/2021) Dyslipidemia Hypothyroidism Pneumonia Eosinophilia Steroid dependent Chronic allergic rhinitis Asthma Surgical History History of right breast biopsy (~1998) History of colonoscopy History of D&C (~2002) History of tubal ligation History of shoulder surgery (~2006) History of nasal polypectomy (~2007) History of knee surgery Family History Father Medical history unknown Mother Alzheimer disease Daughter Lupus Other Arthritis Social History Household Members: None Housing: House Are you a primary medical care manager to a significant other at home: No Do you presently have visiting nurse or other home services: Yes Alcohol intake: never Patient Tobacco Use Status: Former Tobacco user Tobacco use type: Cigarette e-Cigarette/Vaping Use: Never Used Second Hand Smoke Exposure: No Advance Directives Date on File: 11/10/20 service: No Current occupational status: disabled Cognitive needs: Yes (cane) Hearing needs: No Vision needs: Yes (glasses) Vital Signs 01/10/24 11:13 Height 5 ft 3 in Weight 190 lb BMI 33.7 BP 170/80 H Blood Pressure Location Lt brachial Position Sitting Pulse 86 Pulse Source Pulse Oximeter Pulse Oximetry (%) 98 Oxygen Delivery Method Room Air Physical Exam Vital Signs: Last Vital Signs Pulse 86 01/10/24 11:13 BP 170/80 H 01/10/24 11:13 Pulse Ox 98 01/10/24 11:13 Oxygen Delivery Method Room Air 01/10/24 11:13 BMI result Body Mass Index 33.7 Const General: comfortable Nutritional Appearance: well nourished Orientation/consciousness: patient oriented x3 HEENT Head: No normal to inspection Mouth: moist mucous membranes Neck Neck: Yes supple and Yes no JVD Resp Auscultation: clear to auscultation bilaterally, no rales and rub present Cardio Jugular venous distension: no JVD Palpation: no palpable S3 and no palpable S4 Heart sounds: no rubs GI Palpation (GI): Soft to palpation and nontender Percussion: No Fluid wave present General: Yes no CVA tenderness Back/Spine/Pelvis Back: no CVA tenderness Skin General skin exam: no rashes or lesions noted Neuro General: patient oriented x3 Extrem General: Yes no pedal edema and No clubbing Assessment & Plan Assessment & Plan (1) CKD (chronic kidney disease) stage 3, GFR 30-59 ml/min: Code(s): N18.30 - Chronic kidney disease, stage 3 unspecified (2) HTN (hypertension): Code(s): I10 - Essential (primary) hypertension Plan Elderly woman with resistant hypertension and underlying CKD. Renal functions close to baseline EGFR is 33 mL/minute. Reorder serological workup. Further workup will be based on the outcome of these investigations. Hypertension blood pressure is suboptimal primarily because she did not take her medication today. I have encouraged her to keep taking the medications and stand low-sodium diet she will return to office in 1 week for another blood pressure check. Orders: Orders Neutrophil Cytoplasma Ab Today N18.30 - Chronic kidney disease, stage 3 unspecified Myeloperoxidase Antibody Today N18.30 - Chronic kidney disease, stage 3 u nspecified Proteinase 3 PR3 Antibodies Today N18.30 - Chronic kidney disease, stage 3 unspecified Complement C4 Today N18.30 - Chronic kidney disease, stage 3 unspecified Total Protein Urine Random Today N18.30 - Chronic kidney disease, stage 3 unspecified Creatinine Urine Today N05.9 - Unspecified nephritic syndrome with unspecified morphologic changes, N18.30 - Chronic kidney disease, stage 3 unspecified Anti Glomerular Basement Memb Today N18.30 - Chronic kidney disease, stage 3 unspecified Complement C3 Today N18.30 - Chronic kidney disease, stage 3 unspecified UA and rflx microscopic Today N18.30 - Chronic kidney disease, stage 3 unspecified Basic Metabolic Panel Today N18.30 - Chronic kidney disease, stage 3 unspecified Coding Level of Care Code Est Pt Level 4 (40738) Diagnoses CKD (chronic kidney disease) stage 3, GFR 30-59 ml/min N18.30 HTN (hypertension) I10 Results Reviewed Nephrology Results: Hgb 11.6 g/dl (12.0-16.0) L 12/23/23 WBC 8.5 X10*3/uL (4.8-10.8) 12/23/23 Plt Count 398 X10*3/uL (160-400) 12/23/23 Sodium 140 mmol/L (135-145) 12/23/23 Potassium 5.0 mmol/L (3.3-5.1) 12/23/23 Chloride 105 mmol/L (96-108) 12/23/23 Carbon Dioxide 27 mmol/L (22-29) 12/23/23 BUN 20 mg/dL (9-16) H 12/23/23 Creatinine 1.39 mg/dL (0.5-1.4) 12/23/23 Calcium 9.5 mg/dL (8.4-10.2) 12/23/23 Urine Protein 100 (2+) mg/dL (Neg-Trace) H 11/07/23
[2024-01-10 11:13] VITALS: BP 170/80; PULSE 86; O2SAT 98; BMI 33.7
== END 2024-01-10 11:39 | disposition home or self-care (01) ==
PROVIDERS: PCP Internal Medicine; Visit Provider Internal Medicine Hypertension Specialist
DX: N18.30 Chronic kidney disease, stage 3 unspecified (principal); I10 Essential (primary) hypertension
CPT/HCPCS: 99214

== ENCOUNTER → 2024-01-10 10:55 | Outpatient (BNVA) | payer OTHER, SELFPAY | PROVIDERS: PCP Internal Medicine; Visit Provider Internal Medicine Hypertension Specialist | DX: I12.9 Hypertensive chronic kidney disease with stage 1 through stage 4 chronic kidney disease, or unspecified chronic kidney disease (principal); N18.30 Chronic kidney disease, stage 3 unspecified | CPT/HCPCS: 99212 ==

== ENCOUNTER 2024-01-10 11:46 | Outpatient (REF) | payer OTHER, SELFPAY ==
[2024-01-10 12:53] LABS: Anion Gap 14 (12-20); Blood Urea Nitrogen 26 mg/dL (9-16); Calcium 9.5 mg/dL (8.4-10.2); Carbon Dioxide 27 mmol/L (22-29); Chloride 108 mmol/L (96-108); Estimated Glomerular Filt Rate 31; Glucose Random 88 mg/dL (60-115); Potassium 4.5 mmol/L (3.3-5.1); Sodium 144 mmol/L (135-145)
[2024-01-10 14:16] LABS: Appearance Urine Clear; Color Urine Yellow; Glucose Urine UA Negative (Negative); Leukocyte Esterase Urine Negative (Negative); Nitrite Urine Negative (Negative); PH 5.5 (5.0-9.0); Urine Blood Negative (Negative); Urine Ketones Trace mg/dL (Negative); Urine Protein Trace mg/dL (Neg-Trace)
[2024-01-10 14:51] LABS: Creatinine Urine 158.96 mg/dL; Total Protein Urine Random 37 mg/dL (<12)
[2024-01-12 09:28] LABS: Complement C3 70 mg/dL (83-193)
[2024-01-12 13:08] LABS: Neutrophil Cyto Ab Screen NEGATIVE (NEGATIVE)
[2024-01-12 13:33] LABS: Anti Glomerular Basement Memb <1.0 AI; Myeloperoxidase Antibody <1.0 AI; Proteinase 3 PR3 Antibodies <1.0 AI
== END 2024-01-10 11:47 | disposition home or self-care (01) ==
LOC: HO.LAB 11:46
PROVIDERS: Visit Provider Internal Medicine Hypertension Specialist
DX: N18.30 Chronic kidney disease, stage 3 unspecified (principal); N05.9 Unspecified nephritic syndrome with unspecified morphologic changes
CPT/HCPCS: 36415; 80048; 81003; 82570; 83520; 84156; 86021; 86036; 86160

== ENCOUNTER 2024-01-23 09:58 | Outpatient (AMB) | payer OTHER, SELFPAY ==
[2024-01-23 10:01] VITALS: BP 150/80; PULSE 83; O2SAT 99; BMI 33.3
--- NOTE | 2024-01-23 10:01 | HO.NEPHOV ---
Vital Signs 01/23/24 10:01 01/23/24 10:24 Height 5 ft 3 in Weight 188 lb BMI 33.3 BP 150/80 H 140/70 H Blood Pressure Location Lt brachial Lt brachial Position Sitting Sitting Pulse 83 Pulse Source Pulse Oximeter Pulse Oximetry (%) 99 Oxygen Delivery Method Room Air Intake Visit Reasons: CKD FU/ Confirmed Hims Coder Required: Yes Hims Coder Name: [id number] Accompanied by: Self / Same As Patient Allergies sulfamethoxazole [From Bactrim] Allergy (Severe, Verified 01/23/24 10:03) Rash trimethoprim [From Bactrim] Allergy (Severe, Verified 01/23/24 10:03) Rash levofloxacin [From LEVAQUIN] Allergy (Intermediate, Verified 01/23/24 10:03) RASH SOB, DIZZYNESS tramadol Adverse Reaction (Severe, Verified 01/23/24 10:03) abdominal pain, vomiting acetaminophen [Tylenol-Codeine #3] Adverse Reaction (Intermediate, Verified 01/23/24 10:03) vomitting atorvastatin [Lipitor] Adverse Reaction (Intermediate, Verified 01/23/24 10:03) nausea codeine [CODEINE] Adverse Reaction (Intermediate, Verified 01/23/24 10:03) NAUSEA & VOMITING morphine [MORPHINE] Adverse Reaction (Intermediate, Verified 01/23/24 10:03) NAUSEA & VOMITING pravastatin Adverse Reaction (Intermediate, Verified 01/23/24 10:03) myalgia rosuvastatin Adverse Reaction (Mild, Verified 01/23/24 10:03) myalgia HPI Comments Details: 71 yo woman with history of Afib on Eliquis, DVTs, CKD, HTN, severe asthma/COPD on chronic prednisone and monthly infusions of Nucala , GERD, hypothyroidism, HLD She is here today for follow-up regarding CKD and hypertension. She seems compliant with her medications. Hims Coder service was used today. No specific complaints today. No headache nausea vomiting. No shortness of breath. No urinary symptoms. [facility] Medical History Chronic deep vein thrombosis (DVT) Right femoral vein DVT Osteoarthritis of knees, bilateral Mild recurrent major depression Polyarthralgia Osteopenia (~2007) Tubular adenoma of colon (~2009) Breast pain, left Postmenopausal Asthma-COPD overlap syndrome GERD (gastroesophageal reflux disease) HTN (hypertension) Paroxysmal atrial fibrillation (~01/2021) Dyslipidemia Hypothyroidism Pneumonia Eosinophilia Steroid dependent Chronic allergic rhinitis Asthma Surgical History History of right breast biopsy (~1998) History of colonoscopy History of D&C (~2002) History of tubal ligation History of shoulder surgery (~2006) History of nasal polypectomy (~2007) History of knee surgery Family History Father Medical history unknown Mother Alzheimer disease Daughter Lupus Other Arthritis Social History Household Members: None Housing: House Are you a primary care process manager to a significant other at home: No Do you presently have visiting nurse or other home services: Yes Alcohol intake: never Patient Tobacco Use Status: Former Tobacco user Tobacco use type: Cigarette e-Cigarette/Vaping Use: Never Used Second Hand Smoke Exposure: No Advance Directives Date on File: 11/10/20 service: No Current occupational status: disabled Cognitive needs: Yes (cane) Hearing needs: No Vision needs: Yes (glasses) Physical Exam Vital Signs: Last Vital Signs Pulse 83 01/23/24 10:01 BP 150/80 H 01/23/24 10:01 Pulse Ox 99 01/23/24 10:01 Oxygen Delivery Method Room Air 01/23/24 10:01 BMI result Body Mass Index 33.3 Const General: comfortable Nutritional Appearance: well nourished Orientation/consciousness: patient oriented x3 HEENT Head: No normal to inspection Mouth: moist mucous membranes Neck Neck: Yes supple and Yes no JVD Resp Auscultation: clear to auscultation bilaterally, no rales and rub present Cardio Jugular venous distension: no JVD Palpation: no palpable S3 and no palpable S4 Heart sounds: no rubs GI Palpation (GI): Soft to palpation and nontender Percussion: No Fluid wave present General: Yes no CVA tenderness Back/Spine/Pelvis Back: no CVA tenderness Skin General skin exam: no rashes or lesions noted Neuro General: patient oriented x3 Extrem General: Yes no pedal edema and No clubbing Results Reviewed Results Reviewed: Urine protein creatinine ratio of 0.23. Trace protein by dipstick Nephrology Results: Hgb 11.6 g/dl (12.0-16.0) L 12/23/23 WBC 8.5 X10*3/uL (4.8-10.8) 12/23/23 Plt Count 398 X10*3/uL (160-400) 12/23/23 Sodium 144 mmol/L (135-145) 01/10/24 Potassium 4.5 mmol/L (3.3-5.1) 01/10/24 Chloride 108 mmol/L (96-108) 01/10/24 Carbon Dioxide 27 mmol/L (22-29) 01/10/24 BUN 26 mg/dL (9-16) H 01/10/24 Creatinine 1.62 mg/dL (0.5-1.4) H 01/10/24 Calcium 9.5 mg/dL (8.4-10.2) 01/10/24 Urine Protein Trace mg/dL (Neg-Trace) 01/10/24 Urine Creatinine 158.96 mg/dL 01/10/24 Assessment & Plan Assessment & Plan (1) CKD (chronic kidney disease) stage 3, GFR 30-59 ml/min: Code(s): N18.30 - Chronic kidney disease, stage 3 unspecified Category: Medical (2) HTN (hypertension): Code(s): I10 - Essential (primary) hypertension Category: Medical Plan . 73-year-old woman with a history of asthma and hypertension with CKD IIIb. The EGFR is around 35 mL/minute. Over the last 2 years serum creatinine has been stable around 1.3-1.6 mg/dL. Overall blood pressure is better controlled. She has minimal proteinuria. Urinary sediments are benign. Sona probably has underlying hypertensive nephrosclerosis. Recommendations include Stay on low-sodium diet. Increase p.o. fluid intake. Maintain blood pressure less than 130/80 mm Hg. Continue to avoid nephrotoxic agents including NSAIDs. Continue to monitor renal function closely along with urine protein excretion. No absolute indication for biopsy at this time. I will follow closely. Orders: Orders Basic Metabolic Panel 2 Months N18.30 - Chronic kidney disease, stage 3 unspecified
[2024-01-23 10:24] VITALS: BP 140/70
== END 2024-01-23 10:27 | disposition home or self-care (01) ==
LOC: HO.HKA 09:58
PROVIDERS: PCP Internal Medicine; Visit Provider Internal Medicine Hypertension Specialist
DX: N18.30 Chronic kidney disease, stage 3 unspecified (principal); I10 Essential (primary) hypertension
CPT/HCPCS: 99214

== ENCOUNTER → 2024-01-23 09:58 | Outpatient (BNVA) | payer OTHER, SELFPAY | PROVIDERS: PCP Internal Medicine; Visit Provider Internal Medicine Hypertension Specialist | DX: I12.9 Hypertensive chronic kidney disease with stage 1 through stage 4 chronic kidney disease, or unspecified chronic kidney disease (principal); N18.32 Chronic kidney disease, stage 3b | CPT/HCPCS: 99212 ==

== ENCOUNTER 2024-02-08 09:54 | Emergency (ER) | payer OTHER, SELFPAY ==
--- NOTE | ~2024-02-08 | CT_ITS ---
EXAMINATION: CT ABDOMEN AND PELVIS WITHOUT CONTRAST CLINICAL INFORMATION: Epigastric and right upper quadrant pain. COMPARISON: CT abdomen/pelvis 07/15/2023. TECHNIQUE: Multidetector volumetric imaging was performed from the superior aspect of the liver through the pubic symphysis. Sagittal and coronal reformatted images were obtained on the technologist's workstation. This CT examination was performed using dose optimization techniques as appropriate, variously including the following: *Automated exposure control *Adjustment of mA and/or kV according to patient size (this includes techniques or standardized protocols for targeted exams where dose is matched to indication/reason for exam; i.e. extremities or head) *Use of iterative reconstruction technique DLP: 705 mGy-cm FINDINGS: The lack of intravenous contrast limits evaluation of the solid visceral organs including the liver, spleen, pancreas, and kidneys. LUNG BASES: Small calcified granulomas. No consolidation or pleural effusion. LIVER, GALLBLADDER, AND BILIARY TREE: The liver is normal in size, shape, and attenuation. No focal hepatic lesion or biliary ductal dilatation is present. The gallbladder is unremarkable with no evidence of radiopaque gallstones, gallbladder wall thickening, or obvious pericholecystic inflammatory changes. PANCREAS: Unremarkable. SPLEEN: Unremarkable. ADRENAL GLANDS: Unremarkable. KIDNEYS AND URETERS: Stable simple appearing cortical and parapelvic cysts in the interpolar right kidney, for which no imaging follow-up is recommended. No nephrolithiasis or hydronephrosis. No perinephric fat stranding. BLADDER: Unremarkable. GASTROINTESTINAL TRACT: The stomach and the small bowel are nondilated. Small hiatal hernia. Normal appendix. Mild colonic diverticulosis without significant pericolonic inflammatory changes. No evidence of bowel obstruction. ABDOMINAL WALL: Small fat-containing left inguinal hernia. LYMPH NODES: No lymphadenopathy. VASCULAR: Scattered atherosclerotic disease. Normal caliber of the abdominal aorta. PELVIC VISCERA: Uterine lesions, some of which are partially calcified, not significantly changed in favor to represent fibroids. Asymmetrically enlarged left gonadal vein in continuity with a tubular-shaped abnormality that is inseparable from the left ovary with a similar appearance compared to 07/15/2023 (image 61 series 3). Additional engorged left-sided parametrial varices, unchanged (image 64 series 3). No free fluid. OSSEOUS STRUCTURES: Degenerative changes of the spine. No acute or aggressive appearing osseous findings. CT/CT abdomen pelvis wo IV con IMPRESSION: 1. No acute intra-abdominal or pelvic abnormalities to explain the patient's symptoms. 2. Mild colonic diverticulosis but no evidence of acute diverticulitis. 3. Small hiatal hernia. 4. Again noted is asymmetric enlargement of the left gonadal vein in continuity with tubular-shaped abnormality in the left adnexa most likely representing engorged parametrial varices and pelvic venous insufficiency with reflux disease; though the left ovary and fallopian tube are not well delineated, unable to rule out dilatation of the tube and ovarian lesion. Recommend further characterization with pelvic ultrasound. 5. Fibroid uterus.
[2024-02-08 10:31] VITALS: BP 152/60; PULSE 72; RESP 16; TEMP 37; O2SAT 98; BMI 33.5
[2024-02-08 10:53] LABS: MANUAL DIFF FLAG NO
[2024-02-08 10:56] LABS: Basophils Absolute Auto 0.1 X10*3/uL (0.0-0.2); Basophils Percent Auto 0.9 % (0-2); Eosinophils Absolute Auto 0.1 X10*3/uL (0.0-0.4); Eosinophils Percent Auto 0.9 % (0-4); Hematocrit 37.1 % (37.0-47.0); Hemoglobin 11.5 g/dl (12.0-16.0); Imm Gran Abs Auto 0.02 X10*3/uL (0.00-0.03); Imm Gran Pct Auto 0.3 % (0.0-0.4); Lymphocytes Percent Auto 29.7 % (20-40); Mean Corpuscular Hemoglobin 26.6 pg (27.0-33.0); Mean Corpuscular Volume 85.9 fL (80.0-98.0); Mean Platelet Volume 8.9 fL (9.4-12.3); Monocytes Absolute Auto 0.5 X10*3/uL (0.1-1.2); Monocytes Percent Auto 7.2 % (2-11); Neutrophils Absolute Auto 4.2 x10*3/uL (2.0-8.3); Platelet Count 365 X10*3/uL (160-400); Red Blood Count 4.32 X10*6/uL (4.20-5.50); Red Cell Distribution Width 15.4 % (11.0-16.0); White Blood Count 6.8 X10*3/uL (4.8-10.8)
[2024-02-08 10:57] LABS: Appearance Urine Clear; Color Urine Yellow; Glucose Urine UA Negative (Negative); Leukocyte Esterase Urine Negative (Negative); Nitrite Urine Negative (Negative); PH 5.5 (5.0-9.0); Specific Gravity - Urine 1.025 (1.005-1.025); UMIC TRIGGER UACC YES; Urine Blood Trace (Negative); Urine Ketones Trace mg/dL (Negative); Urine Protein 30 (1+) mg/dL (Neg-Trace)
[2024-02-08 11:06] LABS: Bacteria Urine None Seen (None Seen); Hyaline Casts Urine 0-2 /LPF (0-2); Squamous Epithelial Cell Urine 0-2 /HPF (0-2); WBC Urine 0-5 /HPF (0-5)
[2024-02-08 11:14] LABS: Alanine Aminotransferase 11 U/L (0-31); Albumin Level 4.2 g/dL (3.5-5.0); Alkaline Phosphatase 78 U/L (39-117); Anion Gap 16 (12-20); Aspartate Amino Transferase 17 U/L (5-31); Bilirubin Direct 0.1 mg/dL (0.0-0.5); Bilirubin Total 0.4 mg/dL (0.0-1.0); Blood Urea Nitrogen 23 mg/dL (9-16); Carbon Dioxide 26 mmol/L (22-29); Chloride 105 mmol/L (96-108); Creatinine Clr Calc Pharmacy 30.4; Estimated Glomerular Filt Rate 30; Glucose Random 89 mg/dL (60-115); Lipase 25 U/L (8-78); Potassium 4.8 mmol/L (3.3-5.1); Sodium 142 mmol/L (135-145); Total Protein 7.7 g/dL (6.5-8.0)
[2024-02-08 11:31] LABS: Influenza A PCR NEGATIVE (Negative); Influenza B PCR NEGATIVE (Negative); Resp Syncy Virus RNA Qual PCR NEGATIVE (Negative); SARS COV2 PCR INHOUSE NEGATIVE (Negative)
[2024-02-08 16:07] VITALS: BP 191/50; PULSE 77; RESP 20; TEMP 36.1; O2SAT 97
--- NOTE | 2024-02-08 16:11 | ED.ABDPAIN ---
HPI - Abdominal Pain General Chief Complaint: Abdominal Pain Stated Complaint: Vomiting Not Feeling Well Time Seen by Provider: 02/08/24 19:12 Source: patient Mode of arrival: ambulatory Limitations: no limitations History of Present Illness HPI narrative: 73-year-old female presents emergency room with nausea vomiting for 2 days epigastric pain. Patient has history of chronic epigastric pain urinary incontinence left hip pain generalized weak he is trochanteric bursitis of the right hip osteoarthritis of the knees bilaterally lumbar spinal stenosis chronic kidney disease stage 3 depression polyarthralgia paroxysmal atrial fibrillation hypertension hyperlipidemia COPD hypothyroidism steroid dependent COPD hypersomnia who presents emergency department after having nausea and vomiting for the past 2 days patient was seen on triage labs were ordered. She states that anytime she eats anything for the past 2 days she vomits she states never had problem fine but the symptoms have been going for months she has not seen her primary care doctor she states she called once was not able to be seen as quickly she would like so she came to emergency room today Related Data Home Medications ?Medication ?Instructions ?Recorded ?Confirmed escitalopram oxalate 10 mg tablet 10 mg PO DAILY 05/17/22 12/15/23 aripiprazole 5 mg tablet 5 mg PO DAILY 07/09/22 12/15/23 ipratropium 0.5 mg-albuterol 3 mg 3 ml inhalation QID PRN Shortness 07/25/22 12/15/23 (2.5 mg base)/3 mL nebulization Of Breath soln nebulizers 09/30/23 12/15/23 Previous Rx's ?Medication ?Instructions ?Recorded lift recliner #1 ea 01/08/23 polyethylene glycol 3350 17 17 g PO DAILY PRN constipation 30 03/21/23 gram/dose oral powder (Miralax) days #119 grams apixaban 5 mg tablet (Eliquis) 5 mg PO BID #60 tabs 06/27/23 prednisone 5 mg tablet 5 mg PO DAILY #30 tabs 06/27/23 tamsulosin 0.4 mg capsule (Flomax) 0.4 mg PO DAILY 14 days #14 caps 07/15/23 dronedarone 400 mg tablet (Multaq) 400 mg PO BID 90 days #180 tabs 07/19/23 loratadine 10 mg tablet 10 mg PO DAILY 90 days #90 tabs 07/20/23 albuterol sulfate 90 mcg/actuation 2 puff PO Q6H PRN for wheezing #18 07/25/23 aerosol inhaler (Ventolin HFA) ea triamcinolone acetonide 0.5 % 1 appl topical BID #30 grams 07/26/23 topical cream diltiazem HCl 120 mg 120 mg PO DAILY 90 days #90 caps 07/27/23 capsule,extended release 24 hr (Cardizem CD) adona pillow seat and cushion #1 ea 09/07/23 albuterol sulfate 2.5 mg/3 mL 2.5 mg (3 mL) inhalation Q6H PRN 09/08/23 (0.083 %) solution for nebulization shortness of breath or wheezing 30 days #180 mL omeprazole 20 mg capsule,delayed 20 mg PO DAILY PRN heartburn 30 10/19/23 release days #30 caps sennosides 8.6 mg tablet (senna) 8.6 mg PO BEDTIME PRN constipation 10/19/23 30 days #30 tabs rosuvastatin 10 mg tablet (Crestor) 10 mg PO DAILY 90 days #90 tabs 10/20/23 famotidine 20 mg tablet 20 mg PO BEDTIME 90 days #90 tabs 10/26/23 fluocinolone acetonide oil 0.01 % 5 drp otic (ear) left BID 7 days 12/01/23 ear drops (DermOtic Oil) #20 mL hydrocortisone 1 % topical cream 1 appl topical TID PRN itching 12/23/23 (Anti-Itch (hydrocortisone)) #28.4 grams levothyroxine 25 mcg tablet 25 mcg PO DAILY 90 days #90 tabs 01/06/24 mepolizumab 100 mg/mL subcutaneous 100 mg subcut Q4W #1 mL 01/06/24 syringe (Nucala) hand held shower head #1 ea 01/10/24 incontinence pad, liner, disp #60 ea 01/10/24 latex gloves #48 ea 01/10/24 quilted wipes #200 ea 01/10/24 underpads (Bed Underpads) #100 ea 01/10/24 losartan 25 mg tablet 25 mg PO DAILY 90 days #90 tabs 01/16/24 umeclidinium 62.5 mcg/actuation 1 inh inhalation DAILY #30 ea 01/27/24 blister powder for inhalation (Incruse Ellipta) famotidine 20 mg tablet (Pepcid) 20 mg PO BID PRN gastritis #60 tabs 02/08/24 ondansetron 4 mg disintegrating 4 mg PO Q6H #14 tabs 02/08/24 tablet Allergies Allergy/AdvReac Type Severity Reaction Status Date / Time sulfamethoxazole Allergy Severe Rash Verified 02/08/24 10:32 [From Bactrim] trimethoprim [From Bactrim] Allergy Severe Rash Verified 02/08/24 10:32 levofloxacin [From LEVAQUIN] Allergy Intermediate RASH SOB, Verified 02/08/24 10:32 DIZZYNESS tramadol AdvReac Severe abdominal Verified 02/08/24 10:32 pain, vomiting atorvastatin [Lipitor] AdvReac Intermediate nausea Verified 02/08/24 10:32 codeine [CODEINE] AdvReac Intermediate NAUSEA & Verified 02/08/24 10:32 VOMITING morphine [MORPHINE] AdvReac Intermediate NAUSEA & Verified 02/08/24 10:32 VOMITING pravastatin AdvReac Intermediate myalgia Verified 02/08/24 10:32 rosuvastatin AdvReac Mild myalgia Verified 02/08/24 10:32 Review of Systems Review of Systems Review of systems: General: Patient denies any fever chills recent illness or falls Musculoskeletal: Denies back pain or body aches or other injuries HEENT: denies headache, runny nose, ear pain Respiratory: denies shortness of breath, cough Cardiovascular: no chest pain or palpitations : denies dysuria, frequency Abdomen: nausea vomiting epigastric abdominal pain Extremities: no swelling, no pain Skin: no diaphoresis Yes all other systems are reviewed and are negative PMFSH Past Medical History Medical History Chronic deep vein thrombosis (DVT) Right femoral vein DVT Osteoarthritis of knees, bilateral Mild recurrent major depression Polyarthralgia Osteopenia (~2007) Tubular adenoma of colon (~2009) Breast pain, left Postmenopausal Asthma-COPD overlap syndrome GERD (gastroesophageal reflux disease) HTN (hypertension) Paroxysmal atrial fibrillation (~01/2021) Dyslipidemia Hypothyroidism Pneumonia Eosinophilia Steroid dependent Chronic allergic rhinitis Asthma Surgical History History of right breast biopsy (~1998) History of colonoscopy History of D&C (~2002) History of tubal ligation History of shoulder surgery (~2006) History of nasal polypectomy (~2007) History of knee surgery Family History Family History Father Medical history unknown Mother Alzheimer disease Daughter Lupus Other Arthritis Social History Social History Household Members: None Housing: House Are you a primary cattle care worker to a significant other at home: No Do you presently have visiting nurse or other home services: Yes Alcohol intake: never Patient Tobacco Use Status: Former Tobacco user Tobacco use type: Cigarette e-Cigarette/Vaping Use: Never Used Second Hand Smoke Exposure: No Advance Directives: No Advance Directives Information Provided: No Advance Directives Date on File: 11/10/20 service: No Current occupational status: disabled Cognitive needs: Yes (cane) Hearing needs: No Vision needs: Yes (glasses) Physical Exam ED Vital Signs: Vital Signs - 24 hr 02/08/24 10:31 02/08/24 16:07 02/08/24 19:02 Temperature 98.6 F 96.9 F 97.7 F Pulse Rate 72 77 62 Respiratory Rate 16 20 16 Blood Pressure 152/60 H 191/50 H 173/65 H Pulse Oximetry 98 97 98 Oxygen Delivery Method Room Air Room Air Room Air BMI result Body Mass Index 33.5 General: Well-appearing well-nourished in no signs of distress HEENT: Normocephalic atraumatic Neck: No signs of JVD, no masses no tenderness or lymphadenopathy Cardiovascular: Regular rate and rhythm Respiratory: Clear to auscultation bilaterally Abdomen: Soft nontender no masses Extremities: Normal pedal pulses no signs of edema Skin: Dry warm no rashes Back: No tenderness full ROM Course Course Course Narrative: This is a Rapid Medical Examination (RME) performed by Mark Rocha PA-C in triage. Full HPI, ROS, assessment and treatment plan per primary provider in the Main ED. 73 year old [place]-speaking female presents to the ED today for evaluation of nausea, vomiting and epigastric pain x2 days. Endorses generalized weakness and dizziness with this. Admits that every time she eats something she immediately, sit up. Admits epigastric pain came before the vomiting. No known sick contacts. No GI history. Denies fever, chills, diarrhea, dysuria, hematuria, flank pain. Obese abdomen. Slightly tender to palpation over the epigastric region. No rebound or guarding. Normoactive bowel sounds x4. Plan: Labs, viral serology, UA, CT ordered Medical Decision Making Medical Decision Making [facility] Narrative: Patient looks well labs are normal CT of the abdomen and pelvis were also unremarkable I will give the patient Maalox Pepcid Zofran and omeprazole and have the patient follow up with her doctor. I will give patient some sucralfate Pepcid and Maalox here Differential Diagnosis Differential Diagnoses: The differential diagnosis associated with the presentation includes Surgical abdomen gastritis dehydration electrolyte abnormality kidney infection UTI Lab Data 02/08/24 10:48 02/08/24 10:48 Labs: Lab Results 02/08/24 Range/Units 10:48 WBC 6.8 (4.8-10.8) X10*3/uL RBC 4.32 (4.20-5.50) X10*6/uL Hgb 11.5 L (12.0-16.0) g/dl Hct 37.1 (37.0-47.0) % MCV 85.9 (80.0-98.0) fL MCH 26.6 L (27.0-33.0) pg MCHC 31.0 (31.0-35.0) g/dl RDW 15.4 (11.0-16.0) % Plt Count 365 (160-400) X10*3/uL MPV 8.9 L (9.4-12.3) fL Immature Gran % (Auto) 0.3 (0.0-0.4) % Neut % (Auto) 61.0 (45-73) % Lymph % (Auto) 29.7 (20-40) % [place] % (Auto) 7.2 (2-11) % Eos % (Auto) 0.9 (0-4) % Baso % (Auto) 0.9 (0-2) % Lymph # (Auto) 2.0 (1.2-4.9) X10*3/uL [place] # (Auto) 0.5 (0.1-1.2) X10*3/uL Eos # (Auto) 0.1 (0.0-0.4) X10*3/uL Baso # (Auto) 0.1 (0.0-0.2) X10*3/uL Abs Immat Gran (auto) 0.02 (0.00-0.03) X10*3/uL Absolute Neuts (auto) 4.2 (2.0-8.3) x10*3/uL Absolute Nucleated RBC 0.000 (0.0-0.012) X10*3/uL Nucleated RBC % (auto) 0.0 (0.0-0.2) /100WBC Sodium 142 (135-145) mmol/L Potassium 4.8 (3.3-5.1) mmol/L Chloride 105 (96-108) mmol/L Carbon Dioxide 26 (22-29) mmol/L Anion Gap 16 (12-20) BUN 23 H (9-16) mg/dL Creatinine 1.68 H (0.5-1.4) mg/dL Estim Creat Clear Calc 30.4 Estimated GFR 30 Random Glucose 89 (60-115) mg/dL Calcium 10.0 (8.4-10.2) mg/dL Total Bilirubin 0.4 (0.0-1.0) mg/dL Direct Bilirubin 0.1 (0.0-0.5) mg/dL AST 17 (5-31) U/L ALT 11 (0-31) U/L Alkaline Phosphatase 78 (39-117) U/L Total Protein 7.7 (6.5-8.0) g/dL Albumin 4.2 (3.5-5.0) g/dL Lipase 25 (8-78) U/L Urine Color Yellow Urine Appearance Clear Urine pH 5.5 (5.0-9.0) Ur Specific [place] 1.025 (1.005-1.025) Urine Protein 30 (1+) H (Neg-Trace) mg/dL Urine Glucose (UA) Negative (Negative) mg/dL Urine Ketones Trace (Negative) mg/dL Urine Blood Trace H (Negative) Urine Nitrite Negative (Negative) Ur Leukocyte Esterase Negative (Negative) Urine RBC 3-5 H (0-2) /HPF Urine WBC 0-5 (0-5) /HPF Ur Squamous Epith Cells 0-2 (0-2) /HPF Urine Bacteria None Seen (None Seen) Hyaline Casts 0-2 (0-2) /LPF Influenza Type A (PCR) NEGATIVE (Negative) Influenza Type B (PCR) NEGATIVE (Negative) RSV RNA Qual (PCR) NEGATIVE (Negative) SARS-CoV-2 RNA (RT-PCR) NEGATIVE (Negative) Discharge Plan Discharge Clinical Impression: Dehydration, Vomiting, Gastritis Patient Disposition: Home, Self-Care Instructions: Gastritis (DC), Dehydration (ED), Diet for Stomach Ulcers and Gastritis (ED), Acute Nausea and Vomiting (ED) Additional Instructions: You seen today in emergency department for acute nausea vomiting dehydration and inflammation of your stomach. Your labs and CT scan done which were all unremarkable. He need call follow up with her doctor you can take Pepcid and Maalox as needed for pain you should also be taking the omeprazole once a day and Pepcid twice a day Prescriptions: New famotidine [Pepcid] 20 mg tablet 20 mg PO BID PRN (Reason: gastritis) Qty: 60 0RF ondansetron 4 mg tablet,disintegrating 4 mg PO Q6H Qty: 14 0RF No Action (DME) lift recliner See Rx Instructions .Route .MEDSUPPLY Qty: 1 0RF Rx Instructions: As directed prednisone 5 mg tablet 5 mg PO DAILY Qty: 30 11RF Hold Instructions: resume after completion of prednisone taper Eliquis 5 mg tablet 5 mg PO BID Qty: 60 5RF Multaq 400 mg tablet 400 mg PO BID 90 Days Qty: 180 1RF loratadine 10 mg tablet 10 mg PO DAILY 90 Days Qty: 90 3RF albuterol sulfate [Ventolin HFA] 90 mcg/actuation HFA aerosol inhaler 2 puff PO Q6H PRN (Reason: for wheezing) Qty: 18 12RF diltiazem HCl [Cardizem CD] 120 mg capsule,extended release 24hr 120 mg PO DAILY 90 Days Qty: 90 3RF (DME) adona pillow seat and cushion See Rx Instructions .Route .MEDSUPPLY Qty: 1 0RF Rx Instructions: As directed albuterol sulfate 2.5 mg /3 mL (0.083 %) solution for nebulization 2.5 mg inhalation Q6H PRN (Reason: shortness of breath or wheezing) 30 Days Qty: 180 11RF sennosides [senna] 8.6 mg tablet 8.6 mg PO BEDTIME PRN (Reason: constipation) 30 Days Qty: 30 0RF omeprazole 20 mg capsule,delayed release(DR/EC) 20 mg PO DAILY PRN (Reason: heartburn) 30 Days Qty: 30 0RF rosuvastatin [Crestor] 10 mg tablet 10 mg PO DAILY 90 Days Qty: 90 1RF famotidine 20 mg tablet 20 mg PO BEDTIME 90 Days Qty: 90 1RF fluocinolone acetonide oil [DermOtic Oil] 0.01 % drops 5 drp otic (ear) left BID 7 Days Qty: 20 0RF Nucala 100 mg/mL syringe 100 mg subcut Q4W Qty: 1 11RF levothyroxine 25 mcg tablet 25 mcg PO DAILY 90 Days Qty: 90 1RF (DME) underpads [Bed Underpads] Pad See Rx Instructions .Route Qty: 100 11RF Rx Instructions: As directed (DME) incontinence pad, liner, disp Pad See Rx Instructions .Route Qty: 60 11RF Rx Instructions: Use 1 pad twice a day (DME) quilted wipes See Rx Instructions .Route .MEDSUPPLY Qty: 200 12RF Rx Instructions: As directed (DME) latex gloves Misc See Rx Instructions .Route Qty: 48 11RF Rx Instructions: Use 1 pair of gloves twice a day (DME) hand held shower head See Rx Instructions .Route .MEDSUPPLY Qty: 1 0RF Rx Instructions: As directed losartan 25 mg tablet 25 mg PO DAILY 90 Days Qty: 90 1RF Incruse Ellipta 62.5 mcg/actuation blister with device 1 inh inhalation DAILY Qty: 30 6RF ipratropium-albuterol 0.5 mg-3 mg(2.5 mg base)/3 mL solution for nebulization 3 ml inhalation QID PRN (Reason: Shortness Of Breath) tamsulosin [Flomax] 0.4 mg capsule 0.4 mg PO DAILY 14 Days Qty: 14 0RF hydrocortisone [Anti-Itch (HC)] 1 % cream 1 appl topical TID PRN (Reason: itching) Qty: 28.4 0RF polyethylene glycol 3350 [Miralax] 17 gram/dose powder 17 g PO DAILY PRN (Reason: constipation) 30 Days Qty: 119 1RF triamcinolone acetonide 0.5 % cream 1 appl topical BID Qty: 30 0RF aripiprazole 5 mg tablet 5 mg PO DAILY escitalopram oxalate 10 mg tablet 10 mg PO DAILY (DME) nebulizers Misc See Rx Instructions .Route Rx Instructions: As directed Print Language: Unable To Collect
[2024-02-08 19:02] VITALS: BP 173/65; PULSE 62; RESP 16; TEMP 36.5; O2SAT 98
[2024-02-08] MEDS: Sucralfate Oral Suspension 1 GM/10 ML ORAL.SUSP PO (19:47)
[2024-02-08] MEDS: Magnesium Hydrox/Alum Hydrox 30 ML ORAL.SUSP PO (19:48)
--- NOTE | 2024-02-08 19:53 | PC.NURSE ---
pt refused admin of pepcid and zofran. sts that she believes her stomach hurts because she takes so many medications.
[2024-02-08 19:54] VITALS: BP 173/65; PULSE 62; RESP 16; TEMP 36.5; O2SAT 98
== END 2024-02-08 19:55 | disposition home or self-care (01) ==
PROVIDERS: Emergency Provider Student in an Organized Health Care Education/Training Program; PCP Internal Medicine
DX: R10.13 Epigastric pain (principal); K29.70 Gastritis, unspecified, without bleeding; E86.0 Dehydration; R11.2 Nausea with vomiting, unspecified; R32 Unspecified urinary incontinence; Z03.818 Encounter for observation for suspected exposure to other biological agents ruled out; Z79.899 Other long term (current) drug therapy; Z87.891 Personal history of nicotine dependence
CPT/HCPCS: 0241U; 74176; 80048; 80076; 81001; 83690; 85025; 99283; 99284

== ENCOUNTER → 2024-02-13 09:57 | Outpatient (BNVA) | payer OTHER, SELFPAY | PROVIDERS: PCP Internal Medicine; Visit Provider Internal Medicine Cardiovascular Disease ==

== ENCOUNTER 2024-02-14 08:14 | Outpatient (REF) | payer OTHER, SELFPAY | END 2024-02-14 08:15 | disposition home or self-care (01) | LOC: HO.XRAY 08:14 | PROVIDERS: PCP Internal Medicine; Visit Provider Internal Medicine | DX: Z13.89 Encounter for screening for other disorder (principal) ==

== ENCOUNTER 2024-03-06 13:42 | Outpatient (AMB) | payer OTHER, SELFPAY ==
--- NOTE | 2024-03-06 13:47 | A.OFFPC_ITS ---
Vital Signs 03/06/24 13:49 Height 5 ft 3 in Weight 188 lb BMI 33.3 BP 136/70 Blood Pressure Location Lt brachial Position Sitting Intake Visit Reasons: neck pain Intake Note: Patient here c/o neck/upper back pain, CT done at [facility] [place] in December follow up, would like to know if she can take Tylenol Arthritis for her pain Retreader Required: No Accompanied by: Self / Same As Patient Allergies sulfamethoxazole [From Bactrim] Allergy (Severe, Verified 03/06/24 14:14) Rash trimethoprim [From Bactrim] Allergy (Severe, Verified 03/06/24 14:14) Rash levofloxacin [From LEVAQUIN] Allergy (Intermediate, Verified 03/06/24 14:14) RASH SOB, DIZZYNESS tramadol Adverse Reaction (Severe, Verified 03/06/24 14:14) abdominal pain, vomiting atorvastatin [Lipitor] Adverse Reaction (Intermediate, Verified 03/06/24 14:14) nausea codeine [CODEINE] Adverse Reaction (Intermediate, Verified 03/06/24 14:14) NAUSEA & VOMITING morphine [MORPHINE] Adverse Reaction (Intermediate, Verified 03/06/24 14:14) NAUSEA & VOMITING pravastatin Adverse Reaction (Intermediate, Verified 03/06/24 14:14) myalgia rosuvastatin Adverse Reaction (Mild, Verified 03/06/24 14:14) myalgia Medication List - Last Reconciled 03/06/24 by Angelique Valentine MD [adona pillow seat and cushion As directed] albuterol sulfate 90 mcg/actuation (Ventolin HFA) 2 puffs PO Q6H PRN albuterol sulfate 2.5 mg (3 mL) inhalation Q6H PRN 30 days apixaban (Eliquis) 5 mg PO BID aripiprazole 5 mg PO DAILY diltiazem HCl CD (Cardizem CD) 120 mg PO DAILY 90 days dronedarone (Multaq) 400 mg PO BID 90 days escitalopram oxalate 10 mg PO DAILY famotidine (Pepcid) 20 mg PO BID PRN famotidine 20 mg PO BEDTIME 90 days fluocinolone acetonide oil 0.01% (DermOtic Oil) 5 drps otic (ear) left BID 7 days [hand held shower head As directed] hydrocortisone 1% (Anti-Itch (hydrocortisone)) 1 appl topical TID PRN incontinence pad, liner, disp Use 1 pad twice a day ipratropium-albuterol 0.5 mg-3 mg(2.5 mg base)/3 mL 3 mL inhalation QID PRN latex gloves Use 1 pair of gloves twice a day levothyroxine 25 mcg PO DAILY 90 days [lift recliner As directed] loratadine 10 mg PO DAILY 90 days losartan 25 mg PO DAILY 90 days mepolizumab (Nucala) 100 mg subcut Q4W nebulizers As directed omeprazole 20 mg PO DAILY PRN 30 days ondansetron 4 mg PO Q6H polyethylene glycol 3350 (Miralax) 17 grams PO DAILY PRN 30 days prednisone 5 mg PO DAILY [quilted wipes As directed] rosuvastatin (Crestor) 10 mg PO DAILY 90 days sennosides (senna) 8.6 mg PO BEDTIME PRN 30 days tamsulosin (Flomax) 0.4 mg PO DAILY 14 days triamcinolone acetonide 0.5% 1 appl topical BID umeclidinium 62.5 mcg/actuation (Incruse Ellipta) 1 inh inhalation DAILY underpads (Bed Underpads) As directed Tobacco use date assessed: 12/15/23 Fall risk assessment: No Falls in past year Last assessed Fall Risk: 03/06/24 Dental Screening Dental Screen Date: 12/15/23 HPI HPI Comments History of Present Illness Details This is a 73-year-old female with hypertension, mild recurrent major depression, asthma-COPD overlap syndrome, chronic kidney disease stage 3 hand thyroid nodule that comes today for follow-up on her conditions. Blood pressure stable. Depression well controlled with Abilify. On long-acting inhaler for her asthma-COPD overlap syndrome and this has been follow by pulmonology and has markedly improved with treatment. Her GFR has not significantly changed and she is aware she has to avoid NSAIDs. Went to ER due to neck pain and neck imaging shows thyroid nodule and an ultrasound of the thyroid will be ordered. Also CT scan of abdomen and pelvis shows fibroids in uterus and ultrasound of the pelvis will be ordered. She also has paroxysmal atrial fibrillation on chronic anticoagulation and this is follow by cardiology. [facility] Medical History (Updated 03/06/24 @ 14:23 by Angelique Valentine MD) Chronic deep vein thrombosis (DVT) Right femoral vein DVT Osteoarthritis of knees, bilateral Mild recurrent major depression Polyarthralgia Osteopenia (~2007) Tubular adenoma of colon (~2009) Breast pain, left Postmenopausal Asthma-COPD overlap syndrome GERD (gastroesophageal reflux disease) HTN (hypertension) Paroxysmal atrial fibrillation (~01/2021) Dyslipidemia Hypothyroidism Pneumonia Eosinophilia Steroid dependent Chronic allergic rhinitis Asthma Surgical History History of right breast biopsy (~1998) History of colonoscopy History of D&C (~2002) History of tubal ligation History of shoulder surgery (~2006) History of nasal polypectomy (~2007) History of knee surgery Family History Father Medical history unknown Mother Alzheimer disease Daughter Lupus Other Arthritis Social History Household Members: None Housing: House Are you a primary home care provider to a significant other at home: No Do you presently have visiting nurse or other home services: Yes Alcohol intake: never Patient Tobacco Use Status: Former Tobacco user Tobacco use type: Cigarette e-Cigarette/Vaping Use: Never Used Second Hand Smoke Exposure: No Advance Directives Date on File: 11/10/20 service: No Current occupational status: disabled Cognitive needs: Yes (cane) Hearing needs: No Vision needs: Yes (glasses) Questionnaire PHQ-9 Over the last 2 weeks, how often have you been bothered by any of the following problems? 1. Little interest or pleasure in doing things: several days 2. Feeling down, depressed, or hopeless: several days 3. Trouble falling or staying asleep, or sleeping too much: several days 4. Feeling tired or having little energy: several days 5. Poor appetite or overeating: not at all 6. Feeling bad about yourself - or that you are a failure or have let yourself or your family down: not at all 7. Trouble concentrating on things, such as reading the newspaper or watching television: not at all 8. Moving or speaking so slowly that other people could have noticed. Or the opposite - being so fidgety or restless that you have been moving around a lot more than usual: not at all 9. Thoughts that you would be better off or of hurting yourself in some way: not at all Total score: 4 Depression Screening Interpretation: Positive Depression Screening Follow-up: Existing condition, In treatment and Follow-up Visit Requested Depression Screening Done: Yes 58563 - PHQ-9 Billing: Yes Source: Developed by Drs. Mk Zapata, Roseline Pantoja, Nura Bailon and colleagues, with an educational camila from [employer]. Thrive Questionnaire Date Thrive assessed: 12/15/23 FABIOLA-7 AMB Questionnaire FABIOLA-7 Date FABIOLA - 7 assessed: 12/15/23 Source: Developed by Drs. Mk Zapata, Roseline Pantoja, Nura Bailon and colleagues, with an educational camila from [employer]. Review of Systems Const All systems reviewed & are unremarkable except as noted in HPI and below Card Denies chest pain at rest, Denies chest pain with activity, Denies edema, Denies irregular heart rhythm, Denies claudication, Denies dyspnea, Denies dyspnea on exertion, Denies orthopnea, Denies paroxysmal nocturnal dyspnea and Denies slow heart rate Resp Denies cough, Denies dyspnea and Denies dyspnea on exertion Physical exam (Primary Care) Vital Signs: Last Vital Signs BP 136/70 03/06/24 13:49 BMI result Body Mass Index 33.3 Tobacco/Smoking Status: Tobacco use Status Tobacco use date assessed 12/15/23 03/06/24 13:48 Patient Tobacco Use Status Former Tobacco user 03/06/24 13:48 Tobacco use type Cigarette 03/06/24 13:48 e-Cigarette/Vaping Use Never Used 03/06/24 13:48 Depression Screening Interpretation: Positive Depression Screening Follow-up: Existing condition, In treatment and Follow-up Visit Requested Thrive Assessment: Date of Thrive Assessment Date Thrive assessed 12/15/23 03/06/24 13:48 Resp Effort & Inspection: normal respiratory effort Auscultation: clear to auscultation bilaterally Cardio Jugular venous distension: no JVD Rate: regular rate Rhythm: regular rhythm Heart sounds: S1 normal heart sound present and S2 normal heart sound present Extrem General: Yes full ROM Assessment and Plan Assessment & Plan (1) Thyroid nodule: Code(s): E04.1 - Nontoxic single thyroid nodule Plan: Ultrasound of the thyroid ordered. (2) Mild recurrent major depression: Code(s): F33.0 - Major depressive disorder, recurrent, mild Plan: Continue Abilify. (3) Paroxysmal atrial fibrillation: Onset Date: ~01/2021 Code(s): I48.0 - Paroxysmal atrial fibrillation Plan: Continue Eliquis and Multaq. The goal is heart rate control. Follow-up with Cardiology. (4) CKD (chronic kidney disease) stage 3, GFR 30-59 ml/min: Code(s): N18.30 - Chronic kidney disease, stage 3 unspecified Plan: Avoid NSAIDs. Keep blood pressure less than 130/80. (5) Asthma-COPD overlap syndrome: Code(s): J44.9 - Chronic obstructive pulmonary disease, unspecified Plan: Continue long-acting inhaler. Follow-up with pulmonology. (6) HTN (hypertension): Code(s): I10 - Essential (primary) hypertension Plan: Continue losartan. Blood pressure goal is equal or less than 130/80. Orders: Orders US thyroid Today E04.1 - Nontoxic single thyroid nodule Calcium, Ionized Today D35.1 - Benign neoplasm of parathyroid gland US pelvic and transvaginal Today D25.9 - Leiomyoma of uterus, unspecified Thyroid Stimulating Hormone Today E04.1 - Nontoxic single thyroid nodule Free T4 (Free Thyroxine) Today E04.1 - Nontoxic single thyroid nodule Parathyroid Hormone Intact Today D35.1 - Benign neoplasm of parathyroid gland Calcium Today D35.1 - Benign neoplasm of parathyroid gland Albumin Level Today D35.1 - Benign neoplasm of parathyroid gland Phosphorus Today D35.1 - Benign neoplasm of parathyroid gland Vitamin D 25-OH Total Today E55.9 - Vitamin D deficiency, unspecified Coding Level of Care Code Est Pt Level 4 (14533) Complex EM visit Add On G2211 Diagnoses Thyroid nodule E04.1 Mild recurrent major depression F33.0 Paroxysmal atrial fibrillation I48.0 CKD (chronic kidney disease) stage 3, GFR 30-59 ml/min N18.30 Asthma-COPD overlap syndrome J44.9 HTN (hypertension) I10 Time Spent (min) 25
[2024-03-06 13:49] VITALS: BP 136/70; BMI 33.3
== END 2024-03-06 14:23 | disposition home or self-care (01) ==
PROVIDERS: PCP Internal Medicine; Visit Provider Internal Medicine
DX: I12.9 Hypertensive chronic kidney disease with stage 1 through stage 4 chronic kidney disease, or unspecified chronic kidney disease (principal); N18.30 Chronic kidney disease, stage 3 unspecified; F33.0 Major depressive disorder, recurrent, mild; I48.0 Paroxysmal atrial fibrillation; J44.9 Chronic obstructive pulmonary disease, unspecified; E04.1 Nontoxic single thyroid nodule
CPT/HCPCS: 99214; G2211

== ENCOUNTER 2024-03-06 14:35 | Outpatient (REF) | payer OTHER, SELFPAY ==
[2024-03-06 14:45] LABS: MANUAL DIFF FLAG NO
[2024-03-06 15:42] LABS: Basophils Absolute Auto 0.1 X10*3/uL (0.0-0.2); Basophils Percent Auto 0.6 % (0-2); Eosinophils Percent Auto 0.1 % (0-4); Hemoglobin 10.8 g/dl (12.0-16.0); Imm Gran Abs Auto 0.04 X10*3/uL (0.00-0.03); Imm Gran Pct Auto 0.5 % (0.0-0.4); Lymphocytes Absolute Auto 1.2 X10*3/uL (1.2-4.9); Lymphocytes Percent Auto 13.4 % (20-40); Mean Corpuscular Hemoglobin 26.2 pg (27.0-33.0); Mean Corpuscular Volume 87.2 fL (80.0-98.0); Mean Platelet Volume 9.7 fL (9.4-12.3); Monocytes Absolute Auto 0.4 X10*3/uL (0.1-1.2); Monocytes Percent Auto 4.9 % (2-11); Neutrophils Percent Auto 80.5 % (45-73); Platelet Count 396 X10*3/uL (160-400); Red Blood Count 4.13 X10*6/uL (4.20-5.50); Red Cell Distribution Width 15.3 % (11.0-16.0); White Blood Count 8.7 X10*3/uL (4.8-10.8)
[2024-03-06 16:15] LABS: Parathyroid Hormone Intact 117.6 pg/mL (8.7-77.1)
[2024-03-06 16:17] LABS: Alanine Aminotransferase 10 U/L (0-31); Albumin Level 4.2 g/dL (3.5-5.0); Alkaline Phosphatase 72 U/L (39-117); Anion Gap 16 (12-20); Aspartate Amino Transferase 16 U/L (5-31); Bilirubin Total 0.2 mg/dL (0.0-1.0); Blood Urea Nitrogen 26 mg/dL (9-16); Calcium 9.6 mg/dL (8.4-10.2); Carbon Dioxide 25 mmol/L (22-29); Chloride 107 mmol/L (96-108); Cholesterol 302 mg/dL (<200); Estimated Glomerular Filt Rate 25; Glucose Fasting 108 mg/dL (60-99); HDL Cholesterol 57 mg/dL (>40); LDL Cholesterol Calculated 193 mg/dL (<100); Potassium 4.7 mmol/L (3.3-5.1); Sodium 143 mmol/L (135-145); Total Protein 7.4 g/dL (6.5-8.0); Triglycerides 262 mg/dL (<150)
[2024-03-06 16:34] LABS: Free T4 (Free Thyroxine) 0.93 ng/dL (0.71-1.85); Thyroid Stimulating Hormone 2.01 uIU/mL (0.32-4.0)
== END 2024-03-06 14:36 | disposition home or self-care (01) ==
LOC: HO.LAB 14:35
PROVIDERS: PCP Internal Medicine; Visit Provider Internal Medicine
DX: N18.30 Chronic kidney disease, stage 3 unspecified (principal); D35.1 Benign neoplasm of parathyroid gland; I48.0 Paroxysmal atrial fibrillation; E04.1 Nontoxic single thyroid nodule; E78.5 Hyperlipidemia, unspecified; E55.9 Vitamin D deficiency, unspecified; E03.9 Hypothyroidism, unspecified
CPT/HCPCS: 36415; 80053; 80061; 82306; 82330; 83970; 84100; 84439; 84443; 85025

== ENCOUNTER 2024-03-13 10:01 | Outpatient (AMB) | payer OTHER, SELFPAY ==
[2024-03-13 10:18] VITALS: BP 150/74; PULSE 78; O2SAT 97; BMI 33.1
--- NOTE | 2024-03-13 10:18 | HO.NEPHOV ---
Vital Signs 03/13/24 10:18 Height 5 ft 3 in Weight 187 lb BMI 33.1 BP 150/74 H Blood Pressure Location Rt brachial Position Sitting Pulse 78 Pulse Source Pulse Oximeter Pulse Oximetry (%) 97 Oxygen Delivery Method Room Air Intake Visit Reasons: CKD/ 2 MO FU/ Conf Landscape And Yardwork Laborer Required: Yes Landscape And Yardwork Laborer Name: Jarvis Hoskins Accompanied by: Self / Same As Patient Allergies sulfamethoxazole [From Bactrim] Allergy (Severe, Verified 03/13/24 10:21) Rash trimethoprim [From Bactrim] Allergy (Severe, Verified 03/13/24 10:21) Rash levofloxacin [From LEVAQUIN] Allergy (Intermediate, Verified 03/13/24 10:21) RASH SOB, DIZZYNESS tramadol Adverse Reaction (Severe, Verified 03/13/24 10:21) abdominal pain, vomiting atorvastatin [Lipitor] Adverse Reaction (Intermediate, Verified 03/13/24 10:21) nausea codeine [CODEINE] Adverse Reaction (Intermediate, Verified 03/13/24 10:21) NAUSEA & VOMITING morphine [MORPHINE] Adverse Reaction (Intermediate, Verified 03/13/24 10:21) NAUSEA & VOMITING pravastatin Adverse Reaction (Intermediate, Verified 03/13/24 10:21) myalgia rosuvastatin Adverse Reaction (Mild, Verified 03/13/24 10:21) myalgia Medication List - Last Reconciled 03/13/24 by Dillan Miller MD acetaminophen ER 650 mg PO Q8H PRN 30 days [adona pillow seat and cushion As directed] albuterol sulfate 90 mcg/actuation (Ventolin HFA) 2 puffs PO Q6H PRN albuterol sulfate 2.5 mg (3 mL) inhalation Q6H PRN 30 days apixaban (Eliquis) 5 mg PO BID aripiprazole 5 mg PO DAILY diltiazem HCl CD (Cardizem CD) 120 mg PO DAILY 90 days dronedarone (Multaq) 400 mg PO BID 90 days escitalopram oxalate 10 mg PO DAILY famotidine (Pepcid) 20 mg PO BID PRN fluocinolone acetonide oil 0.01% (DermOtic Oil) 5 drps otic (ear) left BID 7 days [hand held shower head As directed] hydrocortisone 1% (Anti-Itch (hydrocortisone)) 1 appl topical TID PRN incontinence pad, liner, disp Use 1 pad twice a day ipratropium-albuterol 0.5 mg-3 mg(2.5 mg base)/3 mL 3 mL inhalation QID PRN latex gloves Use 1 pair of gloves twice a day levothyroxine 25 mcg PO DAILY 90 days [lift recliner As directed] loratadine 10 mg PO DAILY 90 days losartan 25 mg PO DAILY 90 days mepolizumab (Nucala) 100 mg subcut Q4W nebulizers As directed omeprazole 20 mg PO DAILY PRN 30 days polyethylene glycol 3350 (Miralax) 17 grams PO DAILY PRN 30 days prednisone 5 mg PO DAILY [quilted wipes As directed] rosuvastatin 20 mg PO DAILY 90 days sennosides (senna) 8.6 mg PO BEDTIME PRN 30 days tamsulosin (Flomax) 0.4 mg PO DAILY 14 days triamcinolone acetonide 0.5% 1 appl topical BID umeclidinium 62.5 mcg/actuation (Incruse Ellipta) 1 inh inhalation DAILY underpads (Bed Underpads) As directed HPI Comments Details: 71 yo woman with history of Afib on Eliquis, DVTs, CKD, HTN, severe asthma/COPD on chronic prednisone and monthly infusions of Nucala , GERD, hypothyroidism, HLD She is here today for follow-up regarding CKD and hypertension. She seems compliant with her medications. Landscape And Yardwork Laborer service was used today. No specific complaints today. No headache nausea vomiting. No shortness of breath. No urinary symptoms. [facility] Medical History Chronic deep vein thrombosis (DVT) Right femoral vein DVT Osteoarthritis of knees, bilateral Mild recurrent major depression Polyarthralgia Osteopenia (~2007) Tubular adenoma of colon (~2009) Breast pain, left Postmenopausal Asthma-COPD overlap syndrome GERD (gastroesophageal reflux disease) HTN (hypertension) Paroxysmal atrial fibrillation (~01/2021) Dyslipidemia Hypothyroidism Pneumonia Eosinophilia Steroid dependent Chronic allergic rhinitis Asthma Surgical History History of right breast biopsy (~1998) History of colonoscopy History of D&C (~2002) History of tubal ligation History of shoulder surgery (~2006) History of nasal polypectomy (~2007) History of knee surgery Family History Father Medical history unknown Mother Alzheimer disease Daughter Lupus Other Arthritis Social History Household Members: None Housing: House Are you a primary dog daycare provider to a significant other at home: No Do you presently have visiting nurse or other home services: Yes Alcohol intake: never Patient Tobacco Use Status: Former Tobacco user Tobacco use type: Cigarette e-Cigarette/Vaping Use: Never Used Second Hand Smoke Exposure: No Advance Directives Date on File: 11/10/20 service: No Current occupational status: disabled Cognitive needs: Yes (cane) Hearing needs: No Vision needs: Yes (glasses) Physical Exam Vital Signs: Last Vital Signs Pulse 78 03/13/24 10:18 BP 150/74 H 03/13/24 10:18 Pulse Ox 97 03/13/24 10:18 Oxygen Delivery Method Room Air 03/13/24 10:18 BMI result Body Mass Index 33.1 Const General: comfortable Nutritional Appearance: well nourished Orientation/consciousness: patient oriented x3 HEENT Head: No normal to inspection Mouth: moist mucous membranes Neck Neck: Yes supple and Yes no JVD Resp Auscultation: clear to auscultation bilaterally and no rales Cardio Jugular venous distension: no JVD Palpation: no palpable S3 and no palpable S4 Heart sounds: no rubs GI Palpation (GI): Soft to palpation and nontender Percussion: No Fluid wave present General: Yes no CVA tenderness Back/Spine/Pelvis Back: no CVA tenderness Skin General skin exam: no rashes or lesions noted Neuro General: patient oriented x3 Extrem General: Yes no pedal edema and No clubbing Results Reviewed Nephrology Results: Hgb 10.8 g/dl (12.0-16.0) L 03/06/24 WBC 8.7 X10*3/uL (4.8-10.8) 03/06/24 Plt Count 396 X10*3/uL (160-400) 03/06/24 Sodium 143 mmol/L (135-145) 03/06/24 Potassium 4.7 mmol/L (3.3-5.1) 03/06/24 Chloride 107 mmol/L (96-108) 03/06/24 Carbon Dioxide 25 mmol/L (22-29) 03/06/24 BUN 26 mg/dL (9-16) H 03/06/24 Creatinine 1.96 mg/dL (0.5-1.4) H 03/06/24 Calcium 9.6 mg/dL (8.4-10.2) 03/06/24 Phosphorus 4.0 mg/dL (2.7-4.5) 03/06/24 PTH Intact 117.6 pg/mL (8.7-77.1) H 03/06/24 Urine Protein 30 (1+) mg/dL (Neg-Trace) H 02/08/24 Urine Creatinine 158.96 mg/dL 01/10/24 Assessment & Plan Assessment & Plan (1) CKD (chronic kidney disease) stage 3, GFR 30-59 ml/min: Code(s): N18.30 - Chronic kidney disease, stage 3 unspecified Category: Medical (2) HTN (hypertension): Code(s): I10 - Essential (primary) hypertension Category: Medical Plan . 73-year-old woman with a history of asthma and hypertension with CKD IIIb. The EGFR is around 25- 35 mL/minute. blood pressure is sub optimal. She has minimal proteinuria. Urinary sediments are benign. Sona probably has underlying hypertensive nephrosclerosis. Recommendations include Increased Diltiazem to 180 mg DAILY Stay on low-sodium diet. Increase p.o. fluid intake. Maintain blood pressure less than 130/80 mm Hg. Continue to avoid nephrotoxic agents including NSAIDs. Continue to monitor renal function closely along with urine protein excretion. No absolute indication for biopsy at this time. Orders: Orders Basic Metabolic Panel 3 Months N18.30 - Chronic kidney disease, stage 3 unspecified Total Protein Urine Random 3 Months N18.30 - Chronic kidney disease, stage 3 unspecified Creatinine Urine 3 Months N18.30 - Chronic kidney disease, stage 3 unspecified UA and rflx microscopic 3 Months N18.30 - Chronic kidney disease, stage 3 unspecified Medications: Changed From diltiazem HCl CD (Cardizem CD) 120 mg PO DAILY 90 days 90 caps 3RF To diltiazem HCl CD 180 mg PO DAILY 90 days 90 caps 3RF Coding Level of Care Code Est Pt Level 4 (25987) Diagnoses CKD (chronic kidney disease) stage 3, GFR 30-59 ml/min N18.30 HTN (hypertension) I10
== END 2024-03-13 10:38 | disposition home or self-care (01) ==
PROVIDERS: PCP Internal Medicine; Visit Provider Internal Medicine Hypertension Specialist
DX: N18.30 Chronic kidney disease, stage 3 unspecified (principal); I10 Essential (primary) hypertension
CPT/HCPCS: 99214

== ENCOUNTER → 2024-03-13 10:01 | Outpatient (BNVA) | payer OTHER, SELFPAY | PROVIDERS: PCP Internal Medicine; Visit Provider Internal Medicine Hypertension Specialist | DX: I12.9 Hypertensive chronic kidney disease with stage 1 through stage 4 chronic kidney disease, or unspecified chronic kidney disease (principal); N18.30 Chronic kidney disease, stage 3 unspecified | CPT/HCPCS: 99212 ==

== ENCOUNTER 2024-03-19 08:58 | Outpatient (AMB) | payer OTHER, SELFPAY ==
[2024-03-19 09:20] VITALS: PULSE 84; O2SAT 97; BMI 32.8
--- NOTE | 2024-03-19 09:20 | MHC.OFFVIS ---
Vital Signs 03/19/24 09:20 Height 5 ft 3 in Weight 185 lb 3.013 oz BMI 32.8 Pulse 84 Pulse Source Pulse Oximeter Pulse Oximetry (%) 97 Oxygen Delivery Method Room Air Intake Visit Reasons: Asthma Zigzag Stitcher Required: No Allergies sulfamethoxazole [From Bactrim] Allergy (Severe, Verified 03/19/24 09:22) Rash trimethoprim [From Bactrim] Allergy (Severe, Verified 03/19/24 09:22) Rash levofloxacin [From LEVAQUIN] Allergy (Intermediate, Verified 03/19/24 09:22) RASH SOB, DIZZYNESS tramadol Adverse Reaction (Severe, Verified 03/19/24 09:22) abdominal pain, vomiting atorvastatin [Lipitor] Adverse Reaction (Intermediate, Verified 03/19/24 09:22) nausea codeine [CODEINE] Adverse Reaction (Intermediate, Verified 03/19/24 09:22) NAUSEA & VOMITING morphine [MORPHINE] Adverse Reaction (Intermediate, Verified 03/19/24 09:22) NAUSEA & VOMITING pravastatin Adverse Reaction (Intermediate, Verified 03/19/24 09:22) myalgia rosuvastatin Adverse Reaction (Mild, Verified 03/19/24 09:22) myalgia HPI Comments Details: The patient is a 73-year-old woman with a known history of 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 She also has had chronic obstructive disease with chronic bronchitis requiring multiple hospitalizations and multiple prednisone tapers. Recently she was tapered off the prednisone and she has had worsening respiratory symptoms. Today she has significant wheezing. Also, she has questions about inhaler she does not feel like the working. Today she is found to have significant wheezing so therefore I will give her Solu-Medrol injection. She was approved for Nucala which I very happy about. She is going to call the infusion center and get that scheduled MIGUELINA in order to start therapy for significant eosinophilic asthma. 10/16/2021 the patient is a telephone visit. Overall the patient has been doing a lot better since starting biologic therapy. The Nucala injections have been affecting beneficial. She has been able to continue her low-dose prednisone dose. Has not required any increases for tapers. I am hoping to be able to decrease her maintenance prednisone down further. We have to monitor closely for any symptoms or signs consistent with adrenal insufficiency. She continues with the current respiratory regimen. She has not had any hospitalizations due to her asthma since starting biologic therapy. Overall the patient is doing very well. the patient was asking about her other allergy medicines. I did recommend that she leave all her other allergy therapies in place as she decreases the prednisone. Once we were able to decrease or stop the prednisone then we can work on the escalating some her other therapies if possible. 04/01/2023 the patient is here for pulmonary follow-up visit. She continues to be extremely well controlled with the Nucala biologic therapy. She has been very happy with the results specially since she was very reluctant in the 1st place. She has not required any hospitalizations or ER visits. She has not required any prednisone tapers. She does continue to wean herself very slowly off the prednisone due to the fact that she was on it for many years. She is down to about 5 mg daily. She does have hip pains and also some other musculoskeletal discomfort is that have been developing then bothering her. It may be due to the fact that she is coming off the prednisone all and maybe another element that is developing. She will be following up with her primary care doctor soon for this issues. In the meantime she is going to continue the Nucala injections. This will be monthly. Seems to be tolerating them well without any adverse effects. The patient will also continue with Wixela and Incruse daily as maintenance therapy. 09/30/2023 The patientis here for a sick visit. Had +sick contact over [place]. +RSV. as been having worsening cough and wheezing. Moderate inseverity. Associated with coughing and chest tightness.Had on prednisone taper with some improvement. She has been using her nebulizer twice a day. She continues on the Nucala every 4 weeks, which has been very effective for her. . 03/19/2024 the patient is here for a pulmonary follow-up visit. Her asthma has been very well controlled. She denies any recent exacerbations except back in September when she had RSV. The Nucala injections continue be affecting beneficial. She understands the Nucala is not going to help her for viral infections. Only for allergies. The patient has been on 5 mg of prednisone. When she is tried coming off it she gets very symptomatic with myalgias and fatigue. Likely some component of secondary adrenal insufficiency. Although she is having significant epigastric discomfort with significant reflux disease. She has been on 20 mg of omeprazole. I will go ahead increase that. She will have an endoscopy soon. She may indeed have peptic ulcer disease secondary to her chronic prednisone use. We did talk about ways decreasing the prednisone. I do believe that she should continue to work down to the lowest most effective dose to see if we can minimize her adverse effects. She is going to have her evaluation and she is going to follow-up in the fall and will start working on decreasing her prednisone. [facility] Medical History Chronic deep vein thrombosis (DVT) Right femoral vein DVT Osteoarthritis of knees, bilateral Mild recurrent major depression Polyarthralgia Osteopenia (~2007) Tubular adenoma of colon (~2009) Breast pain, left Postmenopausal Asthma-COPD overlap syndrome GERD (gastroesophageal reflux disease) HTN (hypertension) Paroxysmal atrial fibrillation (~01/2021) Dyslipidemia Hypothyroidism Pneumonia Eosinophilia Steroid dependent Chronic allergic rhinitis Asthma Surgical History History of right breast biopsy (~1998) History of colonoscopy History of D&C (~2002) History of tubal ligation History of shoulder surgery (~2006) History of nasal polypectomy (~2007) History of knee surgery Family History Father Medical history unknown Mother Alzheimer disease Daughter Lupus Other Arthritis Social History Household Members: None Housing: House Are you a primary health and social care teacher to a significant other at home: No Do you presently have visiting nurse or other home services: Yes Alcohol intake: never Patient Tobacco Use Status: Former Tobacco user Tobacco use type: Cigarette e-Cigarette/Vaping Use: Never Used Second Hand Smoke Exposure: No Advance Directives Date on File: 11/10/20 service: No Current occupational status: disabled Cognitive needs: Yes (cane) Hearing needs: No Vision needs: Yes (glasses) Review of Systems Const Reports weight gain Eyes Reports no additional complaints ENT Denies dry mouth Card Reports no additional complaints and Reports dyspnea on exertion Resp Denies change in phlegm color, Denies chest congestion, Reports cough, Reports dyspnea on exertion and Denies wheezing GI Reports as per HPI, Reports abdominal pain, Reports dyspepsia, Reports heartburn, Denies diarrhea and Denies vomiting Reports no additional complaints Musc Reports back pain and Reports arthralgias Skin/Breast Denies rash Aller/Immun Denies wheezing Physical Exam Vital Signs: Last Vital Signs Pulse 84 03/19/24 09:20 Pulse Ox 97 03/19/24 09:20 Oxygen Delivery Method Room Air 03/19/24 09:20 BMI result Body Mass Index 32.8 Const General: healthy appearing and comfortable Nutritional Appearance: obese Orientation/consciousness: oriented to person HEENT Head: Yes normocephalic Neck Neck: Yes supple Chest Chest palpation & inspection: normal inspection of the chest Resp Effort & Inspection: normal respiratory effort and able to speak in complete sentences Auscultation: diminished lung sounds Cardio Rate: regular rate Rhythm: regular rhythm Heart sounds: S1 normal heart sound present and S2 normal heart sound present GI Inspection: Yes normal to inspection Palpation (GI): nontender Skin General skin exam: no rashes or lesions noted Neuro General: oriented to person Extrem General: Yes no clubbing, cyanosis or edema Assessment & Plan Assessment & Plan (1) Asthma: Code(s): J45.909 - Unspecified asthma, uncomplicated Category: Medical Qualifiers: Asthma complication type: uncomplicated Asthma persistence: persistent Asthma severity: severe Qualified Code(s): J45.50 - Severe persistent asthma, uncomplicated (2) Steroid dependent: Code(s): F19.20 - Other psychoactive substance dependence, uncomplicated Category: Medical (3) Chronic allergic rhinitis: Code(s): J30.9 - Allergic rhinitis, unspecified Category: Medical (4) Paroxysmal atrial fibrillation: Onset Date: ~01/2021 Code(s): I48.0 - Paroxysmal atrial fibrillation Category: Medical (5) Epigastric pain: Code(s): R10.13 - Epigastric pain Category: Medical Plan Xopenex as needed continue Prednisone 5mg, we agreed to decrease slowly reflux diet increase Omeprazole 20mg->40mg daily Awaiting EGD mucinex DM Continue Nucala therapy monthly Claritin as needed Continue anticoagulation with Eliquis Follow-up in 3-4 months Medications: New omeprazole 40 mg PO DAILY 30 caps 6RF 30 days Discontinued omeprazole Discontinued Reason: Doctor's Order 20 mg PO DAILY 30 days PRN 30 caps 0RF heartburn Coding Level of Care Code Est Pt Level 4 (75450) Diagnoses Severe persistent asthma without complication J45.50 Asthma complication type: uncomplicated Asthma persistence: persistent Asthma severity: severe Steroid dependent F19.20 Chronic allergic rhinitis J30.9 Paroxysmal atrial fibrillation I48.0 Epigastric pain R10.13 Time Spent (min) 16
== END 2024-03-19 09:40 | disposition home or self-care (01) ==
PROVIDERS: PCP Internal Medicine; Visit Provider Hospitalist
DX: J45.50 Severe persistent asthma, uncomplicated (principal); F19.20 Other psychoactive substance dependence, uncomplicated; J30.9 Allergic rhinitis, unspecified; I48.0 Paroxysmal atrial fibrillation; R10.13 Epigastric pain
CPT/HCPCS: 99214

== ENCOUNTER → 2024-03-19 08:58 | Outpatient (BNVA) | payer OTHER, SELFPAY | PROVIDERS: PCP Internal Medicine; Visit Provider Hospitalist | DX: J45.50 Severe persistent asthma, uncomplicated (principal); J30.9 Allergic rhinitis, unspecified; I48.0 Paroxysmal atrial fibrillation; R10.13 Epigastric pain; F19.20 Other psychoactive substance dependence, uncomplicated | CPT/HCPCS: 99212 ==

== ENCOUNTER 2024-03-26 09:55 | Outpatient (REF) | payer OTHER, SELFPAY ==
--- NOTE | ~2024-03-26 | US_ITS ---
EXAMINATION: US THYROID CLINICAL INFORMATION: Nontoxic single thyroid nodule. COMPARISON: CT soft tissue neck with contrast 12/23/2023. TECHNIQUE: Linear transducer grayscale and color Doppler examination with attention to the region of the thyroid. FINDINGS: SIZE: Measurements of the thyroid lobes and nodules are given in sagittal, anteroposterior and transverse dimensions respectively. Right Thyroid Lobe: 3.1 x 1.4 x 1.5 cm, volume 3.4 mL. Parenchyma: The gland echotexture is homogeneous. Thyroid vascularity is normal. Left Thyroid Lobe: 3.7 x 1.1 x 0.9 cm, volume 1.9 mL. Parenchyma: The gland echotexture is homogeneous. Thyroid vascularity is normal. Isthmus: 0.4 cm in maximum AP dimension. No focal thyroid nodule is seen. NODES: No lymphadenopathy is seen in the tissue surrounding the thyroid gland. ADDITIONAL FINDINGS: Multiple colloid cysts are seen, not documented per TI-RADS protocol. 2.1 x 0.7 x 0.8 cm cystic structure with thin septation is seen posterior-inferior to the right lobe of the thyroid. This is seen on CT soft tissue neck 12/23/2023. This may represent a exophytic thyroid lesion versus a parathyroid adenoma. US/US thyroid IMPRESSION: 2.1 cm cystic structure with thin septation posterior-inferior to the right lobe of the thyroid. This is seen on CT soft tissue neck 12/23/2023. This may represent a exophytic thyroid lesion versus a parathyroid adenoma. This measures slightly smaller on the CT scan though this may be somewhat technical in origin. ACR TI-RADS RECOMMENDATION REFERENCE: Ultrasound-guided fine-needle aspiration, followup ultrasound, no further follow up. * TR1 (0 point) and TR2 (2 points): No FNA or follow up. * TR3 (3 points): FNA if more than or equal to 2.5 cm in maximum dimension, followup ultrasound in 1, 3 and 5 years if 1.5 to 2.4 cm in maximum dimension. * TR4 (4-6 points): FNA if more than or equal to 1.5 cm in maximum dimension, followup ultrasound in 1, 2, 3 and 5 years if 1 to 1.4 cm in maximum dimension. * TR5 (more than or equal to 7 points): FNA if more than or equal to 1 cm in maximum dimension, followup ultrasound every year for 5 years if 0.5 to 0.9 cm in maximum dimension. * TR3, TR4 or TR5 nodules that are below the size threshold for followup receive no follow up.
--- NOTE | ~2024-03-26 | US_ITS ---
EXAMINATION: US PELVIS CLINICAL INFORMATION: Uterine fibroid. COMPARISON: CT abdomen and pelvis 02/08/2024: Again noted is asymmetric enlargement of the left gonadal vein in continuity with tubular-shaped abnormality in the left adnexa most likely representing engorged parametrial varices and pelvic venous insufficiency with reflux disease; though the left ovary and fallopian tube are not well delineated, unable to rule out dilatation of the tube and ovarian lesion. Recommend further characterization with pelvic ultrasound. TECHNIQUE: Ultrasound of the pelvis is performed using both transabdominal and transvaginal transducers along with Doppler. Transvaginal imaging is performed due to inadequate visualization transabdominally. FINDINGS: Uterus: The uterus is anteverted and measures 8.2 x 3.2 x 4.7 cm. The double wall endometrial thickness is poorly seen but appears to measure approximately 3 mm . The uterus is smooth in contour and has normal myometrial echogenicity. Two uterine fibroids are seen, one in the right body measuring 2.0 cm with another on the left measuring 2.2 cm. Adnexa: Neither ovary could be seen. Prominent pelvic veins can be seen in the adnexal regions, left greater than right. US/US pelvic and transvaginal IMPRESSION: 1. Two uterine fibroids are present. 2. Neither ovary could be seen. 3. Prominent pelvic veins, left greater than right. On the prior CT scan, the left ovarian vein was markedly dilated and I suspect almost certainly refluxes. This pelvic vein insufficiency with pelvic varices can be a cause of chronic pelvic pain especially if worsened with prolonged upright position and relieved with the supine position. If the patient has such symptoms, she would benefit from consultation with interventional radiology.
== END 2024-03-26 09:56 | disposition home or self-care (01) ==
LOC: HO.US 09:55
PROVIDERS: PCP Internal Medicine; Visit Provider Internal Medicine
DX: E04.1 Nontoxic single thyroid nodule (principal); D25.9 Leiomyoma of uterus, unspecified
CPT/HCPCS: 76536; 76830; 76856

== ENCOUNTER 2024-04-19 07:56 | Outpatient (REF) | payer OTHER, SELFPAY ==
--- NOTE | ~2024-04-19 | FL_ITS ---
EXAMINATION: XR FLUOROSCOPY UPPER GI WITH AIR CLINICAL INFORMATION: Epigastric pain COMPARISON: None TECHNIQUE: Fluoroscopic air contrast upper GI examination was performed utilizing standard techniques with thin and thick barium and effervescent granules. Numerous spot images were obtained. FINDINGS: Dual and single contrast images of the esophagus demonstrate normal caliber, contour, and mucosal pattern. Mild cricopharyngeal achalasia is present. No evidence of stricture, mass, or ulcerations identified. Esophageal peristalsis is mildly disorganized. Small type I hiatal hernia is present. A small amount gastroesophageal reflux is seen in the distal esophagus. There is a wide open Schatzki's ring present. Dual contrast and single contrast images of the stomach demonstrated a normal contour. Evaluation of the gastric mucosa is limited due to underdistention of the stomach and poor coating of the barium. No obvious masses or ulcerations are seen. Contrast freely passed into the gastric antrum and duodenal bulb without delay. Single and air-contrast images of the duodenal bulb demonstrate no abnormality. The duodenal sweep has a normal appearance, course, and mucosal fold appearance. The imaged proximal jejunum has a normal fold pattern and caliber. FLUOROSCOPY TIME: 4 minutes 17 seconds Number of Spot Images: 6 Number of Cine: 14 DOSE AREA PRODUCT: [id number] uGy-m2 (microgray-meter squared) FL/FL upper GI series IMPRESSION: 1. Mild cricopharyngeal achalasia. 2. Mildly disorganized esophageal peristalsis. 3. Small type I hiatal hernia with mild gastroesophageal reflux. Wide open Schatzki's ring. 4. Limited evaluation of the gastric mucosa due to underdistention of the stomach from poor tolerance of the effervescent granules, as well as poor coating of the barium. No obvious masses or ulcerations are seen. This procedure was performed by Michael Phillips PA-C, and supervised by Dr. Fletcher
== END 2024-04-19 07:57 | disposition home or self-care (01) ==
LOC: HO.XRAY 07:56
PROVIDERS: PCP Internal Medicine; Visit Provider Internal Medicine
DX: R10.13 Epigastric pain (principal)
CPT/HCPCS: 74240

== ENCOUNTER → 2024-04-19 07:58 | Outpatient (BNV) | payer OTHER, SELFPAY | PROVIDERS: PCP Internal Medicine; Visit Provider Physician Assistant Surgical | DX: R10.13 Epigastric pain (principal) | CPT/HCPCS: 74246 ==

== ENCOUNTER 2024-04-26 10:16 | Outpatient (AMB) | payer OTHER, SELFPAY ==
[2024-04-26 10:19] VITALS: BP 156/84; PULSE 73; O2SAT 98; BMI 32.9
--- NOTE | 2024-04-26 10:19 | A.OFFPC_ITS ---
Vital Signs 04/26/24 10:19 Height 5 ft 3 in Weight 186 lb BMI 32.9 BP 156/84 H Blood Pressure Location Lt brachial Position Sitting Pulse 73 Pulse Source Pulse Oximeter Pulse Oximetry (%) 98 Oxygen Delivery Method Room Air Intake Visit Reasons: bp Intake Note: Patient here for a follow up BP Pediatric Clinical Dietician Required: No Accompanied by: Self / Same As Patient Allergies sulfamethoxazole [From Bactrim] Allergy (Severe, Verified 04/26/24 10:31) Rash trimethoprim [From Bactrim] Allergy (Severe, Verified 04/26/24 10:31) Rash levofloxacin [From LEVAQUIN] Allergy (Intermediate, Verified 04/26/24 10:31) RASH SOB, DIZZYNESS tramadol Adverse Reaction (Severe, Verified 04/26/24 10:31) abdominal pain, vomiting atorvastatin [Lipitor] Adverse Reaction (Intermediate, Verified 04/26/24 10:31) nausea codeine [CODEINE] Adverse Reaction (Intermediate, Verified 04/26/24 10:31) NAUSEA & VOMITING morphine [MORPHINE] Adverse Reaction (Intermediate, Verified 04/26/24 10:31) NAUSEA & VOMITING pravastatin Adverse Reaction (Intermediate, Verified 04/26/24 10:31) myalgia rosuvastatin Adverse Reaction (Mild, Verified 04/26/24 10:31) myalgia Medication List - Last Reconciled 04/26/24 by Angelique Valentine MD acetaminophen ER 650 mg PO Q8H PRN 30 days [adona pillow seat and cushion As directed] [air conditioner As directed] albuterol sulfate 90 mcg/actuation (Ventolin HFA) 2 puffs PO Q6H PRN albuterol sulfate 2.5 mg (3 mL) inhalation Q6H PRN 30 days apixaban (Eliquis) 5 mg PO BID aripiprazole 5 mg PO DAILY diltiazem HCl CD 180 mg PO DAILY 90 days dronedarone (Multaq) 400 mg PO BID 90 days escitalopram oxalate 10 mg PO DAILY famotidine (Pepcid) 20 mg PO BID PRN fluocinolone acetonide oil 0.01% (DermOtic Oil) 5 drps otic (ear) left BID 7 days [hand held shower head As directed] hydrocortisone 1% (Anti-Itch (hydrocortisone)) 1 appl topical TID PRN incontinence pad, liner, disp Use 1 pad twice a day ipratropium-albuterol 0.5 mg-3 mg(2.5 mg base)/3 mL 3 mL inhalation QID PRN latex gloves Use 1 pair of gloves twice a day levothyroxine 25 mcg PO DAILY 90 days [lift recliner As directed] loratadine 10 mg PO DAILY 90 days losartan 25 mg PO DAILY 90 days mepolizumab (Nucala) 100 mg subcut Q4W nebulizers As directed omeprazole 40 mg PO DAILY 30 days polyethylene glycol 3350 (Miralax) 17 grams PO DAILY PRN 30 days prednisone 5 mg PO DAILY [quilted wipes As directed] rosuvastatin 20 mg PO DAILY 90 days sennosides (senna) 8.6 mg PO BEDTIME PRN 30 days tamsulosin (Flomax) 0.4 mg PO DAILY 14 days triamcinolone acetonide 0.5% 1 appl topical BID umeclidinium 62.5 mcg/actuation (Incruse Ellipta) 1 inh inhalation DAILY underpads (Bed Underpads) As directed Tobacco use date assessed: 12/15/23 Fall risk assessment: No Falls in past year Last assessed Fall Risk: 04/26/24 Dental Screening Dental Screen Date: 12/15/23 HPI HPI Comments History of Present Illness Details This is a 73-year-old female with hypertension, atrial fibrillation, asthma-COPD overlap syndrome, mild recurrent major depression, chronic kidney disease stage 4, hyperparathyroidism and dyslipidemia that comes today for follow-up on her conditions. Blood pressure elevated today but she did took it today and it was 120/80. Blood pressure will be recheck in 3 weeks by nurse navigator. On chronic anticoagulation for atrial fibrillation which is follow by cardiology. Asthma-COPD overlap syndrome has been well controlled with Nucala and this is follow by pulmonology. Depression stable with Abilify. Her GFR is 25 which has worsened and she is aware she has to avoid NSAIDs. She does follow with Nephrology. Has anemia of chronic kidney disease that will be monitor. Has elevated PTH with low vitamin-D which will be supplemented. Hyperparathyroidism can be due to her kidneys or can be primary. Ultrasound of the thyroid showed something in the parathyroid and this is why I am ordering a parathyroid scan to rule out parathyroid adenoma. I will also be ordering a DEXA scan. She has elevated cholesterol and triglycerides and I will start her on fenofibrate. Denies any chest pain or shortness on breath. Complains of neck pain and also has a skin lesion in left ear and would like a cream for it. She also has achalasia and complains of not able to eat a large meal due to feeling like she is choking. She will see Gastroenterology for this matter soon. [facility] Medical History (Updated 04/26/24 @ 12:09 by Angelique Valentine MD) CKD (chronic kidney disease) stage 3, GFR 30-59 ml/min Chronic deep vein thrombosis (DVT) Right femoral vein DVT Osteoarthritis of knees, bilateral Mild recurrent major depression Polyarthralgia Osteopenia (~2007) Tubular adenoma of colon (~2009) Breast pain, left Postmenopausal Asthma-COPD overlap syndrome GERD (gastroesophageal reflux disease) HTN (hypertension) Paroxysmal atrial fibrillation (~01/2021) Dyslipidemia Hypothyroidism Pneumonia Eosinophilia Steroid dependent Chronic allergic rhinitis Asthma Surgical History History of right breast biopsy (~1998) History of colonoscopy History of D&C (~2002) History of tubal ligation History of shoulder surgery (~2006) History of nasal polypectomy (~2007) History of knee surgery Family History Father Medical history unknown Mother Alzheimer disease Daughter Lupus Other Arthritis Social History Household Members: None Housing: House Are you a primary care transitions manager to a significant other at home: No Do you presently have visiting nurse or other home services: Yes Alcohol intake: never Patient Tobacco Use Status: Former Tobacco user Tobacco use type: Cigarette e-Cigarette/Vaping Use: Never Used Second Hand Smoke Exposure: No Advance Directives Date on File: 11/10/20 service: No Current occupational status: disabled Cognitive needs: Yes (cane) Hearing needs: No Vision needs: Yes (glasses) Questionnaire Thrive Questionnaire Date Thrive assessed: 12/15/23 FABIOLA-7 AMB Questionnaire FABIOLA-7 Date FABIOLA - 7 assessed: 12/15/23 Source: Developed by Drs. Mk Zapata, Roseline Pantoja, Nura Bailon and colleagues, with an educational camila from [employer]. Review of Systems Const All systems reviewed & are unremarkable except as noted in HPI and below Card Denies chest pain at rest, Denies chest pain with activity, Denies edema, Denies irregular heart rhythm, Denies claudication, Denies dyspnea, Denies dyspnea on exertion, Denies orthopnea, Denies paroxysmal nocturnal dyspnea and Denies slow heart rate Resp Denies cough, Denies dyspnea and Denies dyspnea on exertion Physical exam (Primary Care) Vital Signs: Last Vital Signs Pulse 73 04/26/24 10:19 BP 156/84 H 04/26/24 10:19 Pulse Ox 98 04/26/24 10:19 Oxygen Delivery Method Room Air 04/26/24 10:19 BMI result Body Mass Index 32.9 Tobacco/Smoking Status: Tobacco use Status Tobacco use date assessed 12/15/23 04/26/24 10:24 Patient Tobacco Use Status Former Tobacco user 04/26/24 10:24 Tobacco use type Cigarette 04/26/24 10:24 e-Cigarette/Vaping Use Never Used 04/26/24 10:24 Thrive Assessment: Date of Thrive Assessment Date Thrive assessed 12/15/23 04/26/24 10:24 Resp Effort & Inspection: normal respiratory effort Auscultation: clear to auscultation bilaterally Cardio Jugular venous distension: no JVD Rate: regular rate Rhythm: regular rhythm Heart sounds: S1 normal heart sound present and S2 normal heart sound present Extrem General: Yes full ROM Assessment and Plan Assessment & Plan (1) Hyperparathyroidism: Code(s): E21.3 - Hyperparathyroidism, unspecified Plan: DEXA scan ordered. Repeat labs. Parathyroid scan pending. (2) Achalasia: Code(s): K22.0 - Achalasia of cardia Plan: Follow with Gastroenterology. (3) CKD (chronic kidney disease) stage 4, GFR 15-29 ml/min: Code(s): N18.4 - Chronic kidney disease, stage 4 (severe) Plan: Avoid NSAIDs. Keep blood pressure within goal. Follow-up with nephrology. (4) Paroxysmal atrial fibrillation: Onset Date: ~01/2021 Code(s): I48.0 - Paroxysmal atrial fibrillation Plan: Continue diltiazem and chronic anticoagulation. Follow-up with Cardiology. The goal is heart rate control. (5) Asthma-COPD overlap syndrome: Code(s): J44.9 - Chronic obstructive pulmonary disease, unspecified Plan: Continue Nucala and long-acting inhaler. Use rescue inhaler as needed. Follow- up with pulmonology. (6) Mild recurrent major depression: Code(s): F33.0 - Major depressive disorder, recurrent, mild Plan: Continue Abilify. (7) Essential hypertension: Code(s): I10 - Essential (primary) hypertension Plan: Continue losartan. Blood pressure goal is equal or less than 130/80. Recheck blood pressure with nurse navigator in 3 weeks. (8) Anemia in chronic kidney disease: Code(s): N18.9 - Chronic kidney disease, unspecified; D63.1 - Anemia in chronic kidney disease Qualifiers: Chronic kidney disease stage: stage 4 (severe) Qualified Code(s): N18.4 - Chronic kidney disease, stage 4 (severe); D63.1 - Anemia in chronic kidney disease Plan: Monitor hemoglobin. (9) Dyslipidemia: Code(s): E78.5 - Hyperlipidemia, unspecified Plan: Continue statins. Start fenofibrate. Orders: Orders XR DEXA axial skeleton Today N95.9 - Unspecified menopausal and perimenopausal disorder Complete Blood Count Auto Diff 4 Months D64.9 - Anemia, unspecified IRON PROFILE 4 Months D64.9 - Anemia, unspecified Lipid Panel 4 Months E78.5 - Hyperlipidemia, unspecified Thyroid Stimulating Hormone 4 Months E03.9 - Hypothyroidism, unspecified Comprehensive [place]. Panel Fast 4 Months N18.30 - Chronic kidney disease, stage 3 unspecified Parathyroid Hormone Intact 4 Months E21.3 - Hyperparathyroidism, unspecified Calcium, Ionized 4 Months E21.3 - Hyperparathyroidism, unspecified Vitamin D 25-OH Total 4 Months E55.9 - Vitamin D deficiency, unspecified Calcium, 24 Hr Ur 4 Months E21.3 - Hyperparathyroidism, unspecified Phosphorus 4 Months E21.3 - Hyperparathyroidism, unspecified Medications: New hydrocortisone 1% (Anti-Itch (hydrocortisone)) 1 appl topical BID 2 weeks PRN 28.4 grams 0RF skin irritation fenofibrate 54 mg PO BEDTIME 90 days 90 tabs 0RF cholecalciferol (vitamin D3) 25 mcg PO DAILY 90 days 90 caps 0RF Coding Level of Care Code Est Pt Level 4 (79719) Complex EM visit Add On G2211 Diagnoses Hyperparathyroidism E21.3 Achalasia K22.0 CKD (chronic kidney disease) stage 4, GFR 15-29 ml/min N18.4 Paroxysmal atrial fibrillation I48.0 Asthma-COPD overlap syndrome J44.9 Mild recurrent major depression F33.0 Essential hypertension I10 Anemia in stage 4 chronic kidney disease N18.4; D63.1 Chronic kidney disease stage: stage 4 (severe) Dyslipidemia E78.5 Time Spent (min) 24
== END 2024-04-26 10:47 | disposition home or self-care (01) ==
PROVIDERS: PCP Internal Medicine; Visit Provider Internal Medicine
DX: I12.9 Hypertensive chronic kidney disease with stage 1 through stage 4 chronic kidney disease, or unspecified chronic kidney disease (principal); E21.3 Hyperparathyroidism, unspecified; N18.4 Chronic kidney disease, stage 4 (severe); I48.0 Paroxysmal atrial fibrillation; J44.9 Chronic obstructive pulmonary disease, unspecified; F33.0 Major depressive disorder, recurrent, mild; K22.0 Achalasia of cardia; D63.1 Anemia in chronic kidney disease; E78.5 Hyperlipidemia, unspecified
CPT/HCPCS: 99214; G2211

== ENCOUNTER → 2024-05-21 08:57 | Outpatient (BNVA) | payer OTHER, SELFPAY | PROVIDERS: PCP Internal Medicine; Visit Provider Internal Medicine Cardiovascular Disease ==

== ENCOUNTER 2024-06-01 10:01 | Outpatient (REF) | payer OTHER, SELFPAY ==
--- NOTE | ~2024-06-01 | MM_ITS ---
EXAMINATION: BONE DENSITOMETRY CLINICAL INDICATION: Menopause. COMPARISON: Previous BD dated 11/26/2021 and baseline BD dated 11/24/2007. TECHNIQUE: Using a [employer] DXA System (software version: 13.1) manufactured by [employer], dual-energy x-ray absorptiometry was performed of the lumbar spine and left hip. The images are of good technical quality. Summary results are attached. FINDINGS: LEFT FEMUR, NECK: Current: BMD 0.766 g/cm2, Z-score -0.3, T-score -2.0, osteopenia. Prior: BMD 0.852 g/cm2. Baseline: BMD 0.920 g/cm2. LEFT FEMUR, TOTAL: Current: BMD 0.821 g/cm2, Z-score -0.1, T-score -1.5, osteopenia, 2.5% decrease from previous, 13.6% decrease from baseline (<5% change is not significant). Prior: BMD 0.842 g/cm2. Baseline: BMD 0.950 g/cm2. AP SPINE L1-L4: Current: BMD 0.879 g/cm2, Z-score -1.2, T-score -2.5, osteoporosis, 6.7% decrease from previous, 14.9% decrease from baseline (<5% change is not significant). Prior: BMD 0.912 g/cm2. Baseline: BMD 1.033 g/cm2. IDENTIFIED RISK FACTORS: Menopause, glucocorticoids (chronic). HISTORY OF FRACTURE: None listed. MEDICATIONS: Vitamin D. MM/XR DEXA axial skeleton IMPRESSION: 1. DIAGNOSIS: Osteoporosis based on the lowest T-score value of -2.5 in the lumbar spine applying World Health Organization criteria. 2. 10-YEAR FRACTURE RISK PREDICTION, FRAX: According to the guidelines, FRAX calculation should only be performed on patients in the osteopenia bone density category. Therefore, FRAX was not performed on this patient. 3. Treatment Recommendations: NOF guidelines recommend consideration for treatment in postmenopausal women and men age 50 and older presenting with the following: -A hip or vertebral (clinical or morphometric) fracture. -T-score less than or equal to -2.5 at the femoral neck or spine after appropriate evaluation to exclude secondary causes. -Low bone mass at the hip or spine and a 10-year fracture probability by FRAX of greater than or equal to 3% for hip fracture or greater than or equal to 20% for major osteoporotic fracture based on the [place] adapted WHO algorithm. 4. Other Recommendations: All treatment decisions require clinical judgment and consideration of individual patient factors, including patient preferences, comorbidities, previous drug use, risk factors not captured in the FRAX model (e.g. frailty, falls, vitamin D deficiency, increased bone turnover, interval significant decline in bone density) and possible under or overestimation of fracture risk by FRAX. Additional medical evaluation for secondary cause of low bone mineral density may be appropriate. FUTURE SCAN RECOMMENDATION: People with diagnosed cases of osteoporosis or at high risk for fracture should have regular bone mineral density tests. For patients eligible for Medicare, routine testing is allowed once every 2 years. The testing frequency can be increased to one year for patients who have rapidly progressing disease, those who are receiving or discontinuing medical therapy to restore bone mass, or have additional risk factors. Electronically signed by: Pieter Olson MD 06/05/2024 11:18 AM EDT
== END 2024-06-01 10:02 | disposition home or self-care (01) ==
LOC: HO.MAMMO 10:01
PROVIDERS: PCP Internal Medicine; Visit Provider Internal Medicine
DX: Z13.820 Encounter for screening for osteoporosis (principal); Z78.0 Asymptomatic menopausal state
CPT/HCPCS: 77080

== ENCOUNTER 2024-06-18 10:29 | Outpatient (REF) | payer OTHER, SELFPAY ==
[2024-06-18 11:53] LABS: Albumin Level 4.2 g/dL (3.5-5.0); Anion Gap 12 (12-20); Blood Urea Nitrogen 29 mg/dL (9-16); Calcium 9.7 mg/dL (8.4-10.2); Carbon Dioxide 27 mmol/L (22-29); Chloride 108 mmol/L (96-108); Estimated Glomerular Filt Rate 21; Glucose Random 88 mg/dL (60-115); Potassium 4.4 mmol/L (3.3-5.1); Sodium 143 mmol/L (135-145); Thyroid Stimulating Hormone 3.19 uIU/mL (0.32-4.0)
[2024-06-18 12:46] LABS: Appearance Urine Clear; Color Urine Dark Yellow; Glucose Urine UA Negative (Negative); Leukocyte Esterase Urine Trace (Negative); Nitrite Urine Negative (Negative); PH 5.5 (5.0-9.0); Specific Gravity - Urine 1.025 (1.005-1.025); UMIC TRIGGER UA YES; Urine Blood Negative (Negative); Urine Ketones Trace mg/dL (Negative); Urine Protein 100 (2+) mg/dL (Neg-Trace)
[2024-06-18 13:01] LABS: Bacteria Urine None Seen (None Seen); Granular Casts Urine Present; Hyaline Casts Urine 0-2 /LPF (0-2); RBC Urine 0-2 /HPF (0-2); WBC Urine 0-5 /HPF (0-5)
[2024-06-18 13:26] LABS: Creatinine Urine 185.62 mg/dL; Total Protein Urine Random 105 mg/dL (<12)
== END 2024-06-18 10:30 | disposition home or self-care (01) ==
LOC: HO.LAB 10:29
PROVIDERS: PCP Internal Medicine; Visit Provider Internal Medicine Hypertension Specialist
DX: D35.1 Benign neoplasm of parathyroid gland (principal); E03.9 Hypothyroidism, unspecified; N18.30 Chronic kidney disease, stage 3 unspecified
CPT/HCPCS: 36415; 80048; 81001; 82040; 82570; 84156; 84443

== ENCOUNTER → 2024-06-22 09:58 | Outpatient (BNVA) | payer OTHER, SELFPAY | PROVIDERS: PCP Internal Medicine; Visit Provider Internal Medicine Hypertension Specialist | DX: I12.9 Hypertensive chronic kidney disease with stage 1 through stage 4 chronic kidney disease, or unspecified chronic kidney disease (principal); N18.4 Chronic kidney disease, stage 4 (severe) | CPT/HCPCS: 99212 ==

== ENCOUNTER 2024-06-22 10:01 | Outpatient (AMB) | payer OTHER, SELFPAY ==
--- NOTE | 2024-06-22 10:00 | HO.NEPHOV ---
Vital Signs 06/22/24 10:03 Height 5 ft 3 in Weight 184 lb BMI 32.6 BP 136/72 Blood Pressure Location Rt brachial Position Sitting Pulse 75 Pulse Source Pulse Oximeter Pulse Oximetry (%) 99 Oxygen Delivery Method Room Air Intake Visit Reasons: CKD/ Conf Career Placement Services Counselor Required: Yes Career Placement Services Counselor Services: Career Placement Services Counselor Offered & Declined (Refusal Form scanned into patient chart.) Accompanied by: Self / Same As Patient Allergies sulfamethoxazole [From Bactrim] Allergy (Severe, Verified 06/22/24 10:02) Rash trimethoprim [From Bactrim] Allergy (Severe, Verified 06/22/24 10:02) Rash levofloxacin [From LEVAQUIN] Allergy (Intermediate, Verified 06/22/24 10:02) RASH SOB, DIZZYNESS tramadol Adverse Reaction (Severe, Verified 06/22/24 10:02) abdominal pain, vomiting atorvastatin [Lipitor] Adverse Reaction (Intermediate, Verified 06/22/24 10:02) nausea codeine [CODEINE] Adverse Reaction (Intermediate, Verified 06/22/24 10:02) NAUSEA & VOMITING morphine [MORPHINE] Adverse Reaction (Intermediate, Verified 06/22/24 10:02) NAUSEA & VOMITING pravastatin Adverse Reaction (Intermediate, Verified 06/22/24 10:02) myalgia rosuvastatin Adverse Reaction (Mild, Verified 06/22/24 10:02) myalgia Medication List - Last Reconciled 06/22/24 by Dillan Miller MD acetaminophen ER 650 mg PO Q8H PRN 30 days [adona pillow seat and cushion As directed] [air conditioner As directed] albuterol sulfate 90 mcg/actuation (Ventolin HFA) 2 puffs PO Q6H PRN albuterol sulfate 2.5 mg (3 mL) inhalation Q6H PRN 30 days apixaban (Eliquis) 5 mg PO BID aripiprazole 5 mg PO DAILY cholecalciferol (vitamin D3) 25 mcg PO DAILY 90 days diltiazem HCl CD 180 mg PO DAILY 90 days dronedarone (Multaq) 400 mg PO BID 90 days escitalopram oxalate 10 mg PO DAILY famotidine (Pepcid) 20 mg PO BID PRN fenofibrate 54 mg PO BEDTIME 90 days fluocinolone acetonide oil 0.01% (DermOtic Oil) 5 drps otic (ear) left BID 7 days [hand held shower head As directed] hydrocortisone 1% (Anti-Itch (hydrocortisone)) 1 appl topical TID PRN hydrocortisone 1% (Anti-Itch (hydrocortisone)) 1 appl topical BID PRN 2 weeks incontinence pad, liner, disp Use 1 pad twice a day ipratropium-albuterol 0.5 mg-3 mg(2.5 mg base)/3 mL 3 mL inhalation QID PRN latex gloves Use 1 pair of gloves twice a day levothyroxine 25 mcg PO DAILY 90 days [lift recliner As directed] loratadine 10 mg PO DAILY 90 days losartan 25 mg PO DAILY 90 days mepolizumab (Nucala) 100 mg subcut Q4W nebulizers As directed [non disposable bed pads As directed] omeprazole 40 mg PO DAILY 30 days polyethylene glycol 3350 (Miralax) 17 grams PO DAILY PRN 30 days prednisone 5 mg PO DAILY [quilted wipes As directed] rosuvastatin 20 mg PO DAILY 90 days sennosides (senna) 8.6 mg PO BEDTIME PRN 30 days tamsulosin (Flomax) 0.4 mg PO DAILY 14 days triamcinolone acetonide 0.5% 1 appl topical BID umeclidinium 62.5 mcg/actuation (Incruse Ellipta) 1 inh inhalation DAILY underpads (Bed Underpads) As directed HPI Comments Details: 71 yo woman with history of Afib on Eliquis, DVTs, CKD, HTN, severe asthma/COPD on chronic prednisone and monthly infusions of Nucala , GERD, hypothyroidism, HLD She is here today for follow-up regarding CKD and hypertension. She seems compliant with her medications. Career Placement Services Counselor service was used today. No specific complaints today. No headache nausea vomiting. No shortness of breath. No urinary symptoms. [facility] Medical History (Updated 06/11/24 @ 22:02 by Angelique Valentine MD) CKD (chronic kidney disease) stage 3, GFR 30-59 ml/min Chronic deep vein thrombosis (DVT) Right femoral vein DVT Osteoarthritis of knees, bilateral Mild recurrent major depression Polyarthralgia Osteopenia (~2007) Tubular adenoma of colon (~2009) Breast pain, left Postmenopausal Asthma-COPD overlap syndrome GERD (gastroesophageal reflux disease) HTN (hypertension) Paroxysmal atrial fibrillation (~01/2021) Dyslipidemia Hypothyroidism Pneumonia Eosinophilia Steroid dependent Chronic allergic rhinitis Asthma Surgical History History of right breast biopsy (~1998) History of colonoscopy History of D&C (~2002) History of tubal ligation History of shoulder surgery (~2006) History of nasal polypectomy (~2007) History of knee surgery Family History Father Medical history unknown Mother Alzheimer disease Daughter Lupus Other Arthritis Social History Household Members: None Housing: House Are you a primary animal caregiver to a significant other at home: No Do you presently have visiting nurse or other home services: Yes Alcohol intake: never Patient Tobacco Use Status: Former Tobacco user Tobacco use type: Cigarette e-Cigarette/Vaping Use: Never Used Second Hand Smoke Exposure: No Advance Directives Date on File: 11/10/20 service: No Current occupational status: disabled Cognitive needs: Yes (cane) Hearing needs: No Vision needs: Yes (glasses) Physical Exam Vital Signs: Last Vital Signs Pulse 75 06/22/24 10:03 BP 136/72 06/22/24 10:03 Pulse Ox 99 06/22/24 10:03 Oxygen Delivery Method Room Air 06/22/24 10:03 BMI result Body Mass Index 32.6 Results Reviewed Nephrology Results: Sodium 143 mmol/L (135-145) 06/18/24 Potassium 4.4 mmol/L (3.3-5.1) 06/18/24 Chloride 108 mmol/L (96-108) 06/18/24 Carbon Dioxide 27 mmol/L (22-29) 06/18/24 BUN 29 mg/dL (9-16) H 06/18/24 Creatinine 2.26 mg/dL (0.5-1.4) H 06/18/24 Calcium 9.7 mg/dL (8.4-10.2) 06/18/24 Urine Protein 100 (2+) mg/dL (Neg-Trace) H 06/18/24 Urine Creatinine 185.62 mg/dL 06/18/24 Assessment & Plan Assessment & Plan (1) CKD (chronic kidney disease) stage 3, GFR 30-59 ml/min: Code(s): N18.30 - Chronic kidney disease, stage 3 unspecified Category: Medical (2) HTN (hypertension): Code(s): I10 - Essential (primary) hypertension Category: Medical (3) CKD (chronic kidney disease) stage 4, GFR 15-29 ml/min: Code(s): N18.4 - Chronic kidney disease, stage 4 (severe) Category: Medical Plan . 73-year-old woman with a history of asthma and hypertension with CKD IIIb. The EGFR is around 25- 35 mL/minute. blood pressure is She has minimal proteinuria. Urinary sediments are benign. Sona probably has underlying hypertensive nephrosclerosis. Recommendations include Stay on low-sodium diet. Increase p.o. fluid intake. Maintain blood pressure less than 130/80 mm Hg. Continue to avoid nephrotoxic agents including NSAIDs. Continue to monitor renal function closely along with urine protein excretion. No absolute indication for biopsy at this time. Recheck renal panel due to the mild bump in creatinine serum complements reordered Orders: Orders CK, Total+Isoenzymes, Serum 2 Weeks N18.4 - Chronic kidney disease, stage 4 (severe) Creatinine Urine 2 Weeks N18.4 - Chronic kidney disease, stage 4 (severe) UA and rflx microscopic 2 Weeks N18.4 - Chronic kidney disease, stage 4 (severe) Basic Metabolic Panel 2 Weeks N18.4 - Chronic kidney disease, stage 4 (severe) Total Protein Urine Random 2 Weeks N18.4 - Chronic kidney disease, stage 4 (severe) Protein Electrophoresis, Serum 2 Weeks N18.4 - Chronic kidney disease, stage 4 (severe) Complement C4 2 Weeks N18.4 - Chronic kidney disease, stage 4 (severe) Complement C3 2 Weeks N18.4 - Chronic kidney disease, stage 4 (severe) Coding Level of Care Code Est Pt Level 4 (08735) Diagnoses CKD (chronic kidney disease) stage 3, GFR 30-59 ml/min N18.30 HTN (hypertension) I10 CKD (chronic kidney disease) stage 4, GFR 15-29 ml/min N18.4
[2024-06-22 10:03] VITALS: BP 136/72; PULSE 75; O2SAT 99; BMI 32.6
== END 2024-06-22 10:22 | disposition home or self-care (01) ==
PROVIDERS: PCP Internal Medicine; Visit Provider Internal Medicine Hypertension Specialist
DX: I12.9 Hypertensive chronic kidney disease with stage 1 through stage 4 chronic kidney disease, or unspecified chronic kidney disease (principal); N18.4 Chronic kidney disease, stage 4 (severe)
CPT/HCPCS: 99214

== ENCOUNTER 2024-07-17 09:28 | Outpatient (REF) | payer OTHER, SELFPAY ==
[2024-07-17 10:49] LABS: Appearance Urine Clear; Color Urine Yellow; Glucose Urine UA Negative (Negative); Leukocyte Esterase Urine Negative (Negative); Nitrite Urine Negative (Negative); PH 5.5 (5.0-9.0); UMIC TRIGGER UA YES; Urine Blood Negative (Negative); Urine Ketones Trace mg/dL (Negative); Urine Protein 30 (1+) mg/dL (Neg-Trace)
[2024-07-17 10:56] LABS: Bacteria Urine None Seen (None Seen); Hyaline Casts Urine 0-2 /LPF (0-2); RBC Urine 0-2 /HPF (0-2); Squamous Epithelial Cell Urine 0-2 /HPF (0-2); WBC Urine 0-5 /HPF (0-5)
[2024-07-17 11:27] LABS: Anion Gap 13 (12-20); Blood Urea Nitrogen 24 mg/dL (9-16); Calcium 9.7 mg/dL (8.4-10.2); Carbon Dioxide 26 mmol/L (22-29); Chloride 109 mmol/L (96-108); Estimated Glomerular Filt Rate 25; Glucose Random 81 mg/dL (60-115); Potassium 4.1 mmol/L (3.3-5.1); Sodium 144 mmol/L (135-145)
[2024-07-17 11:30] LABS: Creatinine Urine 177.09 mg/dL; Total Protein Urine Random 79 mg/dL (<12)
[2024-07-18 10:59] LABS: Complement C3 145 mg/dL (83-193)
[2024-07-18 13:19] LABS: Prot Elec - Albumin 4.1 g/dL (3.8-4.8); Prot Elec - Alpha1 0.4 g/dL (0.2-0.3); Prot Elec - Alpha2 0.8 g/dL (0.5-0.9); Prot Elec - Beta 1 0.4 g/dL (0.4-0.6); Prot Elec - Beta 2 0.4 g/dL (0.2-0.5); Prot Elec - Gamma 0.9 g/dL (0.8-1.7)
[2024-07-20 12:04] LABS: CK-BB None Detected (None Detected); CK-MB 0 % (<5); CK-MM 100 % (95-100); Creatine Kinase,Total,Serum 58 U/L (29-143)
== END 2024-07-17 09:29 | disposition home or self-care (01) ==
LOC: HO.LAB 09:28
PROVIDERS: PCP Internal Medicine; Visit Provider Internal Medicine Hypertension Specialist
DX: N18.30 Chronic kidney disease, stage 3 unspecified (principal); N18.4 Chronic kidney disease, stage 4 (severe)
CPT/HCPCS: 36415; 80048; 81001; 82552; 82570; 84156; 84165; 86160

== ENCOUNTER 2024-07-27 10:56 | Outpatient (AMB) | payer OTHER, SELFPAY ==
--- NOTE | 2024-07-27 10:58 | HO.NEPHOV ---
Vital Signs 07/27/24 11:01 Height 5 ft 3 in Weight 185 lb BMI 32.8 BP 154/76 H Blood Pressure Location Rt brachial Position Sitting Pulse 77 Pulse Source Pulse Oximeter Pulse Oximetry (%) 98 Oxygen Delivery Method Room Air Intake Visit Reasons: CKD/ Conf Clinical Informatics Manager Required: No Clinical Informatics Manager Services: Clinical Informatics Manager Offered & Declined Accompanied by: Self / Same As Patient Allergies sulfamethoxazole [From Bactrim] Allergy (Severe, Verified 07/27/24 10:59) Rash trimethoprim [From Bactrim] Allergy (Severe, Verified 07/27/24 10:59) Rash levofloxacin [From LEVAQUIN] Allergy (Intermediate, Verified 07/27/24 10:59) RASH SOB, DIZZYNESS tramadol Adverse Reaction (Severe, Verified 07/27/24 10:59) abdominal pain, vomiting atorvastatin [Lipitor] Adverse Reaction (Intermediate, Verified 07/27/24 10:59) nausea codeine [CODEINE] Adverse Reaction (Intermediate, Verified 07/27/24 10:59) NAUSEA & VOMITING morphine [MORPHINE] Adverse Reaction (Intermediate, Verified 07/27/24 10:59) NAUSEA & VOMITING pravastatin Adverse Reaction (Intermediate, Verified 07/27/24 10:59) myalgia rosuvastatin Adverse Reaction (Mild, Verified 07/27/24 10:59) myalgia Medication List - Last Reconciled 07/27/24 by Dillan Miller MD acetaminophen ER 650 mg PO Q8H PRN 30 days [adona pillow seat and cushion As directed] [air conditioner As directed] albuterol sulfate 90 mcg/actuation (Ventolin HFA) 2 puffs PO Q6H PRN albuterol sulfate 2.5 mg (3 mL) inhalation Q6H PRN 30 days apixaban (Eliquis) 5 mg PO BID aripiprazole 5 mg PO DAILY cholecalciferol (vitamin D3) 25 mcg PO DAILY 90 days diltiazem HCl CD 120 mg PO DAILY dronedarone (Multaq) 400 mg PO BID 90 days escitalopram oxalate 10 mg PO DAILY famotidine (Pepcid) 20 mg PO BID PRN fenofibrate 54 mg PO BEDTIME 90 days fluocinolone acetonide oil 0.01% (DermOtic Oil) 5 drps otic (ear) left BID 7 days [hand held shower head As directed] hydrocortisone 1% (Anti-Itch (hydrocortisone)) 1 appl topical TID PRN hydrocortisone 1% (Anti-Itch (hydrocortisone)) 1 appl topical BID PRN 2 weeks incontinence pad, liner, disp Use 1 pad twice a day ipratropium-albuterol 0.5 mg-3 mg(2.5 mg base)/3 mL 3 mL inhalation QID PRN latex gloves Use 1 pair of gloves twice a day levothyroxine 25 mcg PO DAILY 90 days [lift recliner As directed] loratadine 10 mg PO DAILY 90 days losartan 25 mg PO DAILY 90 days mepolizumab (Nucala) 100 mg subcut Q4W nebulizers As directed [non disposable bed pads As directed] omeprazole 40 mg PO DAILY 30 days polyethylene glycol 3350 (Miralax) 17 grams PO DAILY PRN 30 days prednisone 5 mg PO DAILY [quilted wipes As directed] rosuvastatin 20 mg PO DAILY 90 days sennosides (senna) 8.6 mg PO BEDTIME PRN 30 days tamsulosin (Flomax) 0.4 mg PO DAILY 14 days triamcinolone acetonide 0.5% 1 appl topical BID umeclidinium 62.5 mcg/actuation (Incruse Ellipta) 1 inh inhalation DAILY 90 days underpads (Bed Underpads) As directed HPI Comments Details: 71 yo woman with history of Afib on Eliquis, DVTs, CKD, HTN, severe asthma/COPD on chronic prednisone and monthly infusions of Nucala , GERD, hypothyroidism, HLD She is here today for follow-up regarding CKD and hypertension. She seems compliant with her medications. Clinical Informatics Manager service was used today. No specific complaints today. No headache nausea vomiting. No shortness of breath. No urinary symptoms. [facility] Medical History (Updated 06/11/24 @ 22:02 by Angelique Valentine MD) CKD (chronic kidney disease) stage 3, GFR 30-59 ml/min Chronic deep vein thrombosis (DVT) Right femoral vein DVT Osteoarthritis of knees, bilateral Mild recurrent major depression Polyarthralgia Osteopenia (~2007) Tubular adenoma of colon (~2009) Breast pain, left Postmenopausal Asthma-COPD overlap syndrome GERD (gastroesophageal reflux disease) HTN (hypertension) Paroxysmal atrial fibrillation (~01/2021) Dyslipidemia Hypothyroidism Pneumonia Eosinophilia Steroid dependent Chronic allergic rhinitis Asthma Surgical History History of right breast biopsy (~1998) History of colonoscopy History of D&C (~2002) History of tubal ligation History of shoulder surgery (~2006) History of nasal polypectomy (~2007) History of knee surgery Family History Father Medical history unknown Mother Alzheimer disease Daughter Lupus Other Arthritis Social History Household Members: None Housing: House Are you a primary manager progressive care to a significant other at home: No Do you presently have visiting nurse or other home services: Yes Alcohol intake: never Patient Tobacco Use Status: Former Tobacco user Tobacco use type: Cigarette e-Cigarette/Vaping Use: Never Used Second Hand Smoke Exposure: No Advance Directives Date on File: 11/10/20 service: No Current occupational status: disabled Cognitive needs: Yes (cane) Hearing needs: No Vision needs: Yes (glasses) Physical Exam Vital Signs: Last Vital Signs Pulse 77 07/27/24 11:01 BP 154/76 H 07/27/24 11:01 Pulse Ox 98 07/27/24 11:01 Oxygen Delivery Method Room Air 07/27/24 11:01 BMI result Body Mass Index 32.8 Const General: comfortable; No acute distress Orientation/consciousness: patient oriented x3 Eyes General: appearance normal, both eyes and all related structures Visual Macedo: normal visual macedo by confrontation Neck Neck: Yes supple and Yes no JVD Resp Effort & Inspection: normal respiratory effort and respiratory effort not decreased Auscultation: rhonchi Cardio Palpation: no palpable S3 and no palpable S4 Heart sounds: no rubs GI Inspection: Yes normal to inspection Palpation (GI): Soft to palpation Percussion: Yes normal to percussion Auscultation: normal bowel sounds General: Yes no CVA tenderness Back/Spine/Pelvis Back: no CVA tenderness Skin General skin exam: no petechiae and no purpura Neuro General: patient oriented x3 and no focal motor deficits Extrem General: No clubbing and No edema Results Reviewed Nephrology Results: Sodium 144 mmol/L (135-145) 07/17/24 Potassium 4.1 mmol/L (3.3-5.1) 07/17/24 Chloride 109 mmol/L (96-108) H 07/17/24 Carbon Dioxide 26 mmol/L (22-29) 07/17/24 BUN 24 mg/dL (9-16) H 07/17/24 Creatinine 1.93 mg/dL (0.5-1.4) H 07/17/24 Calcium 9.7 mg/dL (8.4-10.2) 07/17/24 Urine Protein 30 (1+) mg/dL (Neg-Trace) H 07/17/24 Urine Creatinine 177.09 mg/dL 07/17/24 Assessment & Plan Assessment & Plan (1) CKD (chronic kidney disease) stage 3, GFR 30-59 ml/min: Code(s): N18.30 - Chronic kidney disease, stage 3 unspecified Category: Medical (2) HTN (hypertension): Code(s): I10 - Essential (primary) hypertension Category: Medical (3) CKD (chronic kidney disease) stage 4, GFR 15-29 ml/min: Code(s): N18.4 - Chronic kidney disease, stage 4 (severe) Category: Medical (4) Anemia in chronic kidney disease: Code(s): N18.9 - Chronic kidney disease, unspecified; D63.1 - Anemia in chronic kidney disease Category: Medical Qualifiers: Chronic kidney disease stage: stage 4 (severe) Qualified Code(s): N18.4 - Chronic kidney disease, stage 4 (severe); D63.1 - Anemia in chronic kidney disease Plan . 73-year-old woman with a history of asthma and hypertension with CKD IIIb. The EGFR is around 25- 35 mL/minute. blood pressure is better controlled but sub optimal She has minimal proteinuria. Urinary sediments are benign. Sona probably has underlying hypertensive nephrosclerosis. Recommendations include Stay on low-sodium diet. Increase p.o. fluid intake. Maintain blood pressure less than 130/80 mm Hg. Can increase Cardizem Continue to avoid nephrotoxic agents including NSAIDs. Continue to monitor renal function closely along with urine protein excretion.- which has improved Serologies negative No absolute indication for biopsy at this time. Orders: Orders Basic Metabolic Panel 3 Months D63.1 - Anemia in chronic kidney disease, N18.4 - Chronic kidney disease, stage 4 (severe) Complete Blood Count Auto Diff 3 Months D63.1 - Anemia in chronic kidney disease, N18.4 - Chronic kidney disease, stage 4 (severe) Coding Level of Care Code Est Pt Level 4 (39069) Diagnoses CKD (chronic kidney disease) stage 3, GFR 30-59 ml/min N18.30 HTN (hypertension) I10 CKD (chronic kidney disease) stage 4, GFR 15-29 ml/min N18.4 Anemia in stage 4 chronic kidney disease N18.4; D63.1 Chronic kidney disease stage: stage 4 (severe)
[2024-07-27 11:01] VITALS: BP 154/76; PULSE 77; O2SAT 98; BMI 32.8
== END 2024-07-27 11:28 | disposition home or self-care (01) ==
PROVIDERS: PCP Internal Medicine; Visit Provider Internal Medicine Hypertension Specialist
DX: I12.9 Hypertensive chronic kidney disease with stage 1 through stage 4 chronic kidney disease, or unspecified chronic kidney disease (principal); N18.4 Chronic kidney disease, stage 4 (severe); D63.1 Anemia in chronic kidney disease
CPT/HCPCS: 99214

== ENCOUNTER → 2024-07-27 10:56 | Outpatient (BNVA) | payer OTHER, SELFPAY | PROVIDERS: PCP Internal Medicine; Visit Provider Internal Medicine Hypertension Specialist | DX: I12.9 Hypertensive chronic kidney disease with stage 1 through stage 4 chronic kidney disease, or unspecified chronic kidney disease (principal); N18.4 Chronic kidney disease, stage 4 (severe); D63.1 Anemia in chronic kidney disease | CPT/HCPCS: 99212 ==

== ENCOUNTER 2024-08-01 10:56 | Outpatient (AMB) | payer OTHER, SELFPAY ==
[2024-08-01 11:01] VITALS: BP 138/70; PULSE 88; O2SAT 99
--- NOTE | 2024-08-01 11:01 | MHC.OFFVIS ---
Vital Signs 08/01/24 11:01 Weight 185 lb 3.013 oz BP 138/70 Blood Pressure Location Lt brachial Position Sitting Pulse 88 Pulse Source Pulse Oximeter Pulse Oximetry (%) 99 Oxygen Delivery Method Room Air Intake Visit Reasons: Asthma Allergies sulfamethoxazole [From Bactrim] Allergy (Severe, Verified 08/01/24 11:05) Rash trimethoprim [From Bactrim] Allergy (Severe, Verified 08/01/24 11:05) Rash levofloxacin [From LEVAQUIN] Allergy (Intermediate, Verified 08/01/24 11:05) RASH SOB, DIZZYNESS tramadol Adverse Reaction (Severe, Verified 08/01/24 11:05) abdominal pain, vomiting atorvastatin [Lipitor] Adverse Reaction (Intermediate, Verified 08/01/24 11:05) nausea codeine [CODEINE] Adverse Reaction (Intermediate, Verified 08/01/24 11:05) NAUSEA & VOMITING morphine [MORPHINE] Adverse Reaction (Intermediate, Verified 08/01/24 11:05) NAUSEA & VOMITING pravastatin Adverse Reaction (Intermediate, Verified 08/01/24 11:05) myalgia rosuvastatin Adverse Reaction (Mild, Verified 08/01/24 11:05) myalgia Medication List - Last Reconciled 08/01/24 by Consuelo Russ LPN acetaminophen ER 650 mg PO Q8H PRN 30 days [adona pillow seat and cushion As directed] [air conditioner As directed] albuterol sulfate 90 mcg/actuation (Ventolin HFA) 2 puffs PO Q6H PRN albuterol sulfate 2.5 mg (3 mL) inhalation Q6H PRN 30 days apixaban (Eliquis) 5 mg PO BID aripiprazole 5 mg PO DAILY cholecalciferol (vitamin D3) 25 mcg PO DAILY 90 days diltiazem HCl CD 120 mg PO DAILY dronedarone (Multaq) 400 mg PO BID 90 days escitalopram oxalate 10 mg PO DAILY famotidine (Pepcid) 20 mg PO BID PRN fenofibrate 54 mg PO BEDTIME 90 days fluocinolone acetonide oil 0.01% (DermOtic Oil) 5 drps otic (ear) left BID 7 days [hand held shower head As directed] hydrocortisone 1% (Anti-Itch (hydrocortisone)) 1 appl topical TID PRN hydrocortisone 1% (Anti-Itch (hydrocortisone)) 1 appl topical BID PRN 2 weeks incontinence pad, liner, disp Use 1 pad twice a day ipratropium-albuterol 0.5 mg-3 mg(2.5 mg base)/3 mL 3 mL inhalation QID PRN latex gloves Use 1 pair of gloves twice a day levothyroxine 25 mcg PO DAILY 90 days [lift recliner As directed] loratadine 10 mg PO DAILY 90 days losartan 25 mg PO DAILY 90 days mepolizumab (Nucala) 100 mg subcut Q4W nebulizers As directed [non disposable bed pads As directed] omeprazole 40 mg PO DAILY 30 days polyethylene glycol 3350 (Miralax) 17 grams PO DAILY PRN 30 days prednisone 5 mg PO DAILY [quilted wipes As directed] rosuvastatin 20 mg PO DAILY 90 days sennosides (senna) 8.6 mg PO BEDTIME PRN 30 days tamsulosin (Flomax) 0.4 mg PO DAILY 14 days triamcinolone acetonide 0.5% 1 appl topical BID umeclidinium 62.5 mcg/actuation (Incruse Ellipta) 1 inh inhalation DAILY 90 days underpads (Bed Underpads) As directed HPI Comments Details: The patient is a 73-year-old woman with a known history of 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 She also has had chronic obstructive disease with chronic bronchitis requiring multiple hospitalizations and multiple prednisone tapers. Recently she was tapered off the prednisone and she has had worsening respiratory symptoms. Today she has significant wheezing. Also, she has questions about inhaler she does not feel like the working. Today she is found to have significant wheezing so therefore I will give her Solu-Medrol injection. She was approved for Nucala which I very happy about. She is going to call the infusion center and get that scheduled MIGUELINA in order to start therapy for significant eosinophilic asthma. 03/19/2024 the patient is here for a pulmonary follow-up visit. Her asthma has been very well controlled. She denies any recent exacerbations except back in September when she had RSV. The Nucala injections continue be affecting beneficial. She understands the Nucala is not going to help her for viral infections. Only for allergies. The patient has been on 5 mg of prednisone. When she is tried coming off it she gets very symptomatic with myalgias and fatigue. Likely some component of secondary adrenal insufficiency. Although she is having significant epigastric discomfort with significant reflux disease. She has been on 20 mg of omeprazole. I will go ahead increase that. She will have an endoscopy soon. She may indeed have peptic ulcer disease secondary to her chronic prednisone use. We did talk about ways decreasing the prednisone. I do believe that she should continue to work down to the lowest most effective dose to see if we can minimize her adverse effects. She is going to have her evaluation and she is going to follow-up in the fall and will start working on decreasing her prednisone. 08/01/2024 the patient is here for pulmonary follow-up visit. The patient overall has been doing respiratory status. She continues to respond very well to Nucala. She continues on 5 mg of prednisone. She has not required any additional prednisone at this time. She did have an episode of vertigo recently. She is now better. She was also diagnosed with skin cancer. She needs to follow-up with the psychology assistant or surgeon. In addition to that she is still waiting for her EGD. She still continues to have issues with difficulty swallowing. She continues use her respiratory therapy with good effect. No recent imaging studies reviewed. She does not get any vaccines. Will follow-up in 6-8 months. If she has any issues prior to that she will call for an earlier assessment. ON LICENSE OF [facility] Medical History (Updated 08/01/24 @ 21:29 by Guzman Pinon MD) Skin cancer CKD (chronic kidney disease) stage 3, GFR 30-59 ml/min Chronic deep vein thrombosis (DVT) Right femoral vein DVT Osteoarthritis of knees, bilateral Mild recurrent major depression Polyarthralgia Osteopenia (~2007) Tubular adenoma of colon (~2009) Breast pain, left Postmenopausal Asthma-COPD overlap syndrome GERD (gastroesophageal reflux disease) HTN (hypertension) Paroxysmal atrial fibrillation (~01/2021) Dyslipidemia Hypothyroidism Pneumonia Eosinophilia Steroid dependent Chronic allergic rhinitis Asthma Surgical History History of right breast biopsy (~1998) History of colonoscopy History of D&C (~2002) History of tubal ligation History of shoulder surgery (~2006) History of nasal polypectomy (~2007) History of knee surgery Family History Father Medical history unknown Mother Alzheimer disease Daughter Lupus Other Arthritis Social History Household Members: None Housing: House Are you a primary patient care secretary to a significant other at home: No Do you presently have visiting nurse or other home services: Yes Alcohol intake: never Patient Tobacco Use Status: Former Tobacco user Tobacco use type: Cigarette e-Cigarette/Vaping Use: Never Used Second Hand Smoke Exposure: No Advance Directives Date on File: 11/10/20 service: No Current occupational status: disabled Cognitive needs: Yes (cane) Hearing needs: No Vision needs: Yes (glasses) Review of Systems Const Reports weight gain Eyes Reports no additional complaints ENT Denies dry mouth Card Reports no additional complaints and Reports dyspnea on exertion Resp Denies change in phlegm color, Denies chest congestion, Reports cough, Reports dyspnea on exertion and Denies wheezing GI Reports as per HPI, Reports abdominal pain, Reports dyspepsia, Reports heartburn, Denies diarrhea and Denies vomiting Reports no additional complaints Musc Reports back pain and Reports arthralgias Skin/Breast Denies rash Aller/Immun Denies wheezing Physical Exam Vital Signs: Last Vital Signs Pulse 88 08/01/24 11:01 BP 138/70 08/01/24 11:01 Pulse Ox 99 08/01/24 11:01 Oxygen Delivery Method Room Air 08/01/24 11:01 Const General: healthy appearing and comfortable Nutritional Appearance: obese Orientation/consciousness: oriented to person HEENT Head: Yes normocephalic Neck Neck: Yes supple Chest Chest palpation & inspection: normal inspection of the chest Resp Effort & Inspection: normal respiratory effort Auscultation: clear to auscultation bilaterally Cardio Rate: regular rate Rhythm: regular rhythm Heart sounds: S1 normal heart sound present and S2 normal heart sound present GI Inspection: Yes normal to inspection Palpation (GI): nontender Skin General skin exam: no rashes or lesions noted Neuro General: oriented to person Extrem General: Yes no clubbing, cyanosis or edema Assessment & Plan Assessment & Plan (1) Asthma: Code(s): J45.909 - Unspecified asthma, uncomplicated Category: Medical Qualifiers: Asthma complication type: uncomplicated Asthma persistence: persistent Asthma severity: severe Qualified Code(s): J45.50 - Severe persistent asthma, uncomplicated (2) Steroid dependent: Code(s): F19.20 - Other psychoactive substance dependence, uncomplicated Category: Medical (3) Chronic allergic rhinitis: Code(s): J30.9 - Allergic rhinitis, unspecified Category: Medical (4) Paroxysmal atrial fibrillation: Onset Date: ~01/2021 Code(s): I48.0 - Paroxysmal atrial fibrillation Category: Medical (5) Epigastric pain: Code(s): R10.13 - Epigastric pain Category: Medical (6) Skin cancer: Code(s): C44.90 - Unspecified malignant neoplasm of skin, unspecified Category: Medical Plan Xopenex as needed continue Prednisone 5mg daily reflux diet Omeprazole Awaiting EGD mucinex DM Continue Nucala therapy monthly Claritin as needed Continue anticoagulation with Eliquis Needs to have skin cancer on the left ear removed Follow-up in 6-8 months Coding Level of Care Code Est Pt Level 4 (49860) Diagnoses Severe persistent asthma without complication J45.50 Asthma complication type: uncomplicated Asthma persistence: persistent Asthma severity: severe Steroid dependent F19.20 Chronic allergic rhinitis J30.9 Paroxysmal atrial fibrillation I48.0 Epigastric pain R10.13 Skin cancer C44.90 Time Spent (min) 16
== END 2024-08-01 11:21 | disposition home or self-care (01) ==
LOC: HO.HPS 10:57
PROVIDERS: PCP Internal Medicine; Visit Provider Hospitalist
DX: J45.50 Severe persistent asthma, uncomplicated (principal); F19.20 Other psychoactive substance dependence, uncomplicated; J30.9 Allergic rhinitis, unspecified; I48.0 Paroxysmal atrial fibrillation; R10.13 Epigastric pain; C44.90 Unspecified malignant neoplasm of skin, unspecified
CPT/HCPCS: 99214

== ENCOUNTER → 2024-08-01 10:56 | Outpatient (BNVA) | payer OTHER, SELFPAY | PROVIDERS: PCP Internal Medicine; Visit Provider Hospitalist | DX: J45.50 Severe persistent asthma, uncomplicated (principal); J30.9 Allergic rhinitis, unspecified; F19.20 Other psychoactive substance dependence, uncomplicated; I48.0 Paroxysmal atrial fibrillation; R10.13 Epigastric pain; C44.90 Unspecified malignant neoplasm of skin, unspecified | CPT/HCPCS: 99212 ==

== ENCOUNTER 2024-08-07 09:15 | Outpatient (AMB) | payer OTHER, SELFPAY ==
[2024-08-07 09:36] VITALS: BP 148/78; PULSE 84; O2SAT 98; BMI 33.0
--- NOTE | 2024-08-07 09:36 | A.OFFVIS_ITS ---
Vital Signs 08/07/24 09:36 Height 5 ft 3 in Weight 186 lb 1.122 oz BMI 33.0 BP 148/78 H Blood Pressure Location Lt brachial Position Sitting Pulse 84 Pulse Source Pulse Oximeter Pulse Oximetry (%) 98 Oxygen Delivery Method Room Air Intake Visit Reasons: osteoporosis/CM Intake Note: Patient presents for inflammatory arthritis follow up. She was last seen by Dr. Duarte on 07/02/22. Meeting Manager Services: Meeting Manager Present Meeting Manager Name: julian [id number] Allergies sulfamethoxazole [From Bactrim] Allergy (Severe, Verified 08/07/24 09:39) Rash trimethoprim [From Bactrim] Allergy (Severe, Verified 08/07/24 09:39) Rash levofloxacin [From LEVAQUIN] Allergy (Intermediate, Verified 08/07/24 09:39) RASH SOB, DIZZYNESS tramadol Adverse Reaction (Severe, Verified 08/07/24 09:39) abdominal pain, vomiting atorvastatin [Lipitor] Adverse Reaction (Intermediate, Verified 08/07/24 09:39) nausea codeine [CODEINE] Adverse Reaction (Intermediate, Verified 08/07/24 09:39) NAUSEA & VOMITING morphine [MORPHINE] Adverse Reaction (Intermediate, Verified 08/07/24 09:39) NAUSEA & VOMITING pravastatin Adverse Reaction (Intermediate, Verified 08/07/24 09:39) myalgia rosuvastatin Adverse Reaction (Mild, Verified 08/07/24 09:39) myalgia Medication List - Last Reconciled 08/07/24 by Chasity Russo MD acetaminophen ER 650 mg PO Q8H PRN 30 days [adona pillow seat and cushion As directed] [air conditioner As directed] albuterol sulfate 90 mcg/actuation (Ventolin HFA) 2 puffs PO Q6H PRN albuterol sulfate 2.5 mg (3 mL) inhalation Q6H PRN 30 days apixaban (Eliquis) 5 mg PO BID aripiprazole 5 mg PO DAILY cholecalciferol (vitamin D3) 25 mcg PO DAILY 90 days diltiazem HCl CD 120 mg PO DAILY dronedarone (Multaq) 400 mg PO BID 90 days dronedarone (Multaq) 400 mg PO BID escitalopram oxalate 10 mg PO DAILY famotidine (Pepcid) 20 mg PO BID PRN fenofibrate 54 mg PO BEDTIME 90 days fluocinolone acetonide oil 0.01% (DermOtic Oil) 5 drps otic (ear) left BID 7 days [hand held shower head As directed] hydrocortisone 1% (Anti-Itch (hydrocortisone)) 1 appl topical TID PRN hydrocortisone 1% (Anti-Itch (hydrocortisone)) 1 appl topical BID PRN 2 weeks incontinence pad, liner, disp Use 1 pad twice a day ipratropium-albuterol 0.5 mg-3 mg(2.5 mg base)/3 mL 3 mL inhalation QID PRN latex gloves Use 1 pair of gloves twice a day levothyroxine 25 mcg PO DAILY 90 days [lift recliner As directed] loratadine 10 mg PO DAILY 90 days losartan 25 mg PO DAILY 90 days mepolizumab (Nucala) 100 mg subcut Q4W nebulizers As directed [non disposable bed pads As directed] omeprazole 40 mg PO DAILY 30 days polyethylene glycol 3350 (Miralax) 17 grams PO DAILY PRN 30 days prednisone 5 mg PO DAILY [quilted wipes As directed] rosuvastatin 20 mg PO DAILY 90 days sennosides (senna) 8.6 mg PO BEDTIME PRN 30 days tamsulosin (Flomax) 0.4 mg PO DAILY 14 days triamcinolone acetonide 0.5% 1 appl topical BID umeclidinium 62.5 mcg/actuation (Incruse Ellipta) 1 inh inhalation DAILY 90 days underpads (Bed Underpads) As directed HPI Comments Details: Patient is a 73-year-old female with hypertension, CKD stage 4, 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 Risk Factor Assessment: * Age: 73 years * Race: * Sex: Female * Menarche History: Menarche 11 years, Menopause 44 yrs * Positive family history including hip fracture: Mom and sister both have osteoporosis, sister fell and sustained hip fracture in the past * Low calcium/vitamin-D intake: takes vit D. Used to take calcium but it caused constipation so she stopped it. Drinks milk sometimes * Estrogen deficiency: none * Sedentary lifestyle: * Cigarette smoking: history of smoking. quit 20 years ago * Excessive alcohol: No * Excessive caffeine: drinks High-risk medication assessment: * Glucocorticoids: Has been on prednisone 5mg for 20 years, * Excess thyroid hormone: Hypothyroidism on levothyroxine * Anticonvulsants: None * Heparin : None * [place]: None * SSRIs: escitalopram, does not take it every day. On it for more than 1 year * Aromatase inhibitors: None [facility] Medical History (Updated 08/07/24 @ 10:57 by Chasity Russo MD) Skin cancer CKD (chronic kidney disease) stage 3, GFR 30-59 ml/min Chronic deep vein thrombosis (DVT) Right femoral vein DVT Osteoarthritis of knees, bilateral Mild recurrent major depression Polyarthralgia Osteopenia (~2007) Tubular adenoma of colon (~2009) Breast pain, left Postmenopausal Asthma-COPD overlap syndrome GERD (gastroesophageal reflux disease) HTN (hypertension) Paroxysmal atrial fibrillation (~01/2021) Dyslipidemia Hypothyroidism Pneumonia Eosinophilia Steroid dependent Chronic allergic rhinitis Asthma Surgical History History of right breast biopsy (~1998) History of colonoscopy History of D&C (~2002) History of tubal ligation History of shoulder surgery (~2006) History of nasal polypectomy (~2007) History of knee surgery Family History Father Medical history unknown Mother Alzheimer disease Daughter Lupus Other Arthritis Social History Household Members: None Housing: House Are you a primary career coordinator to a significant other at home: No Do you presently have visiting nurse or other home services: Yes Alcohol intake: never Patient Tobacco Use Status: Former Tobacco user Tobacco use type: Cigarette e-Cigarette/Vaping Use: Never Used Second Hand Smoke Exposure: No Advance Directives Date on File: 11/10/20 service: No Current occupational status: disabled Cognitive needs: Yes (cane) Hearing needs: No Vision needs: Yes (glasses) Review of Systems Const Details: Review of Systems Constitutional: Denies fever, chills, weight loss ENT: Denies vision changes, eye pain or eye redness, dental caries, dry mouth GI: Denies nausea, vomiting, diarrhea, abdominal pain, change in BM Pulm: Denies SOB, BELL, hemoptysis, wheezing Cards: Denies chest pain, palpitations Skin: Denies Raynaud's, rash, nail changes, photosensitivity, COPPER MINER: Denies headaches, weakness, paresthesias, recurrent falls MSK: as per HPI All other systems reviewed and are unremarkable except noted above Physical Exam Vital Signs: Last Vital Signs Pulse 84 08/07/24 09:36 BP 148/78 H 08/07/24 09:36 Pulse Ox 98 08/07/24 09:36 Oxygen Delivery Method Room Air 08/07/24 09:36 BMI result Body Mass Index 33.0 Physical Examination CONSTITUITIONAL Patient alert and cooperative. Well appearing and in no apparent painful distress HEENT Conjunctiva and sclera clear. ?Pupils equal round and reactive to light. ?No lymphadenopathy. ?Normal dentition. No oral or nasal ulcers noted. No evidence of discoid rash to the laury of ears CHEST/RESPIRATORY SYSTEM Normal respiratory effort and able to speak in complete sentences. ?Clear to auscultation bilaterally. ?No crackles, rales, rhonchi, wheezes heard. CARDIAC SYSTEM Regular rate and rhythm. ?S1 and S2 heard no murmurs. ?Radial pulses intact bilaterally MSK Hands: ?Good membership correspondent strength bilaterally - 5/5. ?No synovitis noted to the MCPs, PIPs or DIPs. ?No tenderness to palpation of these joints. Heberden's nodes noted to bilateral DIPs Wrists: ?Full range of motion at the wrists without pain. ?No tenderness to palpation or synovitis noted to the wrists. Elbows: Full range of motion without pain. No tenderness, weakness, swelling, increased warmth or erythema. Shoulders: Full range of motion without pain. No tenderness, weakness, swelling, increased warmth or erythema. Knees: ?Full range of motion. ?No tenderness, swelling, increased warmth or erythema.?No effusion or crepitations Ankles: Full range of motion. ?No tenderness, swelling, increased warmth or erythema.? Feet: ?Negative squeeze test. ?No tenderness to palpation or swelling of the MTPs. SKIN Skin intact without rashes. Results Reviewed Results Reviewed: DEXA 05/2024 FINDINGS: LEFT FEMUR, NECK: Current: BMD 0.766 g/cm2, Z-score -0.3, T-score -2.0, osteopenia. Prior: BMD 0.852 g/cm2. Baseline: BMD 0.920 g/cm2. LEFT FEMUR, TOTAL: Current: BMD 0.821 g/cm2, Z-score -0.1, T-score -1.5, osteopenia, 2.5% decrease from previous, 13.6% decrease from baseline (<5% change is not significant). Prior: BMD 0.842 g/cm2. Baseline: BMD 0.950 g/cm2. AP SPINE L1-L4: Current: BMD 0.879 g/cm2, Z-score -1.2, T-score -2.5, osteoporosis, 6.7% decrease from previous, 14.9% decrease from baseline (<5% change is not significant). Prior: BMD 0.912 g/cm2. Baseline: BMD 1.033 g/cm2. Laboratory Tests 02/08/24 03/06/24 06/18/24 10:48 14:43 10:44 WBC 6.8 8.7 RBC 4.32 4.13 L Hgb 11.5 L 10.8 L Plt Count 365 396 Sodium 143 Potassium 4.4 Chloride 108 Carbon Dioxide 27 BUN 29 H Creatinine 2.26 H 25-OH Vitamin D Total 27.0 L 07/17/24 09:50 WBC RBC Hgb Plt Count Sodium 144 Potassium 4.1 Chloride 109 H Carbon Dioxide 26 BUN 24 H Creatinine 1.93 H 25-OH Vitamin D Total Assessment & Plan Assessment & Plan (1) Osteoporosis: Comment: DEXA 05/2024. Left femur neck -2.0, Left femur -1.5, AP Spine -2.5 Code(s): M81.0 - Age-related osteoporosis without current pathological fracture Category: Medical Qualifiers: Osteoporosis type: age-related Presence of current pathological fracture: without current pathological fracture Qualified Code(s): M81.0 - Age- related osteoporosis without current pathological fracture Plan: #Osteoporosis Patient with osteoporosis involving anterior-posterior spine and left femoral ne ck. Spine has worse disease with T-score -2.5. Had a long discussion with patient about therapeutic options. Because of her CKD she is not a candidate for oral bisphosphonates. Denosumab does not clear through the kidney and has been approved for use in patients with CKD, GFR less than 35. Patient does not want injections at this time. I explained the risks of moving forward without treatment of her osteoporosis including fracture and possible spinal cord damage if she has a fracture to her spine. She understands these risks and would want to do conservative management. Previously on calcium supplements but the pills were difficult to swallow and made her constipated. I recommended calcium and vitamin-D gummies which are [id number]. I gave her a printout of this and told her once she purchases this to stop taking the vitamin-D pill. Hopefully because these are gummies these are easier to tolerate for her. Also printed out weight-bearing exercises for her to do every day. We will re-evaluate in 6 months. Plan I spent 45 minutes reviewing the record and labs, seeing the patient, discussing the treatment plan and documenting in the medical record ? Orders: Orders Calcium 6 Months M81.0 - Age-related osteoporosis without current pathological fracture Calcium, Ionized 6 Months M81.0 - Age-related osteoporosis without current pathological fracture TSH reflex Free T4 6 Months M81.0 - Age-related osteoporosis without current pathological fracture Comprehensive Met. Panel 6 Months M81.0 - Age-related osteoporosis without current pathological fracture Vitamin D 25-OH (D2 and D3) 6 Months M81.0 - Age-related osteoporosis without current pathological fracture Coding Level of Care Code New Pt Level 4 (10675) Complex EM visit Add On G2211 Diagnoses Age-related osteoporosis without current pathological fracture M81.0 Osteoporosis type: age-related Presence of current pathological fracture: without current pathological fracture
== END 2024-08-07 10:53 | disposition home or self-care (01) ==
LOC: HO.RHE 09:15
PROVIDERS: PCP Internal Medicine; Visit Provider Student in an Organized Health Care Education/Training Program
DX: M81.0 Age-related osteoporosis without current pathological fracture (principal)
CPT/HCPCS: 99204; G2211

== ENCOUNTER → 2024-08-07 09:15 | Outpatient (BNVA) | payer OTHER, SELFPAY | PROVIDERS: PCP Internal Medicine; Visit Provider Student in an Organized Health Care Education/Training Program | DX: M81.0 Age-related osteoporosis without current pathological fracture (principal) | CPT/HCPCS: 99202 ==

== ENCOUNTER → 2024-08-24 09:28 | Outpatient (REF) | payer OTHER, SELFPAY ==
--- NOTE | 2024-08-24 09:31 | CA_ITS ---
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 Normal LV ejection fraction with impaired relaxation filling pattern with LVEF of 60-65% 2. Calcific aortic and mitral valve changes noted with normal cardiac valvular Dopplers 3. Normal RV systolic pressure 4. No gross pericardial effusion Findings Left Ventricle Normal left ventricular size, thickness, and systolic function. The visually estimated ejection fraction is between 60-65%. Spectral Doppler is indicative of an impaired relaxation filling pattern. E/E prime ratio is between 8 and 15 consistent with indeterminate filling pressures. Right Ventricle Normal right ventricular cavity size and systolic function. Atria Both atria are normal in size. Interatrial shunt cannot be excluded. Aortic Valve There is mild calcification of the aortic valve. There is mild thickening of the aortic valve. There is no aortic valve stenosis. There is no aortic valve regurgitation. Mitral Valve There is mild anterior mitral leaflet thickening. There is mild mitral annular calcification. There is trace mitral valve regurgitation. There is no mitral valve stenosis. Pulmonic Valve The pulmonic valve was not well visualized. Tricuspid Valve Likely normal tricuspid valve structure and function. There is trace tricuspid valve regurgitation. The right ventricular systolic pressure is normal. The right ventricular systolic pressure is 23 mmHg. Normal right atrial pressure. There is no evidence of pulmonary hypertension. Great Vessels The pulmonary artery was not well visualized. There is no dilatation of the ascending aorta measuring 2.90 cm. Small plaque is seen in the sino tubular ridge. Venous The inferior vena cava is normal in size and collapses greater than 50% with inspiration. Pericardium/Pleural There is no evidence of pericardial effusion. Prior Study Comparison No significant change compared to prior study dated: 01/05/2021. Measurements 2D Linear Measurements IVSd: 1.09 0.6-0.9/0.6-1.0 cm LVIDd: 4.52 3.9-5.3/4.2-5.9 cm LVIDd Index: 2.44 2.4-3.2/2.2-3.1 cm/m2 LVIDs: 2.89 2.0-3.6 cm LVPWd: 1.05 0.7-1.1 cm Ao Root: 2.90 2.1-3.5 cm LA Diam: 4.30 2.7-3.8/3.0-4.0 cm LAIDs Index: 2.32 1.5-2.3 cm/m2 LV Mass: 211.19 67-162/88-224 g LV Mass Index: 114.15 43-95/49-115 g/m2 LVOT Diam: 2.00 3.0+(-)1.3 cm Mitral Valve MV Pk E: 0.69 MV PK A: 1.10 MV Decel Time: 188.00 E/A: 0.60 E'Lateral: 7.07 E'Medial: 4.79 E/E' Med: 14.40 E/E' Lat: 9.80 PHT: 55.00 MVA PHT: 4.00 Decel [place]: 3.67 Aortic Valve AoV Pk William: 1.48 AoV Mn William: 0.90 AoV VTI: 0.40 AoV Pk Grad: 9.00 Aov Mn Grad: 4.00 JERRY Cont.VTI: 2.02 LVOT LVOT Pk William: 1.01 LVOT Mn William: 0.65 LVOT VTI: 0.26 LVOT Pk Grad: 4.00 LVOT Mn Grad: 2.00 LVOT Diam: 2.00 LVOT Area: 3.14 Diastolic Function MV Pk E: 0.69 MV Pk A: 1.10 E/A: 0.60 E'Medial: 4.79 E/E' Med: 14.40 E' Laterial: 7.07 E/E' Lat: 9.80 Right Ventricle TAPSE (mm): 17.00 TVS' William: 9.00 Tricuspid Valve TR Pk William: 2.26 TR Pk Grad: 20.00 RA Press: 3.00 RVSP: 23.00 Great Vessels Aorta Ao Root-2D: 2.90 2.0-3.7 cm Ao Asc: 2.90 2.1-3.4 cm Pulmonary Valve PV Pk William: 0.82 Peak PV Grad: 3.00 Updated in Other Vendor System with Status of Final Alexandro Cortés MD electronically signed on 08/25/2024 10:22:29 AM with status of Final
== END ==
LOC: HO.CARD 09:28
PROVIDERS: PCP Internal Medicine; Visit Provider Internal Medicine Cardiovascular Disease
DX: I48.0 Paroxysmal atrial fibrillation (principal)
CPT/HCPCS: 93306

== ENCOUNTER → 2024-08-24 09:31 | Outpatient (BNV) | payer OTHER, SELFPAY | PROVIDERS: PCP Internal Medicine; Visit Provider Internal Medicine Cardiovascular Disease | DX: I35.8 Other nonrheumatic aortic valve disorders (principal); I34.81 Nonrheumatic mitral (valve) annulus calcification | CPT/HCPCS: 93306 ==

== ENCOUNTER 2024-10-01 09:40 | Outpatient (AMB) | payer OTHER, SELFPAY ==
--- NOTE | 2024-10-01 09:43 | A.OFFPC_ITS ---
Vital Signs 10/01/24 09:47 10/01/24 10:06 Height 5 ft 3 in Weight 183 lb BMI 32.4 BP 170/80 H 132/80 Blood Pressure Location Lt brachial Lt brachial Position Sitting Pulse 82 Pulse Source Pulse Oximeter Pulse Oximetry (%) 98 Oxygen Delivery Method Room Air Intake Visit Reasons: bp Intake Note: Patient here for a follow up BP, c/o bilateral ear discomfort Channel Marketing Program Manager Required: No Accompanied by: Self / Same As Patient Allergies sulfamethoxazole [From Bactrim] Allergy (Severe, Verified 10/01/24 10:03) Rash trimethoprim [From Bactrim] Allergy (Severe, Verified 10/01/24 10:03) Rash levofloxacin [From LEVAQUIN] Allergy (Intermediate, Verified 10/01/24 10:03) RASH SOB, DIZZYNESS tramadol Adverse Reaction (Severe, Verified 10/01/24 10:03) abdominal pain, vomiting atorvastatin [Lipitor] Adverse Reaction (Intermediate, Verified 10/01/24 10:03) nausea codeine [CODEINE] Adverse Reaction (Intermediate, Verified 10/01/24 10:03) NAUSEA & VOMITING morphine [MORPHINE] Adverse Reaction (Intermediate, Verified 10/01/24 10:03) NAUSEA & VOMITING pravastatin Adverse Reaction (Intermediate, Verified 10/01/24 10:03) myalgia rosuvastatin Adverse Reaction (Mild, Verified 10/01/24 10:03) myalgia Medication List - Last Reconciled 10/01/24 by Angelique Valentine MD acetaminophen ER 650 mg PO Q8H PRN 30 days [adona pillow seat and cushion As directed] [air conditioner As directed] albuterol sulfate 90 mcg/actuation (Ventolin HFA) 2 puffs PO Q6H PRN albuterol sulfate 2.5 mg (3 mL) inhalation Q6H PRN 30 days apixaban (Eliquis) 5 mg PO BID aripiprazole 5 mg PO DAILY cholecalciferol (vitamin D3) 25 mcg PO DAILY 90 days diltiazem HCl CD 120 mg PO DAILY dronedarone (Multaq) 400 mg PO BID escitalopram oxalate 10 mg PO DAILY famotidine (Pepcid) 20 mg PO BID PRN 90 days fenofibrate 54 mg PO BEDTIME 90 days fluocinolone acetonide oil 0.01% (DermOtic Oil) 5 drps otic (ear) left BID 7 days [hand held shower head As directed] hydrocortisone 1% (Anti-Itch (hydrocortisone)) 1 appl topical TID PRN hydrocortisone 1% (Anti-Itch (hydrocortisone)) 1 appl topical BID PRN 2 weeks incontinence pad, liner, disp Use 1 pad twice a day ipratropium-albuterol 0.5 mg-3 mg(2.5 mg base)/3 mL 3 mL inhalation QID PRN latex gloves Use 1 pair of gloves twice a day levothyroxine 25 mcg PO DAILY 90 days [lift recliner As directed] loratadine 10 mg PO DAILY 90 days losartan 25 mg PO DAILY 90 days mepolizumab (Nucala) 100 mg subcut Q4W nebulizers As directed [non disposable bed pads As directed] omeprazole 40 mg PO DAILY 30 days polyethylene glycol 3350 (Miralax) 17 grams PO DAILY PRN 30 days prednisone 5 mg PO DAILY [quilted wipes As directed] rosuvastatin 20 mg PO DAILY 90 days sennosides (senna) 8.6 mg PO BEDTIME PRN 30 days tamsulosin (Flomax) 0.4 mg PO DAILY 14 days triamcinolone acetonide 0.5% 1 appl topical BID umeclidinium 62.5 mcg/actuation (Incruse Ellipta) 1 inh inhalation DAILY 90 days underpads (Bed Underpads) As directed Tobacco use date assessed: 12/15/23 Fall risk assessment: No Falls in past year Last assessed Fall Risk: 10/01/24 Dental Screening Dental Screen Date: 10/01/24 Did you have a dental visit in the last 12 months?: No Did you have a dental problem in the last 6 months where you did not have access to dental care?: No Was dental information given to patient?: Patient has dentist HPI HPI Comments History of Present Illness Details The patient is a 73-year-old female presenting with complaints of elevated blood pressure readings and bilateral ear pain. The patient has a history of essential hypertension, normally managed with losartan 25 mg daily, with recent home blood pressure readings showing systolic measurements around 132 mmHg and diastolic measurements of 80 mmHg, reflecting stable hypertension management. Patient noted experiencing a bothersome bilateral ear sensation over the past three days, described as a jolting nerve-like discomfort with pruritus and dull pain, predominantly in the left ear. The patient reports this sensation is a new occurrence without known exposure or precipitating factors. The patient also has a history of atrial fibrillation, currently managed with Eliquis (apixaban) 5 mg twice daily, and Diltiazem 120 mg daily for rhythm control. Depression with anxiety is managed with Abilify (aripiprazole) 5 mg daily and Escitalopram 10 mg daily, for which she follows up with her psychiatrist. There is a known case of gastroesophageal reflux disease attributed to achalasia, lead to esophagitis with follow-up scheduled with gastroenterology. For hyperlipidemia, patient takes a rosuvastatin 20 mg daily. She experiences muscle pain from previous statins including pravastatin and atorvastatin. The patient has a known allergic reaction manifested as rash to sulfamethoxazole, levofloxacin, and reports abdominal pain with tramadol. Codeine and morphine caused nausea and vomiting. [facility] Medical History Skin cancer CKD (chronic kidney disease) stage 3, GFR 30-59 ml/min Chronic deep vein thrombosis (DVT) Right femoral vein DVT Osteoarthritis of knees, bilateral Mild recurrent major depression Polyarthralgia Osteopenia (~2007) Tubular adenoma of colon (~2009) Breast pain, left Postmenopausal Asthma-COPD overlap syndrome GERD (gastroesophageal reflux disease) HTN (hypertension) Paroxysmal atrial fibrillation (~01/2021) Dyslipidemia Hypothyroidism Pneumonia Eosinophilia Steroid dependent Chronic allergic rhinitis Asthma Surgical History History of right breast biopsy (~1998) History of colonoscopy History of D&C (~2002) History of tubal ligation History of shoulder surgery (~2006) History of nasal polypectomy (~2007) History of knee surgery Family History Father Medical history unknown Mother Alzheimer disease Daughter Lupus Other Arthritis Social History Household Members: None Housing: House Are you a primary student career development specialist to a significant other at home: No Do you presently have visiting nurse or other home services: Yes Alcohol intake: never Patient Tobacco Use Status: Former Tobacco user Tobacco use type: Cigarette e-Cigarette/Vaping Use: Never Used Second Hand Smoke Exposure: No Advance Directives Date on File: 11/10/20 service: No Current occupational status: disabled Cognitive needs: Yes (cane) Hearing needs: No Vision needs: Yes (glasses) Questionnaire Thrive Questionnaire Date Thrive assessed: 12/15/23 FABIOLA-7 AMB Questionnaire FABIOLA-7 Date FABIOLA - 7 assessed: 12/15/23 Source: Developed by Drs. Mk Zapata, Roseline Pantoja, Nura Bailon and colleagues, with an educational camila from [employer]. Review of Systems Const Details: - Neurological: Denies any headaches or dizziness. - Cardiovascular: Reports stable heart rhythm under current medication. - Gastrointestinal: Recent episode of reflux disease related to achalasia. - Musculoskeletal: Denies significant new muscle pains outside previous statin- associated myalgias. - Ears: Reports bilateral ear discomfort with prickling sensation, predominantly in the left ear. Physical exam (Primary Care) Vital Signs: Last Vital Signs Pulse 82 10/01/24 09:47 BP 132/80 10/01/24 10:06 Pulse Ox 98 10/01/24 09:47 Oxygen Delivery Method Room Air 10/01/24 09:47 BMI result Body Mass Index 32.4 Tobacco/Smoking Status: Tobacco use Status Tobacco use date assessed 12/15/23 10/01/24 09:47 Patient Tobacco Use Status Former Tobacco user 10/01/24 09:47 Tobacco use type Cigarette 10/01/24 09:47 e-Cigarette/Vaping Use Never Used 10/01/24 09:47 Thrive Assessment: Date of Thrive Assessment Date Thrive assessed 12/15/23 10/01/24 09:47 Const Other: General: No confusion Orientation/Consciousness: Patient oriented x3 and No confusion Respiratory: Normal respiratory effort, clear to auscultation bilaterally Cardiovascular: No jugular venous distension, regular rate, regular rhythm, S1 normal heart sound present and S2 normal heart sound present Office Procedures Flu Questionnaire Does the patient have a severe egg allergy?: No Immunizations Fluarix Triv [id number] (PF) 45 mcg (15 mcg x 3)/0.5 mL IM syringe Performing Provider: Angelique Valentine MD Performing Location: [facility] Documented (not given) by: CONNIE Valdovinos on 10/01/24 09:57 Reason Not Given: Patient Refused Coding Level of Care Code Est Pt Level 4 (44158) Complex EM visit Add On G2211 Diagnoses Essential hypertension I10 Mild recurrent major depression F33.0 Paroxysmal atrial fibrillation I48.0 Asthma-COPD overlap syndrome J44.9 Hypothyroidism, unspecified type E03.9 Hypothyroidism type: unspecified Dyslipidemia E78.5 Chronic idiopathic constipation K59.04 Time Spent (min) 23 Assessment & Plan Assessment & Plan (1) Essential hypertension: Code(s): I10 - Essential (primary) hypertension Category: Medical (2) Mild recurrent major depression: Code(s): F33.0 - Major depressive disorder, recurrent, mild Category: Medical (3) Paroxysmal atrial fibrillation: Onset Date: ~01/2021 Code(s): I48.0 - Paroxysmal atrial fibrillation Category: Medical (4) Asthma-COPD overlap syndrome: Code(s): J44.9 - Chronic obstructive pulmonary disease, unspecified Category: Medical (5) Hypothyroidism: Code(s): E03.9 - Hypothyroidism, unspecified Category: Medical Qualifiers: Hypothyroidism type: unspecified Qualified Code(s): E03.9 - Hypothyroid ism, unspecified (6) Dyslipidemia: Code(s): E78.5 - Hyperlipidemia, unspecified Category: Medical (7) Chronic idiopathic constipation: Code(s): K59.04 - Chronic idiopathic constipation Category: Medical Plan - HTN: Continue losartan 25 mg once daily. Reevaluate blood pressure control at the next visit. - Atrial Fibrillation: Continue Eliquis 5 mg twice daily and Diltiazem 120 mg daily. Ensure routine cardiology follow-up. - Depression with Anxiety: Maintain current regimen of Abilify and Escitalopram. - GERD/Achalasia: Continue use of omeprazole; follow up with gastroenterology in November. - Hyperlipidemia: Continue rosuvastatin 20 mg daily, with consideration of nocturnal dosing for optimal efficacy if adherence is improved. - Constipation: Utilize Miralax and Senna as needed for bowel regulation. - Ear Pain: Conduct wax removal procedures and inspect for underlying issues. - Allergic Reactions: Document allergies and monitor for additional adverse reactions during therapeutic management. Patient was informed and verbally consented to the use of an ambient scribe for clinic note documentation during this visit. The patient and I discussed the management of her essential hypertension, ongoing monitoring of blood pressure readings at home, and adherence to current antihypertensive treatment. Regarding atrial fibrillation, I reviewed the importance of anticoagulation therapy with Eliquis to prevent thromboembolic events and confirmed medication compliance. We addressed her episodes of ear pain, considering ear wax removal and further evaluation if symptoms persist. I advised her on the interaction and impact of diet and peanut butter ingestion related to her anticoagulation therapy, reassuring her there were no contraindications with Eliquis. We also scheduled upcoming labs for comprehensive blood work to assess health maintenance and therapeutic management. Orders: Orders Influenza [id number] Immunization Today Z23 - Encounter for immunization Lipid Panel Today E78.5 - Hyperlipidemia, unspecified Vitamin B12 and Folate Today E53.8 - Deficiency of other specified B group vitamins Vitamin D 25-OH Total Today E55.9 - Vitamin D deficiency, unspecified Complete Blood Count Auto Diff Today D64.9 - Anemia, unspecified Thyroid Stimulating Hormone Today E03.9 - Hypothyroidism, unspecified Comprehensive [place]. Panel Fast Today N18.4 - Chronic kidney disease, stage 4 (severe) Medications: New fluocinolone acetonide oil 0.01% (DermOtic Oil) 5 drps otic (ear) left BID 20 mL 0RF 7 days Refilled sennosides (senna) 8.6 mg PO BEDTIME PRN 30 tabs 2RF constipation 30 days Patient Instructions: - Continue current hypertension and atrial fibrillation medications as prescribed. - Use Miralax and Senna as needed for constipation management. - Conduct ear wax management as needed and notify of any worsening symptoms. - Attend scheduled gastroenterology and psychiatric appointments. - Contact the office if there are concerns with medication side effects or new symptoms arise.
[2024-10-01 09:47] VITALS: BP 170/80; PULSE 82; O2SAT 98; BMI 32.4
[2024-10-01 10:06] VITALS: BP 132/80
== END 2024-10-01 10:14 | disposition home or self-care (01) ==
PROVIDERS: PCP Internal Medicine; Visit Provider Internal Medicine
DX: I10 Essential (primary) hypertension (principal); F33.0 Major depressive disorder, recurrent, mild; I48.0 Paroxysmal atrial fibrillation; J44.9 Chronic obstructive pulmonary disease, unspecified; E03.9 Hypothyroidism, unspecified; E78.5 Hyperlipidemia, unspecified; K59.04 Chronic idiopathic constipation; Z23 Encounter for immunization

== ENCOUNTER → 2024-10-01 09:40 | Outpatient (BNVA) | payer OTHER, SELFPAY | PROVIDERS: PCP Internal Medicine; Visit Provider Internal Medicine | DX: I10 Essential (primary) hypertension (principal); F33.0 Major depressive disorder, recurrent, mild; I48.0 Paroxysmal atrial fibrillation; J44.9 Chronic obstructive pulmonary disease, unspecified; E03.9 Hypothyroidism, unspecified; E78.5 Hyperlipidemia, unspecified; K59.04 Chronic idiopathic constipation | CPT/HCPCS: 90471; 99212 ==

== ENCOUNTER 2024-11-06 08:54 | Outpatient (REF) | payer OTHER, SELFPAY ==
--- OUTSIDE RECORDS SUMMARY | 2024-11-06 09:16 | XMS_ITS | Clinical Summary ---
Author Organization [facility] Address [address] [address] [place] [address] Phone Care Team Providers Care Residential Concierge Name Role Phone Angelique Li MD Primary Care Provider [phone] Allergies Active Allergy Reactions Criticality Noted Date Comments Acetaminophen Nausea 11/26/2019 Codeine Other (see comments) 11/11/2013 tylenol #3 Levofloxacin Other (see comments) 11/11/2013 Atorvastatin 05/19/2022 Morphine 05/19/2022 Statins Other (see comments) 11/11/2013 Tramadol 05/19/2022 Trimethoprim 05/19/2022 Medications Eliquis 5 MG tablet TOME ROBBIE TABLETA DOS VECES AL D A 2 Active ARIPiprazole (ABILIFY) 5 MG tablet TOME ROBBIE TABLETA TODOS LOS D 2 Active dilTIAZem CD (CARDIZEM CD) 120 MG 24 hr capsule TOME ROBBIE C PSULA TODOS LOS D 2 Active Multaq 400 MG tablet TOME ROBBIE TABLETA DOS VECES AL D A 2 Active Nucala 100 MG/ML solution prefilled syringe 2 Active loratadine (CLARITIN) 10 MG tablet TOME ROBBIE TABLETA POR V A ORAL TODOS LOS D FOR 90 DAYS 2 Active levothyroxine (SYNTHROID, LEVOTHROID) 25 MCG tablet TOME ROBBIE TABLETA TODOS LOS D 2 Active ipratropium-alb uterol (DUO-NEB) 0.5-2.5 mg/3 mL nebulizer solution 2 Active escitalopram (LEXAPRO) 10 MG tablet TOME ROBBIE TABLETA TODOS LOS D 2 Active omeprazole (PriLOSEC) [address] capsule TOME 1 C PSULA POR V A ORAL TODOS LOS D FOR 90 DAYS 2 Active Incruse Ellipta 62.5 MCG/INH aerosol powder TAKE 1 INHALATION DAILY 2 Active predniSONE 5 MG tablet TOME ROBBIE TABLETA TODOS LOS D FOR COPD 2 Active simvastatin (ZOCOR) 10 MG tablet Take 10 mg by mouth every night Active Active Problems Problem Noted Date Diagnosed Date Chronic kidney disease stage 3 05/20/2022 Resolved Problems Problem Noted Date Diagnosed Date Resolved Date Allergic rhinitis 11/11/2013 05/20/2022 Overview (05/19/2022): Allergic rhinitis Asthma 11/11/2013 05/20/2022 Overview (05/19/2022): Asthma Chronic sinusitis 11/11/2013 05/20/2022 Overview (05/19/2022): Chronic sinusitis Hyperlipidemia 11/06/2013 05/20/2022 Overview (05/19/2022): Hyperlipidemia Hypogammaglobulinemia 11/06/20132021 Overview (05/19/2022): Hypogammaglobulinemia; Normal IgG and IgA slight def. in subclass of IgA-2 and IgG 1 and 3 Hypothyroidism 11/06/2013 05/20/2022 Overview (05/19/2022): Hypothyroidism Malignant melanoma 11/06/2013 Overview (05/19/2022): Malignant melanoma Nasal polyp 11/06/2013 05/20/2022 Overview (05/19/2022): Nasal polyp Pneumonia 11/06/2013 05/20/2022 Overview (05/19/2022): Pneumonia; by report twice Family History Medical History Relation Comments No Known Problems Father No Known Problems Mother Relation Status Comments Father Mother Social History Tobacco Use Types Packs/Day Years Used Date Smoking Tobacco: Former Cigarettes Passive Smoke Exposure: Current Smokeless Tobacco: Never Tobacco Cessation:Counseling Given: Not Answered Alcohol Use Standard Drinks/Week Comments Never 0 (1 standard drink = 0.6 oz pur e alcohol) Comments Unknown Sex and Gender Information Value Date Recorded Sex Assigned at Not on file Legal Sex Female 8:49 AM EDT Gender Identity Not on file Sexual Orientation Not on file Last Filed Vital Signs Vital Sign Reading Time Taken Comments Blood Pressure 132/76 03/17/2023 12:57 PM EDT Pulse 80 03/17/2023 12:57 PM EDT Temperature - - Respiratory Rate - - Oxygen Saturation 97% 03/17/2023 12:57 PM EDT Inhaled Oxygen Concentration - - Weight 87 kg (191 lb 12.8 oz) 03/17/2023 12:57 P M EDT Height 160 cm (5' 3 ) 03/17/2023 12:57 PM EDT Body Mass Index 33.98 03/17/2023 12:57 PM EDT Plan of Treatment Health Maintenance Due Date Last Done Comments Breast Cancer Screening 1949 Pneumococcal Vaccine: 65+ Ye ars (1 of 2 - PCV) 1955 Colorectal Cancer Screening: Annual FOBT 1998 Colorectal Cancer Screening: Colonoscopy 1998 Colorectal Cancer Screening: Sigmoidoscopy 1998 Influenza Vaccine (#1) 2024 Hepatitis B Vaccine Aged Out No longe r eligible based on patient's age to complete this topic Insurance [facility] DUAL SNP ([id number]) [facility] DUAL SNP ([id number]) Care Teams Residential Concierge Relationship Specialty Start Date End Date Angelique Li MD [address] [facility] [address] [place] [address] PCP - General Internal Medicine 04/07/22
--- OUTSIDE RECORDS SUMMARY | 2024-11-06 09:16 | XMS_ITS | Clinical Summary ---
Author Organization [employer] Address [address] [place] [address] Care Team Providers Care Fourdrinier Tender Name Role Phone Unavailable Primary Care Provider Unavailabl e Allergies Active Allergy Reactions Criticality Noted Date Comments Acetaminophen Nausea Only 11/26/2019 Codeine Nausea Only,Other 11/11/2013 tylenol #3 Levofloxacin Nausea Only,Other 11/11/2013 Morphine 05/19/2022 Statins Other 03/28/2012 Tramadol 05/19/2022 Trimethoprim 05/19/2022 Medications citalopram (CeleXA) 20 MG tablet Take 1.5 tablets by mouth in the morning. Active tiotropium (Spiriva HandiHaler) [address] 1 capsule into inhaler and inhale in the morning. 2 Active pravastatin (Pravachol) 10 MG tablet Take 1 tablet by mouth at bed time. 3 Active polyvinyl alcohol (Artificial Tears) 1.4 % ophthalmic solution Administer 1 drop into both eyes in the morning, at noon, and at bedtime. 9 Active loratadine (Claritin) 10 MG tablet Take 1 tablet by mouth in the morning. 4 Active ketotifen (Zaditor) 0.025 % ophthalmic solution Administer 1 drop into both eyes in the morning and at bedtime. 9 Active hydrOXYzine pamoate (Vistaril) 50 MG capsule Take 1-2 capsules by mouth at bedtime. Active Fluticasone-Derrick meterol (Advair Diskus) 500-50 MCG/ACT aerosol powder Inhale 1 puff every 12 (twelve) hours. 2 Active clonazePAM (KlonoPIN) 1 MG tablet Take 1 tablet by mouth at bedtime. 2 Active montelukast (Singulair) 5 mg split tablet Take 1 tablet by mouth at bed time. 3 Active levothyroxine (Synthroid, Levoxyl) 75 MCG tablet Take 1 tablet by mouth in the morning. 3 Active Eliquis 5 MG tablet TOME ROBBIE TABLETA DOS VECES AL D A 3 Active ARIPiprazole (Abilify) 5 MG tablet TOME ROBBIE TABLETA TODOS LOS D 3 Active Multaq 400 MG tablet TOME ROBBIE TABLETA POR V A ORAL DOS VECES AL D A FOR 90 DAYS 3 Active levothyroxine (Synthroid, Levoxyl) 25 MCG tablet TOME ROBBIE TABLETA LOS D 3 Active Nucala 100 MG/ML solution prefilled syringe 3 Active albuterol (2.5 MG/3ML) 0.083% nebulizer solution 2.5 MG (3 ML) INHALED EVERY 6 HOURS NEEDED FOR SHORTNESS OF BREATH OR WHEEZING FOR 30 DAYS 4 Active dilTIAZem CD (Cardizem CD) 180 MG 24 hr capsule TOME 1 C PSULA POR V A ORAL TODOS LOS D 4 Active predniSONE (Deltasone) 10 MG tablet PLEASE SEE ATTACHED FOR DETAILED DIRECTIONS 4 Active rosuvastatin (Crestor) 20 MG tablet ONE TABLET BY MOUTH EVERY DAY FOR 90 DAYS 4 Active Incruse Ellipta 62.5 MCG/ACT aerosol powder INHALE UN SOPLIDO A DIARIO Active tamsulosin (Flomax) 0.4 MG 24 hr capsule Take 0.4 mg by mouth Once per day. 3 Active omeprazole (PriLOSEC) [address] capsule TOME 1 C PSULA POR V A ORAL TODOS LOS D 4 Active losartan (Cozaar) 25 MG tablet TOME 1 TABLETA POR V A ORAL TODOS LOS D 4 Active Hydrocortisone, Perianal, 1 % cream APPLY TOPICALLY 2 TIMES A DAY NEEDED FOR SKIN IRRITATION FOR 2 WEEKS 4 Active fenofibrate (Tricor) 54 MG tablet TOME ROBBIE TABLETA (54 MG) ORALLY BEDTIME FOR 90 DAYS 4 Active famotidine (Pepcid) 20 MG tablet TOME 1 TABLETA POR V A ORAL DOS VECES AL D A NEEDED FOR GASTRITIS 4 Active escitalopram (Lexapro) 10 MG tablet TOME 1 TABLETA POR V A ORAL TODOS LOS D EN LA NOCHE Active [employer] Sleep Aid Nighttime 25 MG tablet TAKE 1 TABLET BY MOUTH AT BEDTIME NEEDED FOR SYMPTOMS OF INSOMNIA/ NEEDED. 4 Active D3-1000 25 MCG (1000 UT) capsule Take 25 mcg by mouth Once per day. 4 Active acetaminophen (Tylenol 8 Hour) 650 MG ER tablet TOME 1 TABLETA POR V A ORAL CADA 8 HORAS CU[place]O SEA NECESARIO PARA EL DOLOR 4 Active Active Problems No known active problems Social History Tobacco Use Types Packs/Day Years Used Date Smoking Tobacco: Former Cigarettes Tobacco Cessation:Counseling Given: Not Answered Comments Unknown Sex and Gender Information Value Date Recorded Sex Assigned at Female 08/02/2022 10:15 AM EDT Legal Sex Female 10:15 AM EDT Gender Identity Female 08/02/2022 10:15 AM EDT Sexual Orientation Straight 08/02/2022 10 :15 AM EDT Plan of Treatment Upcoming Encounters Date Type Department Care Team (Late st Contact Info) Description 12/17/2024 10:00 AM EDT Office Visit [facility] [address] [place] [address] Frank Aldridge Health Maintenance Due Date Last Done Comments CT Colonography 1949 Colonoscopy 1949 Colorectal Cancer Screening 1949 Depression Screening 1949 FIT DNA/Cologuard 1949 FIT 1949 FOBT 1949 SDOH Screening 1949 Sigmoidoscopy 1949 Alcohol/Substance Use Screening 1961 Hepatitis C Screening 1967 Zoster Vaccines (1 of 2) 1999 Dental X-Ray: Full Mouth 09/29/2014 09/28/2011 Pneumococcal Vaccine: 50+ Years (2 of 2 - PCV) 05/10/2016 05/10/2015, 08/21/2002 Dental Oral Exam 11/27/2018 05/26/2018, 05/2017, 06/17/2016, Additional history exists Dental Prophylaxis 11/27/2018 05/26/2018, 0 05/10/2017, 06/24/2016, Additional history exists Dental X-Ray: Bitewings 05/27/2019 05/26/20 18, 05/10/2017, 06/17/2016, Additional history exists DTaP/Tdap/Td Vaccines (2 - Td or Tdap) 06/23/2022 06/23/2012 COVID-19 Vaccine ( - 2023- season) 2024 Influenza Vaccine (#1) 2024 8, 06/11/2013, 06/23/2012 RSV Patients and Patients Aged 60 years or older (1 - 1-dose 75+ series) 2024 Tobacco Screening 05/30/2025 05/30/2024 HIB Vaccines Aged Out No longer eligi ble based on patient's age to complete this topic HPV Vaccines Aged Out No longer eligi ble based on patient's age to complete this topic Hepatitis A Vaccines Aged Out No long er eligible based on patient's age to complete this topic Hepatitis B Vaccines Aged Out No long er eligible based on patient's age to complete this topic IPV Vaccines Aged Out No longer eligi ble based on patient's age to complete this topic Meningococcal Vaccine Aged Out No daily khalif eligible based on patient's age to complete this topic RSV under 20 months Aged Out No longe r eligible based on patient's age to complete this topic Rotavirus Vaccines Aged Out No longer eligible based on patient's age to complete this topic Procedures Procedure Name Priority Date/Time Associated Diagnosis Comments PROPHYLAXIS - ADULT Routine 05/26/2018 1 2:00 AM EDT BITEWINGS - 4 RADIOGRAPHIC IMAGES Routine 05/26/2018 12:00 AM EDT PERIODIC ORAL EVALUATION - ESTABLISHED PATIENT Routine 05/26/2018 12:00 AM EDT DIAGNOSTIC - DIAGNOSTIC IMAGING - INTRAORAL - COMPREHENSIVE SERIES OF RADIOGRAPHIC IMAGES Routine 09/28/2011 12:00 AM EST from Last 3 Months or Most Recently Relevant to Health Maintenance Insurance [facility] [employer] Member Subscriber Plan / Payer (Ef fective 2016-Present) Name:Sona Pinon Relation to Subscriber:Self Name:Sona Pinon Payer ID:Not on file Group ID:[id number] Type:Not on file Address: [address] [place] [id number] DENTAL - [facility]
--- OUTSIDE RECORDS SUMMARY | 2024-11-06 09:16 | XMS_ITS | Encounter Summary ---
Author Organization [employer] Address [address] [facility] [address] [place] [address] Care Team Providers Care Rickshaw Driver Name Role Phone Unavailable Primary Care Provider Unavailabl e Encounter Details Date Type Department Care Team (Late st Contact Info) Description 09/03/2022 Abstract [facility] [address] [place] [address] Dental, Provider, DDS Social History Tobacco Use Types Packs/Day Years Used Date Smoking Tobacco: Never Assessed Comments Unknown Sex and Gender Information Value Date Recorded Sex Assigned at Female 08/02/2022 10:15 AM EDT Legal Sex Female 10:15 AM EDT Gender Identity Female 08/02/2022 10:15 AM EDT Sexual Orientation Straight 08/02/2022 10 :15 AM EDT documented as of this encounter Plan of Treatment Upcoming Encounters Date Type Department Care Team (Late st Contact Info) Description 12/17/2024 10:00 AM EDT Office Visit [facility] [address] [place] [address] Frank Aldridge documented as of this encounter Procedures Procedure Name Priority Date/Time Associated Diagnosis Comments 25 MIFL COMPOSITE FILLING Routine 09/03/2022 12:00 AM EST documented in this encounter Visit Diagnoses Not on filedocumented in this encounter
[2024-11-06 09:22] LABS: MANUAL DIFF FLAG NO
[2024-11-06 09:54] LABS: Basophils Absolute Auto 0.1 X10*3/uL (0.0-0.2); Basophils Percent Auto 1.2 % (0-2); Eosinophils Absolute Auto 0.1 X10*3/uL (0.0-0.4); Hematocrit 37.4 % (37.0-47.0); Hemoglobin 11.6 g/dl (12.0-16.0); Imm Gran Abs Auto 0.03 X10*3/uL (0.00-0.03); Imm Gran Pct Auto 0.4 % (0.0-0.4); Lymphocytes Absolute Auto 2.4 X10*3/uL (1.2-4.9); Lymphocytes Percent Auto 34.1 % (20-40); Mean Corpuscular Hemoglobin 26.5 pg (27.0-33.0); Mean Corpuscular Volume 85.4 fL (80.0-98.0); Mean Platelet Volume 9.4 fL (9.4-12.3); Monocytes Absolute Auto 0.6 X10*3/uL (0.1-1.2); Monocytes Percent Auto 7.9 % (2-11); Neutrophils Absolute Auto 3.9 x10*3/uL (2.0-8.3); Neutrophils Percent Auto 55.4 % (45-73); Platelet Count 382 X10*3/uL (160-400); Red Blood Count 4.38 X10*6/uL (4.20-5.50); Red Cell Distribution Width 15.4 % (11.0-16.0)
[2024-11-06 10:35] LABS: Anion Gap 13 (12-20); Blood Urea Nitrogen 29 mg/dL (9-16); Calcium 9.5 mg/dL (8.4-10.2); Carbon Dioxide 25 mmol/L (22-29); Chloride 110 mmol/L (96-108); Estimated Glomerular Filt Rate 26; Glucose Random 92 mg/dL (60-115); Potassium 4.2 mmol/L (3.3-5.1); Sodium 144 mmol/L (135-145)
== END 2024-11-06 08:55 | disposition home or self-care (01) ==
LOC: HO.LAB 08:54
PROVIDERS: PCP Internal Medicine; Visit Provider Internal Medicine Hypertension Specialist
DX: N18.4 Chronic kidney disease, stage 4 (severe) (principal); D63.1 Anemia in chronic kidney disease
CPT/HCPCS: 36415; 80048; 85025

== ENCOUNTER 2024-12-06 10:01 | Emergency (ER) | payer OTHER, SELFPAY ==
--- NOTE | ~2024-12-06 | CT_ITS ---
EXAMINATION: CT ABDOMEN AND PELVIS WITHOUT CONTRAST CLINICAL INFORMATION: Upper abdominal pain. COMPARISON: February 08, 2024 TECHNIQUE: Multidetector volumetric imaging was performed from the superior aspect of the liver through the pubic symphysis. Sagittal and coronal reformatted images were obtained on the technologist's workstation. This CT examination was performed using dose optimization techniques as appropriate, variously including the following: *Automated exposure control *Adjustment of mA and/or kV according to patient size (this includes techniques or standardized protocols for targeted exams where dose is matched to indication/reason for exam; i.e. extremities or head) *Use of iterative reconstruction technique. DLP: 711 mGy centimeter. FINDINGS: Inadequate evaluation of the intra-abdominal organs and vascular structures due to lack of contrast. LUNG BASES: Atelectasis versus scarring, lung bases. 1 mm pulmonary nodule in the periphery of the left lung base. LIVER, GALLBLADDER, AND BILIARY TREE: Liver measures 14 cm. No pericholecystic fluid collection or gallbladder wall thickening. No intrahepatic or extrahepatic biliary ductal dilatation. PANCREAS: No peripancreatic fluid collection. No main pancreatic ductal dilatation. SPLEEN: 8 cm. Small accessory spleen. ADRENAL GLANDS: No nodular lesions. KIDNEYS AND URETERS: Right kidney: No hydronephrosis. No nephrolithiasis. Extrarenal pelvis. 12 mm hypodensity in the posterior midportion. Left kidney: No hydronephrosis. No nephrolithiasis. 9 mm hypodensity in the anterior lower pole. BLADDER: Fluid-filled. GASTROINTESTINAL TRACT: Appendix is normal. No intestinal obstruction pattern. Gas and fluid-filled mildly prominent small bowel loops without wall thickening. No ascites. No pneumoperitoneum. No pneumatosis intestinalis. Small hiatal hernia.. ABDOMINAL WALL: Small fat-containing umbilical hernia. LYMPH NODES: Normal. VASCULAR: Calcified plaques in the aortic valve, descending thoracic aorta, coronary arteries, abdominal aorta, iliac arteries. No aneurysm, abdominal aorta. PELVIC VISCERA: Multifocal partially calcified uterine fibroids in the myometrium and likely subserosal. OSSEOUS STRUCTURES: No acute fracture or gross listhesis. No acute fracture in the bony pelvis. No acute fracture or dislocation in either hip. CT/CT abdomen pelvis wo IV con IMPRESSION: No hydronephrosis or nephrolithiasis. Multifocal partially calcified uterine fibroids. Atherosclerosis disease and coronary artery disease. Small fat-containing umbilical hernia. Small hiatal hernia.. Fleischner guidelines were followed. Electronically signed by: Kavon Guo MD 12/06/2024 01:59 PM [facility]
[2024-12-06 10:06] VITALS: BP 128/68; PULSE 100; O2SAT 97
[2024-12-06 10:10] VITALS: BP 131/58; PULSE 99; RESP 16; TEMP 36.4; O2SAT 98; BMI 33.5
--- NOTE | 2024-12-06 10:16 | ECG_ITS ---
Test Reason : EPIGASTRIC PAIN Blood Pressure : */* mmHG Vent. Rate : 101 BPM Atrial Rate : 101 BPM P-R Int : 146 ms QRS Dur : 78 ms QT Int : 340 ms P-R-T Axes : 31 -22 16 degrees QTcB Int : 440 ms Sinus tachycardia Minimal voltage criteria for LVH, may be normal variant ( R in aVL ) Borderline ECG When compared with ECG of 07-Nov-2023 07:59, No significant change was found Referred By: Generic ED Physician Electronically Signed By: GIFTY NEAL MD
[2024-12-06 10:26] LABS: Basophils Percent Auto 0.4 % (0-2); Eosinophils Absolute Auto 0.1 X10*3/uL (0.0-0.4); Eosinophils Percent Auto 0.8 % (0-4); Hematocrit 41.2 % (37.0-47.0); Hemoglobin 12.5 g/dl (12.0-16.0); Imm Gran Abs Auto 0.04 X10*3/uL (0.00-0.03); Imm Gran Pct Auto 0.4 % (0.0-0.4); Lymphocytes Absolute Auto 0.5 X10*3/uL (1.2-4.9); Lymphocytes Percent Auto 4.9 % (20-40); MANUAL DIFF FLAG SCAN; Mean Corpuscular HGB Conc 30.3 g/dl (31.0-35.0); Mean Corpuscular Volume 85.8 fL (80.0-98.0); Mean Platelet Volume 9.1 fL (9.4-12.3); Monocytes Absolute Auto 0.3 X10*3/uL (0.1-1.2); Monocytes Percent Auto 3.3 % (2-11); Neutrophils Absolute Auto 8.8 x10*3/uL (2.0-8.3); Neutrophils Percent Auto 90.2 % (45-73); Platelet Count 367 X10*3/uL (160-400); Red Cell Distribution Width 15.7 % (11.0-16.0); SCAN SMEAR FLAG 1; White Blood Count 9.8 X10*3/uL (4.8-10.8)
--- NOTE | 2024-12-06 10:55 | ED.NAVMDI ---
HPI - Nausea/Vomiting/Diarrhea General Chief complaint: Nausea/Vomiting/Diarrhea Stated complaint: UQ PAIN,VOMTING,DIARRHEA PER EMS Time Seen by Provider: 12/06/24 10:41 Source: patient, EMS and reset merchandiser Mode of arrival: EMS Limitations: no limitations History of Present Illness ED Provider: DR. Peterson HPI Narrative: 74-year-old female came in for evaluation of epigastric pain since this morning pain is associated with nausea, vomiting, nonbloody watery diarrhea, no sick contacts, no history of eating contaminated food, no other sick contacts, no recent travel, no recent use of antibiotic, diffuse abdominal pain, pain is more focused to the epigastric area. Never had intra-abdominal surgery. Related Data Home Medications ?Medication ?Instructions ?Recorded ?Confirmed escitalopram oxalate 10 mg tablet 10 mg PO DAILY 05/17/22 10/01/24 aripiprazole 5 mg tablet 5 mg PO DAILY 07/09/22 10/01/24 ipratropium 0.5 mg-albuterol 3 mg 3 ml inhalation QID PRN Shortness 07/25/22 10/01/24 (2.5 mg base)/3 mL nebulization Of Breath soln nebulizers 09/30/23 10/01/24 dronedarone 400 mg tablet (Multaq) 400 mg PO BID 08/07/24 10/01/24 Previous Rx's ?Medication ?Instructions ?Recorded lift recliner #1 ea 01/08/23 polyethylene glycol 3350 17 17 g PO DAILY PRN constipation 30 03/21/23 gram/dose oral powder (Miralax) days #119 grams tamsulosin 0.4 mg capsule (Flomax) 0.4 mg PO DAILY 14 days #14 caps 07/15/23 triamcinolone acetonide 0.5 % 1 appl topical BID #30 grams 07/26/23 topical cream adona pillow seat and cushion #1 ea 09/07/23 fluocinolone acetonide oil 0.01 % 5 drp otic (ear) left BID 7 days 12/01/23 ear drops (DermOtic Oil) #20 mL hydrocortisone 1 % topical cream 1 appl topical TID PRN itching 12/23/23 (Anti-Itch (hydrocortisone)) #28.4 grams mepolizumab 100 mg/mL subcutaneous 100 mg subcut Q4W #1 mL 01/06/24 syringe (Nucala) hand held shower head #1 ea 01/10/24 latex gloves #48 ea 01/10/24 underpads (Bed Underpads) #100 ea 01/10/24 acetaminophen 650 mg 650 mg PO Q8H PRN pain 30 days #90 03/06/24 tablet,extended release tabs air conditioner #1 ea 04/01/24 hydrocortisone 1 % topical cream 1 appl topical BID PRN skin 04/26/24 (Anti-Itch (hydrocortisone)) irritation 2 weeks #28.4 grams losartan 25 mg tablet 25 mg PO DAILY 90 days #90 tabs 05/27/24 non disposable bed pads #10 ea 06/06/24 diltiazem HCl 120 mg 120 mg PO DAILY #90 caps 06/27/24 capsule,extended release 24 hr umeclidinium 62.5 mcg/actuation 1 inh inhalation DAILY 90 days #3 06/28/24 blister powder for inhalation ea (Incruse Ellipta) levothyroxine 25 mcg tablet 25 mcg PO DAILY 90 days #90 tabs 07/04/24 prednisone 5 mg tablet 5 mg PO DAILY #30 tabs 07/19/24 albuterol sulfate 90 mcg/actuation 2 puff PO Q6H PRN for wheezing #18 08/01/24 aerosol inhaler (Ventolin HFA) ea albuterol sulfate 2.5 mg/3 mL 2.5 mg (3 mL) inhalation Q6H PRN 08/09/24 (0.083 %) solution for nebulization shortness of breath or wheezing 30 days #180 mL famotidine 20 mg tablet (Pepcid) 20 mg PO BID PRN gastritis 90 days 08/14/24 #180 tabs omeprazole 40 mg capsule,delayed 40 mg PO DAILY 30 days #30 caps 09/10/24 release fluocinolone acetonide oil 0.01 % 5 drp otic (ear) left BID 7 days 10/01/24 ear drops (DermOtic Oil) #20 mL sennosides 8.6 mg tablet (senna) 8.6 mg PO BEDTIME PRN constipation 10/01/24 30 days #30 tabs incontinence pad, liner, disp #60 ea 10/09/24 quilted wipes #200 ea 10/09/24 betamethasone dipropionate 0.05 % 1 appl topical DAILY PRN skin 10/18/24 topical ointment irritation 2 weeks #15 grams fenofibrate 54 mg tablet 54 mg PO BEDTIME 90 days #90 tabs 10/20/24 cholecalciferol (vitamin D3) 25 25 mcg PO DAILY 90 days #90 caps 10/30/24 mcg (1,000 unit) capsule loratadine 10 mg tablet 10 mg PO DAILY 90 days #90 tabs 10/30/24 rosuvastatin 20 mg tablet 20 mg PO DAILY 90 days #90 tabs 11/10/24 apixaban 5 mg tablet (Eliquis) 5 mg PO BID #60 tabs 11/20/24 loperamide 2 mg capsule (Imodium 2 mg PO Q6H PRN loose stool #10 12/06/24 A-D) caps Allergies Allergy/AdvReac Type Severity Reaction Status Date / Time sulfamethoxazole Allergy Severe Rash Verified 12/06/24 10:15 [From Bactrim] trimethoprim [From Bactrim] Allergy Severe Rash Verified 12/06/24 10:15 levofloxacin [From LEVAQUIN] Allergy Intermediate RASH SOB, Verified 12/06/24 10:15 DIZZYNESS tramadol AdvReac Severe abdominal Verified 12/06/24 10:15 pain, vomiting atorvastatin [Lipitor] AdvReac Intermediate nausea Verified 12/06/24 10:15 codeine [CODEINE] AdvReac Intermediate NAUSEA & Verified 12/06/24 10:15 VOMITING morphine [MORPHINE] AdvReac Intermediate NAUSEA & Verified 12/06/24 10:15 VOMITING pravastatin AdvReac Intermediate myalgia Verified 12/06/24 10:15 rosuvastatin AdvReac Mild myalgia Verified 12/06/24 10:15 Review of Systems Review of Systems: All other systems are reviewed and are negative Constitutional: Reports as per HPI and Reports no additional constitutional complaints Eyes: Reports as per HPI and Reports no additional eye complaints Reports system reviewed and no additional complaints, except as documented Cardiovascular: Reports as per HPI and Reports no additional cardiovascular complaints Respiratory: Reports as per HPI and Reports no additional respiratory complaints Gastrointestinal: Reports as per HPI and Reports no additional gastrointestinal complaints Genitourinary: Reports no additional female genitourinary complaints Musculoskeletal: Reports no additional musculoskeletal complaints Skin/Breast: Reports system reviewed and no additional complaints, except as docu Psychiatric: Reports no additional psychiatric complaints Endocrine: Reports no additional endocrine complaints Hematologic/Lymphatic: Reports no additional hematologic/lymphatic complaints Allergic/Immunologic: Reports no additional allergic/immunologic complaints Reports system reviewed and no additional complaints, except as documented and Reports Abnormal speech present [facility] Past Medical History Medical History Skin cancer CKD (chronic kidney disease) stage 3, GFR 30-59 ml/min Chronic deep vein thrombosis (DVT) Right femoral vein DVT Osteoarthritis of knees, bilateral Mild recurrent major depression Polyarthralgia Osteopenia (~2007) Tubular adenoma of colon (~2009) Breast pain, left Postmenopausal Asthma-COPD overlap syndrome GERD (gastroesophageal reflux disease) HTN (hypertension) Paroxysmal atrial fibrillation (~01/2021) Dyslipidemia Hypothyroidism Pneumonia Eosinophilia Steroid dependent Chronic allergic rhinitis Asthma Surgical History History of right breast biopsy (~1998) History of colonoscopy History of D&C (~2002) History of tubal ligation History of shoulder surgery (~2006) History of nasal polypectomy (~2007) History of knee surgery Family History Family History Father Medical history unknown Mother Alzheimer disease Daughter Lupus Other Arthritis Social History Social History Household Members: None Housing: House Are you a primary critical care clinical nurse specialist to a significant other at home: No Do you presently have visiting nurse or other home services: Yes Alcohol intake: never Patient Tobacco Use Status: Former Tobacco user Tobacco use type: Cigarette e-Cigarette/Vaping Use: Never Used Second Hand Smoke Exposure: No Advance Directives: No Advance Directives Information Provided: Yes Advance Directives Date on File: 11/10/20 service: No Current occupational status: disabled Cognitive needs: Yes (cane) Hearing needs: No Vision needs: Yes (glasses) Physical Exam Vital Signs: Vital Signs: Last Vital Signs Temp 97.8 F 12/06/24 11:34 Pulse 94 12/06/24 11:34 Resp 17 12/06/24 11:34 BP 117/53 L 12/06/24 11:34 Pulse Ox 96 12/06/24 11:34 O2 Del Method Room Air 12/06/24 11:34 BMI result Body Mass Index 33.5 Vital signs have been reviewed and appear to be correct. Blood pressure elevated. Heart rate normal. Respiratory rate normal. Temperature normal. Oxygen saturation normal. Appearance: Alert. Oriented X3. No acute distress. Head: Normal external exam. Normocephalic. Atraumatic. No Clark signs noted. No raccoon eyes noted Eyes: PERRLA. EOMI. Conjunctiva and sclera normal. Eyelids normal. ENT: TM's Normal. Pharynx normal. Uvula midline. Moist mucous membranes. No trismus noted. No drooling noted. No muffled voice noted. Neck: Normal inspection. Neck supple. FROM. No adenopathy. Thyroid Normal. No meningeal signs. No neck mass noted. CVS: Normal heart rate and rhythm. Heart sound normal. No murmurs noted. Pulses normal throughout. Respiratory: No respiratory distress. Painless inspiration. Breath sounds normal. No wheezes/rales/rhonchi noted. Chest nontender. No accessory muscle usage noted or decreased air movement noted. Abdomen: Soft, epigastric tenderness, no rebound tenderness, no guarding. Bowel sounds normal in all 4 quadrants. No distention noted. No organomegaly noted. No visible injury noted. Back: No CVA tenderness. Full range of motion noted. Skin: Skin warm and dry. Normal skin color. Normal skin turgor. No rashes/lesions/lacerations noted. Extremities: No lower extremity edema. Extremities exhibit normal range of motion. Extremities nontender. Neuro: Oriented X 3. Cranial nerve exam: II-XII are grossly intact No motor deficit. No sensory deficit. Reflexes normal. Course Reevaluation(s) Reevaluation #1: Able to tolerate p.o. intake with no nausea or vomiting, patient has been in the emergency department for many hours could not have bowel movement while she is in the emergency department and patient overall feels better. Labs at baseline. CT abdomen pelvis is unremarkable for acute pathology. Time: 16:14 Medications Administered Discontinued Medications Generic Name Dose Route Start Last Admin Trade Name Freq PRN Reason Stop Dose Admin Al Hydroxide/Mg Hydroxide 30 ml 12/06/24 10:50 12/06/24 12:28 Magnesium Hydrox/Alum Hydrox 30 Ml Oral.Susp PO 12/06/24 10:51 30 ml ONCE ONE Administration Famotidine 20 mg 12/06/24 11:52 12/06/24 12:28 Famotidine/Pf 20 Mg/2 Ml Vial IVPUSH 12/06/24 11:53 20 mg ONCE ONE Administration Sodium Chloride 1,000 mls @ 999 mls/hr 12/06/24 14:34 12/06/24 14:44 Ns IV 12/06/24 15:34 999 mls/hr .Q1H1M ONE Administration Loperamide HCl 2 mg 12/06/24 11:52 12/06/24 12:28 Loperamide Hcl 2 Mg Capsule PO 12/06/24 11:53 2 mg ONCE ONE Administration Ondansetron HCl 4 mg 12/06/24 11:52 12/06/24 12:28 Ondansetron Hcl 4 Mg/2 Ml Vial IVPUSH 12/06/24 11:53 4 mg ONCE ONE Administration Medical Decision Making Differential Diagnosis Differential Diagnoses: The differential diagnosis associated with the presentation includes (Gastroenteritis, food poisoning, acute colitis, acute diverticulitis, electrolyte derangement, severe anemia, dehydration, C diff.) Admission/Observation Consideration of admission/observation: Escalation of care including admission/observation considered Lab Data MDM Lab Attestation statement: I reviewed the patient's lab results. 12/06/24 10:20 12/06/24 11:33 Labs: Lab Results 12/06/24 12/06/24 Range/Units 10:20 11:33 WBC 9.8 (4.8-10.8) X10*3/uL RBC 4.80 (4.20-5.50) X10*6/uL Hgb 12.5 (12.0-16.0) g/dl Hct 41.2 (37.0-47.0) % MCV 85.8 (80.0-98.0) fL MCH 26.0 L (27.0-33.0) pg MCHC 30.3 L (31.0-35.0) g/dl RDW 15.7 (11.0-16.0) % Plt Count 367 (160-400) X10*3/uL MPV 9.1 L (9.4-12.3) fL Immature Gran % (Auto) 0.4 (0.0-0.4) % Neut % (Auto) 90.2 H (45-73) % Lymph % (Auto) 4.9 L (20-40) % [place] % (Auto) 3.3 (2-11) % Eos % (Auto) 0.8 (0-4) % Baso % (Auto) 0.4 (0-2) % Lymph # (Auto) 0.5 L (1.2-4.9) X10*3/uL [place] # (Auto) 0.3 (0.1-1.2) X10*3/uL Eos # (Auto) 0.1 (0.0-0.4) X10*3/uL Baso # (Auto) 0.0 (0.0-0.2) X10*3/uL Abs Immat Gran (auto) 0.04 H (0.00-0.03) X10*3/uL Absolute Neuts (auto) 8.8 H (2.0-8.3) x10*3/uL Absolute Nucleated RBC 0.000 (0.0-0.012) X10*3/uL Nucleated RBC % (auto) 0.0 (0.0-0.2) /100WBC Smear Tech's Comments VERIFIED Sodium 141 (135-145) mmol/L Potassium 5.2 H D (3.3-5.1) mmol/L Chloride 110 H (96-108) mmol/L Carbon Dioxide 19 L (22-29) mmol/L Anion Gap 17 (12-20) BUN 31 H (9-16) mg/dL Creatinine 1.93 H (0.5-1.4) mg/dL Estim Creat Clear Calc 26.1 Estimated GFR 25 Random Glucose 131 H (60-115) mg/dL Calcium 9.5 (8.4-10.2) mg/dL Total Bilirubin 0.4 (0.0-1.0) mg/dL AST 22 (5-31) U/L ALT 15 (0-31) U/L Alkaline Phosphatase 68 (39-117) U/L Troponin I High Sens < 2.7 (<3.5-17.0) ng/L Total Protein 7.8 (6.5-8.0) g/dL Albumin 4.2 (3.5-5.0) g/dL Independent Interpretation I performed an independent interpretation of an: CT Scan (Abdomen pelvis:No hydronephrosis or nephrolithiasis. Multifocal partially calcified uterine fibroids. Atherosclerosis disease and coronary artery disease. Small fat-containing umbilical hernia. Small hiatal hernia.. ) Radiology Impression Discussion of test interpretation with radiology: I have reviewed the radiologist's reading. Discharge Plan Discharge Clinical Impression: Diarrhea, Abdominal pain Patient Disposition: Home, Self-Care Instructions: Abdominal Pain (ED) Additional Instructions: Return if worsening of diarrhea, vomiting, or unable to tolerate oral intake. Prescriptions: New loperamide [Imodium A-D] 2 mg capsule 2 mg PO Q6H PRN (Reason: loose stool) Qty: 10 0RF No Action (DME) lift recliner See Rx Instructions .Route .MEDSUPPLY Qty: 1 0RF Rx Instructions: As directed (DME) adona pillow seat and cushion See Rx Instructions .Route .MEDSUPPLY Qty: 1 0RF Rx Instructions: As directed fluocinolone acetonide oil [DermOtic Oil] 0.01 % drops 5 drp otic (ear) left BID 7 Days Qty: 20 0RF Nucala 100 mg/mL syringe 100 mg subcut Q4W Qty: 1 11RF (DME) underpads [Bed Underpads] Pad See Rx Instructions .Route Qty: 100 11RF Rx Instructions: As directed (DME) latex gloves Misc See Rx Instructions .Route Qty: 48 11RF Rx Instructions: Use 1 pair of gloves twice a day (DME) hand held shower head See Rx Instructions .Route .MEDSUPPLY Qty: 1 0RF Rx Instructions: As directed (DME) air conditioner See Rx Instructions .Route .MEDSUPPLY Qty: 1 0RF Rx Instructions: As directed losartan 25 mg tablet 25 mg PO DAILY 90 Days Qty: 90 1RF (DME) non disposable bed pads See Rx Instructions .Route .MEDSUPPLY Qty: 10 0RF Rx Instructions: As directed diltiazem HCl 120 mg capsule,extended release 24hr 120 mg PO DAILY Qty: 90 1RF Incruse Ellipta 62.5 mcg/actuation blister with device 1 inh inhalation DAILY 90 Days Qty: 3 3RF levothyroxine 25 mcg tablet 25 mcg PO DAILY 90 Days Qty: 90 1RF prednisone 5 mg tablet 5 mg PO DAILY Qty: 30 11RF albuterol sulfate [Ventolin HFA] 90 mcg/actuation HFA aerosol inhaler 2 puff PO Q6H PRN (Reason: for wheezing) Qty: 18 12RF albuterol sulfate 2.5 mg /3 mL (0.083 %) solution for nebulization 2.5 mg inhalation Q6H PRN (Reason: shortness of breath or wheezing) 30 Days Qty: 180 11RF famotidine [Pepcid] 20 mg tablet 20 mg PO BID PRN (Reason: gastritis) 90 Days Qty: 180 1RF omeprazole 40 mg capsule,delayed release(DR/EC) 40 mg PO DAILY 30 Days Qty: 30 11RF (DME) incontinence pad, liner, disp Pad See Rx Instructions .Route Qty: 60 11RF Rx Instructions: Use 1 pad twice a day (DME) quilted wipes See Rx Instructions .Route .MEDSUPPLY Qty: 200 12RF Rx Instructions: As directed betamethasone dipropionate 0.05 % ointment 1 appl topical DAILY PRN (Reason: skin irritation) 14 Days Qty: 15 0RF fenofibrate 54 mg tablet 54 mg PO BEDTIME 90 Days Qty: 90 0RF loratadine 10 mg tablet 10 mg PO DAILY 90 Days Qty: 90 3RF cholecalciferol (vitamin D3) 25 mcg (1,000 unit) capsule 25 mcg PO DAILY 90 Days Qty: 90 0RF rosuvastatin 20 mg tablet 20 mg PO DAILY 90 Days Qty: 90 0RF Eliquis 5 mg tablet 5 mg PO BID Qty: 60 5RF ipratropium-albuterol 0.5 mg-3 mg(2.5 mg base)/3 mL solution for nebulization 3 ml inhalation QID PRN (Reason: Shortness Of Breath) tamsulosin [Flomax] 0.4 mg capsule 0.4 mg PO DAILY 14 Days Qty: 14 0RF hydrocortisone [Anti-Itch (HC)] 1 % cream 1 appl topical TID PRN (Reason: itching) Qty: 28.4 0RF polyethylene glycol 3350 [Miralax] 17 gram/dose powder 17 g PO DAILY PRN (Reason: constipation) 30 Days Qty: 119 1RF triamcinolone acetonide 0.5 % cream 1 appl topical BID Qty: 30 0RF hydrocortisone [Anti-Itch (HC)] 1 % cream 1 appl topical BID PRN (Reason: skin irritation) 14 Days Qty: 28.4 0RF acetaminophen 650 mg tablet extended release 650 mg PO Q8H PRN (Reason: pain) 30 Days Qty: 90 0RF aripiprazole 5 mg tablet 5 mg PO DAILY escitalopram oxalate 10 mg tablet 10 mg PO DAILY (DME) nebulizers Misc See Rx Instructions .Route Rx Instructions: As directed Multaq 400 mg tablet 400 mg PO BID Rx Instructions: must administer with a meal/food sennosides [senna] 8.6 mg tablet 8.6 mg PO BEDTIME PRN (Reason: constipation) 30 Days Qty: 30 2RF fluocinolone acetonide oil [DermOtic Oil] 0.01 % drops 5 drp otic (ear) left BID 7 Days Qty: 20 0RF Referrals: Angelique Li MD [Primary Care Provider] - Print Language: Tajik
[2024-12-06 11:03] LABS: SLIDE REVIEW VERIFIED; Troponin-I High Sensitivity < 2.7 ng/L (<3.5-17.0)
[2024-12-06 11:34] VITALS: BP 117/53; PULSE 94; RESP 17; TEMP 36.6; O2SAT 96
[2024-12-06 12:11] LABS: Alanine Aminotransferase 15 U/L (0-31); Albumin Level 4.2 g/dL (3.5-5.0); Alkaline Phosphatase 68 U/L (39-117); Anion Gap 17 (12-20); Aspartate Amino Transferase 22 U/L (5-31); Bilirubin Total 0.4 mg/dL (0.0-1.0); Blood Urea Nitrogen 31 mg/dL (9-16); Calcium 9.5 mg/dL (8.4-10.2); Carbon Dioxide 19 mmol/L (22-29); Chloride 110 mmol/L (96-108); Creatinine Clr Calc Pharmacy 26.1; Estimated Glomerular Filt Rate 25; Glucose Random 131 mg/dL (60-115); Potassium 5.2 mmol/L (3.3-5.1); Sodium 141 mmol/L (135-145); Total Protein 7.8 g/dL (6.5-8.0)
[2024-12-06] MEDS: Famotidine/PF 20 MG/2 ML VIAL IVPUSH (12:28)
[2024-12-06] MEDS: Loperamide HCl 2 MG CAPSULE PO (12:28)
[2024-12-06] MEDS: Magnesium Hydrox/Alum Hydrox 30 ML ORAL.SUSP PO (12:28)
[2024-12-06] MEDS: ondansetron HCL 4 MG/2 ML VIAL IVPUSH (12:28)
--- OUTSIDE RECORDS SUMMARY | 2024-12-06 12:54 | XMS_ITS | Clinical Summary ---
Author Organization [employer] Address [address] [facility] [address] [place] [address] Care Team Providers Care Brusher Name Role Phone Unavailable Primary Care Provider [...] Active Active Problems No known active problems Encounters Date Type Department Care Team Description 11/09/2024 Telephone [facility] ADULT DENTAL [address] [place] [address] Frank Aldridge mail appt slip with address of offfice from Last 3 Months Social History Tobacco Use Types Packs/Day Years [...] Care Team (Late st Contact Info) Description 04/01/2025 10:00 AM EDT Office Visit [facility] ADULT DENTAL [address] [place] [address] Ivy Rosado Health Maintenance Due Date Last Done Comments [...] Tdap) 06/23/2022 06/23/2012 COVID-19 Vaccine ( - season) 2024 Influenza Vaccine (#1) 2024 8, [...] ESTABLISHED PATIENT Routine 05/26/2018 12:00 AM EDT INTRAORAL - COMPLETE SERIES OF RADIOGRAPHIC IMAGES Routine 09/28/2011 12:00 AM EST from Last 3 Months or Most Recently Relevant to Health Maintenance Insurance [facility] - [facility] DENTAL - [facility]
--- OUTSIDE RECORDS SUMMARY | 2024-12-06 12:54 | XMS_ITS | Encounter Summary ---
Author Organization [employer] Address [address] [facility] [address] [place] [address] Care Team Providers Care Waste Machine Operator Name Role Phone Unavailable Primary Care Provider Unavailabl e Reason for Visit * Reason Onset Date Comments mail appt slip with address of offfice Encounter Details Date Type Department Care Team (Late st Contact Info) Description 11/09/2024 Telephone [facility] AD[facility] D[facility] [address] [place] [address] Frank Aldridge mail appt slip with address of offfice Social History Tobacco Use Types Packs/Day Years Used Date Smoking Tobacco: Former Cigarettes Comments Unknown Sex and Gender Information Value Date Recorded Sex Assigned at Female 08/02/2022 10:15 AM EDT Legal Sex Female 10:15 AM EDT Gender Identity Female 08/02/2022 10:15 AM EDT Sexual Orientation Straight 08/02/2022 10 :15 AM EDT documented as of this encounter Miscellaneous Notes * Telephone Encounter - Marii Goff - 11/09/2024 10:12 AM EST Patient is requesting documented in this encounter Plan of Treatment Upcoming Encounters Date Type Department Care Team (Late st Contact Info) Description 04/01/2025 10:00 AM EDT Office Visit [facility] ADULT D[facility] [address] [place] [address] Ivy Rosado documented as of this encounter Visit Diagnoses Not on filedocumented in this encounter
--- OUTSIDE RECORDS SUMMARY | 2024-12-06 12:54 | XMS_ITS | Clinical Summary ---
Author Organization [facility] Address [address] [facility] [address] [place] [address] Phone Care Team Providers Care Tow Boat Captain Name Role Phone Angelique Li MD Primary Care Provider [phone] Allergies Active Allergy Reactions Criticality Noted Date [...] patient's age to complete this topic Insurance [facility] DUAL SNP ([id number]) [facility] DUAL SNP ([id number]) Care Teams Tow Boat Captain Relationship Specialty Start Date End Date Angelique Li MD [address] [facility] [address] [place] [address] PCP - General Internal Medicine 04/07/22
--- OUTSIDE RECORDS SUMMARY | 2024-12-06 12:54 | XMS_ITS | Encounter Summary ---
Author Organization [employer] Address [address] [facility] [address] [place] [address] Care Team Providers Care Falafel Cart Cook Name Role Phone Unavailable Primary Care Provider Unavailabl e Encounter Details Date Type Department Care Team (Late st Contact Info) Description 09/03/2022 Abstract [facility] ADULT [facility] [address] [place] [address] Dental, Provider, DDS Social History Tobacco Use [...] [facility] [address] [place] [address] Ivy Rosado documented as of this encounter Procedures Procedure Name Priority Date/Time Associated Diagnosis Comments 25 MIFL COMPOSITE FILLING Routine 09/03/2022 12:00 AM EST documented in this encounter Visit Diagnoses Not on filedocumented in this encounter
[2024-12-06] MEDS: 0.9 % Sodium Chloride 1,000 ML 999 ML IV (14:44)
== END 2024-12-06 16:48 | disposition home or self-care (01) ==
PROVIDERS: Emergency Provider Emergency Medicine; PCP Internal Medicine
DX: R10.13 Epigastric pain (principal); R11.2 Nausea with vomiting, unspecified; R19.7 Diarrhea, unspecified; R00.0 Tachycardia, unspecified; Z79.899 Other long term (current) drug therapy; Z87.891 Personal history of nicotine dependence
CPT/HCPCS: 36415; 74176; 80053; 84484; 85025; 93005; 96361; 96374; 96375; 99284; J2405

== ENCOUNTER → 2024-12-06 10:16 | Outpatient (BNV) | payer OTHER, SELFPAY | PROVIDERS: Emergency Provider Emergency Medicine; PCP Internal Medicine; Visit Provider Internal Medicine Cardiovascular Disease | DX: R00.0 Tachycardia, unspecified (principal) | CPT/HCPCS: 93010 ==

== ENCOUNTER → 2024-12-06 11:53 | Outpatient (BNV) | payer OTHER, SELFPAY | PROVIDERS: Emergency Provider Emergency Medicine; PCP Internal Medicine; Visit Provider Radiology Diagnostic Radiology | DX: R10.10 Upper abdominal pain, unspecified (principal) | CPT/HCPCS: 74176 ==

== ENCOUNTER 2024-12-11 09:58 | Outpatient (AMB) | payer OTHER, SELFPAY ==
[2024-12-11 10:09] VITALS: BP 140/70; PULSE 86; O2SAT 98; BMI 32.4
--- NOTE | 2024-12-11 10:09 | HO.NEPHOV ---
Vital Signs 12/11/24 10:09 Height 5 ft 3 in Weight 183 lb BMI 32.4 BP 140/70 H Blood Pressure Location Lt brachial Position Sitting Pulse 86 Pulse Source Pulse Oximeter Pulse Oximetry (%) 98 Oxygen Delivery Method Room Air Intake Visit Reasons: CKD/ Conf Pneumatic Riveter Required: No Pneumatic Riveter Services: Pneumatic Riveter Offered & Declined Accompanied by: Self / Same As Patient Allergies sulfamethoxazole [From Bactrim] Allergy (Severe, Verified 12/11/24 10:11) Rash trimethoprim [From Bactrim] Allergy (Severe, Verified 12/11/24 10:11) Rash levofloxacin [From LEVAQUIN] Allergy (Intermediate, Verified 12/11/24 10:11) RASH SOB, DIZZYNESS tramadol Adverse Reaction (Severe, Verified 12/11/24 10:11) abdominal pain, vomiting atorvastatin [Lipitor] Adverse Reaction (Intermediate, Verified 12/11/24 10:11) nausea codeine [CODEINE] Adverse Reaction (Intermediate, Verified 12/11/24 10:11) NAUSEA & VOMITING morphine [MORPHINE] Adverse Reaction (Intermediate, Verified 12/11/24 10:11) NAUSEA & VOMITING pravastatin Adverse Reaction (Intermediate, Verified 12/11/24 10:11) myalgia rosuvastatin Adverse Reaction (Mild, Verified 12/11/24 10:11) myalgia Medication List - Last Reconciled 12/11/24 by Dillan Miller MD acetaminophen ER 650 mg PO Q8H PRN 30 days [adona pillow seat and cushion As directed] [air conditioner As directed] albuterol sulfate 90 mcg/actuation (Ventolin HFA) 2 puffs PO Q6H PRN albuterol sulfate 2.5 mg (3 mL) inhalation Q6H PRN 30 days apixaban (Eliquis) 5 mg PO BID aripiprazole 5 mg PO DAILY betamethasone dipropionate 0.05% 1 appl topical DAILY PRN 2 weeks cholecalciferol (vitamin D3) 25 mcg PO DAILY 90 days diltiazem HCl CD 120 mg PO DAILY dronedarone (Multaq) 400 mg PO BID escitalopram oxalate 10 mg PO DAILY famotidine (Pepcid) 20 mg PO BID PRN 90 days fenofibrate 54 mg PO BEDTIME 90 days fluocinolone acetonide oil 0.01% (DermOtic Oil) 5 drps otic (ear) left BID 7 days [hand held shower head As directed] hydrocortisone 1% (Anti-Itch (hydrocortisone)) 1 appl topical TID PRN hydrocortisone 1% (Anti-Itch (hydrocortisone)) 1 appl topical BID PRN 2 weeks incontinence pad, liner, disp Use 1 pad twice a day ipratropium-albuterol 0.5 mg-3 mg(2.5 mg base)/3 mL 3 mL inhalation QID PRN latex gloves Use 1 pair of gloves twice a day levothyroxine 25 mcg PO DAILY 90 days [lift recliner As directed] loperamide (Imodium A-D) 2 mg PO Q6H PRN loratadine 10 mg PO DAILY 90 days losartan 25 mg PO DAILY 90 days mepolizumab (Nucala) 100 mg subcut Q4W nebulizers As directed [non disposable bed pads As directed] omeprazole 40 mg PO DAILY 30 days polyethylene glycol 3350 (Miralax) 17 grams PO DAILY PRN 30 days prednisone 5 mg PO DAILY [quilted wipes As directed] rosuvastatin 20 mg PO DAILY 90 days sennosides (senna) 8.6 mg PO BEDTIME PRN 30 days tamsulosin (Flomax) 0.4 mg PO DAILY 14 days triamcinolone acetonide 0.5% 1 appl topical BID umeclidinium 62.5 mcg/actuation (Incruse Ellipta) 1 inh inhalation DAILY 90 days underpads (Bed Underpads) As directed HPI Comments Details: 71 yo woman with history of Afib on Eliquis, DVTs, CKD, HTN, severe asthma/COPD on chronic prednisone and monthly infusions of Nucala , GERD, hypothyroidism, HLD She is here today for follow-up regarding CKD and hypertension. She seems compliant with her medications. Pneumatic Riveter service was used today. No specific complaints today. No headache nausea vomiting. No shortness of breath. No urinary symptoms. 12/11/24 Last week in ER fo diarrhea- resolved [facility] [place] Medical History Skin cancer CKD (chronic kidney disease) stage 3, GFR 30-59 ml/min Chronic deep vein thrombosis (DVT) Right femoral vein DVT Osteoarthritis of knees, bilateral Mild recurrent major depression Polyarthralgia Osteopenia (~2007) Tubular adenoma of colon (~2009) Breast pain, left Postmenopausal Asthma-COPD overlap syndrome GERD (gastroesophageal reflux disease) HTN (hypertension) Paroxysmal atrial fibrillation (~01/2021) Dyslipidemia Hypothyroidism Pneumonia Eosinophilia Steroid dependent Chronic allergic rhinitis Asthma Surgical History History of right breast biopsy (~1998) History of colonoscopy History of D&C (~2002) History of tubal ligation History of shoulder surgery (~2006) History of nasal polypectomy (~2007) History of knee surgery Family History Father Medical history unknown Mother Alzheimer disease Daughter Lupus Other Arthritis Social History Household Members: None Housing: House Are you a primary career resource technician to a significant other at home: No Do you presently have visiting nurse or other home services: Yes Alcohol intake: never Patient Tobacco Use Status: Former Tobacco user Tobacco use type: Cigarette e-Cigarette/Vaping Use: Never Used Second Hand Smoke Exposure: No Advance Directives Date on File: 11/10/20 service: No Current occupational status: disabled Cognitive needs: Yes (cane) Hearing needs: No Vision needs: Yes (glasses) Physical Exam Vital Signs: Last Vital Signs Pulse 86 12/11/24 10:09 BP 140/70 H 12/11/24 10:09 Pulse Ox 98 12/11/24 10:09 Oxygen Delivery Method Room Air 12/11/24 10:09 BMI result Body Mass Index 32.4 Const General: comfortable; No acute distress Orientation/consciousness: patient oriented x3 Eyes General: appearance normal, both eyes and all related structures Visual Macedo: normal visual macedo by confrontation Neck Neck: Yes supple and Yes no JVD Resp Effort & Inspection: normal respiratory effort and respiratory effort not decreased Cardio Palpation: no palpable S3 and no palpable S4 Heart sounds: no rubs GI Inspection: Yes normal to inspection Palpation (GI): Soft to palpation Percussion: Yes normal to percussion Auscultation: normal bowel sounds General: Yes no CVA tenderness Back/Spine/Pelvis Back: no CVA tenderness Skin General skin exam: no petechiae and no purpura Neuro General: patient oriented x3 and no focal motor deficits Extrem General: No clubbing and No edema Results Reviewed Nephrology Results: Hgb 12.5 g/dl (12.0-16.0) 12/06/24 WBC 9.8 X10*3/uL (4.8-10.8) 12/06/24 Plt Count 367 X10*3/uL (160-400) 12/06/24 Sodium 141 mmol/L (135-145) 12/06/24 Potassium 5.2 mmol/L (3.3-5.1) H 12/06/24 Chloride 110 mmol/L (96-108) H 12/06/24 Carbon Dioxide 19 mmol/L (22-29) L 12/06/24 BUN 31 mg/dL (9-16) H 12/06/24 Creatinine 1.93 mg/dL (0.5-1.4) H 12/06/24 Calcium 9.5 mg/dL (8.4-10.2) 12/06/24 Assessment & Plan Assessment & Plan (1) CKD (chronic kidney disease) stage 3, GFR 30-59 ml/min: Code(s): N18.30 - Chronic kidney disease, stage 3 unspecified Category: Medical (2) HTN (hypertension): Code(s): I10 - Essential (primary) hypertension Category: Medical (3) CKD (chronic kidney disease) stage 4, GFR 15-29 ml/min: Code(s): N18.4 - Chronic kidney disease, stage 4 (severe) Category: Medical (4) Anemia in chronic kidney disease: Code(s): N18.9 - Chronic kidney disease, unspecified; D63.1 - Anemia in chronic kidney disease Category: Medical Qualifiers: Chronic kidney disease stage: stage 4 (severe) Qualified Code(s): N18.4 - Chronic kidney disease, stage 4 (severe); D63.1 - Anemia in chronic kidney disease Plan . 74-year-old woman with a history of asthma and hypertension with CKD IIIb. The EGFR is around 25- 35 mL/minute. blood pressure is better controlledl She has minimal proteinuria. Urinary sediments are benign. Sona probably has underlying hypertensive nephrosclerosis. Recommendations include Stay on low-sodium diet. Increase p.o. fluid intake. Maintain blood pressure less than 130/80 mm Hg. Continue to avoid nephrotoxic agents including NSAIDs. Continue to monitor renal function closely along with urine protein excretion.- which has improved Serologies negative No absolute indication for biopsy at this time. Orders: Orders Basic Metabolic Panel 3 Months N18.4 - Chronic kidney disease, stage 4 (severe) Phosphorus 3 Months N18.4 - Chronic kidney disease, stage 4 (severe) Parathyroid Hormone Intact 3 Months N18.4 - Chronic kidney disease, stage 4 (severe) Complete Blood Count no Diff 3 Months N18.4 - Chronic kidney disease, stage 4 (severe) Coding Level of Care Code Est Pt Level 4 (35140) Diagnoses CKD (chronic kidney disease) stage 3, GFR 30-59 ml/min N18.30 HTN (hypertension) I10 CKD (chronic kidney disease) stage 4, GFR 15-29 ml/min N18.4 Anemia in stage 4 chronic kidney disease N18.4; D63.1 Chronic kidney disease stage: stage 4 (severe)
--- OUTSIDE RECORDS SUMMARY | 2024-12-11 11:32 | XMS_ITS | Encounter Summary ---
Author Organization [employer] Address [address] [facility] [address] [place] [address] Care Team Providers Care Browning Processor Name Role Phone Unavailable Primary Care Provider Unavailabl e Reason for Visit * Reason Onset Date Comments mail appt slip with address of offfice Encounter Details Date Type Department Care Team (Late st Contact Info) Description 11/09/2024 Telephone [facility] ADULT DENTAL [address] [place] [address] Frank Aldridge mail appt slip with address [...] Description 04/01/2025 10:00 AM EDT Office Visit [facility] ADULT D[facility]AL [address] [place] [address] Ivy Rosado documented as of this encounter Visit Diagnoses Not on filedocumented in this encounter
--- OUTSIDE RECORDS SUMMARY | 2024-12-11 11:32 | XMS_ITS | Clinical Summary ---
Author Organization [employer] Address [address] [facility] [address] [place] [address] Care Team Providers Care Box Office Clerk Name Role Phone Unavailable Primary Care Provider [...] Type Department Care Team Description 11/09/2024 Telephone [facility] ADULT DENTAL [address] [place] [address] Frank Aldridge mail appt slip with address [...] Description 04/01/2025 10:00 AM EDT Office Visit [facility] ADULT DENTAL [address] [place] [address] Ivy Rosado Health Maintenance Due Date Last [...] Most Recently Relevant to Health Maintenance Insurance [facility] - [facility]
--- OUTSIDE RECORDS SUMMARY | 2024-12-11 11:32 | XMS_ITS | Encounter Summary ---
Author Organization [employer] Address [address] [facility] [address] [place] [address] Care Team Providers Care Residential Concierge Name Role Phone Unavailable Primary Care Provider Unavailabl e Encounter Details Date Type Department Care Team (Late st Contact Info) Description 09/03/[address] [facility] ADULT DENTAL [address] [place] [address] Dental, Provider, DDS Social History Tobacco Use [...] Description 04/01/2025 10:00 AM EDT Office Visit [facility] ADULT [facility] [address] [place] [address] Ivy Rosado documented as of this encounter Procedures Procedure Name Priority Date/Time Associated Diagnosis Comments 25 MIFL COMPOSITE FILLING Routine 09/03/2022 12:00 AM EST documented in this encounter Visit Diagnoses Not on filedocumented in this encounter
--- OUTSIDE RECORDS SUMMARY | 2024-12-11 11:32 | XMS_ITS | Clinical Summary ---
Author Organization [facility] Address [address] [facility] [address] [place] [address] Phone Care Team Providers Care Accounting Tutor Name Role Phone Angelique Li MD Primary Care Provider [phone] Allergies Active Allergy Reactions Criticality Noted Date [...] patient's age to complete this topic Insurance [facility] DUAL SNP ([id number]) [facility] CARE DUAL SNP ([id number]) Care Teams Accounting Tutor Relationship Specialty Start Date End Date Angelique Li MD [address] [facility] [address] [place] [address] PCP - General Internal Medicine 04/07/22
== END 2024-12-11 10:22 | disposition home or self-care (01) ==
LOC: HO.HKA 09:58
PROVIDERS: PCP Internal Medicine; Visit Provider Internal Medicine Hypertension Specialist
DX: I12.9 Hypertensive chronic kidney disease with stage 1 through stage 4 chronic kidney disease, or unspecified chronic kidney disease (principal); N18.30 Chronic kidney disease, stage 3 unspecified; N18.4 Chronic kidney disease, stage 4 (severe); D63.1 Anemia in chronic kidney disease
CPT/HCPCS: 99214

== ENCOUNTER → 2024-12-11 09:58 | Outpatient (BNVA) | payer OTHER, SELFPAY | PROVIDERS: PCP Internal Medicine; Visit Provider Internal Medicine Hypertension Specialist | DX: I12.9 Hypertensive chronic kidney disease with stage 1 through stage 4 chronic kidney disease, or unspecified chronic kidney disease (principal); N18.4 Chronic kidney disease, stage 4 (severe); D63.1 Anemia in chronic kidney disease | CPT/HCPCS: 99212 ==

== ENCOUNTER 2024-12-19 08:56 | Outpatient (REF) | payer OTHER, SELFPAY ==
[2024-12-19 09:33] LABS: MANUAL DIFF FLAG NO
[2024-12-19 10:36] LABS: Basophils Absolute Auto 0.1 X10*3/uL (0.0-0.2); Basophils Percent Auto 0.8 % (0-2); Eosinophils Absolute Auto 0.1 X10*3/uL (0.0-0.4); Eosinophils Percent Auto 0.9 % (0-4); Hematocrit 37.8 % (37.0-47.0); Hemoglobin 11.7 g/dl (12.0-16.0); Imm Gran Abs Auto 0.03 X10*3/uL (0.00-0.03); Imm Gran Pct Auto 0.5 % (0.0-0.4); Lymphocytes Absolute Auto 2.5 X10*3/uL (1.2-4.9); Lymphocytes Percent Auto 38.7 % (20-40); Mean Corpuscular Hemoglobin 26.1 pg (27.0-33.0); Mean Corpuscular Volume 84.2 fL (80.0-98.0); Mean Platelet Volume 9.2 fL (9.4-12.3); Monocytes Absolute Auto 0.5 X10*3/uL (0.1-1.2); Monocytes Percent Auto 7.3 % (2-11); Neutrophils Absolute Auto 3.4 x10*3/uL (2.0-8.3); Neutrophils Percent Auto 51.8 % (45-73); Platelet Count 373 X10*3/uL (160-400); Red Blood Count 4.49 X10*6/uL (4.20-5.50); Red Cell Distribution Width 15.6 % (11.0-16.0); White Blood Count 6.6 X10*3/uL (4.8-10.8)
[2024-12-19 11:03] LABS: Calcium 9.2 mg/dL (8.4-10.2); Parathyroid Hormone Intact 127.2 pg/mL (8.7-77.1); Phosphorus 4.1 mg/dL (2.7-4.5)
[2024-12-19 11:33] LABS: Folate 10.3 ng/mL (> or = 4.0); Vitamin B12 248 pg/mL (200-900)
[2024-12-20 15:03] LABS: Calcium, Ionized 5.1 mg/dL (4.7-5.5)
== END 2024-12-19 08:57 | disposition home or self-care (01) ==
LOC: HO.LAB 08:56
PROVIDERS: PCP Internal Medicine; Visit Provider Internal Medicine
DX: D64.9 Anemia, unspecified (principal); E21.3 Hyperparathyroidism, unspecified; D35.1 Benign neoplasm of parathyroid gland; E55.9 Vitamin D deficiency, unspecified; E53.8 Deficiency of other specified B group vitamins; N18.4 Chronic kidney disease, stage 4 (severe)
CPT/HCPCS: 36415; 82306; 82310; 82330; 82607; 82746; 83970; 84100; 85025

== ENCOUNTER 2024-12-26 09:02 | Outpatient (AMB) | payer OTHER, SELFPAY ==
--- NOTE | 2024-12-26 10:00 | MHC.PC.OV ---
Vital Signs 12/26/24 10:11 Height 5 ft 3 in Weight 185 lb BMI 32.8 BP 130/80 Blood Pressure Location Lt brachial Position Sitting Pulse 76 Pulse Source Pulse Oximeter Pulse Oximetry (%) 97 Oxygen Delivery Method Room Air Intake Visit Reasons: Annual Exam Intake Note: Patient here for an annual physical exam Physicist Cryogenics Required: Yes Physicist Cryogenics Language: Commissioning Editor Name: Angelique Valentine MD Information Interpreted: non-clinical & clinical Accompanied by: Self / Same As Patient Allergies sulfamethoxazole [From Bactrim] Allergy (Severe, Verified 12/26/24 10:40) Rash trimethoprim [From Bactrim] Allergy (Severe, Verified 12/26/24 10:40) Rash levofloxacin [From LEVAQUIN] Allergy (Intermediate, Verified 12/26/24 10:40) RASH SOB, DIZZYNESS tramadol Adverse Reaction (Severe, Verified 12/26/24 10:40) abdominal pain, vomiting atorvastatin [Lipitor] Adverse Reaction (Intermediate, Verified 12/26/24 10:40) nausea codeine [CODEINE] Adverse Reaction (Intermediate, Verified 12/26/24 10:40) NAUSEA & VOMITING morphine [MORPHINE] Adverse Reaction (Intermediate, Verified 12/26/24 10:40) NAUSEA & VOMITING pravastatin Adverse Reaction (Intermediate, Verified 12/26/24 10:40) myalgia rosuvastatin Adverse Reaction (Mild, Verified 12/26/24 10:40) myalgia Medication List - Last Reconciled 12/26/24 by Angelique Valentine MD acetaminophen ER 650 mg PO Q8H PRN 30 days [adona pillow seat and cushion As directed] [air conditioner As directed] albuterol sulfate 90 mcg/actuation (Ventolin HFA) 2 puffs PO Q6H PRN albuterol sulfate 2.5 mg (3 mL) inhalation Q6H PRN 30 days apixaban (Eliquis) 5 mg PO BID aripiprazole 5 mg PO DAILY betamethasone dipropionate 0.05% 1 appl topical DAILY PRN 2 weeks cholecalciferol (vitamin D3) 25 mcg PO DAILY 90 days diltiazem HCl CD 120 mg PO DAILY dronedarone (Multaq) 400 mg PO BID escitalopram oxalate 10 mg PO DAILY famotidine (Pepcid) 20 mg PO BID PRN 90 days fenofibrate 54 mg PO BEDTIME 90 days fluocinolone acetonide oil 0.01% (DermOtic Oil) 5 drps otic (ear) left BID 7 days [hand held shower head As directed] hydrocortisone 1% (Anti-Itch (hydrocortisone)) 1 appl topical TID PRN hydrocortisone 1% (Anti-Itch (hydrocortisone)) 1 appl topical BID PRN 2 weeks incontinence pad, liner, disp Use 1 pad twice a day ipratropium-albuterol 0.5 mg-3 mg(2.5 mg base)/3 mL 3 mL inhalation QID PRN latex gloves Use 1 pair of gloves twice a day levothyroxine 25 mcg PO DAILY 90 days [lift recliner As directed] loperamide (Imodium A-D) 2 mg PO Q6H PRN loratadine 10 mg PO DAILY 90 days losartan 25 mg PO DAILY 90 days mepolizumab (Nucala) 100 mg subcut Q4W nebulizers As directed [non disposable bed pads As directed] omeprazole 40 mg PO DAILY 30 days polyethylene glycol 3350 (Miralax) 17 grams PO DAILY PRN 30 days prednisone 5 mg PO DAILY [quilted wipes As directed] rosuvastatin 20 mg PO DAILY 90 days sennosides (senna) 8.6 mg PO BEDTIME PRN 30 days tamsulosin (Flomax) 0.4 mg PO DAILY 14 days triamcinolone acetonide 0.5% 1 appl topical BID umeclidinium 62.5 mcg/actuation (Incruse Ellipta) 1 inh inhalation DAILY 90 days underpads (Bed Underpads) As directed Tobacco use date assessed: 12/26/24 Fall risk assessment: No Falls in past year Last assessed Fall Risk: 12/26/24 Dental Screening Dental Screen Date: 12/26/24 Did you have a dental visit in the last 12 months?: No Did you have a dental problem in the last 6 months where you did not have access to dental care?: No Was dental information given to patient?: Patient has dentist HPI HPI Comments History of Present Illness Details The patient is a 74-year-old female presenting for her annual physical examination. Recently, she was evaluated in the emergency department due to abdominal pain, where an umbilical hernia containing fat was diagnosed. This hernia is asymptomatic but will be evaluated further in a surgical consultation. The patient has a noted history of osteoporosis as of May 2024, without current medication management. The last bone densitometry confirmed the diagnosis at that time. She requires a tetanus booster, her last vaccination being administered in 2011. Chronic kidney disease, currently at stage 4, shows a declining trend in GFR from 26 to 25 alongside marginally elevated potassium at 5.2. Anemia was identified with stable hemoglobin at 11.7, raising no immediate concerns. She maintains treatment for depression with Abilify and atrial fibrillation with Eliquis. Her complaint of persistent dizziness, when moving her head quickly, may be related to the inner ear, requiring further evaluation. She also has asthma-COPD overlap syndrome and steroid dependent follow by pulmonology which has markedly improved with Nucala. 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 - Mammogram completed one year ago. - Bone density screening in 2023 discovered osteoporosis. - Tetanus vaccine is due; last administered in 2011. - Pneumonia vaccination status up-to-date; received after 65 years. - Patient declines influenza and COVID-19 vaccinations. - Discussion regarding diet, specifically avoiding foods high in potassium due to chronic kidney disease. REPLACED BY [facility] Medical History (Updated 12/26/24 @ 12:08 by Angelique Valentine MD) Skin cancer CKD (chronic kidney disease) stage 3, GFR 30-59 ml/min Chronic deep vein thrombosis (DVT) Right femoral vein DVT Osteoarthritis of knees, bilateral Mild recurrent major depression Polyarthralgia Osteopenia (~2007) Tubular adenoma of colon (~2009) Breast pain, left Postmenopausal Asthma-COPD overlap syndrome GERD (gastroesophageal reflux disease) HTN (hypertension) Paroxysmal atrial fibrillation (~01/2021) Dyslipidemia Hypothyroidism Pneumonia Eosinophilia Steroid dependent Chronic allergic rhinitis Asthma Surgical History History of right breast biopsy (~1998) History of colonoscopy History of D&C (~2002) History of tubal ligation History of shoulder surgery (~2006) History of nasal polypectomy (~2007) History of knee surgery Family History Father Medical history unknown Mother Alzheimer disease Daughter Lupus Other Arthritis Social History Household Members: None Housing: House Are you a primary resident care manager rn to a significant other at home: No Do you presently have visiting nurse or other home services: Yes Alcohol intake: never Patient Tobacco Use Status: Former Tobacco user Tobacco use type: Cigarette e-Cigarette/Vaping Use: Never Used Second Hand Smoke Exposure: No Advance Directives Date on File: 11/10/20 service: No Current occupational status: disabled Cognitive needs: Yes (cane) Hearing needs: No Vision needs: Yes (glasses) Questionnaire PHQ-9 Over the last 2 weeks, how often have you been bothered by any of the following problems? 1. Little interest or pleasure in doing things: not at all 2. Feeling down, depressed, or hopeless: several days 3. Trouble falling or staying asleep, or sleeping too much: several days 4. Feeling tired or having little energy: several days 5. Poor appetite or overeating: not at all 6. Feeling bad about yourself - or that you are a failure or have let yourself or your family down: not at all 7. Trouble concentrating on things, such as reading the newspaper or watching television: not at all 8. Moving or speaking so slowly that other people could have noticed. Or the opposite - being so fidgety or restless that you have been moving around a lot more than usual: not at all 9. Thoughts that you would be better off or of hurting yourself in some way: not at all Total score: 3 Depression Screening Interpretation: Positive Depression Screening Follow-up: Existing condition, In treatment, Community Mental Health Worker F/U and Follow-up Visit Requested Depression Screening Done: Yes 23259 - PHQ-9 Billing: Yes Source: Developed by Drs. Mk Zapata, Roseline Pantoja, Nura Bailon and colleagues, with an educational camila from [employer]. Thrive Questionnaire Date Thrive assessed: 12/26/24 I am a: Patient What is your living situation today?: I have a steady place to live Within the past 12 months, did the food you bought not last and you didn't have the money to get more?: Never true Within the past 12 months, did you worry whether your food would run out before you got money to buy more?: Never true Do you have trouble paying for medicines?: No Do you have trouble getting transportation to medical appointments?: No Do you have trouble paying your heating and electricity bill?: No Do you have trouble taking care of your child, family member or friend?: No Do you have trouble with day-to-day activities such as bathing, preparing meals, shopping, managing finances, etc.?: No Are you currently unemployed and looking for a job?: Yes Are you interested in more education?: No Please select the resources that you would like help with: None Currently or been in a relationship where the following occur: No concerns reported THRIVE Score: 0 AUDIT C Alcohol Use Questionnaire (AUDIT-C) 1. How often do you have a drink containing alcohol?: Never Total Score: 0 Score Reviewed/Action Taken: No FABIOLA-7 AMB Questionnaire FABIOLA-7 Date FABIOLA - 7 assessed: 12/26/24 Feeling nervous, anxious, or on edge: 0 = Not at all Not being able to stop or control worryin = Not at all Worrying too much about different things: 0 = Not at all Trouble relaxin = Not at all Being so restless that it is hard to sit still: 0 = Not at all Becoming easily annoyed or irritable: 0 = Not at all Feeling afraid as if something awful might happen: 0 = Not at all Total FABIOLA-7 score (0-4 normal; 5-9 mild; 10-14 moderate; 15-21 severe): 0 Source: Developed by Drs. Mk Zapata, Roseline Pantoja, Nura Bailon and colleagues, with an educational camila from [employer]. FABIOLA-7 Assessment Billing FABIOLA-7 Assessment Tool: FABIOLA-7 Assessment 41894 Review of Systems Const All systems reviewed & are unremarkable except as noted in HPI and below Card Denies chest pain at rest, Denies chest pain with activity, Denies edema, Denies irregular heart rhythm, Denies claudication, Denies dyspnea, Denies dyspnea on exertion, Denies orthopnea, Denies paroxysmal nocturnal dyspnea and Denies slow heart rate Resp Denies cough, Denies dyspnea and Denies dyspnea on exertion GI Denies abdominal pain, Denies change in bowel habits, Denies excessive flatus, Denies nausea and Denies vomiting Denies urinary incontinence, Denies urinary hesitancy and Denies urinary urgency Musc Denies abnormal gait, Denies atrophy, Denies deformity and Denies limited range of motion Skin/Breast Denies bleeding lesions, Denies changing lesions and Denies rash Neuro Denies abnormal gait, Denies behavioral changes and Denies lack of coordination Psych Denies behavioral changes Physical exam (Primary Care) Vital Signs: Last Vital Signs Pulse 76 12/26/24 10:11 BP 130/80 12/26/24 10:11 Pulse Ox 97 12/26/24 10:11 Oxygen Delivery Method Room Air 12/26/24 10:11 BMI result Body Mass Index 32.8 Tobacco/Smoking Status: Tobacco use Status Tobacco use date assessed 12/26/24 12/26/24 10:04 Patient Tobacco Use Status Former Tobacco user 12/26/24 10:04 Tobacco use type Cigarette 12/26/24 10:04 e-Cigarette/Vaping Use Never Used 12/26/24 10:04 PHQ-9: PHQ-9 Score PHQ-9: Total score 3 12/26/24 10:49 Depression Screening Interpretation: Positive Depression Screening Follow-up: Existing condition, In treatment, Community Mental Health Worker F/U and Follow-up Visit Requested Thrive Assessment: Date of Thrive Assessment Date Thrive assessed 12/26/24 12/26/24 10:04 Currently or been in a relationship where the following occur: No concerns reported HENNH Head: Yes normal to inspection, Yes normocephalic and Yes atraumatic Ears: external ears normal Eyes General: appearance normal, both eyes and all related structures Eyelids: Yes eyelids normal Conjunctivae: conjunctivae normal Neck Neck: Yes normal visual inspection and Yes supple Resp Effort & Inspection: normal respiratory effort Auscultation: clear to auscultation bilaterally Cardio Jugular venous distension: no JVD Rate: regular rate Rhythm: regular rhythm Heart sounds: S1 normal heart sound present and S2 normal heart sound present GI Inspection: Yes normal to inspection Palpation (GI): Soft to palpation and nontender Auscultation: normal bowel sounds Skin General skin exam: no rashes or lesions noted Neuro General: no focal motor deficits Extrem General: Yes full ROM Psych Appearance: grossly normal Coding Level of Care Code Est Pt Level 4 (64360) Est Pt Prev Care >65y(54391) Diagnoses Physical exam Z00.00 BPPV (benign paroxysmal positional vertigo) H81.10 Discomfort of left ear H92.02 Umbilical hernia K42.9 CKD (chronic kidney disease) stage 4, GFR 15-29 ml/min N18.4 Hyperparathyroidism E21.3 Mild recurrent major depression F33.0 Paroxysmal atrial fibrillation I48.0 Asthma-COPD overlap syndrome J44.9 Steroid dependent F19.20 Additional Codes FABIOLA-7 Assessment Billing - FABIOLA-7 Assessment Tool: FABIOLA-7 Assessment 24338 ([id number]) PHQ-9 - 78965 - PHQ-9 Billing: Yes ([id number]) Time Spent (min) 40 Assessment & Plan Assessment & Plan (1) Physical exam: Code(s): Z00.00 - Encounter for general adult medical examination without abnormal findings Category: Medical (2) BPPV (benign paroxysmal positional vertigo): Code(s): H81.10 - Benign paroxysmal vertigo, unspecified ear Category: Medical (3) Discomfort of left ear: Code(s): H92.02 - Otalgia, left ear Category: Medical (4) Umbilical hernia: Code(s): K42.9 - Umbilical hernia without obstruction or gangrene Category: Medical (5) CKD (chronic kidney disease) stage 4, GFR 15-29 ml/min: Code(s): N18.4 - Chronic kidney disease, stage 4 (severe) Category: Medical (6) Hyperparathyroidism: Code(s): E21.3 - Hyperparathyroidism, unspecified Category: Medical (7) Mild recurrent major depression: Code(s): F33.0 - Major depressive disorder, recurrent, mild Category: Medical (8) Paroxysmal atrial fibrillation: Onset Date: ~01/2021 Code(s): I48.0 - Paroxysmal atrial fibrillation Category: Medical (9) Asthma-COPD overlap syndrome: Code(s): J44.9 - Chronic obstructive pulmonary disease, unspecified Category: Medical (10) Steroid dependent: Code(s): F19.20 - Other psychoactive substance dependence, uncomplicated Category: Medical Plan Today's focus was on the umbilical hernia and ensuring appropriate surgical consultation. Additionally, we addressed osteoporosis management based on her prior densitometry and vitamin D supplementation will continue. Tetanus booster needs update, last administered in 2011, and current vaccinations were reviewed. The chronic kidney disease requires monitoring of potassium and continuation of appropriate dietary measures. Anemia appears stable with no active intervention required. The dizziness linked to suspected vestibular causes will be assessed further, with referrals under consideration. Medication reviews emphasize minimizing medication side effects across her conditions including depression and Atril fibrillation management. Patient was informed and verbally consented to the use of an ambient scribe for clinic note documentation during this visit. I discussed with the patient the finding of an umbilical hernia noted during her recent emergency visit, and the plan to seek a surgical opinion to assess its potential future course. We covered osteoporosis and recommended maintaining vitamin D intake, considering her diagnosis and baseline status. Vaccination schedules, particularly tetanus and pneumonia, were reviewed, and I informed her about the need for an updated tetanus shot. Chronic kidney disease management emphasizes potassium monitoring, and I reassured her regarding the stable anemia observed. I also explained the dizziness management plan, likely requiring vestibular therapy and potential ENT evaluation. The safety of Tylenol use was confirmed with reference to her medication plan, and I encouraged lifestyle measures beneficial to her heart and lung health. Follow-up recommendations and when to return were discussed comprehensively. Orders: Orders Potassium Today E87.5 - Hyperkalemia Lipid Panel Today E78.5 - Hyperlipidemia, unspecified Thyroid Stimulating Hormone Today E03.9 - Hypothyroidism, unspecified Glucose Fasting Today R73.02 - Impaired glucose tolerance (oral) PT Evaluation and Treatment Today H81.10 - Benign paroxysmal vertigo, unspecified ear MM tomosynthesis screening BI Today Z12.31 - Encounter for screening mammogram for malignant neoplasm of breast Referrals General Surgery Referral K42.9 - Umbilical hernia without obstruction or gangrene Ear/Nose/Throat Referral H92.02 - Otalgia, left ear Cologuard Test Z12.11 - Encounter for screening for malignant neoplasm of colon, Z12.12 - Encounter for screening for malignant neoplasm of rectum Patient Instructions: - Schedule a surgical consultation to evaluate the umbilical hernia. - Update your tetanus vaccine through the pharmacy. - Avoid high potassium foods, such as ripe bananas and orange juice. - Take vitamin D as directed for bone health. - Consider vestibular therapy for dizziness related to potential ear issues. - Continue Tylenol for pain management as needed. - Follow-up with lab tests for cholesterol, thyroid function, and potassium levels as ordered. - Notify healthcare provider if you experience any significant changes in symptoms or health status.
[2024-12-26 10:11] VITALS: BP 130/80; PULSE 76; O2SAT 97; BMI 32.8
== END 2024-12-26 11:10 | disposition home or self-care (01) ==
LOC: HO.HMCH 09:03
PROVIDERS: PCP Internal Medicine; Visit Provider Internal Medicine
DX: Z00.00 Encounter for general adult medical examination without abnormal findings (principal); N18.4 Chronic kidney disease, stage 4 (severe); E21.3 Hyperparathyroidism, unspecified; F33.0 Major depressive disorder, recurrent, mild; I48.0 Paroxysmal atrial fibrillation; J44.9 Chronic obstructive pulmonary disease, unspecified; F19.20 Other psychoactive substance dependence, uncomplicated; H81.12 Benign paroxysmal vertigo, left ear; H92.02 Otalgia, left ear; K42.9 Umbilical hernia without obstruction or gangrene

== ENCOUNTER → 2024-12-26 09:02 | Outpatient (BNVA) | payer OTHER, SELFPAY | PROVIDERS: PCP Internal Medicine; Visit Provider Internal Medicine | DX: Z00.00 Encounter for general adult medical examination without abnormal findings (principal); H81.10 Benign paroxysmal vertigo, unspecified ear; H92.02 Otalgia, left ear; K42.9 Umbilical hernia without obstruction or gangrene; N18.4 Chronic kidney disease, stage 4 (severe); E21.3 Hyperparathyroidism, unspecified; F33.0 Major depressive disorder, recurrent, mild; I48.0 Paroxysmal atrial fibrillation; J44.9 Chronic obstructive pulmonary disease, unspecified; F19.20 Other psychoactive substance dependence, uncomplicated | CPT/HCPCS: 96127; 99212; 99397 ==

== ENCOUNTER 2025-01-28 08:59 | Outpatient (AMB) | payer OTHER, SELFPAY ==
[2025-01-28 09:09] VITALS: BP 136/74; PULSE 74; O2SAT 99; BMI 32.8
--- NOTE | 2025-01-28 09:09 | MHC.OFFVIS ---
Vital Signs 01/28/25 09:09 Height 5 ft 3 in Weight 185 lb BMI 32.8 BP 136/74 Blood Pressure Location Rt brachial Position Sitting Pulse 74 Pulse Source Pulse Oximeter Pulse Oximetry (%) 99 Oxygen Delivery Method Room Air Intake Visit Reasons: Achalasia of cardia Intake Note: NEW PATIENT for initial eval of GERD + dysphagia. Prior hx of colo/egd? 2009 colo w/ Dr. Norman Chief Complaint; C/O epigastric pain, GERD, occasional N+V. Pt denies any current difficulties with BM but has hx of constipation. Pt is not taking miralax or senna anymore as it no longer provided therapeutic effect. Pt also reports not taking omeprazole or famotidine currently as she was confused with how to take the medication per the instructions from her PCP. Custom Studio Coordinator Required: Yes Custom Studio Coordinator Services: Custom Studio Coordinator Present Custom Studio Coordinator Name: [facility] Bola [employer] Cid [id number] Allergies sulfamethoxazole [From Bactrim] Allergy (Severe, Verified 01/28/25 09:23) Rash trimethoprim [From Bactrim] Allergy (Severe, Verified 01/28/25 09:23) Rash levofloxacin [From LEVAQUIN] Allergy (Intermediate, Verified 01/28/25 09:23) RASH SOB, DIZZYNESS tramadol Adverse Reaction (Severe, Verified 01/28/25 09:23) abdominal pain, vomiting atorvastatin [Lipitor] Adverse Reaction (Intermediate, Verified 01/28/25 09:23) nausea codeine [CODEINE] Adverse Reaction (Intermediate, Verified 01/28/25 09:23) NAUSEA & VOMITING morphine [MORPHINE] Adverse Reaction (Intermediate, Verified 01/28/25 09:23) NAUSEA & VOMITING pravastatin Adverse Reaction (Intermediate, Verified 01/28/25 09:23) myalgia rosuvastatin Adverse Reaction (Mild, Verified 01/28/25 09:23) myalgia HPI HPI Achalasia of cardia: Details: 74-year-old female with past medical history of asthma, BPPV, umbilical hernia, hyperkalemia, CIC, osteoporosis, CKD, hypertension, hyperparathyroidism, spinal stenosis, depression, polyarthralgia PAF, dyslipidemia is here today for initial consultation. Last colonoscopy in 2009 tubular adenoma. Patient had no colonoscopy since. Patient reports epigastric pain no matter what she eats. Bowel movements once a week. Was on Senokot 1 tablet daily and was not helpful. Patient reports epigastric pain without dyspepsia, dysphagia or odynophagia. Patient was prescribed omeprazole by her fur scraper, however due to multiple medications patient decided not to take it as it would interfere with her morning thyroid medicine. Patient was given famotidine by her PCP, however states that she is not taking. Patient states that she is on so many medications that she does not want to be taking any extra medications. As mentioned earlier patient has bowel movements once a week. When she has a urge to have a bowel movement patient feels nauseous. No vomiting. Patient denies melena, hematochezia, unintentional weight loss or ribbon like stools. [facility] Medical History Asthma Skin cancer CKD (chronic kidney disease) stage 3, GFR 30-59 ml/min Chronic deep vein thrombosis (DVT) Right femoral vein DVT Osteoarthritis of knees, bilateral Mild recurrent major depression Polyarthralgia Osteopenia (~2007) Tubular adenoma of colon (~2009) Breast pain, left Postmenopausal Asthma-COPD overlap syndrome GERD (gastroesophageal reflux disease) HTN (hypertension) Paroxysmal atrial fibrillation (~01/2021) Dyslipidemia Hypothyroidism Pneumonia Eosinophilia Steroid dependent Chronic allergic rhinitis Surgical History History of right breast biopsy (~1998) History of colonoscopy History of D&C (~2002) History of tubal ligation History of shoulder surgery (~2006) History of nasal polypectomy (~2007) History of knee surgery Family History Father Medical history unknown Mother Alzheimer disease Daughter Lupus Other Arthritis Social History Household Members: None Housing: House Are you a primary director of home care hospice to a significant other at home: No Do you presently have visiting nurse or other home services: Yes Alcohol intake: never Patient Tobacco Use Status: Former Tobacco user Tobacco use type: Cigarette e-Cigarette/Vaping Use: Never Used Second Hand Smoke Exposure: No Advance Directives Date on File: 11/10/20 service: No Current occupational status: disabled Cognitive needs: Yes (cane) Hearing needs: No Vision needs: Yes (glasses) Review of Systems Const Denies weight gain and Denies weight loss ENT Reports no additional complaints, Denies dysphagia and Denies odynophagia Card Reports no additional complaints Resp Reports no additional complaints GI Reports abdominal pain (epigastric), Denies belching, Denies melena, Reports bloating, Denies change in bowel habits, Reports constipation, Denies dysphagia, Denies excessive flatus, Denies dyspepsia, Reports heartburn, Denies diarrhea, Denies loose stools, Reports nausea, Denies odynophagia and Denies vomiting Reports no additional complaints Musc Reports no additional complaints Neuro Reports no additional complaints Psych Reports no additional complaints Endo Reports no additional complaints Physical Exam Const General: healthy appearing, no acute distress and well developed Nutritional Appearance: well nourished and obese Orientation/consciousness: patient oriented x3 Resp Effort & Inspection: normal respiratory effort, able to speak in complete sentences, no tracheal deviation and symmetric chest movement Auscultation: clear to auscultation bilaterally Cardio Rate: regular rate GI Inspection: Yes normal to inspection, No distended and Yes obesity Palpation (GI): Soft to palpation, not firm, nontender and No hepatosplenomegaly present Auscultation: normal bowel sounds General: Yes no CVA tenderness Back/Spine/Pelvis Back: no CVA tenderness Skin General skin exam: elasticity normal, turgor normal and dry skin Neuro General: patient oriented x3 Psych Appearance: grossly normal Mental Status: mental status grossly normal Results Reviewed Results Reviewed: APRIL 19 2024 UPPER GI SERIES WITH BARIUM SWALLOW IMPRESSION: 1. Mild cricopharyngeal achalasia. 2. Mildly disorganized esophageal peristalsis. 3. Small type I hiatal hernia with mild gastroesophageal reflux. Wide open Schatzki's ring. 4. Limited evaluation of the gastric mucosa due to underdistention of the stomach from poor tolerance of the effervescent granules, as well as poor coating of the barium. No obvious masses or ulcerations are seen. CT SCAN OF ABDOMEN AND PELVIS 12/06/2024 IMPRESSION: No hydronephrosis or nephrolithiasis. Multifocal partially calcified uterine fibroids. Atherosclerosis disease and coronary artery disease. Small fat-containing umbilical hernia. Small hiatal hernia.. Assessment & Plan Assessment & Plan (1) GERD (gastroesophageal reflux disease): Code(s): K21.9 - Gastro-esophageal reflux disease without esophagitis Category: Medical Qualifiers: Esophagitis presence: esophagitis presence not specified Qualified Code(s): K21.9 - Gastro-esophageal reflux disease without esophagitis (2) Constipation: Code(s): K59.00 - Constipation, unspecified Qualifiers: Constipation type: chronic idiopathic constipation Qualified Code(s): K59.04 - Chronic idiopathic constipation (3) Postprandial epigastric pain: Code(s): R10.13 - Epigastric pain (4) Postprandial abdominal bloating: Code(s): R14.0 - Abdominal distension (gaseous) Plan Discussed with patient avoiding dietary triggers in late night snacking. Staying upright for minimum 3 hours after meals discussed with patient. 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 Patient will need to be scheduled for upper endoscopy. Currently she does not want to take any PPI. Patient has appointment with Cardiology in 2 days, will speak to physics technical officer to add clearance to disappointment as patient will be also sent for colonoscopy. Patient will start taking senna 2 tablets daily, however if she continues to be constipated patient is to call our office. Follow-up in 3 months, sooner on as needed basis. She is agreeable to this plan and verbalizes understanding of instructions. She was given the opportunity to ask questions and all questions answered. Thank you for allowing me to participate in her care Medications: New sennosides (Natural Senna Laxative) 17.2 mg (2 x 8.6 mg) PO BEDTIME 60 tabs 3RF constipation K59.00 - Constipation, unspecified Discontinued loperamide (Imodium A-D) Discontinued Reason: Patient no longer taking 2 mg PO Q6H PRN 10 caps 0RF loose stool omeprazole Discontinued Reason: Patient no longer taking 40 mg PO DAILY 30 days 30 caps 11RF famotidine (Pepcid) Discontinued Reason: Patient no longer taking 20 mg PO BID 90 days PRN 180 tabs 1RF gastritis Coding Level of Care Code New Pt Level 4 (87491) Diagnoses Gastroesophageal reflux disease, unspecified whether esophagitis present K21.9 Esophagitis presence: esophagitis presence not specified Chronic idiopathic constipation K59.04 Constipation type: chronic idiopathic constipation Postprandial epigastric pain R10.13 Postprandial abdominal bloating R14.0 Time Spent (min) 50 Comment The 5 minutes spent with patient and additional 15 minutes spent reviewing her records he
--- OUTSIDE RECORDS SUMMARY | 2025-01-28 09:44 | XMS_ITS | Encounter Summary ---
Author Organization [employer] Address [address] [facility] 7t [place] [address] Care Team Providers Care Pulp Bleacher Name Role Phone Unavailable Primary Care Provider Unavailabl e Encounter Details Date Type Department Care Team (Late st Contact Info) Description 09/03/2022 Abstract [facility] ADULT D[facility] [address] [place] [address] Dental, Provider, DDS Social History Tobacco Use [...] Description 04/01/2025 10:00 AM EDT Office Visit [facility] [address] [place] [address] Gauri Gonzalez [address] [place] [address] [phone] documented as of this encounter Procedures Procedure Name Priority Date/Time Associated Diagnosis Comments 25 MIFL COMPOSITE FILLING Routine 09/03/2022 12:00 AM EST documented in this encounter Visit Diagnoses Not on filedocumented in this encounter
--- OUTSIDE RECORDS SUMMARY | 2025-01-28 09:44 | XMS_ITS | Encounter Summary ---
Author Organization [employer] Address [address] [facility] 7t [place] [address] Care Team Providers Care Devops Engineer Name Role Phone Unavailable Primary Care Provider Unavailabl e Reason for Visit * Reason Onset Date Comments mail appt slip with address of offfice Encounter Details Date Type Department Care Team (Late st Contact Info) Description 11/09/2024 Telephone [facility] ADULT DENTAL [address] [place] [address] Frank Aldridge mail appt slip with address [...] Description 04/01/2025 10:00 AM EDT Office Visit [facility] ADULT D[facility] [address] [place] [address] Gauri Gonzalez [address] [place] [address] documented as of this encounter Visit Diagnoses Not on filedocumented in this encounter
--- OUTSIDE RECORDS SUMMARY | 2025-01-28 09:44 | XMS_ITS | Clinical Summary ---
Author Organization [employer] Address [address] [facility] 7t [place] [address] Care Team Providers Care Office Nurse Practitioner Name Role Phone Unavailable Primary Care Provider [...] Type Department Care Team Description 11/09/2024 Telephone [facility] ADULT DENTAL [address] [place] [address] Frank Aldridge mail appt slip with address [...] Description 04/01/2025 10:00 AM EDT Office Visit [facility] ADULT D[facility] [address] [place] [address] Gauri Gonzalez [address] [place] [address] Health Maintenance Due Date Last Done Comments [...] or Tdap) 06/23/2022 06/23/2012 COVID-19 Vaccine ( season) 2024 Influenza Vaccine (#1) 2024 8, [...] Most Recently Relevant to Health Maintenance Insurance [facility] INTERMEDIATE OPTIONS (HMO D-SNP) ROBBIE TIPTON [id number] DENTAL [facility]
--- OUTSIDE RECORDS SUMMARY | 2025-01-28 09:44 | XMS_ITS | Clinical Summary ---
Author Organization [facility] Address [address] [facility] [address] [place] [address] Phone Care Team Providers Care Service Tech/Welder Name Role Phone Angelique Li MD Primary Care Provider [phone] Allergies Active Allergy Reactions Criticality Noted Date [...] Comments Breast Cancer Screening 1950 Pneumococcal Vaccine: 50+ Ye ars (1 of 2 - PCV) 1968 Colorectal Cancer Screening: Annual FOBT 1998 Colorectal Cancer Screening: Colonoscopy 1998 Colorectal Cancer Screening: Sigmoidoscopy 1998 Influenza Vaccine (Season Ended) 2025 Hepatitis B Vaccine Aged Out No longe r eligible based on patient's age to complete this topic Insurance [facility] Dual SNP ([id number]) [facility] One Care Dual SNP ([id number]) Care Teams Service Tech/Welder Relationship Specialty Start Date End Date Angelique Li MD 2 [facility] [address] [place] [address] PCP - General Internal Medicine 04/07/22
== END 2025-01-28 09:49 | disposition home or self-care (01) ==
LOC: HO.HGI 09:00
PROVIDERS: PCP Internal Medicine; Visit Provider Nurse Practitioner Family
DX: K21.9 Gastro-esophageal reflux disease without esophagitis (principal); K59.04 Chronic idiopathic constipation; R10.13 Epigastric pain; R14.0 Abdominal distension (gaseous)
CPT/HCPCS: 99204

== ENCOUNTER → 2025-01-28 08:59 | Outpatient (BNVA) | payer OTHER, SELFPAY | PROVIDERS: PCP Internal Medicine; Visit Provider Nurse Practitioner Family | DX: K21.9 Gastro-esophageal reflux disease without esophagitis (principal); K59.04 Chronic idiopathic constipation; R10.13 Epigastric pain; R14.0 Abdominal distension (gaseous) | CPT/HCPCS: 99202 ==

== ENCOUNTER 2025-01-29 09:20 | Outpatient (AMB) | payer OTHER, SELFPAY ==
--- OUTSIDE RECORDS SUMMARY | 2025-01-29 10:14 | XMS_ITS | Encounter Summary ---
Author Organization [employer] Address [address] [facility] 7t [place] [address] Care Team Providers Care Pest Control Applicator Name Role Phone Unavailable Primary Care Provider Unavailabl e Encounter Details Date Type Department Care Team (Late st Contact Info) Description 09/03/2022 Abstract [facility] ADULT DENTAL [address] [place] [address] Dental, Provider, DDS Social History Tobacco Use [...] Description 04/01/2025 10:00 AM EDT Office Visit [facility] ADULT D[facility] [address] [place] [address] Gauri Gonzalez [address] [place] [address] [phone] documented as of this encounter Procedures Procedure Name Priority Date/Time Associated Diagnosis Comments 25 MIFL COMPOSITE FILLING Routine 09/03/2022 12:00 AM EST documented in this encounter Visit Diagnoses Not on filedocumented in this encounter
--- OUTSIDE RECORDS SUMMARY | 2025-01-29 10:14 | XMS_ITS | Clinical Summary ---
Author Organization [employer] Address [address] [facility] 7[address] [place] [address] Care Team Providers Care Industrial Gas Servicer Supervisor Name Role Phone Unavailable Primary Care Provider [...] Type Department Care Team Description 11/09/2024 Telephone [facility] ADULT D[facility]AL [address] [place] [address] Frank Aldridge mail appt slip with address [...] Description 04/01/2025 10:00 AM EDT Office Visit [facility] ADULT DENTAL [address] [place] [address] Gauri Gonzalez [address] [place] [address] Health Maintenance Due Date Last Done [...] Most Recently Relevant to Health Maintenance Insurance [facility] CARE HOME OPTIONS (HMO D-SNP) ROBBIE T[place]TON [id number] DENTAL [facility]
--- OUTSIDE RECORDS SUMMARY | 2025-01-29 10:14 | XMS_ITS | Clinical Summary ---
Author Organization [facility] Address [address] [facility] [address] [place] [address] Phone Care Team Providers Care Operations Advisor Name Role Phone Angelique Li MD Primary Care Provider [phone] Allergies Active Allergy Reactions Criticality Noted Date [...] patient's age to complete this topic Insurance [facility] Dual SNP ([id number]) [facility] One Care Dual SNP ([id number]) Care Teams Operations Advisor Relationship Specialty Start Date End Date Angelique Li MD 2 [facility] [address] [place] [address] PCP - General Internal Medicine 04/07/22
--- OUTSIDE RECORDS SUMMARY | 2025-01-29 10:14 | XMS_ITS | Encounter Summary ---
Author Organization [employer] Address [address] [facility] 7t [place] [address] Care Team Providers Care General Assembler Name Role Phone Unavailable Primary Care Provider Unavailabl e Reason for Visit * Reason Onset Date Comments mail appt slip with address of offfice Encounter Details Date Type Department Care Team (Late st Contact Info) Description 11/09/2024 Telephone [facility] ADULT DENTAL [address] [place] [address] Frank Aldridge mail appt slip with address [...] Description 04/01/2025 10:00 AM EDT Office Visit [facility] ADULT D[facility]AL [address] [place] [address] Gauri Gonzalez [address] [place] [address] documented as of this encounter Visit Diagnoses Not on filedocumented in this encounter
[2025-01-29 10:33] VITALS: BP 120/80; PULSE 74; BMI 28.5
--- NOTE | 2025-01-29 10:33 | MHC.OFFVIS ---
Vital Signs 01/29/25 10:33 Height 5 ft 3 in Weight 160 lb 14.999 oz BMI 28.5 BP 120/80 Blood Pressure Location Lt brachial Position Sitting Pulse 74 Intake Visit Reasons: r/s 08/13-11/06-01/30 1 yr f/u w/ekg Intake Note: 1 year follow-up with ekg hearts doing good It Help Desk Technician Required: No Allergies sulfamethoxazole [From Bactrim] Allergy (Severe, Verified 01/28/25 09:23) Rash trimethoprim [From Bactrim] Allergy (Severe, Verified 01/28/25 09:23) Rash levofloxacin [From LEVAQUIN] Allergy (Intermediate, Verified 01/28/25 09:23) RASH SOB, DIZZYNESS tramadol Adverse Reaction (Severe, Verified 01/28/25 09:23) abdominal pain, vomiting atorvastatin [Lipitor] Adverse Reaction (Intermediate, Verified 01/28/25 09:23) nausea codeine [CODEINE] Adverse Reaction (Intermediate, Verified 01/28/25 09:23) NAUSEA & VOMITING morphine [MORPHINE] Adverse Reaction (Intermediate, Verified 01/28/25 09:23) NAUSEA & VOMITING pravastatin Adverse Reaction (Intermediate, Verified 01/28/25 09:23) myalgia rosuvastatin Adverse Reaction (Mild, Verified 01/28/25 09:23) myalgia Medication List - Last Reconciled 01/29/25 by Alexandro Cortés MD acetaminophen ER 650 mg PO Q8H PRN 30 days [adona pillow seat and cushion As directed] [air conditioner As directed] albuterol sulfate 90 mcg/actuation (Ventolin HFA) 2 puffs PO Q6H PRN albuterol sulfate 2.5 mg (3 mL) inhalation Q6H PRN 30 days apixaban (Eliquis) 5 mg PO BID aripiprazole 5 mg PO DAILY betamethasone dipropionate 0.05% 1 appl topical DAILY PRN 2 weeks cholecalciferol (vitamin D3) 25 mcg PO DAILY 90 days diltiazem HCl CD 120 mg PO DAILY dronedarone (Multaq) 400 mg PO BID escitalopram oxalate 10 mg PO DAILY fenofibrate 54 mg PO BEDTIME 90 days fluocinolone acetonide oil 0.01% (DermOtic Oil) 5 drps otic (ear) left BID 7 days [hand held shower head As directed] hydrocortisone 1% (Anti-Itch (hydrocortisone)) 1 appl topical BID PRN 2 weeks incontinence pad, liner, disp Use 1 pad twice a day ipratropium-albuterol 0.5 mg-3 mg(2.5 mg base)/3 mL 3 mL inhalation QID PRN latex gloves Use 1 pair of gloves twice a day levothyroxine 25 mcg PO DAILY 90 days [lift recliner As directed] loratadine 10 mg PO DAILY 90 days losartan 25 mg PO DAILY 90 days mepolizumab (Nucala) 100 mg subcut Q4W nebulizers As directed [non disposable bed pads As directed] prednisone 5 mg PO DAILY [quilted wipes As directed] rosuvastatin 20 mg PO DAILY 90 days sennosides (Natural Senna Laxative) 17.2 mg (2 x 8.6 mg) PO BEDTIME tamsulosin (Flomax) 0.4 mg PO DAILY 14 days triamcinolone acetonide 0.5% 1 appl topical BID umeclidinium 62.5 mcg/actuation (Incruse Ellipta) 1 inh inhalation DAILY 90 days underpads (Bed Underpads) As directed HPI Comments Details: Sona comes for follow-up. She has not been having a EKGs as planned every 3 months. She comes after a year and half. However she has been doing well from cardiac perspective. She says she has chronic exertional shortness of breath related to asthma/COPD/restrictive pulmonary defect. She has not had any prolonged irregular heartbeat or palpitations. No lightheadedness, syncope. Follows closely with Nephrology. Creatinine clearance in chronic kidney disease stage 4. Patient denies any orthopnea, PND, leg edema. Denies any exertional chest pain. No bleeding issues or neurologic events. [facility] Medical History Asthma Skin cancer CKD (chronic kidney disease) stage 3, GFR 30-59 ml/min Chronic deep vein thrombosis (DVT) Right femoral vein DVT Osteoarthritis of knees, bilateral Mild recurrent major depression Polyarthralgia Osteopenia (~2007) Tubular adenoma of colon (~2009) Breast pain, left Postmenopausal Asthma-COPD overlap syndrome GERD (gastroesophageal reflux disease) HTN (hypertension) Paroxysmal atrial fibrillation (~01/2021) Dyslipidemia Hypothyroidism Pneumonia Eosinophilia Steroid dependent Chronic allergic rhinitis Surgical History History of right breast biopsy (~1998) History of colonoscopy History of D&C (~2002) History of tubal ligation History of shoulder surgery (~2006) History of nasal polypectomy (~2007) History of knee surgery Family History Father Medical history unknown Mother Alzheimer disease Daughter Lupus Other Arthritis Social History Household Members: None Housing: House Are you a primary youth career specialist to a significant other at home: No Do you presently have visiting nurse or other home services: Yes Alcohol intake: never Patient Tobacco Use Status: Former Tobacco user Tobacco use type: Cigarette e-Cigarette/Vaping Use: Never Used Second Hand Smoke Exposure: No Advance Directives Date on File: 11/10/20 service: No Current occupational status: disabled Cognitive needs: Yes (cane) Hearing needs: No Vision needs: Yes (glasses) Review of Systems Const Denies chills, Denies fatigue, Denies fever(s), Denies frequent falls, Denies weakness, Denies weight gain and Denies weight loss ENT Denies dizziness Card Denies chest pain, Denies leg edema, Denies lightheadedness, Denies palpitations, Denies dyspnea, Denies dyspnea on exertion, Denies orthopnea and Denies other (loss of consciousness) Resp Denies cough, Denies dyspnea and Denies dyspnea on exertion GI Denies hematochezia and Denies change in stool character Musc Denies abnormal gait, Denies muscle weakness, Denies numbness, Denies radiating pain into limb and Denies tingling Neuro Denies abnormal gait, Denies dizziness, Denies frequent falls, Denies numbness, Denies tingling and Denies weakness Endo Denies fatigue and Denies palpitations Physical Exam Vital Signs: Last Vital Signs Pulse 74 01/29/25 10:33 BP 120/80 01/29/25 10:33 BMI result Body Mass Index 28.5 Const General: cooperative, healthy appearing, comfortable and no acute distress Orientation/consciousness: patient oriented x3 Neck Neck: Yes normal visual inspection and Yes no JVD Carotids: normal carotid upstroke Resp Effort & Inspection: normal respiratory effort Auscultation: clear to auscultation bilaterally, no crackles, no rales, no rhonchi, no wheezes and diminished lung sounds Cardio Jugular venous distension: no JVD Rate: regular rate Rhythm: regular rhythm Heart sounds: S1 normal heart sound present, S2 normal heart sound present, no gallops, no murmurs and no rubs Peripheral pulses: Peripheral pulses 2+ throughout GI Inspection: Yes normal to inspection Neuro General: patient oriented x3 Extrem General: No clubbing, No cyanosis, Yes pedal edema and Yes other (Bilateral varicosities) Psych Appearance: grossly normal Mental Status: mental status grossly normal Speech and movement: Normal speech and movement present Office Procedures EKG Details: EKG shows normal sinus rhythm with voltage criteria for LVH with Q-waves in lead 3 and AVF most likely due to body habitus and suggestive of pseudo infarct pattern [id number], Complete Assessment & Plan Assessment & Plan (1) Paroxysmal atrial fibrillation: Onset Date: ~01/2021 Code(s): I48.0 - Paroxysmal atrial fibrillation Category: Medical Plan: Highly symptomatic paroxysmal atrial fibrillation this elderly woman which has remained suppressed on Multaq therapy. She has done very well with rhythm control approach and has avoided hospitalization from cardiac perspective. Continue Multaq therapy. However she requires EKGs every 3 months. Will follow-up EKGs every 3 months in the office. Currently on full oral anticoagulation Eliquis at 5 mg b.i.d.. She does have advanced chronic kidney disease although by guidelines on Eliquis therapy she is currently on appropriate dose of Eliquis. I would continue to follow renal function every 3 months. (2) HTN (hypertension): Code(s): I10 - Essential (primary) hypertension Category: Medical Plan: Hypertension which is currently well optimized. No symptoms related to it. Blood pressure is well controlled on current therapy. Importance of good blood pressure control was discussed. No signs or symptoms of heart failure. Her exertional shortness of breath appears to be related to pulmonary parenchymal disease which has been followed by Pulmonary. She was no exertional chest pain that will be concerning for myocardial ischemia although she develops any symptoms or worsening symptoms advised to call my office. Will follow up in the clinic every 3 months for EKG in 1 year with me after echocardiogram. Thank you for allowing me to partake in her care Coding Level of Care Code Est Pt Level 4 (03476) Complex EM visit Add On G2211 Diagnoses Paroxysmal atrial fibrillation I48.0 HTN (hypertension) I10 CPT Codes EKG - CPT: 60722-[id number], Complete ([id number])
== END 2025-01-29 11:16 | disposition home or self-care (01) ==
LOC: HO.HCS 09:22
PROVIDERS: PCP Internal Medicine; Visit Provider Internal Medicine Cardiovascular Disease
DX: I48.0 Paroxysmal atrial fibrillation (principal); I10 Essential (primary) hypertension
CPT/HCPCS: 93010; 99214; G2211

== ENCOUNTER → 2025-01-29 09:20 | Outpatient (BNVA) | payer OTHER, SELFPAY | PROVIDERS: PCP Internal Medicine; Visit Provider Internal Medicine Cardiovascular Disease | DX: I48.0 Paroxysmal atrial fibrillation (principal); I12.9 Hypertensive chronic kidney disease with stage 1 through stage 4 chronic kidney disease, or unspecified chronic kidney disease; N18.4 Chronic kidney disease, stage 4 (severe) | CPT/HCPCS: 93005; 99212 ==

== ENCOUNTER 2025-02-04 09:04 | Outpatient (AMB) | payer OTHER, SELFPAY ==
[2025-02-04 09:06] VITALS: BP 150/70; PULSE 80; O2SAT 99; BMI 33.0
--- NOTE | 2025-02-04 09:06 | MHC.OFFVIS ---
Vital Signs 02/04/25 09:06 Height 5 ft 3 in Weight 186 lb 4.65 oz BMI 33.0 BP 150/70 H Blood Pressure Location Lt brachial Position Sitting Pulse 80 Pulse Source Pulse Oximeter Pulse Oximetry (%) 99 Oxygen Delivery Method Room Air Intake Visit Reasons: Asthma Allergies sulfamethoxazole [From Bactrim] Allergy (Severe, Verified 02/04/25 09:09) Rash trimethoprim [From Bactrim] Allergy (Severe, Verified 02/04/25 09:09) Rash levofloxacin [From LEVAQUIN] Allergy (Intermediate, Verified 02/04/25 09:09) RASH SOB, DIZZYNESS tramadol Adverse Reaction (Severe, Verified 02/04/25 09:09) abdominal pain, vomiting atorvastatin [Lipitor] Adverse Reaction (Intermediate, Verified 02/04/25 09:09) nausea codeine [CODEINE] Adverse Reaction (Intermediate, Verified 02/04/25 09:09) NAUSEA & VOMITING morphine [MORPHINE] Adverse Reaction (Intermediate, Verified 02/04/25 09:09) NAUSEA & VOMITING pravastatin Adverse Reaction (Intermediate, Verified 02/04/25 09:09) myalgia rosuvastatin Adverse Reaction (Mild, Verified 02/04/25 09:09) myalgia HPI Comments Details: The patient is a 74-year-old woman with a known history of 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 She also has had chronic obstructive disease with chronic bronchitis requiring multiple hospitalizations and multiple prednisone tapers. Recently she was tapered off the prednisone and she has had worsening respiratory symptoms. Today she has significant wheezing. Also, she has questions about inhaler she does not feel like the working. Today she is found to have significant wheezing so therefore I will give her Solu-Medrol injection. She was approved for Nucala which I very happy about. She is going to call the infusion center and get that scheduled MIGUELINA in order to start therapy for significant eosinophilic asthma. 03/19/2024 the patient is here for a pulmonary follow-up visit. Her asthma has been very well controlled. She denies any recent exacerbations except back in September when she had RSV. The Nucala injections continue be affecting beneficial. She understands the Nucala is not going to help her for viral infections. Only for allergies. The patient has been on 5 mg of prednisone. When she is tried coming off it she gets very symptomatic with myalgias and fatigue. Likely some component of secondary adrenal insufficiency. Although she is having significant epigastric discomfort with significant reflux disease. She has been on 20 mg of omeprazole. I will go ahead increase that. She will have an endoscopy soon. She may indeed have peptic ulcer disease secondary to her chronic prednisone use. We did talk about ways decreasing the prednisone. I do believe that she should continue to work down to the lowest most effective dose to see if we can minimize her adverse effects. She is going to have her evaluation and she is going to follow-up in the fall and will start working on decreasing her prednisone. 08/01/2024 the patient is here for pulmonary follow-up visit. The patient overall has been doing respiratory status. She continues to respond very well to Nucala. She continues on 5 mg of prednisone. She has not required any additional prednisone at this time. She did have an episode of vertigo recently. She is now better. She was also diagnosed with skin cancer. She needs to follow-up with the fittings finisher or surgeon. In addition to that she is still waiting for her EGD. She still continues to have issues with difficulty swallowing. She continues use her respiratory therapy with good effect. No recent imaging studies reviewed. She does not get any vaccines. Will follow-up in 6-8 months. If she has any issues prior to that she will call for an earlier assessment. 02/04/2025 the patient is here for pulmonary follow-up visit. Overall she is doing well. She continues on the 5 mg prednisone. Continues to respond very well to the Nucala injections. She gets those on a monthly basis. She has not required any prednisone additionally. Although she continues to be on her chronic dose of prednisone 5 mg. She does have issues with her kidneys and also with GI symptoms. I did encourage her to decrease the prednisone to 2.5 mg daily. I am hopeful that she will do better with a smaller dose. If she does not tolerate the lower dose then we can again try going down but potentially a little slower. She is concerned about anesthesia. I did reassure her that from a respiratory status she is doing very well and should be able to tolerate anesthesia well. Therefore the patient may be able to proceed with anesthesia and GI endoscopies without any restrictions. [facility] Medical History Asthma Skin cancer CKD (chronic kidney disease) stage 3, GFR 30-59 ml/min Chronic deep vein thrombosis (DVT) Right femoral vein DVT Osteoarthritis of knees, bilateral Mild recurrent major depression Polyarthralgia Osteopenia (~2007) Tubular adenoma of colon (~2009) Breast pain, left Postmenopausal Asthma-COPD overlap syndrome GERD (gastroesophageal reflux disease) HTN (hypertension) Paroxysmal atrial fibrillation (~01/2021) Dyslipidemia Hypothyroidism Pneumonia Eosinophilia Steroid dependent Chronic allergic rhinitis Surgical History History of right breast biopsy (~1998) History of colonoscopy History of D&C (~2002) History of tubal ligation History of shoulder surgery (~2006) History of nasal polypectomy (~2007) History of knee surgery Family History Father Medical history unknown Mother Alzheimer disease Daughter Lupus Other Arthritis Social History Household Members: None Housing: House Are you a primary career orientation teacher to a significant other at home: No Do you presently have visiting nurse or other home services: Yes Alcohol intake: never Patient Tobacco Use Status: Former Tobacco user Tobacco use type: Cigarette e-Cigarette/Vaping Use: Never Used Second Hand Smoke Exposure: No Advance Directives Date on File: 11/10/20 service: No Current occupational status: disabled Cognitive needs: Yes (cane) Hearing needs: No Vision needs: Yes (glasses) Review of Systems Const Denies chills, Denies fatigue, Denies fever(s), Denies weight gain and Denies weight loss Eyes Reports no additional complaints ENT Denies dizziness Card Denies chest pain, Denies leg edema, Denies lightheadedness, Denies palpitations, Denies dyspnea on exertion, Denies orthopnea and Denies other Resp Reports cough, Denies dyspnea on exertion and Denies wheezing GI Denies hematochezia and Denies change in stool character Reports no additional complaints Musc Denies abnormal gait, Denies muscle weakness, Denies numbness, Denies radiating pain into limb and Denies tingling Skin/Breast Denies rash Neuro Denies abnormal gait, Denies dizziness, Denies numbness and Denies tingling Endo Denies fatigue and Denies palpitations Aller/Immun Denies wheezing Physical Exam Vital Signs: Last Vital Signs Pulse 80 05/05/25 09:06 BP 150/70 H 02/04/25 09:06 Pulse Ox 99 02/04/25 09:06 Oxygen Delivery Method Room Air 02/04/25 09:06 BMI result Body Mass Index 33.0 Const General: healthy appearing and comfortable Nutritional Appearance: obese Orientation/consciousness: oriented to person HEENT Head: Yes normocephalic Neck Neck: Yes supple Chest Chest palpation & inspection: normal inspection of the chest Resp Effort & Inspection: normal respiratory effort Auscultation: clear to auscultation bilaterally Cardio Rate: regular rate Rhythm: regular rhythm Heart sounds: S1 normal heart sound present and S2 normal heart sound present GI Inspection: Yes normal to inspection Palpation (GI): nontender Skin General skin exam: no rashes or lesions noted Neuro General: oriented to person Extrem General: Yes no clubbing, cyanosis or edema Assessment & Plan Assessment & Plan (1) Asthma: Code(s): J45.909 - Unspecified asthma, uncomplicated Category: Medical Qualifiers: Asthma complication type: uncomplicated Asthma persistence: persistent Asthma severity: severe Qualified Code(s): J45.50 - Severe persistent asthma, uncomplicated (2) Steroid dependent: Code(s): F19.20 - Other psychoactive substance dependence, uncomplicated Category: Medical (3) Chronic allergic rhinitis: Code(s): J30.9 - Allergic rhinitis, unspecified Category: Medical (4) Paroxysmal atrial fibrillation: Onset Date: ~01/2021 Code(s): I48.0 - Paroxysmal atrial fibrillation Category: Medical (5) Epigastric pain: Code(s): R10.13 - Epigastric pain Category: Medical (6) Skin cancer: Code(s): C44.90 - Unspecified malignant neoplasm of skin, unspecified Category: Medical Plan Xopenex as needed continue Prednisone 5mg daily reflux diet Omeprazole Awaiting EGD mucinex DM Continue Nucala therapy monthly Claritin as needed Continue anticoagulation with Eliquis decrease prednisone 5mg->2.5mg Follow-up in 6-8 months Medications: New prednisone 2.5 mg PO DAILY 30 tabs 6RF 30 days Coding Level of Care Code Est Pt Level 4 (40831) Complex EM visit Add On G2211 Diagnoses Severe persistent asthma without complication J45.50 Asthma complication type: uncomplicated Asthma persistence: persistent Asthma severity: severe Steroid dependent F19.20 Chronic allergic rhinitis J30.9 Paroxysmal atrial fibrillation I48.0 Epigastric pain R10.13 Skin cancer C44.90 Time Spent (min) 16
--- OUTSIDE RECORDS SUMMARY | 2025-02-04 09:42 | XMS_ITS | Encounter Summary ---
Author Organization [employer] Address [address] [facility] [address] [place] [address] Care Team Providers Care Guest Room Inspector Name Role Phone Unavailable Primary Care Provider Unavailabl e Encounter Details Date Type Department Care Team (Late st Contact Info) Description 09/03/2022 Abstract [facility] ADULT DENTAL [address] [place] [address] Dental, Provider, DDS Social History Tobacco Use [...] Description 04/01/2025 10:00 AM EDT Office Visit [facility] [address] [place] [address] Gauri Gonzalez [address] [place] [address] [phone] documented as of this encounter Procedures Procedure Name Priority Date/Time Associated Diagnosis Comments 25 MIFL COMPOSITE FILLING Routine 09/03/2022 12:00 AM EST documented in this encounter Visit Diagnoses Not on filedocumented in this encounter
--- OUTSIDE RECORDS SUMMARY | 2025-02-04 09:42 | XMS_ITS | Encounter Summary ---
Author Organization [employer] Address [address] [facility] [address] [place] [address] Care Team Providers Care Patrol Mother Name Role Phone Unavailable Primary Care Provider Unavailabl e Reason for Visit * Reason Onset Date Comments mail appt slip with address of offfice Encounter Details Date Type Department Care Team (Late st Contact Info) Description 11/09/2024 Telephone [facility] ADULT DENTAL [address] [place] [address] Frank Aldridge mail appt slip with address [...] Description 04/01/2025 10:00 AM EDT Office Visit [facility] ADULT DENTAL [address] [place] [address] Gauri Gonzalez [address] [place] [address] documented as of this encounter Visit Diagnoses Not on filedocumented in this encounter
--- OUTSIDE RECORDS SUMMARY | 2025-02-04 09:42 | XMS_ITS | Clinical Summary ---
Author Organization [employer] Address [address] [facility] [address] [place] [address] Care Team Providers Care Extractions Technologist Name Role Phone Unavailable Primary Care Provider [...] Type Department Care Team Description 11/09/[address] [facility] ADULT DENTAL [address] [place] [address] Frank Aldridge mail appt slip with address [...] Description 04/01/2025 10:00 AM EDT Office Visit [facility] ADULT DENTAL [address] [place] [address] Gauri Gonzalez [address] [place] [phone] Health Maintenance Due Date Last Done [...] Most Recently Relevant to Health Maintenance Insurance [facility] [employer] (HMO D-SNP) ROBBIE TIPTON [id number] DENTAL [facility]
--- OUTSIDE RECORDS SUMMARY | 2025-02-04 09:42 | XMS_ITS | Clinical Summary ---
Author Organization [facility] Address [address] [facility] [address] [place] [address] Phone Care Team Providers Care Dedicated Driver Name Role Phone Angelique Li MD Primary Care Provider [phone] Allergies Active Allergy Reactions Criticality Noted Date [...] patient's age to complete this topic Insurance [facility] Dual SNP ([id number]) [facility] One Care Dual SNP ([id number]) Care Teams Dedicated Driver Relationship Specialty Start Date End Date Angelique Li MD [address] [facility] [address] [place] [address] PCP - General Internal Medicine 04/07/22
== END 2025-02-04 09:24 | disposition home or self-care (01) ==
LOC: HO.HPS 09:05
PROVIDERS: PCP Internal Medicine; Visit Provider Hospitalist
DX: J45.50 Severe persistent asthma, uncomplicated (principal); F19.20 Other psychoactive substance dependence, uncomplicated; J30.9 Allergic rhinitis, unspecified; I48.0 Paroxysmal atrial fibrillation; R10.13 Epigastric pain; C44.90 Unspecified malignant neoplasm of skin, unspecified
CPT/HCPCS: 99214; G2211

== ENCOUNTER → 2025-02-04 09:04 | Outpatient (BNVA) | payer OTHER, SELFPAY | PROVIDERS: PCP Internal Medicine; Visit Provider Hospitalist | DX: J45.50 Severe persistent asthma, uncomplicated (principal); J30.9 Allergic rhinitis, unspecified; F19.20 Other psychoactive substance dependence, uncomplicated; I48.0 Paroxysmal atrial fibrillation; R10.13 Epigastric pain; C44.90 Unspecified malignant neoplasm of skin, unspecified; Z87.891 Personal history of nicotine dependence | CPT/HCPCS: 99212 ==

== ENCOUNTER 2025-03-21 09:38 | Outpatient (REF) | payer OTHER, SELFPAY ==
[2025-03-21 10:01] LABS: MANUAL DIFF FLAG NO
--- OUTSIDE RECORDS SUMMARY | 2025-03-21 10:34 | XMS_ITS | Clinical Summary ---
Author Organization [facility] Address [address] [facility] [address] [place] [address] Phone Care Team Providers Care Pv Installer Tech Name Role Phone Angelique Li MD Primary Care Provider [phone] Allergies Active Allergy Reactions Criticality Noted Date [...] patient's age to complete this topic Insurance [facility] Dual SNP ([id number]) [facility] One Care Dual SNP ([id number]) Care Teams Pv Installer Tech Relationship Specialty Start Date End Date Angelique Li MD 2 [facility] [address] [place] [address] PCP - General Internal Medicine 04/07/22
[2025-03-21 10:41] LABS: Basophils Absolute Auto 0.1 X10*3/uL (0.0-0.2); Basophils Percent Auto 0.8 % (0-2); Eosinophils Percent Auto 0.7 % (0-4); Hematocrit 37.8 % (37.0-47.0); Hemoglobin 11.4 g/dl (12.0-16.0); Imm Gran Abs Auto 0.02 X10*3/uL (0.00-0.03); Imm Gran Pct Auto 0.3 % (0.0-0.4); Lymphocytes Absolute Auto 1.8 X10*3/uL (1.2-4.9); Lymphocytes Percent Auto 29.9 % (20-40); Mean Corpuscular HGB Conc 30.2 g/dl (31.0-35.0); Mean Corpuscular Volume 86.1 fL (80.0-98.0); Mean Platelet Volume 9.6 fL (9.4-12.3); Monocytes Absolute Auto 0.5 X10*3/uL (0.1-1.2); Monocytes Percent Auto 8.3 % (2-11); Neutrophils Absolute Auto 3.5 x10*3/uL (2.0-8.3); Platelet Count 347 X10*3/uL (160-400); Red Blood Count 4.39 X10*6/uL (4.20-5.50); Red Cell Distribution Width 15.6 % (11.0-16.0); White Blood Count 5.9 X10*3/uL (4.8-10.8)
[2025-03-21 10:45] LABS: Appearance Urine Turbid; Color Urine Yellow; Glucose Urine UA Negative (Negative); Leukocyte Esterase Urine Trace (Negative); Nitrite Urine Negative (Negative); Specific Gravity - Urine 1.015 (1.005-1.025); UMIC TRIGGER UA YES; Urine Blood Negative (Negative); Urine Ketones Trace mg/dL (Negative); Urine Protein 30 (1+) mg/dL (Neg-Trace)
[2025-03-21 10:48] LABS: Bacteria Urine None Seen (None Seen); Hyaline Casts Urine 0-2 /LPF (0-2); RBC Urine 0-2 /HPF (0-2); Squamous Epithelial Cell Urine 0-2 /HPF (0-2); WBC Urine 0-5 /HPF (0-5)
[2025-03-21 11:17] LABS: Parathyroid Hormone Intact 154.5 pg/mL (8.7-77.1)
[2025-03-21 11:29] LABS: Glucose Fasting 83 mg/dL (60-99); Potassium 4.6 mmol/L (3.3-5.1)
[2025-03-21 11:41] LABS: Alanine Aminotransferase 13 U/L (0-31); Albumin Level 4.4 g/dL (3.5-5.0); Alkaline Phosphatase 57 U/L (39-117); Anion Gap 13 (12-20); Aspartate Amino Transferase 22 U/L (5-31); Bilirubin Total 0.3 mg/dL (0.0-1.0); Blood Urea Nitrogen 20 mg/dL (9-16); Calcium 9.6 mg/dL (8.4-10.2); Carbon Dioxide 27 mmol/L (22-29); Chloride 109 mmol/L (96-108); Cholesterol 182 mg/dL (<200); Estimated Glomerular Filt Rate 26; Glucose Fasting 84 mg/dL (60-99); Glucose Random 83 mg/dL (60-115); HDL Cholesterol 70 mg/dL (>40); Iron 54 mcg/dL (30-160); LDL Cholesterol Calculated 90 mg/dL (<100); Percent Iron Saturation 20 % (15-50); Potassium 4.7 mmol/L (3.3-5.1); Sodium 144 mmol/L (135-145); Thyroid Stimulating Hormone 2.97 uIU/mL (0.32-4.0); Total Iron Binding Capacity 273 mcg/dL (228-428); Total Protein 7.3 g/dL (6.5-8.0); Triglycerides 111 mg/dL (<150); Unsaturated Iron Binding 219 ug/dL
[2025-03-21 11:57] LABS: Creatinine Urine 141.42 mg/dL; Total Protein Urine Random 64 mg/dL (<12)
== END 2025-03-21 09:39 | disposition home or self-care (01) ==
LOC: HO.LAB 09:38
PROVIDERS: Absent Provider Internal Medicine; PCP Internal Medicine; Visit Provider Internal Medicine Hypertension Specialist
DX: N18.4 Chronic kidney disease, stage 4 (severe) (principal); E03.9 Hypothyroidism, unspecified; R73.02 Impaired glucose tolerance (oral); D64.9 Anemia, unspecified; E78.5 Hyperlipidemia, unspecified; N18.30 Chronic kidney disease, stage 3 unspecified; E87.5 Hyperkalemia
CPT/HCPCS: 36415; 80048; 80053; 80061; 81001; 82570; 82947; 83540; 83970; 84100; 84132; 84156; 84443; 85025; 85027

== ENCOUNTER 2025-03-25 09:58 | Outpatient (AMB) | payer OTHER, SELFPAY ==
[2025-03-25 10:01] VITALS: BP 138/74; PULSE 88; O2SAT 97; BMI 32.4
--- NOTE | 2025-03-25 10:01 | HO.NEPHOV_ITS ---
Vital Signs 03/25/25 10:01 Height 5 ft 3 in Weight 183 lb BMI 32.4 BP 138/74 Blood Pressure Location Rt brachial Position Sitting Pulse 88 Pulse Source Pulse Oximeter Pulse Oximetry (%) 97 Oxygen Delivery Method Room Air Intake Visit Reasons: 3 MO FU Neonatal Nurse Required: No Neonatal Nurse Services: Neonatal Nurse Offered & Declined Accompanied by: Self / Same As Patient Allergies sulfamethoxazole (From Bactrim) Allergy (Severe, Verified 03/25/25 10:03) Rash trimethoprim (From Bactrim) Allergy (Severe, Verified 03/25/25 10:03) Rash levofloxacin (From LEVAQUIN) Allergy (Intermediate, Verified 03/25/25 10:03) RASH SOB, DIZZYNESS tramadol Adverse Reaction (Severe, Verified 03/25/25 10:03) abdominal pain, vomiting atorvastatin (Lipitor) Adverse Reaction (Intermediate, Verified 03/25/25 10:03) nausea codeine (CODEINE) Adverse Reaction (Intermediate, Verified 03/25/25 10:03) NAUSEA & VOMITING morphine (MORPHINE) Adverse Reaction (Intermediate, Verified 03/25/25 10:03) NAUSEA & VOMITING pravastatin Adverse Reaction (Intermediate, Verified 03/25/25 10:03) myalgia rosuvastatin Adverse Reaction (Mild, Verified 03/25/25 10:03) myalgia Medication List - Last Reconciled 03/25/25 by Dillan Miller MD acetaminophen ER 650 mg PO Q8H PRN 30 days [adona pillow seat and cushion As directed] [air conditioner As directed] albuterol sulfate 90 mcg/actuation (Ventolin HFA) 2 puffs PO Q6H PRN albuterol sulfate 2.5 mg (3 mL) inhalation Q6H PRN 30 days apixaban (Eliquis) 5 mg PO BID aripiprazole 5 mg PO DAILY betamethasone dipropionate 0.05% 1 appl topical DAILY PRN 2 weeks cholecalciferol (vitamin D3) 25 mcg PO DAILY 90 days diltiazem HCl CD 120 mg PO DAILY diphenhydramine HCl (Banophen) 25 mg PO BEDTIME PRN dronedarone (Multaq) 400 mg PO BID escitalopram oxalate 10 mg PO DAILY fenofibrate 54 mg PO BEDTIME 90 days fluocinolone acetonide oil 0.01% (DermOtic Oil) 5 drps otic (ear) left BID 7 days [hand held shower head As directed] hydrocortisone 1% (Anti-Itch (hydrocortisone)) 1 appl topical BID PRN 2 weeks incontinence pad, liner, disp Use 1 pad twice a day ipratropium-albuterol 0.5 mg-3 mg(2.5 mg base)/3 mL 3 mL inhalation QID PRN latex gloves Use 1 pair of gloves twice a day levothyroxine 25 mcg PO DAILY 90 days [lift recliner As directed] loratadine 10 mg PO DAILY 90 days losartan 25 mg PO DAILY 90 days mepolizumab (Nucala) 100 mg subcut Q4W nebulizers As directed [non disposable bed pads As directed] prednisone 5 mg PO DAILY prednisone 2.5 mg PO DAILY 30 days [quilted wipes As directed] rosuvastatin 20 mg PO DAILY 90 days sennosides (Natural Senna Laxative) 17.2 mg (2 x 8.6 mg) PO BEDTIME tamsulosin (Flomax) 0.4 mg PO DAILY 14 days triamcinolone acetonide 0.5% 1 appl topical BID umeclidinium 62.5 mcg/actuation (Incruse Ellipta) 1 inh inhalation DAILY 90 days underpads (Bed Underpads) As directed HPI Comments Details: 71 yo woman with history of Afib on Eliquis, DVTs, CKD, HTN, severe asthma/COPD on chronic prednisone and monthly infusions of Nucala , GERD, hypothyroidism, HLD She is here today for follow-up regarding CKD and hypertension. She seems compliant with her medications. Neonatal Nurse service was used today. No specific complaints today. No headache nausea vomiting. No shortness of breath. No urinary symptoms. 12/11/24 Last week in ER fo diarrhea- resolved 03/25/25 74-year-old female presenting with chronic kidney disease and hypertension. Her kidney function has been stable since last July, and she is advised to maintain adequate hydration to support kidney health. She is on losartan to manage proteinuria, which is part of her chronic kidney disease management plan. The patient also reports knee pain, which has been persistent and severe enough to consider visiting the emergency room for further evaluation. She has attempted to contact her primary care physician but has faced delays in getting an appointment. Her blood pressure is monitored regularly at home by a visiting nurse, and it has been reported as stable and within normal limits. [facility] Medical History Asthma Skin cancer CKD (chronic kidney disease) stage 3, GFR 30-59 ml/min Chronic deep vein thrombosis (DVT) Right femoral vein DVT Osteoarthritis of knees, bilateral Mild recurrent major depression Polyarthralgia Osteopenia (~2007) Tubular adenoma of colon (~2009) Breast pain, left Postmenopausal Asthma-COPD overlap syndrome GERD (gastroesophageal reflux disease) HTN (hypertension) Paroxysmal atrial fibrillation (~01/2021) Dyslipidemia Hypothyroidism Pneumonia Eosinophilia Steroid dependent Chronic allergic rhinitis Surgical History History of right breast biopsy (~1998) History of colonoscopy History of D&C (~2002) History of tubal ligation History of shoulder surgery (~2006) History of nasal polypectomy (~2007) History of knee surgery Family History Father Medical history unknown Mother Alzheimer disease Daughter Lupus Other Arthritis Social History Household Members: None Housing: House Are you a primary rn long term care to a significant other at home: No Do you presently have visiting nurse or other home services: Yes Alcohol intake: never Patient Tobacco Use Status: Former Tobacco user Tobacco use type: Cigarette e-Cigarette/Vaping Use: Never Used Second Hand Smoke Exposure: No Advance Directives Date on File: 11/10/20 service: No Current occupational status: disabled Cognitive needs: Yes (cane) Hearing needs: No Vision needs: Yes (glasses) Physical Exam Vital Signs: Last Vital Signs Pulse 88 03/25/25 10:01 BP 138/74 03/25/25 10:01 Pulse Ox 97 03/25/25 10:01 Oxygen Delivery Method Room Air 03/25/25 10:01 BMI result Body Mass Index 32.4 Const General: comfortable; No acute distress Orientation/consciousness: patient oriented x3 Eyes General: appearance normal, both eyes and all related structures Visual Macedo: normal visual macedo by confrontation Neck Neck: Yes supple and Yes no JVD Resp Effort & Inspection: normal respiratory effort and respiratory effort not decreased Cardio Palpation: no palpable S3 and no palpable S4 Heart sounds: no rubs GI Inspection: Yes normal to inspection Palpation (GI): Soft to palpation Percussion: Yes normal to percussion Auscultation: normal bowel sounds General: Yes no CVA tenderness Back/Spine/Pelvis Back: no CVA tenderness Skin General skin exam: no petechiae and no purpura Neuro General: patient oriented x3 and no focal motor deficits Extrem General: No clubbing and No edema Results Reviewed Nephrology Results: Hgb, (12.0-16.0) 11.4 g/dl L 03/21/25 WBC, (4.8-10.8) 5.9 X10*3/uL 03/21/25 Plt Count, (160-400) 347 X10*3/uL 03/21/25 Sodium, (135-145) 144 mmol/L 03/21/25 Potassium, (3.3-5.1) 4.7 mmol/L 03/21/25 Chloride, (96-108) 109 mmol/L H 03/21/25 Carbon Dioxide, (22-29) 27 mmol/L 03/21/25 BUN, (9-16) 20 mg/dL H 03/21/25 Creatinine, (0.5-1.4) 1.90 mg/dL H 03/21/25 Calcium, (8.4-10.2) 9.6 mg/dL 03/21/25 Phosphorus, (2.7-4.5) 4.0 mg/dL 03/21/25 PTH Intact, (8.7-77.1) 154.5 pg/mL H 03/21/25 Urine Protein, (Neg-Trace) 30 (1+) mg/dL H 03/21/25 Urine Creatinine 141.42 mg/dL 03/21/25 Renal US 07/22/22 Assessment & Plan Assessment & Plan (1) CKD (chronic kidney disease) stage 3, GFR 30-59 ml/min: Code(s): N18.30 - Chronic kidney disease, stage 3 unspecified Category: Medical (2) HTN (hypertension): Code(s): I10 - Essential (primary) hypertension Category: Medical (3) CKD (chronic kidney disease) stage 4, GFR 15-29 ml/min: Code(s): N18.4 - Chronic kidney disease, stage 4 (severe) Category: Medical (4) Anemia in chronic kidney disease: Code(s): N18.9 - Chronic kidney disease, unspecified; D63.1 - Anemia in chronic kidney disease Category: Medical Qualifiers: Chronic kidney disease stage: stage 4 (severe) Qualified Code(s): N18.4 - Chronic kidney disease, stage 4 (severe); D63.1 - Anemia in chronic kidney disease Plan . 74-year-old woman with a history of asthma and hypertension with CKD IIIb. The EGFR is around 25- 35 mL/minute. Blood pressure is better controlledl She has minimal proteinuria. Urinary sediments are benign. Sona probably has underlying hypertensive nephrosclerosis. Recommendations include Stay on low-sodium diet. Increase p.o. fluid intake. Maintain blood pressure less than 130/80 mm Hg. Continue to avoid nephrotoxic agents including NSAIDs. Continue to monitor renal function closely along with urine protein excretion.- which has improved Serologies negative No absolute indication for biopsy at this time. Orders: Orders Basic Metabolic Panel 4 Months N18.4 - Chronic kidney disease, stage 4 (severe) Coding Level of Care Code Est Pt Level 4 (17248) Diagnoses CKD (chronic kidney disease) stage 3, GFR 30-59 ml/min N18.30 HTN (hypertension) I10 CKD (chronic kidney disease) stage 4, GFR 15-29 ml/min N18.4 Anemia in stage 4 chronic kidney disease N18.4; D63.1 Chronic kidney disease stage: stage 4 (severe)
--- OUTSIDE RECORDS SUMMARY | 2025-03-25 10:59 | XMS_ITS | Clinical Summary ---
Author Organization [facility] Address [address] [facility] [place] [address] Phone Care Team Providers Care Private Investigator Name Role Phone Angelique Li MD Primary Care Provider [phone] Allergies Active Allergy Reactions Criticality Noted Date [...] patient's age to complete this topic Insurance [facility] Dual SNP ([id number]) [facility] [employer] Dual SNP ([id number]) Care Teams Private Investigator Relationship Specialty Start Date End Date Angelique Li MD [address] [facility] [address] [place] [address] PCP - General Internal Medicine 04/07/22
== END 2025-03-25 10:14 | disposition home or self-care (01) ==
LOC: HO.HKA 09:59
PROVIDERS: PCP Internal Medicine; Visit Provider Internal Medicine Hypertension Specialist
DX: I12.9 Hypertensive chronic kidney disease with stage 1 through stage 4 chronic kidney disease, or unspecified chronic kidney disease (principal); N18.30 Chronic kidney disease, stage 3 unspecified; N18.4 Chronic kidney disease, stage 4 (severe); D63.1 Anemia in chronic kidney disease
CPT/HCPCS: 99214

== ENCOUNTER → 2025-03-25 09:58 | Outpatient (BNVA) | payer OTHER, SELFPAY | PROVIDERS: PCP Internal Medicine; Visit Provider Internal Medicine Hypertension Specialist | DX: I10 Essential (primary) hypertension (principal); I12.9 Hypertensive chronic kidney disease with stage 1 through stage 4 chronic kidney disease, or unspecified chronic kidney disease; N18.4 Chronic kidney disease, stage 4 (severe); D63.1 Anemia in chronic kidney disease | CPT/HCPCS: 99212 ==

== ENCOUNTER → 2025-03-25 10:11 | Outpatient (BNV) | payer OTHER, SELFPAY | PROVIDERS: Emergency Provider Emergency Medicine; PCP Internal Medicine; Visit Provider Radiology Diagnostic Radiology | DX: M17.11 Unilateral primary osteoarthritis, right knee (principal) | CPT/HCPCS: 73562 ==

== ENCOUNTER 2025-03-25 10:21 | Emergency (ER) | payer OTHER, SELFPAY ==
--- NOTE | ~2025-03-25 | XR_ITS ---
EXAMINATION: XR KNEE, RIGHT CLINICAL INFORMATION: pain, swelling of the right knee COMPARISON: None available. TECHNIQUE: Four views of the right knee. FINDINGS: There is no joint effusion. There is moderate medial compartment and mild to moderate lateral compartment joint space narrowing. Small tricompartmental marginal osteophytes are present. Focal calcification soft tissues posterior that is femur is likely at the junction of distal femoral and proximal popliteal artery. XR/XR knee RT 3V IMPRESSION: Mild to moderate osteoarthritis Electronically signed by: Jason Ng MD 03/25/2025 11:20 AM EDT
[2025-03-25 10:47] VITALS: BP 149/53; PULSE 81; RESP 18; TEMP 36.5; O2SAT 98; BMI 32.1
--- NOTE | 2025-03-25 12:11 | MHC.EDTECH ---
Attempted to scan pt wrist band for labs. Pt stated she is leaving and would like her paper work. Wai Quiroz notified.
--- NOTE | 2025-03-25 12:19 | MHC.EDTECH ---
Discussed with patient on what was told regards wanting to leave vs labs drawn. PT stated she wanted the labs drawn but that was not mentioned. pt stated she thought the can get the labs drawn then go home. she cant wait for the lab results. CYNDY Drake witnessed
--- NOTE | 2025-03-25 12:27 | ED_ITS ---
HPI - Extremity Injury (Lower) General Chief Complaint: Extremity Injury, Lower Stated Complaint: R Knee Pain X 1 Week Time Seen by Provider: 03/25/25 11:27 Source: patient and american sign language interpreter (Japanese) Mode of arrival: ambulatory Limitations: language barrier (Japanese) History of Present Illness ED Provider: EBONI XIONG PA-C HPI Narrative: 74 year old female with pmhx significant for osteoarthritis, GERD, HTN, paroxysmal AFib, HLD, hypothyroidism, asthma/COPD, CKD, anemia presents to the ED today for evaluation of atraumatic right knee pain x1 week. Reports pain primarily to anterior aspect of right knee. No radiation. Denies any injury/trauma/falls. Denies fever, chills, numbness/tingling/weakness of the right lower extremity. Denies history of gout or pseudogout. Denies any overlying skin changes or wounds. Denies recent tick or insect bites. Denies recent travel or long car rides. Denies chest pain or shortness of breath. Denies history of diabetes. Related Data Home Medications ?Medication ?Instructions ?Recorded ?Confirmed escitalopram oxalate 10 mg tablet 10 mg PO DAILY 05/1703/25/25 aripiprazole 5 mg tablet 5 mg PO DAILY 07/09/2203/25 ipratropium 0.5 mg-albuterol 3 mg 3 ml inhalation QID PRN Shortness 07/25/22 03/25/25 (2.5 mg base)/3 mL nebulization Of Breath soln nebulizers 09/30/23 03/25/25 dronedarone 400 mg tablet (Multaq) 400 mg PO BID 08/0703/25/25 diphenhydramine HCl 25 mg tablet 25 mg PO BEDTIME PRN 03/25/25 03/25/25 (Banophen) Previous Rx's ?Medication ?Instructions ?Recorded lift recliner #1 ea 01/08/23 tamsulosin 0.4 mg capsule (Flomax) 0.4 mg PO DAILY 14 days #14 caps 07/15/23 triamcinolone acetonide 0.5 % 1 appl topical BID #30 g corin 07/26/23 topical cream adona pillow seat and cushion #1 ea 09/07/23 fluocinolone acetonide oil 0.01 % 5 drp otic (ear) lef t BID 7 days 12/01/23 ear drops (DermOtic Oil) #20 mL mepolizumab 100 mg/mL subcutaneous 100 mg subcut Q4W # 1 mL 01/06/24 syringe (Nucala) hand held shower head #1 ea 01/10/24 latex gloves #48 ea 01/10/24 underpads (Bed Underpads) #100 ea 01/10/24 acetaminophen 650 mg 650 mg PO Q8H PRN pain 30 da ys #90 03/06/24 tablet,extended release tabs air conditioner #1 ea 04/01/24 hydrocortisone 1 % topical cream 1 appl topical BID PA N skin 04/26/24 (Anti-Itch (hydrocortisone)) irritation 2 weeks #28.4 grams losartan 25 mg tablet 25 mg PO DAILY 90 days #90 t abs 05/27/24 non disposable bed pads #10 ea 06/06/24 umeclidinium 62.5 mcg/actuation 1 inh inhalation DAILY 90 days #3 06/28/24 blister powder for inhalation ea (Incruse Ellipta) prednisone 5 mg tablet 5 mg PO DAILY #30 tabs 07/19 albuterol sulfate 90 mcg/actuation 2 puff PO Q6H PRN f or wheezing #18 08/01/24 aerosol inhaler (Ventolin HFA) ea albuterol sulfate 2.5 mg/3 mL 2.5 mg (3 mL) inhalation Q6H PRN 08/09/24 (0.083 %) solution for nebulization shortness of breat h or wheezing 30 days #180 mL incontinence pad, liner, disp #60 ea 10/09/24 quilted wipes #200 ea 10/09/24 betamethasone dipropionate 0.05 % 1 appl topical DAILY PRN skin 10/18/24 topical ointment irritation 2 weeks #15 grams loratadine 10 mg tablet 10 mg PO DAILY 90 days #90 t abs 10/30/24 rosuvastatin 20 mg tablet 20 mg PO DAILY 90 days #90 t abs 11/10/24 apixaban 5 mg tablet (Eliquis) 5 mg PO BID #60 tabs diltiazem HCl 120 mg 120 mg PO DAILY #90 caps capsule,extended release 24 hr fenofibrate 54 mg tablet 54 mg PO BEDTIME 90 days #90 tabs 01/16/25 cholecalciferol (vitamin D3) 25 25 mcg PO DAILY 90 day s #90 caps 01/26/25 mcg (1,000 unit) capsule sennosides 8.6 mg tablet (Natural 17.2 mg (2 x 8.6 mg) PO BEDTIME 01/28/25 Senna Laxative) constipation #60 tabs prednisone 2.5 mg tablet 2.5 mg PO DAILY 30 days #30 tabs 02/04/25 levothyroxine 25 mcg tablet 25 mcg PO DAILY 90 days #9 0 tabs 03/02/25 diclofenac sodium 1 % topical gel 2 g topical QID PRN pain (scale 03/25/25 (Arthritis Pain (diclofenac)) score 4-6) #100 grams Allergies Allergy/AdvReac Type Severity Reaction Status Date / Time sulfamethoxazole (From Allergy Severe Rash Verified 03/25/25 10:49 Bactrim) trimethoprim (From Bactrim) Allergy Severe Rash Verified 03/25/25 10:49 levofloxacin (From LEVAQUIN) Allergy Intermediate RASH SOB, Verified 03/25/25 10:49 DIZZYNESS tramadol AdvReac Severe abdominal Verified 03/25/25 10:49 pain, vomiting atorvastatin (Lipitor) AdvReac Intermediate nausea Verified 03/25/25 10:49 codeine (CODEINE) AdvReac Intermediate NAUSEA & Verified 03/25/25 10:49 VOMITING morphine (MORPHINE) AdvReac Intermediate NAUSEA & Verified 03/25/25 10:49 VOMITING pravastatin AdvReac Intermediate myalgia Verified 03/25/25 10:49 rosuvastatin AdvReac Mild myalgia Verified 03/25/25 10:49 Review of Systems Review of Systems: Constitutional: No fever, chills, fatigue, night sweats, weight changes ENT/Mouth: No ear pain, hearing loss, nasal congestion, sinus pain, rhinorrhea, sore throat Eyes: No eye pain, swelling, redness, vision changes, discharge Cardio: No chest pain, palpitations, BELL, orthopnea, peripheral edema Pulm: No SOB, cough, sputum, wheezing, dyspnea, hemoptysis GI: No nausea, vomiting, hematemesis, abdominal pain, diarrhea, constipation, hematochezia, melena : No irregular bleeding, dysuria, frequency, urgency, hesitancy, hematuria, flank pain, urinary flow changes, urinary incontinence or retention MSK: No back pain, neck pain, joint pain, myalgias, +right knee pain Skin: No lesions, rashes Neuro: No weakness, numbness, paresthesias, LOC, dizziness, headache Psych: No anxiety/panic, depression, SI/HI, AH/VH All other systems reviewed and are negative. [facility] Past Medical History Attestation statement: The following information was validated with the patient. Source: old records reviewed and nursing notes reviewed Medical History Asthma Skin cancer CKD (chronic kidney disease) stage 3, GFR 30-59 ml/min Chronic deep vein thrombosis (DVT) Right femoral vein DVT Osteoarthritis of knees, bilateral Mild recurrent major depression Polyarthralgia Osteopenia (~2007) Tubular adenoma of colon (~2009) Breast pain, left Postmenopausal Asthma-COPD overlap syndrome GERD (gastroesophageal reflux disease) HTN (hypertension) Paroxysmal atrial fibrillation (~01/2021) Dyslipidemia Hypothyroidism Pneumonia Eosinophilia Steroid dependent Chronic allergic rhinitis Surgical History History of right breast biopsy (~1998) History of colonoscopy History of D&C (~2002) History of tubal ligation History of shoulder surgery (~2006) History of nasal polypectomy (~2007) History of knee surgery Family History Family History Father Medical history unknown Mother Alzheimer disease Daughter Lupus Other Arthritis Social History Social History Household Members: None Housing: House Are you a primary daytime caregiver to a significant other at home: No Do you presently have visiting nurse or other home services: Yes Alcohol intake: never Patient Tobacco Use Status: Former Tobacco user Tobacco use type: Cigarette e-Cigarette/Vaping Use: Never Used Second Hand Smoke Exposure: No Advance Directives: No Advance Directives Information Provided: Yes Advance Directives Date on File: 11/10/20 service: No Current occupational status: disabled Cognitive needs: Yes (cane) Hearing needs: No Vision needs: Yes (glasses) Physical Exam Vital Signs: Vital Signs: Last Vital Signs Temp 97.7 F 03/25/25 12:28 Pulse 81 06/23/25 12:28 Resp 18 03/25/25 12:28 BP 149/53 H 03/25/25 12:28 Pulse Ox 98 03/25/25 12:28 O2 Del Method Room Air 03/25/25 12:28 BMI result Body Mass Index 32.1 Hypertensive, afebrile General: Well appearing, in no acute distress. Skin: Warm, dry, intact. No rashes or lesions. Head: Normocephalic, atraumatic. EENT: Hearing is intact b/l. Conjunctiva clear. PERRLA. EOM intact. Moist mucous membranes.? Cardiac: Chest wall symmetric. RRR Lungs: Normal respiratory effort without accessory muscle use. CTA bilaterally. Ext: + right knee with minimal swelling noted to anterior checked, no overlying erythema or ecchymosis. No open wounds. Mildly tender to palpation of anterior aspect of right knee without palpable deformity or crepitus. No fluctuance. No warmth. No streaking. Full ROM intact to flexion/extension of right knee without pain. No calf tenderness. No pitting edema. Compartments soft, compressible. 2+ popliteal and DP/PT pulse intact. Varicose veins noted to bilateral lower extremities. Neuro: AOx3. Normal speech. Strength 5/5 intact throughout. Sensation intact to light touch. NV intact distally. Ambulating with steady gait. Course Course Course Narrative: 1227 -- x-ray of right knee shows [id number] osteoarthritis. No joint effusion. I offered blood work including uric acid and inflammatory markers, initially patient agreeable. I was informed that she no longer wants her blood drawn and would like to be discharged. Patient has CKD and is on anticoagulation. Oral NSAIDs contraindicated. Will send patient home with diclofenac for her arthritis pain. Advised to avoid oral NSAIDs that she is on Eliquis. Artie wrap applied to right knee to help with compression/swelling. Advised to follow up with her PCP. Patient has remained stable throughout ED visit today. Discussed worrisome signs and symptoms and when to return to the ED. All questions answered at this time. Patient is agreeable with disposition and stable for discharge. Medical Decision Making Medical Decision Making MDM Narrative: 74 year old female with pmhx significant for osteoarthritis, GERD, HTN, paroxysmal AFib, HLD, hypothyroidism, asthma/COPD, CKD, anemia presents to the ED today for evaluation of atraumatic right knee pain x1 week. Patient is hypertensive, vitals otherwise WNL. Afebrile. She is well-appearing and in no acute distress. On exam, right knee with minimal swelling noted to anterior checked, no overlying erythema or ecchymosis. No open wounds. Mildly tender to palpation of anterior aspect of right knee without palpable deformity or crepitus. No fluctuance. No warmth. No streaking. Full ROM intact to flexion/extension of right knee without pain. No calf tenderness. No pitting edema. Compartments soft, compressible. 2+ popliteal and DP/PT pulse intact. Varicose veins noted to bilateral lower extremities. Ambulating with steady gait. Differential diagnosis includes arthritis, MSK sprain/strain, contusion. Lower suspicion for gout versus pseudogout. Unlikely fracture, dislocation. Unlikely septic arthritis, Lyme arthritis. Unlikely DVT, Becker's cyst, neurovascular co mpromise, threat to limb. Plan at this time is for labs, x-ray, inflammatory markers, uric acid, re- evaluation. Differential Diagnosis Differential Diagnoses: The differential diagnosis associated with the presentation includes as above. Admission/Observation Not indicated Independent Interpretation I performed an independent interpretation of an: Plain X-Ray Interpretation: X-ray right knee without noted joint effusion, no fracture Radiology Impression Discussion of test interpretation with radiology: I have reviewed the radiologist's reading. Radiologist Impression: Date of Service: 03/25/25 Procedure(s): XR knee RT 3V Accession Number(s): [id number] cc: Generic ED Physician; Angelique Li MD~ EXAMINATION: XR KNEE, RIGHT CLINICAL INFORMATION: pain, swelling of the right knee COMPARISON: None available. TECHNIQUE: Four views of the right knee. FINDINGS: There is no joint effusion. There is moderate medial compartment and mild to moderate lateral compartment joint space narrowing. Small tricompartmental marginal osteophytes are present. Focal calcification soft tissues posterior that is femur is likely at the junction of distal femoral and proximal popliteal artery. XR/XR knee RT 3V IMPRESSION: Mild to moderate osteoarthritis Electronically signed by: Jason Ng MD 03/25/2025 11:20 AM EDT External Record Review External record reviewed: Inpatient record Prescription Management I considered prescription management with: Pain Medication (Diclofenac cream) Chronic Conditions Patient?s care impacted by: Other (Osteoarthritis) Social Determinants Patient?s care significantly limited by Social Determinants of Health including: Other Social Determinant of Health Critical Care Time Critical Care Time Critical Care Time: No Discharge Plan Discharge Clinical Impression: Osteoarthritis Patient Disposition: Home, Self-Care Instructions: Osteoarthritis (ED) Additional Instructions: The x-ray of your right knee shows [id number] osteoarthritis. I have offered blood work today however you are declining at this time. I am sending you home with diclofenac cream. You may apply this to your knee to help with discomfort. We have also provided you with an Artie wrap today. This will help with compr ession/swelling. Follow up with your primary care provider. Return with new or worsening symptoms. In the case of an emergency call 911. Prescriptions: New diclofenac sodium [Arthritis Pain (diclofenac)] 1 % gel 2 g topical QID PRN (Reason: pain (scale score 4-6)) Qty: 100 0RF Rx Instructions: apply to right knee No Action (DME) lift recliner See Rx Instructions .Route .MEDSUPPLY Qty: 1 0RF Rx Instructions: As directed (DME) adona pillow seat and cushion See Rx Instructions .Route .MEDSUPPLY Qty: 1 0RF Rx Instructions: As directed fluocinolone acetonide oil [DermOtic Oil] 0.01 % drops 5 drp otic (ear) left BID 7 Days Qty: 20 0RF Nucala 100 mg/mL syringe 100 mg subcut Q4W Qty: 1 11RF (DME) underpads [Bed Underpads] Pad See Rx Instructions .Route Qty: 100 11RF Rx Instructions: As directed (DME) latex gloves Misc See Rx Instructions .Route Qty: 48 11RF Rx Instructions: Use 1 pair of gloves twice a day (DME) hand held shower head See Rx Instructions .Route .MEDSUPPLY Qty: 1 0RF Rx Instructions: As directed (DME) air conditioner See Rx Instructions .Route .MEDSUPPLY Qty: 1 0RF Rx Instructions: As directed losartan 25 mg tablet 25 mg PO DAILY 90 Days Qty: 90 1RF (DME) non disposable bed pads See Rx Instructions .Route .MEDSUPPLY Qty: 10 0RF Rx Instructions: As directed Incruse Ellipta 62.5 mcg/actuation blister with device 1 inh inhalation DAILY 90 Days Qty: 3 3RF prednisone 5 mg tablet 5 mg PO DAILY Qty: 30 11RF albuterol sulfate [Ventolin HFA] 90 mcg/actuation HFA aerosol inhaler 2 puff PO Q6H PRN (Reason: for wheezing) Qty: 18 12RF albuterol sulfate 2.5 mg /3 mL (0.083 %) solution for nebulization 2.5 mg inhalation Q6H PRN (Reason: shortness of breath or wheezing) 30 Days Qty: 180 11RF (DME) incontinence pad, liner, disp Pad See Rx Instructions .Route Qty: 60 11RF Rx Instructions: Use 1 pad twice a day (DME) quilted wipes See Rx Instructions .Route .MEDSUPPLY Qty: 200 12RF Rx Instructions: As directed betamethasone dipropionate 0.05 % ointment 1 appl topical DAILY PRN (Reason: skin irritation) 14 Days Qty: 15 0RF loratadine 10 mg tablet 10 mg PO DAILY 90 Days Qty: 90 3RF rosuvastatin 20 mg tablet 20 mg PO DAILY 90 Days Qty: 90 0RF Eliquis 5 mg tablet 5 mg PO BID Qty: 60 5RF diltiazem HCl 120 mg capsule,extended release 24hr 120 mg PO DAILY Qty: 90 1RF fenofibrate 54 mg tablet 54 mg PO BEDTIME 90 Days Qty: 90 0RF cholecalciferol (vitamin D3) 25 mcg (1,000 unit) capsule 25 mcg PO DAILY 90 Days Qty: 90 0RF levothyroxine 25 mcg tablet 25 mcg PO DAILY 90 Days Qty: 90 1RF ipratropium-albuterol 0.5 mg-3 mg(2.5 mg base)/3 mL solution for nebulization 3 ml inhalation QID PRN (Reason: Shortness Of Breath) tamsulosin [Flomax] 0.4 mg capsule 0.4 mg PO DAILY 14 Days Qty: 14 0RF triamcinolone acetonide 0.5 % cream 1 appl topical BID Qty: 30 0RF hydrocortisone [Anti-Itch (HC)] 1 % cream 1 appl topical BID PRN (Reason: skin irritation) 14 Days Qty: 28.4 0RF acetaminophen 650 mg tablet extended release 650 mg PO Q8H PRN (Reason: pain) 30 Days Qty: 90 0RF aripiprazole 5 mg tablet 5 mg PO DAILY escitalopram oxalate 10 mg tablet 10 mg PO DAILY (DME) nebulizers Misc See Rx Instructions .Route Rx Instructions: As directed Multaq 400 mg tablet 400 mg PO BID Rx Instructions: must administer with a meal/food prednisone 2.5 mg tablet 2.5 mg PO DAILY 30 Days Qty: 30 6RF sennosides [Natural Senna Laxative] 8.6 mg tablet 17.2 mg PO BEDTIME Qty: 60 3RF diphenhydramine HCl [Banophen] 25 mg tablet 25 mg PO BEDTIME PRN Referrals: Angelique Li MD [Primary Care Provider, Internal Medicine] Interventions: ED Discharge Assessment Last Done: 03/25/25 12:28 Discharge Date/Time: 03/25/25 12:32 Print Language: Japanese
[2025-03-25 12:28] VITALS: BP 149/53; PULSE 81; RESP 18; TEMP 36.5; O2SAT 98
--- NOTE | 2025-03-25 12:29 | MHC.EDTECH ---
Pt questioning when the discharge paper will be in, she stated she does not like me. she knows she not the only paper. she said i do more talking than work. RN discharging the patient right now.
== END 2025-03-25 12:32 | disposition home or self-care (01) ==
PROVIDERS: Emergency Provider Emergency Medicine; PCP Internal Medicine
DX: M17.11 Unilateral primary osteoarthritis, right knee (principal); I10 Essential (primary) hypertension; Z79.899 Other long term (current) drug therapy; Z87.891 Personal history of nicotine dependence
CPT/HCPCS: 73562; 99282; 99283

== ENCOUNTER 2025-04-29 08:56 | Outpatient (AMB) | payer OTHER, SELFPAY ==
--- NOTE | 2025-04-29 09:09 | MHC.OFFVIS ---
Vital Signs 04/29/25 09:48 Height 5 ft 3 in Weight 183 lb BMI 32.4 BP 144/72 H Blood Pressure Location Lt brachial Position Sitting Pulse 68 Pulse Source Pulse Oximeter Pulse Oximetry (%) 98 Oxygen Delivery Method Room Air Intake Visit Reasons: 3 mo follow up Intake Note: Est pt for mgmt of constipation w/ hx of GERD + dysphagia. CC: Pt denies any changes or concerns at this time. Horse Racer Required: Yes Horse Racer Services: Horse Racer Offered & Declined Horse Racer Name: Cem (GI w/ provider only) Information Interpreted: clinical only Accompanied by: Self / Same As Patient Allergies sulfamethoxazole (From Bactrim) Allergy (Severe, Verified 04/29/25 09:27) Rash trimethoprim (From Bactrim) Allergy (Severe, Verified 04/29/25 09:27) Rash levofloxacin (From LEVAQUIN) Allergy (Intermediate, Verified 04/29/25 09:27) RASH SOB, DIZZYNESS tramadol Adverse Reaction (Severe, Verified 04/29/25 09:27) abdominal pain, vomiting atorvastatin (Lipitor) Adverse Reaction (Intermediate, Verified 04/29/25 09:27) nausea codeine (CODEINE) Adverse Reaction (Intermediate, Verified 04/29/25 09:27) NAUSEA & VOMITING morphine (MORPHINE) Adverse Reaction (Intermediate, Verified 04/29/25 09:27) NAUSEA & VOMITING pravastatin Adverse Reaction (Intermediate, Verified 04/29/25 09:27) myalgia rosuvastatin Adverse Reaction (Mild, Verified 04/29/25 09:27) myalgia HPI HPI 3 mo follow up: Details: LAST VISIT: GERD (gastroesophageal reflux disease) Constipation Postprandial epigastric pain Postprandial abdominal bloating Plan Discussed with patient avoiding dietary triggers in late night snacking. Staying upright for minimum 3 hours after meals discussed with patient. 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 Patient will need to be scheduled for upper endoscopy. Currently she does not want to take any PPI. Patient has appointment with Cardiology in 2 days, will speak to special skills officer to add clearance to disappointment as patient will be also sent for colonoscopy. Patient will start taking senna 2 tablets daily, however if she continues to be constipated patient is to call our office. Follow-up in 3 months, sooner on as needed basis. She is agreeable to this plan and verbalizes understanding of instructions. She was given the opportunity to ask questions and all questions answered. ? Thank you for allowing me to participate in her care New sennosides (Natural Senna Laxative) 17.2 mg (2 x 8.6 mg) PO BEDTIME 60 tabs 3RF constipation K59.00 Discontinued loperamide (Imodium A-D) Discontinued Reason: Patient no longer taking 2 mg PO Q6H PRN 10 caps 0RF loose stool omeprazole Discontinued Reason: Patient no longer taking 40 mg PO DAILY 30 days 30 caps 11RF famotidine (Pepcid) Discontinued Reason: Patient no longer taking 20 mg PO BID 90 days PRN 180 tabs 1RF gastritis TODAY'S VISIT Patient is here today for follow-up. Patient reports that she has been doing fairly well. She is taking Senokot as needed to help her with bowel movements. Her symptoms of acid reflux are currently suppressed. Patient is not taking any PPI. Will be sent for upper endoscopy and colonoscopy. Patient has an appointment with Cardiology in July. We will ask for risk stratification before sending patient for procedure. Patient states that she changed her diet. Eating more vegetables. Avoiding food high in fat or fast food. [facility] Medical History Asthma Skin cancer CKD (chronic kidney disease) stage 3, GFR 30-59 ml/min Chronic deep vein thrombosis (DVT) Right femoral vein DVT Osteoarthritis of knees, bilateral Mild recurrent major depression Polyarthralgia Osteopenia (~2007) Tubular adenoma of colon (~2009) Breast pain, left Postmenopausal Asthma-COPD overlap syndrome GERD (gastroesophageal reflux disease) HTN (hypertension) Paroxysmal atrial fibrillation (~01/2021) Dyslipidemia Hypothyroidism Pneumonia Eosinophilia Steroid dependent Chronic allergic rhinitis Surgical History History of right breast biopsy (~1998) History of colonoscopy History of D&C (~2002) History of tubal ligation History of shoulder surgery (~2006) History of nasal polypectomy (~2007) History of knee surgery Family History Father Medical history unknown Mother Alzheimer disease Daughter Lupus Other Arthritis Social History Household Members: None Housing: House Are you a primary cardiac care nurse to a significant other at home: No Do you presently have visiting nurse or other home services: Yes Alcohol intake: never Patient Tobacco Use Status: Former Tobacco user Tobacco use type: Cigarette e-Cigarette/Vaping Use: Never Used Second Hand Smoke Exposure: No Advance Directives Date on File: 11/10/20 service: No Current occupational status: disabled Cognitive needs: Yes (cane) Hearing needs: No Vision needs: Yes (glasses) Review of Systems Const Denies weight gain and Denies weight loss ENT Reports no additional complaints, Denies dysphagia and Denies odynophagia Card Reports no additional complaints Resp Reports no additional complaints GI Reports abdominal pain (epigastric), Denies belching, Denies melena, Reports bloating, Denies change in bowel habits, Reports constipation, Denies dysphagia, Denies excessive flatus, Denies dyspepsia, Reports heartburn, Denies diarrhea, Denies loose stools, Reports nausea, Denies odynophagia and Denies vomiting Reports no additional complaints Musc Reports no additional complaints Neuro Reports no additional complaints Psych Reports no additional complaints Endo Reports no additional complaints Physical Exam Vital Signs: Last Vital Signs Pulse 68 04/29/25 09:48 BP 144/72 H 04/29/25 09:48 Pulse Ox 98 04/29/25 09:48 Oxygen Delivery Method Room Air 04/29/25 09:48 BMI result Body Mass Index 32.4 Const General: healthy appearing and no acute distress Nutritional Appearance: well nourished and obese Orientation/consciousness: patient oriented x3 Resp Effort & Inspection: normal respiratory effort, able to speak in complete sentences, no tracheal deviation and symmetric chest movement Auscultation: clear to auscultation bilaterally Cardio Rate: regular rate GI Inspection: Yes normal to inspection, No distended and Yes obesity Palpation (GI): Soft to palpation, not firm, nontender and No hepatosplenomegaly present Auscultation: normal bowel sounds General: Yes no CVA tenderness Back/Spine/Pelvis Back: no CVA tenderness Skin General skin exam: elasticity normal, turgor normal and dry skin Neuro General: patient oriented x3 Psych Appearance: grossly normal Mental Status: mental status grossly normal Assessment & Plan Assessment & Plan (1) GERD (gastroesophageal reflux disease): Code(s): K21.9 - Gastro-esophageal reflux disease without esophagitis Category: Medical Qualifiers: Esophagitis presence: esophagitis presence not specified Qualified Code(s): K21.9 - Gastro-esophageal reflux disease without esophagitis (2) Achalasia: Code(s): K22.0 - Achalasia of cardia Category: Medical (3) Chronic idiopathic constipation: Code(s): K59.04 - Chronic idiopathic constipation Category: Medical (4) Tubular adenoma of colon: Onset Date: ~2009 Comment: (2TAs on 2009 scope) Code(s): D12.6 - Benign neoplasm of colon, unspecified Category: Medical (5) Epigastric pain: Code(s): R10.13 - Epigastric pain Category: Medical Plan Continue avoiding dietary triggers only night snacking. Staying upright for minimal 3 hours after meals discussed with patient. Patient will follow-up in the office in 2 months to discuss colonoscopy. Message sent to special skills officer of Cardiology to add risk stratification to for appointment July. Continue senna as needed. Increase fluid intake, fiber intake and activity to promote better bowel motility. Patient is agreeable to current plan of care and verbalizes understanding of instructions. She was given the opportunity to ask questions and all questions answered. Thank you for allowing me to participate in her care Medications: Refilled sennosides (Natural Senna Laxative) 17.2 mg (2 x 8.6 mg) PO BEDTIME 60 tabs 3RF constipation K59.00 - Constipation, unspecified Coding Level of Care Code Est Pt Level 4 (17031) Complex EM visit Add On G2211 Diagnoses Gastroesophageal reflux disease, unspecified whether esophagitis present K21.9 Esophagitis presence: esophagitis presence not specified Achalasia K22.0 Chronic idiopathic constipation K59.04 Tubular adenoma of colon D12.6 Epigastric pain R10.13 Time Spent (min) 35 Comment 25 minutes spent with patient and additional 10 minutes spent reviewing her records
--- OUTSIDE RECORDS SUMMARY | 2025-04-29 09:34 | XMS_ITS | Clinical Summary ---
Author Organization [facility] Address [address] [facility] [address] [place] [address] Phone Care Team Providers Care Brewery Technician Name Role Phone Angelique Li MD Primary Care Provider [phone] Allergies Active Allergy Reactions Criticality Noted Date [...] Cancer Screening: Sigmoidoscopy 1998 Influenza Vaccine (#1) 2025 Hepatitis B Vaccine Aged Out No longe r eligible based on patient's age to complete this topic Insurance [facility] Dual SNP ([id number]) [facility] One Care Dual SNP ([id number]) Care Teams Brewery Technician Relationship Specialty Start Date End Date Angelique Li MD [address] [facility] [address] [place] [address] PCP - General Internal Medicine 04/07/22
--- OUTSIDE RECORDS SUMMARY | 2025-04-29 09:34 | XMS_ITS | Encounter Summary ---
Author Organization [email or web address] Address [address] [facility] [address] [place] [address] Care Team Providers Care Glass Installer Technician Name Role Phone Unavailable Primary Care Provider Unavailabl e Reason for Visit * Reason Onset Date Comments mail appt slip with address of offfice Encounter Details Date Type Department Care Team ([facility] st Contact Info) Description 11/09/2024 Telephone [facility]ULT [facility] [address] [place] [address] Frank Aldridge mail appt slip with address [...] documented in this encounter Plan of Treatment Not on file documented as of this encounter Visit Diagnoses Not on filedocumented in this encounter
--- OUTSIDE RECORDS SUMMARY | 2025-04-29 09:34 | XMS_ITS | Clinical Summary ---
Author Organization [address] [place] [address] Address [address] [place] [address] Phone Care Team Providers Care Dye House Helper Name Role Phone Angelique Valentine MD Primary Care Provider [phone] Allergies Active Allergy Reactions Criticality Noted Date Comments Acetaminophen-Codeine Nausea And Vomiting 08/03 Atorvastatin Nausea And Vomiting 05/19/2022 Codeine Nausea And Vomiting, Nausea Only,Other 11/11/2013 tylenol #3 Levofloxacin Nausea Only,Other,Rash 11/11/2013 Morphine Nausea And Vomiting 05/19/2022 Pravastatin Pain 08/03/2022 Rosuvastatin Pain 08/03/2022 Sulfamethoxazole Rash 08/03/2022 Tramadol Nausea And Vomiting 05/19/2022 Trimethoprim Rash 05/19/2022 Medications acetaminophen (TYLENOL 8 HOUR) 650 mg 8 hr tablet TOME 1 TABLETA POR V A ORAL CADA 8 HORAS CUANDO SEA NECESARIO PARA EL DOLOR 03/06/20 24 Active albuterol HFA (PROAIR HFA ; PROVENTIL HFA ; VENTOLIN HFA) 90 mcg/actuation inhaler TOME DOS INHALACIONES POR V A ORAL CADA SEIS HORAS CUANDO SEA NECESARIO FOR WHEEZING FOR 30 DAYS 04/06/20 25 Active Eliquis 5 mg tablet TOME 1 TABLETA POR V A ORAL DOS VECES AL D A Active ARIPiprazole (ABILIFY) 5 mg tablet TOME 1 TABLETA POR V A ORAL TODOS LOS D 04/12/20 25 Active betamethasone dipropionate (DIPROSONE) 0.05 % ointment APPLY TOPICALLY DAILY NEEDED FOR SKIN IRRITATION FOR 2 WEEKS 10/18/19 25 Active budesonide (PULMICORT) 0.5 mg/2 mL nebulizer solution Inhale 2 mL (0.5 mg total) by mouth. Active busPIRone (BUSPAR) 5 mg tablet Take 1 tablet (5 mg total) by mouth. Active cephalexin (KEFLEX) 500 mg capsule TAKE ONE CAPSULE TWICE DAILY FOR SEVEN DAYS 07/04/20 24 Active Vitamin D3 25 mcg (1,000 unit) capsule TOME 1 C PSULA ORALLY DAILY FOR 90 DAYS Active citalopram (CeleXA) 20 mg tablet Take 1.5 tablets (30 mg total) by mouth daily. Active diclofenac (VOLTAREN) 1 % topical gel APPLY 2 G TOPICALLY 4 TIMES A DAY NEEDED FOR PAIN (SCALE SCORE 4-6) APPLY TO RIGHT KNEE 03/25/20 25 Active dilTIAZem XR (DILACOR XR) 120 mg 24 hr capsule Take 1 capsule (120 mg total) by mouth 1 (one) time each day. Active Banophen 25 mg capsule TAKE 1 CAP BY MOUTH AT BEDTIME NEEDED FOR SYMPTOMS OF INSOMNIA/ NEEDED. 10/09/19 25 Active doxycycline hyclate (VIBRA-TABS) 100 mg tablet Take 1 tablet (100 mg total) by mouth 2 (two) times a day. Active dronedarone (MULTAQ) 400 mg tablet Take by mouth. Activ e escitalopram (LEXAPRO) 10 mg tablet TOME 1 TABLETA POR V A ORAL TODOS LOS D EN LA NOCHE Active famotidine (PEPCID) 20 mg tablet TOME ROBBIE TABLETA POR V A ORAL DOS VECES AL D A CUANDO SEA NECESARIO FOR GASTRITIS Active fenofibrate (LOFIBRA) 54 mg tablet TOME 1 TABLETA POR V A ORAL TODOS LOS D AL ACOSTARSE Active fluocinolone acetonide oiL 0.01 % drops INSTILL 5 DROPS INTO THE LEFT EAR 2 TIMES A DAY FOR 7 DAYS 10/01/20 24 Active hydrocortisone 1 % cream with perineal applicator APPLY TOPICALLY 2 TIMES A DAY NEEDED FOR SKIN IRRITATION FOR 2 WEEKS 04/26/20 24 Active hydrOXYzine pamoate (VISTARIL) 50 mg capsule Take 1-2 capsules (50-100 mg total) by mouth. Active ipratropium-albute roL (DUONEB) 0.5-2.5 mg/3 mL nebulizer solution Inhale 3 mL by mouth. Active levothyroxine (SYNTHROID, LEVOTHROID) 50 mcg tablet Take 1 tablet (50 mcg total) by mouth 1 (one) time each day. Active loperamide (IMODIUM) 2 mg capsule TOME 1 C PSULA POR V A ORAL CADA SEIS HORAS CUANDO SEA NECESARIO FOR LOOSE STOOL 12/07/19 25 Active loratadine (CLARITIN) 10 mg tablet TOME ROBBIE TABLETA POR V A ORAL TODOS LOS D Active losartan (COZAAR) 25 mg tablet TOME 1 TABLETA POR V A ORAL TODOS LOS D Active mepolizumab (Nucala) 100 mg/mL injection Inject under the skin. Active mupirocin (BACTROBAN) 2 % ointment APPLY TWICE DAILY TO THE BIOPSY SITES FOR 14 DAYS. 06/28/20 24 Active omeprazole (PriLOSEC) [address] capsule TOME 1 C PSULA POR V A ORAL TODOS LOS D Active ondansetron ODT (ZOFRAN-ODT) 4 mg disintegrating tablet Take 1 tablet (4 mg total) by mouth every 8 (eight) hours if needed. Active predniSONE (DELTASONE) 10 mg tablet PLEASE SEE ATTACHED FOR DETAILED DIRECTIONS 11/18/19 24 Active rosuvastatin (CRESTOR) 20 mg tablet TOME 1 TABLETA POR V A ORAL TODOS LOS D Active senna 8.6 mg tablet TOME DOS TABLETAS POR V A ORAL TODOS LOS D AL ACOSTARSE CUANDO SEA NECESARIO FOR CONSTIPATION 03/20/20 25 Active simvastatin (ZOCOR) 10 mg tablet Take 1 tablet (10 mg total) by mouth. Active Incruse Ellipta 62.5 mcg/actuation inhalation INHALE 1 PUFF POR V A ORAL TODOS LOS D FOR 90 DAYS Active Encounters Date Type Department Care Team Description 04/15/2025 10:00 AM EDT Consult Plastic & Reconstructive Surgery - [address] [address] Sidra Canales PA 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); Basal cell carcinoma of left hand; Current use of [facility] from Last 3 Months Surgical History Surgery Date Site/Laterality Comments COLONOSCOPY N/A PROCEDURE: HISTORICAL COLONOSCOPY OTHER SURGICAL HISTORY N/A PROCEDURE: HISTORICAL D&C KNEE SURGERY N/A PROCEDURE: HISTORICAL KNEE SURGERY SHOULDER SURGERY N/A PROCEDURE: HISTORICAL SHOULDER SURGERY TUBAL LIGATION PROCEDURE: HISTORICAL TUBAL LIGATION Medical History Medical History Date Comments Asthma 08/03/2022 DX:Asthma Breast pain, left 08/03/2022 DX:Breast pain , left Eosinophilia 08/03/2022 DX:Eosinophilia GERD (gastroesophageal reflux disease) 08/03/2022 DX:GERD (gastroesophageal reflux disease) HTN (hypertension) 08/03/2022 DX:HTN (hyper tension) Hypothyroidism 08/03/2022 DX:Hypothyroidis m Depression 08/03/2022 DX:Depression Osteoarthritis of knees, bilateral 08/03/2022 DX:Osteoarthritis of knees, bilateral Osteopenia 08/03/2022 DX:Osteopenia Postmenopausal 08/03/2022 DX:Postmenopausa l Tubular adenoma of colon 08/03/2022 DX:Tubu lar adenoma of colon Social History Tobacco Use Types Packs/Day Years Used Date Smoking Tobacco: Never Smokeless Tobacco: Never Tobacco Cessation:Counseling Given: Not Answered Alcohol Use Standard Drinks/Week Comments Never 0 (1 standard drink = 0.6 oz pur e alcohol) Comments Unknown Sex and Gender Information Value Date Recorded Sex Assigned at Not on file Legal Sex Female 4:54 AM EST Gender Identity Not on file Sexual Orientation Not on file Obstetrics History Last Filed Vital Signs Vital Sign Reading Time Taken Comments Blood Pressure 158/77 04/15/2025 9:33 AM EDT Pulse 75 04/15/2025 9:33 AM EDT Temperature - - Respiratory Rate - - Oxygen Saturation - - Inhaled Oxygen Concentration - - Weight 83.6 kg (184 lb 6.4 oz) 04/15/2025 9:33 A M EDT Height 155.6 cm (5' 1.25 ) 04/15/2025 9:33 AM ED T Body Mass Index 34.56 04/15/2025 9:33 AM EDT Plan of Treatment Health Maintenance Due Date Last Done Comments Zoster Vaccines (1 of 2) 1999 Pneumococcal Vaccine: 50+ Years (2 of 2 - PCV) 05/10/2016 05/10/2015, 08/21/2002 DTaP,Tdap,and Td Vaccines (2 - Td or Tdap) 06/23/2022 06/23/2012 Cholesterol Screening (Lipid Panel) 09/05/2022 Colorectal Cancer Screening: Colonoscopy 09/05/2022 Falls Risk Assessment 09/05/2022 Hepatitis C Screening 09/05/2022 Medicare Annual Wellness Visit 09/05/2022 Osteoporosis Screening (Bone Density Screening) 09/05/2022 Social Influencers of Health Screening 09/05/2022 Hypertension/CHF/CAD Annual BMP Blood Test 11/18/2023 COVID-19 Vaccine ( - 2023-2 5 season) 2024 Depression Screening 10/03/2024 RSV Immunization Adult Patients (1 - 1-dose 75+ series) 2024 Influenza Vaccine (#1) 2025 8, 06/11/2013, 06/23/2012 HIB Vaccines Aged Out No longer eligi [...] on patient's age to complete this topic MMR Vaccines Aged Out No longer eligi ble based on patient's age to complete this topic Meningococcal ACWY Vaccine Aged Out N o longer eligible based on patient's age to complete this topic Meningococcal B Vaccine Aged Out No l onger eligible based on patient's age to complete this topic RSV Immunization Patients Under 20 months Aged Out No longer eligible b ased on patient's age to complete this topic Varicella Vaccines Aged Out No longer eligible based on patient's age to complete this topic Insurance [facility] MEDICARE Member Subscriber Plan / Payer (Ef fective 2016-Present) Name:Sona Pinon Relation to Subscriber:Self Name:Sona Pinon Payer ID:[id number] Group ID:[id number] Type:Not on file Address: [facility] [address] [address] Care Teams Dye House Helper Relationship Specialty Start Date End Date Angelique Valentine MD [address] [facility] , [address] [facility] D/B/A: Gifty Arguello In Internal Medicine SEBASTIÁN Durbin PCP - General Internal Medicine 08/23/17
[2025-04-29 09:48] VITALS: BP 144/72; PULSE 68; O2SAT 98; BMI 32.4
== END 2025-04-29 10:14 | disposition home or self-care (01) ==
LOC: HO.HGI 09:00
PROVIDERS: PCP Internal Medicine; Visit Provider Nurse Practitioner Family
DX: K21.9 Gastro-esophageal reflux disease without esophagitis (principal); K22.0 Achalasia of cardia; K59.04 Chronic idiopathic constipation; D12.6 Benign neoplasm of colon, unspecified; R10.13 Epigastric pain
CPT/HCPCS: 99214; G2211

== ENCOUNTER → 2025-04-29 08:56 | Outpatient (BNVA) | payer OTHER, SELFPAY | PROVIDERS: PCP Internal Medicine; Visit Provider Nurse Practitioner Family | DX: K21.9 Gastro-esophageal reflux disease without esophagitis (principal); K22.0 Achalasia of cardia; K59.04 Chronic idiopathic constipation; D12.6 Benign neoplasm of colon, unspecified; R10.13 Epigastric pain | CPT/HCPCS: 99212 ==

== ENCOUNTER 2025-06-17 10:00 | Outpatient (AMB) | payer OTHER, SELFPAY ==
--- NOTE | 2025-06-17 10:08 | MHC.OFFVIS ---
Vital Signs 06/17/25 10:10 Height 5 ft 3 in Weight 185 lb BMI 32.8 BP 183/79 H Blood Pressure Location Lt brachial Position Sitting Pulse 88 Intake Visit Reasons: umbilical hernia Intake Note: Patient is seen in office for evaluation and treatment of an umbilical hernia. Pt c/o: per pt does not feel a lump in the area, states she had umblical hernia repair back in 1973 due childbirth belly button came out. Denies n/v/d/c CT:12/06/24 Production Illustrator Required: Yes Production Illustrator Language: Pathology Transcriptionist Services: Production Illustrator Present Production Illustrator Name: Shobha ROSALES Information Interpreted: non-clinical & clinical Help Desk Associate: Help Desk Associate Present Accompanied by: Self / Same As Patient Allergies sulfamethoxazole (From Bactrim) Allergy (Severe, Verified 06/17/25 10:09) Rash trimethoprim (From Bactrim) Allergy (Severe, Verified 06/17/25 10:09) Rash levofloxacin (From LEVAQUIN) Allergy (Intermediate, Verified 06/17/25 10:09) RASH SOB, DIZZYNESS tramadol Adverse Reaction (Severe, Verified 06/17/25 10:09) abdominal pain, vomiting atorvastatin (Lipitor) Adverse Reaction (Intermediate, Verified 06/17/25 10:09) nausea codeine (CODEINE) Adverse Reaction (Intermediate, Verified 06/17/25 10:09) NAUSEA & VOMITING morphine (MORPHINE) Adverse Reaction (Intermediate, Verified 06/17/25 10:09) NAUSEA & VOMITING pravastatin Adverse Reaction (Intermediate, Verified 06/17/25 10:09) myalgia rosuvastatin Adverse Reaction (Mild, Verified 06/17/25 10:09) myalgia Medication List - Last Reconciled 06/17/25 by Leo Dotson MD acetaminophen ER 650 mg PO Q8H PRN 30 days [adona pillow seat and cushion As directed] [air conditioner As directed] albuterol sulfate 90 mcg/actuation (Ventolin HFA) 2 puffs PO Q6H PRN albuterol sulfate 2.5 mg (3 mL) inhalation Q6H PRN 30 days apixaban (Eliquis) 5 mg PO BID aripiprazole 5 mg PO DAILY betamethasone dipropionate 0.05% 1 appl topical DAILY PRN 2 weeks cholecalciferol (vitamin D3) 25 mcg PO DAILY 90 days diclofenac sodium 1% (Arthritis Pain (diclofenac)) 2 grams topical QID PRN diltiazem HCl CD 120 mg PO DAILY diphenhydramine HCl (Banophen) 25 mg PO BEDTIME PRN dronedarone (Multaq) 400 mg PO BID escitalopram oxalate 10 mg PO DAILY fenofibrate 54 mg PO BEDTIME 90 days fluocinolone acetonide oil 0.01% (DermOtic Oil) 5 drps otic (ear) left BID 7 days [hand held shower head As directed] hydrocortisone 1% (Anti-Itch (hydrocortisone)) 1 appl topical BID PRN 2 weeks incontinence pad, liner, disp Use 1 pad twice a day ipratropium-albuterol 0.5 mg-3 mg(2.5 mg base)/3 mL 3 mL inhalation QID PRN latex gloves Use 1 pair of gloves twice a day levothyroxine 25 mcg PO DAILY 90 days [lift recliner As directed] loratadine 10 mg PO DAILY 90 days losartan 25 mg PO DAILY 90 days mepolizumab (Nucala) 100 mg subcut Q4W nebulizers As directed [non disposable bed pads As directed] prednisone 5 mg PO DAILY [quilted wipes As directed] [recliner As directed] rosuvastatin 20 mg PO DAILY 90 days sennosides (Natural Senna Laxative) 17.2 mg (2 x 8.6 mg) PO BEDTIME tamsulosin (Flomax) 0.4 mg PO DAILY 14 days triamcinolone acetonide 0.5% 1 appl topical BID umeclidinium 62.5 mcg/actuation (Incruse Ellipta) 1 inh inhalation DAILY 90 days underpads (Bed Underpads) As directed HPI Comments Details: 74-year-old female patient presenting for evaluation of an umbilical hernia. She denies any abdominal pain, nausea or vomiting currently. She was unaware of the umbilical hernia but does report a previous history of an umbilical hernia repair after the of her child. She is unsure of the type of repair performed at that time. A CT abdomen and pelvis performed on 12/06/2024 does reveal a small umbilical hernia containing fat with no bowel filling the hernia. No inflammatory changes are noted as well. [facility] Medical History Asthma Skin cancer CKD (chronic kidney disease) stage 3, GFR 30-59 ml/min Chronic deep vein thrombosis (DVT) Right femoral vein DVT Osteoarthritis of knees, bilateral Mild recurrent major depression Polyarthralgia Osteopenia (~2007) Tubular adenoma of colon (~2009) Breast pain, left Postmenopausal Asthma-COPD overlap syndrome GERD (gastroesophageal reflux disease) HTN (hypertension) Paroxysmal atrial fibrillation (~01/2021) Dyslipidemia Hypothyroidism Pneumonia Eosinophilia Steroid dependent Chronic allergic rhinitis Surgical History History of right breast biopsy (~1998) History of colonoscopy History of D&C (~2002) History of tubal ligation History of shoulder surgery (~2006) History of nasal polypectomy (~2007) History of knee surgery Family History Father Medical history unknown Mother Alzheimer disease Daughter Lupus Other Arthritis Social History Household Members: None Housing: House Are you a primary childcare center director to a significant other at home: No Do you presently have visiting nurse or other home services: Yes Alcohol intake: never Patient Tobacco Use Status: Former Tobacco user Tobacco use type: Cigarette e-Cigarette/Vaping Use: Never Used Second Hand Smoke Exposure: No Advance Directives Date on File: 11/10/20 service: No Current occupational status: disabled Cognitive needs: Yes (cane) Hearing needs: No Vision needs: Yes (glasses) Review of Systems Const All systems reviewed & are unremarkable except as noted in HPI and below Physical Exam Vital Signs: Last Vital Signs Pulse 88 06/17/25 10:10 BP 183/79 H 06/17/25 10:10 BMI result Body Mass Index 32.8 Const General: cooperative and no acute distress Nutritional Appearance: well nourished Orientation/consciousness: patient oriented x3 Limitations: no limitations HEENT Head: Yes normocephalic and Yes atraumatic Ears: hearing grossly normal bilaterally Resp Effort & Inspection: normal respiratory effort, no audible wheezes, no cough and no respiratory distress Cardio Jugular venous distension: no JVD GI Other: Small reducible umbilical hernia noted with minimal change with Valsalva maneuvers. No tenderness to palpation. Hernia easily reduces with light pressure. Inspection: Yes normal to inspection Palpation (GI): Soft to palpation, nontender, no guarding, not rigid and No hepatosplenomegaly present Skin Other: Warm, dry, no rash Neuro General: patient oriented x3 Extrem General: Yes no clubbing, cyanosis or edema Assessment & Plan Assessment & Plan (1) Umbilical hernia: Code(s): K42.9 - Umbilical hernia without obstruction or gangrene Category: Medical Qualifiers: Obstruction and gangrene presence: without obstruction or gangrene Qualified Code(s): K42.9 - Umbilical hernia without obstruction or gangrene Plan 74-year-old female patient with a small umbilical hernia which is currently asymptomatic. I reviewed the CT findings as well as the physical findings in detail with the patient. She has a very small hernia which can safely be observed unless she becomes symptomatic. We reviewed the symptoms to be aware of and she agrees to call should these symptoms develop. She should follow up as needed. Coding Level of Care Code New Pt Level 4 (33577) Diagnoses Umbilical hernia without obstruction and without gangrene K42.9 Obstruction and gangrene presence: without obstruction or gangrene
[2025-06-17 10:10] VITALS: BP 183/79; PULSE 88; BMI 32.8
--- OUTSIDE RECORDS SUMMARY | 2025-06-17 12:28 | XMS_ITS | Encounter Summary ---
Author Organization [employer] Address [address] [place] [address] Care Team Providers Care Machine Taper Name Role Phone Angelique Valentine MD Primary Care Provider [phone] Reason for Visit * Reason Onset Date Comments SURGERY LETTER 06/17/2025 06/17/2025 Surge ry letter Encounter Details Date Type Department Care Team ([facility] st Contact Info) Description 06/17/2025 Telephone General Surgery - [address] [place] [address] Luis Alberto Marinelli, DO [address] [place] [phone] Social History Tobacco Use Types Packs/Day Years Used Date Smoking Tobacco: Never Smokeless Tobacco: Never Alcohol Use Standard Drinks/Week Comments Never 0 (1 standard drink = 0.6 oz pur e alcohol) Comments Unknown Sex and Gender Information Value Date Recorded Sex Assigned at Not on file Legal Sex Female 4:54 AM EST Gender Identity Not on file Sexual Orientation Not on file documented as of this encounter Progress Notes * Efrenleslie Sean - 06/17/2025 8:53 AM EDT Images from the original note were not included. Dear Sona Pinon. Thank you for scheduling your upcoming procedure at [facility] on 07/01/[address] Luis Alberto Marinelli. No COVID testing is required for outpatient procedures currently. Please note, if this policy changes, our office will inform you of your obligations prior to surgery. Post Operative Appointment: ?? A post-operative visit has been scheduled for you with Sidra Canales. Appointment Date: 07/11/2025 Appointment Time: 10:30 AM Office Address: [address] [place] [address] Day of Surgery: ?? Your surgery is scheduled at [facility] located at [address] [facility] [address]: Surgery: Date: 07/01/2025 Surgery Time: 10.30 AM You should plan to arrive 30 minutes prior to your surgical time. You will enter through the main entrance of [facility] and proceed to the far hallway. Proceed down the sargent to the elevators on the left by patient registration. Take the elevator to the 3rd floor and proceed to the surgery check-in desk Please reach out to the office [phone] and ask to speak with me with any questions or concerns. Thank You, Cost Clerk documented in this encounter Plan of Treatment Upcoming Encounters Date Type Department Care Team (Latest Contact Info) Description 07/01/2025 10:30 AM EDT Hospital Encounter [facility] OR [address] [place] [phone] Luis Alberto Marinelli DO [address] [place] [phone] 07/01/2025 10:30 AM EDT - 07/01/2025 12:00 PM EDT Surgery [facility] OR [address] [place] [phone] Luis Alberto Marinelli DO [address] [place] [phone] EXCISION LESION *left ear WITH FROZEN [70208 (CPT )] 07/11/2025 10:30 AM EDT Office Visit Plastic & Reconstructive Surgery - [place] [address] [place] [address] Sidra Canales PA [address] [place] [phone] Scheduled Procedures Name Priority Associated Diagnoses Date/Ti me EXCISION LESION EAR Basal cell carcinoma of left ear 07/01/2025 10:30 AM EDT REPAIR LACERATION Basal cell carcinoma of left ear 07/01/2025 10:30 AM EDT documented as of this encounter Visit Diagnoses Not on filedocumented in this encounter Care Teams Machine Taper Relationship Specialty Start Date End Date Angelique Valentine MD [address] [facility] , [address] [facility] Physician Associ D/B/A: [facility] SEBASTIÁN Durbin PCP - General Internal Medicine 08/23/17 documented as of this encounter
--- OUTSIDE RECORDS SUMMARY | 2025-06-17 12:28 | XMS_ITS | Clinical Summary ---
Author Organization [address] [place] [address] Address [address] [place] [address] Phone Care Team Providers Care Bone Cooking Operator Name Role Phone Angelique Valentine MD Primary Care Provider [phone] Allergies Active Allergy Reactions Criticality Noted Date [...] TODOS LOS D FOR 90 DAYS Active Active Problems Problem Noted Date Diagnosed Date Basal cell carcinoma of left ear 04/15/2025 Encounters Date Type Department Care Team Description 06/17/2025 Telephone General Surgery [facility] [address] [address] Luis Alberto Marinelli DO 06/14/2025 Telephone General Surgery [facility] 175 [facility] 110 [place] [address] Luis Alberto Marinelli, 06/12/2025 Telephone Plastic & Reconstructive Surgery [address] [place] [address] Luis Alberto Marinelli DO 04/15/2025 10:00 AM EDT Consult Plastic & Reconstructive Surgery [address] [phone] Sidra Canales PA 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); Basal cell carcinoma of left hand; Current use of terminal make up operator anticoagulation from Last 3 Months Surgical History [...] 04/15/2025 9:33 AM EDT Plan of Treatment Upcoming Encounters Date Type Department Care Team (Latest Contact Info) Description 07/01/2025 10:30 AM EDT Hospital Encounter [facility] OR [address] [place] [phone] Luis Alberto Marinelli [address] [place] [phone] 07/01/2025 10:30 AM EDT - 07/01/2025 12:00 PM EDT Surgery [facility] OR [address] [place] [phone] Luis Alberto Marinelli [address] [place] [phone] EXCISION LESION *left ear WITH FROZEN [[id number] (CPT )] 07/11/2025 10:30 AM EDT Office Visit Plastic & Reconstructive Surgery - [place] [address] [place] [phone] Sidra Canales PA [address] [place] [phone] Scheduled Procedures Name Priority Associated Diagnoses Date/Ti me EXCISION LESION EAR Basal cell carcinoma of left ear 07/01/2025 10:30 AM EDT REPAIR LACERATION Basal cell carcinoma of left ear 07/01/2025 10:30 AM EDT Health Maintenance Due Date Last Done Comments [...] 09/05/2022 Hypertension/CHF/CAD Annual BMP Blood Test 11/18/2023 Depression Screening 10/03/2024 RSV Immunization Adult Patients (1 - 1-dose 75+ series) 2024 COVID-19 Vaccine ( - 2023-2 5 season) 2025 Influenza Vaccine (#1) 2025 8, 06/11/2013, 06/23/2012 [...] patient's age to complete this topic Insurance [facility] MEDICARE Member Subscriber Plan / Payer (Ef fective 2016-Present) Name:Sona Pinon Relation to Subscriber:Self Name:Sona Pinon Payer ID:[id number] Group ID:[id number] Type:Not on file Address: [place] [address] [place] [place] [phone] Care Teams Bone Cooking Operator Relationship Specialty Start Date End Date Angelique Valentine MD [address] [place] [address] , [address] [facility] Physician Associ D/B/A: [facility] SEBASTIÁN Durbin PCP - General Internal Medicine 08/23/17
--- OUTSIDE RECORDS SUMMARY | 2025-06-17 12:28 | XMS_ITS | Clinical Summary ---
Author Organization [facility] Address [address] [facility] [address] [place] [address] Phone Care Team Providers Care Cage Tender Name Role Phone Angelique Li MD Primary Care Provider [phone] Allergies Active Allergy Reactions Criticality Noted Date [...] patient's age to complete this topic Insurance [facility] Dual SNP ([id number]) FOR[facility]LY [facility] One Care Dual SNP ([id number]) Care Teams Cage Tender Relationship Specialty Start Date End Date Angelique Li MD 2 [facility] [address] [place] [address] PCP - General Internal Medicine 04/07/22
--- OUTSIDE RECORDS SUMMARY | 2025-06-17 12:28 | XMS_ITS | Encounter Summary ---
Author Organization [employer] Address [address] [facility] 7t [place] [address] Care Team Providers Care Pipelines Manager Name Role Phone Unavailable Primary Care Provider Unavailabl e Reason for Visit * Reason Onset Date Comments mail appt slip with address of offfice Encounter Details Date Type Department Care Team (Late Contact Info) Description 11/09/2024 Telephone [facility] ADULT DENTAL [address] [place], [place] [phone] Frank Aldridge mail appt slip with address [...] Care Team (Late st Contact Info) Description 09/09/2025 10:30 AM EST Office Visit [facility] OPTOMETRY [address] [place], [place] [phone] Mustapha, Nirali, OD [address] [place] [address] documented as of this encounter Visit Diagnoses Not on filedocumented in this encounter
--- OUTSIDE RECORDS SUMMARY | 2025-06-17 12:28 | XMS_ITS | Encounter Summary ---
Author Organization [employer] Address [address] [place] [address] Care Team Providers Care Obstetrics Scrub Nurse Name Role Phone Angelique Valentine MD Primary Care Provider [phone] Reason for Visit * Reason Onset Date Comments PROCEDURE 06/12/2025 Encounter Details Date Type Department Care Team (Late st Contact Info) Description 06/12/2025 Telephone Plastic & Reconstructive Surgery - [place] [address] [facility] [address] [place] [address] Luis Alberto Marinelli, DO [address] [place] [address] Social History Tobacco Use Types Packs/Day Years [...] as of this encounter Progress Notes * Ger Estrada - 06/13/2025 8:42 AM EDT Attempted to call this patient several times already. Will her back to to schedule an appt now thather phone is working * Renetta Huerta - 06/12/2025 4:07 PM EDT Patient was seen in office on 04/15 for consult for bcc on left ear. She is calling in stating she recently got her phone fixed an was wondering if any one has attempted to reach out to her to schedule her procedure, since she has yet to hear from anyone yet. Please advise thanks documented in this encounter Plan of Treatment Upcoming Encounters Date Type Department Care Team (Latest Contact Info) Description 07/01/2025 10:30 AM EDT Hospital Encounter [facility] Main OR [address] [place] [phone] Luis Alberto Marinelli, DO [address] [place] [phone] 07/01/2025 10:30 AM EDT - 07/01/2025 12:00 PM EDT Surgery [facility] OR [address] [place] [phone] Luis Alberto Marinelli, [address] [place] [phone] EXCISION LESION *left ear WITH FROZEN [[id number] (CPT )] 07/11/2025 10:30 AM EDT Office Visit Plastic & Reconstructive Surgery - [place] [address] [place] [phone] Sidra Canales PA [address] [place] [phone] Scheduled Procedures Name Priority Associated Diagnoses Date/Ti me EXCISION LESION EAR Basal cell carcinoma of left ear 07/01/2025 10:30 AM EDT REPAIR LACERATION Basal cell carcinoma of left ear 07/01/2025 10:30 AM EDT documented as of this encounter Visit Diagnoses Not on filedocumented in this encounter Care Teams Obstetrics Scrub Nurse Relationship Specialty Start Date End Date Angelique Valentine MD 2 [facility] , [address] Physician Associ D/B/A: [facility] SEBASTIÁN Durbin PCP - General Internal Medicine 08/23/17 documented as of this encounter
--- OUTSIDE RECORDS SUMMARY | 2025-06-17 12:28 | XMS_ITS | Encounter Summary ---
Author Organization [employer] Address [address] [facility] 7[address] [place] [address] Care Team Providers Care Warehouse Hand Name Role Phone Unavailable Primary Care Provider Unavailabl e Encounter Details Date Type Department Care Team (Late st Contact Info) Description 09/03/2022 Abstract [facility] ADULT DENTAL [address] [place] [address] Dental, Provider, DDS Social History Tobacco Use [...] Description 09/09/2025 10:30 AM EST Office Visit [facility] OPTOMETRY [address] [place] [address] Nirali Luciano, OD [address] [place] [address] documented as of this encounter Procedures Procedure Name Priority Date/Time Associated Diagnosis Comments 25 MIFL COMPOSITE FILLING Routine 09/03/2022 12:00 AM EST documented in this encounter Visit Diagnoses Not on filedocumented in this encounter
--- OUTSIDE RECORDS SUMMARY | 2025-06-17 12:28 | XMS_ITS | Encounter Summary ---
Author Organization [employer] Address [address] [place] [address] Care Team Providers Care Appliance Service Technician Name Role Phone Angelique Valentine MD Primary Care Provider [phone] Reason for Visit * Reason Onset Date Comments Auth 06/14/2025 06/14/2025 RAJENDRA Howe pproved Encounter Details Date Type Department Care Team (Late st Contact Info) Description 06/14/2025 Telephone General Surgery - [place] [facility] [address] [place] [address] Luis Alberto Marinelli DO [address] [place] [address] Social History Tobacco Use Types [...] encounter Progress Notes * Ger Estrada - 06/14/2025 9:20 AM EDT 06/14/2025 APPROVED BY RAJENDRA 05/31/2025-10/02/2025 [id number] documented in this encounter Plan of Treatment Upcoming Encounters Date Type Department Care Team (Latest Contact Info) Description 07/01/2025 10:30 AM EDT Hospital Encounter [facility] Main OR [address] [place] [phone] Luis Alberto Marinelli DO [address] [place] [phone] 07/01/2025 10:30 AM EDT - 07/01/2025 12:00 PM EDT Surgery [facility] Main OR [address] [place] [phone] uLis Alberto Marinelli DO [address] [place] [phone] EXCISION LESION *left ear WITH FROZEN [97122 (CPT )] 07/11/2025 10:30 AM EDT Office Visit Plastic & Reconstructive Surgery [facility] [address] [place] [address] Sidra Canales PA [address] [place] [phone] Scheduled Procedures Name Priority Associated Diagnoses Date/Ti me EXCISION LESION EAR Basal cell carcinoma of left ear 07/01/2025 10:30 AM EDT REPAIR LACERATION Basal cell carcinoma of left ear 07/01/2025 10:30 AM EDT documented as of this encounter Visit Diagnoses Not on filedocumented in this encounter Care Teams Appliance Service Technician Relationship Specialty Start Date End Date Angelique Valentine MD [address] [place] [address] , [address] Physician Associ D/B/A: [facility] [place], [place] PCP - General Internal Medicine 08/23/17 documented as of this encounter
--- OUTSIDE RECORDS SUMMARY | 2025-06-17 12:29 | XMS_ITS | Clinical Summary ---
Author Organization [employer] Address [address] [facility] 7t [place] [address] Care Team Providers Care Timber Grader Name Role Phone Unavailable Primary Care Provider [...] Description 09/09/2025 10:30 AM EST Office Visit [facility] OPTOMETRY [address] [place] [address] Mustapha, Nirali, OD [address] [place] [address] Health Maintenance Due Date Last Done Comments [...] (2 - Td or Tdap) 06/23/2022 06/23/2012 RSV Patients and Patients Aged 60 years or older (1 - 1-dose 75+ series) 2024 Tobacco Screening 05/30/2025 05/30/2024 COVID-19 Vaccine ( - season) 2025 Influenza Vaccine (#1) 2025 8, [...] Most Recently Relevant to Health Maintenance Insurance [facility] NURSING HOME OPTIONS (HMO D-SNP) [place] [address]
== END 2025-06-17 10:22 | disposition home or self-care (01) ==
LOC: HO.HGS 10:00
PROVIDERS: PCP Internal Medicine; Visit Provider Surgery
DX: K42.9 Umbilical hernia without obstruction or gangrene (principal)
CPT/HCPCS: 99204

== ENCOUNTER → 2025-06-17 10:00 | Outpatient (BNVA) | payer OTHER, SELFPAY | PROVIDERS: PCP Internal Medicine; Visit Provider Surgery | DX: K42.9 Umbilical hernia without obstruction or gangrene (principal) | CPT/HCPCS: 99202 ==

== ENCOUNTER 2025-07-09 09:12 | Emergency (ER) | payer OTHER, SELFPAY ==
[2025-07-09 09:26] VITALS: BP 198/81; PULSE 66; RESP 18; TEMP 37; O2SAT 100; BMI 31.1
--- NOTE | 2025-07-09 09:33 | ED.GENADULT ---
HPI - General Adult General Chief complaint: Ear Problems Stated complaint: Lac behind L ear Time Seen by Provider: 07/09/25 09:32 Source: patient, RN notes reviewed, old records reviewed and interpreter translator Mode of arrival: ambulatory Limitations: language barrier History of Present Illness ED Provider: Dasia HPI narrative: Patient is a 74-year-old female with reported history of skin cancer behind left ear. She presents to the emergency department complaining of pain, itching, and bleeding from this area. Denies fevers. Denies purulent drainage. States she has not seen her surgeon yet regarding this but has been upcoming appointment. Noted to be hypertensive in triage and has history of hypertension but has not taken her blood pressure medications. MD complaint: Skin irritation Related Data Home Medications ?Medication ?Instructions ?Recorded ?Confirmed escitalopram oxalate 10 mg tablet 10 mg PO DAILY 05/17/22 06/17/25 aripiprazole 5 mg tablet 5 mg PO DAILY 07/09/22 06/17/25 ipratropium 0.5 mg-albuterol 3 mg 3 ml inhalation QID PRN Shortness 07/25/22 06/17/25 (2.5 mg base)/3 mL nebulization Of Breath soln nebulizers 09/30/23 06/17/25 diphenhydramine HCl 25 mg tablet 25 mg PO BEDTIME PRN 03/25/25 06/17/25 (Banophen) Previous Rx's ?Medication ?Instructions ?Recorded lift recliner #1 ea 01/08/23 tamsulosin 0.4 mg capsule (Flomax) 0.4 mg PO DAILY 14 days #14 caps 07/15/23 triamcinolone acetonide 0.5 % 1 appl topical BID #30 grams 07/26/23 topical cream adona pillow seat and cushion #1 ea 09/07/23 fluocinolone acetonide oil 0.01 % 5 drp otic (ear) left BID 7 days 12/01/23 ear drops (DermOtic Oil) #20 mL mepolizumab 100 mg/mL subcutaneous 100 mg subcut Q4W #1 mL 01/06/24 syringe (Nucala) hand held shower head #1 ea 01/10/24 latex gloves #48 ea 01/10/24 underpads (Bed Underpads) #100 ea 01/10/24 acetaminophen 650 mg 650 mg PO Q8H PRN pain 30 days #90 03/06/24 tablet,extended release tabs air conditioner #1 ea 04/01/24 hydrocortisone 1 % topical cream 1 appl topical BID PRN skin 04/26/24 (Anti-Itch (hydrocortisone)) irritation 2 weeks #28.4 grams losartan 25 mg tablet 25 mg PO DAILY 90 days #90 tabs 05/27/24 non disposable bed pads #10 ea 06/06/24 umeclidinium 62.5 mcg/actuation 1 inh inhalation DAILY 90 days #3 06/28/24 blister powder for inhalation ea (Incruse Ellipta) prednisone 5 mg tablet 5 mg PO DAILY #30 tabs 07/19/24 albuterol sulfate 90 mcg/actuation 2 puff PO Q6H PRN for wheezing #18 08/01/24 aerosol inhaler (Ventolin HFA) ea albuterol sulfate 2.5 mg/3 mL 2.5 mg (3 mL) inhalation Q6H PRN 08/09/24 (0.083 %) solution for nebulization shortness of breath or wheezing 30 days #180 mL incontinence pad, liner, disp #60 ea 10/09/24 quilted wipes #200 ea 10/09/24 loratadine 10 mg tablet 10 mg PO DAILY 90 days #90 tabs 10/30/24 diclofenac sodium 1 % topical gel 2 g topical QID PRN pain (scale 03/25/25 (Arthritis Pain (diclofenac)) score 4-6) #100 grams fenofibrate 54 mg tablet 54 mg PO BEDTIME 90 days #90 tabs 04/14/25 cholecalciferol (vitamin D3) 25 25 mcg PO DAILY 90 days #90 caps 04/23/25 mcg (1,000 unit) capsule sennosides 8.6 mg tablet (Natural 17.2 mg (2 x 8.6 mg) PO BEDTIME 04/29/25 Senna Laxative) constipation #60 tabs rosuvastatin 20 mg tablet 20 mg PO DAILY 90 days #90 tabs 05/01/25 recliner #1 ea 05/16/25 dronedarone 400 mg tablet (Multaq) 400 mg PO BID #180 tabs 05/29/25 apixaban 5 mg tablet (Eliquis) 5 mg PO BID #180 tabs 06/19/25 levothyroxine 25 mcg tablet 25 mcg PO DAILY 90 days #90 tabs 06/19/25 diltiazem HCl 120 mg 120 mg PO DAILY #90 caps 06/24/25 capsule,extended release 24 hr betamethasone dipropionate 0.05 % 1 appl topical DAILY PRN skin 07/09/25 topical ointment irritation 2 weeks #15 grams Allergies Allergy/AdvReac Type Severity Reaction Status Date / Time sulfamethoxazole (From Allergy Severe Rash Verified 07/09/25 09:28 Bactrim) trimethoprim (From Bactrim) Allergy Severe Rash Verified 07/09/25 09:28 levofloxacin (From LEVAQUIN) Allergy Intermediate RASH SOB, Verified 07/09/25 09:28 DIZZYNESS tramadol AdvReac Severe abdominal Verified 07/09/25 09:28 pain, vomiting atorvastatin (Lipitor) AdvReac Intermediate nausea Verified 07/09/25 09:28 codeine (CODEINE) AdvReac Intermediate NAUSEA & Verified 07/09/25 09:28 VOMITING morphine (MORPHINE) AdvReac Intermediate NAUSEA & Verified 07/09/25 09:28 VOMITING pravastatin AdvReac Intermediate myalgia Verified 07/09/25 09:28 rosuvastatin AdvReac Mild myalgia Verified 07/09/25 09:28 Review of Systems Review of Systems: as per hpi Yes all other systems are reviewed and are negative Constitutional: Constitutional: Reports as per HPI PMFSH Past Medical History Medical History Asthma Skin cancer CKD (chronic kidney disease) stage 3, GFR 30-59 ml/min Chronic deep vein thrombosis (DVT) Right femoral vein DVT Osteoarthritis of knees, bilateral Mild recurrent major depression Polyarthralgia Osteopenia (~2007) Tubular adenoma of colon (~2009) Breast pain, left Postmenopausal Asthma-COPD overlap syndrome GERD (gastroesophageal reflux disease) HTN (hypertension) Paroxysmal atrial fibrillation (~01/2021) Dyslipidemia Hypothyroidism Pneumonia Eosinophilia Steroid dependent Chronic allergic rhinitis Surgical History History of right breast biopsy (~1998) History of colonoscopy History of D&C (~2002) History of tubal ligation History of shoulder surgery (~2006) History of nasal polypectomy (~2007) History of knee surgery Family History Family History Father Medical history unknown Mother Alzheimer disease Daughter Lupus Other Arthritis Social History Social History Household Members: None Housing: House Are you a primary health care attorney to a significant other at home: No Do you presently have visiting nurse or other home services: Yes Alcohol intake: never Patient Tobacco Use Status: Former Tobacco user Tobacco use type: Cigarette e-Cigarette/Vaping Use: Never Used Second Hand Smoke Exposure: No Advance Directives Date on File: 11/10/20 service: No Current occupational status: disabled Cognitive needs: Yes (cane) Hearing needs: No Vision needs: Yes (glasses) Physical Exam ED Vital Signs: Vital Signs - 24 hr 07/09/25 09:26 Temperature 98.6 F Pulse Rate 66 Respiratory Rate 18 Blood Pressure 198/81 H Pulse Oximetry 100 Oxygen Delivery Method Room Air BMI result Body Mass Index 31.1 Vital signs have been reviewed and appear to be correct. Blood pressure elevated. Heart rate normal. Respiratory rate normal. Temperature normal. Oxygen saturation normal. Const General: cooperative, healthy appearing and no acute distress Orientation/consciousness: oriented to person, oriented to place, oriented to time and patient oriented x3 Limitations: no limitations [facility] Head: Yes normocephalic and Yes atraumatic Ears: hearing grossly normal bilaterally, TM's normal bilaterally, EAC's normal, mastoids normal bilaterally, no periauricular adenopathy and external ear abnormal other (1cm diameter scab behind left auricle, no active bleeding, no warmth, erythema or drainage) General nose exam: Normal external nose present Face and sinus: Yes face symmetric Mouth: oropharynx normal and moist mucous membranes Throat: Yes uvula midline Eyes Pupils: Equal, round and reactive pupils present Neck Neck: Yes normal visual inspection and Yes supple Resp Effort & Inspection: normal respiratory effort and able to speak in complete sentences Auscultation: clear to auscultation bilaterally Cardio Rate: regular rate Rhythm: regular rhythm Heart sounds: S1 normal heart sound present and S2 normal heart sound present GI Palpation (GI): Soft to palpation and nontender Auscultation: normoactive bowel sounds General: Yes no CVA tenderness Back/Spine/Pelvis Back: no CVA tenderness Skin General skin exam: elasticity normal and turgor normal Neuro General: oriented to person, oriented to place, oriented to time, patient oriented x3, moves all extremities, no focal motor deficits and CN's II-XI intact bilaterally Cranial nerves: Yes Equal, round and reactive pupils present Cognition (Neuro): normal cognition Extrem General: Yes full ROM, Yes no pedal edema and Yes no calf tenderness Psych Mental Status: mental status grossly normal Affect: normal affect Thought process: Normal thought process present Medical Decision Making Medical Decision Making [facility] Narrative: Patient is a 74-year-old female with reported history of skin cancer behind left ear. On exam patient is awake, A+Ox3, VS WNL, afebrile, normal neurological exam without focal deficits, physical exam findings as above. Given reported symptoms and physical exam findings, initial differential includes but is not limited to carcinoma, cellulitis. No evidence of infection on physical exam. Case discussed with Dr. Esparza who advises that given patient's report of carcinoma, will defer any topical or oral treatment to Dermatology or surgery. Discussed with patient that she can use an aphw-akh-dgjrssh antihistamine for itching and advised that she follow-up with whomever diagnosed her carcinoma. Return precautions discussed. Patient verbalized understanding of and agreement with plan. Differential Diagnosis Differential Diagnoses: The differential diagnosis associated with the presentation includes As per [facility] External Record Review External record reviewed: Inpatient record, Office record and Outpatient record Discharge Plan Discharge Clinical Impression: Irritation symptom of skin Patient Disposition: Home, Self-Care Additional Instructions: You were evaluated in the emergency department today for skin irritation and bleeding to an area of known skin cancer on your ear. We recommend that you follow-up with your surgeon to discuss what treatments might be appropriate for your symptoms. You can use a daily ogqr-lec-prilpkn antihistamine such as Claritin or Zyrtec. If the area is bleeding, cover with a bandage. Return to the emergency department if you develop increased redness, warmth, thick yellow drainage, fever or other new or concerning symptoms. Prescriptions: No Action (DME) lift recliner See Rx Instructions .Route .MEDSUPPLY Qty: 1 0RF Rx Instructions: As directed (DME) adona pillow seat and cushion See Rx Instructions .Route .MEDSUPPLY Qty: 1 0RF Rx Instructions: As directed fluocinolone acetonide oil [DermOtic Oil] 0.01 % drops 5 drp otic (ear) left BID 7 Days Qty: 20 0RF Nucala 100 mg/mL syringe 100 mg subcut Q4W Qty: 1 11RF (DME) underpads [Bed Underpads] Pad See Rx Instructions .Route Qty: 100 11RF Rx Instructions: As directed (DME) latex gloves Misc See Rx Instructions .Route Qty: 48 11RF Rx Instructions: Use 1 pair of gloves twice a day (DME) hand held shower head See Rx Instructions .Route .MEDSUPPLY Qty: 1 0RF Rx Instructions: As directed (DME) air conditioner See Rx Instructions .Route .MEDSUPPLY Qty: 1 0RF Rx Instructions: As directed losartan 25 mg tablet 25 mg PO DAILY 90 Days Qty: 90 1RF (DME) non disposable bed pads See Rx Instructions .Route .MEDSUPPLY Qty: 10 0RF Rx Instructions: As directed Incruse Ellipta 62.5 mcg/actuation blister with device 1 inh inhalation DAILY 90 Days Qty: 3 3RF prednisone 5 mg tablet 5 mg PO DAILY Qty: 30 11RF albuterol sulfate [Ventolin HFA] 90 mcg/actuation HFA aerosol inhaler 2 puff PO Q6H PRN (Reason: for wheezing) Qty: 18 12RF albuterol sulfate 2.5 mg /3 mL (0.083 %) solution for nebulization 2.5 mg inhalation Q6H PRN (Reason: shortness of breath or wheezing) 30 Days Qty: 180 11RF (DME) incontinence pad, liner, disp Pad See Rx Instructions .Route Qty: 60 11RF Rx Instructions: Use 1 pad twice a day (DME) quilted wipes See Rx Instructions .Route .MEDSUPPLY Qty: 200 12RF Rx Instructions: As directed loratadine 10 mg tablet 10 mg PO DAILY 90 Days Qty: 90 3RF fenofibrate 54 mg tablet 54 mg PO BEDTIME 90 Days Qty: 90 0RF cholecalciferol (vitamin D3) 25 mcg (1,000 unit) capsule 25 mcg PO DAILY 90 Days Qty: 90 0RF rosuvastatin 20 mg tablet 20 mg PO DAILY 90 Days Qty: 90 0RF (DME) recliner See Rx Instructions .Route .MEDSUPPLY Qty: 1 0RF Rx Instructions: As directed Multaq 400 mg tablet 400 mg PO BID Qty: 180 3RF Rx Instructions: must administer with a meal/food Eliquis 5 mg tablet 5 mg PO BID Qty: 180 3RF levothyroxine 25 mcg tablet 25 mcg PO DAILY 90 Days Qty: 90 1RF diltiazem HCl 120 mg capsule,extended release 24hr 120 mg PO DAILY Qty: 90 1RF betamethasone dipropionate 0.05 % ointment 1 appl topical DAILY PRN (Reason: skin irritation) 14 Days Qty: 15 0RF ipratropium-albuterol 0.5 mg-3 mg(2.5 mg base)/3 mL solution for nebulization 3 ml inhalation QID PRN (Reason: Shortness Of Breath) tamsulosin [Flomax] 0.4 mg capsule 0.4 mg PO DAILY 14 Days Qty: 14 0RF diclofenac sodium [Arthritis Pain (diclofenac)] 1 % gel 2 g topical QID PRN (Reason: pain (scale score 4-6)) Qty: 100 0RF Rx Instructions: apply to right knee triamcinolone acetonide 0.5 % cream 1 appl topical BID Qty: 30 0RF hydrocortisone [Anti-Itch (HC)] 1 % cream 1 appl topical BID PRN (Reason: skin irritation) 14 Days Qty: 28.4 0RF acetaminophen 650 mg tablet extended release 650 mg PO Q8H PRN (Reason: pain) 30 Days Qty: 90 0RF aripiprazole 5 mg tablet 5 mg PO DAILY escitalopram oxalate 10 mg tablet 10 mg PO DAILY (DME) nebulizers Misc See Rx Instructions .Route Rx Instructions: As directed sennosides [Natural Senna Laxative] 8.6 mg tablet 17.2 mg PO BEDTIME Qty: 60 3RF diphenhydramine HCl [Banophen] 25 mg tablet 25 mg PO BEDTIME PRN Interventions: ED Discharge Assessment Last Done: 07/09/25 09:39 Discharge Date/Time: 07/09/25 09:39 Print Language: Guinean
[2025-07-09 09:39] VITALS: BP 198/81; PULSE 66; RESP 18; TEMP 37; O2SAT 100
--- OUTSIDE RECORDS SUMMARY | 2025-07-09 10:53 | XMS_ITS | Encounter Summary ---
Author Organization [employer] Address [address] [place] [address] Care Team Providers Care Senior Data Mining Analyst Name Role Phone Angelique Valentine MD Primary Care Provider [phone] Reason for Visit * Reason Onset Date Comments SURGERY CANCELLED 06/28/2025 Encounter Details Date Type Department Care Team (Late st Contact Info) Description 06/28/2025 Telephone Plastic & Reconstructive Surgery - [place] [address] [place] [address] Luis Alberto Marinelli, DO [address] [place] [address] Social History Tobacco Use Types [...] as of this encounter Progress Notes * Renetta Huerta - 06/28/2025 1:39 PM EDT Patient called in regards to her upcoming procedure this Sunday 07/01. I informed unfortunately it'scancelled due to provider going out on a medical leave. Patient was understanding and I will let referring provider (Jo) know. documented in this encounter Plan of Treatment Not on file documented as of this encounter Visit Diagnoses Not on filedocumented in this encounter Care Teams Senior Data Mining Analyst Relationship Specialty Start Date End Date Angelique Valentine MD [address] [place] [address] , [address] [facility] Physician Associ D/B/A: [facility] SEBASTIÁN Durbin PCP - General Internal Medicine 08/23/17 documented as of this encounter
--- OUTSIDE RECORDS SUMMARY | 2025-07-09 10:53 | XMS_ITS | Encounter Summary ---
Author Organization [employer] Address [address] [facility] [address] [place] [address] Care Team Providers Care New Car Sales Manager Name Role Phone Unavailable Primary Care Provider Unavailabl e Encounter Details Date Type Department Care Team (Late st Contact Info) Description 09/03/2022 Abstract [facility] ADULT DENTAL [address] [place] [address] Dental, Provider, DDS Social History Tobacco Use [...] Description 09/09/2025 10:30 AM EST Office Visit [facility] OPTOMETRY [address] [place] [address] Nirali Luciano, OD [address] [place] [address] documented as of this encounter Procedures Procedure Name Priority Date/Time Associated Diagnosis Comments 25 MIFL COMPOSITE FILLING Routine 09/03/2022 12:00 AM EST documented in this encounter Visit Diagnoses Not on filedocumented in this encounter
--- OUTSIDE RECORDS SUMMARY | 2025-07-09 10:53 | XMS_ITS | Clinical Summary ---
Author Organization [employer] Address [address] [facility] 7[address] [place] [address] Care Team Providers Care Aoc Aadc Operations Staff Officer Name Role Phone Unavailable Primary Care Provider [...] Description 09/09/2025 10:30 AM EST Office Visit [facility] OPTOMETRY [address] [place] [address] Mustapha, Nirali, OD [address] [place] [address] Health Maintenance Due Date Last Done Comments [...] Most Recently Relevant to Health Maintenance Insurance [facility] SENIOR LIVING OPTIONS (HMO D-SNP) [place] [address]
--- OUTSIDE RECORDS SUMMARY | 2025-07-09 10:53 | XMS_ITS | Clinical Summary ---
Author Organization [address] [place] [address] Address [address] [place] [address] Phone Care Team Providers Care Supervisor Opening And Picking Name Role Phone Angelique Valentine MD Primary Care Provider [phone] Allergies Active Allergy Reactions Criticality Noted Date [...] Encounters Date Type Department Care Team Description 06/28/2025 Telephone Plastic & Reconstructive Surgery [facility] [address] [facility] [address] [place] [address] Luis Alberto Marinelli, 06/17/2025 Telephone General Surgery [address] [place] [address] Luis Alberto Marinelli, 06/14/2025 Telephone General Surgery - [place] [address] [facility] [address] [place] [address] Luis Alberto Marinelli, DO 06/12/2025 Telephone Plastic & Reconstructive Surgery [facility] [address] [facility] [address] [place] [address] Luis Alberto Marinelli, 04/15/2025 10:00 AM EDT Consult Plastic & Reconstructive Surgery [facility] [address] [facility] [address] [place] [address] Sidra Canales PA 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); Basal cell carcinoma of left hand; Current use of retirement anticoagulation from Last 3 Months Surgical History [...] Health Maintenance Due Date Last Done Comments Colorectal Cancer Screening: Colonoscopy 1950 Zoster Vaccines (1 of 2) 1999 Pneumococcal Vaccine: 50+ Years (2 of 2 - PCV) 05/10/2016 05/10/2015, 08/21/2002 DTaP,Tdap,and Td Vaccines (2 - Td or Tdap) 06/23/2022 06/23/2012 Cholesterol Screening (Lipid Panel) 09/05/2022 Falls Risk Assessment 09/05/2022 Hepatitis C [...] patient's age to complete this topic Insurance [employer] MEDICARE Member Subscriber Plan / Payer (Ef fective 2016-Present) Name:Sona Pinon Relation to Subscriber:Self Name:Sona Pinon Payer ID:[id number] Group ID:[id number] Type:Not on file Address: [place] [address] [address] [id number] Care Teams Supervisor Opening And Picking Relationship Specialty Start Date End Date Angelique Valentine MD [address] [place] [address] , [address] [facility] Physician Associ D/B/A: [facility] [place], [place] PCP - General Internal Medicine 08/23/17
--- OUTSIDE RECORDS SUMMARY | 2025-07-09 10:53 | XMS_ITS | Encounter Summary ---
Author Organization [employer] Address [address] [facility] 7t [place] [address] Care Team Providers Care Lead Generation Specialist Name Role Phone Unavailable Primary Care Provider Unavailabl e Reason for Visit * Reason Onset Date Comments mail appt slip with address of offfice Encounter Details Date Type Department Care Team (Late Contact Info) Description 11/09/2024 Telephone [facility] ADULT DENTAL [address] [place], [place] [id number] Frank Aldridge mail appt slip with address [...] Description 09/09/2025 10:30 AM EST Office Visit [facility] OPTOMETRY [address], [place] [id number] Mustapha, Nirali, OD [address] [place] [address] documented as of this encounter Visit Diagnoses Not on filedocumented in this encounter
--- OUTSIDE RECORDS SUMMARY | 2025-07-09 10:53 | XMS_ITS | Clinical Summary ---
Author Organization [facility] Address [address] [facility] [address] [place] [address] Phone Care Team Providers Care Coremaking Supervisor Name Role Phone Angelique Li MD Primary Care Provider [phone] Allergies Active Allergy Reactions Criticality Noted Date [...] age to complete this topic Insurance [facility] Dual SNP ([id number]) [facility] One Care Dual SNP ([id number]) Care Teams Coremaking Supervisor Relationship Specialty Start Date End Date Angelique Li MD [address] [facility] [address] [place] [address] PCP - General Internal Medicine 04/07/22
== END 2025-07-09 09:39 | disposition home or self-care (01) ==
PROVIDERS: Emergency Provider Emergency Medicine; PCP Internal Medicine
DX: L98.8 Other specified disorders of the skin and subcutaneous tissue (principal); I12.9 Hypertensive chronic kidney disease with stage 1 through stage 4 chronic kidney disease, or unspecified chronic kidney disease; N18.30 Chronic kidney disease, stage 3 unspecified; Z85.828 Personal history of other malignant neoplasm of skin; Z88.1 Allergy status to other antibiotic agents; Z88.2 Allergy status to sulfonamides
CPT/HCPCS: 99282

== ENCOUNTER 2025-07-15 09:01 | Outpatient (AMB) | payer OTHER, SELFPAY ==
[2025-07-15 09:05] VITALS: BP 168/76; PULSE 83; RESP 18; TEMP 36.2; O2SAT 98; BMI 31.6
--- NOTE | 2025-07-15 09:05 | A.OFFPC_ITS ---
Vital Signs 07/15/25 09:05 Height 5 ft 4 in Weight 184 lb 6 oz BMI 31.6 BP 168/76 H Blood Pressure Location Lt brachial Position Sitting Respiration 18 Pulse 83 Pulse Source Pulse Oximeter Temp 97.1 F Temp Source Temporal Artery Scan Pulse Oximetry (%) 98 Oxygen Delivery Method Room Air Intake Visit Reasons: office visit Continuous Washer Operator Required: No Accompanied by: Self / Same As Patient Allergies sulfamethoxazole (From Bactrim) Allergy (Severe, Verified 07/15/25 09:34) Rash trimethoprim (From Bactrim) Allergy (Severe, Verified 07/15/25 09:34) Rash levofloxacin (From LEVAQUIN) Allergy (Intermediate, Verified 07/15/25 09:34) RASH SOB, DIZZYNESS tramadol Adverse Reaction (Severe, Verified 07/15/25 09:34) abdominal pain, vomiting atorvastatin (Lipitor) Adverse Reaction (Intermediate, Verified 07/15/25 09:34) nausea codeine (CODEINE) Adverse Reaction (Intermediate, Verified 07/15/25 09:34) NAUSEA & VOMITING morphine (MORPHINE) Adverse Reaction (Intermediate, Verified 07/15/25 09:34) NAUSEA & VOMITING pravastatin Adverse Reaction (Intermediate, Verified 07/15/25 09:34) myalgia rosuvastatin Adverse Reaction (Mild, Verified 07/15/25 09:34) myalgia Medication List - Last Reconciled 07/15/25 by Angelique Valentine MD acetaminophen ER 650 mg PO Q8H PRN 30 days [adona pillow seat and cushion As directed] [air conditioner As directed] albuterol sulfate 90 mcg/actuation (Ventolin HFA) 2 puffs PO Q6H PRN albuterol sulfate 2.5 mg (3 mL) inhalation Q6H PRN 30 days apixaban (Eliquis) 5 mg PO BID aripiprazole 5 mg PO DAILY betamethasone dipropionate 0.05% 1 appl topical DAILY PRN 2 weeks cholecalciferol (vitamin D3) 25 mcg PO DAILY 90 days diclofenac sodium 1% (Arthritis Pain (diclofenac)) 2 grams topical QID PRN diltiazem HCl CD 120 mg PO DAILY diphenhydramine HCl (Banophen) 25 mg PO BEDTIME PRN escitalopram oxalate 10 mg PO DAILY fenofibrate 54 mg PO BEDTIME 90 days fluocinolone acetonide oil 0.01% (DermOtic Oil) 5 drps otic (ear) left BID 7 days [hand held shower head As directed] hydrocortisone 1% (Anti-Itch (hydrocortisone)) 1 appl topical BID PRN 2 weeks incontinence pad, liner, disp Use 1 pad twice a day ipratropium-albuterol 0.5 mg-3 mg(2.5 mg base)/3 mL 3 mL inhalation QID PRN latex gloves Use 1 pair of gloves twice a day levothyroxine 25 mcg PO DAILY 90 days [lift recliner As directed] loratadine 10 mg PO DAILY 90 days losartan 25 mg PO DAILY 90 days mepolizumab (Nucala) 100 mg subcut Q4W nebulizers As directed [non disposable bed pads As directed] prednisone 5 mg PO DAILY [quilted wipes As directed] [recliner As directed] rosuvastatin 20 mg PO DAILY 90 days sennosides (Natural Senna Laxative) 17.2 mg (2 x 8.6 mg) PO BEDTIME tamsulosin (Flomax) 0.4 mg PO DAILY 14 days triamcinolone acetonide 0.5% 1 appl topical BID umeclidinium 62.5 mcg/actuation (Incruse Ellipta) 1 inh inhalation DAILY 90 days underpads (Bed Underpads) As directed Tobacco use date assessed: 07/15/25 Fall risk assessment: No Falls in past year Last assessed Fall Risk: 07/15/25 Dental Screening Dental Screen Date: 07/15/25 Did you have a dental visit in the last 12 months?: No Did you have a dental problem in the last 6 months where you did not have access to dental care?: No Was dental information given to patient?: No HPI HPI Comments History of Present Illness Details The patient is a 74-year-old female presenting with management of hemorrhoids, skin cancer on the ear, and chronic kidney disease. She also has hypertension in which BP is elevated today and will be recheck in 3 weeks by nurse navigator. SHe did took her Losartan. Has hyperlipidemia stable with statin and I will discontinue Fenofibrate. Also has hypothyroidism. The patient reports persistent hemorrhoids that have not responded to ysyv-jzj-[id number] treatments. She has been using topical applications without relief, and surgical intervention may be considered if symptoms persist. The patient has a history of skin cancer on the ear, requiring reconstruction. She has been referred to plastic surgery for further evaluation and potential intervention. Chronic kidney disease is noted with a GFR of 26, last checked in March. The parathyroid hormone was elevated, attributed to renal issues. Laboratory tests are scheduled for September to monitor kidney function and related parameters. [facility] Medical History (Updated 07/15/25 @ 09:55 by Angelique Valentine MD) Asthma Skin cancer CKD (chronic kidney disease) stage 3, GFR 30-59 ml/min Chronic deep vein thrombosis (DVT) Right femoral vein DVT Osteoarthritis of knees, bilateral Mild recurrent major depression Polyarthralgia Osteopenia (~2007) Tubular adenoma of colon (~2009) Breast pain, left Postmenopausal Asthma-COPD overlap syndrome GERD (gastroesophageal reflux disease) HTN (hypertension) Paroxysmal atrial fibrillation (~01/2021) Dyslipidemia Hypothyroidism Pneumonia Eosinophilia Steroid dependent Chronic allergic rhinitis Surgical History History of right breast biopsy (~1998) History of colonoscopy History of D&C (~2002) History of tubal ligation History of shoulder surgery (~2006) History of nasal polypectomy (~2007) History of knee surgery Family History Father Medical history unknown Mother Alzheimer disease Daughter Lupus Other Arthritis Social History Household Members: None Housing: House Are you a primary wound care rn to a significant other at home: No Do you presently have visiting nurse or other home services: Yes Alcohol intake: never Patient Tobacco Use Status: Former Tobacco user Tobacco use type: Cigarette e-Cigarette/Vaping Use: Never Used Second Hand Smoke Exposure: No Advance Directives Date on File: 11/10/20 service: No Current occupational status: disabled Cognitive needs: Yes (cane) Hearing needs: No Vision needs: Yes (glasses) Questionnaire Thrive Questionnaire Date Thrive assessed: 12/26/24 I am a: Patient What is your living situation today?: I have a steady place to live Within the past 12 months, did the food you bought not last and you didn't have the money to get more?: Never true Within the past 12 months, did you worry whether your food would run out before you got money to buy more?: Never true Do you have trouble paying for medicines?: No Do you have trouble getting transportation to medical appointments?: No Do you have trouble paying your heating and electricity bill?: No Do you have trouble taking care of your child, family member or friend?: No Do you have trouble with day-to-day activities such as bathing, preparing meals, shopping, managing finances, etc.?: No Are you currently unemployed and looking for a job?: Yes Are you interested in more education?: No Please select the resources that you would like help with: None Currently or been in a relationship where the following occur: No concerns reported THRIVE Score: 0 FABIOLA-7 AMB Questionnaire FABIOLA-7 Date FABIOLA - 7 assessed: 12/26/24 Source: Developed by Drs. Mk Zapata, Roseline Pantoja, Nura Bailon and colleagues, with an educational camila from [employer]. Review of Systems Const All systems reviewed & are unremarkable except as noted in HPI and below Card Denies chest pain at rest, Denies chest pain with activity, Denies edema, Denies irregular heart rhythm, Denies claudication, Denies dyspnea, Denies dyspnea on exertion, Denies orthopnea, Denies paroxysmal nocturnal dyspnea and Denies slow heart rate Resp Denies cough, Denies dyspnea and Denies dyspnea on exertion Neuro Denies lack of coordination Physical exam (Primary Care) Vital Signs: Last Vital Signs Temp 97.1 F 07/15/25 09:05 Pulse 83 07/15/25 09:05 Resp 18 07/15/25 09:05 BP 168/76 H 07/15/25 09:05 Pulse Ox 98 07/15/25 09:05 Oxygen Delivery Method Room Air 07/15/25 09:05 BMI result Body Mass Index 31.6 Tobacco/Smoking Status: Tobacco use Status Tobacco use date assessed 07/15/25 07/15/25 09:19 Patient Tobacco Use Status Former Tobacco user 07/15/25 09:19 Tobacco use type Cigarette 07/15/25 09:19 e-Cigarette/Vaping Use Never Used 07/15/25 09:19 Thrive Assessment: Date of Thrive Assessment Date Thrive assessed 12/26/24 07/15/25 09:19 Currently or been in a relationship where the following occur: No concerns reported Resp Effort & Inspection: normal respiratory effort Auscultation: clear to auscultation bilaterally Cardio Jugular venous distension: no JVD Rate: regular rate Rhythm: regular rhythm Heart sounds: S1 normal heart sound present and S2 normal heart sound present Extrem General: Yes full ROM Coding Level of Care Code Est Pt Level 4 (76515) Complex EM visit Add On G2211 Diagnoses Essential hypertension I10 Paroxysmal atrial fibrillation I48.0 Dyslipidemia E78.5 Hypothyroidism, unspecified type E03.9 Hypothyroidism type: unspecified Hyperparathyroidism E21.3 CKD (chronic kidney disease) stage 4, GFR 15-29 ml/min N18.4 Urge urinary incontinence N39.41 Skin cancer C44.90 Time Spent (min) 21 Assessment & Plan Assessment & Plan (1) Essential hypertension: Code(s): I10 - Essential (primary) hypertension Category: Medical (2) Paroxysmal atrial fibrillation: Onset Date: ~01/2021 Code(s): I48.0 - Paroxysmal atrial fibrillation Category: Medical (3) Dyslipidemia: Code(s): E78.5 - Hyperlipidemia, unspecified Category: Medical (4) Hypothyroidism: Code(s): E03.9 - Hypothyroidism, unspecified Category: Medical Qualifiers: Hypothyroidism type: unspecified Qualified Code(s): E03.9 - Hypothyroidism, unspecified (5) Hyperparathyroidism: Code(s): E21.3 - Hyperparathyroidism, unspecified Category: Medical (6) CKD (chronic kidney disease) stage 4, GFR 15-29 ml/min: Code(s): N18.4 - Chronic kidney disease, stage 4 (severe) Category: Medical (7) Urge urinary incontinence: Code(s): N39.41 - Urge incontinence Category: Medical (8) Skin cancer: Code(s): C44.90 - Unspecified malignant neoplasm of skin, unspecified Category: Medical Plan Plan Patient was informed and verbally consented to the use of an ambient scribe for clinic note documentation during this visit. 1. Unspecified hemorrhoids K64.9 The patient reports persistent hemorrhoids not responding to xibh-abd-gmrkxko treatments. Surgical intervention may be considered if symptoms persist. 2. Unspecified malignant neoplasm of skin of unspecified ear and external auricular canal C44.201 The patient has a history of skin cancer on the ear requiring reconstruction. Referral to plastic surgery for further evaluation and potential intervention has been made. 3. Chronic kidney disease, unspecified N18.9 Chronic kidney disease is noted with a GFR of 26, last checked in March. The parathyroid hormone was elevated, attributed to renal issues. Laboratory tests are scheduled for September to monitor kidney function and related parameters. 4. Essential (primary) hypertension I10 Continue Losartan. Recheck BP with nurse navigator in 3 weeks. BP goal is equal or less than 130/80. 5. Hypothyroidism, unspecified E03.9 Continue levothyroxine. Monitor TSH. 6. Hyperlipidemia, unspecified E78.5 Continue statin. 7. Unspecified atrial fibrillation I48.91 HCC 96 Continue Diltiazem. Orders: Orders Vitamin D 25-OH Total Today E55.9 - Vitamin D deficiency, unspecified Complete Blood Count Auto Diff Today D64.9 - Anemia, unspecified IRON PROFILE Today D64.9 - Anemia, unspecified Lipid Panel Today E78.5 - Hyperlipidemia, unspecified Comprehensive [place]. Panel Fast Today I10 - Essential (primary) hypertension Thyroid Stimulating Hormone Today E04.1 - Nontoxic single thyroid nodule Medications: New [adult diapers pull-ups] As directed 90 ea 11RF N39.41 - Urge incontinence Refilled hydrocortisone 1% (Anti-Itch (hydrocortisone)) 1 appl topical BID PRN 28.4 grams 0RF skin irritation 2 weeks Discontinued incontinence pad, liner, disp Discontinued Reason: Patient Completed Course Use 1 pad twice a day 60 ea 11RF N39.41 - Urge incontinence fenofibrate Discontinued Reason: Patient Completed Course 54 mg PO BEDTIME 90 days 90 tabs 0RF
--- OUTSIDE RECORDS SUMMARY | 2025-07-15 09:05 | XMS_ITS | Encounter Summary ---
Author Organization [employer] Address [address] [place] [address] Care Team Providers Care Heel Brusher Name Role Phone Angelique Valentine MD Primary Care Provider [phone] Reason for Visit * Reason Onset Date Comments SURGERY CANCELLED 06/28/2025 Encounter Details Date Type Department Care Team (Late st Contact Info) Description 06/28/2025 Telephone Plastic & Reconstructive Surgery - [place] [address] [place] [address] Luis Alberto Marinelli, DO [address] [place] [address] Social History Tobacco Use Types Packs/Day Years [...] as of this encounter Progress Notes * Kim Taylor MA - 07/10/2025 11:47 AM EDT Sona from [facility] called in stating the patient was seen this past weekend in the [place] Emergency room for complaint of ear pain. She states the ear was swollen and itchy. Patient advised [facility] that herupcoming surgery was cancelled as the provider was out. [facility] calling to confirm as patient was inquiring when she can reschedule. Relayed to Sona that Yves is out on a medical leave until the end ofthe year. If the patient is having concerns with the area, she can be seen in our office by one of the PA's, we just wont be able to do a complete procedure to remove it. Also stated to Sona, the patient can contact [facility] Dermatology to have her referral sent elsewhere to be seen by another provider. Sona understood and stated she will contact the patient to clarify. I will work to see if I can get the Emergency room records from [facility] to review in the meantime. * Renetta Bradley - 06/28/2025 1:39 PM EDT Patient called [...] on filedocumented in this encounter Care Teams Heel Brusher Relationship Specialty Start Date End Date Angelique Valentine MD [address] [place] [address] , [facility] [address] [facility] Physician Associ D/B/A: [facility] SEBASTIÁN Durbin PCP - General Internal Medicine 08/23/17 documented as of this encounter
--- OUTSIDE RECORDS SUMMARY | 2025-07-15 09:05 | XMS_ITS | Encounter Summary ---
Author Organization [employer] Address [address] [facility] [address] [place] [address] Care Team Providers Care Journeyman Powerhouse Operator Name Role Phone Unavailable Primary Care Provider Unavailabl e Encounter Details Date Type Department Care Team (Late st Contact Info) Description 09/03/2022 Abstract [facility]ULT [facility] [address] [place] [address] Dental, Provider, DDS Social History Tobacco Use [...] Description 09/09/2025 10:30 AM EST Office Visit [facility] OPTOMET[facility] [address] [place] [address] Nirali Luciano, OD [address] [place] [address] documented as of this encounter Procedures Procedure Name Priority Date/Time Associated Diagnosis Comments 25 MIFL COMPOSITE FILLING Routine 09/03/2022 12:00 AM EST documented in this encounter Visit Diagnoses Not on filedocumented in this encounter
--- OUTSIDE RECORDS SUMMARY | 2025-07-15 09:05 | XMS_ITS | Clinical Summary ---
Author Organization [facility] Address 10 [facility] 3 [address] [place] [address] Phone Care Team Providers Care Irrigationist Name Role Phone Angelique Li MD Primary Care Provider [phone] Allergies Active Allergy Reactions Criticality Noted Date [...] to complete this topic Insurance [facility] Dual SNP ([id number]) FORMERLY [facility] One Care Dual SNP ([id number]) Care Teams Irrigationist Relationship Specialty Start Date End Date Angelique Li MD 2 [facility] [address] [place] [address] PCP - General Internal Medicine 04/07/22
--- OUTSIDE RECORDS SUMMARY | 2025-07-15 09:05 | XMS_ITS | Encounter Summary ---
Author Organization [employer] Address 75 [facility] 7t [place] [address] Care Team Providers Care Welt Rander Name Role Phone Unavailable Primary Care Provider Unavailabl e Reason for Visit * Reason Onset Date Comments mail appt slip with address of offfice Encounter Details Date Type Department Care Team (Late Contact Info) Description 11/09/2024 Telephone [facility] CHC ADULT DENTAL [address] [place], [place] [phone] Frank Aldridge mail appt slip with address [...] Description 09/09/2025 10:30 AM EST Office Visit [facility] OPTOMETRY [address] [place], [place] [id number] Mustapha, Nirali, OD [address] [place] [address] documented as of this encounter Visit Diagnoses Not on filedocumented in this encounter
--- OUTSIDE RECORDS SUMMARY | 2025-07-15 09:05 | XMS_ITS | Clinical Summary ---
Author Organization [address] [place] [address] Address [address] [place] [address] Phone Care Team Providers Care Date Pitter Name Role Phone Angelique Valentine MD Primary Care Provider [phone] Allergies Active Allergy Reactions Criticality Noted Date [...] Description 06/28/2025 Telephone Plastic & Reconstructive Surgery [facility] [address] [facility] [address] [place] [address] Luis Alberto Marinelli, 06/17/2025 Telephone General Surgery [address] [place] [address] Luis Alberto Marinelli, 06/14/2025 Telephone General Surgery - [place] 175 [facility] [address] [place] [address] Luis Alberto Marinelli, DO 06/12/2025 Telephone Plastic & Reconstructive Surgery [facility] 300 [facility] [address] [place] [phone] Luis Alberto Marinelli, 04/15/2025 10:00 AM EDT Consult Plastic & Reconstructive Surgery [facility] 300 [facility] 256 [place] [address] Sidra Canales PA 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); Basal cell carcinoma of left hand; Current use of group home anticoagulation from Last 3 Months Surgical History [...] ID:[id number] Group ID:[id number] Type:Not on file Address: [place] [address] [place] [id number] Care Teams Date Pitter Relationship Specialty Start Date End Date Angelique Valentine MD [address] [place] [address] , [address] [facility] D/B/A: [facility] [place], [place] PCP - General Internal Medicine 08/23/17
--- OUTSIDE RECORDS SUMMARY | 2025-07-15 09:05 | XMS_ITS | Clinical Summary ---
Author Organization [employer] Address 75 [facility] 7t [place] [address] Care Team Providers Care Wait Staff Name Role Phone Unavailable Primary Care Provider [...] Description 09/09/2025 10:30 AM EST Office Visit [facility] OPTOMETRY [address] [place] [address] Mustapha, Nirali, OD [address] [place] [address] Health Maintenance Due Date Last Done Comments [...] Relevant to Health Maintenance Insurance [facility] HALF-WAY OPTIONS (HMO D-SNP) [place] [address] [place] [address]
== END 2025-07-15 09:50 | disposition home or self-care (01) ==
LOC: HO.HMCH 09:02
PROVIDERS: PCP Internal Medicine; Visit Provider Internal Medicine
DX: I12.9 Hypertensive chronic kidney disease with stage 1 through stage 4 chronic kidney disease, or unspecified chronic kidney disease (principal); I48.0 Paroxysmal atrial fibrillation; E78.5 Hyperlipidemia, unspecified; E03.9 Hypothyroidism, unspecified; E21.3 Hyperparathyroidism, unspecified; N18.4 Chronic kidney disease, stage 4 (severe); N39.41 Urge incontinence; C44.90 Unspecified malignant neoplasm of skin, unspecified

== ENCOUNTER → 2025-07-15 09:01 | Outpatient (BNVA) | payer OTHER, SELFPAY | PROVIDERS: PCP Internal Medicine; Visit Provider Internal Medicine | DX: I12.9 Hypertensive chronic kidney disease with stage 1 through stage 4 chronic kidney disease, or unspecified chronic kidney disease (principal); N18.4 Chronic kidney disease, stage 4 (severe); I48.0 Paroxysmal atrial fibrillation; E78.5 Hyperlipidemia, unspecified; E03.9 Hypothyroidism, unspecified; E21.3 Hyperparathyroidism, unspecified; N39.41 Urge incontinence; C44.201 Unspecified malignant neoplasm of skin of unspecified ear and external auricular canal | CPT/HCPCS: 99212 ==

== ENCOUNTER 2025-07-30 08:55 | Outpatient (REF) | payer OTHER, SELFPAY ==
[2025-07-30 09:25] LABS: Appearance Urine Clear; Glucose Urine UA Negative (Negative); PH 5.5 (5.0-9.0); Specific Gravity - Urine 1.015 (1.005-1.025); UMIC TRIGGER UA YES
--- OUTSIDE RECORDS SUMMARY | 2025-07-30 09:47 | XMS_ITS | Clinical Summary ---
Author Organization [address] [place] [address] Address [address] [place] [address] Phone Care Team Providers Care Sock Mender Name Role Phone Angelique Valentine MD Primary Care Provider [phone] Allergies Active Allergy Reactions Criticality Noted Date [...] Description 06/28/2025 Telephone Plastic & Reconstructive Surgery [facility] [address] [facility] 256 [place] [address] Luis Alberto Marinelli, 06/17/2025 Telephone General Surgery [address] [place] [address] Luis Alberto Marinelli, 06/14/2025 Telephone General Surgery [address] [place] [address] Luis Alberto Marinelli DO 06/12/2025 Telephone Plastic & Reconstructive Surgery [facility] [address] [place] [address] Luis Alberto Marinelli DO from Last 3 Months Surgical History Surgery [...] patient's age to complete this topic Insurance [facility] MEDICARE Member Subscriber Plan / Payer (Ef fective 2016-Present) Name:Sona Pinon Relation to Subscriber:Self Name:Sona Pinon Payer ID:[id number] Group ID:[id number] Type:Not on file Address: [place] [address] [address] [phone] Care Teams Sock Mender Relationship Specialty Start Date End Date Angelique Valentine MD [address] [place] [address] , [address] [facility] Physician Associ D/B/A: [facility] [place] PCP - General Internal Medicine 08/23/17
--- OUTSIDE RECORDS SUMMARY | 2025-07-30 09:47 | XMS_ITS | Clinical Summary ---
Author Organization [employer] Address 75 [facility] 7t [place] [address] Care Team Providers Care Tank House Supervisor Name Role Phone Unavailable Primary Care [...] Description 09/09/2025 10:30 AM EST Office Visit [facility] OPTOMETRY [address] [place] [address] Mutsapha, Nirali, OD [address] [place] [address] Health Maintenance Due Date Last Done Comments [...] Most Recently Relevant to Health Maintenance Insurance [facility] C[facility] HOME OPTIONS (HMO D-SNP) [place] [address]
--- OUTSIDE RECORDS SUMMARY | 2025-07-30 09:47 | XMS_ITS | Encounter Summary ---
Author Organization [employer] Address 75 [facility] 7t [place] [address] Care Team Providers Care Spreader Operator Automatic Name Role Phone Unavailable Primary Care Provider Unavailabl e Reason for Visit * Reason Onset Date Comments mail appt slip with address of offfice Encounter Details Date Type Department Care Team (Late Contact Info) Description 11/09/2024 Telephone [facility] CHC ADULT DENTAL [address] [place], [place] [phone] Frank Aldridge mail appt slip with address [...] Description 09/09/2025 10:30 AM EST Office Visit [facility] OPTOMETRY [address] [place], [place] [phone] Mustapha, Nirali, OD [address] [place] [address] documented as of this encounter Visit Diagnoses Not on filedocumented in this encounter
--- OUTSIDE RECORDS SUMMARY | 2025-07-30 09:47 | XMS_ITS | Clinical Summary ---
Author Organization [facility] Address 10 [facility] 3 [address] [place] [address] Phone Care Team Providers Care Streaming Media Specialist Name Role Phone Angelique Li MD Primary Care Provider [phone] Allergies Active Allergy Reactions Criticality Noted Date [...] patient's age to complete this topic Insurance [facility] Dual SNP ([id number]) [facility] One Care Dual SNP ([id number]) Care Teams Streaming Media Specialist Relationship Specialty Start Date End Date Angelique Li MD 2 [facility] [address] [place] [address] PCP - General Internal Medicine 04/07/22
--- OUTSIDE RECORDS SUMMARY | 2025-07-30 09:47 | XMS_ITS | Encounter Summary ---
Author Organization [employer] Address 75 [facility] 7t [place] [address] Care Team Providers Care Dam Tender Name Role Phone Unavailable Primary Care Provider Unavailabl e Encounter Details Date Type Department Care Team (Late st Contact Info) Description 09/03/2022 Abstract [facility] ADULT DENTAL [address] [place] [address] Dental, Provider, DDS Social History Tobacco Use [...] Description 09/09/2025 10:30 AM EST Office Visit [facility] OPTOMETRY [address] [place] [address] Nirali Luciano, OD [address] [place] [address] documented as of this encounter Procedures Procedure Name Priority Date/Time Associated Diagnosis Comments 25 MIFL COMPOSITE FILLING Routine 09/03/2022 12:00 AM EST documented in this encounter Visit Diagnoses Not on filedocumented in this encounter
[2025-07-30 10:00] LABS: Anion Gap 13 (12-20); Blood Urea Nitrogen 31 mg/dL (9-16); Calcium 9.1 mg/dL (8.4-10.2); Carbon Dioxide 27 mmol/L (22-29); Chloride 109 mmol/L (96-108); Estimated Glomerular Filt Rate 26; Potassium 4.5 mmol/L (3.3-5.1); Sodium 144 mmol/L (135-145)
[2025-07-30 10:07] LABS: Parathyroid Hormone Intact 166.0 pg/mL (8.7-77.1)
== END 2025-07-30 08:56 | disposition home or self-care (01) ==
LOC: HO.LAB 08:55
PROVIDERS: PCP Internal Medicine; Visit Provider Internal Medicine Hypertension Specialist
DX: Z01.810 Encounter for preprocedural cardiovascular examination (principal); I12.9 Hypertensive chronic kidney disease with stage 1 through stage 4 chronic kidney disease, or unspecified chronic kidney disease; N18.4 Chronic kidney disease, stage 4 (severe); I48.0 Paroxysmal atrial fibrillation; Z79.01 Long term (current) use of anticoagulants; Z87.891 Personal history of nicotine dependence; Z79.899 Other long term (current) drug therapy
CPT/HCPCS: 36415; 80048; 81001; 83970; 93005; 99212

== ENCOUNTER 2025-07-30 09:16 | Outpatient (AMB) | payer OTHER, SELFPAY ==
--- NOTE | 2025-07-30 10:05 | MHC.OFFVIS ---
Vital Signs 07/30/25 10:08 Height 5 ft 4 in Weight 183 lb 6.793 oz BMI 31.5 BP 142/64 H Blood Pressure Location Lt brachial Position Sitting Pulse 73 Pulse Source Monitor Intake Visit Reasons: 3 mth ekg/ +clearance for colonoscopy Organisational Psychologist Required: Yes Organisational Psychologist Language: [employer] Artistic Director Name: justino restrepo [phone] Allergies sulfamethoxazole (From Bactrim) Allergy (Severe, Verified 07/30/25 10:14) Rash trimethoprim (From Bactrim) Allergy (Severe, Verified 07/30/25 10:14) Rash levofloxacin (From LEVAQUIN) Allergy (Intermediate, Verified 07/30/25 10:14) RASH SOB, DIZZYNESS tramadol Adverse Reaction (Severe, Verified 07/30/25 10:14) abdominal pain, vomiting atorvastatin (Lipitor) Adverse Reaction (Intermediate, Verified 07/30/25 10:14) nausea codeine (CODEINE) Adverse Reaction (Intermediate, Verified 07/30/25 10:14) NAUSEA & VOMITING morphine (MORPHINE) Adverse Reaction (Intermediate, Verified 07/30/25 10:14) NAUSEA & VOMITING pravastatin Adverse Reaction (Intermediate, Verified 07/30/25 10:14) myalgia rosuvastatin Adverse Reaction (Mild, Verified 07/30/25 10:14) myalgia Medication List - Last Reconciled 07/30/25 by ROBERT Isbell acetaminophen ER 650 mg PO Q8H PRN 30 days [adona pillow seat and cushion As directed] [adult diapers pull-ups As directed] [air conditioner As directed] albuterol sulfate 90 mcg/actuation (Ventolin HFA) 2 puffs PO Q6H PRN albuterol sulfate 2.5 mg (3 mL) inhalation Q6H PRN 30 days apixaban (Eliquis) 5 mg PO BID aripiprazole 5 mg PO DAILY betamethasone dipropionate 0.05% 1 appl topical DAILY PRN 2 weeks cholecalciferol (vitamin D3) 25 mcg PO DAILY 90 days diclofenac sodium 1% (Arthritis Pain (diclofenac)) 2 grams topical QID PRN diltiazem HCl CD 120 mg PO DAILY diphenhydramine HCl (Banophen) 25 mg PO BEDTIME PRN escitalopram oxalate 10 mg PO DAILY fluocinolone acetonide oil 0.01% (DermOtic Oil) 5 drps otic (ear) left BID 7 days [hand held shower head As directed] hydrocortisone 1% (Anti-Itch (hydrocortisone)) 1 appl topical BID PRN 2 weeks ipratropium-albuterol 0.5 mg-3 mg(2.5 mg base)/3 mL 3 mL inhalation QID PRN latex gloves Use 1 pair of gloves twice a day levothyroxine 25 mcg PO DAILY 90 days [lift recliner As directed] loratadine 10 mg PO DAILY 90 days losartan 25 mg PO DAILY 90 days mepolizumab (Nucala) 100 mg subcut Q4W nebulizers As directed [non disposable bed pads As directed] prednisone 5 mg PO DAILY [quilted wipes As directed] [recliner As directed] rosuvastatin 20 mg PO DAILY 90 days sennosides (Natural Senna Laxative) 17.2 mg (2 x 8.6 mg) PO BEDTIME tamsulosin (Flomax) 0.4 mg PO DAILY 14 days triamcinolone acetonide 0.5% 1 appl topical BID umeclidinium 62.5 mcg/actuation (Incruse Ellipta) 1 inh inhalation DAILY 90 days underpads (Bed Underpads) As directed HPI HPI 3 mth ekg/ +clearance for colonoscopy: Details: Sona is a 74-year-old female with past medical history of obesity, hypertension, chronic kidney disease, prior DVT, asthma, paroxysmal atrial fibrillation that is treated with rhythm control who presents for follow-up and preop clearance for colonoscopy. Today she reports she has been doing well with no concerning symptoms. She has not had any recent heart palpitations. She has no chest discomfort, shortness of breath, lightheadedness, leg edema. She reports being active throughout the day. She takes all her meds as directed. No bleeding issues reported. She has no date yet for her colonoscopy. [facility] Medical History Asthma Skin cancer CKD (chronic kidney disease) stage 3, GFR 30-59 ml/min Chronic deep vein thrombosis (DVT) Right femoral vein DVT Osteoarthritis of knees, bilateral Mild recurrent major depression Polyarthralgia Osteopenia (~2007) Tubular adenoma of colon (~2009) Breast pain, left Postmenopausal Asthma-COPD overlap syndrome GERD (gastroesophageal reflux disease) HTN (hypertension) Paroxysmal atrial fibrillation (~01/2021) Dyslipidemia Hypothyroidism Pneumonia Eosinophilia Steroid dependent Chronic allergic rhinitis Surgical History History of right breast biopsy (~1998) History of colonoscopy History of D&C (~2002) History of tubal ligation History of shoulder surgery (~2006) History of nasal polypectomy (~2007) History of knee surgery Family History Father Medical history unknown Mother Alzheimer disease Daughter Lupus Other Arthritis Social History Household Members: None Housing: House Are you a primary patient care assistant to a significant other at home: No Do you presently have visiting nurse or other home services: Yes Alcohol intake: never Patient Tobacco Use Status: Former Tobacco user Tobacco use type: Cigarette e-Cigarette/Vaping Use: Never Used Second Hand Smoke Exposure: No Advance Directives Date on File: 11/10/20 service: No Current occupational status: disabled Cognitive needs: Yes (cane) Hearing needs: No Vision needs: Yes (glasses) Review of Systems Const All systems reviewed & are unremarkable except as noted in HPI and below ENT Reports no additional complaints and Denies dizziness Card Denies chest pain, Denies chest pain at rest, Denies chest pain with activity, Denies rapid heart rate, Denies pedal edema, Denies edema, Denies leg edema, Denies lightheadedness, Denies palpitations, Denies dyspnea, Denies dyspnea on exertion and Denies orthopnea Resp Denies cough, Denies dyspnea and Denies dyspnea on exertion GI Denies hematochezia and Denies change in stool character Musc Denies abnormal gait, Denies limited range of motion, Denies muscle cramps, Denies muscle weakness, Denies numbness, Denies radiating pain into limb, Denies stiffness and Denies tingling Neuro Denies abnormal gait, Denies dizziness, Denies numbness and Denies tingling Endo Denies palpitations Physical Exam Vital Signs: Last Vital Signs Pulse 73 07/30/25 10:08 BP 142/64 H 07/30/25 10:08 BMI result Body Mass Index 31.5 Const General: cooperative, healthy appearing, comfortable and no acute distress Orientation/consciousness: patient oriented x3 Neck Neck: Yes normal visual inspection and Yes no JVD Resp Effort & Inspection: normal respiratory effort Auscultation: clear to auscultation bilaterally, no crackles, no rales, no rhonchi and no wheezes Cardio Rate: regular rate Rhythm: regular rhythm Heart sounds: S1 normal heart sound present, S2 normal heart sound present, no gallops, no murmurs and no rubs Neuro General: patient oriented x3 Extrem General: Yes normal to inspection Psych Appearance: grossly normal Mental Status: mental status grossly normal Speech and movement: Normal speech and movement present Office Procedures EKG Details: Today, read by me, normal sinus rhythm with voltage criteria for LVH, rate 73, Qtc 414ms [id number], Complete Assessment & Plan Assessment & Plan (1) Paroxysmal atrial fibrillation: Onset Date: ~01/2021 Code(s): I48.0 - Paroxysmal atrial fibrillation Category: Medical Plan: History of symptomatic paroxysmal atrial fibrillation that is treated with rhythm control using Multaq. She is on diltiazem for heart rate control and Eliquis for anticoagulation. CHADS-VASc score of 6 with age, hypertension, DVT and female. Last echocardiogram 08/24/2024 showed EF 60-65%, calcific aortic and mitral valve changes with normal valve Dopplers. EKG done today showing normal sinus rhythm, rate 73, QTC 414 milliseconds. No med changes made. Office EKG in 3 months. Cardiology follow-up 6 months with EKG, sooner if needed. (2) Essential hypertension: Code(s): I10 - Essential (primary) hypertension Category: Medical Plan: Blood pressure goal less than 130/80. Mildly elevated today. She reports taking her meds just prior to this visit. She has known CKD with labs done 07/30/2025 showed creatinine 1.89. She is on losartan and diltiazem. She has an upcoming visit with Nephrology pressure will be rechecked at that time. Reviewed low-salt diet with her. (3) Preop cardiovascular exam: Code(s): Z01.810 - Encounter for preprocedural cardiovascular examination Category: Medical Plan: Preop for colonoscopy, no date yet. She can proceed with low cardiac risk. She has no known CAD. Nuclear stress test 03/25/2021 showed normal myocardial perfusion. Last echo showing normal EF and wall motion. She has known PAF which is currently suppressed with Multaq. High CHADS-VASc score. Eliquis can be held 48 hours prior to her colonoscopy. Recommend 1 dose of Lovenox the morning of the day before the procedure (1 milligram/kilogram). Resume anticoagulation as soon as cleared by GI to do so. This was reviewed with her. Plan Time spent on chart review, documentation, interview and assessment Coding Level of Care Code Est Pt Level 4 (95674) Complex EM visit Add On G2211 Diagnoses Paroxysmal atrial fibrillation I48.0 Essential hypertension I10 Preop cardiovascular exam Z01.810 CPT Codes EKG - CPT: [id number], Complete ([id number]) Time Spent (min) 28
[2025-07-30 10:08] VITALS: BP 142/64; PULSE 73; BMI 31.5
== END 2025-07-30 10:53 | disposition home or self-care (01) ==
LOC: HO.HCS 09:17
PROVIDERS: PCP Internal Medicine; Visit Provider Nurse Practitioner Family
DX: I48.0 Paroxysmal atrial fibrillation (principal); I10 Essential (primary) hypertension; Z01.810 Encounter for preprocedural cardiovascular examination
CPT/HCPCS: 93010; 99214; G2211

== ENCOUNTER 2025-08-07 09:13 | Outpatient (AMB) | payer OTHER, SELFPAY ==
--- OUTSIDE RECORDS SUMMARY | 2025-08-07 10:00 | XMS_ITS | Clinical Summary ---
Author Organization [employer] Address [address] [facility] [address] [place] [address] Care Team Providers Care Log Clerk Name Role Phone Unavailable Primary Care [...] 10:30 AM EST Office Visit [facility] [address] [place] [address] Mustapha, Nirali, OD [address] [place] [address] Health Maintenance Due Date Last Done Comments [...] Relevant to Health Maintenance Insurance [facility] LONG-TERM OPTIONS (HMO D-SNP) [place] [address]
--- OUTSIDE RECORDS SUMMARY | 2025-08-07 10:00 | XMS_ITS | Clinical Summary ---
Author Organization [address] [place] [address] Address [address] [place] [address] Phone Care Team Providers Care Impregnator Helper Name Role Phone Angelique Valentine MD Primary Care Provider [phone] Allergies Active Allergy Reactions Criticality Noted Date [...] Description 06/28/2025 Telephone Plastic & Reconstructive Surgery [facility] [address] [facility] [address] [place] [address] Luis Alberto Marinelli, 06/17/2025 Telephone General Surgery [address] [place] [address] Luis Alberto Marinelli, 06/14/2025 Telephone General Surgery [address] [place] [address] Luis Alberto Marinelli DO 06/12/2025 Telephone Plastic & Reconstructive Surgery [facility] [address] [place] [address] Luis Alberto Marinelli DO from [...] patient's age to complete this topic Insurance [facility] MEDICARE Member Subscriber Plan / Payer (Ef fective 2016-Present) Name:Sona Pinon Relation to Subscriber:Self Name:Sona Pinon Payer ID:[id number] Group ID:[id number] Type:Not on file Address: [place] [address] [address] Care Teams Impregnator Helper Relationship Specialty Start Date End Date Angelique Valentine MD [address] [place] [address] , [address] [facility] D/B/A: [facility] SEBASTIÁN Durbin PCP - General Internal Medicine 08/23/17
--- OUTSIDE RECORDS SUMMARY | 2025-08-07 10:00 | XMS_ITS | Encounter Summary ---
Author Organization [employer] Address [address] [facility] [address] [place] [address] Care Team Providers Care School Adjustment Counselor Name Role Phone Unavailable Primary Care Provider Unavailabl e Reason for Visit * Reason Onset Date Comments mail appt slip with address of offfice Encounter Details Date Type Department Care Team (Late Contact Info) Description 11/09/[address] [facility] [address] [place] [address] Frank Aldridge mail appt slip with address [...] Description 09/09/2025 10:30 AM EST Office Visit [facility] [address] [place], [place] [id number] Mustapha, Nirali, OD [address] [place] [address] documented as of this encounter Visit Diagnoses Not on filedocumented in this encounter
--- OUTSIDE RECORDS SUMMARY | 2025-08-07 10:00 | XMS_ITS | Encounter Summary ---
Author Organization [employer] Address [address] [facility] [address] [place] [address] Care Team Providers Care Indirect Sales Representative Name Role Phone Unavailable Primary Care Provider Unavailabl e Encounter Details Date Type Department Care Team (Late st Contact Info) Description 09/03/2022 Abstract [facility] D[facility]AL [address] [place] [address] Dental, Provider, DDS Social History Tobacco Use [...] Description 09/09/2025 10:30 AM EST Office Visit [facility] [address] [place] [address] Nirali Luciano, OD [address] [place] [address] documented as of this encounter Procedures Procedure Name Priority Date/Time Associated Diagnosis Comments 25 MIFL COMPOSITE FILLING Routine 09/03/2022 12:00 AM EST documented in this encounter Visit Diagnoses Not on filedocumented in this encounter
--- OUTSIDE RECORDS SUMMARY | 2025-08-07 10:00 | XMS_ITS | Clinical Summary ---
Author Organization [facility] Address [address] [facility] [address] [place] [address] Phone Care Team Providers Care Hardware Engineering Manager Name Role Phone Angelique Li MD Primary Care Provider [phone] Allergies Active Allergy Reactions Criticality Noted Date [...] to complete this topic Insurance [facility] Dual SNP ([id number]) [facility] One Care Dual SNP ([id number]) Care Teams Hardware Engineering Manager Relationship Specialty Start Date End Date Angelique Li MD [address] [facility] [address] [place] [address] PCP - General Internal Medicine 04/07/22
[2025-08-07 10:08] VITALS: BP 158/64; PULSE 64; O2SAT 99; BMI 31.2
--- NOTE | 2025-08-07 10:08 | A.OFFVIS_ITS ---
Vital Signs 08/07/25 10:08 Height 5 ft 4 in Weight 181 lb 14.102 oz BMI 31.2 BP 158/64 H Blood Pressure Location Lt brachial Position Sitting Pulse 64 Pulse Source Pulse Oximeter Pulse Oximetry (%) 99 Oxygen Delivery Method Room Air Intake Visit Reasons: Asthma Coal Hauler Required: Yes Coal Hauler Services: Coal Hauler Offered & Declined Coal Hauler Name: MD speaks thai Accompanied by: Self / Same As Patient Allergies sulfamethoxazole (From Bactrim) Allergy (Severe, Verified 08/07/25 10:11) Rash trimethoprim (From Bactrim) Allergy (Severe, Verified 08/07/25 10:11) Rash levofloxacin (From LEVAQUIN) Allergy (Intermediate, Verified 08/07/25 10:11) RASH SOB, DIZZYNESS tramadol Adverse Reaction (Severe, Verified 08/07/25 10:11) abdominal pain, vomiting atorvastatin (Lipitor) Adverse Reaction (Intermediate, Verified 08/07/25 10:11) nausea codeine (CODEINE) Adverse Reaction (Intermediate, Verified 08/07/25 10:11) NAUSEA & VOMITING morphine (MORPHINE) Adverse Reaction (Intermediate, Verified 08/07/25 10:11) NAUSEA & VOMITING pravastatin Adverse Reaction (Intermediate, Verified 08/07/25 10:11) myalgia rosuvastatin Adverse Reaction (Mild, Verified 08/07/25 10:11) myalgia HPI Comments Details: The patient is a 74-year-old woman with a known history of 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 She also has had chronic obstructive disease with chronic bronchitis requiring multiple hospitalizations and multiple prednisone tapers. Recently she was tapered off the prednisone and she has had worsening respiratory symptoms. Today she has significant wheezing. Also, she has questions about inhaler she does not feel like the working. Today she is found to have significant wheezing so therefore I will give her Solu-Medrol injection. She was approved for Nucala which I very happy about. She is going to call the infusion center and get that scheduled MIGUELINA in order to start therapy for significant eosinophilic asthma. 03/19/2024 the patient is here for a pulmonary follow-up visit. Her asthma has been very well controlled. She denies any recent exacerbations except back in September when she had RSV. The Nucala injections continue be affecting beneficial. She understands the Nucala is not going to help her for viral infections. Only for allergies. The patient has been on 5 mg of prednisone. When she is tried coming off it she gets very symptomatic with myalgias and fati peggy. Likely some component of secondary adrenal insufficiency. Although she is having significant epigastric discomfort with significant reflux disease. She has been on 20 mg of omeprazole. I will go ahead increase that. She will have an endoscopy soon. She may indeed have peptic ulcer disease secondary to her chronic prednisone use. We did talk about ways decreasing the prednisone. I do believe that she should continue to work down to the lowest most effective dose to see if we can minimize her adverse effects. She is going to have her evaluation and she is going to follow-up in the fall and will start working on decreasing her prednisone. 08/01/2024 the patient is here for pulmonary follow-up visit. The patient overall has been doing respiratory status. She continues to respond very well to Nucala. She continues on 5 mg of prednisone. She has not required any additional prednisone at this time. She did have an episode of vertigo recently. She is now better. She was also diagnosed with skin cancer. She needs to follow-up with the business excellence manager or surgeon. In addition to that she is still waiting for her EGD. She still continues to have issues with difficu lty swallowing. She continues use her respiratory therapy with good effect. No recent imaging studies reviewed. She does not get any vaccines. Will follow-up in 6-8 months. If she has any issues prior to that she will call for an earlier assessment. 02/04/2025 the patient is here for pulmonary follow-up visit. Overall she is doing well. She continues on the 5 mg prednisone. Continues to respond very well to the Nucala injections. She gets those on a monthly basis. She has not required any prednisone additionally. Although she continues to be on her chronic dose of prednisone 5 mg. She does have issues with her kidneys and also with GI symptoms. I did encourage her to decrease the prednisone to 2.5 mg daily. I am hopeful that she will do better with a smaller dose. If she does not tolerate the lower dose then we can again try going down but potentially a little slower. She is concerned about anesthesia. I did reassure her that from a respiratory status she is doing very well and should be able to tolerate anesthesia well. Therefore the patient may be able to proceed with anesthesia and GI endoscopies without any restrictions. 08/07/2025 the patient is here for pulmonary follow-up visit. Overall she is doing well from a pulmonary standpoint. She continues on the Nucala once a month and she has been tolerating that very well and isn't very affecting beneficial. But she had been on prednisone for a long time and therefore at this point she does have chronic dependent. Likely adrenal insufficiency. She did try to decrease it down to 2.5 mg but she did not do well on that. She rather stay on 5 mg. Therefore will just continue her on that at this time. Her major concern right now she is dealing with skin cancer of her left ear. She has not area that is very tender uncomfortable. She does have a business excellence manager and she is waiting to be scheduled for surgery. Otherwise the patient is without any other complaints. She is not interested in any vaccines at this time. She will follow-up in 6-8 months if she has any issues prior to this she can always call for an earlier assessment or recommendations. [facility] Medical History Asthma Skin cancer CKD (chronic kidney disease) stage 3, GFR 30-59 ml/min Chronic deep vein thrombosis (DVT) Right femoral vein DVT Osteoarthritis of knees, bilateral Mild recurrent major depression Polyarthralgia Osteopenia (~2007) Tubular adenoma of colon (~2009) Breast pain, left Postmenopausal Asthma-COPD overlap syndrome GERD (gastroesophageal reflux disease) HTN (hypertension) Paroxysmal atrial fibrillation (~01/2021) Dyslipidemia Hypothyroidism Pneumonia Eosinophilia Steroid dependent Chronic allergic rhinitis Surgical History History of right breast biopsy (~1998) History of colonoscopy History of D&C (~2002) History of tubal ligation History of shoulder surgery (~2006) History of nasal polypectomy (~2007) History of knee surgery Family History Father Medical history unknown Mother Alzheimer disease Daughter Lupus Other Arthritis Social History Household Members: None Housing: House Are you a primary toddler caregiver to a significant other at home: No Do you presently have visiting nurse or other home services: Yes Alcohol intake: never Patient Tobacco Use Status: Former Tobacco user Tobacco use type: Cigarette e-Cigarette/Vaping Use: Never Used Second Hand Smoke Exposure: No Advance Directives Date on File: 11/10/20 service: No Current occupational status: disabled Cognitive needs: Yes (cane) Hearing needs: No Vision needs: Yes (glasses) Review of Systems Const Denies chills, Denies fatigue, Denies fever(s), Denies weight gain and Denies weight loss Eyes Reports no additional complaints ENT Denies dizziness Card Denies chest pain, Denies leg edema, Denies lightheadedness, Denies palpitations, Denies dyspnea on exertion, Denies orthopnea and Denies other Resp Reports cough, Denies dyspnea on exertion and Denies wheezing GI Denies hematochezia and Denies change in stool character Reports no additional complaints Musc Denies abnormal gait, Denies muscle weakness, Denies numbness, Denies radiating pain into limb and Denies tingling Skin/Breast Reports lesions and Denies rash Neuro Denies abnormal gait, Denies dizziness, Denies numbness and Denies tingling Endo Denies fatigue and Denies palpitations Aller/Immun Denies wheezing Physical Exam Vital Signs: Last Vital Signs Pulse 64 08/07/25 10:08 BP 158/64 H 08/07/25 10:08 Pulse Ox 99 08/07/25 10:08 Oxygen Delivery Method Room Air 08/07/25 10:08 BMI result Body Mass Index 31.2 Const General: healthy appearing and comfortable Nutritional Appearance: obese Orientation/consciousness: oriented to person HEENT Head: Yes normocephalic Ears: external ear abnormal (left ear skin cancer) Neck Neck: Yes supple Chest Chest palpation & inspection: normal inspection of the chest Resp Effort & Inspection: normal respiratory effort Auscultation: clear to auscultation bilaterally Cardio Rate: regular rate Rhythm: regular rhythm Heart sounds: S1 normal heart sound present and S2 normal heart sound present GI Inspection: Yes normal to inspection Palpation (GI): nontender Skin General skin exam: no rashes or lesions noted Neuro General: oriented to person Extrem General: Yes no clubbing, cyanosis or edema Assessment & Plan Assessment & Plan (1) Asthma: Code(s): J45.909 - Unspecified asthma, uncomplicated Category: Medical Qualifiers: Asthma complication type: uncomplicated Asthma persistence: persistent Asthma severity: severe Qualified Code(s): J45.50 - Severe persistent asthma, uncomplicated (2) Steroid dependent: Code(s): F19.20 - Other psychoactive substance dependence, uncomplicated Category: Medical (3) Chronic allergic rhinitis: Code(s): J30.9 - Allergic rhinitis, unspecified Category: Medical (4) Paroxysmal atrial fibrillation: Onset Date: ~01/2021 Code(s): I48.0 - Paroxysmal atrial fibrillation Category: Medical (5) Epigastric pain: Code(s): R10.13 - Epigastric pain Category: Medical (6) Skin cancer: Code(s): C44.90 - Unspecified malignant neoplasm of skin, unspecified Category: Medical Plan Xopenex as needed continue Prednisone 5mg daily reflux diet Omeprazole Awaiting EGD mucinex DM Continue Nucala therapy monthly Claritin as needed Continue anticoagulation with Eliquis prednisone 5mg Follow-up in 6-8 months Coding Level of Care Code Est Pt Level 4 (77321) Complex EM visit Add On G2211 Diagnoses Severe persistent asthma without complication J45.50 Asthma complication type: uncomplicated Asthma persistence: persistent Asthma severity: severe Steroid dependent F19.20 Chronic allergic rhinitis J30.9 Paroxysmal atrial fibrillation I48.0 Epigastric pain R10.13 Skin cancer C44.90 Time Spent (min) 16
== END 2025-08-07 10:34 | disposition home or self-care (01) ==
LOC: HO.HPS 09:14
PROVIDERS: PCP Internal Medicine; Visit Provider Hospitalist
DX: J45.50 Severe persistent asthma, uncomplicated (principal); F19.20 Other psychoactive substance dependence, uncomplicated; J30.9 Allergic rhinitis, unspecified; I48.0 Paroxysmal atrial fibrillation; R10.13 Epigastric pain; C44.90 Unspecified malignant neoplasm of skin, unspecified
CPT/HCPCS: 99214; G2211

== ENCOUNTER → 2025-08-07 09:13 | Outpatient (BNVA) | payer OTHER, SELFPAY | PROVIDERS: PCP Internal Medicine; Visit Provider Hospitalist | DX: J45.50 Severe persistent asthma, uncomplicated (principal); F19.20 Other psychoactive substance dependence, uncomplicated; J30.9 Allergic rhinitis, unspecified; R10.13 Epigastric pain; I48.0 Paroxysmal atrial fibrillation; C44.90 Unspecified malignant neoplasm of skin, unspecified | CPT/HCPCS: 99212 ==

== ENCOUNTER 2025-08-20 08:55 | Outpatient (REF) | payer OTHER, SELFPAY ==
[2025-08-20 09:08] LABS: MANUAL DIFF FLAG NO
[2025-08-20 09:41] LABS: Hematocrit 38.4 % (37.0-47.0); Hemoglobin 11.4 g/dl (12.0-16.0); Imm Gran Abs Auto 0.02 X10*3/uL (0.00-0.03); Imm Gran Pct Auto 0.3 % (0.0-0.4); Lymphocytes Absolute Auto 2.6 X10*3/uL (1.2-4.9); Mean Corpuscular HGB Conc 29.7 g/dl (31.0-35.0); Mean Corpuscular Hemoglobin 26.0 pg (27.0-33.0); Mean Corpuscular Volume 87.7 fL (80.0-98.0); NRBC Abs Auto 0.000 X10*3/uL (0.0-0.012); NRBC Pct Auto 0.0 /100WBC (0.0-0.2); Platelet Count 332 X10*3/uL (160-400); Red Blood Count 4.38 X10*6/uL (4.20-5.50); White Blood Count 7.5 X10*3/uL (4.8-10.8)
[2025-08-20 10:22] LABS: Alanine Aminotransferase 14 U/L (0-31); Albumin Level 4.5 g/dL (3.5-5.0); Alkaline Phosphatase 62 U/L (39-117); Anion Gap 15 (12-20); Aspartate Amino Transferase 22 U/L (5-31); Blood Urea Nitrogen 32 mg/dL (9-16); Calcium 9.2 mg/dL (8.4-10.2); Carbon Dioxide 26 mmol/L (22-29); Chloride 107 mmol/L (96-108); Cholesterol 189 mg/dL (<200); Estimated Glomerular Filt Rate 23; HDL Cholesterol 76 mg/dL (>40); Iron 58 mcg/dL (30-160); Percent Iron Saturation 21 % (15-50); Potassium 4.5 mmol/L (3.3-5.1); Sodium 143 mmol/L (135-145); Total Iron Binding Capacity 278 mcg/dL (228-428); Total Protein 7.3 g/dL (6.5-8.0); Triglycerides 117 mg/dL (<150); Unsaturated Iron Binding 220 ug/dL
[2025-08-20 10:41] LABS: Thyroid Stimulating Hormone 4.72 uIU/mL (0.32-4.0)
== END 2025-08-20 08:56 | disposition home or self-care (01) ==
LOC: HO.LAB 08:55
PROVIDERS: PCP Internal Medicine; Visit Provider Internal Medicine
DX: I10 Essential (primary) hypertension (principal); D64.9 Anemia, unspecified; E55.9 Vitamin D deficiency, unspecified; E78.5 Hyperlipidemia, unspecified; E04.1 Nontoxic single thyroid nodule
CPT/HCPCS: 36415; 80053; 80061; 82306; 83540; 84443; 85025

== ENCOUNTER 2025-09-05 09:22 | Outpatient (AMB) | payer OTHER, SELFPAY ==
--- NOTE | 2025-09-05 09:35 | HO.NEPHOV_ITS ---
Vital Signs 09/05/25 09:36 Height 5 ft 4 in Weight 183 lb BMI 31.4 BP 180/74 H Blood Pressure Location Rt brachial Position Sitting Pulse 80 Pulse Source Pulse Oximeter Pulse Oximetry (%) 97 Oxygen Delivery Method Room Air Intake Visit Reasons: Rscng missed 08/12 appt Artist Color Separation Required: No Accompanied by: Self / Same As Patient Allergies sulfamethoxazole (From Bactrim) Allergy (Severe, Verified 09/05/25 09:38) Rash trimethoprim (From Bactrim) Allergy (Severe, Verified 09/05/25 09:38) Rash levofloxacin (From LEVAQUIN) Allergy (Intermediate, Verified 09/05/25 09:38) RASH SOB, DIZZYNESS tramadol Adverse Reaction (Severe, Verified 09/05/25 09:38) abdominal pain, vomiting atorvastatin (Lipitor) Adverse Reaction (Intermediate, Verified 09/05/25 09:38) nausea codeine (CODEINE) Adverse Reaction (Intermediate, Verified 09/05/25 09:38) NAUSEA & VOMITING morphine (MORPHINE) Adverse Reaction (Intermediate, Verified 09/05/25 09:38) NAUSEA & VOMITING pravastatin Adverse Reaction (Intermediate, Verified 09/05/25 09:38) myalgia rosuvastatin Adverse Reaction (Mild, Verified 09/05/25 09:38) myalgia Medication List - Last Reconciled 09/05/25 by Dillan Miller MD acetaminophen ER 650 mg PO Q8H PRN 30 days [adona pillow seat and cushion As directed] [adult diapers pull-ups As directed] [air conditioner As directed] albuterol sulfate 2.5 mg (3 mL) inhalation Q6H PRN 30 days albuterol sulfate 90 mcg/actuation (Ventolin HFA) 2 puffs PO Q6H PRN apixaban (Eliquis) 5 mg PO BID aripiprazole 5 mg PO DAILY betamethasone dipropionate 0.05% 1 appl topical DAILY PRN 2 weeks cholecalciferol (vitamin D3) 25 mcg PO DAILY 90 days diclofenac sodium 1% (Arthritis Pain (diclofenac)) 2 grams topical QID PRN diltiazem HCl CD 120 mg PO DAILY diphenhydramine HCl (Banophen) 25 mg PO BEDTIME PRN escitalopram oxalate 10 mg PO DAILY fluocinolone acetonide oil 0.01% (DermOtic Oil) 5 drps otic (ear) left BID 7 days [hand held shower head As directed] hydrocortisone 1% (Anti-Itch (hydrocortisone)) 1 appl topical BID PRN 2 weeks ipratropium-albuterol 0.5 mg-3 mg(2.5 mg base)/3 mL 3 mL inhalation QID PRN latex gloves Use 1 pair of gloves twice a day levothyroxine 25 mcg PO DAILY 90 days levothyroxine (Synthroid) 50 mcg PO DAILY 90 days [lift recliner As directed] loratadine 10 mg PO DAILY 90 days losartan 25 mg PO DAILY 90 days mepolizumab (Nucala) 100 mg subcut Q4W nebulizers As directed [non disposable bed pads As directed] prednisone 5 mg PO DAILY [quilted wipes As directed] [recliner As directed] rosuvastatin 20 mg PO DAILY 90 days sennosides (Natural Senna Laxative) 17.2 mg (2 x 8.6 mg) PO BEDTIME tamsulosin (Flomax) 0.4 mg PO DAILY 14 days triamcinolone acetonide 0.5% 1 appl topical BID umeclidinium 62.5 mcg/actuation (Incruse Ellipta) 1 inh inhalation DAILY 90 days underpads (Bed Underpads) As directed HPI Comments Details: 71 yo woman with history of Afib on Eliquis, DVTs, CKD, HTN, severe asthma/COPD on chronic prednisone and monthly infusions of Nucala , GERD, hypothyroidism, HLD She is here today for follow-up regarding CKD and hypertension. She seems compliant with her medications. Artist Color Separation service was used today. No specific complaints today. No headache nausea vomiting. No shortness of breath. No urinary symptoms. 12/11/24 Last week in ER fo diarrhea- resolved 03/25/25 74-year-old female presenting with chronic kidney disease and hypertension. Her kidney function has been stable since last July, and she is advised to maintain adequate hydration to support kidney health. She is on losartan to manage proteinuria, which is part of her chronic kidney disease management plan. The patient also reports knee pain, which has been persistent and severe enough to consider visiting the emergency room for further evaluation. She has attempted to contact her primary care physician but has faced delays in getting an appointment. Her blood pressure is monitored regularly at home by a visiting nurse, and it has been reported as stable and within normal limits. 09/05/25 The patient is a 74 year old female presenting for a follow-up visit for manag ement of hypertension and chronic kidney disease. She is on diltiazem and losartan for her blood pressure, but she did not take her medications this morning. Her blood pressure at home this morning was 135 mmHg. The patient reports constipation, with bowel movements every 3-4 days, for which she takes medication. Minimal protienuria Serologies were negative [facility] Medical History Asthma Skin cancer CKD (chronic kidney disease) stage 3, GFR 30-59 ml/min Chronic deep vein thrombosis (DVT) Right femoral vein DVT Osteoarthritis of knees, bilateral Mild recurrent major depression Polyarthralgia Osteopenia (~2007) Tubular adenoma of colon (~2009) Breast pain, left Postmenopausal Asthma-COPD overlap syndrome GERD (gastroesophageal reflux disease) HTN (hypertension) Paroxysmal atrial fibrillation (~01/2021) Dyslipidemia Hypothyroidism Pneumonia Eosinophilia Steroid dependent Chronic allergic rhinitis Surgical History History of right breast biopsy (~1998) History of colonoscopy History of D&C (~2002) History of tubal ligation History of shoulder surgery (~2006) History of nasal polypectomy (~2007) History of knee surgery Family History Father Medical history unknown Mother Alzheimer disease Daughter Lupus Other Arthritis Social History Household Members: None Housing: House Are you a primary healthcare technician to a significant other at home: No Do you presently have visiting nurse or other home services: Yes Alcohol intake: never Patient Tobacco Use Status: Former Tobacco user Tobacco use type: Cigarette e-Cigarette/Vaping Use: Never Used Second Hand Smoke Exposure: No Advance Directives Date on File: 11/10/20 service: No Current occupational status: disabled Cognitive needs: Yes (cane) Hearing needs: No Vision needs: Yes (glasses) Physical Exam Vital Signs: Last Vital Signs Pulse 80 09/05/25 09:36 BP 180/74 H 09/05/25 09:36 Pulse Ox 97 09/05/25 09:36 Oxygen Delivery Method Room Air 09/05/25 09:36 BMI result Body Mass Index 31.4 Comfortable Neck supple no JVD. Lungs entry equal no rales. Heart S1-S2 heard no gallop or rub. Abdomen soft nontender. Neuro alert awake oriented. No asterixis. Extremities no edema. Results Reviewed Nephrology Results: Hgb, (12.0-16.0) 11.4 g/dl L 08/20/25 WBC, (4.8-10.8) 7.5 X10*3/uL 08/20/25 Plt Count, (160-400) 332 X10*3/uL 08/20/25 Sodium, (135-145) 143 mmol/L 08/20/25 Potassium, (3.3-5.1) 4.5 mmol/L 08/20/25 Chloride, (96-108) 107 mmol/L 08/20/25 Carbon Dioxide, (22-29) 26 mmol/L 08/20/25 BUN, (9-16) 32 mg/dL H 08/20/25 Creatinine, (0.5-1.4) 2.11 mg/dL H 08/20/25 Calcium, (8.4-10.2) 9.2 mg/dL 08/20/25 PTH Intact, (8.7-77.1) 166.0 pg/mL H 07/30/25 Urine Protein, (Neg-Trace) 30 (1+) mg/dL H 07/30/25 Renal US 07/22/22 Assessment & Plan Assessment & Plan (1) HTN (hypertension): Code(s): I10 - Essential (primary) hypertension Category: Medical (2) CKD (chronic kidney disease) stage 4, GFR 15-29 ml/min: Code(s): N18.4 - Chronic kidney disease, stage 4 (severe) Category: Medical (3) Anemia in chronic kidney disease: Code(s): N18.9 - Chronic kidney disease, unspecified; D63.1 - Anemia in chronic kidney disease Category: Medical Qualifiers: Chronic kidney disease stage: stage 4 (severe) Qualified Code(s): N18.4 - Chronic kidney disease, stage 4 (severe); D63.1 - Anemia in chronic kidney disease Plan . 74-year-old woman with a history of asthma and hypertension with CKD 4. The EGFR is around 25- 35 mL/minute. Blood pressure is sub optimal Did not take her meds today Home BP was 135 sBP Watch BP for now If SBP > 140, would increase Diltiazem Encouraged to stay on low salt diet She has minimal proteinuria. Urinary sediments are benign. Sona probably has underlying hypertensive nephrosclerosis. Continue to avoid nephrotoxic agents including NSAIDs. Continue to monitor renal function closely along with urine protein excretion.- which has improved Serologies negative No absolute indication for biopsy at this time. Orders: Orders Comprehensive Met. Panel 3 Months I10 - Essential (primary) hypertension, N18.4 - Chronic kidney disease, stage 4 (severe) Complete Blood Count no Diff 3 Months I10 - Essential (primary) hypertension, N18.4 - Chronic kidney disease, stage 4 (severe) Parathyroid Hormone Intact 3 Months I10 - Essential (primary) hypertension, N18.4 - Chronic kidney disease, stage 4 (severe) UA and rflx microscopic 3 Months I10 - Essential (primary) hypertension Coding Level of Care Code Est Pt Level 4 (38130) Diagnoses HTN (hypertension) I10 CKD (chronic kidney disease) stage 4, GFR 15-29 ml/min N18.4 Anemia in stage 4 chronic kidney disease N18.4; D63.1 Chronic kidney disease stage: stage 4 (severe)
[2025-09-05 09:36] VITALS: BP 180/74; PULSE 80; O2SAT 97; BMI 31.4
--- OUTSIDE RECORDS SUMMARY | 2025-09-05 10:31 | XMS_ITS | Clinical Summary ---
Author Organization [address] [place] [address] Address [address] [place] [address] Phone Care Team Providers Care Cloth Framer Name Role Phone Angelique Valentine MD Primary Care Provider [phone] Allergies Active Allergy Reactions Criticality Noted Date [...] Description 06/28/2025 Telephone Plastic & Reconstructive Surgery [facility] [address] [facility] [address] [place] [address] Luis Alberto Marinelli, 06/17/2025 Telephone General Surgery [facility] [address] [facility] [address] [place] [address] Luis Alberto Marinelli, 06/14/2025 Telephone General Surgery [facility] [address] [place] [address] Luis Alberto Marinelli DO 06/12/2025 Telephone Plastic & Reconstructive Surgery [facility] [address] [place] [address] Luis Alberto Marinelli DO from [...] 75+ series) 2024 COVID-19 Vaccine ( - 2024-2 6 season) 2025 Influenza Vaccine (#1) 2025 8, [...] patient's age to complete this topic Insurance [facility] MEDICARE Member Subscriber Plan / Payer (Ef fective 2016-Present) Name:Sona Pinon Relation to Subscriber:Self Name:Sona Pinon Payer ID:[id number] Group ID:[id number] Type:Not on file Address: [place] [address] [id number] Care Teams Cloth Framer Relationship Specialty Start Date End Date Angelique Valentine MD [address] [facility] , [address] [facility] D/B/A: [facility] SEBASTIÁN Durbin PCP - General Internal Medicine 08/23/17
--- OUTSIDE RECORDS SUMMARY | 2025-09-05 10:32 | XMS_ITS | Encounter Summary ---
Author Organization [employer] Address [address] [facility] 7t [place] [address] Care Team Providers Care Hard Rock Miner Name Role Phone Unavailable Primary Care Provider Unavailabl e Reason for Visit * Reason Onset Date Comments mail appt slip with address of offfice Encounter Details Date Type Department Care Team (Late Contact Info) Description 11/09/2024 Telephone [facility] ADULT DENTAL [address] [place], [place] [id number] Frank Aldridge mail appt slip with address [...] Description 09/09/2025 10:30 AM EST Office Visit [facility] OPTOMETRY [address] [place], [place] [id number] Mustapha, Nirali, OD [address] [place] [address] documented as of this encounter Visit Diagnoses Not on filedocumented in this encounter
--- OUTSIDE RECORDS SUMMARY | 2025-09-05 10:32 | XMS_ITS | Encounter Summary ---
Author Organization [employer] Address [address] [facility] [address] [place] [address] Care Team Providers Care Equipment Maint Tech Name Role Phone Unavailable Primary Care Provider Unavailabl e Encounter Details Date Type Department Care Team (Late st Contact Info) Description 09/03/2022 Abstract [facility] ADULT DENTAL [address] [place] [address] Dental, Provider, DDS Social History Tobacco Use [...] [facility] [address] [place] [address] Nirali Luciano, OD [address] [place] [address] documented as of this encounter Procedures Procedure Name Priority Date/Time Associated Diagnosis Comments 25 MIFL COMPOSITE FILLING Routine 09/03/2022 12:00 AM EST documented in this encounter Visit Diagnoses Not on filedocumented in this encounter
--- OUTSIDE RECORDS SUMMARY | 2025-09-05 10:32 | XMS_ITS | Clinical Summary ---
Author Organization [facility] Address [address] [facility] [address] [place] [address] Phone Care Team Providers Care Social Media Job Titles Name Role Phone Angelique Li MD Primary Care Provider [phone] Allergies Active Allergy Reactions Criticality Noted Date [...] patient's age to complete this topic Insurance [facility] Dual SNP ([id number]) [facility] One Care Dual SNP ([id number]) Care Teams Social Media Job Titles Relationship Specialty Start Date End Date Angelique Li MD [address] [facility] [address] [place] [address] PCP - General Internal Medicine 04/07/22
--- OUTSIDE RECORDS SUMMARY | 2025-09-05 10:32 | XMS_ITS | Clinical Summary ---
Author Organization [employer] Address [address] [facility] 7[address] [place] [address] Care Team Providers Care Open Source Developer Name Role Phone Unavailable Primary Care Provider [...] Description 09/09/2025 10:30 AM EST Office Visit [facility] OPTOMETRY [address] [place] [address] Mustapha, Nirali, OD [address] [place] [address] Health Maintenance Due Date Last Done Comments [...] Most Recently Relevant to Health Maintenance Insurance [facility] HALF-WAY OPTIONS (HMO D-SNP) [facility]
== END 2025-09-05 09:57 | disposition home or self-care (01) ==
LOC: HO.HKA 09:22
PROVIDERS: PCP Internal Medicine; Visit Provider Internal Medicine Hypertension Specialist
DX: I12.9 Hypertensive chronic kidney disease with stage 1 through stage 4 chronic kidney disease, or unspecified chronic kidney disease (principal); N18.4 Chronic kidney disease, stage 4 (severe); D63.1 Anemia in chronic kidney disease
CPT/HCPCS: 99214

== ENCOUNTER → 2025-09-05 09:22 | Outpatient (BNVA) | payer OTHER, SELFPAY | PROVIDERS: PCP Internal Medicine; Visit Provider Internal Medicine Hypertension Specialist | DX: I12.9 Hypertensive chronic kidney disease with stage 1 through stage 4 chronic kidney disease, or unspecified chronic kidney disease (principal); D63.1 Anemia in chronic kidney disease; N18.4 Chronic kidney disease, stage 4 (severe); Z87.891 Personal history of nicotine dependence | CPT/HCPCS: 99212 ==

== ENCOUNTER 2025-09-25 08:22 | Outpatient (AMB) | payer OTHER, SELFPAY ==
--- OUTSIDE RECORDS SUMMARY | 2025-09-25 08:25 | XMS_ITS | Encounter Summary ---
Author Organization [employer] Address [address] [facility] 7[address] [place] [address] Care Team Providers Care Bagger And Stock Handler Helper Name Role Phone Unavailable Primary Care Provider Unavailabl e Encounter Details Date Type Department Care Team (Late st Contact Info) Description 09/03/2022 Abstract [facility] ADULT DENTAL [address] [place] [address] Dental, Provider, DDS Social History Tobacco Use Types Packs/Day Years Used Date Smoking Tobacco: Never Assessed Comments Unknown Sex and Gender Information Value Date Recorded Sex Assigned at Female 08/02/2022 10:15 AM EDT Legal Sex Female 10:15 AM EDT Gender Identity Female 08/02/2022 10:15 AM EDT Sexual Orientation Straight 08/02/2022 10 :15 AM EDT documented as of this encounter Plan of Treatment Not on file documented as of this encounter Procedures Procedure Name Priority Date/Time Associated Diagnosis Comments 25 MIFL COMPOSITE FILLING Routine 09/03/2022 12:00 AM EST documented in this encounter Visit Diagnoses Not on filedocumented in this encounter
--- OUTSIDE RECORDS SUMMARY | 2025-09-25 08:25 | XMS_ITS | Clinical Summary ---
Author Organization [employer] Address [address] [facility] 7[address] [place] [address] Care Team Providers Care Hand I Blocker Name Role Phone Unavailable Primary Care Provider [...] 10 :15 AM EDT Plan of Treatment Health Maintenance [...] Relevant to Health Maintenance Insurance [facility] LONG TERM OPTIONS (O D-SNP) DENTAL - [facility]
--- OUTSIDE RECORDS SUMMARY | 2025-09-25 08:25 | XMS_ITS | Encounter Summary ---
Author Organization [employer] Address [address] [facility] [address] [place] [address] Care Team Providers Care Clothes Marker Name Role Phone Unavailable Primary Care Provider Unavailabl e Reason for Visit * Reason Onset Date Comments mail appt slip with address of offfice Encounter Details Date Type Department Care Team ([facility] st Contact Info) Description 11/09/2024 Telephone [facility] CHC ADULT DENTAL [address] [place] [address] Frank Aldridge mail appt slip with address [...]
--- NOTE | 2025-09-25 08:52 | MHC.PC.OV ---
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: No Accompanied by: Self / Same As Patient Allergies sulfamethoxazole (From Bactrim) Allergy (Severe, Verified 09/25/25 09:11) Rash trimethoprim (From Bactrim) Allergy (Severe, Verified 09/25/25 09:11) Rash levofloxacin (From LEVAQUIN) Allergy (Intermediate, Verified 09/25/25 09:11) RASH SOB, DIZZYNESS tramadol Adverse Reaction (Severe, Verified 09/25/25 09:11) abdominal pain, vomiting atorvastatin (Lipitor) Adverse Reaction (Intermediate, Verified 09/25/25 09:11) nausea codeine (CODEINE) Adverse Reaction (Intermediate, Verified 09/25/25 09:11) NAUSEA & VOMITING morphine (MORPHINE) Adverse Reaction (Intermediate, Verified 09/25/25 09:11) NAUSEA & VOMITING pravastatin Adverse Reaction (Intermediate, Verified 09/25/25 09:11) myalgia rosuvastatin Adverse Reaction (Mild, Verified 09/25/25 09:11) myalgia Medication List - Last Reconciled 09/25/25 by Angelique Valentine MD acetaminophen ER 650 mg PO Q8H PRN 30 days [[place]ona pillow seat and cushion As directed] [adult diapers pull-ups As directed] [air conditioner As directed] albuterol sulfate 2.5 mg (3 mL) inhalation Q6H PRN 30 days albuterol sulfate 90 mcg/actuation (Ventolin HFA) 2 puffs PO Q6H PRN apixaban (Eliquis) 5 mg PO BID aripiprazole 5 mg PO DAILY betamethasone dipropionate 0.05% 1 appl topical DAILY PRN 2 weeks bisacodyl (Dulcolax (bisacodyl)) 20 mg (4 x 5 mg) PO ONCE 1 day cholecalciferol (vitamin D3) 25 mcg PO DAILY 90 days diclofenac sodium 1% (Arthritis Pain (diclofenac)) 2 grams topical QID PRN diltiazem HCl CD 120 mg PO DAILY diphenhydramine HCl (Banophen) 25 mg PO BEDTIME PRN escitalopram oxalate 10 mg PO DAILY fluocinolone acetonide oil 0.01% (DermOtic Oil) 5 drps otic (ear) left BID 7 days [hand held shower head As directed] hydrocortisone 1% (Anti-Itch (hydrocortisone)) 1 appl topical BID PRN 2 weeks ipratropium-albuterol 0.5 mg-3 mg(2.5 mg base)/3 mL 3 mL inhalation QID PRN latex gloves Use 1 pair of gloves twice a day levothyroxine 25 mcg PO DAILY 90 days levothyroxine (Synthroid) 50 mcg PO DAILY 90 days [lift recliner As directed] loratadine 10 mg PO DAILY 90 days losartan 25 mg PO DAILY 90 days mepolizumab (Nucala) 100 mg subcut Q4W nebulizers As directed [non disposable bed pads As directed] polyethylene glycol 3350 (Miralax) 238 grams PO ONCE prednisone 5 mg PO DAILY [quilted wipes As directed] [recliner As directed] rosuvastatin 20 mg PO DAILY 90 days sennosides (Natural Senna Laxative) 17.2 mg (2 x 8.6 mg) PO BEDTIME tamsulosin (Flomax) 0.4 mg PO DAILY 14 days triamcinolone acetonide 0.5% 1 appl topical BID umeclidinium 62.5 mcg/actuation (Incruse Ellipta) 1 inh inhalation DAILY 90 days underpads (Bed Underpads) As directed Tobacco use date assessed: 09/25/25 Fall risk assessment: No Falls in past year Last assessed Fall Risk: 09/25/25 Dental Screening Dental Screen Date: 09/25/25 Did you have a dental visit in the last 12 months?: No Did you have a dental problem in the last 6 months where you did not have access to dental care?: No Was dental information given to patient?: Patient has dentist HPI HPI Comments History of Present Illness Details This is a 74-year-old female with essential hypertension, chronic kidney disease stage IV, atrial fibrillation on chronic anticoagulation, hyperparathyroidism that is secondary to chronic kidney disease, dyslipidemia, asthma-COPD overlap syndrome and mild major depression that comes today for follow-up on her conditions. Blood pressure elevated but was recheck and it was within normal limits. GFR worsened to 23 and chronic kidney disease with secondary hyperparathyroidism is follow by Nephrology. Cholesterol well controlled because she is taking her statins. She also has hypothyroidism in which levothyroxine was mildly increase it will be repeated next month. On long-acting inhaler for her asthma-COPD overlap syndrome which is follow by pulmonology. On Abilify for depression in which said that in holidays is mildly worsened. [facility] [place] Medical History Asthma Skin cancer CKD (chronic kidney disease) stage 3, GFR 30-59 ml/min Chronic deep vein thrombosis (DVT) Right femoral vein DVT Osteoarthritis of knees, bilateral Mild recurrent major depression Polyarthralgia Osteopenia (~2007) Tubular adenoma of colon (~2009) Breast pain, left Postmenopausal Asthma-COPD overlap syndrome GERD (gastroesophageal reflux disease) HTN (hypertension) Paroxysmal atrial fibrillation (~01/2021) Dyslipidemia Hypothyroidism Pneumonia Eosinophilia Steroid dependent Chronic allergic rhinitis Surgical History History of right breast biopsy (~1998) History of colonoscopy History of D&C (~2002) History of tubal ligation History of shoulder surgery (~2006) History of nasal polypectomy (~2007) History of knee surgery Family History Father Medical history unknown Mother Alzheimer disease Daughter Lupus Other Arthritis Social History Household Members: None Housing: House Are you a primary lawn care technician to a significant other at home: No Do you presently have visiting nurse or other home services: Yes Alcohol intake: never Patient Tobacco Use Status: Former Tobacco user Tobacco use type: Cigarette e-Cigarette/Vaping Use: Never Used Second Hand Smoke Exposure: No Advance Directives Date on File: 11/10/20 service: No Current occupational status: disabled Cognitive needs: Yes (cane) Hearing needs: No Vision needs: Yes (glasses) Questionnaire Thrive Questionnaire Date Thrive assessed: 12/26/24 I am a: Patient What is your living situation today?: I have a steady place to live Within the past 12 months, did the food you bought not last and you didn't have the money to get more?: Never true Within the past 12 months, did you worry whether your food would run out before you got money to buy more?: Never true Do you have trouble paying for medicines?: No Do you have trouble getting transportation to medical appointments?: No Do you have trouble paying your heating and electricity bill?: No Do you have trouble taking care of your child, family member or friend?: No Do you have trouble with day-to-day activities such as bathing, preparing meals, shopping, managing finances, etc.?: No Are you currently unemployed and looking for a job?: Yes Are you interested in more education?: No Currently or been in a relationship where the following occur: No concerns reported THRIVE Score: 0 FABIOLA-7 AMB Questionnaire FABIOLA-7 Date FABIOLA - 7 assessed: 12/26/24 Source: Developed by Drs. Mk Zapata, Roseline Pantoja, Nura Bailon and colleagues, with an educational camila from [employer]. Review of Systems Const All systems reviewed & are unremarkable except as noted in HPI and below Card Denies chest pain at rest, Denies chest pain with activity, Denies edema, Denies irregular heart rhythm, Denies claudication, Denies dyspnea, Denies dyspnea on exertion, Denies orthopnea, Denies paroxysmal nocturnal dyspnea and Denies slow heart rate Resp Denies cough, Denies dyspnea and Denies dyspnea on exertion GI Denies abdominal pain, Denies change in bowel habits, Denies excessive flatus, Denies nausea and Denies vomiting Physical exam (Primary Care) Vital Signs: Last Vital Signs Pulse 82 09/25/25 08:56 Resp 18 09/25/25 08:56 BP 158/66 H 09/25/25 08:56 Pulse Ox 98 09/25/25 08:56 Oxygen Delivery Method Room Air 09/25/25 08:56 BMI result Body Mass Index 31.8 BMI Assessment/Plan discussion: High BMI High, discussed plan: lifestyle, weight reduction, dietary and physical activity Tobacco/Smoking Status: Tobacco use Status Tobacco use date assessed 09/25/25 09/25/25 09:04 Patient Tobacco Use Status Former Tobacco user 09/25/25 08:54 Tobacco use type Cigarette 09/25/25 08:54 e-Cigarette/Vaping Use Never Used 09/25/25 08:54 Thrive Assessment: Date of Thrive Assessment Date Thrive assessed 12/26/24 09/25/25 08:54 Currently or been in a relationship where the following occur: No concerns reported Resp Effort & Inspection: normal respiratory effort Auscultation: clear to auscultation bilaterally Cardio Jugular venous distension: no JVD Rate: regular rate Rhythm: regular rhythm Heart sounds: S1 normal heart sound present and S2 normal heart sound present Extrem General: Yes full ROM Coding Level of Care Code Add On Preventative Visit Only Diagnoses Mild recurrent major depression F33.0 Essential hypertension I10 Paroxysmal atrial fibrillation I48.0 Hypothyroidism, unspecified type E03.9 Hypothyroidism type: unspecified Hyperparathyroidism E21.3 CKD (chronic kidney disease) stage 4, GFR 15-29 ml/min N18.4 Asthma-COPD overlap syndrome J44.9 Time Spent (min) 22 Assessment & Plan Assessment & Plan (1) Mild recurrent major depression: Code(s): F33.0 - Major depressive disorder, recurrent, mild Category: Medical (2) Essential hypertension: Code(s): I10 - Essential (primary) hypertension Category: Medical (3) Paroxysmal atrial fibrillation: Onset Date: ~01/2021 Code(s): I48.0 - Paroxysmal atrial fibrillation Category: Medical (4) Hypothyroidism: Code(s): E03.9 - Hypothyroidism, unspecified Category: Medical Qualifiers: Hypothyroidism type: unspecified Qualified Code(s): E03.9 - Hypothyroidism, unspecified (5) Hyperparathyroidism: Code(s): E21.3 - Hyperparathyroidism, unspecified Category: Medical (6) CKD (chronic kidney disease) stage 4, GFR 15-29 ml/min: Code(s): N18.4 - Chronic kidney disease, stage 4 (severe) Category: Medical (7) Asthma-COPD overlap syndrome: Code(s): J44.9 - Chronic obstructive pulmonary disease, unspecified Category: Medical Plan Continue same medications. Repeat TSH. Follow-up with pulmonology for asthma-COPD overlap syndrome. Follow-up with nephrology for chronic kidney disease. Keep blood pressure within goal being less than 130/80.
[2025-09-25 08:56] VITALS: BP 158/66; PULSE 82; RESP 18; O2SAT 98; BMI 31.8
[2025-09-25 09:25] VITALS: BP 130/80
== END 2025-09-25 09:23 | disposition home or self-care (01) ==
LOC: HO.HMCH 08:22
PROVIDERS: PCP Internal Medicine; Visit Provider Internal Medicine
DX: F33.0 Major depressive disorder, recurrent, mild (principal); I12.9 Hypertensive chronic kidney disease with stage 1 through stage 4 chronic kidney disease, or unspecified chronic kidney disease; I48.0 Paroxysmal atrial fibrillation; E03.9 Hypothyroidism, unspecified; E21.3 Hyperparathyroidism, unspecified; N18.4 Chronic kidney disease, stage 4 (severe); J44.9 Chronic obstructive pulmonary disease, unspecified

== ENCOUNTER → 2025-09-25 08:22 | Outpatient (BNVA) | payer OTHER, SELFPAY | PROVIDERS: PCP Internal Medicine; Visit Provider Internal Medicine | DX: I10 Essential (primary) hypertension (principal); I48.0 Paroxysmal atrial fibrillation; F33.0 Major depressive disorder, recurrent, mild; E03.9 Hypothyroidism, unspecified; E21.3 Hyperparathyroidism, unspecified; N18.4 Chronic kidney disease, stage 4 (severe); J44.9 Chronic obstructive pulmonary disease, unspecified; Z79.899 Other long term (current) drug therapy | CPT/HCPCS: 99212 ==